=== PATIENT | female | born 1955 | race Caucasian/White ===

== ENCOUNTER 2020-12-22 10:13 | Outpatient (REF) | payer MEDICARE, SELFPAY ==
[2020-12-22 13:43] LABS: MANUAL DIFF FLAG NO
[2020-12-22 13:52] LABS: Glucose Urine UA NEG (NEG); Leukocyte Esterase Urine NEG (NEG); Nitrite Urine NEG (NEG); Urine Blood 2+ (NEG); Urine Ketones NEG (NEG); Urine Protein 2+ MG/DL (NEG-TRACE)
[2020-12-22 13:54] LABS: Appearance Urine HAZY; Color Urine YELLOW
[2020-12-22 13:57] LABS: Basophils Absolute Auto 0.1 X10*3/uL (0.0-0.2); Basophils Percent Auto 0.4 % (0-2); Eosinophils Absolute Auto 0.3 X10*3/uL (0.0-0.4); Eosinophils Percent Auto 2.1 % (0-4); Hematocrit 33.8 % (37-47); Hemoglobin 10.4 g/dl (12.0-16.0); Imm Gran Abs Auto 0.04 X10*3/uL (0.00-0.03); Imm Gran Pct Auto 0.3 % (0.0-0.4); Lymphocytes Absolute Auto 1.3 X10*3/uL (1.2-4.9); Lymphocytes Percent Auto 11.1 % (20-40); Mean Corpuscular HGB Conc 30.8 g/dl (31.0-35.0); Mean Corpuscular Hemoglobin 28.1 pg (27.0-33.0); Mean Corpuscular Volume 91.4 fL (80-98); Mean Platelet Volume 10.7 fL (9.4-12.3); Monocytes Absolute Auto 0.6 X10*3/uL (0.1-1.2); Monocytes Percent Auto 5.2 % (2-11); Neutrophils Absolute Auto 9.7 X10*3/uL (2.0-8.3); Neutrophils Percent Auto 80.9 % (45-73); Platelet Count 363 X10*3/uL (160-400); Red Cell Distribution Width 13.8 % (11.0-16.0); White Blood Count 11.9 X10*3/uL (4.8-10.8)
[2020-12-22 14:10] LABS: Bacteria Urine 4+ /LPF; Squamous Epithelial Cell Urine 4+ /LPF
[2020-12-22 14:11] LABS: Uric Acid Crystals Urine 1+ /LPF
[2020-12-22 14:39] LABS: Alanine Aminotransferase 17 U/L (0-31); Albumin Level 3.9 g/dL (3.5-5.0); Alkaline Phosphatase 121 U/L (39-117); Anion Gap 13 (12-20); Aspartate Amino Transferase 16 U/L (5-31); Bilirubin Direct 0.2 mg/dL (0.0-0.5); Bilirubin Total 0.3 mg/dL (0.0-1.0); Blood Urea Nitrogen 44 mg/dL (9-16); Calcium 9.1 mg/dL (8.4-10.2); Carbon Dioxide 23 mmol/L (22-29); Chloride 112 mmol/L (96-108); Cholesterol 148 mg/dL; Estimated Glomerular Filt Rate 39; Glucose Fasting 42 mg/dL (60-99); HDL Cholesterol 59 mg/dL; LDL Cholesterol Calculated 66 mg/dl; Potassium 5.3 mmol/L (3.3-5.1); Sodium 143 mmol/L (135-145); TSH reflex Free T4 2.41 uIU/mL (0.32-4.0); Total Protein 6.8 g/dL (6.5-8.0); Triglycerides 119 mg/dL
[2020-12-22 14:46] LABS: Creatinine Urine 45.22 mg/dL
[2020-12-22 14:47] LABS: Thyroid Stimulating Hormone 2.26 uIU/mL (0.32-4.0)
== END 2020-12-22 10:14 | disposition home or self-care (01) ==
LOC: HO.WFDLDS 10:13
PROVIDERS: Visit Provider Hospitalist
DX: Z00.00 Encounter for general adult medical examination without abnormal findings (principal)
CPT/HCPCS: 36415; 80048; 80061; 80076; 81001; 82043; 84443; 85025

== ENCOUNTER 2020-12-28 12:17 | Outpatient (REF) | payer MEDICARE, SELFPAY | END 2020-12-28 12:18 | disposition home or self-care (01) | LOC: HO.LAB 12:17 | PROVIDERS: Visit Provider Hospitalist | DX: R82.90 Unspecified abnormal findings in urine (principal) | CPT/HCPCS: 87086 ==

== ENCOUNTER 2021-04-03 07:56 | Outpatient (REF) | payer MEDICARE, SELFPAY ==
[2021-04-03 11:34] LABS: Alanine Aminotransferase 19 U/L (0-31); Albumin Level 3.8 g/dL (3.5-5.0); Alkaline Phosphatase 166 U/L (39-117); Anion Gap 15 (12-20); Aspartate Amino Transferase 15 U/L (5-31); Bilirubin Total 0.5 mg/dL (0.0-1.0); Blood Urea Nitrogen 38 mg/dL (9-16); Calcium 9.1 mg/dL (8.4-10.2); Carbon Dioxide 24 mmol/L (22-29); Chloride 111 mmol/L (96-108); Estimated Glomerular Filt Rate 31; Glucose Random 43 mg/dL (60-115); Potassium 4.8 mmol/L (3.3-5.1); Sodium 145 mmol/L (135-145); Total Protein 6.6 g/dL (6.5-8.0)
== END 2021-04-03 07:57 | disposition home or self-care (01) ==
LOC: HO.WFDLDS 07:56
PROVIDERS: Visit Provider Family Medicine
DX: Z00.00 Encounter for general adult medical examination without abnormal findings (principal); R60.0 Localized edema
CPT/HCPCS: 36415; 80053; 84443

== ENCOUNTER 2021-04-21 11:03 | Outpatient (REF) | payer MEDICARE, SELFPAY ==
[2021-04-21 14:30] LABS: Anion Gap 14 (12-20); Blood Urea Nitrogen 42 mg/dL (9-16); Carbon Dioxide 21 mmol/L (22-29); Chloride 112 mmol/L (96-108); Estimated Glomerular Filt Rate 34; Glucose Random 130 mg/dL (60-115); Potassium 5.2 mmol/L (3.3-5.1); Sodium 142 mmol/L (135-145)
== END 2021-04-21 11:04 | disposition home or self-care (01) ==
LOC: HO.WFDLDS 11:03
PROVIDERS: Visit Provider Family Medicine
DX: Z00.00 Encounter for general adult medical examination without abnormal findings (principal); R60.0 Localized edema
CPT/HCPCS: 36415; 80048

== ENCOUNTER 2021-06-09 12:23 | Inpatient (IN) | payer MEDICARE, OTHER, SELFPAY ==
--- NOTE | ~2021-06-09 | XR_ITS ---
EXAMINATION: XR CHEST CLINICAL INFORMATION: Follow-up infiltrates COMPARISON: Previous chest x-ray most recent from yesterday TECHNIQUE: Frontal view of the chest was obtained. FINDINGS: The cardiac and mediastinal contours are stable. There are bilateral infiltrates, right greater than left. These do not appear appreciably changed from yesterday's exam. There is no pleural effusion or pneumothorax. There are degenerative changes of the spine. XR/XR chest 1V IMPRESSION: Bilateral infiltrates, right greater than left, not appreciably changed from yesterday's exam.
--- NOTE | ~2021-06-09 | XR_ITS ---
EXAMINATION: XR CHEST CLINICAL INFORMATION: Shortness of breath COMPARISON: None TECHNIQUE: Frontal view of the chest was obtained. FINDINGS: Extensive right greater than left multifocal multilobar infiltration. No parapneumonic effusion. No other focal lesion. Heart and mediastinal normal. No CHF. No pleural disease. XR/XR chest 1V IMPRESSION: Baseline examination demonstrates extensive infiltrates consistent with pneumonia or atypical infection.
--- NOTE | ~2021-06-09 | XR_ITS ---
EXAMINATION: XR CHEST CLINICAL INFORMATION: Follow-up SOB COMPARISON: Chest 06/09/2021 TECHNIQUE: Frontal view of the chest was obtained. FINDINGS: The lungs are well-expanded with patchy opacities seen in the right lung and left midlung area suggestive of infiltrates. Heart size is enlarged. The pulmonary vascularity is normal. No gross bony abnormality seen. XR/XR chest 1V IMPRESSION: Mild cardiomegaly. Patchy opacities in the right midlung, right lower lobe and left midlung consistent with infiltrates are stable. Mild cardiomegaly is stable.
--- NOTE | ~2021-06-09 | CT_ITS ---
EXAMINATION: CT CHEST WITHOUT CONTRAST CLINICAL INFORMATION: Hypoxia. Shortness of breath. COMPARISON: CXR from 06/09/2021 and 06/10/2021. TECHNIQUE: Multidetector volumetric CT imaging of the chest was done. Axial MIP volume rendering provided. Sagittal and coronal reformatted images were obtained. This CT examination was performed using dose optimization techniques as appropriate, variously including the following: *Automated exposure control *Adjustment of mA and/or kV according to patient size (this includes techniques or standardized protocols for targeted exams where dose is matched to indication/reason for exam; i.e. extremities or head) *Use of iterative reconstruction technique DLP: 467 mGy-cm FINDINGS: LUNGS AND PLEURA: Trachea and central airways are widely patent and normal in caliber. Lungs have mosaic attenuation. Patchy groundglass opacities are scattered throughout both lungs and there is thickening of septa, most conspicuous in the middle lobe and right lower lobe. Small right pleural effusion and trace left pleural effusion are present. No pneumothorax. CARDIOVASCULAR: Mild cardiomegaly. Small pericardial effusion. There is three-vessel coronary artery calcification. Pulmonary arteries are normal in size. Mild atherosclerotic calcification of the thoracic aorta without aneurysm. MEDIASTINUM AND LOWER NECK: The esophagus and thyroid gland are unremarkable. No mediastinal mass. LYMPHATICS: No axillary or internal mammary lymphadenopathy. No large hilar lymph nodes are seen. Multiple lymph nodes are present in the mediastinum. These lymph nodes measure less than 1 cm, with exception of a subcarinal lymph node of approximately 1 cm short axis dimension. These lymph nodes are likely reactive to the pulmonary disease. UPPER ABDOMEN: Large body habitus. Diffuse hepatic steatosis. Adrenal glands are normal. SKELETAL AND CHEST WALL: Moderate discovertebral degenerative change at C5-C6 and C6-C7. Also, there are mild and moderate degenerative changes in the thoracic spine with multilevel osteophyte or enthesophyte formation of the spine. No suspicious bone lesion. CT/CT chest wo con IMPRESSION: * There are findings of mild cardiomegaly, bilateral groundglass opacities and pleural effusions (small on the right, trace on the left). Constellation of findings suggest presence of edema/CHF, although it would be difficult to exclude any superimposed infectious pneumonitis. * Large body habitus and diffuse hepatic steatosis.
--- NOTE | ~2021-06-09 | XR_ITS ---
EXAMINATION: XR CHEST CLINICAL INFORMATION: Hypoxia follow-up. COMPARISON: Multiple prior studies. Most recent exam Chest x-ray June 10, 2021. CT of chest June 10, 2021 TECHNIQUE: Frontal portable view of the chest was obtained. 9:53 PM FINDINGS: Persistent patchy right lateral multifocal airspace disease. Airspace disease is worse on the right, compared to left lung. There is no significant change of the airspace disease since prior chest x-ray of June 10, 2021. No pleural effusion or pneumothorax. The cardiac and mediastinal contours are unchanged. There is no pulmonary vascular congestion. XR/XR chest 1V IMPRESSION: Persistent patchy multifocal airspace disease, right worse than left.
[2021-06-09 13:40] VITALS: BP 126/48; PULSE 71; RESP 17; TEMP 36.9; O2SAT 84; BMI 46.3
--- NOTE | 2021-06-09 14:13 | ED_ITS ---
HPI - SOB/Dyspnea General Chief Complaint: Upper Respiratory Symptoms Stated Complaint: SOB Time Seen by Provider: 06/09/21 14:12 Source: patient Mode of arrival: ambulatory Limitations: no limitations History of Present Illness HPI Narrative: Patient has history of hypertension diabetes high cholesterol been feeling increased shortness of breath for last 1 month with increased leg swelling seen PCP who gave her Lasix for few days. Shortness of breath has increased since yesterday at home was saturating 86% at room air went to see her PCP and after ambulating from parking lot to the doctor's office her pulse ox dropped to 74% at room air patient does have dry cough specially when she lays down no chest pain no palpitation patient never had a diagnosis of heart failure no fever or chills Related Data Home Medications Medication Instructions Recorded Confirmed cholecalciferol (vitamin D3) 25 25 mcg PO DAILY 08/23/20 06/09/21 mcg (1,000 unit) capsule ibuprofen 800 mg tablet 800 mg PO TID PRN 08/23/20 06/09/21 insulin lispro 100 unit/mL See Protocol SUBCUT QIDACHS 08/23/20 06/09/21 subcutaneous pen ascorbic acid (vitamin C) 500 mg 250 mg PO DAILY 09/22/20 06/09/21 tablet ferrous sulfate 325 mg (65 mg 325 mg PO DAILY 09/22/20 06/09/21 iron) tablet (FeroSul) fexofenadine 180 mg tablet 180 mg PO DAILY 09/22/20 06/09/21 xvftfdvugmsj-Mv-jveq-minerals 1 tab PO DAILY 09/22/20 06/09/21 (Multiple Vitamin, Womens) Previous Rx's Medication Instructions Recorded fluoxetine 20 mg capsule 20 mg PO DAILY 90 Days #90 cap 10/19/20 lisinopril 20 mg tablet 20 mg PO DAILY 30 Days #30 tab 10/19/20 carvedilol 3.125 mg tablet 3.125 mg PO BID #180 tab 02/01/21 amlodipine 10 mg tablet 10 mg PO DAILY #90 tab 05/02/21 atorvastatin 80 mg tablet 80 mg PO DAILY #90 tab 05/30/21 insulin glargine 100 unit/mL (3 70 unit SUBCUT BEDTIME #15 ml 05/30/21 mL) subcutaneous pen (Lantus Solostar U-100 Insulin) pen needle, diabetic 32 gauge x 1 ea TOPICAL BID-TID #300 ea 05/30/21 (BD Ultra-Fine Susana Pen Needle) Allergies Allergy/AdvReac Type Severity Reaction Status Date / Time penicillin V Allergy Severe joint Verified 06/09/21 11:28 swelling and rash Review of Systems Review of Systems: Constitutional : No Weight loss, No Fever, No Chills ENT/Mouth : No sore throat, No Rhinorrhea Eyes: No Eye Pain, No Swelling Cardiovascular : No Chest Pain, no palpitations Respiratory : +Cough, No Sputum, ++ shortness of breath Gastrointestinal : no Nausea, No Vomiting, No Diarrhea, No abdominal Pain, no black stools Genitourinary : No Dysuria, No Urinary Frequency Musculoskeletal : No joint pain, No Myalgias, No Joint Swelling Skin : No Skin Lesions, No rash Neuro : No Weakness, No Numbness, No Dizziness, No Headache Psych : No Anxiety/Panic, No Depression Heme/Lymph: No Bruising, No Lymphadenopathy Endocrine : No Polyuria, No Polydipsia All other systems reviewed and are negative PMFSH Past Medical History Medical History Bilateral lower extremity edema Diabetes type 2, uncontrolled High cholesterol Hypertension, essential Surgical History History of D&C History of surgery Family History Family History Father Stroke Mother Stroke Hypertension Diabetes Maternal Grandmother Diabetes Hypertension Stroke Sister Diabetes Breast cancer Son Bipolar 1 disorder Overweight Social History Social History Alcohol intake: never Smoked in Last 30 Days: No Use of substances other than those prescribed or required for medical reasons: No Advance Directives: Yes Advance Directives Information Provided: Yes Advance Directives on File: No Physical Exam Vital Signs: Vital Signs: Last Vital Signs Temp 98.1 F 06/09/21 14:47 Pulse 73 06/09/21 14:47 Resp 22 H 06/09/21 14:47 BP 130/49 L 06/09/21 14:47 Pulse Ox 98 06/09/21 15:27 Oxygen Flow Rate 5 06/09/21 15:27 Body Mass Index 46.3 Appearance: Alert. Oriented X3. No acute distress. Eyes: PERRLA, No Nystagmus ENT: Pharynx normal. Oral Mucosa moist Neck: Normal inspection. Neck supple. CVS: Normal heart rate and rhythm. Pulses normal. Respiratory: No respiratory distress. Equal air entry bilateral, no whe ezing/rhonchi , bilateral bases fine crackles Abdomen: Soft and nontender. Bowel sounds are present, no mass palpable, no CVA tenderness Skin: Skin warm and dry. Normal skin color. Normal skin turgor. Extremities: 4+ lower extremity edema. No calf tenderness Neuro: Oriented X 3. No motor deficit. No sensory deficit.No cerebellar signs , cranial nerves II-XII intact MDM - SOB/Dyspnea MDM Narrative Medical decision making narrative: Patient with fluid overload with objective shortness of breath and desaturating to 74% on ambulation chest x-ray showed bilateral diffuse infiltrate COVID is negative clinically patient has CHF because of atypical chest x-ray finding will start her on antibiotics Lab Data Attestation: I reviewed the patient's lab results. Result diagrams: 06/09/21 14:15 06/09/21 14:15 Labs: Lab Results 06/09/21 06/09/21 06/09/21 Range/Units 14:04 14:15 14:15 WBC 13.7 H (4.8-10.8) X10*3/uL RBC 3.15 L (4.20-5.50) X10*6/uL Hgb 8.9 L (12.0-16.0) g/dl Hct 28.6 L (37-47) % MCV 90.8 (80-98) fL MCH 28.3 (27.0-33.0) pg MCHC 31.1 (31.0-35.0) g/dl RDW 15.2 (11.0-16.0) % Plt Count 370 (160-400) X10*3/uL MPV 9.8 (9.4-12.3) fL Immature Gran % (Auto) 0.7 H (0.0-0.4) % Neut % (Auto) 86.3 H (45-73) % Lymph % (Auto) 7.2 L (20-40) % [place] % (Auto) 4.3 (2-11) % Eos % (Auto) 1.1 (0-4) % Baso % (Auto) 0.4 (0-2) % Lymph # (Auto) 1.0 L (1.2-4.9) X10*3/uL [place] # (Auto) 0.6 (0.1-1.2) X10*3/uL Eos # (Auto) 0.2 (0.0-0.4) X10*3/uL Baso # (Auto) 0.1 (0.0-0.2) X10*3/uL Abs Immat Gran (auto) 0.09 H (0.00-0.03) X10*3/uL Absolute Neuts (auto) 11.8 H (2.0-8.3) X10*3/uL Absolute Nucleated RBC 0.000 (0.0-0.012) X10*3/uL Nucleated RBC % (auto) 0.0 (0.0-0.2) /100WBC Sodium 141 (135-145) mmol/L Potassium 5.2 H (3.3-5.1) mmol/L Chloride 111 H (96-108) mmol/L Carbon Dioxide 19 L (22-29) mmol/L Anion Gap 16 (12-20) BUN 39 H (9-16) mg/dL Creatinine 1.72 H (0.5-1.4) mg/dL Estim Creat Clear Calc 38.0 Estimated GFR 30 Random Glucose 163 H (60-115) mg/dL Lactic Acid (0.5-2.0) mmol/L Calcium 8.6 (8.4-10.2) mg/dL Total Bilirubin 0.6 (0.0-1.0) mg/dL AST 24 D (5-31) U/L ALT 29 (0-31) U/L Alkaline Phosphatase 132 H D (39-117) U/L Troponin I High Sens (<3.5-17.0) ng/L B-Natriuretic Peptide (<100) pg/mL Total Protein 6.4 L (6.5-8.0) g/dL Albumin 3.6 (3.5-5.0) g/dL Lipase 10 (8-78) U/L Coronavirus (PCR) NEGATIVE (Negative) Influenza Type A (PCR) NEGATIVE (Negative) Influenza Type B (PCR) NEGATIVE (Negative) RSV RNA Qual (PCR) NEGATIVE (Negative) 06/09/21 06/09/21 Range/Units 14:15 14:15 WBC (4.8-10.8) X10*3/uL RBC (4.20-5.50) X10*6/uL Hgb (12.0-16.0) g/dl Hct (37-47) % MCV (80-98) fL MCH (27.0-33.0) pg MCHC (31.0-35.0) g/dl RDW (11.0-16.0) % Plt Count (160-400) X10*3/uL MPV (9.4-12.3) fL Immature Gran % (Auto) (0.0-0.4) % Neut % (Auto) (45-73) % Lymph % (Auto) (20-40) % [place] % (Auto) (2-11) % Eos % (Auto) (0-4) % Baso % (Auto) (0-2) % Lymph # (Auto) (1.2-4.9) X10*3/uL [place] # (Auto) (0.1-1.2) X10*3/uL Eos # (Auto) (0.0-0.4) X10*3/uL Baso # (Auto) (0.0-0.2) X10*3/uL Abs Immat Gran (auto) (0.00-0.03) X10*3/uL Absolute Neuts (auto) (2.0-8.3) X10*3/uL Absolute Nucleated RBC (0.0-0.012) X10*3/uL Nucleated RBC % (auto) (0.0-0.2) /100WBC Sodium (135-145) mmol/L Potassium (3.3-5.1) mmol/L Chloride (96-108) mmol/L Carbon Dioxide (22-29) mmol/L Anion Gap (12-20) BUN (9-16) mg/dL Creatinine (0.5-1.4) mg/dL Estim Creat Clear Calc Estimated GFR Random Glucose (60-115) mg/dL Lactic Acid 0.7 (0.5-2.0) mmol/L Calcium (8.4-10.2) mg/dL Total Bilirubin (0.0-1.0) mg/dL AST (5-31) U/L ALT (0-31) U/L Alkaline Phosphatase (39-117) U/L Troponin I High Sens 7.0 (<3.5-17.0) ng/L B-Natriuretic Peptide 173 H (<100) pg/mL Total Protein (6.5-8.0) g/dL Albumin (3.5-5.0) g/dL Lipase (8-78) U/L Coronavirus (PCR) (Negative) Influenza Type A (PCR) (Negative) Influenza Type B (PCR) (Negative) RSV RNA Qual (PCR) (Negative) ECG Data Attestation: I personally reviewed and interpreted this ECG as follows: Discharge Plan Discharge Clinical Impression: Shortness of breath Congestive heart failure Qualifiers: Heart failure type: unspecified Heart failure chronicity: unspecified Qualified Code(s): I50.9 - Heart failure, unspecified Pneumonia Qualifiers: Pneumonia type: due to unspecified organism Laterality: bilateral Lung location: unspecified part of lung Qualified Code(s): J18.9 - Pneumonia, unspecified organism Patient Disposition: Admitted As Inpatient
[2021-06-09 14:21] LABS: MANUAL DIFF FLAG NO
[2021-06-09 14:26] LABS: Basophils Absolute Auto 0.1 X10*3/uL (0.0-0.2); Basophils Percent Auto 0.4 % (0-2); Eosinophils Absolute Auto 0.2 X10*3/uL (0.0-0.4); Eosinophils Percent Auto 1.1 % (0-4); Hematocrit 28.6 % (37-47); Hemoglobin 8.9 g/dl (12.0-16.0); Imm Gran Abs Auto 0.09 X10*3/uL (0.00-0.03); Imm Gran Pct Auto 0.7 % (0.0-0.4); Lymphocytes Percent Auto 7.2 % (20-40); Mean Corpuscular HGB Conc 31.1 g/dl (31.0-35.0); Mean Corpuscular Hemoglobin 28.3 pg (27.0-33.0); Mean Corpuscular Volume 90.8 fL (80-98); Mean Platelet Volume 9.8 fL (9.4-12.3); Monocytes Absolute Auto 0.6 X10*3/uL (0.1-1.2); Monocytes Percent Auto 4.3 % (2-11); Neutrophils Absolute Auto 11.8 X10*3/uL (2.0-8.3); Neutrophils Percent Auto 86.3 % (45-73); Platelet Count 370 X10*3/uL (160-400); Red Blood Count 3.15 X10*6/uL (4.20-5.50); Red Cell Distribution Width 15.2 % (11.0-16.0); White Blood Count 13.7 X10*3/uL (4.8-10.8)
[2021-06-09 14:45] LABS: Lactic Acid 0.7 mmol/L (0.5-2.0)
[2021-06-09 14:47] VITALS: BP 130/49; PULSE 73; RESP 22; TEMP 36.7; O2SAT 94
[2021-06-09 14:55] LABS: B Type Natriuretic Peptide 173 pg/mL (<100)
[2021-06-09] MEDS: Furosemide 40 MG/4 ML VIAL IVPUSH ×2 (14:55→18:22)
[2021-06-09 15:02] LABS: Alanine Aminotransferase 29 U/L (0-31); Albumin Level 3.6 g/dL (3.5-5.0); Alkaline Phosphatase 132 U/L (39-117); Anion Gap 16 (12-20); Aspartate Amino Transferase 24 U/L (5-31); Bilirubin Total 0.6 mg/dL (0.0-1.0); Blood Urea Nitrogen 39 mg/dL (9-16); Calcium 8.6 mg/dL (8.4-10.2); Carbon Dioxide 19 mmol/L (22-29); Chloride 111 mmol/L (96-108); Estimated Glomerular Filt Rate 30; Glucose Random 163 mg/dL (60-115); Lipase 10 U/L (8-78); Potassium 5.2 mmol/L (3.3-5.1); Sodium 141 mmol/L (135-145); Total Protein 6.4 g/dL (6.5-8.0)
[2021-06-09 15:18] LABS: Influenza A PCR NEGATIVE (Negative); Influenza B PCR NEGATIVE (Negative); Resp Syncy Virus RNA Qual PCR NEGATIVE (Negative); SARS COV2 PCR INHOUSE NEGATIVE (Negative)
[2021-06-09 15:27] VITALS: PULSE 68; O2SAT 98
--- NOTE | 2021-06-09 15:49 | ECG_ITS ---
Test Reason : SOB Blood Pressure : / mmHG Vent. Rate : 072 BPM Atrial Rate : 072 BPM P-R Int : 180 ms QRS Dur : 102 ms QT Int : 414 ms P-R-T Axes : 033 025 029 degrees QTc Int : 453 ms Normal sinus rhythm Normal ECG No previous ECGs available Referred By: Erik Hunt Electronically Signed By:DANIEL URIAS
[2021-06-09] MEDS: Piperacillin Sodium/Tazobactam 3.375 GM in 0.9 % Sodium Chloride 50 ML IV (15:57)
--- NOTE | 2021-06-09 16:13 | HE.PHANOTE ---
Pharmacy Consult ? Medication Reconciliation Pharmacy has completed the medication reconciliation and there were no significant medication issues requiring provider attention.? Silke VelascoD
--- NOTE | 2021-06-09 16:22 | PM.IMHP ---
History of Present Illness Date of Service: 06/09/21 Chief Complaint: sob 66F presented with lower extremity edema and shortness of breath. Patient states that over last 2 months she has been having worsening lower extremity edema, weight gain. This was treated semi successfully with oral Lasix. Over the last few days patient has been worsening shortness of breath. Worse on exertion, denies orthopnea or paroxysmal nocturnal dyspnea. She does no cough worse at night, nonproductive. Denies fever, chills, sick contacts. She went to primary care office was found to be hypoxic and sent to ED. in ED was hypoxic, chest x-ray showed bilateral opacities, was given Lasix and Zosyn. Review of Systems Review of Systems: Constitutional: Denies fever, denies Chills Eyes: denies blurry vision ENT: denies sore throat CVS: denies chest pain Respiratory: dyspnea GI: no abdominal pain : denies dysuria MSK: denies neck pain Skin: denies rash Neuro: denies specific motor weakness Psych: denies suicidal ideation Endocrine: denies heat/cold intolerance Hematologic: denies easy bleeding Allergy: denies hives [facility] Medical History Bilateral lower extremity edema Diabetes type 2, uncontrolled High cholesterol Hypertension, essential Family History Father Stroke Mother Stroke Hypertension Diabetes Maternal Grandmother Diabetes Hypertension Stroke Sister Diabetes Breast cancer Son Bipolar 1 disorder Overweight Family history: reviewed and not pertinent Surgical History History of D&C History of surgery Social History Alcohol intake: never Smoked in Last 30 Days: No Use of substances other than those prescribed or required for medical reasons: No Advance Directives: Yes Advance Directives Information Provided: Yes Advance Directives on File: No Meds Allergies Allergy/AdvReac Type Severity Reaction Status Date / Time penicillin V Allergy Severe joint Verified 06/09/21 11:28 swelling and rash Active Medications: Current Medications Generic Name Dose Route Start Last Admin Trade Name Freq PRN Reason Stop Dose Admin Amlodipine Besylate 10 mg 06/10/21 09:00 Amlodipine Besylate 10 Mg Tablet PO DAILY [facility] Protocol Ascorbic Acid 250 mg 06/10/21 09:00 Ascorbic Acid 250 Mg Tablet PO DAILY [facility] Atorvastatin Calcium 80 mg 06/10/21 09:00 Atorvastatin Calcium 80 Mg Tablet PO DAILY [facility] Carvedilol 3.125 mg 06/09/21 21:00 Carvedilol 3.125 Mg Tablet PO BID [facility] Protocol Dextrose 25 gm 06/09/21 16:17 Dextrose 50 % 25 Gm/50 Ml Vial IVPUSH Q15M PRN per Hypoglycemia Standing Ord. Protocol Fluoxetine HCl 20 mg 06/10/21 09:00 Fluoxetine Hcl 20 Mg Capsule PO DAILY [facility] Furosemide 40 mg 06/09/21 18:00 Furosemide 40 Mg/4 Ml Vial IVPUSH BID@0900,1800 [facility] Protocol Glucose 15 gm 06/09/21 16:17 Glucose Gel 15 Gm Gel..Gram. PO Q15M PRN per Hypoglycemia Standing Ord. Protocol Insulin Glargine 70 unit 06/09/21 21:00 Insulin Glargine,Hum.Rec.Anlog 100 Unit/Ml 10 Ml Vial SUBCUT BEDTIME [facility] Insulin Human Lispro 0 unit 06/09/21 16:30 Insulin Lispro 100 Unit/Ml 3 Ml Vial SUBCUT QIDACHS [facility] Protocol Lisinopril 20 mg 06/10/21 09:00 Lisinopril 20 Mg Tablet PO DAILY [facility] Protocol Non-Formulary Medication 325 mg 06/10/21 09:00 Ferrous Sulfate [Ferosul] PO DAILY [facility] Non-Formulary Medication 180 mg 06/10/21 09:00 Fexofenadine PO DAILY [facility] Non-Formulary Medication 1 tab 06/10/21 09:00 Dzulfkggkbar-Ch-Cjwb-Minerals [Multiple Vitamin, Womens] PO DAILY [facility] Pharmacy Consult 1 each 06/09/21 15:31 Consult Rx Perform Med Rec MISCELLANE ONCE PRN Consult order Vitamin D 25 mcg 06/10/21 09:00 Cholecalciferol (Vitamin D3) 25 Mcg Tablet PO DAILY [facility] Home Medications Medication Instructions Recorded Confirmed Last Taken Type cholecalciferol (vitamin D3) 25 25 mcg PO DAILY 08/23/20 06/09/21 06/09/21 History mcg (1,000 unit) capsule ibuprofen 800 mg tablet 800 mg PO TID PRN 08/23/20 06/09/21 06/09/21 History insulin lispro 100 unit/mL See Protocol SUBCUT QIDACHS 08/23/20 06/09/21 06/09/21 History subcutaneous pen ascorbic acid (vitamin C) 500 mg 250 mg PO DAILY 09/22/20 06/09/21 06/09/21 History tablet ferrous sulfate 325 mg (65 mg 325 mg PO DAILY 09/22/20 06/09/21 06/09/21 History iron) tablet (FeroSul) fexofenadine 180 mg tablet 180 mg PO DAILY 09/22/20 06/09/21 06/09/21 History joisostactsf-Aa-tcoq-minerals 1 tab PO DAILY 09/22/20 06/09/21 06/09/21 History (Multiple Vitamin, Womens) Physical Exam Vital Signs and Narrative: Vital Signs: Last Vital Signs Temp 98.1 F 06/09/21 14:47 Pulse 73 06/09/21 14:47 Resp 22 H 06/09/21 14:47 BP 130/49 L 06/09/21 14:47 Pulse Ox 98 06/09/21 15:27 Oxygen Flow Rate 5 06/09/21 15:27 Body Mass Index 46.3 General: mildly dyspneic HEENT: atraumatic Neck: normal to visual inspection CVS: S1, S2, RRR, systolic murmur Resp: basilar crackles R>L Chest: non tender GI: soft, non tender, non distended : no CVA tenderness Skin: no rashes Extremities: 3+ edema Neuro: Oriented X3, grossly intact Psych: cooperative Results Labs CBC and Chem 7: 06/09/21 14:15 06/09/21 14:15 Labs: Laboratory Results - last 24 hr 06/09/21 06/09/21 06/09/21 14:04 14:15 14:15 MCV 90.8 MCH 28.3 MCHC 31.1 RDW 15.2 Plt Count 370 MPV 9.8 Immature Gran % (Auto) 0.7 H Neut % (Auto) 86.3 H Lymph % (Auto) 7.2 L [place] % (Auto) 4.3 Eos % (Auto) 1.1 Baso % (Auto) 0.4 Lymph # (Auto) 1.0 L [place] # (Auto) 0.6 Eos # (Auto) 0.2 Baso # (Auto) 0.1 Abs Immat Gran (auto) 0.09 H Absolute Neuts (auto) 11.8 H Absolute Nucleated RBC 0.000 Nucleated RBC % (auto) 0.0 Anion Gap 16 Estim Creat Clear Calc 38.0 Estimated GFR 30 Random Glucose 163 H Lactic Acid Calcium 8.6 Total Bilirubin 0.6 AST 24 D ALT 29 Alkaline Phosphatase 132 H D Troponin I High Sens B-Natriuretic Peptide Total Protein 6.4 L Albumin 3.6 Lipase 10 Coronavirus (PCR) NEGATIVE Influenza Type A (PCR) NEGATIVE Influenza Type B (PCR) NEGATIVE RSV RNA Qual (PCR) NEGATIVE 06/09/21 06/09/21 14:15 14:15 MCV MCH MCHC RDW Plt Count MPV Immature Gran % (Auto) Neut % (Auto) Lymph % (Auto) [place] % (Auto) Eos % (Auto) Baso % (Auto) Lymph # (Auto) [place] # (Auto) Eos # (Auto) Baso # (Auto) Abs Immat Gran (auto) Absolute Neuts (auto) Absolute Nucleated RBC Nucleated RBC % (auto) Anion Gap Estim Creat Clear Calc Estimated GFR Random Glucose Lactic Acid 0.7 Calcium Total Bilirubin AST ALT Alkaline Phosphatase Troponin I High Sens 7.0 B-Natriuretic Peptide 173 H Total Protein Albumin Lipase Coronavirus (PCR) Influenza Type A (PCR) Influenza Type B (PCR) RSV RNA Qual (PCR) Imaging Radiologist's Impressions: Impressions Chest X-Ray 06/09/21 14:44 IMPRESSION: Baseline examination demonstrates extensive infiltrates consistent with pneumonia or atypical infection. Assessment and Plan (1) Shortness of breath: Status: Acute 66F presented with sob Acute hypoxic respiratory failure Suspect acute CHF -unspecified IV Lasix, check echo, cardio eval Monitor electrolytes while on diuresis Clinical picture not in favor of pneumonia, will hold off on antibiotics for now Diabetes Basal bolus insulin Hypertension Amlodipine Hyperlipidemia Statin Quality Stroke Does the patient have a stroke diagnosis?: No VTE Prior VTE?: No VTE Risk Level:: Medical - moderate - high VTE Device Contraindication: Treatment Not Indicated VTE Drug Contraindication: N/A - Med Ordered
[2021-06-09 18:26] LABS: Glucose, Whole Blood 146 mg/dL (60-115)
[2021-06-09 21:18] LABS: Glucose, Whole Blood 143 mg/dL (60-115)
[2021-06-09 21:27] VITALS: BP 156/72; PULSE 76
[2021-06-09] MEDS: carvediloL 3.125 MG TABLET PO (21:27)
[2021-06-09] MEDS: Insulin Glargine,Hum.rec.anlog 100 UNIT/ML 10 ML VIAL 70 UNIT SUBCUT (21:28)
[2021-06-09] MEDS: 0.9 % Sodium Chloride Flush 3 ML SYRINGE IVFLUSH (21:28)
[2021-06-09 21:32] VITALS: BP 156/72; PULSE 76; RESP 20; TEMP 37.1; O2SAT 91
[2021-06-09 23:20] VITALS: BP 135/65; PULSE 73; RESP 17; TEMP 37.7; O2SAT 90
[2021-06-10] VITALS (9 sets, daily range): BP systolic 125–149; BP diastolic 58–70; PULSE 71–76; RESP 18–20; TEMP 36.1–37.6; O2SAT 93–97
[2021-06-10 06:54] LABS: Anion Gap 15 (12-20); Blood Urea Nitrogen 40 mg/dL (9-16); Calcium 8.5 mg/dL (8.4-10.2); Carbon Dioxide 23 mmol/L (22-29); Chloride 111 mmol/L (96-108); Creatinine Clr Calc Pharmacy 36.1; Estimated Glomerular Filt Rate 28; Glucose Fasting 82 mg/dL (60-99); Magnesium 2.1 mg/dL (1.6-2.6); Potassium 4.5 mmol/L (3.3-5.1); Sodium 144 mmol/L (135-145)
[2021-06-10 06:59] LABS: Hemoglobin 8.3 g/dl (12.0-16.0); Mean Corpuscular HGB Conc 30.7 g/dl (31.0-35.0); Mean Corpuscular Hemoglobin 27.6 pg (27.0-33.0); Mean Corpuscular Volume 89.7 fL (80-98); Mean Platelet Volume 10.2 fL (9.4-12.3); Platelet Count 395 X10*3/uL (160-400); Red Blood Count 3.01 X10*6/uL (4.20-5.50); Red Cell Distribution Width 14.8 % (11.0-16.0); White Blood Count 13.2 X10*3/uL (4.8-10.8)
[2021-06-10 07:22] LABS: Glucose, Whole Blood 57 mg/dL (60-115)
[2021-06-10 07:39] LABS: Glucose, Whole Blood 67 mg/dL (60-115)
[2021-06-10] MEDS: Loratadine 10 MG TABLET PO (08:00)
[2021-06-10] MEDS: Ferrous Sulfate 324 MG TABLET.DR PO (08:00)
[2021-06-10] MEDS: Cholecalciferol (Vitamin D3) 25 MCG TABLET PO (08:00)
[2021-06-10] MEDS: carvediloL 3.125 MG TABLET PO ×2 (08:00→20:44)
[2021-06-10] MEDS: Rivaroxaban 10 MG TABLET PO (08:00)
[2021-06-10] MEDS: lisinopriL 20 MG TABLET PO (08:01)
[2021-06-10] MEDS: 0.9 % Sodium Chloride Flush 3 ML SYRINGE IVFLUSH ×3 (08:01→21:00)
[2021-06-10] MEDS: Ascorbic Acid 250 MG TABLET PO (08:01)
[2021-06-10] MEDS: amLODIPine Besylate 10 MG TABLET PO (08:01)
[2021-06-10] MEDS: FLUoxetine HCl 20 MG CAPSULE PO (08:01)
[2021-06-10] MEDS: Furosemide 40 MG/4 ML VIAL IVPUSH (08:01)
[2021-06-10] MEDS: Atorvastatin Calcium 80 MG TABLET PO (08:01)
--- NOTE | 2021-06-10 10:20 | HO.PM.IMPN ---
Subjective Subjective Date of Service: 06/10/21 Interval History: somewhat better Cardiovascular Cardiovascular: Reports no additional cardiovascular complaints Gastrointestinal Gastrointestinal: Reports no additional gastrointestinal complaints Physical Exam Vital Signs: Vital Signs: Last Vital Signs Temp 98.1 F 06/10/21 07:31 Pulse 72 06/10/21 08:01 Resp 20 06/10/21 07:31 BP 126/58 L 06/10/21 08:01 Pulse Ox 96 06/10/21 07:31 Oxygen Flow Rate 5 06/09/21 15:27 Body Mass Index 46.3 General: AO X 3, no acute distress Resp: Crackles, R>L CVS: S1,S2,RRR, murmur, 3+ edema GI: soft, non tender, non distended Neuro: motor grossly intact Psych: appropriate affect Objective Data Current Medications Generic Name Dose Route Start Last Admin Trade Name Freq PRN Reason Stop Dose Admin Amlodipine Besylate 10 mg 06/10/21 09:00 06/10/21 08:01 Amlodipine Besylate 10 Mg Tablet PO 10 mg DAILY LORRIE Administration Protocol Ascorbic Acid 250 mg 06/10/21 09:00 06/10/21 08:01 Ascorbic Acid 250 Mg Tablet PO 250 mg DAILY LORRIE Administration Atorvastatin Calcium 80 mg 06/10/21 09:00 06/10/21 08:01 Atorvastatin Calcium 80 Mg Tablet PO 80 mg DAILY LORRIE Administration Carvedilol 3.125 mg 06/09/21 21:00 06/10/21 08:00 Carvedilol 3.125 Mg Tablet PO 3.125 mg BID LORRIE Administration Protocol Dextrose 25 gm 06/09/21 16:17 Dextrose 50 % 25 Gm/50 Ml Vial IVPUSH Q15M PRN per Hypoglycemia Standing Ord. Protocol Ferrous Sulfate 324 mg 06/10/21 09:00 06/10/21 08:00 Ferrous Sulfate 324 Mg Tablet.Dr PO 324 mg DAILY LORRIE Administration Fluoxetine HCl 20 mg 06/10/21 09:00 06/10/21 08:01 Fluoxetine Hcl 20 Mg Capsule PO 20 mg DAILY LORRIE Administration Glucose 15 gm 06/09/21 16:17 Glucose Gel 15 Gm Gel..Gram. PO Q15M PRN per Hypoglycemia Standing Ord. Protocol Ceftriaxone Sodium 1 gm/ 50 mls @ 100 mls/hr 06/10/21 09:30 Sodium Chloride IV Q24H LORRIE Azithromycin 500 mg/ Sodium 250 mls @ 125 mls/hr 06/10/21 10:00 Chloride IV Q24H [facility] Insulin Glargine 50 unit 06/10/21 21:00 Insulin Glargine,Hum.Rec.Anlog 100 Unit/Ml 10 Ml Vial SUBCUT BEDTIME [facility] Insulin Human Lispro 0 unit 06/09/21 16:30 06/10/21 07:38 Insulin Lispro 100 Unit/Ml 3 Ml Vial SUBCUT Not Given QIDACHS [facility] Protocol Lisinopril 20 mg 06/10/21 09:00 06/10/21 08:01 Lisinopril 20 Mg Tablet PO 20 mg DAILY LORRIE Administration Protocol Loratadine 10 mg 06/10/21 09:00 06/10/21 08:00 Loratadine 10 Mg Tablet PO 10 mg DAILY [facility] Administration Multivitamins/Minerals 1 tab 06/10/21 09:00 06/10/21 08:01 Multivitamin With Minerals Tablet PO 1 tab DAILY [facility] Administration Pharmacy Consult 1 each 06/09/21 15:31 Consult Rx Perform Med Rec MISCELLANE ONCE PRN Consult order Rivaroxaban 10 mg 06/10/21 09:00 06/10/21 08:00 Rivaroxaban 10 Mg Tablet PO 10 mg DAILY [facility] Administration Sodium Chloride 3 ml 06/10/21 00:00 06/10/21 08:01 0.9 % Sodium Chloride Flush 3 Ml Syringe IVFLUSH 3 ml QSHIFT [facility] Administration Vitamin D 25 mcg 06/10/21 09:00 06/10/21 08:00 Cholecalciferol (Vitamin D3) 25 Mcg Tablet PO 25 mcg DAILY [facility] Administration Labs CBC & Chem 7: 06/10/21 05:42 06/10/21 05:42 Labs: Laboratory Results - last 24 hr 06/09/21 06/09/21 06/09/21 14:04 14:15 14:15 MCV 90.8 MCH 28.3 MCHC 31.1 RDW 15.2 Plt Count 370 MPV 9.8 Immature Gran % (Auto) 0.7 H Neut % (Auto) 86.3 H Lymph % (Auto) 7.2 L Kings % (Auto) 4.3 Eos % (Auto) 1.1 Baso % (Auto) 0.4 Lymph # (Auto) 1.0 L Kings # (Auto) 0.6 Eos # (Auto) 0.2 Baso # (Auto) 0.1 Abs Immat Gran (auto) 0.09 H Absolute Neuts (auto) 11.8 H Absolute Nucleated RBC 0.000 Nucleated RBC % (auto) 0.0 Anion Gap 16 Estim Creat Clear Calc 38.0 Estimated GFR 30 POC Glucose Random Glucose 163 H Fasting Glucose Lactic Acid Calcium 8.6 Magnesium Total Bilirubin 0.6 AST 24 D ALT 29 Alkaline Phosphatase 132 H D Troponin I High Sens B-Natriuretic Peptide Total Protein 6.4 L Albumin 3.6 Lipase 10 Coronavirus (PCR) NEGATIVE Influenza Type A (PCR) NEGATIVE Influenza Type B (PCR) NEGATIVE RSV RNA Qual (PCR) NEGATIVE 06/09/21 06/09/21 06/09/21 14:15 14:15 18:21 MCV MCH MCHC RDW Plt Count MPV Immature Gran % (Auto) Neut % (Auto) Lymph % (Auto) Kings % (Auto) Eos % (Auto) Baso % (Auto) Lymph # (Auto) Kings # (Auto) Eos # (Auto) Baso # (Auto) Abs Immat Gran (auto) Absolute Neuts (auto) Absolute Nucleated RBC Nucleated RBC % (auto) Anion Gap Estim Creat Clear Calc Estimated GFR POC Glucose 146 H Random Glucose Fasting Glucose Lactic Acid 0.7 Calcium Magnesium Total Bilirubin AST ALT Alkaline Phosphatase Troponin I High Sens 7.0 B-Natriuretic Peptide 173 H Total Protein Albumin Lipase Coronavirus (PCR) Influenza Type A (PCR) Influenza Type B (PCR) RSV RNA Qual (PCR) 06/09/21 06/10/21 06/10/21 21:12 05:42 05:42 MCV 89.7 MCH 27.6 MCHC 30.7 L RDW 14.8 Plt Count 395 MPV 10.2 Immature Gran % (Auto) Neut % (Auto) Lymph % (Auto) Kings % (Auto) Eos % (Auto) Baso % (Auto) Lymph # (Auto) Kings # (Auto) Eos # (Auto) Baso # (Auto) Abs Immat Gran (auto) Absolute Neuts (auto) Absolute Nucleated RBC 0.000 Nucleated RBC % (auto) 0.0 Anion Gap 15 Estim Creat Clear Calc 36.1 Estimated GFR 28 POC Glucose 143 H Random Glucose Fasting Glucose 82 D Lactic Acid Calcium 8.5 Magnesium 2.1 Total Bilirubin AST ALT Alkaline Phosphatase Troponin I High Sens B-Natriuretic Peptide Total Protein Albumin Lipase Coronavirus (PCR) Influenza Type A (PCR) Influenza Type B (PCR) RSV RNA Qual (PCR) 06/10/21 06/10/21 07:11 07:35 MCV MCH MCHC RDW Plt Count MPV Immature Gran % (Auto) Neut % (Auto) Lymph % (Auto) Kings % (Auto) Eos % (Auto) Baso % (Auto) Lymph # (Auto) Kings # (Auto) Eos # (Auto) Baso # (Auto) Abs Immat Gran (auto) Absolute Neuts (auto) Absolute Nucleated RBC Nucleated RBC % (auto) Anion Gap Estim Creat Clear Calc Estimated GFR POC Glucose 57 L* 67 Random Glucose Fasting Glucose Lactic Acid Calcium Magnesium Total Bilirubin AST ALT Alkaline Phosphatase Troponin I High Sens B-Natriuretic Peptide Total Protein Albumin Lipase Coronavirus (PCR) Influenza Type A (PCR) Influenza Type B (PCR) RSV RNA Qual (PCR) Assessment and Plan (1) Congestive heart failure: Status: Acute Assessment and Plan: ?66F presented with sob Acute hypoxic respiratory failure initially Suspected acute CHF -unspecified, however, no improvement in opacities after diuresis, labs not consistent with fluid overload, possibly still had some component of CHF, but appears to be a primary pulmonary issue atypical pnemonia more likely - check RVP, urine legionella, urine strep, ed, esr will dc iv lasix, check echo, cardio eval will start rocephin and azithromycin follow up blood cultures Diabetes Basal bolus insulin Hypertension Amlodipine Hyperlipidemia Statin Quality Stroke Does the patient have a stroke diagnosis?: No VTE Prior VTE?: No VTE Risk Level:: Medical - moderate - high VTE Device Contraindication: Treatment Not Indicated VTE Drug Contraindication: N/A - Med Ordered
[2021-06-10] MEDS: cefTRIAXone sodium 1 GM in 0.9 % Sodium Chloride 50 ML IV (10:35)
[2021-06-10 11:50] LABS: Glucose, Whole Blood 83 mg/dL (60-115)
--- NOTE | 2021-06-10 12:00 | PM.CNCAR ---
History of Present Illness History of Present Illness Date of Service: 06/10/21 Requesting physician: Joseph Morfin Chief complaint: chf Narrative: I was requested to see Amaris in cardiology consultation today for hypoxic respiratory failure. She is a pleasant 66-year-old woman with prior history of hypertension, diabetes for which she was initially not compliant when the last few months has been taking her medications a blood pressures been better controlled. Her diabetes also better control and says hemoglobin A1cs in the mid 6 range. Over the last few months she has been getting progressively increasing shortness of breath and leg edema. For which she has seen her primary care physician had started Lasix as outpatient. However over the last week to 2 weeks she has been getting progressively more short of breath and on when she went to work, her coworkers decided that she should go to the hospital. However she decided rested and the symptoms got better and subsequently she went to see a primary care physician yesterday. There she was noted to be hypoxic and short of breath and was therefore sent to the emergency room for further evaluation and treatment. When she present to the emergency room she was noted to be hypoxic was started on oxygen therapy, initial BNP was mildly elevated and she appeared fluid overloaded and there was a concern for congestive heart failure. She was given Lasix and has had good urine output as per her however they are not well charted. Her creatinine bumped up this morning. She has gone significantly more anemic compared to December blood work. She has no overt bleeding issues. Chest x-ray consistent with infiltrates in her lungs, chest CT done of facial reading pending but there appears to be more right-sided infiltrate and there was question about atypical pneumonia. Patient has no cough no fevers. She has mild leukocytosis. She has no other cardiac symptoms of chest pain no recent exertional chest pain. Denies any palpitation, lightheadedness, syncope. Cardiology consult was sought because of hypoxic respiratory failure and possible CHF. Review of Systems Review of Systems: Constitutional: Denies fever, denies Chills Eyes: denies blurry vision ENT: denies sore throat CVS: denies chest pain Respiratory: dyspnea GI: no abdominal pain : denies dysuria MSK: denies neck pain Skin: denies rash Neuro: denies specific motor weakness Psych: denies suicidal ideation Endocrine: denies heat/cold intolerance Hematologic: denies easy bleeding Allergy: denies hives PMFSH Past Medical History Medical History Bilateral lower extremity edema Diabetes type 2, uncontrolled High cholesterol Hypertension, essential Family History Family History Father Stroke Mother Stroke Hypertension Diabetes Maternal Grandmother Diabetes Hypertension Stroke Sister Diabetes Breast cancer Son Bipolar 1 disorder Overweight Family history: reviewed and not pertinent Surgical History Surgical History History of D&C History of surgery Social History Social History Household Members: Family Housing: House Do you presently have visiting nurse or other home services: No Alcohol intake: never Patient Tobacco Use Status: Never used Tobacco Smoked in Last 30 Days: No e-Cigarette/Vaping Use: Never Used Use of substances other than those prescribed or required for medical reasons: No Currently Displaying Signs/Symptoms of Drug Intoxication Withdrawal: No Have you been hit, kicked, punched, or otherwise hurt by someone within the past year? If so, by whom?: No Do you feel safe in your current relationship?: Yes Is there a partner from a previous relationship who is making you feel unsafe now?: No Are you made to feel afraid or neglected: No Advance Directives: Yes Advance Directives Information Provided: Yes Advance Directives on File: No Advance Directives Date on File: 06/09/21 Do you have thoughts of harming others: None Do you have a plan to hurt others: No Plan Recently lost weight without trying: No Nutrition Risks: No Nutritional Risk Patient : No : No Poor oral hygiene: No Meds Allergies Allergy/AdvReac Type Severity Reaction Status Date / Time penicillin V Allergy Severe joint Verified 06/09/21 11:28 swelling and rash Active Medications: Current Medications Generic Name Dose Route Start Last Admin Trade Name Freq PRN Reason Stop Dose Admin Amlodipine Besylate 10 mg 06/10/21 09:00 06/10/21 08:01 Amlodipine Besylate 10 Mg Tablet PO 10 mg DAILY LORRIE Administration Protocol Ascorbic Acid 250 mg 06/10/21 09:00 06/10/21 08:01 Ascorbic Acid 250 Mg Tablet PO 250 mg DAILY LORRIE Administration Atorvastatin Calcium 80 mg 06/10/21 09:00 06/10/21 08:01 Atorvastatin Calcium 80 Mg Tablet PO 80 mg DAILY LORRIE Administration Carvedilol 3.125 mg 06/09/21 21:00 06/10/21 08:00 Carvedilol 3.125 Mg Tablet PO 3.125 mg BID LORRIE Administration Protocol Dextrose 25 gm 06/09/21 16:17 Dextrose 50 % 25 Gm/50 Ml Vial IVPUSH Q15M PRN per Hypoglycemia Standing Ord. Protocol Ferrous Sulfate 324 mg 06/10/21 09:00 06/10/21 08:00 Ferrous Sulfate 324 Mg Tablet.Dr PO 324 mg DAILY LORRIE Administration Fluoxetine HCl 20 mg 06/10/21 09:00 06/10/21 08:01 Fluoxetine Hcl 20 Mg Capsule PO 20 mg DAILY [facility] Administration Glucose 15 gm 06/09/21 16:17 Glucose Gel 15 Gm Gel..Gram. PO Q15M PRN per Hypoglycemia Standing Ord. Protocol Ceftriaxone Sodium 1 gm/ 50 mls @ 100 mls/hr 06/10/21 09:30 06/10/21 11:23 Sodium Chloride IV Infused Q24H [facility] Infusion Azithromycin 500 mg/ Sodium 250 mls @ 125 mls/hr 06/10/21 12:00 Chloride IV Q24H [facility] Insulin Glargine 50 unit 06/10/21 21:00 Insulin Glargine,Hum.Rec.Anlog 100 Unit/Ml 10 Ml Vial SUBCUT BEDTIME [facility] Insulin Human Lispro 0 unit 06/09/21 16:30 06/10/21 07:38 Insulin Lispro 100 Unit/Ml 3 Ml Vial SUBCUT Not Given QIDACHS [facility] Protocol Lisinopril 20 mg 06/10/21 09:00 06/10/21 08:01 Lisinopril 20 Mg Tablet PO 20 mg DAILY [facility] Administration Protocol Loratadine 10 mg 06/10/21 09:00 06/10/21 08:00 Loratadine 10 Mg Tablet PO 10 mg DAILY [facility] Administration Multivitamins/Minerals 1 tab 06/10/21 09:00 06/10/21 08:01 Multivitamin With Minerals Tablet PO 1 tab DAILY [facility] Administration Pharmacy Consult 1 each 06/09/21 15:31 Consult Rx Perform Med Rec MISCELLANE ONCE PRN Consult order Rivaroxaban 10 mg 06/10/21 09:00 06/10/21 08:00 Rivaroxaban 10 Mg Tablet PO 10 mg DAILY LORRIE Administration Sodium Chloride 3 ml 06/10/21 00:00 06/10/21 08:01 0.9 % Sodium Chloride Flush 3 Ml Syringe IVFLUSH 3 ml QSHIFT [facility] Administration Vitamin D 25 mcg 06/10/21 09:00 06/10/21 08:00 Cholecalciferol (Vitamin D3) 25 Mcg Tablet PO 25 mcg DAILY LORRIE Administration Home Medications Medication Instructions Recorded Confirmed Last Taken Type cholecalciferol (vitamin D3) 25 25 mcg PO DAILY 08/23/20 06/09/21 06/09/21 History mcg (1,000 unit) capsule ibuprofen 800 mg tablet 800 mg PO TID PRN 08/23/20 06/09/21 06/09/21 History insulin lispro 100 unit/mL See Protocol SUBCUT QIDACHS 08/23/20 06/09/21 06/09/21 History subcutaneous pen ascorbic acid (vitamin C) 500 mg 250 mg PO DAILY 09/22/20 06/09/21 06/09/21 History tablet ferrous sulfate 325 mg (65 mg 325 mg PO DAILY 09/22/20 06/09/21 06/09/21 History iron) tablet (FeroSul) fexofenadine 180 mg tablet 180 mg PO DAILY 09/22/20 06/09/21 06/09/21 History vjrooyadddlu-Zn-ajuj-minerals 1 tab PO DAILY 09/22/20 06/09/21 06/09/21 History (Multiple Vitamin, Womens) Physical Exam Vital Signs: Vital Signs: Last Vital Signs Temp 97.6 F 06/10/21 11:28 Pulse 76 06/10/21 11:28 Resp 18 06/10/21 11:28 BP 139/61 06/10/21 11:28 Pulse Ox 94 06/10/21 11:28 Oxygen Flow Rate 5 06/09/21 15:27 Body Mass Index 46.3 Const: General: cooperative, comfortable, no acute distress, alert and awake Nutritional Appearance: obese morbidly obese Orientation/consciousness: patient oriented x3 HENMT: Head: Yes normocephalic and Yes atraumatic Neck: Neck: Yes trachea midline, Yes supple and Yes no JVD (Positive abdominal jugular reflux ) Resp: Effort & Inspection: normal respiratory effort Auscultation: crackles on the right at the base and diminished lung sounds Cardio: Jugular venous distension: no JVD Rate: regular rate Rhythm: regular rhythm Heart sounds: S1 normal heart sound present, S2 normal heart sound present and Murmur heart sound present systolic mid, with radiation other (Base) and at the apex GI: Inspection: Yes Abdominal panniculus present and Yes obesity Auscultation: normal bowel sounds Skin: General skin exam: no rashes or lesions noted Neuro: General: patient oriented x3 and no focal motor deficits Extrem: General: No clubbing, No cyanosis and Yes edema Results Labs and Meds Result diagrams: 06/10/21 05:42 06/10/21 05:42 Lab results: Laboratory Results - last 24 hr 06/09/21 06/09/21 06/09/21 14:04 14:15 14:15 WBC 13.7 H RBC 3.15 L Hgb 8.9 L Hct 28.6 L MCV 90.8 MCH 28.3 MCHC 31.1 RDW 15.2 Plt Count 370 MPV 9.8 Immature Gran % (Auto) 0.7 H Neut % (Auto) 86.3 H Lymph % (Auto) 7.2 L Miller % (Auto) 4.3 Eos % (Auto) 1.1 Baso % (Auto) 0.4 Lymph # (Auto) 1.0 L Miller # (Auto) 0.6 Eos # (Auto) 0.2 Baso # (Auto) 0.1 Abs Immat Gran (auto) 0.09 H Absolute Neuts (auto) 11.8 H Absolute Nucleated RBC 0.000 Nucleated RBC % (auto) 0.0 Sodium 141 Potassium 5.2 H Chloride 111 H Carbon Dioxide 19 L Anion Gap 16 BUN 39 H Creatinine 1.72 H Estim Creat Clear Calc 38.0 Estimated GFR 30 POC Glucose Random Glucose 163 H Fasting Glucose Lactic Acid Calcium 8.6 Magnesium Total Bilirubin 0.6 AST 24 D ALT 29 Alkaline Phosphatase 132 H D Troponin I High Sens B-Natriuretic Peptide Total Protein 6.4 L Albumin 3.6 Lipase 10 Coronavirus (PCR) NEGATIVE Influenza Type A (PCR) NEGATIVE Influenza Type B (PCR) NEGATIVE RSV RNA Qual (PCR) NEGATIVE 06/09/21 06/09/21 06/09/21 14:15 14:15 18:21 WBC RBC Hgb Hct MCV MCH MCHC RDW Plt Count MPV Immature Gran % (Auto) Neut % (Auto) Lymph % (Auto) Miller % (Auto) Eos % (Auto) Baso % (Auto) Lymph # (Auto) Miller # (Auto) Eos # (Auto) Baso # (Auto) Abs Immat Gran (auto) Absolute Neuts (auto) Absolute Nucleated RBC Nucleated RBC % (auto) Sodium Potassium Chloride Carbon Dioxide Anion Gap BUN Creatinine Estim Creat Clear Calc Estimated GFR POC Glucose 146 H Random Glucose Fasting Glucose Lactic Acid 0.7 Calcium Magnesium Total Bilirubin AST ALT Alkaline Phosphatase Troponin I High Sens 7.0 B-Natriuretic Peptide 173 H Total Protein Albumin Lipase Coronavirus (PCR) Influenza Type A (PCR) Influenza Type B (PCR) RSV RNA Qual (PCR) 06/09/21 06/10/21 06/10/21 21:12 05:42 05:42 WBC 13.2 H RBC 3.01 L Hgb 8.3 L Hct 27.0 L MCV 89.7 MCH 27.6 MCHC 30.7 L RDW 14.8 Plt Count 395 MPV 10.2 Immature Gran % (Auto) Neut % (Auto) Lymph % (Auto) Miller % (Auto) Eos % (Auto) Baso % (Auto) Lymph # (Auto) Miller # (Auto) Eos # (Auto) Baso # (Auto) Abs Immat Gran (auto) Absolute Neuts (auto) Absolute Nucleated RBC 0.000 Nucleated RBC % (auto) 0.0 Sodium 144 Potassium 4.5 Chloride 111 H Carbon Dioxide 23 Anion Gap 15 BUN 40 H Creatinine 1.81 H Estim Creat Clear Calc 36.1 Estimated GFR 28 POC Glucose 143 H Random Glucose Fasting Glucose 82 D Lactic Acid Calcium 8.5 Magnesium 2.1 Total Bilirubin AST ALT Alkaline Phosphatase Troponin I High Sens B-Natriuretic Peptide Total Protein Albumin Lipase Coronavirus (PCR) Influenza Type A (PCR) Influenza Type B (PCR) RSV RNA Qual (PCR) 06/10/21 06/10/21 06/10/21 07:11 07:35 11:31 WBC RBC Hgb Hct MCV MCH MCHC RDW Plt Count MPV Immature Gran % (Auto) Neut % (Auto) Lymph % (Auto) Miller % (Auto) Eos % (Auto) Baso % (Auto) Lymph # (Auto) Miller # (Auto) Eos # (Auto) Baso # (Auto) Abs Immat Gran (auto) Absolute Neuts (auto) Absolute Nucleated RBC Nucleated RBC % (auto) Sodium Potassium Chloride Carbon Dioxide Anion Gap BUN Creatinine Estim Creat Clear Calc Estimated GFR POC Glucose 57 L* 67 83 Random Glucose Fasting Glucose Lactic Acid Calcium Magnesium Total Bilirubin AST ALT Alkaline Phosphatase Troponin I High Sens B-Natriuretic Peptide Total Protein Albumin Lipase Coronavirus (PCR) Influenza Type A (PCR) Influenza Type B (PCR) RSV RNA Qual (PCR) EKG shows normal sinus rhythm with normal EKG Imaging Radiologist's impression: Impressions Chest X-Ray 06/09/21 14:44 IMPRESSION: Baseline examination demonstrates extensive infiltrates consistent with pneumonia or atypical infection. Chest X-Ray 06/10/21 07:49 IMPRESSION: Mild cardiomegaly. Patchy opacities in the right midlung, right lower lobe and left midlung consistent with infiltrates are stable. Mild cardiomegaly is stable. Assessment and Plan (1) Acute respiratory failure with hypoxia: Status: Acute Acute hypoxic respiratory failure in elderly woman who has finding suggestive atypical pneumonia or inflammatory process in both lungs, minimally elevated BNP on admission given Lasix, subsequently bump in creatinine. Clinically today does not appear to be markedly fluid overloaded. However this is difficult to assess given her body habitus. She also has definitely systolic murmur suggestive normal valvular abnormality. Echocardiogram to be obtained today. Agree with holding Lasix today given her elevated creatinine. Also workup for anemia needs to be pursued and may consider transfusion. Pulmonary consult should be obtained as well. Continue supportive care with oxygen therapy. Blood pressure is currently well optimized on current regimen. Continue the same. Continue strict intake and output chart, this does not appear to be accurately charted at this point time. Will review the echocardiogram and get back to the primary team about the resolves especially right atrial filling pressures. Eventually require workup for sleep apnea. Will follow with the patient Procedures Date of Service Date of Service: 06/10/21
--- NOTE | 2021-06-10 12:14 | CA_ITS ---
Transthoracic Echocardiogram Patient (Last, First, Middle): Amaris Hook, Gender: Female Date of : 1955 Age: 66 Procedure Date: 06/10/2021 Procedure Type: Transthoracic Echocardiogram [place] [facility] [place] Height: 157.48 cm Weight: 114.76 kg BSA: 2.11 m2 Heart Rate: bpm BP: 139 / 61 mmHg Feed Crusher Operator: PRABHA Grider MD: Joseph Morfin MD Sleep Lab Technologist: Aidan Penn MD Symptoms: chf Study Quality: Fair ECG Rhythm: Sinus Conclusions: - 1. Normal LV systolic function with pseudonormal filling pattern 2. Mild aortic stenosis and mild mitral regurgitation 3. Normal RV systolic pressure 4. No gross pericardial effusion Findings Left Ventricle Normal left ventricular size, thickness, and systolic function. The visually estimated ejection fraction is between 55-60%. Spectral Doppler is indicative of a pseudonormal filling pattern. E/E prime ratio is between 8 and 15 consistent with indeterminate filling pressures. Right Ventricle Mildly increased right ventricular cavity size. There is normal right ventricular systolic function. Atria The left atrium is likely dilated. Interatrial shunt cannot be excluded. The right atrium is normal in size. Aortic Valve The aortic valve was not well visualized. There is mild calcification of the aortic valve. There is mild aortic valve stenosis. The peak aortic gradient is 29 mmHg.The mean gradient is 14 mmHg. The aortic valve area is 1.54 cm2. There is no aortic valve regurgitation. Mitral Valve There is mild anterior and moderate posterior mitral leaflet thickening. There is mild mitral annular calcification. There is mild mitral valve regurgitation. There is no mitral valve stenosis. Pulmonic Valve The pulmonic valve was not well visualized. Tricuspid Valve Likely normal tricuspid valve structure and function. There is mild tricuspid valve regurgitation. The right ventricular systolic pressure is normal. The right ventricular systolic pressure is 20 mmHg. Normal right atrial pressure. There is no evidence of pulmonary hypertension. Great Vessels All visible segments of the aorta are normal in size. The pulmonary artery was not well visualized. Venous The inferior vena cava is normal in size. Pericardium/Pleural There is no evidence of pericardial effusion. Prior Study Comparison No prior study available for comparison. Measurements 2D Linear Measurements IVSd: 1.03 0.6-0.9/0.6-1.0 cm LVIDd: 4.91 3.9-5.3/4.2-5.9 cm LVIDd Index: 2.33 2.4-3.2/2.2-3.1 cm/m2 LVIDs: 3.17 2.0-3.6 cm LVPWd: 1.00 0.7-1.1 cm Ao Root: 3.10 2.1-3.5 cm LA Diam: 3.70 2.7-3.8/3.0-4.0 cm LAIDs Index: 1.75 1.5-2.3 cm/m2 LV Mass: 224.52 67-162/88-224 g LV Mass Index: 106.41 43-95/49-115 g/m2 LVOT Diam: 2.10 3.0+(-)1.3 cm 2D Systolic Function EF 4C: 55.20 >55% EF 2C: 57.50 >55% EF BiP: 56.10 >55% Mitral Valve MV Pk E: 1.31 MV PK A: 1.25 MV Decel Time: 192.00 E/A: 1.00 E'Lateral: 7.51 E'Medial: 7.07 E/E' Med: 18.50 E/E' Lat: 17.40 PHT: 56.00 MVA PHT: 3.93 Decel [place]: 6.80 Aortic Valve AoV Pk Manny: 2.69 AoV Mn Manny: 1.75 AoV VTI: 0.55 AoV Pk Grad: 29.00 Aov Mn Grad: 14.00 MEIR Cont.VTI: 1.54 LVOT LVOT Pk Manny: 1.03 LVOT Mn Manny: 0.79 LVOT VTI: 0.25 LVOT Pk Grad: 4.00 LVOT Mn Grad: 3.00 LVOT Diam: 2.10 LVOT Area: 3.46 Diastolic Function MV Pk E: 1.31 MV Pk A: 1.25 E/A: 1.00 E'Medial: 7.07 E/E' Med: 18.50 E' Laterial: 7.51 E/E' Lat: 17.40 Right Ventricle TAPSE (mm): 2.26 TVS' Manny: 15.10 Tricuspid Valve TR Pk Manny: 2.05 TR Pk Grad: 17.00 RA Press: 3.00 RVSP: 20.00 Great Vessels Aorta Ao Root-2D: 3.10 2.0-3.7 cm Ao Asc: 3.60 2.1-3.4 cm Ao Arch: 3.10 Updated in Other Vendor System with Status of Final Aidan Penn MD electronically signed on 06/10/2021 1:16:35 PM with status of Final
[2021-06-10] MEDS: Azithromycin 500 MG in 0.9 % Sodium Chloride 250 ML 125 MG IV (12:22)
[2021-06-10 15:51] LABS: Adenovirus PCR Not Detected (Not Detect.); Bordetella parapertussis PCR Not Detected (Not Detect.); Bordetella pertussis PCR Not Detected (Not Detect.); Chlamydia pneumoniae PCR Not Detected (Not Detect.); Coronavirus 229E PCR Not Detected (Not Detect.); Coronavirus HKU1 PCR Not Detected (Not Detect.); Coronavirus NL63 PCR Not Detected (Not Detect.); Coronavirus OC43 PCR Not Detected (Not Detect.); Human metapneumovirus PCR Not Detected (Not Detect.); Influenza A PCR Not Detected (Not Detect.); Influenza B PCR Not Detected (Not Detect.); Mycoplasma pneumoniae PCR Not Detected (Not Detect.); Parainfluenza 1 PCR Not Detected (Not Detect.); Parainfluenza 2 PCR Not Detected (Not Detect.); Parainfluenza 3 PCR Not Detected (Not Detect.); Parainfluenza 4 PCR Not Detected (Not Detect.); RSV PCR Not Detected (Not Detect.); Rhino/Enterovirus PCR Not Detected (Not Detect.); SARS-CoV-2 PCR Not Detected (Not Detect.)
[2021-06-10 15:56] LABS: Glucose, Whole Blood 70 mg/dL (60-115)
[2021-06-10 20:30] LABS: Glucose, Whole Blood 104 mg/dL (60-115)
[2021-06-11] VITALS (9 sets, daily range): BP systolic 112–149; BP diastolic 54–70; PULSE 69–81; RESP 17–20; TEMP 35.9–36.9; O2SAT 94–97
[2021-06-11 06:04] LABS: Hematocrit 27.2 % (37-47); Hemoglobin 8.4 g/dl (12.0-16.0); Mean Corpuscular HGB Conc 30.9 g/dl (31.0-35.0); Mean Corpuscular Hemoglobin 27.5 pg (27.0-33.0); Mean Corpuscular Volume 88.9 fL (80-98); Mean Platelet Volume 9.7 fL (9.4-12.3); Platelet Count 373 X10*3/uL (160-400); Red Blood Count 3.06 X10*6/uL (4.20-5.50); White Blood Count 11.3 X10*3/uL (4.8-10.8)
[2021-06-11 06:34] LABS: Anion Gap 15 (12-20); Blood Urea Nitrogen 42 mg/dL (9-16); Calcium 8.3 mg/dL (8.4-10.2); Carbon Dioxide 23 mmol/L (22-29); Chloride 108 mmol/L (96-108); Estimated Glomerular Filt Rate 28; Glucose Fasting 75 mg/dL (60-99); Potassium 4.4 mmol/L (3.3-5.1); Sodium 142 mmol/L (135-145)
[2021-06-11 06:51] LABS: Erythrocyte Sedimentation Rate 98 MM/HR (0-20)
[2021-06-11 08:02] LABS: Glucose, Whole Blood 82 mg/dL (60-115)
--- NOTE | 2021-06-11 08:34 | MHC.CM.PN ---
CM MET WITH PT WHO REPORTS SHE SHARES A HOME WITH HER SON AND [employer]. SHE REPORTS SHE IS INDEPENDENT AT BASELINE BUT FAMILY DOES HELP PRN. PT DENIES HAVING ANY HOME OR COMMUNITY SERVICES AND USES A CANE ON OCCASION. PT REPORTS SHE USUALLY SEES KAM[facility] MIGUEL FOR PRIMARY CARE HOWEVER SHE IS OUT FOR AN EXTENDED AMOUNT OF TIME SO PT HAS BEEN SEEING TREMAINE KOVACS IN HER ABSENCE. PT DID NOT HAVE A HCP BUT COMPLETED ONE TODAY NAMING HER [id number], KIKE ([phone]) AND HER SON, CARMINA ([phone]) HER PRIMARY AND SECONDARY AGENTS RESPECTIVELY. IMM DELIVERED ON 06/10 CURRENT DC PLAN IS HOME WITH NO SERVICES FAMILY TO TRANSPORT
[2021-06-11] MEDS: carvediloL 3.125 MG TABLET PO ×2 (09:45→21:08)
[2021-06-11] MEDS: FLUoxetine HCl 20 MG CAPSULE PO (09:45)
[2021-06-11] MEDS: Ascorbic Acid 250 MG TABLET PO (09:45)
[2021-06-11] MEDS: lisinopriL 20 MG TABLET PO (09:46)
[2021-06-11] MEDS: cefTRIAXone sodium 1 GM in 0.9 % Sodium Chloride 50 ML IV (09:46)
[2021-06-11] MEDS: amLODIPine Besylate 10 MG TABLET PO (09:46)
[2021-06-11] MEDS: Atorvastatin Calcium 80 MG TABLET PO (09:46)
[2021-06-11] MEDS: Cholecalciferol (Vitamin D3) 25 MCG TABLET PO (09:46)
[2021-06-11] MEDS: Rivaroxaban 10 MG TABLET PO (09:46)
[2021-06-11] MEDS: Ferrous Sulfate 324 MG TABLET.DR PO (09:46)
[2021-06-11] MEDS: Loratadine 10 MG TABLET PO (09:46)
[2021-06-11] MEDS: 0.9 % Sodium Chloride Flush 3 ML SYRINGE IVFLUSH ×3 (09:47→21:10)
--- NOTE | 2021-06-11 10:18 | HO.PM.IMPN ---
Subjective Subjective Date of Service: 06/11/21 Interval History: about the same today Cardiovascular Cardiovascular: Reports no additional cardiovascular complaints Respiratory Respiratory: Reports no additional respiratory complaints Physical Exam Vital Signs: Vital Signs: Last Vital Signs Temp 98.5 F 06/11/21 07:36 Pulse 74 06/11/21 09:46 Resp 20 06/11/21 07:36 BP 141/67 H 06/11/21 09:46 Pulse Ox 96 06/11/21 07:36 Oxygen Flow Rate 5 06/09/21 15:27 Body Mass Index 46.3 General: AO X 3, no acute distress Resp:? Crackles, R>L CVS: S1,S2,RRR, murmur, 3+ edema GI: soft, non tender, non distended Neuro:? motor grossly intact Psych: appropriate affect Objective Data Current Medications Generic Name Dose Route Start Last Admin Trade Name Freq PRN Reason Stop Dose Admin Amlodipine Besylate 10 mg 06/10/21 09:00 06/11/21 09:46 Amlodipine Besylate 10 Mg Tablet PO 10 mg DAILY [facility] Administration Protocol Ascorbic Acid 250 mg 06/10/21 09:00 06/11/21 09:45 Ascorbic Acid 250 Mg Tablet PO 250 mg DAILY [facility] Administration Atorvastatin Calcium 80 mg 06/10/21 09:00 06/11/21 09:46 Atorvastatin Calcium 80 Mg Tablet PO 80 mg DAILY [facility] Administration Carvedilol 3.125 mg 06/09/21 21:00 06/11/21 09:45 Carvedilol 3.125 Mg Tablet PO 3.125 mg BID [facility]E Administration Protocol Dextrose 25 gm 06/09/21 16:17 Dextrose 50 % 25 Gm/50 Ml Vial IVPUSH Q15M PRN per Hypoglycemia Standing Ord. Protocol Ferrous Sulfate 324 mg 06/10/21 09:00 06/11/21 09:46 Ferrous Sulfate 324 Mg Tablet.Dr PO 324 mg DAILY [facility] Administration Fluoxetine HCl 20 mg 06/10/21 09:00 06/11/21 09:45 Fluoxetine Hcl 20 Mg Capsule PO 20 mg DAILY [facility] Administration Glucose 15 gm 06/09/21 16:17 Glucose Gel 15 Gm Gel..Gram. PO Q15M PRN per Hypoglycemia Standing Ord. Protocol Ceftriaxone Sodium 1 gm/ 50 mls @ 100 mls/hr 06/10/21 09:30 06/11/21 09:46 Sodium Chloride IV 100 mls/hr Q24H [facility] Administration Azithromycin 500 mg/ Sodium 250 mls @ 125 mls/hr 06/10/21 12:00 06/10/21 14:44 Chloride IV Infused Q24H [facility] Infusion Insulin Glargine 50 unit 06/10/21 21:00 06/10/21 20:58 Insulin Glargine,Hum.Rec.Anlog 100 Unit/Ml 10 Ml Vial SUBCUT Not Given BEDTIME [facility] Insulin Human Lispro 0 unit 06/09/21 16:30 06/11/21 08:48 Insulin Lispro 100 Unit/Ml 3 Ml Vial SUBCUT Not Given QIDACHS [facility] Protocol Lisinopril 20 mg 06/10/21 09:00 06/11/21 09:46 Lisinopril 20 Mg Tablet PO 20 mg DAILY [facility] Administration Protocol Loratadine 10 mg 06/10/21 09:00 06/11/21 09:46 Loratadine 10 Mg Tablet PO 10 mg DAILY [facility] Administration Multivitamins/Minerals 1 tab 06/10/21 09:00 06/11/21 09:45 Multivitamin With Minerals Tablet PO 1 tab DAILY [facility] Administration Pharmacy Consult 1 each 06/09/21 15:31 Consult Rx Perform Med Rec MISCELLANE ONCE PRN Consult order Rivaroxaban 10 mg 06/10/21 09:00 06/11/21 09:46 Rivaroxaban 10 Mg Tablet PO 10 mg DAILY [facility] Administration Sodium Chloride 3 ml 06/10/21 00:00 06/11/21 09:47 0.9 % Sodium Chloride Flush 3 Ml Syringe IVFLUSH 3 ml QSHIFT [facility] Administration Vitamin D 25 mcg 06/10/21 09:00 06/11/21 09:46 Cholecalciferol (Vitamin D3) 25 Mcg Tablet PO 25 mcg DAILY [facility] Administration Labs CBC & Chem 7: 06/11/21 05:44 06/11/21 05:44 Labs: Laboratory Results - last 24 hr 06/10/21 06/10/21 06/10/21 11:31 15:48 20:25 MCV MCH MCHC RDW Plt Count MPV Absolute Nucleated RBC Nucleated RBC % (auto) ESR Anion Gap Estim Creat Clear Calc Estimated GFR POC Glucose 83 70 104 Fasting Glucose Calcium 06/11/21 06/11/21 06/11/21 05:44 05:44 05:44 MCV 88.9 MCH 27.5 MCHC 30.9 L RDW 15.0 Plt Count 373 MPV 9.7 Absolute Nucleated RBC 0.000 Nucleated RBC % (auto) 0.0 ESR 98 H Anion Gap 15 Estim Creat Clear Calc 36.0 Estimated GFR 28 POC Glucose Fasting Glucose 75 Calcium 8.3 L 06/11/21 07:55 MCV MCH MCHC RDW Plt Count MPV Absolute Nucleated RBC Nucleated RBC % (auto) ESR Anion Gap Estim Creat Clear Calc Estimated GFR POC Glucose 82 Fasting Glucose Calcium Microbiology Microbiology Results: Microbiology 06/09/21 14:15 Blood Culture - Final Blood - Venous Coag negative Staphylococcus 06/09/21 14:15 Blood Culture - Preliminary Blood - Venous Prelim: GPC Gram Stain only Assessment and Plan (1) Congestive heart failure: Status: Acute Assessment and Plan: ?66F presented with sob Acute hypoxic respiratory failure multifactorial acute on chronic diastolic chf - holding lasix for now, does not appear significantly overloaded atypical pneumonia - check RVP, urine legionella, urine strep, ed, esr rocephin and azithromycin follow up blood cultures - coag negative staph - contaminant Diabetes Basal bolus insulin Hypertension Amlodipine Hyperlipidemia Statin Quality Stroke Does the patient have a stroke diagnosis?: No VTE Prior VTE?: No VTE Risk Level:: Medical - moderate - high VTE Device Contraindication: Treatment Not Indicated VTE Drug Contraindication: N/A - Med Ordered
[2021-06-11 12:04] LABS: Glucose, Whole Blood 101 mg/dL (60-115)
[2021-06-11] MEDS: Azithromycin 500 MG in 0.9 % Sodium Chloride 250 ML 125 MG IV (12:31)
[2021-06-11 16:10] LABS: Glucose, Whole Blood 155 mg/dL (60-115)
[2021-06-11] MEDS: Insulin Lispro 100 UNIT/ML 3 ML VIAL SUBCUT ×2 (16:26→21:09)
[2021-06-11 20:31] LABS: Glucose, Whole Blood 166 mg/dL (60-115)
[2021-06-12] VITALS (8 sets, daily range): BP systolic 118–152; BP diastolic 55–70; PULSE 67–74; RESP 16–20; TEMP 35.7–36.8; O2SAT 94–97; BMI 50.3
[2021-06-12 04:55] LABS: Hematocrit 23.9 % (37-47); Hemoglobin 7.6 g/dl (12.0-16.0); Mean Corpuscular HGB Conc 31.8 g/dl (31.0-35.0); Mean Corpuscular Hemoglobin 28.6 pg (27.0-33.0); Mean Corpuscular Volume 89.8 fL (80-98); Mean Platelet Volume 9.7 fL (9.4-12.3); Platelet Count 357 X10*3/uL (160-400); Red Blood Count 2.66 X10*6/uL (4.20-5.50); Red Cell Distribution Width 14.9 % (11.0-16.0)
[2021-06-12 05:21] LABS: Anion Gap 13 (12-20); Blood Urea Nitrogen 46 mg/dL (9-16); Calcium 8.1 mg/dL (8.4-10.2); Carbon Dioxide 24 mmol/L (22-29); Chloride 109 mmol/L (96-108); Estimated Glomerular Filt Rate 28; Glucose Fasting 171 mg/dL (60-99); Potassium 5.3 mmol/L (3.3-5.1); Sodium 141 mmol/L (135-145)
[2021-06-12 07:25] LABS: Glucose, Whole Blood 141 mg/dL (60-115)
[2021-06-12] MEDS: Rivaroxaban 10 MG TABLET PO (09:01)
[2021-06-12] MEDS: Atorvastatin Calcium 80 MG TABLET PO (09:01)
[2021-06-12] MEDS: Cholecalciferol (Vitamin D3) 25 MCG TABLET PO (09:01)
[2021-06-12] MEDS: Ferrous Sulfate 324 MG TABLET.DR PO (09:01)
[2021-06-12] MEDS: amLODIPine Besylate 10 MG TABLET PO (09:02)
[2021-06-12] MEDS: Loratadine 10 MG TABLET PO (09:02)
[2021-06-12] MEDS: 0.9 % Sodium Chloride Flush 3 ML SYRINGE IVFLUSH ×3 (09:02→19:57)
[2021-06-12] MEDS: FLUoxetine HCl 20 MG CAPSULE PO (09:02)
[2021-06-12] MEDS: carvediloL 3.125 MG TABLET PO ×2 (09:02→19:56)
[2021-06-12] MEDS: Ascorbic Acid 250 MG TABLET PO (09:02)
[2021-06-12] MEDS: cefTRIAXone sodium 1 GM in 0.9 % Sodium Chloride 50 ML IV (09:02)
--- NOTE | 2021-06-12 10:20 | P.CDIC_ITS ---
CDI Concurrent Query Service Date: 06/12/21 Documentation Clarification: Please clarify if you are treating a proba ble/suspected/likely or confirmed: - Acute renal failure - Acute renal failure with suspected ATN - Acute renal failure with other pathology (medullary, papillary, or cortical necrosis) - Acute renal failure (with type, appropriate) on Chronic Kidney Disease (CKD) - Acute kidney injury (non-traumatic) - CKD, please provide stage - Other (please specify): - Unable to determine Provider Response: CKD Stage 3 PLEASE DO NOT DELETE/MODIFY EXISTING CONTENT Additional information is needed in order to code to the highest accuracy and appropriate Severity of Illness (SOI). Please clarify the information noted below in your progress notes and discharge summary. Risk Factors/Clinical Indicators/Treatments On admit BUN 39/Creatinine 1.72 On 04/21/21: BUN 42/Creatinine 1.64 Received diuretic for suspected Acute CHF, no improvement after diuresis CDS: Mily Pierce RN Contact Number: [phone] Please Review the information above and exercise your independent professional judgment in responding to the query. If you concur, pleas document in the PROGRESS NOTES and DISCHARGE SUMMARY. If you do not agree with the query, please document in the query above. THIS QUERY IS PART OF THE PERMANENT MEDICAL RECORD
[2021-06-12] MEDS: Furosemide 200 MG in 0.9 % Sodium Chloride 80 ML IVCONT (10:25)
--- NOTE | 2021-06-12 10:28 | P.CDIC_ITS ---
CDI Concurrent Query Service Date: 06/12/21 Documentation Clarification: Please clarify if you are treating a proba ble/suspected/likely or confirmed: BMI < 19 BMI >= 40 ? Underweight ? Weight loss ? Cachexia ? Anorexia ? Overweight ? Obesity: o?? Due to excess calories o?? Drug induced o?? Due to other cause ? Severe or Morbid Obesity o?? With alveolar hypoventilation (Obesity hypoventilation syndrome) o?? Without alveolar hypoventilation ? BMI is not significant ? Other ? Unable to determine Provider Response: Morbid Obesity PLEASE DO NOT DELETE/MODIFY EXISTING CONTENT Additional information is needed in order to code to the highest accuracy and appropriate Severity of Illness (SOI). Please clarify the information noted below in your progress notes and discharge summary. Risk Factors/Clinical Indicators/Treatments HT 5'2 WT 125 kg BMI 50.4 CDS: Mily Pierce RN Contact Number: [phone] Please Review the information above and exercise your independent professional judgment in responding to the query. If you concur, pleas document in the PROGRESS NOTES and DISCHARGE SUMMARY. If you do not agree with the query, please document in the query above. THIS QUERY IS PART OF THE PERMANENT MEDICAL RECORD
[2021-06-12 11:31] LABS: Glucose, Whole Blood 179 mg/dL (60-115)
[2021-06-12] MEDS: Insulin Lispro 100 UNIT/ML 3 ML VIAL SUBCUT ×3 (11:53→21:23)
--- NOTE | 2021-06-12 12:10 | HO.PM.IMPN ---
Subjective Subjective Date of Service: 06/12/21 Interval History: mild improvement ENT Ears, Nose, Mouth, and Throat: Reports system reviewed and no additional complaints, except as documented Cardiovascular Cardiovascular: Reports no additional cardiovascular complaints Physical Exam Vital Signs: Vital Signs: Last Vital Signs Temp 96.2 F L 06/12/21 11:34 Pulse 68 06/12/21 11:34 Resp 20 06/12/21 11:34 BP 127/63 06/12/21 11:34 Pulse Ox 95 06/12/21 11:34 Oxygen Flow Rate 5 06/09/21 15:27 Body Mass Index 50.3 General: AO X 3, no acute distress Resp:? Crackles, R>L CVS: S1,S2,RRR, murmur, 3+ edema GI: soft, non tender, non distended Neuro:? motor grossly intact Psych: appropriate affect Objective Data Current Medications Generic Name Dose Route Start Last Admin Trade Name Freq PRN Reason Stop Dose Admin Acetaminophen 650 mg 06/12/21 01:04 Acetaminophen 325 Mg Tablet PO Q6H PRN Pain, Mild (Pain Scale 1-3) Amlodipine Besylate 10 mg 06/10/21 09:00 06/12/21 09:02 Amlodipine Besylate 10 Mg Tablet PO 10 mg DAILY [facility]RIE Administration Protocol Ascorbic Acid 250 mg 06/10/21 09:00 06/12/21 09:02 Ascorbic Acid 250 Mg Tablet PO 250 mg DAILY [facility] Administration Atorvastatin Calcium 80 mg 06/10/21 09:00 06/12/21 09:01 Atorvastatin Calcium 80 Mg Tablet PO 80 mg DAILY [facility] Administration Benzocaine 1 lozenge 06/12/21 01:04 Throat Lozenge, Medicated Lozenge MUCOUS MEM Q2H PRN Sore Throat Carvedilol 3.125 mg 06/09/21 21:00 06/12/21 09:02 Carvedilol 3.125 Mg Tablet PO 3.125 mg BID [facility]OR[facility] Administration Protocol Dextrose 25 gm 06/09/21 16:17 Dextrose 50 % 25 Gm/50 Ml Vial IVPUSH Q15M PRN per Hypoglycemia Standing Ord. Protocol Ferrous Sulfate 324 mg 06/10/21 09:00 06/12/21 09:01 Ferrous Sulfate 324 Mg Tablet.Dr PO 324 mg DAILY [facility] Administration Fluoxetine HCl 20 mg 06/10/21 09:00 06/12/21 09:02 Fluoxetine Hcl 20 Mg Capsule PO 20 mg DAILY [facility] Administration Glucose 15 gm 06/09/21 16:17 Glucose Gel 15 Gm Gel..Gram. PO Q15M PRN per Hypoglycemia Standing Ord. Protocol Ceftriaxone Sodium 1 gm/ 50 mls @ 100 mls/hr 06/10/21 09:30 06/12/21 10:32 Sodium Chloride IV Infused Q24H [facility] Infusion Azithromycin 500 mg/ Sodium 250 mls @ 125 mls/hr 06/10/21 12:00 06/11/21 15:14 Chloride IV Infused Q24H [facility] Infusion Furosemide 200 mg/ Sodium 100 mls @ 2.5 mls/hr 06/12/21 09:15 06/12/21 10:25 Chloride IVCONT 5 mg/hr .Q24H LORRIE 2.5 mls/hr Administration 5 MG/HR Insulin Glargine 50 unit 06/10/21 21:00 06/11/21 21:48 Insulin Glargine,Hum.Rec.Anlog 100 Unit/Ml 10 Ml Vial SUBCUT Not Given BEDTIME [facility] Insulin Human Lispro 0 unit 06/09/21 16:30 06/12/21 11:53 Insulin Lispro 100 Unit/Ml 3 Ml Vial SUBCUT 2 unit QIDACHS [facility] Administration Protocol Loratadine 10 mg 06/10/21 09:00 06/12/21 09:02 Loratadine 10 Mg Tablet PO 10 mg DAILY [facility] Administration Multivitamins/Minerals 1 tab 06/10/21 09:00 06/12/21 09:02 Multivitamin With Minerals Tablet PO 1 tab DAILY [facility] Administration Pharmacy Consult 1 each 06/09/21 15:31 Consult Rx Perform Med Rec MISCELLANE ONCE PRN Consult order Rivaroxaban 10 mg 06/10/21 09:00 06/12/21 09:01 Rivaroxaban 10 Mg Tablet PO 10 mg DAILY [facility] Administration Sodium Chloride 3 ml 06/10/21 00:00 06/12/21 09:02 0.9 % Sodium Chloride Flush 3 Ml Syringe IVFLUSH 3 ml QSHIFT [facility] Administration Vitamin D 25 mcg 06/10/21 09:00 06/12/21 09:01 Cholecalciferol (Vitamin D3) 25 Mcg Tablet PO 25 mcg DAILY [facility] Administration Labs CBC & Chem 7: 06/12/21 04:29 06/12/21 04:29 Labs: Laboratory Results - last 24 hr 06/09/21 06/10/21 06/11/21 14:15 05:42 15:59 Hgb 8.9 L 8.3 L MCV MCH MCHC RDW Plt Count MPV Absolute Nucleated RBC Nucleated RBC % (auto) Anion Gap Estim Creat Clear Calc Estimated GFR POC Glucose 155 H Fasting Glucose Calcium 06/11/21 06/12/21 06/12/21 20:20 04:29 04:29 Hgb MCV 89.8 MCH 28.6 MCHC 31.8 RDW 14.9 Plt Count 357 MPV 9.7 Absolute Nucleated RBC 0.000 Nucleated RBC % (auto) 0.0 Anion Gap 13 Estim Creat Clear Calc 36.0 Estimated GFR 28 POC Glucose 166 H Fasting Glucose 171 H D Calcium 8.1 L 06/12/21 06/12/21 07:19 11:25 Hgb MCV MCH MCHC RDW Plt Count MPV Absolute Nucleated RBC Nucleated RBC % (auto) Anion Gap Estim Creat Clear Calc Estimated GFR POC Glucose 141 H 179 H Fasting Glucose Calcium Microbiology Microbiology Results: Microbiology 06/09/21 14:15 Blood Culture - Preliminary Blood - Venous Prelim: GPC Gram Stain only 06/09/21 14:15 Blood Culture - Final Blood - Venous Coag negative Staphylococcus Assessment and Plan (1) Congestive heart failure: Status: Acute Assessment and Plan: ?66F presented with sob Acute hypoxic respiratory failure multifactorial acute on chronic diastolic chf - will retry diuresis, lasix 5mg/hr, repeat imaging tomorrow, monitor lytes atypical pneumonia - RVP-negative, follow up urine legionella, urine strep, ed rocephin and azithromycin follow up blood cultures - coag negative staph - contaminant CKD III monitor morbid obesity weight loss Diabetes Basal bolus insulin Hypertension Amlodipine Hyperlipidemia Statin Quality Stroke Does the patient have a stroke diagnosis?: No VTE Prior VTE?: No VTE Risk Level:: Medical - moderate - high VTE Device Contraindication: Treatment Not Indicated VTE Drug Contraindication: N/A - Med Ordered
[2021-06-12] MEDS: Azithromycin 500 MG TABLET PO (12:21)
--- NOTE | 2021-06-12 12:56 | MHC.CLN ---
NUTRITION PATIENT RECEIVING IV FUROSEMIDE. ADDED 2 GRAM SODIUM TO DIET ORDER. DIET=DIABETIC 1800 KCAL, 2 GRAM SODIUM.
--- NOTE | 2021-06-12 14:42 | MHC.CM.PN ---
pt on Lasix drip dc expected in 1 to 2 days
--- NOTE | 2021-06-12 14:58 | P.PNCA_ITS ---
Subjective Subjective Date of Service: 06/12/21 Interval history: Saying she is feeling better. Chest x-ray showing worsening right-sided infiltrates. Physical Exam Vital Signs: Last Vital Signs Temp 96.2 F L 06/12/21 11:34 Pulse 68 06/12/21 11:34 Resp 20 06/12/21 11:34 BP 127/63 06/12/21 11:34 Pulse Ox 95 06/12/21 11:34 Oxygen Flow Rate 5 06/09/21 15:27 Body Mass Index 50.3 GENERAL APPEARANCE: in no acute distress, pleasant. NECK: no carotid bruit, + jugular venous distention. SKIN: no suspicious lesions, warm and dry. HEART: no murmurs, regular rate and rhythm. LUNGS: Crackles both lungs. ABDOMEN: soft, nontender. EXTREMITIES: Mild edema. PERIPHERAL PULSES: equal. NEUROLOGIC: No gross deficits, AAO X 3 Results Labs and Meds Result diagrams: 06/12/21 04:29 06/12/21 04:29 Lab results: Laboratory Results - last 24 hr 06/11/21 06/11/21 06/12/21 15:59 20:20 04:29 WBC 11.0 H RBC 2.66 L Hgb 7.6 L Hct 23.9 L MCV 89.8 MCH 28.6 MCHC 31.8 RDW 14.9 Plt Count 357 MPV 9.7 Absolute Nucleated RBC 0.000 Nucleated RBC % (auto) 0.0 Sodium Potassium Chloride Carbon Dioxide Anion Gap BUN Creatinine Estim Creat Clear Calc Estimated GFR POC Glucose 155 H 166 H Fasting Glucose Calcium 06/12/21 06/12/21 06/12/21 04:29 07:19 11:25 WBC RBC Hgb Hct MCV MCH MCHC RDW Plt Count MPV Absolute Nucleated RBC Nucleated RBC % (auto) Sodium 141 Potassium 5.3 H D Chloride 109 H Carbon Dioxide 24 Anion Gap 13 BUN 46 H Creatinine 1.82 H Estim Creat Clear Calc 36.0 Estimated GFR 28 POC Glucose 141 H 179 H Fasting Glucose 171 H D Calcium 8.1 L Progress Note: A&P Assessment and plan (1) Acute respiratory failure with hypoxia: Status: Acute (2) Congestive heart failure: Status: Acute (3) Pneumonia: Status: Acute Assessment and Plan: 66-year-old female who presented for acute hypoxic respiratory failure. She was noticed to have atypical pneumonia on x-ray. Repeat x-ray is showing worsening infiltrates right lung. There was also some concern for congestive heart failure. She was given diuretics but creatinine worsen and diuretics were stopped. By exam she looks mildly overloaded. Chest x-ray is more concerning for pneumonia and may be ARDS. I think we diurese her gently. Interestingly she is feeling better with antibiotics already which is a good sign. Her hemoglobin is dropping and she is anemic. She may need blood transfusion and further workup for this. Blood pressure control is good. Thank you for allowing me to participate in the care of your patient. Please feel free to contact me if you have any questions. Fall Risk Details Current Medications: Current Medications Generic Name Dose Route Start Last Admin Trade Name Freq PRN Reason Stop Dose Admin Acetaminophen 650 mg 06/12/21 01:04 Acetaminophen 325 Mg Tablet PO Q6H PRN Pain, Mild (Pain Scale 1-3) Amlodipine Besylate 10 mg 06/10/21 09:00 06/12/21 09:02 Amlodipine Besylate 10 Mg Tablet PO 10 mg DAILY [facility] Administration Protocol Ascorbic Acid 250 mg 06/10/21 09:00 06/12/21 09:02 Ascorbic Acid 250 Mg Tablet PO 250 mg DAILY [facility] Administration Atorvastatin Calcium 80 mg 06/10/21 09:00 06/12/21 09:01 Atorvastatin Calcium 80 Mg Tablet PO 80 mg DAILY [facility] Administration Azithromycin 500 mg 06/12/21 12:15 06/12/21 12:21 Azithromycin 500 Mg Tablet PO 500 mg Q24H [facility] Administration Benzocaine 1 lozenge 06/12/21 01:04 Throat Lozenge, Medicated Lozenge MUCOUS MEM Q2H PRN Sore Throat Carvedilol 3.125 mg 06/09/21 21:00 06/12/21 09:02 Carvedilol 3.125 Mg Tablet PO 3.125 mg BID [facility] Administration Protocol Dextrose 25 gm 06/09/21 16:17 Dextrose 50 % 25 Gm/50 Ml Vial IVPUSH Q15M PRN per Hypoglycemia Standing Ord. Protocol Ferrous Sulfate 324 mg 06/10/21 09:00 06/12/21 09:01 Ferrous Sulfate 324 Mg Tablet. PO 324 mg DAILY [facility] Administration Fluoxetine HCl 20 mg 06/10/21 09:00 06/12/21 09:02 Fluoxetine Hcl 20 Mg Capsule PO 20 mg DAILY [facility] Administration Furosemide 40 mg 06/12/21 16:00 Furosemide 40 Mg/4 Ml Vial IVPUSH 06/12/21 16:01 ONCE ONE Protocol Glucose 15 gm 06/09/21 16:17 Glucose Gel 15 Gm Gel..Gram. PO Q15M PRN per Hypoglycemia Standing Ord. Protocol Ceftriaxone Sodium 1 gm/ 50 mls @ 100 mls/hr 06/10/21 09:30 06/12/21 10:32 Sodium Chloride IV Infused Q24H [facility] Infusion Insulin Glargine 50 unit 06/10/21 21:00 06/11/21 21:48 Insulin Glargine,Hum.Rec.Anlog 100 Unit/Ml 10 Ml Vial SUBCUT Not Given BEDTIME [facility] Insulin Human Lispro 0 unit 06/09/21 16:30 06/12/21 11:53 Insulin Lispro 100 Unit/Ml 3 Ml Vial SUBCUT 2 unit QIDACHS [facility] Administration Protocol Loratadine 10 mg 06/10/21 09:00 06/12/21 09:02 Loratadine 10 Mg Tablet PO 10 mg DAILY [facility] Administration Multivitamins/Minerals 1 tab 06/10/21 09:00 06/12/21 09:02 Multivitamin With Minerals Tablet PO 1 tab DAILY [facility] Administration Pharmacy Consult 1 each 06/09/21 15:31 Consult Rx Perform Med Rec MISCELLANE ONCE PRN Consult order Rivaroxaban 10 mg 06/10/21 09:00 06/12/21 09:01 Rivaroxaban 10 Mg Tablet PO 10 mg DAILY [facility] Administration Sodium Chloride 3 ml 06/10/21 00:00 06/12/21 09:02 0.9 % Sodium Chloride Flush 3 Ml Syringe IVFLUSH 3 ml QSHIFT [facility] Administration Vitamin D 25 mcg 06/10/21 09:00 06/12/21 09:01 Cholecalciferol (Vitamin D3) 25 Mcg Tablet PO 25 mcg DAILY [facility] Administration Time Spent With Patient Time: Total time spent is greater than 50% in coordination of care (as documented) at patient's floor/unit and/or counseling patient: Time with patient: 25 - 35 minutes Progress Note: Quality Stroke Does the patient have a stroke diagnosis?: No Procedures Date of Service Date of Service: 06/12/21
--- NOTE | 2021-06-12 15:05 | P.CONPL_ITS ---
History of Present Illness History of Present Illness Consult date: 06/12/21 Reason for consult: hypoxemia and abnormal CXR/CT Chief complaint: chf Narrative: 66-year-old lady lifetime nonsmoker, with underlying history of obesity admitted on 06/09/2021 with progressive dyspnea over several months. Patient states that after her sister has diet in December she started to gain more weight. Recently over the last few months she started developing worse lower extremity edema. She has been treated once by her primary care provider with a 5 day course of Lasix for with significant improvement in lower extremity edema and dyspnea. However, her symptoms have recurred after that brief treatment. On initial ER evaluation she was noted to be hypoxemic and requiring supplemental oxygen. She has been started on empiric antibiotics and diuretics and admitted to general medical prater. Patient states that after her water weight started to decrease her dyspnea also has started to improved. She denies productive cough or fevers. Patient states that her lower extremity edema is improving slowly. Review of Systems Constitutional: Constitutional: Denies daytime sleepiness, Denies excessive sweating, Reports fatigue, Denies fever(s), Denies lethargy, Denies malaise, Denies night sweats, Denies snoring and Denies weight loss Eyes: Eyes: Denies blurry vision and Denies itchy eyes ENT: Denies nasal congestion, Denies post nasal drip, Denies sinus pain, Denies sinus pressure and Denies other ( Thrush) Cardiovascular: Cardiovascular: Denies chest pain, Reports pedal edema, Reports dyspnea, Reports orthopnea and Denies paroxysmal nocturnal dyspnea Respiratory: Respiratory: Denies cough, Denies hemoptysis, Denies excessive phlegm production, Reports dyspnea, Denies snoring and Denies wheezing Gastrointestinal: Gastrointestinal: Denies abdominal pain and Denies heartburn Musculoskeletal: Musculoskeletal: Denies myalgias, Denies arthralgias and Denies joint swelling Integumentary/Breasts: Skin/Breast: Denies rash Neurologic: Denies memory loss and Denies seizure-like activity Psychiatric: Psychiatric: Denies abnormal sleep pattern, Denies anxiety and Denies memory loss Endocrine: Endocrine: Denies excessive sweating, Reports fatigue and Denies heat intolerance Hematologic/Lymphatic: Hematologic/Lymphatic: Denies easy bruising Allergic/Immunologic: Allergic/Immunologic: Denies itchy eyes, Denies seasonal rhinorrhea and Denies wheezing PMFSH Past Medical History Medical History Bilateral lower extremity edema Diabetes type 2, uncontrolled High cholesterol Hypertension, essential Family History Family History Father Stroke Mother Stroke Hypertension Diabetes Maternal Grandmother Diabetes Hypertension Stroke Sister Diabetes Breast cancer Son Bipolar 1 disorder Overweight Family history: reviewed and not pertinent Surgical History Surgical History History of D&C History of surgery Social History Social History Household Members: Family Housing: House Do you presently have visiting nurse or other home services: No Alcohol intake: never Patient Tobacco Use Status: Never used Tobacco Smoked in Last 30 Days: No e-Cigarette/Vaping Use: Never Used Use of substances other than those prescribed or required for medical reasons: No Currently Displaying Signs/Symptoms of Drug Intoxication Withdrawal: No Have you been hit, kicked, punched, or otherwise hurt by someone within the past year? If so, by whom?: No Do you feel safe in your current relationship?: Yes Is there a partner from a previous relationship who is making you feel unsafe now?: No Are you made to feel afraid or neglected: No Advance Directives: Yes Advance Directives Information Provided: Yes Advance Directives on File: No Advance Directives Date on File: 06/09/21 Do you have thoughts of harming others: None Do you have a plan to hurt others: No Plan Recently lost weight without trying: No Nutrition Risks: No Nutritional Risk Patient : No : No Poor oral hygiene: No service: No Current occupational status: employed Meds Allergies Allergy/AdvReac Type Severity Reaction Status Date / Time penicillin V Allergy Severe joint Verified 06/09/21 11:28 swelling and rash Active Medications: Current Medications Generic Name Dose Route Start Last Admin Trade Name Freq PRN Reason Stop Dose Admin Acetaminophen 650 mg 06/12/21 01:04 Acetaminophen 325 Mg Tablet PO Q6H PRN Pain, Mild (Pain Scale 1-3) Amlodipine Besylate 10 mg 06/10/21 09:00 06/12/21 09:02 Amlodipine Besylate 10 Mg Tablet PO 10 mg DAILY LORRIE Administration Protocol Ascorbic Acid 250 mg 06/10/21 09:00 06/12/21 09:02 Ascorbic Acid 250 Mg Tablet PO 250 mg DAILY LORRIE Administration Atorvastatin Calcium 80 mg 06/10/21 09:00 06/12/21 09:01 Atorvastatin Calcium 80 Mg Tablet PO 80 mg DAILY LORRIE Administration Azithromycin 500 mg 06/12/21 12:15 06/12/21 12:21 Azithromycin 500 Mg Tablet PO 500 mg Q24H LORRIE Administration Benzocaine 1 lozenge 06/12/21 01:04 Throat Lozenge, Medicated Lozenge MUCOUS MEM Q2H PRN Sore Throat Carvedilol 3.125 mg 06/09/21 21:00 06/12/21 09:02 Carvedilol 3.125 Mg Tablet PO 3.125 mg BID LORRIE Administration Protocol Dextrose 25 gm 06/09/21 16:17 Dextrose 50 % 25 Gm/50 Ml Vial IVPUSH Q15M PRN per Hypoglycemia Standing Ord. Protocol Ferrous Sulfate 324 mg 06/10/21 09:00 06/12/21 09:01 Ferrous Sulfate 324 Mg Tablet. PO 324 mg DAILY LORRIE Administration Fluoxetine HCl 20 mg 06/10/21 09:00 06/12/21 09:02 Fluoxetine Hcl 20 Mg Capsule PO 20 mg DAILY [facility]RIE Administration Furosemide 40 mg 06/12/21 16:00 Furosemide 40 Mg/4 Ml Vial IVPUSH 06/12/21 16:01 ONCE ONE Protocol Glucose 15 gm 06/09/21 16:17 Glucose Gel 15 Gm Gel..Gram. PO Q15M PRN per Hypoglycemia Standing Ord. Protocol Ceftriaxone Sodium 1 gm/ 50 mls @ 100 mls/hr 06/10/21 09:30 06/12/21 10:32 Sodium Chloride IV Infused Q24H COUNT INCLUDES THE [facility] Infusion Insulin Glargine 50 unit 06/10/21 21:00 06/11/21 21:48 Insulin Glargine,Hum.Rec.Anlog 100 Unit/Ml 10 Ml Vial SUBCUT Not Given BEDTIME COUNT INCLUDES THE [facility] Insulin Human Lispro 0 unit 06/09/21 16:30 06/12/21 11:53 Insulin Lispro 100 Unit/Ml 3 Ml Vial SUBCUT 2 unit QIDACHS LORRIE Administration Protocol Loratadine 10 mg 06/10/21 09:00 06/12/21 09:02 Loratadine 10 Mg Tablet PO 10 mg DAILY [facility]RIE Administration Multivitamins/Minerals 1 tab 06/10/21 09:00 06/12/21 09:02 Multivitamin With Minerals Tablet PO 1 tab DAILY COUNT INCLUDES THE [facility] Administration Pharmacy Consult 1 each 06/09/21 15:31 Consult Rx Perform Med Rec MISCELLANE ONCE PRN Consult order Rivaroxaban 10 mg 06/10/21 09:00 06/12/21 09:01 Rivaroxaban 10 Mg Tablet PO 10 mg DAILY LORRIE Administration Sodium Chloride 3 ml 06/10/21 00:00 06/12/21 09:02 0.9 % Sodium Chloride Flush 3 Ml Syringe IVFLUSH 3 ml QSHIFT COUNT INCLUDES THE [facility] Administration Vitamin D 25 mcg 06/10/21 09:00 06/12/21 09:01 Cholecalciferol (Vitamin D3) 25 Mcg Tablet PO 25 mcg DAILY LORRIE Administration Home Medications Medication Instructions Recorded Confirmed Last Taken Type cholecalciferol (vitamin D3) 25 25 mcg PO DAILY 08/23/20 06/09/21 06/09/21 History mcg (1,000 unit) capsule ibuprofen 800 mg tablet 800 mg PO TID PRN 08/23/20 06/09/21 06/09/21 History insulin lispro 100 unit/mL See Protocol SUBCUT QIDACHS 08/23/20 06/09/21 06/09/21 History subcutaneous pen ascorbic acid (vitamin C) 500 mg 250 mg PO DAILY 09/22/20 06/09/21 06/09/21 History tablet ferrous sulfate 325 mg (65 mg 325 mg PO DAILY 09/22/20 06/09/21 06/09/21 History iron) tablet (FeroSul) fexofenadine 180 mg tablet 180 mg PO DAILY 09/22/20 06/09/21 06/09/21 History kcsrifaueeka-Pv-kiqb-minerals 1 tab PO DAILY 09/22/20 06/09/21 06/09/21 History (Multiple Vitamin, Womens) Physical Exam Vital Signs: Vital Signs: Last Vital Signs Temp 96.2 F L 06/12/21 11:34 Pulse 68 06/12/21 11:34 Resp 20 06/12/21 11:34 BP 127/63 06/12/21 11:34 Pulse Ox 95 06/12/21 11:34 Oxygen Flow Rate 5 06/09/21 15:27 Body Mass Index 50.3 Const: General: no acute distress, alert and awake Nutritional Appearance: obese Eyes: Sclerae: sclerae normal EOM: EOMs intact bilaterally Neck: Neck: Yes no lymphadenopathy, Yes trachea midline and Yes supple Resp: Effort & Inspection: normal respiratory effort and no respiratory distress Auscultation: clear to auscultation bilaterally Cardio: Rate: regular rate Rhythm: regular rhythm Heart sounds: no gallops, no murmurs and no rubs GI: Palpation (GI): Soft to palpation and Other GI palpation findings present ( Nontender) Auscultation: normal bowel sounds Extrem: General: No clubbing, No cyanosis and Yes pedal edema (1+ bilateral) Results Laboratory Findings CBC and BMP: 06/12/21 04:29 06/12/21 04:29 Abnormal lab findings: Abnormal Labs 06/09/21 06/09/21 06/09/21 14:15 14:15 14:15 WBC 13.7 H RBC 3.15 L Hgb 8.9 L Hct 28.6 L MCHC Immature Gran % (Auto) 0.7 H Neut % (Auto) 86.3 H Lymph % (Auto) 7.2 L Lymph # (Auto) 1.0 L Abs Immat Gran (auto) 0.09 H Absolute Neuts (auto) 11.8 H ESR Potassium 5.2 H Chloride 111 H Carbon Dioxide 19 L BUN 39 H Creatinine 1.72 H POC Glucose Random Glucose 163 H Fasting Glucose Calcium Alkaline Phosphatase 132 H D B-Natriuretic Peptide 173 H Total Protein 6.4 L 06/09/21 06/09/21 06/10/21 18:21 21:12 05:42 WBC 13.2 H RBC 3.01 L Hgb 8.3 L Hct 27.0 L MCHC 30.7 L Immature Gran % (Auto) Neut % (Auto) Lymph % (Auto) Lymph # (Auto) Abs Immat Gran (auto) Absolute Neuts (auto) ESR Potassium Chloride Carbon Dioxide BUN Creatinine POC Glucose 146 H 143 H Random Glucose Fasting Glucose Calcium Alkaline Phosphatase B-Natriuretic Peptide Total Protein 06/10/21 06/10/21 06/11/21 05:42 07:11 05:44 WBC RBC Hgb Hct MCHC Immature Gran % (Auto) Neut % (Auto) Lymph % (Auto) Lymph # (Auto) Abs Immat Gran (auto) Absolute Neuts (auto) ESR 98 H Potassium Chloride 111 H Carbon Dioxide BUN 40 H Creatinine 1.81 H POC Glucose 57 L* Random Glucose Fasting Glucose Calcium Alkaline Phosphatase B-Natriuretic Peptide Total Protein 06/11/21 06/11/21 06/11/21 05:44 05:44 15:59 WBC 11.3 H RBC 3.06 L Hgb 8.4 L Hct 27.2 L MCHC 30.9 L Immature Gran % (Auto) Neut % (Auto) Lymph % (Auto) Lymph # (Auto) Abs Immat Gran (auto) Absolute Neuts (auto) ESR Potassium Chloride Carbon Dioxide BUN 42 H Creatinine 1.82 H POC Glucose 155 H Random Glucose Fasting Glucose Calcium 8.3 L Alkaline Phosphatase B-Natriuretic Peptide Total Protein 06/11/21 06/12/21 06/12/21 20:20 04:29 04:29 WBC 11.0 H RBC 2.66 L Hgb 7.6 L Hct 23.9 L MCHC Immature Gran % (Auto) Neut % (Auto) Lymph % (Auto) Lymph # (Auto) Abs Immat Gran (auto) Absolute Neuts (auto) ESR Potassium 5.3 H D Chloride 109 H Carbon Dioxide BUN 46 H Creatinine 1.82 H POC Glucose 166 H Random Glucose Fasting Glucose 171 H D Calcium 8.1 L Alkaline Phosphatase B-Natriuretic Peptide Total Protein 06/12/21 06/12/21 07:19 11:25 WBC RBC Hgb Hct MCHC Immature Gran % (Auto) Neut % (Auto) Lymph % (Auto) Lymph # (Auto) Abs Immat Gran (auto) Absolute Neuts (auto) ESR Potassium Chloride Carbon Dioxide BUN Creatinine POC Glucose 141 H 179 H Random Glucose Fasting Glucose Calcium Alkaline Phosphatase B-Natriuretic Peptide Total Protein Microbiology: Microbiology 06/09/21 14:15 Blood - Venous Blood Culture - Preliminary Coag negative Staphylococcus 06/09/21 14:15 Blood - Venous Blood Culture - Preliminary Prelim: GPC Gram Stain only Assessment and Plan (1) Acute respiratory failure with hypoxia: Status: Acute Impression: 66-year-old lady admitted with acute hypoxic respiratory failure symptomatic with progressive dyspnea, orthopnea, and worsening lower extremity edema now requiring supplemental oxygen to maintain normoxemia with likely etiology being acute exacerbation of underlying chronic diastolic congestive heart failure. Patient is improving with diuresis. Her CT chest findings of multifocal patchy ground-glass infiltrates a most likely secondary underlying congestive heart failure, and less likely pneumonia or an inflammat ory process. Recommendation: At this time agree with continuation of diuresis and discontinuation of empiric antibiotics. (2) Congestive heart failure: Qualifiers: Heart failure chronicity: unspecified Heart failure type: unspecified Qualified Code(s): I50.9 - Heart failure, unspecified Status: Acute Procedures Date of Service Date of Service: 06/12/21
[2021-06-12 16:13] LABS: Glucose, Whole Blood 198 mg/dL (60-115)
[2021-06-12] MEDS: Furosemide 40 MG/4 ML VIAL IVPUSH (16:54)
[2021-06-12 19:07] LABS: Anti Nuclear Antibody Pattern Nuclear, Homogeneous; Anti Nuclear Antibody Screen POSITIVE (NEGATIVE); Anti Nuclear Antibody Titer 1:40 titer
[2021-06-12 20:46] LABS: Glucose, Whole Blood 227 mg/dL (60-115)
[2021-06-12] MEDS: Insulin Glargine,Hum.rec.anlog 100 UNIT/ML 10 ML VIAL 50 UNIT SUBCUT (21:22)
[2021-06-13] VITALS (10 sets, daily range): BP systolic 119–152; BP diastolic 55–68; PULSE 71–77; RESP 16–20; TEMP 35.9–37.1; O2SAT 93–98
[2021-06-13 06:45] LABS: Hematocrit 25.6 % (37-47); Hemoglobin 8.1 g/dl (12.0-16.0); Mean Corpuscular HGB Conc 31.6 g/dl (31.0-35.0); Mean Corpuscular Hemoglobin 28.2 pg (27.0-33.0); Mean Corpuscular Volume 89.2 fL (80-98); Mean Platelet Volume 9.9 fL (9.4-12.3); Platelet Count 409 X10*3/uL (160-400); Red Blood Count 2.87 X10*6/uL (4.20-5.50); Red Cell Distribution Width 14.6 % (11.0-16.0); White Blood Count 10.2 X10*3/uL (4.8-10.8)
[2021-06-13 07:05] LABS: Glucose, Whole Blood 150 mg/dL (60-115)
[2021-06-13 07:07] LABS: B Type Natriuretic Peptide 119 pg/mL (<100)
[2021-06-13 07:36] LABS: Alanine Aminotransferase 25 U/L (0-31); Albumin Level 3.2 g/dL (3.5-5.0); Alkaline Phosphatase 119 U/L (39-117); Anion Gap 16 (12-20); Aspartate Amino Transferase 18 U/L (5-31); Bilirubin Direct 0.2 mg/dL (0.0-0.5); Bilirubin Total 0.4 mg/dL (0.0-1.0); Blood Urea Nitrogen 48 mg/dL (9-16); Calcium 8.4 mg/dL (8.4-10.2); Carbon Dioxide 24 mmol/L (22-29); Chloride 107 mmol/L (96-108); Creatinine Clr Calc Pharmacy 38.8; Estimated Glomerular Filt Rate 28; Glucose Fasting 165 mg/dL (60-99); Iron 22 mcg/dL (30-160); Lactate Dehydrogenase 285 U/L (122-220); Magnesium 2.1 mg/dL (1.6-2.6); Potassium 5.5 mmol/L (3.3-5.1); Sodium 141 mmol/L (135-145); Total Protein 5.7 g/dL (6.5-8.0)
[2021-06-13] MEDS: cefTRIAXone sodium 1 GM in 0.9 % Sodium Chloride 50 ML IV (10:12)
[2021-06-13] MEDS: amLODIPine Besylate 10 MG TABLET PO (10:12)
[2021-06-13] MEDS: Cholecalciferol (Vitamin D3) 25 MCG TABLET PO (10:12)
[2021-06-13] MEDS: Loratadine 10 MG TABLET PO (10:13)
[2021-06-13] MEDS: Ascorbic Acid 250 MG TABLET PO (10:13)
[2021-06-13] MEDS: Atorvastatin Calcium 80 MG TABLET PO (10:13)
[2021-06-13] MEDS: Rivaroxaban 10 MG TABLET PO (10:13)
[2021-06-13] MEDS: carvediloL 3.125 MG TABLET PO ×2 (10:13→21:57)
[2021-06-13] MEDS: Ferrous Sulfate 324 MG TABLET.DR PO (10:13)
[2021-06-13] MEDS: FLUoxetine HCl 20 MG CAPSULE PO (10:13)
[2021-06-13] MEDS: 0.9 % Sodium Chloride Flush 3 ML SYRINGE IVFLUSH ×3 (10:20→21:58)
--- NOTE | 2021-06-13 10:35 | P.PNIM_ITS ---
Subjective Subjective Date of Service: 06/13/21 Interval History: feeling better, but still sob on exertion and desatting to 70s Cardiovascular Cardiovascular: Reports no additional cardiovascular complaints Respiratory Respiratory: Reports no additional respiratory complaints Physical Exam Vital Signs: Vital Signs: Last Vital Signs Temp 96.6 F L 06/13/21 07:27 Pulse 74 06/13/21 10:13 Resp 20 06/13/21 07:27 BP 142/68 H 06/13/21 10:13 Pulse Ox 95 06/13/21 07:27 Oxygen Flow Rate 5 06/09/21 15:27 Body Mass Index 50.3 General: AO X 3, no acute distress Resp:? Crackles, R>L CVS: S1,S2,RRR, murmur, 3+ edema GI: soft, non tender, non distended Neuro:? motor grossly intact Psych: appropriate affect Objective Data Current Medications Generic Name Dose Route Start Last Admin Trade Name Freq PRN Reason Stop Dose Admin Acetaminophen 650 mg 06/12/21 01:04 Acetaminophen 325 Mg Tablet PO Q6H PRN Pain, Mild (Pain Scale 1-3) Amlodipine Besylate 10 mg 06/10/21 09:00 06/13/21 10:12 Amlodipine Besylate 10 Mg Tablet PO 10 mg DAILY LORRIE Administration Protocol Ascorbic Acid 250 mg 06/10/21 09:00 06/13/21 10:13 Ascorbic Acid 250 Mg Tablet PO 250 mg DAILY L[facility]RIE Administration Atorvastatin Calcium 80 mg 06/10/21 09:00 06/13/21 10:13 Atorvastatin Calcium 80 Mg Tablet PO 80 mg DAILY LORRIE Administration Azithromycin 500 mg 06/12/21 12:15 06/12/21 12:21 Azithromycin 500 Mg Tablet PO 500 mg Q24H LORRIE Administration Benzocaine 1 lozenge 06/12/21 01:04 Throat Lozenge, Medicated Lozenge MUCOUS MEM Q2H PRN Sore Throat Carvedilol 3.125 mg 06/09/21 21:00 06/13/21 10:13 Carvedilol 3.125 Mg Tablet PO 3.125 mg BID LORRIE Administration Protocol Dextrose 25 gm 06/09/21 16:17 Dextrose 50 % 25 Gm/50 Ml Vial IVPUSH Q15M PRN per Hypoglycemia Standing Ord. Protocol Ferrous Sulfate 324 mg 06/10/21 09:00 06/13/21 10:13 Ferrous Sulfate 324 Mg Tablet. PO 324 mg DAILY LORRIE Administration Fluoxetine HCl 20 mg 06/10/21 09:00 06/13/21 10:13 Fluoxetine Hcl 20 Mg Capsule PO 20 mg DAILY LORRIE Administration Furosemide 40 mg 06/13/21 09:30 Furosemide 40 Mg/4 Ml Vial IVPUSH BID@0900,1800 [facility] Protocol Glucose 15 gm 06/09/21 16:17 Glucose Gel 15 Gm Gel..Gram. PO Q15M PRN per Hypoglycemia Standing Ord. Protocol Ceftriaxone Sodium 1 gm/ 50 mls @ 100 mls/hr 06/10/21 09:30 06/13/21 10:12 Sodium Chloride IV 100 mls/hr Q24H LORRIE Administration Insulin Glargine 50 unit 06/10/21 21:00 06/12/21 21:22 Insulin Glargine,Hum.Rec.Anlog 100 Unit/Ml 10 Ml Vial SUBCUT 50 unit BEDTIME L[facility]RIE Administration Insulin Human Lispro 0 unit 06/09/21 16:30 06/13/21 07:21 Insulin Lispro 100 Unit/Ml 3 Ml Vial SUBCUT Not Given QIDACHS [facility] Protocol Loratadine 10 mg 06/10/21 09:00 06/13/21 10:13 Loratadine 10 Mg Tablet PO 10 mg DAILY [facility] Administration Multivitamins/Minerals 1 tab 06/10/21 09:00 06/13/21 10:13 Multivitamin With Minerals Tablet PO 1 tab DAILY [facility] Administration Pharmacy Consult 1 each 06/09/21 15:31 Consult Rx Perform Med Rec MISCELLANE ONCE PRN Consult order Rivaroxaban 10 mg 06/10/21 09:00 06/13/21 10:13 Rivaroxaban 10 Mg Tablet PO 10 mg DAILY [facility] Administration Sodium Chloride 3 ml 06/10/21 00:00 06/13/21 10:20 0.9 % Sodium Chloride Flush 3 Ml Syringe IVFLUSH 3 ml QSHIFT [facility] Administration Vitamin D 25 mcg 06/10/21 09:00 06/13/21 10:12 Cholecalciferol (Vitamin D3) 25 Mcg Tablet PO 25 mcg DAILY LORRIE Administration Labs CBC & Chem 7: 06/13/21 05:33 06/13/21 05:33 Labs: Laboratory Results - last 24 hr 06/11/21 06/12/21 06/12/21 05:44 11:25 16:06 MCV MCH MCHC RDW Plt Count MPV Absolute Nucleated RBC Nucleated RBC % (auto) Anion Gap Estim Creat Clear Calc Estimated GFR POC Glucose 179 H 198 H Fasting Glucose Calcium Magnesium Iron Total Bilirubin Direct Bilirubin AST ALT Alkaline Phosphatase Lactate Dehydrogenase B-Natriuretic Peptide Total Protein Albumin DIVYA Screen POSITIVE A DIVYA Titer 1:40 H DIVYA Titer 2 TNP DIVYA Titer 3 TNP DIVYA Pattern Nuclear, Homogeneous A DIVYA Pattern 2 TNP DIVYA Pattern 3 TNP 06/12/21 06/13/21 06/13/21 20:40 05:33 05:33 MCV 89.2 MCH 28.2 MCHC 31.6 RDW 14.6 Plt Count 409 H MPV 9.9 Absolute Nucleated RBC 0.000 Nucleated RBC % (auto) 0.0 Anion Gap 16 Estim Creat Clear Calc 38.8 Estimated GFR 28 POC Glucose 227 H Fasting Glucose 165 H Calcium 8.4 Magnesium 2.1 Iron 22 L Total Bilirubin 0.4 Direct Bilirubin 0.2 AST 18 ALT 25 Alkaline Phosphatase 119 H Lactate Dehydrogenase 285 H B-Natriuretic Peptide Total Protein 5.7 L Albumin 3.2 L DIVYA Screen DIVYA Titer DIVYA Titer 2 DIVYA Titer 3 DIVYA Pattern DIVYA Pattern 2 DIVYA Pattern 3 06/13/21 06/13/21 05:33 07:00 MCV MCH MCHC RDW Plt Count MPV Absolute Nucleated RBC Nucleated RBC % (auto) Anion Gap Estim Creat Clear Calc Estimated GFR POC Glucose 150 H Fasting Glucose Calcium Magnesium Iron Total Bilirubin Direct Bilirubin AST ALT Alkaline Phosphatase Lactate Dehydrogenase B-Natriuretic Peptide 119 H Total Protein Albumin DIVYA Screen DIVYA Titer DIVYA Titer 2 DIVYA Titer 3 DIVYA Pattern DIVYA Pattern 2 DIVYA Pattern 3 Microbiology Microbiology Results: Microbiology 06/09/21 14:15 Blood Culture - Preliminary Blood - Venous Coag negative Staphylococcus 06/09/21 14:15 Blood Culture - Preliminary Blood - Venous Prelim: GPC Gram Stain only Assessment and Plan (1) Congestive heart failure: Status: Acute Assessment and Plan: ?66F presented with sob Acute hypoxic respiratory failure multifactorial acute on chronic diastolic chf - continue lasix, monitor lytes atypical pneumonia - RVP-negative, follow up urine legionella, urine strep rocephin and azithromycin follow up blood cultures - coag negative staph - contaminant CKD III monitor morbid obesity weight loss Diabetes Basal bolus insulin Hypertension Amlodipine Hyperlipidemia Statin Quality Stroke Does the patient have a stroke diagnosis?: No VTE Prior VTE?: No VTE Risk Level:: Medical - moderate - high VTE Device Contraindication: Treatment Not Indicated VTE Drug Contraindication: N/A - Med Ordered
[2021-06-13 11:03] LABS: Glucose, Whole Blood 191 mg/dL (60-115)
--- NOTE | 2021-06-13 11:28 | P.PNCA_ITS ---
Subjective Subjective Date of Service: 06/13/21 <YELITZA Nicole - Last Filed: 06/13/21 12:30> 06/13/21 <Robles Mike MD - Last Filed: 06/13/21 15:09> Principal diagnosis: Diastolic CHF, atypical PNA, hypoxemia <YELITZA Nicole - Last Filed: 06/13/21 12:30> Interval history: Cardiology follow up for diastolic CHF. Seen at 1100. Today she reports improvement in her breathing. Slept well last night, with HOB partly elevated, and has less sob with walking to BR this am. Continues to have hypoxia with RA sat into 70s with walking to BR. Currently wearing O2 3 liters. No cough. No chest pains, palpitation, dizziness, presyncope, edema. Prior leg tightness has resolved. <YELITZA Nicole - Last Filed: 06/13/21 12:30> Review of Systems Review of Systems as above <YELITZA Nicole - Last Filed: 06/13/21 12:30> Yes all other systems are reviewed and are negative <YELITZA Nicole - Last Filed: 06/13/21 12:30> Physical Exam Vital Signs: Last Vital Signs Temp 96.6 F L 06/13/21 07:27 Pulse 74 06/13/21 10:13 Resp 20 06/13/21 07:27 BP 142/68 H 06/13/21 10:13 Pulse Ox 95 06/13/21 07:27 Oxygen Flow Rate 5 06/09/21 15:27 Body Mass Index 50.3 <YELITZA Nicole - Last Filed: 06/13/21 12:30> Const General: cooperative, healthy appearing, no acute distress, alert and awake <YELITZA Nicole - Last Filed: 06/13/21 12:30> Orientation/consciousness: patient oriented x3 <YELITZA Nicole - Last Filed: 06/13/21 12:30> Neck Other: minimal JVD <YELITZA Nicole - Last Filed: 06/13/21 12:30> Neck: Yes normal visual inspection <YELITZA Nicole - Last Filed: 06/13/21 12:30> Resp Other: Few scattered coarse sounds in lung [place] - no distinct rales or wheezes <LEO NicoleC - Last Filed: 06/13/21 12:30> Effort & Inspection: normal respiratory effort, able to speak in complete sentences and not labored <LEO NicoleC - Last Filed: 06/13/21 12:30> Auscultation: clear to auscultation bilaterally, no rhonchi and no wheezes <Reena Keller NP-C - Last Filed: 06/13/21 12:30> Cardio Jugular venous distension: JVD present <LEO NicoleC - Last Filed: 06/13/21 12:30> Rate: regular rate <LEO Nicole - Last Filed: 06/13/21 12:30> Rhythm: regular rhythm <LEO Nicole - Last Filed: 06/13/21 12:30> Heart sounds: S1 normal heart sound present and S2 normal heart sound present <Reena Keller NP-C - Last Filed: 06/13/21 12:30> Peripheral pulses: Peripheral pulses 2+ throughout <Reena Keller NP-C - Last Filed: 06/13/21 12:30> GI Inspection: Yes normal to inspection <LEO NicoleC - Last Filed: 06/13/21 12:30> Skin General skin exam: no rashes or lesions noted <LEO NicoleC - Last Filed: 06/13/21 12:30> Neuro General: patient oriented x3 <Reena Keller NP-C - Last Filed: 06/13/21 12:30> Extrem General: Yes normal to inspection and No edema <Reena Keller NP-C - Last Filed: 06/13/21 12:30> Results Labs and Meds Result diagrams: : 06/13/21 05:33 06/13/21 05:33 <Reena Keller COST ACCOUNTING ANALYST-C - Last Filed: 06/13/21 12:30> Lab results: Laboratory Results - last 24 hr 06/11/21 06/12/21 06/12/21 05:44 11:25 16:06 WBC RBC Hgb Hct MCV MCH MCHC RDW Plt Count MPV Absolute Nucleated RBC Nucleated RBC % (auto) Sodium Potassium Chloride Carbon Dioxide Anion Gap BUN Creatinine Estim Creat Clear Calc Estimated GFR POC Glucose 179 H 198 H Fasting Glucose Calcium Magnesium Iron Total Bilirubin Direct Bilirubin AST ALT Alkaline Phosphatase Lactate Dehydrogenase B-Natriuretic Peptide Total Protein Albumin DIVYA Screen POSITIVE A DIVYA Titer 1:40 H DIVYA Titer 2 TNP DIVYA Titer 3 TNP DIVYA Pattern Nuclear, Homogeneous A DIVYA Pattern 2 TNP DIVYA Pattern 3 TNP 06/12/21 06/13/21 06/13/21 20:40 05:33 05:33 WBC 10.2 RBC 2.87 L Hgb 8.1 L Hct 25.6 L MCV 89.2 MCH 28.2 MCHC 31.6 RDW 14.6 Plt Count 409 H MPV 9.9 Absolute Nucleated RBC 0.000 Nucleated RBC % (auto) 0.0 Sodium 141 Potassium 5.5 H Chloride 107 Carbon Dioxide 24 Anion Gap 16 BUN 48 H Creatinine 1.78 H Estim Creat Clear Calc 38.8 Estimated GFR 28 POC Glucose 227 H Fasting Glucose 165 H Calcium 8.4 Magnesium 2.1 Iron 22 L Total Bilirubin 0.4 Direct Bilirubin 0.2 AST 18 ALT 25 Alkaline Phosphatase 119 H Lactate Dehydrogenase 285 H B-Natriuretic Peptide Total Protein 5.7 L Albumin 3.2 L DIVYA Screen DIVYA Titer DIVYA Titer 2 DIVYA Titer 3 DIVYA Pattern DIVYA Pattern 2 DIVYA Pattern 3 06/13/21 06/13/21 06/13/21 05:33 07:00 10:55 WBC RBC Hgb Hct MCV MCH MCHC RDW Plt Count MPV Absolute Nucleated RBC Nucleated RBC % (auto) Sodium Potassium Chloride Carbon Dioxide Anion Gap BUN Creatinine Estim Creat Clear Calc Estimated GFR POC Glucose 150 H 191 H Fasting Glucose Calcium Magnesium Iron Total Bilirubin Direct Bilirubin AST ALT Alkaline Phosphatase Lactate Dehydrogenase B-Natriuretic Peptide 119 H Total Protein Albumin DIVYA Screen DIVYA Titer DIVYA Titer 2 DIVYA Titer 3 DIVYA Pattern DIVYA Pattern 2 DIVYA Pattern 3 <YELITZA Nicole - Last Filed: 06/13/21 12:30> Progress Note: A&P Assessment and plan (1) Congestive heart failure: Status: Acute <YELITZA Nicole - Last Filed: 06/13/21 12:30> Assessment and Plan: Acute diastolic CHF. Echo shows EF 55-60%, mild , mild MR. CT scan 06/10 shows findings of edema/ CHF and infectious process cant be ruled out. Pulmonology consult reviewed and findings felt to be more CHF. Was not on lasix previously at home. Has been getting IV lasix here. Fluid balance Neg 1712cc since admit. Cr 1.82 yesterday and 1.78 today. BNP was 173 on admit and 119 today. Breathing reported as being improved. Does not appear grossly fluid overloaded on exam. Has obesity which makes this clinical assessment more challenging. Still has hypoxia with documented O2 sat into 70s with ambulation to BR on room air. Currently on O2 3 liters with sat 95%. CXR completed today - result is still pending. Continue with IV lasix through today. Plan change to PO lasix tomorrow. Continue with strict I+O monitoring, close monitoring of electrolytes and kidney function with electrolyte replacement as warranted. O2 supplement to keep Sat > 90%. May need eval for home O2. Continue management for possible PNA based on her CT findings of possible infection. Has chronic anemia, pt reports unknown cause, with current Hgb 8.1 which can contribute to her CHF and hypoxia. Consider transfusion and eval of anemia. We will follow. <YELITZA Nicole - Last Filed: 06/13/21 12:30> (2) Acute respiratory failure with hypoxia: Status: Acute <YELITZA Nicole - Last Filed: 06/13/21 12:30> (3) Pneumonia: Status: Acute <YELITZA Nicole - Last Filed: 06/13/21 12:30> (4) Acute on chronic renal failure: Status: Acute <YELITZA Nicole - Last Filed: 06/13/21 12:30> Assessment and Plan: Seems to have underlying chronic kidney ds. Labs from 06/23/20 show Cr 1.43 and GFR 36. This admit, Cr up to 1.82, GFR 28 on 06/11 - Being diuresed, kidney function being followed closely. Today Cr 1.78, GFR 28. <YELITZA Nicole - Last Filed: 06/13/21 12:30> Fall Risk Details Current Medications: Current Medications Generic Name Dose Route Start Last Admin Trade Name Vasquez PRN Reason Stop Dose Admin Acetaminophen 650 mg 06/12/21 01:04 Acetaminophen 325 Mg Tablet PO Q6H PRN Pain, Mild (Pain Scale 1-3) Amlodipine Besylate 10 mg 06/10/21 09:00 06/13/21 10:12 Amlodipine Besylate 10 Mg Tablet PO 10 mg DAILY [facility] Administration Protocol Ascorbic Acid 250 mg 06/10/21 09:00 06/13/21 10:13 Ascorbic Acid 250 Mg Tablet PO 250 mg DAILY [facility] Administration Atorvastatin Calcium 80 mg 06/10/21 09:00 06/13/21 10:13 Atorvastatin Calcium 80 Mg Tablet PO 80 mg DAILY [facility] Administration Azithromycin 500 mg 06/12/21 12:15 06/12/21 12:21 Azithromycin 500 Mg Tablet PO 500 mg Q24H [facility] Administration Benzocaine 1 lozenge 06/12/21 01:04 Throat Lozenge, Medicated Lozenge MUCOUS MEM Q2H PRN Sore Throat Carvedilol 3.125 mg 06/09/21 21:00 06/13/21 10:13 Carvedilol 3.125 Mg Tablet PO 3.125 mg BID [facility] Administration Protocol Dextrose 25 gm 06/09/21 16:17 Dextrose 50 % 25 Gm/50 Ml Vial IVPUSH Q15M PRN per Hypoglycemia Standing Ord. Protocol Ferrous Sulfate 324 mg 06/10/21 09:00 06/13/21 10:13 Ferrous Sulfate 324 Mg Tablet.Dr PO 324 mg DAILY [facility] Administration Fluoxetine HCl 20 mg 06/10/21 09:00 06/13/21 10:13 Fluoxetine Hcl 20 Mg Capsule PO 20 mg DAILY [facility] Administration Furosemide 40 mg 06/13/21 09:30 Furosemide 40 Mg/4 Ml Vial IVPUSH 06/14/21 05:00 BID@0900,1800 COUNTS INCLUDE 234 BEDS AT THE [facility] Protocol Furosemide 40 mg 06/14/21 09:00 Furosemide 40 Mg Tablet PO DAILY COUNTS INCLUDE 234 BEDS AT THE [facility] Protocol Glucose 15 gm 06/09/21 16:17 Glucose Gel 15 Gm Gel..Gram. PO Q15M PRN per Hypoglycemia Standing Ord. Protocol Ceftriaxone Sodium 1 gm/ 50 mls @ 100 mls/hr 06/10/21 09:30 06/13/21 11:18 Sodium Chloride IV Infused Q24H COUNTS INCLUDE 234 BEDS AT THE [facility] Infusion Insulin Glargine 50 unit 06/10/21 21:00 06/12/21 21:22 Insulin Glargine,Hum.Rec.Anlog 100 Unit/Ml 10 Ml Vial SUBCUT 50 unit BEDTIME [facility] Administration Insulin Human Lispro 0 unit 06/09/21 16:30 06/13/21 07:21 Insulin Lispro 100 Unit/Ml 3 Ml Vial SUBCUT Not Given QIDACHS COUNTS INCLUDE 234 BEDS AT THE [facility] Protocol Loratadine 10 mg 06/10/21 09:00 06/13/21 10:13 Loratadine 10 Mg Tablet PO 10 mg DAILY [facility] Administration Multivitamins/Minerals 1 tab 06/10/21 09:00 06/13/21 10:13 Multivitamin With Minerals Tablet PO 1 tab DAILY [facility] Administration Pharmacy Consult 1 each 06/09/21 15:31 Consult Rx Perform Med Rec MISCELLANE ONCE PRN Consult order Rivaroxaban 10 mg 06/10/21 09:00 06/13/21 10:13 Rivaroxaban 10 Mg Tablet PO 10 mg DAILY [facility] Administration Sodium Chloride 3 ml 06/10/21 00:00 06/13/21 10:20 0.9 % Sodium Chloride Flush 3 Ml Syringe IVFLUSH 3 ml QSHIFT [facility] Administration Vitamin D 25 mcg 06/10/21 09:00 06/13/21 10:12 Cholecalciferol (Vitamin D3) 25 Mcg Tablet PO 25 mcg DAILY [facility] Administration <YELITZA Nicole - Last Filed: 06/13/21 12:30> Time Spent With Patient Time: Total time spent is greater than 50% in coordination of care (as documented) at patient's floor/unit and/or counseling patient: 30 <YELITZA Nicole - Last Filed: 06/13/21 12:30> Time with patient: 25 - 35 minutes <YELITZA Nicole - Last Filed: 06/13/21 12:30> Progress Note: Quality Stroke Does the patient have a stroke diagnosis?: No <YELITZA Nicole - Last Filed: 06/13/21 12:30> Procedures Date of Service Date of Service: 06/13/21 <YELITZA Nicole - Last Filed: 06/13/21 12:30>
[2021-06-13] MEDS: Insulin Lispro 100 UNIT/ML 3 ML VIAL SUBCUT ×3 (12:03→21:58)
[2021-06-13] MEDS: Furosemide 40 MG/4 ML VIAL IVPUSH ×2 (12:03→17:18)
[2021-06-13] MEDS: Azithromycin 500 MG TABLET PO (12:03)
[2021-06-13 14:17] LABS: IDNOW Serial# 08D9AD1C
[2021-06-13 14:18] LABS: COVID-19 Test Negative (Negative)
[2021-06-13 16:58] LABS: Glucose, Whole Blood 195 mg/dL (60-115)
[2021-06-13 21:28] LABS: Glucose, Whole Blood 163 mg/dL (60-115)
[2021-06-13] MEDS: Insulin Glargine,Hum.rec.anlog 100 UNIT/ML 10 ML VIAL 50 UNIT SUBCUT (21:57)
[2021-06-14] VITALS (12 sets, daily range): BP systolic 104–160; BP diastolic 54–72; PULSE 69–78; RESP 16–18; TEMP 36.1–36.7; O2SAT 80–98
[2021-06-14 00:47] LABS: Strep Pneumo Ag urine Not Detected (Not Detected)
[2021-06-14 07:01] LABS: Anion Gap 13 (12-20); Blood Urea Nitrogen 51 mg/dL (9-16); Calcium 8.6 mg/dL (8.4-10.2); Carbon Dioxide 28 mmol/L (22-29); Chloride 105 mmol/L (96-108); Creatinine Clr Calc Pharmacy 38.1; Estimated Glomerular Filt Rate 28; Glucose Fasting 115 mg/dL (60-99); Potassium 5.3 mmol/L (3.3-5.1); Sodium 141 mmol/L (135-145)
[2021-06-14 07:33] LABS: Glucose, Whole Blood 109 mg/dL (60-115)
[2021-06-14] MEDS: cefTRIAXone sodium 1 GM in 0.9 % Sodium Chloride 50 ML IV (08:10)
[2021-06-14] MEDS: Ferrous Sulfate 324 MG TABLET.DR PO (08:11)
[2021-06-14] MEDS: Loratadine 10 MG TABLET PO (08:11)
[2021-06-14] MEDS: carvediloL 3.125 MG TABLET PO ×2 (08:11→20:15)
[2021-06-14] MEDS: amLODIPine Besylate 10 MG TABLET PO (08:11)
[2021-06-14] MEDS: Rivaroxaban 10 MG TABLET PO (08:11)
[2021-06-14] MEDS: Furosemide 40 MG TABLET PO ×2 (08:11→16:41)
[2021-06-14] MEDS: Cholecalciferol (Vitamin D3) 25 MCG TABLET PO (08:12)
[2021-06-14] MEDS: Atorvastatin Calcium 80 MG TABLET PO (08:12)
[2021-06-14] MEDS: Ascorbic Acid 250 MG TABLET PO (08:12)
[2021-06-14] MEDS: FLUoxetine HCl 20 MG CAPSULE PO (08:12)
[2021-06-14] MEDS: 0.9 % Sodium Chloride Flush 3 ML SYRINGE IVFLUSH ×3 (08:13→20:15)
--- NOTE | 2021-06-14 09:30 | PM.PNCARD ---
Subjective Subjective Date of Service: 06/14/21 Principal diagnosis: Diastolic CHF, atypical PNA, hypoxemia Interval history: Cardiology follow up for the above. Seen at 0815. Today she reports feeling well and breathing comfortably. Slept well. Denies PND, slept with HOB elevated some. No chest pain, palpitation, dizziness. Off O2 at present, trialling room air. Leg edema resolved. Review of Systems Review of Systems as above Yes all other systems are reviewed and are negative Physical Exam Vital Signs: Last Vital Signs Temp 98.0 F 06/14/21 07:27 Pulse 70 06/14/21 08:11 Resp 18 06/14/21 07:27 BP 125/56 L 06/14/21 08:11 Pulse Ox 96 06/14/21 08:22 Oxygen Flow Rate 5 06/09/21 15:27 Body Mass Index 50.3 Const General: cooperative, no acute distress, alert and awake Orientation/consciousness: patient oriented x3 Neck Neck: Yes normal visual inspection and Yes no JVD Resp Other: Few scattered rales noted in lung [place] posteriorly R> L Effort & Inspection: normal respiratory effort, able to speak in complete sentences and not labored Auscultation: clear to auscultation bilaterally, no rhonchi and no wheezes Cardio Rate: regular rate Rhythm: regular rhythm Heart sounds: S1 normal heart sound present and S2 normal heart sound present Peripheral pulses: Peripheral pulses 2+ throughout GI Inspection: Yes normal to inspection Skin General skin exam: no rashes or lesions noted Neuro General: patient oriented x3 Extrem General: Yes normal to inspection and No edema Results Labs and Meds Result diagrams: 06/13/21 05:33 06/14/21 05:22 Lab results: Laboratory Results - last 24 hr 06/10/21 06/13/21 06/13/21 21:44 10:55 13:44 Sodium Potassium Chloride Carbon Dioxide Anion Gap BUN Creatinine Estim Creat Clear Calc Estimated GFR POC Glucose 191 H Fasting Glucose Calcium COVID-19 ([facility]) Negative COVID-19 Clin Com See Note Ur Strep pneumoniae Ag Not Detected 06/13/21 06/13/21 06/14/21 16:53 21:24 05:22 Sodium 141 Potassium 5.3 H Chloride 105 Carbon Dioxide 28 Anion Gap 13 BUN 51 H Creatinine 1.81 H Estim Creat Clear Calc 38.1 Estimated GFR 28 POC Glucose 195 H 163 H Fasting Glucose 115 H Calcium 8.6 COVID-19 ([facility]) COVID-19 Clin Com Ur Strep pneumoniae Ag 06/14/21 07:29 Sodium Potassium Chloride Carbon Dioxide Anion Gap BUN Creatinine Estim Creat Clear Calc Estimated GFR POC Glucose 109 Fasting Glucose Calcium COVID-19 ([facility]IS) COVID-19 Clin Com Ur Strep pneumoniae Ag Imaging Radiologist's impression: Impressions Chest X-Ray 06/13/21 10:14 IMPRESSION: Persistent patchy multifocal airspace disease, right worse than left. Progress Note: A&P Assessment and plan (1) Congestive heart failure: Status: Acute Assessment and Plan: Acute diastolic CHF along with what seems to be atypical PNA. Echo shows EF 55-60%, mild , mild MR. CT scan 06/10 shows findings of edema/ CHF and infectious process cant be ruled out. Pulmonology consult reviewed and findings felt to be more CHF. Was not on lasix previously at home. Had been getting IV lasix here and changed to PO starting today. Fluid balance Neg 2100cc since admit. Cr 1.78 yesterday and 1.81 today. BNP was 173 on admit and 119 yesterday. CXR yesterday still showing patchy multifocal airspace ds. To us this does not appear to be entirely CHF. Breathing reported as being improved. Does not appear grossly fluid overloaded on exam. Has obesity which makes this clinical assessment more challenging. Had been wearing O2 with cannula and now trialing room air. Spoke with Dr Morfin. Plan for CXR today to reeval lung process. Continue mgt for atypical PNA. O2 supplement as needed to keep Sat > 90%. If still hypoxic, May need eval for home O2. Continue PO Lasix. We will sign off - recall if needed. We will arrange for outpt cardiology follow up. She does have chronic anemia which should be further evaluated. Hgb yesterday 8.1. (2) Pneumonia: Status: Acute (3) Acute respiratory failure with hypoxia: Status: Acute (4) Acute on chronic renal failure: Status: Acute Assessment and Plan: Seems to have underlying chronic kidney ds. Labs from 06/23/20 show Cr 1.43 and GFR 36. This admit, Cr up to 1.82, GFR 28 on 06/11 - Was diuresed, kidney function being followed closely. Today Cr 1.81, GFR 28. (5) Anemia: Status: Acute Fall Risk Details Current Medications: Current Medications Generic Name Dose Route Start Last Admin Trade Name Vasquez PRN Reason Stop Dose Admin Acetaminophen 650 mg 06/12/21 01:04 Acetaminophen 325 Mg Tablet PO Q6H PRN Pain, Mild (Pain Scale 1-3) Amlodipine Besylate 10 mg 06/10/21 09:00 06/14/21 08:11 Amlodipine Besylate 10 Mg Tablet PO 10 mg DAILY [facility] Administration Protocol Ascorbic Acid 250 mg 06/10/21 09:00 06/14/21 08:12 Ascorbic Acid 250 Mg Tablet PO 250 mg DAILY [facility] Administration Atorvastatin Calcium 80 mg 06/10/21 09:00 06/14/21 08:12 Atorvastatin Calcium 80 Mg Tablet PO 80 mg DAILY [facility] Administration Azithromycin 500 mg 06/12/21 12:15 06/13/21 12:03 Azithromycin 500 Mg Tablet PO 500 mg Q24H [facility] Administration Benzocaine 1 lozenge 06/12/21 01:04 Throat Lozenge, Medicated Lozenge MUCOUS MEM Q2H PRN Sore Throat Carvedilol 3.125 mg 06/09/21 21:00 06/14/21 08:11 Carvedilol 3.125 Mg Tablet PO 3.125 mg BID [facility] Administration Protocol Dextrose 25 gm 06/09/21 16:17 Dextrose 50 % 25 Gm/50 Ml Vial IVPUSH Q15M PRN per Hypoglycemia Standing Ord. Protocol Ferrous Sulfate 324 mg 06/10/21 09:00 06/14/21 08:11 Ferrous Sulfate 324 Mg Tablet. PO 324 mg DAILY [facility] Administration Fluoxetine HCl 20 mg 06/10/21 09:00 06/14/21 08:12 Fluoxetine Hcl 20 Mg Capsule PO 20 mg DAILY [facility] Administration Furosemide 40 mg 06/14/21 09:00 06/14/21 08:11 Furosemide 40 Mg Tablet PO 40 mg BID@0900,1800 [facility] Administration Protocol Glucose 15 gm 06/09/21 16:17 Glucose Gel 15 Gm Gel..Gram. PO Q15M PRN per Hypoglycemia Standing Ord. Protocol Ceftriaxone Sodium 1 gm/ 50 mls @ 100 mls/hr 06/10/21 09:30 06/14/21 09:08 Sodium Chloride IV Infused Q24H [facility] Infusion Insulin Glargine 50 unit 06/10/21 21:00 06/13/21 21:57 Insulin Glargine,Hum.Rec.Anlog 100 Unit/Ml 10 Ml Vial SUBCUT 50 unit BEDTIME [facility] Administration Insulin Human Lispro 0 unit 06/09/21 16:30 06/14/21 08:12 Insulin Lispro 100 Unit/Ml 3 Ml Vial SUBCUT Not Given QIDACHS [facility] Protocol Loratadine 10 mg 06/10/21 09:00 06/14/21 08:11 Loratadine 10 Mg Tablet PO 10 mg DAILY [facility] Administration Multivitamins/Minerals 1 tab 06/10/21 09:00 06/14/21 08:12 Multivitamin With Minerals Tablet PO 1 tab DAILY [facility] Administration Pharmacy Consult 1 each 06/09/21 15:31 Consult Rx Perform Med Rec MISCELLANE ONCE PRN Consult order Rivaroxaban 10 mg 06/10/21 09:00 06/14/21 08:11 Rivaroxaban 10 Mg Tablet PO 10 mg DAILY [facility] Administration Sodium Chloride 3 ml 06/10/21 00:00 06/14/21 08:13 0.9 % Sodium Chloride Flush 3 Ml Syringe IVFLUSH 3 ml QSHIFT [facility] Administration Vitamin D 25 mcg 06/10/21 09:00 06/14/21 08:12 Cholecalciferol (Vitamin D3) 25 Mcg Tablet PO 25 mcg DAILY [facility] Administration Time Spent With Patient Time: Total time spent is greater than 50% in coordination of care (as documented) at patient's floor/unit and/or counseling patient: 24 Time with patient: 15 - 24 minutes Progress Note: Quality Stroke Does the patient have a stroke diagnosis?: No Procedures Date of Service Date of Service: 06/14/21
--- NOTE | 2021-06-14 10:32 | PC.NURSE ---
Plan of care goal to titrate patient off 3L oxygen to RA. On 3L patient satting 96%. Titrated oxygen off. On room are O2 sats in the low 90s, heart rate in the 80s. Ambulated patient in cali[place] on room air. Patient ambulated about 200 feet and stating she felt short of breath. O2 sats trending as low as 80%. Assisted patient with sitting down. About 3-5 min O2 sats came back up to 88%. Applied 2L O2 via NC. O2 sats improved to 96%. notified.
[2021-06-14 11:02] LABS: Glucose, Whole Blood 156 mg/dL (60-115)
[2021-06-14] MEDS: Azithromycin 500 MG TABLET PO (11:29)
[2021-06-14] MEDS: Insulin Lispro 100 UNIT/ML 3 ML VIAL SUBCUT ×2 (11:29→20:15)
--- NOTE | 2021-06-14 11:35 | HO.PM.IMPN ---
Subjective Subjective Date of Service: 06/14/21 Interval History: much imporved at rest, but still sob on exertion and desaturating to 80% while walking Cardiovascular Cardiovascular: Reports no additional cardiovascular complaints Gastrointestinal Gastrointestinal: Reports no additional gastrointestinal complaints Physical Exam Vital Signs: Vital Signs: Last Vital Signs Temp 98.0 F 06/14/21 07:27 Pulse 70 06/14/21 08:11 Resp 18 06/14/21 07:27 BP 125/56 L 06/14/21 08:11 Pulse Ox 96 06/14/21 10:25 Oxygen Flow Rate 5 06/09/21 15:27 Body Mass Index 50.3 General: AO X 3, no acute distress Resp:? Crackles, R>L CVS: S1,S2,RRR, murmur, 2+ edema GI: soft, non tender, non distended Neuro:? motor grossly intact Psych: appropriate affect Objective Data Current Medications Generic Name Dose Route Start Last Admin Trade Name Freq PRN Reason Stop Dose Admin Acetaminophen 650 mg 06/12/21 01:04 Acetaminophen 325 Mg Tablet PO Q6H PRN Pain, Mild (Pain Scale 1-3) Amlodipine Besylate 10 mg 06/10/21 09:00 06/14/21 08:11 Amlodipine Besylate 10 Mg Tablet PO 10 mg DAILY [facility]RI[facility] Administration Protocol Ascorbic Acid 250 mg 06/10/21 09:00 06/14/21 08:12 Ascorbic Acid 250 Mg Tablet PO 250 mg DAILY [facility] Administration Atorvastatin Calcium 80 mg 06/10/21 09:00 06/14/21 08:12 Atorvastatin Calcium 80 Mg Tablet PO 80 mg DAILY [facility] Administration Azithromycin 500 mg 06/12/21 12:15 06/14/21 11:29 Azithromycin 500 Mg Tablet PO 500 mg Q24H [facility] Administration Benzocaine 1 lozenge 06/12/21 01:04 Throat Lozenge, Medicated Lozenge MUCOUS MEM Q2H PRN Sore Throat Carvedilol 3.125 mg 06/09/21 21:00 06/14/21 08:11 Carvedilol 3.125 Mg Tablet PO 3.125 mg BID [facility] Administration Protocol Dextrose 25 gm 06/09/21 16:17 Dextrose 50 % 25 Gm/50 Ml Vial IVPUSH Q15M PRN per Hypoglycemia Standing Ord. Protocol Ferrous Sulfate 324 mg 06/10/21 09:00 06/14/21 08:11 Ferrous Sulfate 324 Mg Tablet.Dr PO 324 mg DAILY [facility] Administration Fluoxetine HCl 20 mg 06/10/21 09:00 06/14/21 08:12 Fluoxetine Hcl 20 Mg Capsule PO 20 mg DAILY [facility] Administration Furosemide 40 mg 06/14/21 09:00 06/14/21 08:11 Furosemide 40 Mg Tablet PO 40 mg BID@0900,1800 [facility] Administration Protocol Glucose 15 gm 06/09/21 16:17 Glucose Gel 15 Gm Gel..Gram. PO Q15M PRN per Hypoglycemia Standing Ord. Protocol Ceftriaxone Sodium 1 gm/ 50 mls @ 100 mls/hr 06/10/21 09:30 06/14/21 09:08 Sodium Chloride IV Infused Q24H [facility] Infusion Insulin Glargine 50 unit 06/10/21 21:00 06/13/21 21:57 Insulin Glargine,Hum.Rec.Anlog 100 Unit/Ml 10 Ml Vial SUBCUT 50 unit BEDTIME [facility] Administration Insulin Human Lispro 0 unit 06/09/21 16:30 06/14/21 11:29 Insulin Lispro 100 Unit/Ml 3 Ml Vial SUBCUT 2 unit QIDACHS [facility] Administration Protocol Loratadine 10 mg 06/10/21 09:00 06/14/21 08:11 Loratadine 10 Mg Tablet PO 10 mg DAILY [facility] Administration Methylprednisolone Sodium Succinate 40 mg 06/14/21 11:45 Methylprednisolone Sod Succ 40 Mg/Ml Vial IVPUSH Q12H [facility] Multivitamins/Minerals 1 tab 06/10/21 09:00 06/14/21 08:12 Multivitamin With Minerals Tablet PO 1 tab DAILY [facility] Administration Pharmacy Consult 1 each 06/09/21 15:31 Consult Rx Perform Med Rec MISCELLANE ONCE PRN Consult order Rivaroxaban 10 mg 06/10/21 09:00 06/14/21 08:11 Rivaroxaban 10 Mg Tablet PO 10 mg DAILY [facility] Administration Sodium Chloride 3 ml 06/10/21 00:00 06/14/21 08:13 0.9 % Sodium Chloride Flush 3 Ml Syringe IVFLUSH 3 ml QSHIFT [facility] Administration Vitamin D 25 mcg 06/10/21 09:00 06/14/21 08:12 Cholecalciferol (Vitamin D3) 25 Mcg Tablet PO 25 mcg DAILY [facility] Administration Labs CBC & Chem 7: 06/13/21 05:33 06/14/21 05:22 Labs: Laboratory Results - last 24 hr 06/10/21 06/13/21 06/13/21 21:44 13:44 16:53 Anion Gap Estim Creat Clear Calc Estimated GFR POC Glucose 195 H Fasting Glucose Calcium COVID-19 ([facility]) Negative COVID-19 Clin Com See Note Ur Strep pneumoniae Ag Not Detected 06/13/21 06/14/21 06/14/21 21:24 05:22 07:29 Anion Gap 13 Estim Creat Clear Calc 38.1 Estimated GFR 28 POC Glucose 163 H 109 Fasting Glucose 115 H Calcium 8.6 COVID-19 ([facility]) COVID-19 Clin Com Ur Strep pneumoniae Ag 06/14/21 10:56 Anion Gap Estim Creat Clear Calc Estimated GFR POC Glucose 156 H Fasting Glucose Calcium COVID-19 ([facility]) COVID-19 Clin Com Ur Strep pneumoniae Ag Microbiology Microbiology Results: Microbiology 06/09/21 14:15 Blood Culture - Final Blood - Venous 06/09/21 14:15 Blood Culture - Preliminary Blood - Venous Coag negative Staphylococcus Assessment and Plan (1) Congestive heart failure: Status: Acute Assessment and Plan: ?66F presented with sob Acute hypoxic respiratory failure multifactorial acute on chronic diastolic chf diuresed well, changed to po lasix atypical pneumonia - RVP, urine strep-negative, follow up urine legionella rocephin and azithromycin follow up blood cultures - coag negative staph - contaminant still fairly hypoxic on minimal exertion, will start steroids CKD III monitor morbid obesity weight loss Diabetes Basal bolus insulin Hypertension Amlodipine Hyperlipidemia Statin Quality Stroke Does the patient have a stroke diagnosis?: No VTE Prior VTE?: No VTE Risk Level:: Medical - moderate - high VTE Device Contraindication: Treatment Not Indicated VTE Drug Contraindication: N/A - Med Ordered
[2021-06-14] MEDS: methylPREDNISolone Sod Succ 40 MG/ML VIAL IVPUSH ×2 (13:48→23:47)
[2021-06-14 14:57] LABS: Percent Iron Saturation 12 % (15-50); Total Iron Binding Capacity 181 mcg/dL (228-428); Unsaturated Iron Binding 159 ug/dL
[2021-06-14 16:12] LABS: Glucose, Whole Blood 150 mg/dL (60-115)
[2021-06-14 20:10] LABS: Glucose, Whole Blood 278 mg/dL (60-115)
[2021-06-14] MEDS: Insulin Glargine,Hum.rec.anlog 100 UNIT/ML 10 ML VIAL 50 UNIT SUBCUT (20:14)
[2021-06-15] VITALS (11 sets, daily range): BP systolic 139–163; BP diastolic 64–75; PULSE 77–89; RESP 16–18; TEMP 35.9–37.1; O2SAT 93–99
[2021-06-15 06:21] LABS: Hemoglobin 8.8 g/dl (12.0-16.0); Mean Corpuscular HGB Conc 31.4 g/dl (31.0-35.0); Mean Corpuscular Hemoglobin 27.4 pg (27.0-33.0); Mean Corpuscular Volume 87.2 fL (80-98); Platelet Count 483 X10*3/uL (160-400); Red Blood Count 3.21 X10*6/uL (4.20-5.50); Red Cell Distribution Width 14.1 % (11.0-16.0); White Blood Count 10.8 X10*3/uL (4.8-10.8)
[2021-06-15 06:36] LABS: Legionella Ag Urine Not Detected (Not Detected)
[2021-06-15 06:54] LABS: Anion Gap 17 (12-20); Blood Urea Nitrogen 62 mg/dL (9-16); Calcium 8.9 mg/dL (8.4-10.2); Carbon Dioxide 21 mmol/L (22-29); Chloride 102 mmol/L (96-108); Creatinine Clr Calc Pharmacy 33.7; Estimated Glomerular Filt Rate 24; Glucose Fasting 305 mg/dL (60-99); Potassium 5.2 mmol/L (3.3-5.1); Sodium 135 mmol/L (135-145)
[2021-06-15 07:39] LABS: Glucose, Whole Blood 254 mg/dL (60-115)
[2021-06-15] MEDS: 0.9 % Sodium Chloride Flush 3 ML SYRINGE IVFLUSH ×2 (08:18→16:51)
[2021-06-15] MEDS: FLUoxetine HCl 20 MG CAPSULE PO (08:19)
[2021-06-15] MEDS: Insulin Lispro 100 UNIT/ML 3 ML VIAL SUBCUT ×4 (08:19→20:35)
[2021-06-15] MEDS: Loratadine 10 MG TABLET PO (08:19)
[2021-06-15] MEDS: Cholecalciferol (Vitamin D3) 25 MCG TABLET PO (08:20)
[2021-06-15] MEDS: Furosemide 40 MG TABLET PO (08:20)
[2021-06-15] MEDS: Ferrous Sulfate 324 MG TABLET.DR PO (08:20)
[2021-06-15] MEDS: Atorvastatin Calcium 80 MG TABLET PO (08:20)
[2021-06-15] MEDS: Ascorbic Acid 250 MG TABLET PO (08:20)
[2021-06-15] MEDS: amLODIPine Besylate 10 MG TABLET PO (08:20)
[2021-06-15] MEDS: Rivaroxaban 10 MG TABLET PO (08:20)
[2021-06-15] MEDS: carvediloL 3.125 MG TABLET PO ×2 (08:21→20:34)
[2021-06-15] MEDS: cefTRIAXone sodium 1 GM in 0.9 % Sodium Chloride 50 ML IV (09:38)
[2021-06-15] MEDS: methylPREDNISolone Sod Succ 40 MG/ML VIAL IVPUSH (11:22)
[2021-06-15] MEDS: Azithromycin 500 MG TABLET PO (11:23)
[2021-06-15 11:24] LABS: Glucose, Whole Blood 342 mg/dL (60-115)
--- NOTE | 2021-06-15 11:32 | PM.PNCARD ---
Subjective Subjective Date of Service: 06/15/21 Principal diagnosis: Diastolic CHF, atypical PNA, hypoxemia Interval history: She is saying she is feeling better. She walked yesterday and became hypoxic off oxygen. Creatinine is worse today. Her diuretics were held. Physical Exam Vital Signs: Last Vital Signs Temp 98.7 F 06/15/21 10:57 Pulse 80 06/15/21 11:16 Resp 18 06/15/21 10:57 BP 140/68 H 06/15/21 11:16 Pulse Ox 94 06/15/21 11:16 Oxygen Flow Rate 5 06/09/21 15:27 Body Mass Index 50.3 GENERAL APPEARANCE: in no acute distress, pleasant. NECK: no carotid bruit, mild JVD. SKIN: no suspicious lesions, warm and dry. HEART: no murmurs, regular rate and rhythm. LUNGS:? Crackles left more than right base. ABDOMEN: soft, nontender. EXTREMITIES:? Mild edema. PERIPHERAL PULSES: equal. NEUROLOGIC: No gross deficits, AAO X 3 Results Labs and Meds Result diagrams: 06/15/21 05:27 06/15/21 05:27 Lab results: Laboratory Results - last 24 hr 06/10/21 06/13/21 06/14/21 21:44 05:33 16:09 WBC RBC Hgb Hct MCV MCH MCHC RDW Plt Count MPV Absolute Nucleated RBC Nucleated RBC % (auto) Sodium Potassium Chloride Carbon Dioxide Anion Gap BUN Creatinine Estim Creat Clear Calc Estimated GFR POC Glucose 150 H Fasting Glucose Calcium TIBC 181 L % Saturation 12 L Unsat Iron Binding 159 Ur L.pneumophila Ag Not Detected 06/14/21 06/15/21 06/15/21 20:07 05:27 05:27 WBC 10.8 RBC 3.21 L Hgb 8.8 L Hct 28.0 L MCV 87.2 MCH 27.4 MCHC 31.4 RDW 14.1 Plt Count 483 H MPV 10.0 Absolute Nucleated RBC 0.000 Nucleated RBC % (auto) 0.0 Sodium 135 Potassium 5.2 H Chloride 102 Carbon Dioxide 21 L Anion Gap 17 BUN 62 H Creatinine 2.04 H Estim Creat Clear Calc 33.7 Estimated GFR 24 POC Glucose 278 H Fasting Glucose 305 H D Calcium 8.9 TIBC % Saturation Unsat Iron Binding Ur L.pneumophila Ag 06/15/21 06/15/21 07:31 10:58 WBC RBC Hgb Hct MCV MCH MCHC RDW Plt Count MPV Absolute Nucleated RBC Nucleated RBC % (auto) Sodium Potassium Chloride Carbon Dioxide Anion Gap BUN Creatinine Estim Creat Clear Calc Estimated GFR POC Glucose 254 H 342 H Fasting Glucose Calcium TIBC % Saturation Unsat Iron Binding Ur L.pneumophila Ag Progress Note: A&P Assessment and plan (1) Anemia: Status: Acute (2) Acute on chronic renal failure: Status: Acute (3) Congestive heart failure: Status: Acute (4) Pneumonia: Status: Acute Assessment and Plan: Pleasant 66-year-old female presenting for hypoxic respiratory failure due to atypical pneumonia as well as heart failure. She has been hypoxic. Clinically not in florid heart failure. Also with diuresis her creatinine has worsened. I will hold diuretics today. I think she should be on once a day 40 mg Lasix. I think major reason for hypoxia is her underlying pneumonia. Blood pressure control is reasonable right now. Thank you for allowing me to participate in the care of your patient. Please feel free to contact me if you have any questions. Fall Risk Details Current Medications: Current Medications Generic Name Dose Route Start Last Admin Trade Name Freq PRN Reason Stop Dose Admin Acetaminophen 650 mg 06/12/21 01:04 Acetaminophen 325 Mg Tablet PO Q6H PRN Pain, Mild (Pain Scale 1-3) Amlodipine Besylate 10 mg 06/10/21 09:00 06/15/21 08:20 Amlodipine Besylate 10 Mg Tablet PO 10 mg DAILY LORRIE Administration Protocol Ascorbic Acid 250 mg 06/10/21 09:00 06/15/21 08:20 Ascorbic Acid 250 Mg Tablet PO 250 mg DAILY LORRIE Administration Atorvastatin Calcium 80 mg 06/10/21 09:00 06/15/21 08:20 Atorvastatin Calcium 80 Mg Tablet PO 80 mg DAILY LORRIE Administration Azithromycin 500 mg 06/12/21 12:15 06/15/21 11:23 Azithromycin 500 Mg Tablet PO 500 mg Q24H LORRIE Administration Benzocaine 1 lozenge 06/12/21 01:04 Throat Lozenge, Medicated Lozenge MUCOUS MEM Q2H PRN Sore Throat Carvedilol 3.125 mg 06/09/21 21:00 06/15/21 08:21 Carvedilol 3.125 Mg Tablet PO 3.125 mg BID LORRIE Administration Protocol Dextrose 25 gm 06/09/21 16:17 Dextrose 50 % 25 Gm/50 Ml Vial IVPUSH Q15M PRN per Hypoglycemia Standing Ord. Protocol Ferrous Sulfate 324 mg 06/10/21 09:00 06/15/21 08:20 Ferrous Sulfate 324 Mg Tablet.Dr PO 324 mg DAILY LORRIE Administration Fluoxetine HCl 20 mg 06/10/21 09:00 06/15/21 08:19 Fluoxetine Hcl 20 Mg Capsule PO 20 mg DAILY LORRIE Administration Glucose 15 gm 06/09/21 16:17 Glucose Gel 15 Gm Gel..Gram. PO Q15M PRN per Hypoglycemia Standing Ord. Protocol Ceftriaxone Sodium 1 gm/ 50 mls @ 100 mls/hr 06/10/21 09:30 06/15/21 10:14 Sodium Chloride IV Infused Q24H LORRIE Infusion Insulin Glargine 50 unit 06/10/21 21:00 06/14/21 20:14 Insulin Glargine,Hum.Rec.Anlog 100 Unit/Ml 10 Ml Vial SUBCUT 50 unit BEDTIME LORRIE Administration Insulin Human Lispro 0 unit 06/09/21 16:30 06/15/21 11:22 Insulin Lispro 100 Unit/Ml 3 Ml Vial SUBCUT 8 unit QIDACHS LORRIE Administration Protocol Loratadine 10 mg 06/10/21 09:00 06/15/21 08:19 Loratadine 10 Mg Tablet PO 10 mg DAILY LORRIE Administration Methylprednisolone Sodium Succinate 40 mg 06/14/21 12:00 06/15/21 11:22 Methylprednisolone Sod Succ 40 Mg/Ml Vial IVPUSH 40 mg Q12H LORRIE Administration Multivitamins/Minerals 1 tab 06/10/21 09:00 06/15/21 08:19 Multivitamin With Minerals Tablet PO 1 tab DAILY LORRIE Administration Pharmacy Consult 1 each 06/09/21 15:31 Consult Rx Perform Med Rec MISCELLANE ONCE PRN Consult order Rivaroxaban 10 mg 06/10/21 09:00 06/15/21 08:20 Rivaroxaban 10 Mg Tablet PO 10 mg DAILY LORRIE Administration Sodium Chloride 3 ml 06/10/21 00:00 06/15/21 08:18 0.9 % Sodium Chloride Flush 3 Ml Syringe IVFLUSH 3 ml QSHIFT LORRIE Administration Vitamin D 25 mcg 06/10/21 09:00 06/15/21 08:20 Cholecalciferol (Vitamin D3) 25 Mcg Tablet PO 25 mcg DAILY LORRIE Administration Time Spent With Patient Time: Total time spent is greater than 50% in coordination of care (as documented) at patient's floor/unit and/or counseling patient: Time with patient: 15 - 24 minutes Progress Note: Quality Stroke Does the patient have a stroke diagnosis?: No Procedures Date of Service Date of Service: 06/15/21
--- NOTE | 2021-06-15 12:02 | HO.PM.IMPN ---
Subjective Subjective Date of Service: 07/01/21 Interval History: seen in f/y for hypoxia frm chf, pna and --seem to have improved with steroid Constitutional Gen: no fever Resp: no sob, no cough CV: no chest, no LIM, no leg edema GI: No n/v, no abd pain Neuro: No confusion Physical Exam Vital Signs: Vital Signs: Last Vital Signs Temp 98.7 F 06/15/21 10:57 Pulse 80 06/15/21 11:16 Resp 18 06/15/21 10:57 BP 140/68 H 06/15/21 11:16 Pulse Ox 94 06/15/21 11:16 Oxygen Flow Rate 5 06/09/21 15:27 Body Mass Index 50.3 General: AO X 3, no acute distress Resp: CTA bilateral CVS: S1,S2,RRR GI: +BS, NT, no distention Skin: No rash Neuro: motor grossly intact Psych: appropriate affect Objective Data Current Medications Generic Name Dose Route Start Last Admin Trade Name Freq PRN Reason Stop Dose Admin Acetaminophen 650 mg 06/12/21 01:04 Acetaminophen 325 Mg Tablet PO Q6H PRN Pain, Mild (Pain Scale 1-3) Amlodipine Besylate 10 mg 06/10/21 09:00 06/15/21 08:20 Amlodipine Besylate 10 Mg Tablet PO 10 mg DAILY LORRIE Administration Protocol Ascorbic Acid 250 mg 06/10/21 09:00 06/15/21 08:20 Ascorbic Acid 250 Mg Tablet PO 250 mg DAILY LORRIE Administration Atorvastatin Calcium 80 mg 06/10/21 09:00 06/15/21 08:20 Atorvastatin Calcium 80 Mg Tablet PO 80 mg DAILY LORRIE Administration Azithromycin 500 mg 06/12/21 12:15 06/15/21 11:23 Azithromycin 500 Mg Tablet PO 500 mg Q24H LORRIE Administration Benzocaine 1 lozenge 06/12/21 01:04 Throat Lozenge, Medicated Lozenge MUCOUS MEM Q2H PRN Sore Throat Carvedilol 3.125 mg 06/09/21 21:00 06/15/21 08:21 Carvedilol 3.125 Mg Tablet PO 3.125 mg BID LORRIE Administration Protocol Dextrose 25 gm 06/09/21 16:17 Dextrose 50 % 25 Gm/50 Ml Vial IVPUSH Q15M PRN per Hypoglycemia Standing Ord. Protocol Ferrous Sulfate 324 mg 06/10/21 09:00 06/15/21 08:20 Ferrous Sulfate 324 Mg Tablet. PO 324 mg DAILY LORRIE Administration Fluoxetine HCl 20 mg 06/10/21 09:00 06/15/21 08:19 Fluoxetine Hcl 20 Mg Capsule PO 20 mg DAILY LORRIE Administration Glucose 15 gm 06/09/21 16:17 Glucose Gel 15 Gm Gel..Gram. PO Q15M PRN per Hypoglycemia Standing Ord. Protocol Ceftriaxone Sodium 1 gm/ 50 mls @ 100 mls/hr 06/10/21 09:30 06/15/21 10:14 Sodium Chloride IV Infused Q24H LORRIE Infusion Insulin Glargine 50 unit 06/10/21 21:00 06/14/21 20:14 Insulin Glargine,Hum.Rec.Anlog 100 Unit/Ml 10 Ml Vial SUBCUT 50 unit BEDTIME LORRIE Administration Insulin Human Lispro 0 unit 06/09/21 16:30 06/15/21 11:22 Insulin Lispro 100 Unit/Ml 3 Ml Vial SUBCUT 8 unit QIDACHS LORRIE Administration Protocol Loratadine 10 mg 06/10/21 09:00 06/15/21 08:19 Loratadine 10 Mg Tablet PO 10 mg DAILY LORRIE Administration Methylprednisolone Sodium Succinate 40 mg 06/14/21 12:00 06/15/21 11:22 Methylprednisolone Sod Succ 40 Mg/Ml Vial IVPUSH 40 mg Q12H LORRIE Administration Multivitamins/Minerals 1 tab 06/10/21 09:00 06/15/21 08:19 Multivitamin With Minerals Tablet PO 1 tab DAILY LORRIE Administration Pharmacy Consult 1 each 06/09/21 15:31 Consult Rx Perform Med Rec MISCELLANE ONCE PRN Consult order Rivaroxaban 10 mg 06/10/21 09:00 06/15/21 08:20 Rivaroxaban 10 Mg Tablet PO 10 mg DAILY LORRIE Administration Sodium Chloride 3 ml 06/10/21 00:00 06/15/21 08:18 0.9 % Sodium Chloride Flush 3 Ml Syringe IVFLUSH 3 ml QSHIFT LORRIE Administration Vitamin D 25 mcg 06/10/21 09:00 06/15/21 08:20 Cholecalciferol (Vitamin D3) 25 Mcg Tablet PO 25 mcg DAILY LORRIE Administration Labs CBC & Chem 7: 06/15/21 05:27 06/16/21 05:19 Labs: Laboratory Results - last 24 hr 06/09/21 06/10/2121 14:15 05:42 21:44 MCV MCH MCHC RDW Plt Count MPV Absolute Nucleated RBC Nucleated RBC % (auto) Potassium 5.2 H 4.5 Anion Gap Creatinine 1.72 H 1.81 H Estim Creat Clear Calc Estimated GFR POC Glucose Fasting Glucose Calcium TIBC % Saturation Unsat Iron Binding Ur L.pneumophila Ag Not Detected 06/11/21 06/12/21 06/13/21 05:44 04:29 05:33 MCV MCH MCHC RDW Plt Count MPV Absolute Nucleated RBC Nucleated RBC % (auto) Potassium 4.4 5.3 H D 5.5 H Anion Gap Creatinine 1.82 H 1.82 H 1.78 H Estim Creat Clear Calc Estimated GFR POC Glucose Fasting Glucose Calcium TIBC 181 L % Saturation 12 L Unsat Iron Binding 159 Ur L.pneumophila Ag 06/14/21 06/14/21 06/14/21 05:22 16:09 20:07 MCV MCH MCHC RDW Plt Count MPV Absolute Nucleated RBC Nucleated RBC % (auto) Potassium 5.3 H Anion Gap Creatinine 1.81 H Estim Creat Clear Calc Estimated GFR POC Glucose 150 H 278 H Fasting Glucose Calcium TIBC % Saturation Unsat Iron Binding Ur L.pneumophila Ag 06/15/21 06/15/21 06/15/21 05:27 05:27 07:31 MCV 87.2 MCH 27.4 MCHC 31.4 RDW 14.1 Plt Count 483 H MPV 10.0 Absolute Nucleated RBC 0.000 Nucleated RBC % (auto) 0.0 Potassium 5.2 H Anion Gap 17 Creatinine 2.04 H Estim Creat Clear Calc 33.7 Estimated GFR 24 POC Glucose 254 H Fasting Glucose 305 H D Calcium 8.9 TIBC % Saturation Unsat Iron Binding Ur L.pneumophila Ag 06/15/21 10:58 MCV MCH MCHC RDW Plt Count MPV Absolute Nucleated RBC Nucleated RBC % (auto) Potassium Anion Gap Creatinine Estim Creat Clear Calc Estimated GFR POC Glucose 342 H Fasting Glucose Calcium TIBC % Saturation Unsat Iron Binding Ur L.pneumophila Ag Microbiology Microbiology Results: Microbiology 06/09/21 14:15 Blood Culture - Final Blood - Venous Staphylococcus epidermidis 06/09/21 14:15 Blood Culture - Final Blood - Venous Assessment and Plan (1) Congestive heart failure: Assessment and Plan: ?66F presented with sob Acute hypoxic respiratory failure d/t multifactorial causes: -acute on chronic diastolic chf diuresed well, continue oral lasix -Atypical pneumonia - RVP, urine strep-negative, follow up urine legionella -continue rocephin and azithromycin, change to oral Ceftin at dc follow up blood cultures - coag negative staph - contaminant Hypoxia is better, will nancy need oxyven at home. Get home O2 eval -continue steroid for possibly underlying reactive airway component given much CKD III--fairly stable, but need to aleida p eye on it Hyperkalemia--mild and chronic likely from CKD--monitor morbid obesity weight loss measures discussed Diabetes Basal bolus insulin Hypertension Amlodipine Hyperlipidemia Statin Quality Stroke Does the patient have a stroke diagnosis?: No VTE Prior VTE?: No VTE Risk Level:: Medical - moderate - high VTE Device Contraindication: Treatment Not Indicated VTE Drug Contraindication: N/A - Med Ordered
[2021-06-15] MEDS: Sodium Zirconium Cyclosilicate 10 GM POWD.PACK PO (14:00)
[2021-06-15 16:46] LABS: Glucose, Whole Blood 274 mg/dL (60-115)
--- NOTE | 2021-06-15 16:56 | P.CDIC_ITS ---
CDI Concurrent Query Service Date: 06/15/21 Documentation Clarification: PHYSICIAN'S DOCUMENTATION REQUEST Date of Query: 06/15/21 1703 Patient Name: Amaris Hook Admit Date: 06/09/21 Dear Doctor, A review of the medical record indicates additional documentation may be needed. Please review below and update the documentation accordingly. Clinical Indicators: Documentation states the patient was admitted with abdominal pain. Additional clinical indicators from the record include: Risk Factors/Clinical Indicators/Treatments Once testing is complete, please provide, in your documentation the suspected or likely etiology of the abdominal pain, such as: * Colitis * Infectious - indicate known or suspected organism * Ischemic - indicate if acute, subacute, or chronic * Ulcerative - indicate site and any associated complications (bleeding, due to radiation, etc.) * Non-infectious - indicate type such as toxic, allergic, dietetic, eosinophilic, due to radiation, etc. * Gastroenteritis - specify site (gastritis, duodenitis, etc.), acuity, and type/etiology such as alcoholic, toxic, allergic, due to radiation, etc. * Ulcer - indicate location, such as gastric, duodental, etc. and acuity * Cholecystitis - indicate if acute, chronic, or acute on chronic * Cholelithiasis - indicate if associated with cholecystitis (acute or chronic), or with obstruction * Pancreatitis - indicate if acute or chronic and etiology, such as idiopathic, alcoholic, biliary, drug induced, etc. * Gynecological etiology ? PID or other, please specify * Other etiology ? please specify * Unable to determine Use of terms such as suspected, likely, concern for, or probable (associated with a specific diagnosis that is being evaluated, monitored, or treated as if it exists) are acceptable and can be coded in the inpatient setting, when documented at the time of discharge. Thank you, Mily Pierce Extension: Please use your independent medical judgment in providing your response. THIS QUERY IS PART OF THE PERMANENT MEDICAL RECORD PLEASE DO NOT DELETE/MODIFY EXISTING CONTENT Additional information is needed in order to code to the highest accuracy and appropriate Severity of Illness (SOI). Please clarify the information noted below in your progress notes and discharge summary. Risk Factors/Clinical Indicators/Treatments CDS: Mily Pierce RN Contact Number: Please Review the information above and exercise your independent professional judgment in responding to the query. If you concur, pleas document in the PROGRESS NOTES and DISCHARGE SUMMARY. If you do not agree with the query, please document in the query above. THIS QUERY IS PART OF THE PERMANENT MEDICAL RECORD
[2021-06-15 20:21] LABS: Glucose, Whole Blood 352 mg/dL (60-115)
[2021-06-15] MEDS: Insulin Glargine,Hum.rec.anlog 100 UNIT/ML 10 ML VIAL 50 UNIT SUBCUT (20:35)
[2021-06-16] VITALS (7 sets, daily range): BP systolic 134–157; BP diastolic 64–75; PULSE 74–79; RESP 18; TEMP 36.6–37.1; O2SAT 84–97; BMI 45.2
[2021-06-16] MEDS: methylPREDNISolone Sod Succ 40 MG/ML VIAL IVPUSH ×2 (00:14→11:36)
[2021-06-16] MEDS: 0.9 % Sodium Chloride Flush 3 ML SYRINGE IVFLUSH ×2 (00:14→09:13)
[2021-06-16] MEDS: Acetaminophen 325 MG TABLET 650 MG PO (05:04)
[2021-06-16 07:19] LABS: Anion Gap 16 (12-20); Blood Urea Nitrogen 70 mg/dL (9-16); Calcium 8.4 mg/dL (8.4-10.2); Carbon Dioxide 22 mmol/L (22-29); Chloride 101 mmol/L (96-108); Estimated Glomerular Filt Rate 24; Glucose Random 249 mg/dL (60-115); Potassium 4.8 mmol/L (3.3-5.1); Sodium 134 mmol/L (135-145)
[2021-06-16 07:35] LABS: Glucose, Whole Blood 241 mg/dL (60-115)
[2021-06-16] MEDS: Insulin Lispro 100 UNIT/ML 3 ML VIAL SUBCUT ×2 (09:12→11:35)
[2021-06-16] MEDS: Insulin Glargine,Hum.rec.anlog 100 UNIT/ML 10 ML VIAL 10 UNIT SUBCUT (09:13)
[2021-06-16] MEDS: Ferrous Sulfate 324 MG TABLET.DR PO (09:14)
[2021-06-16] MEDS: Loratadine 10 MG TABLET PO (09:14)
[2021-06-16] MEDS: Rivaroxaban 10 MG TABLET PO (09:14)
[2021-06-16] MEDS: Cholecalciferol (Vitamin D3) 25 MCG TABLET PO (09:14)
[2021-06-16] MEDS: FLUoxetine HCl 20 MG CAPSULE PO (09:14)
[2021-06-16] MEDS: Ascorbic Acid 250 MG TABLET PO (09:14)
[2021-06-16] MEDS: amLODIPine Besylate 10 MG TABLET PO (09:18)
[2021-06-16] MEDS: carvediloL 3.125 MG TABLET PO (09:18)
[2021-06-16] MEDS: Atorvastatin Calcium 80 MG TABLET PO (09:19)
[2021-06-16] MEDS: cefTRIAXone sodium 1 GM in 0.9 % Sodium Chloride 50 ML IV (09:48)
[2021-06-16 11:17] LABS: Glucose, Whole Blood 261 mg/dL (60-115)
[2021-06-16] MEDS: Azithromycin 500 MG TABLET PO (11:36)
--- NOTE | 2021-06-16 11:45 | P.DS_ITS ---
DS: Providers Provider Date of Service: 06/16/21 Date of admission: 06/09/21 16:29 Primary care physician: Kristen Min NP Consults: 06/09/21 16:17 Consult to Cardiology Routine Consulting Provider: Janes Bliss Reason for consultation: chf 06/12/21 08:22 Consult to Pulmonology Routine Consulting Provider: Bryson Webster Reason for consultation: hypoxia, ?chf vs atypical pneumonia DS: Diagnosis Discharge Diagnosis (1) Congestive heart failure: (2) Acute respiratory failure with hypoxia: Status: Acute (3) Pneumonia: Status: Resolved DS: Medications Discharge Medications Home Medications: Home Medications Medication Instructions Recorded Confirmed cholecalciferol (vitamin D3) 25 25 mcg PO DAILY 08/23/20 06/09/21 mcg (1,000 unit) capsule ibuprofen 800 mg tablet 800 mg PO TID PRN 08/23/20 06/09/21 insulin lispro 100 unit/mL See Protocol SUBCUT QIDACHS 08/23/20 06/09/21 subcutaneous pen ascorbic acid (vitamin C) 500 mg 250 mg PO DAILY 09/22/20 06/09/21 tablet ferrous sulfate 325 mg (65 mg 325 mg PO DAILY 09/22/20 06/09/21 iron) tablet (FeroSul) fexofenadine 180 mg tablet 180 mg PO DAILY 09/22/20 06/09/21 zwcncygpxowl-Wz-rmaf-minerals 1 tab PO DAILY 09/22/20 06/09/21 (Multiple Vitamin, Womens) Previous Rx's Medication Instructions Recorded fluoxetine 20 mg capsule 20 mg PO DAILY 90 Days #90 cap 10/19/20 lisinopril 20 mg tablet 20 mg PO DAILY 30 Days #30 tab 10/19/20 carvedilol 3.125 mg tablet 3.125 mg PO BID #180 tab 02/01/21 amlodipine 10 mg tablet 10 mg PO DAILY #90 tab 05/02/21 atorvastatin 80 mg tablet 80 mg PO DAILY #90 tab 05/30/21 insulin glargine 100 unit/mL (3 70 unit SUBCUT BEDTIME #15 ml 05/30/21 mL) subcutaneous pen (Lantus Solostar U-100 Insulin) pen needle, diabetic 32 gauge x 1 ea TOPICAL BID-TID #300 ea 05/30/21 (BD Ultra-Fine Susana Pen Needle) azithromycin 500 mg tablet 500 mg PO Q24H 4 Days #4 tab 06/16/21 cefuroxime axetil 500 mg tablet 500 mg PO BID #8 tab 06/16/21 furosemide 40 mg tablet 40 mg PO QAM #30 tab 06/16/21 prednisone 20 mg tablet 40 mg PO DAILY #6 tab 06/16/21 DS: Summary Hospital Course Hospital Course: Admission note HPI 66F presented with lower extremity edema and shortness of breath.? Patient states that over last 2 months she has been having worsening lower extremity edema, weight gain.? This was treated semi successfully with oral Lasix.? Over the last few days patient has been worsening shortness of breath.? Worse on exertion, denies orthopnea or paroxysmal nocturnal dyspnea.? She does no cough worse at night, nonproductive.? Denies fever, chills, sick contacts.? She went to primary care office was found to be hypoxic and sent to ED.? in ED was hypoxic, chest x-ray showed bilateral opacities, was given Lasix and Zosyn.? Hospital course The patient was admitted for acute hypoxic respiratory failure believed to be a result of CHF exacerbation based on elevated BNP and x-ray treated with IV Lasix and Cardiology evaluation with good response as she low significant amount of water and edema in her lower extremities improved back to baseline. Concern for atypical pneumonia as x-ray showed possible infiltrates treated with IV a ntibiotics of azithromycin and ceftriaxone with negative blood cultures. Patient continue to be hypoxic even though after the treatment and noticed to have wheezes so steroids were started for possible reactive airway disease with good response as lungs cleared out. Evaluated by Physical therapy for home oxygen therapy as she maintain her oxygen level in 90s on room air up on resting but drops to 80s with ambulation. To be discharged home on Lasix 40 mg daily to finish antibiotic treatment with prednisone for the next 3 days to follow-up with PCP and Cardiology as outpatient Time Spent with Patient Time attestation: Total time spent providing and/or coordinating discharge services: Discharge coordination time: Greater than 30 minutes Quality: Stroke Does the patient have a stroke diagnosis?: No Physical Exam Vital Signs: Vital Signs: Last Vital Signs Temp 97.8 F 06/16/21 10:59 Pulse 76 06/16/21 10:59 Resp 18 06/16/21 10:59 BP 137/64 06/16/21 10:59 Pulse Ox 91 L 06/16/21 11:35 Oxygen Flow Rate 5 06/09/21 15:27 Body Mass Index 45.2 Const: Other: Constitutional : Alert, oriented, not in distress Neck : Normal inspection, Supple Cardiovascular : RRR, S1 S2, trace bilateral lower extremity edema Respiratory : Good bilateral air entry, no crackles, wheezes or rhonchi Gastrointestinal: soft, lax, Normal bowel sounds, Non tender Skin : Warm, Dry Neurological : Alert & oriented x3, No focal deficit DS: Data Data Completed and Pending Labs on day of discharge: Laboratory Results - last 24 hr 06/15/21 06/15/21 06/16/21 16:37 20:18 05:19 Sodium 134 L Potassium 4.8 Chloride 101 Carbon Dioxide 22 Anion Gap 16 BUN 70 H Creatinine 2.08 H Estim Creat Clear Calc 31.0 Estimated GFR 24 POC Glucose 274 H 352 H* Random Glucose 249 H D Calcium 8.4 06/16/21 06/16/21 07:11 10:59 Sodium Potassium Chloride Carbon Dioxide Anion Gap BUN Creatinine Estim Creat Clear Calc Estimated GFR POC Glucose 241 H 261 H Random Glucose Calcium Discharge Plan Discharge Patient Disposition: Home, Self-Care Discharge Diagnosis: CHF exacerbation Pneumonia Referrals: Kristen Min NP [Primary Care Provider] - 06/20/21 10:00 am (You have a primary care follow up appointment on June 20 at 10:00 am. Please call your doctor's office if you need to reschedule.) Discharge Medications: New azithromycin 500 mg Tablet 500 mg PO Q24H 4 Days Qty: 4 RF: 0 cefuroxime axetil 500 mg tablet 500 mg PO BID Qty: 8 RF: 0 prednisone 20 mg tablet 40 mg PO DAILY Qty: 6 RF: 0 furosemide 40 mg tablet 40 mg PO QAM Qty: 30 RF: 0 Continued fluoxetine 20 mg capsule 20 mg PO DAILY 90 Days Qty: 90 RF: 11 lisinopril 20 mg tablet 20 mg PO DAILY 30 Days Qty: 30 RF: 11 carvedilol 3.125 mg tablet 3.125 mg PO BID Qty: 180 RF: 1 amlodipine 10 mg tablet 10 mg PO DAILY Qty: 90 RF: 2 Lantus Solostar U-100 Insulin 100 unit/mL (3 mL) insulin pen 70 unit subcut BEDTIME Qty: 15 RF: 12 atorvastatin 80 mg tablet 80 mg PO DAILY Qty: 90 RF: 1 pen needle, diabetic [BD Ultra-Fine Susana Pen Needle] 32 gauge x 5/32 needle 1 ea topical BID-TID Qty: 300 RF: 1 ibuprofen 800 mg tablet 800 mg PO TID PRN (Reason: pain) RF: 0 cholecalciferol (vitamin D3) 25 mcg (1,000 unit) capsule 25 mcg PO DAILY RF: 0 insulin lispro 100 unit/mL insulin pen See Protocol unit subcut QIDACHS RF: 0 fexofenadine 180 mg tablet 180 mg PO DAILY RF: 0 Multiple Vitamin, Womens Tablet 1 tab PO DAILY RF: 0 ferrous sulfate [FeroSul] 325 mg (65 mg iron) tablet 325 mg PO DAILY RF: 0 ascorbic acid (vitamin C) 500 mg tablet 250 mg PO DAILY RF: 0 Discharge Orders: Discharge Order (Routine); Ordered 06/16/21 Ordered By: Fredrick Thompson Diet: advance to usual diet and low salt diet Activity on Discharge: As tolerated Stand Alone Forms: Patient Portal Discharge page Care Plan Goals: Read below Health Concerns: Read below Plan of Treatment: You were admitted to the hospital for evaluation of difficulty breathing. Found to be home in heart failure treated with IV Lasix with good response. X-ray was also concerning for possible pneumonia and reactive airway disease treated with antibiotics and steroids. You were weaned down the oxygen but continue to require oxygen supplement upon ambulation. Evaluated by respiratory therapist for home oxygen. Assessment: Continue antibiotic as prescribed Continue prednisone for the next 3 days To use Lasix daily as prescribed Start low-salt diet, monitor your weight at home and report any increased to your primary for further adjustments of medications Patient Instructions: Cefuroxime (By mouth), Furosemide (By mouth), Prednisone (By mouth), Azithromycin (By mouth) Discharge Date/Time: 06/16/21 15:01
[2021-06-16] MEDS: Furosemide 40 MG TABLET PO (12:04)
--- NOTE | 2021-06-16 12:05 | MHC.CM.PN ---
Patient has been medically cleared for dc to home today, no services. Second IMM addressed today with Patient, providing her with the original and placing a copy on the chart.
== END 2021-06-16 15:01 | disposition home or self-care (01) | DRG 291 ==
LOC: HO.ED 16:34 → HO.EDOVER 17:46 → HO.IMC 19:19
PROVIDERS: Internal Medicine; Admitting Provider Internal Medicine; Emergency Provider Internal Medicine; PCP Hospitalist; Visit Provider Student in an Organized Health Care Education/Training Program
DX: I13.0 Hypertensive heart and chronic kidney disease with heart failure and stage 1 through stage 4 chronic kidney disease, or unspecified chronic kidney disease (principal); J18.9 Pneumonia, unspecified organism; J96.01 Acute respiratory failure with hypoxia; I50.33 Acute on chronic diastolic (congestive) heart failure; Z68.42 Body mass index [BMI] 45.0-49.9, adult; E87.5 Hyperkalemia; E78.5 Hyperlipidemia, unspecified; E11.22 Type 2 diabetes mellitus with diabetic chronic kidney disease; N18.30 Chronic kidney disease, stage 3 unspecified; E66.01 Morbid (severe) obesity due to excess calories; Z20.822 Contact with and (suspected) exposure to COVID-19; Z79.1 Long term (current) use of non-steroidal anti-inflammatories (NSAID); Z79.4 Long term (current) use of insulin; Z79.899 Other long term (current) drug therapy
CPT/HCPCS: 0241U; 11104; 36415; 71045; 71250; 80048; 80053; 80076; 82947; 83540; 83605; 83615; 83690; 83735; 83880; 84484; 85025; 85027; 85652; 86038; 86039; 87040; 87077; 87147; 87186; 87205; 87449; 87633; 87635; 87899; 93005; 93306; 96365; 96375; 97162; 99285; J0456; J0696; J1940; J2543; J2920

== ENCOUNTER 2021-07-03 09:08 | Outpatient (REF) | payer MEDICARE, SELFPAY ==
[2021-07-03 10:47] LABS: Hematocrit 33.7 % (37-47); Hemoglobin 10.4 g/dl (12.0-16.0); Mean Corpuscular HGB Conc 30.9 g/dl (31.0-35.0); Mean Corpuscular Hemoglobin 27.4 pg (27.0-33.0); Mean Corpuscular Volume 88.7 fL (80-98); Mean Platelet Volume 10.4 fL (9.4-12.3); Platelet Count 334 X10*3/uL (160-400); Red Cell Distribution Width 15.3 % (11.0-16.0); White Blood Count 9.9 X10*3/uL (4.8-10.8)
[2021-07-03 11:16] LABS: Estimated Average Glucose 163 mg/dL; Hemoglobin A1c % 7.3 %
[2021-07-03 11:27] LABS: Anion Gap 15 (12-20); Blood Urea Nitrogen 48 mg/dL (9-16); Calcium 9.6 mg/dL (8.4-10.2); Carbon Dioxide 22 mmol/L (22-29); Chloride 109 mmol/L (96-108); Estimated Glomerular Filt Rate 32; Glucose Fasting 79 mg/dL (60-99); Potassium 4.9 mmol/L (3.3-5.1); Sodium 141 mmol/L (135-145)
== END 2021-07-03 09:09 | disposition home or self-care (01) ==
LOC: HO.WFDLDS 09:08
PROVIDERS: Visit Provider Hospitalist
DX: Z00.00 Encounter for general adult medical examination without abnormal findings (principal); E11.649 Type 2 diabetes mellitus with hypoglycemia without coma
CPT/HCPCS: 36415; 80048; 83036; 85027

== ENCOUNTER → 2021-07-04 14:19 | Outpatient (BNVA) | payer MEDICARE, SELFPAY | PROVIDERS: PCP Hospitalist; Visit Provider Nurse Practitioner Family | DX: R06.02 Shortness of breath (principal); J18.9 Pneumonia, unspecified organism; I50.30 Unspecified diastolic (congestive) heart failure; I10 Essential (primary) hypertension; E66.9 Obesity, unspecified; E11.65 Type 2 diabetes mellitus with hyperglycemia; Z68.41 Body mass index [BMI] 40.0-44.9, adult; Z88.0 Allergy status to penicillin; Z79.4 Long term (current) use of insulin; Z79.899 Other long term (current) drug therapy | CPT/HCPCS: 99212 ==

== ENCOUNTER 2021-08-08 11:11 | Outpatient (REF) | payer MEDICARE, SELFPAY ==
[2021-08-08 13:58] LABS: Hematocrit 35.6 % (37-47); Hemoglobin 11.2 g/dl (12.0-16.0); Mean Corpuscular HGB Conc 31.5 g/dl (31.0-35.0); Mean Corpuscular Hemoglobin 27.9 pg (27.0-33.0); Mean Corpuscular Volume 88.8 fL (80-98); Mean Platelet Volume 10.6 fL (9.4-12.3); Platelet Count 394 X10*3/uL (160-400); Red Blood Count 4.01 X10*6/uL (4.20-5.50); Red Cell Distribution Width 14.8 % (11.0-16.0); White Blood Count 11.9 X10*3/uL (4.8-10.8)
[2021-08-08 14:26] LABS: Anion Gap 17 (12-20); Blood Urea Nitrogen 51 mg/dL (9-16); Calcium 9.7 mg/dL (8.4-10.2); Carbon Dioxide 23 mmol/L (22-29); Chloride 110 mmol/L (96-108); Estimated Glomerular Filt Rate 28; Glucose Random 85 mg/dL (60-115); Potassium 5.3 mmol/L (3.3-5.1); Sodium 145 mmol/L (135-145)
== END 2021-08-08 11:12 | disposition home or self-care (01) ==
LOC: HO.WFDLDS 11:11
PROVIDERS: Visit Provider Hospitalist
DX: Z00.00 Encounter for general adult medical examination without abnormal findings (principal); R74.8 Abnormal levels of other serum enzymes
CPT/HCPCS: 36415; 80048; 85027

== ENCOUNTER 2021-08-23 14:36 | Outpatient (REF) | payer MEDICARE, SELFPAY ==
--- NOTE | ~2021-08-23 | XR_ITS ---
EXAMINATION: XR CHEST CLINICAL INFORMATION: Pneumonia COMPARISON: 06/14/2021 TECHNIQUE: 2 views of the chest were obtained. FINDINGS: The lungs are well expanded. There is no focal consolidation, edema, or effusion. Previous patchy opacities of the right lung have resolved. No pneumothorax. The cardiomediastinal silhouette is within normal limits. No acute osseous abnormality. Mild degenerative changes of the spine. XR/XR chest 2V IMPRESSION: Clear lungs.
== END 2021-08-23 14:37 | disposition home or self-care (01) ==
LOC: HO.XRAY 14:36
PROVIDERS: PCP Hospitalist; Visit Provider Internal Medicine
DX: R06.00 Dyspnea, unspecified (principal); I11.0 Hypertensive heart disease with heart failure; I50.9 Heart failure, unspecified; E66.9 Obesity, unspecified; Z68.41 Body mass index [BMI] 40.0-44.9, adult; J18.9 Pneumonia, unspecified organism; G47.33 Obstructive sleep apnea (adult) (pediatric)
CPT/HCPCS: 71046; 99202

== ENCOUNTER → 2021-09-07 13:13 | Outpatient (REF) | payer MEDICARE, SELFPAY | LOC: HO.SL 13:13 | PROVIDERS: PCP Hospitalist; Visit Provider Internal Medicine | DX: G47.33 Obstructive sleep apnea (adult) (pediatric) (principal); I50.9 Heart failure, unspecified; E66.9 Obesity, unspecified | CPT/HCPCS: 95806 ==

== ENCOUNTER 2021-10-02 09:58 | Outpatient (REF) | payer MEDICARE, SELFPAY ==
[2021-10-02 12:36] LABS: Estimated Average Glucose 169 mg/dL; Hemoglobin A1c % 7.5 %
== END 2021-10-02 09:59 | disposition home or self-care (01) ==
LOC: HO.WFDLDS 09:58
PROVIDERS: Visit Provider Hospitalist
DX: E11.9 Type 2 diabetes mellitus without complications (principal)
CPT/HCPCS: 36415; 83036

== ENCOUNTER → 2021-10-03 14:40 | Outpatient (BNVA) | payer MEDICARE, SELFPAY | PROVIDERS: PCP Hospitalist; Visit Provider Internal Medicine | DX: G47.33 Obstructive sleep apnea (adult) (pediatric) (principal); E66.01 Morbid (severe) obesity due to excess calories; I50.9 Heart failure, unspecified; Z99.81 Dependence on supplemental oxygen; Z68.41 Body mass index [BMI] 40.0-44.9, adult | CPT/HCPCS: 99212 ==

== ENCOUNTER → 2021-10-31 14:23 | Outpatient (BNVA) | payer MEDICARE, SELFPAY | PROVIDERS: PCP Hospitalist; Referring Provider Hospitalist; Visit Provider Nurse Practitioner Family | DX: I11.0 Hypertensive heart disease with heart failure (principal); I50.9 Heart failure, unspecified; I35.0 Nonrheumatic aortic (valve) stenosis; G47.33 Obstructive sleep apnea (adult) (pediatric); E66.9 Obesity, unspecified; Z68.41 Body mass index [BMI] 40.0-44.9, adult | CPT/HCPCS: 99212 ==

== ENCOUNTER 2021-11-02 12:40 | Outpatient (REF) | payer MEDICARE, SELFPAY ==
[2021-11-02 14:51] LABS: Anion Gap 13 (12-20); Blood Urea Nitrogen 54 mg/dL (9-16); Calcium 8.8 mg/dL (8.4-10.2); Carbon Dioxide 24 mmol/L (22-29); Chloride 108 mmol/L (96-108); Estimated Glomerular Filt Rate 25; Glucose Random 161 mg/dL (60-115); Potassium 5.4 mmol/L (3.3-5.1); Sodium 140 mmol/L (135-145)
== END 2021-11-02 12:41 | disposition home or self-care (01) ==
LOC: HO.WFDLDS 12:40
PROVIDERS: PCP Hospitalist; Visit Provider Nurse Practitioner Family
DX: I10 Essential (primary) hypertension (principal)
CPT/HCPCS: 36415; 80048

== ENCOUNTER 2021-11-21 11:48 | Outpatient (REF) | payer MEDICARE, SELFPAY ==
[2021-11-21 13:49] LABS: Anion Gap 13 (12-20); Blood Urea Nitrogen 41 mg/dL (9-16); Calcium 9.7 mg/dL (8.4-10.2); Carbon Dioxide 26 mmol/L (22-29); Chloride 108 mmol/L (96-108); Estimated Glomerular Filt Rate 33; Glucose Random 232 mg/dL (60-115); Potassium 4.7 mmol/L (3.3-5.1); Sodium 142 mmol/L (135-145)
== END 2021-11-21 11:49 | disposition home or self-care (01) ==
LOC: HO.WFDLDS 11:48
PROVIDERS: Visit Provider Nurse Practitioner Family
DX: I10 Essential (primary) hypertension (principal)
CPT/HCPCS: 36415; 80048

== ENCOUNTER 2022-01-01 09:07 | Outpatient (REF) | payer MEDICARE, SELFPAY ==
[2022-01-01 13:44] LABS: Estimated Average Glucose 197 mg/dL; Hemoglobin A1c % 8.5 %
== END 2022-01-01 09:08 | disposition home or self-care (01) ==
LOC: HO.WFDLDS 09:07
PROVIDERS: Visit Provider Hospitalist
DX: E11.9 Type 2 diabetes mellitus without complications (principal)
CPT/HCPCS: 36415; 83036

== ENCOUNTER → 2022-02-26 10:52 | Outpatient (BNVA) | payer MEDICARE, SELFPAY | PROVIDERS: PCP Hospitalist; Visit Provider Internal Medicine | DX: G47.33 Obstructive sleep apnea (adult) (pediatric) (principal); G47.34 Idiopathic sleep related nonobstructive alveolar hypoventilation; E66.01 Morbid (severe) obesity due to excess calories; Z68.41 Body mass index [BMI] 40.0-44.9, adult | CPT/HCPCS: 99212 ==

== ENCOUNTER 2022-03-12 11:02 | Outpatient (REF) | payer MEDICARE, SELFPAY ==
[2022-03-12 13:27] LABS: Hematocrit 35.8 % (37.0-47.0); Mean Corpuscular HGB Conc 30.7 g/dl (31.0-35.0); Mean Corpuscular Hemoglobin 28.5 pg (27.0-33.0); Mean Corpuscular Volume 92.7 fL (80.0-98.0); Mean Platelet Volume 11.3 fL (9.4-12.3); Platelet Count 339 X10*3/uL (160-400); Red Blood Count 3.86 X10*6/uL (4.20-5.50); Red Cell Distribution Width 13.2 % (11.0-16.0); White Blood Count 14.6 X10*3/uL (4.8-10.8)
[2022-03-12 13:45] LABS: Alanine Aminotransferase 33 U/L (0-31); Albumin Level 3.1 g/dL (3.5-5.0); Alkaline Phosphatase 148 U/L (39-117); Anion Gap 22 (12-20); Aspartate Amino Transferase 31 U/L (5-31); Bilirubin Total 0.3 mg/dL (0.0-1.0); Blood Urea Nitrogen 61 mg/dL (9-16); Carbon Dioxide 17 mmol/L (22-29); Chloride 101 mmol/L (96-108); Estimated Glomerular Filt Rate 17; Glucose Random 340 mg/dL (60-115); Potassium 4.9 mmol/L (3.3-5.1); Sodium 135 mmol/L (135-145); Total Protein 6.5 g/dL (6.5-8.0)
[2022-03-12 14:38] LABS: Influenza A PCR NEGATIVE (Negative); Influenza B PCR NEGATIVE (Negative); Resp Syncy Virus RNA Qual PCR NEGATIVE (Negative); SARS COV2 PCR INHOUSE NEGATIVE (Negative)
== END 2022-03-12 11:03 | disposition home or self-care (01) ==
LOC: HO.WFDLDS 11:02
PROVIDERS: Visit Provider Hospitalist
DX: Z00.00 Encounter for general adult medical examination without abnormal findings (principal); Z20.822 Contact with and (suspected) exposure to COVID-19; R05.9 Cough, unspecified; R11.2 Nausea with vomiting, unspecified
CPT/HCPCS: 0241U; 80053; 85027

== ENCOUNTER 2022-03-12 16:27 | Inpatient (IN) | payer MEDICARE, SELFPAY ==
--- NOTE | ~2022-03-12 | XR_ITS ---
EXAMINATION: XR CHEST CLINICAL INFORMATION: Shortness of breath COMPARISON: Chest x-ray 08/23/2021 TECHNIQUE: Frontal view of the chest was obtained. 5:07 PM FINDINGS: No significant abnormality is noted involving the heart, lungs, mediastinum, bony thorax or soft tissues. XR/XR chest 1V IMPRESSION: Unremarkable examination.
[2022-03-12 16:44] VITALS: BP 91/43; PULSE 72; RESP 18; TEMP 32; O2SAT 99; BMI 41.1
--- NOTE | 2022-03-12 16:47 | ECG_ITS ---
Test Reason : DYSPNEA Blood Pressure : / mmHG Vent. Rate : 072 BPM Atrial Rate : 072 BPM P-R Int : 178 ms QRS Dur : 098 ms QT Int : 416 ms P-R-T Axes : 008 002 059 degrees QTc Int : 455 ms Normal sinus rhythm Moderate voltage criteria for LVH, may be normal variant ( R in aVL , Reji product ) Abnormal ECG When compared with ECG of 09-JUN-2021 15:58, Nonspecific T wave abnormality no longer evident in Inferior leads Referred By: Generic ED Physician Electronically Signed By:Robles Mike
[2022-03-12 17:09] LABS: MANUAL DIFF FLAG NO
[2022-03-12 17:11] LABS: Basophils Percent Auto 0.2 % (0-2); Eosinophils Absolute Auto 0.1 X10*3/uL (0.0-0.4); Eosinophils Percent Auto 0.4 % (0-4); Hematocrit 32.8 % (37.0-47.0); Hemoglobin 10.4 g/dl (12.0-16.0); Imm Gran Abs Auto 0.12 X10*3/uL (0.00-0.03); Imm Gran Pct Auto 0.9 % (0.0-0.4); Lymphocytes Absolute Auto 1.1 X10*3/uL (1.2-4.9); Mean Corpuscular HGB Conc 31.7 g/dl (31.0-35.0); Mean Corpuscular Hemoglobin 28.6 pg (27.0-33.0); Mean Corpuscular Volume 90.1 fL (80.0-98.0); Mean Platelet Volume 10.4 fL (9.4-12.3); Monocytes Absolute Auto 0.6 X10*3/uL (0.1-1.2); Monocytes Percent Auto 4.2 % (2-11); Neutrophils Absolute Auto 11.4 x10*3/uL (2.0-8.3); Neutrophils Percent Auto 86.3 % (45-73); Platelet Count 399 X10*3/uL (160-400); Red Blood Count 3.64 X10*6/uL (4.20-5.50); Red Cell Distribution Width 13.2 % (11.0-16.0); White Blood Count 13.2 X10*3/uL (4.8-10.8)
[2022-03-12 17:38] LABS: Anion Gap 21 (12-20); Blood Urea Nitrogen 66 mg/dL (9-16); Calcium 8.7 mg/dL (8.4-10.2); Carbon Dioxide 19 mmol/L (22-29); Chloride 98 mmol/L (96-108); Creatinine Clr Calc Pharmacy 19.3; Estimated Glomerular Filt Rate 15; Glucose Random 600 mg/dL (60-115); Potassium 5.6 mmol/L (3.3-5.1); Sodium 132 mmol/L (135-145)
[2022-03-12 22:03] VITALS: BP 166/73; PULSE 65; RESP 16; TEMP 36.7; O2SAT 100
[2022-03-12 22:30] LABS: Glucose, Whole Blood 446 mg/dL (60-115)
--- NOTE | 2022-03-12 22:33 | ED.SOB ---
HPI - SOB/Dyspnea General Chief Complaint: Recheck/Abnormal Lab/Rx Stated Complaint: High White Blood Count Per PCP Time Seen by Provider: 03/12/22 21:02 Source: patient Mode of arrival: ambulatory Limitations: no limitations History of Present Illness HPI Narrative: Patient with history of diastolic CHF, obstructive sleep apnea on CPAP, obesity, hypertension, diabetes comes here for 3- 4 weeks of cough mostly dry with increased shortness of breath patient has a nighttime on on exertion using oxygen as needed seen her PCP today with the labs showed slightly elevated WBC count to 14.6 patient denies any chest pain patient missed her insulin today on arrival blood sugar was 600 Related Data Home Medications Medication Instructions Recorded Confirmed cholecalciferol (vitamin D3) 25 25 mcg PO DAILY 08/23/20 01/01/22 mcg (1,000 unit) capsule ibuprofen 800 mg tablet 800 mg PO TID PRN 08/23/20 01/01/22 insulin lispro 100 unit/mL See Protocol SUBCUT QIDACHS 08/23/20 01/01/22 subcutaneous pen ascorbic acid (vitamin C) 500 mg 250 mg PO DAILY 09/22/20 01/01/22 tablet ferrous sulfate 325 mg (65 mg 325 mg PO DAILY 09/22/20 01/01/22 iron) tablet (FeroSul) fexofenadine 180 mg tablet 180 mg PO DAILY 09/22/20 01/01/22 Previous Rx's Medication Instructions Recorded insulin glargine 100 unit/mL (3 70 unit (0.7 mL) SUBCUT BEDTIME 05/30/21 mL) subcutaneous pen (Lantus #15 ml Solostar U-100 Insulin) lisinopril 5 mg tablet 5 mg PO DAILY #30 tab 11/03/21 atorvastatin 80 mg tablet 80 mg PO DAILY #90 tab 11/22/21 fluoxetine 20 mg capsule 20 mg PO DAILY 90 Days #90 cap 11/22/21 pen needle, diabetic 32 gauge x 1 ea MISCELLANEOUS BID-TID #400 ea 11/22/21 (BD Ultra-Fine Susana Pen Needle) furosemide 40 mg tablet 40 mg PO QAM 90 Days #90 tab 01/03/22 carvedilol 6.25 mg tablet 9.375 mg PO BID #180 tab 01/22/22 ondansetron HCl 4 mg tablet 4 mg PO Q8H PRN #12 tab 03/12/22 Allergies Allergy/AdvReac Type Severity Reaction Status Date / Time penicillin V Allergy Severe joint Verified 03/12/22 10:45 swelling and rash Review of Systems Review of Systems: Yes all other systems are reviewed and are negative [facility] Past Medical History Medical History Anemia Bilateral lower extremity edema Congestive heart failure Diabetes type 2, uncontrolled High cholesterol Hypertension, essential Morbid obesity Nocturnal hypoxemia Obesity AMY (obstructive sleep apnea) Pneumonia Surgical History History of D&C History of surgery Family History Family History Father Stroke Mother Stroke Hypertension Diabetes Maternal Grandmother Diabetes Hypertension Stroke Sister Diabetes Breast cancer Son Bipolar 1 disorder Overweight Other Mental health problem Substance abuse Social History Social History Household Members: Family Housing: House Do you presently have visiting nurse or other home services: No Alcohol intake: current Alcohol intake frequency: holidays/special occasions only Patient Tobacco Use Status: Never used Tobacco e-Cigarette/Vaping Use: Never Used Advance Directives: Yes Advance Directives on File: Yes Advance Directives Date on File: 06/09/21 service: No Current occupational status: employed Physical Exam Vital Signs: Vital Signs: Last Vital Signs Temp 98.2 F 03/13/22 00:00 Pulse 67 03/13/22 00:00 Resp 16 03/13/22 00:00 BP 149/62 H 03/13/22 00:00 Pulse Ox 100 03/13/22 00:00 BMI result Body Mass Index 41.1 Appearance: Alert. Oriented X3. No acute distress. Obese Eyes: no pallor ENT: Pharynx normal. Oral Mucosa moist Neck: Normal inspection. Neck supple. CVS: Normal heart rate and rhythm. Pulses normal. Respiratory: No respiratory distress. Equal air entry bilateral, bilateral basal crackles Abdomen: Soft and nontender. Bowel sounds are present, no mass palpable, no CVA tenderness Skin: Skin warm and dry. Normal skin color. Normal skin turgor. Extremities: No lower extremity edema. No calf tenderness Neuro: Oriented X 3. No motor deficit. MDM - SOB/Dyspnea MDM Narrative Medical decision making narrative: Patient with chronic cough normal BNP chest x-ray negative white count slightly elevated has strong odor in the urine will get blood culture lactic acid IV Rocephin ring for urine results. Patient cough is dry likely side effect of lisinopril MARGAUX-inhibitor Differential Diagnosis Differential diagnosis: Likely congestive heart failure Medical Records Attestation: I reviewed the patient's medical records. Lab Data Attestation: I reviewed the patient's lab results. Result diagrams: 03/12/22 16:55 03/12/22 16:55 Labs: Lab Results 03/12/22 03/12/22 03/12/22 Range/Units 16:55 16:55 22:25 WBC 13.2 H (4.8-10.8) X10*3/uL RBC 3.64 L (4.20-5.50) X10*6/uL Hgb 10.4 L (12.0-16.0) g/dl Hct 32.8 L (37.0-47.0) % MCV 90.1 (80.0-98.0) fL MCH 28.6 (27.0-33.0) pg MCHC 31.7 (31.0-35.0) g/dl RDW 13.2 (11.0-16.0) % Plt Count 399 (160-400) X10*3/uL MPV 10.4 (9.4-12.3) fL Immature Gran % (Auto) 0.9 H (0.0-0.4) % Neut % (Auto) 86.3 H (45-73) % Lymph % (Auto) 8.0 L (20-40) % [place] % (Auto) 4.2 (2-11) % Eos % (Auto) 0.4 (0-4) % Baso % (Auto) 0.2 (0-2) % Lymph # (Auto) 1.1 L (1.2-4.9) X10*3/uL [place] # (Auto) 0.6 (0.1-1.2) X10*3/uL Eos # (Auto) 0.1 (0.0-0.4) X10*3/uL Baso # (Auto) 0.0 (0.0-0.2) X10*3/uL Abs Immat Gran (auto) 0.12 H (0.00-0.03) X10*3/uL Absolute Neuts (auto) 11.4 H (2.0-8.3) x10*3/uL Absolute Nucleated RBC 0.000 (0.0-0.012) X10*3/uL Nucleated RBC % (auto) 0.0 (0.0-0.2) /100WBC VBG pH (7.32-7.43) VBG pCO2 mmHg VBG pO2 mmHg VBG HCO3 (22-26) mmol/L VBG O2 Saturation % VBG Base Excess mmol/L Sodium 132 L (135-145) mmol/L Potassium 5.6 H (3.3-5.1) mmol/L Chloride 98 (96-108) mmol/L Carbon Dioxide 19 L (22-29) mmol/L Anion Gap 21 H (12-20) BUN 66 H (9-16) mg/dL Creatinine 3.11 H (0.5-1.4) mg/dL Estim Creat Clear Calc 19.3 Estimated GFR 15 POC Glucose 446 H* (60-115) mg/dL Random Glucose 600 H* (60-115) mg/dL Calcium 8.7 (8.4-10.2) mg/dL Total Bilirubin (0.0-1.0) mg/dL Direct Bilirubin (0.0-0.5) mg/dL AST (5-31) U/L ALT (0-31) U/L Alkaline Phosphatase (39-117) U/L Troponin I High Sens (<3.5-17.0) ng/L B-Natriuretic Peptide (<100) pg/mL Total Protein (6.5-8.0) g/dL Albumin (3.5-5.0) g/dL Urine Color Urine Appearance Urine pH (5.0-8.0) Ur Specific [place] (1.005-1.025) Urine Protein (NEG-TRACE) MG/DL Urine Glucose (UA) (NEG) MG/DL Urine Ketones (NEG) MG/DL Urine Blood (NEG) Urine Nitrite (NEG) Ur Leukocyte Esterase (NEG) Urine RBC (0) /HPF Urine WBC (0-4) /HPF Ur Squamous Epith Cells /LPF Urine Bacteria /LPF Granular Casts /LPF Urine Mucus /LPF Acetone, Qual (Negative) COVID-19 (LUIS) (Negative) COVID-19 Clin Com Influenza Type A (MAYUR) (Negative) Influenza Type B (MAYUR) (Negative) Influenza A & B Note 03/12/22 03/12/22 03/12/22 Range/Units 22:34 23:01 23:01 WBC (4.8-10.8) X10*3/uL RBC (4.20-5.50) X10*6/uL Hgb (12.0-16.0) g/dl Hct (37.0-47.0) % MCV (80.0-98.0) fL MCH (27.0-33.0) pg MCHC (31.0-35.0) g/dl RDW (11.0-16.0) % Plt Count (160-400) X10*3/uL MPV (9.4-12.3) fL Immature Gran % (Auto) (0.0-0.4) % Neut % (Auto) (45-73) % Lymph % (Auto) (20-40) % [place] % (Auto) (2-11) % Eos % (Auto) (0-4) % Baso % (Auto) (0-2) % Lymph # (Auto) (1.2-4.9) X10*3/uL [place] # (Auto) (0.1-1.2) X10*3/uL Eos # (Auto) (0.0-0.4) X10*3/uL Baso # (Auto) (0.0-0.2) X10*3/uL Abs Immat Gran (auto) (0.00-0.03) X10*3/uL Absolute Neuts (auto) (2.0-8.3) x10*3/uL Absolute Nucleated RBC (0.0-0.012) X10*3/uL Nucleated RBC % (auto) (0.0-0.2) /100WBC VBG pH (7.32-7.43) VBG pCO2 mmHg VBG pO2 mmHg VBG HCO3 (22-26) mmol/L VBG O2 Saturation % VBG Base Excess mmol/L Sodium (135-145) mmol/L Potassium (3.3-5.1) mmol/L Chloride (96-108) mmol/L Carbon Dioxide (22-29) mmol/L Anion Gap (12-20) BUN (9-16) mg/dL Creatinine (0.5-1.4) mg/dL Estim Creat Clear Calc Estimated GFR POC Glucose (60-115) mg/dL Random Glucose (60-115) mg/dL Calcium (8.4-10.2) mg/dL Total Bilirubin 0.2 (0.0-1.0) mg/dL Direct Bilirubin < 0.2 (0.0-0.5) mg/dL AST 36 H (5-31) U/L ALT 46 H (0-31) U/L Alkaline Phosphatase 157 H (39-117) U/L Troponin I High Sens 8.7 (<3.5-17.0) ng/L B-Natriuretic Peptide 14 (<100) pg/mL Total Protein 6.4 L (6.5-8.0) g/dL Albumin 3.3 L (3.5-5.0) g/dL Urine Color Urine Appearance Urine pH (5.0-8.0) Ur Specific [place] (1.005-1.025) Urine Protein (NEG-TRACE) MG/DL Urine Glucose (UA) (NEG) MG/DL Urine Ketones (NEG) MG/DL Urine Blood (NEG) Urine Nitrite (NEG) Ur Leukocyte Esterase (NEG) Urine RBC (0) /HPF Urine WBC (0-4) /HPF Ur Squamous Epith Cells /LPF Urine Bacteria /LPF Granular Casts /LPF Urine Mucus /LPF Acetone, Qual Negative (Negative) COVID-19 (LUIS) Negative (Negative) COVID-19 Clin Com See Note Influenza Type A (MAYUR) (Negative) Influenza Type B (MAYUR) (Negative) Influenza A & B Note 03/12/22 03/12/22 03/13/22 Range/Units 23:05 23:16 01:10 WBC (4.8-10.8) X10*3/uL RBC (4.20-5.50) X10*6/uL Hgb (12.0-16.0) g/dl Hct (37.0-47.0) % MCV (80.0-98.0) fL MCH (27.0-33.0) pg MCHC (31.0-35.0) g/dl RDW (11.0-16.0) % Plt Count (160-400) X10*3/uL MPV (9.4-12.3) fL Immature Gran % (Auto) (0.0-0.4) % Neut % (Auto) (45-73) % Lymph % (Auto) (20-40) % [place] % (Auto) (2-11) % Eos % (Auto) (0-4) % Baso % (Auto) (0-2) % Lymph # (Auto) (1.2-4.9) X10*3/uL [place] # (Auto) (0.1-1.2) X10*3/uL Eos # (Auto) (0.0-0.4) X10*3/uL Baso # (Auto) (0.0-0.2) X10*3/uL Abs Immat Gran (auto) (0.00-0.03) X10*3/uL Absolute Neuts (auto) (2.0-8.3) x10*3/uL Absolute Nucleated RBC (0.0-0.012) X10*3/uL Nucleated RBC % (auto) (0.0-0.2) /100WBC VBG pH 7.27 L (7.32-7.43) VBG pCO2 46 mmHg VBG pO2 43 mmHg VBG HCO3 22 (22-26) mmol/L VBG O2 Saturation 63.0 % VBG Base Excess -4.8 mmol/L Sodium (135-145) mmol/L Potassium (3.3-5.1) mmol/L Chloride (96-108) mmol/L Carbon Dioxide (22-29) mmol/L Anion Gap (12-20) BUN (9-16) mg/dL Creatinine (0.5-1.4) mg/dL Estim Creat Clear Calc Estimated GFR POC Glucose (60-115) mg/dL Random Glucose (60-115) mg/dL Calcium (8.4-10.2) mg/dL Total Bilirubin (0.0-1.0) mg/dL Direct Bilirubin (0.0-0.5) mg/dL AST (5-31) U/L ALT (0-31) U/L Alkaline Phosphatase (39-117) U/L Troponin I High Sens (<3.5-17.0) ng/L B-Natriuretic Peptide (<100) pg/mL Total Protein (6.5-8.0) g/dL Albumin (3.5-5.0) g/dL Urine Color YELLOW Urine Appearance HAZY Urine pH 6.0 (5.0-8.0) Ur Specific [place] >= 1.030 H (1.005-1.025) Urine Protein 2+ H (NEG-TRACE) MG/DL Urine Glucose (UA) 500 H (NEG) MG/DL Urine Ketones NEG (NEG) MG/DL Urine Blood TRACE (NEG) Urine Nitrite NEG (NEG) Ur Leukocyte Esterase 1+ H (NEG) Urine RBC 1-4 (0) /HPF Urine WBC 30-49 H (0-4) /HPF Ur Squamous Epith Cells 1+ /LPF Urine Bacteria 4+ /LPF Granular Casts 0-2 /LPF Urine Mucus 1+ /LPF Acetone, Qual (Negative) COVID-19 (LUIS) (Negative) COVID-19 Clin Com Influenza Type A (MAYUR) Negative (Negative) Influenza Type B (MAYUR) Negative (Negative) Influenza A & B Note See Note ECG Data Attestation: I personally reviewed and interpreted this ECG as follows: Interpretation: Normal sinus rhythm heart rate 72 beats per minute LVH poor progression of R-wave no acute ST T wave changes no acute ischemia Discharge Plan Discharge Clinical Impression: Acute renal failure, UTI (urinary tract infection), Cough due to MARGAUX inhibitor, Hyperglycemia due to diabetes mellitus Patient Disposition: Admitted As Inpatient
[2022-03-12 22:59] LABS: COVID-19 Test Negative (Negative)
[2022-03-12 23:11] LABS: Venous Blood Gas Refer to POC result
[2022-03-12] MEDS: Insulin Lispro 100 UNIT/ML 3 ML VIAL 10 UNIT SUBCUT (23:11)
[2022-03-12 23:12] LABS: VBG Base Excess -4.8 mmol/L; VBG HCO3 22 mmol/L (22-26); VBG pCO2 46 mmHg; VBG pH 7.27 (7.32-7.43); VBG pO2 43 mmHg
[2022-03-12] MEDS: Furosemide 40 MG/4 ML VIAL IVPUSH (23:12)
[2022-03-12 23:25] LABS: Alanine Aminotransferase 46 U/L (0-31); Albumin Level 3.3 g/dL (3.5-5.0); Alkaline Phosphatase 157 U/L (39-117); Aspartate Amino Transferase 36 U/L (5-31); Bilirubin Direct < 0.2 mg/dL (0.0-0.5); Bilirubin Total 0.2 mg/dL (0.0-1.0); Total Protein 6.4 g/dL (6.5-8.0)
[2022-03-12 23:28] LABS: B Type Natriuretic Peptide 14 pg/mL (<100); Troponin-I High Sensitivity 8.7 ng/L (<3.5-17.0)
[2022-03-13] VITALS: BP 149/62; PULSE 67; RESP 16; TEMP 36.8; O2SAT 100
[2022-03-13 00:20] LABS: IDNOW Serial# 16C4AD1C; Influenza A Negative (Negative); Influenza B2 Negative (Negative)
[2022-03-13 01:18] LABS: Acetone, serum QL Negative (Negative)
[2022-03-13 01:19] LABS: Appearance Urine HAZY; Color Urine YELLOW; Glucose Urine UA 500 MG/DL (NEG); Leukocyte Esterase Urine 1+ (NEG); Nitrite Urine NEG (NEG); Specific Gravity - Urine >= 1.030 (1.005-1.025); UACC Culture Trigger YES; Urine Blood TRACE (NEG); Urine Ketones NEG (NEG); Urine Protein 2+ MG/DL (NEG-TRACE)
[2022-03-13 01:28] LABS: Bacteria Urine 4+ /LPF; Granular Casts Urine 0-2 /LPF; Mucus Urine 1+ /LPF; Squamous Epithelial Cell Urine 1+ /LPF; WBC Urine 30-49 /HPF (0-4)
--- NOTE | 2022-03-13 01:46 | PM.IMHP ---
History of Present Illness Date of Service: 03/13/22 Chief Complaint: cough 67-year-old female with a past medical history of hypertension, hyperlipidemia, diabetes, diastolic CHF, obesity, AMY on CPAP, nocturnal hypoxemia, on home oxygen; presented to the hospital today with a chief complaint of cough. Patient reports that over the past 2-3 weeks he has been having cough-dry; denies any fevers. Denies any recent travel or sick contacts. Also mentioned that she has not been eating and drinking enough; Today she went to her PCPs office and had routine blood work done and noted to have elevated white count and subsequently asked to go to the ER for further evaluation. Patient denies any chest pain or palpitations. Denies any GI symptoms. Review of all other systems is negative except mentioned above ER course: Per ER team patient noted a mild leukocytosis; on labs noted to elevated creatinine; also had fingerstick glucose in 600s; not in DKA; given IV fluids and insulin; admitted to the hospital for further management. [facility] Medical History Anemia Bilateral lower extremity edema Congestive heart failure Diabetes type 2, uncontrolled High cholesterol Hypertension, essential Morbid obesity Nocturnal hypoxemia Obesity AMY (obstructive sleep apnea) Pneumonia Family History Father Stroke Mother Stroke Hypertension Diabetes Maternal Grandmother Diabetes Hypertension Stroke Sister Diabetes Breast cancer Son Bipolar 1 disorder Overweight Other Mental health problem Substance abuse Surgical History History of D&C History of surgery Social History Household Members: Family Housing: House Do you presently have visiting nurse or other home services: No Alcohol intake: current Alcohol intake frequency: holidays/special occasions only Patient Tobacco Use Status: Never used Tobacco e-Cigarette/Vaping Use: Never Used Advance Directives: Yes Advance Directives on File: Yes Advance Directives Date on File: 06/09/21 service: No Current occupational status: employed Meds Allergies Allergy/AdvReac Type Severity Reaction Status Date / Time penicillin V Allergy Severe joint Verified 03/12/22 10:45 swelling and rash Active Medications: Current Medications Sodium Chloride (Ns) 1,000 mls @ 999 mls/hr IV .[id number] ONE Stop: 03/13/22 02:07 Home Medications Medication Instructions Recorded Confirmed Last Taken Type cholecalciferol (vitamin D3) 25 25 mcg PO DAILY 08/23/20 01/01/22 06/09/21 History mcg (1,000 unit) capsule ibuprofen 800 mg tablet 800 mg PO TID PRN 08/23/20 01/01/22 06/09/21 History insulin lispro 100 unit/mL See Protocol SUBCUT QIDACHS 08/23/20 01/01/22 06/09/21 History subcutaneous pen ascorbic acid (vitamin C) 500 mg 250 mg PO DAILY 09/22/20 01/01/22 06/09/21 History tablet ferrous sulfate 325 mg (65 mg 325 mg PO DAILY 09/22/20 01/01/22 06/09/21 History iron) tablet (FeroSul) fexofenadine 180 mg tablet 180 mg PO DAILY 09/22/20 01/01/22 06/09/21 History Physical Exam Vital Signs and Narrative: Vital Signs: Last Vital Signs Temp 98.2 F 03/13/22 00:00 Pulse 67 03/13/22 00:00 Resp 16 03/13/22 00:00 BP 149/62 H 03/13/22 00:00 Pulse Ox 100 03/13/22 00:00 BMI result Body Mass Index 41.1 Gen: Appears be in no acute distress HEENT: NCAT, Moist mucosa. Pulmonary: Vesicular breath sounds, fair air entry CVS: Normal S1-S2 Abdomen: BS+, Soft, Nontender Extremities: Warm well perfused Neuro: Alert and awake. Results Labs CBC and Chem 7: 03/12/22 16:55 03/12/22 16:55 Labs: Laboratory Results - last 24 hr 03/12/22 03/12/22 03/12/22 16:55 16:55 22:25 MCV 90.1 MCH 28.6 MCHC 31.7 RDW 13.2 Plt Count 399 MPV 10.4 Immature Gran % (Auto) 0.9 H Neut % (Auto) 86.3 H Lymph % (Auto) 8.0 L [place] % (Auto) 4.2 Eos % (Auto) 0.4 Baso % (Auto) 0.2 Lymph # (Auto) 1.1 L [place] # (Auto) 0.6 Eos # (Auto) 0.1 Baso # (Auto) 0.0 Abs Immat Gran (auto) 0.12 H Absolute Neuts (auto) 11.4 H Absolute Nucleated RBC 0.000 Nucleated RBC % (auto) 0.0 VBG pH VBG pCO2 VBG pO2 VBG HCO3 VBG O2 Saturation VBG Base Excess Anion Gap 21 H Estim Creat Clear Calc 19.3 Estimated GFR 15 POC Glucose 446 H* Random Glucose 600 H* Calcium 8.7 Total Bilirubin Direct Bilirubin AST ALT Alkaline Phosphatase Troponin I High Sens B-Natriuretic Peptide Total Protein Albumin Urine Color Urine Appearance Urine pH Ur Specific [place] Urine Protein Urine Glucose (UA) Urine Ketones Urine Blood Urine Nitrite Ur Leukocyte Esterase Urine RBC Urine WBC Ur Squamous Epith Cells Urine Bacteria Granular Casts Urine Mucus Acetone, Qual COVID-19 (LUIS) COVID-19 Clin Com Influenza Type A (MAYUR) Influenza Type B (MAYUR) Influenza A & B Note 03/12/22 03/12/22 03/12/22 22:34 23:01 23:01 MCV MCH MCHC RDW Plt Count MPV Immature Gran % (Auto) Neut % (Auto) Lymph % (Auto) [place] % (Auto) Eos % (Auto) Baso % (Auto) Lymph # (Auto) [place] # (Auto) Eos # (Auto) Baso # (Auto) Abs Immat Gran (auto) Absolute Neuts (auto) Absolute Nucleated RBC Nucleated RBC % (auto) VBG pH VBG pCO2 VBG pO2 VBG HCO3 VBG O2 Saturation VBG Base Excess Anion Gap Estim Creat Clear Calc Estimated GFR POC Glucose Random Glucose Calcium Total Bilirubin 0.2 Direct Bilirubin < 0.2 AST 36 H ALT 46 H Alkaline Phosphatase 157 H Troponin I High Sens 8.7 B-Natriuretic Peptide 14 Total Protein 6.4 L Albumin 3.3 L Urine Color Urine Appearance Urine pH Ur Specific [place] Urine Protein Urine Glucose (UA) Urine Ketones Urine Blood Urine Nitrite Ur Leukocyte Esterase Urine RBC Urine WBC Ur Squamous Epith Cells Urine Bacteria Granular Casts Urine Mucus Acetone, Qual Negative COVID-19 (LUIS) Negative COVID-19 Clin Com See Note Influenza Type A (MAYUR) Influenza Type B (MAYUR) Influenza A & B Note 03/12/22 03/12/22 03/13/22 23:05 23:16 01:10 MCV MCH MCHC RDW Plt Count MPV Immature Gran % (Auto) Neut % (Auto) Lymph % (Auto) [place] % (Auto) Eos % (Auto) Baso % (Auto) Lymph # (Auto) [place] # (Auto) Eos # (Auto) Baso # (Auto) Abs Immat Gran (auto) Absolute Neuts (auto) Absolute Nucleated RBC Nucleated RBC % (auto) VBG pH 7.27 L VBG pCO2 46 VBG pO2 43 VBG HCO3 22 VBG O2 Saturation 63.0 VBG Base Excess -4.8 Anion Gap Estim Creat Clear Calc Estimated GFR POC Glucose Random Glucose Calcium Total Bilirubin Direct Bilirubin AST ALT Alkaline Phosphatase Troponin I High Sens B-Natriuretic Peptide Total Protein Albumin Urine Color YELLOW Urine Appearance HAZY Urine pH 6.0 Ur Specific [place] >= 1.030 H Urine Protein 2+ H Urine Glucose (UA) 500 H Urine Ketones NEG Urine Blood TRACE Urine Nitrite NEG Ur Leukocyte Esterase 1+ H Urine RBC 1-4 Urine WBC 30-49 H Ur Squamous Epith Cells 1+ Urine Bacteria 4+ Granular Casts 0-2 Urine Mucus 1+ Acetone, Qual COVID-19 (LUIS) COVID-19 Clin Com Influenza Type A (MAYUR) Negative Influenza Type B (MAYUR) Negative Influenza A & B Note See Note Imaging Radiologist's Impressions: Impressions Chest X-Ray 03/12/22 17:04 IMPRESSION: Unremarkable examination. Assessment and Plan (1) Acute renal failure: Status: Acute (2) UTI (urinary tract infection): Status: Acute (3) Cough due to MARGAUX inhibitor: Status: Acute (4) Hyperglycemia due to diabetes mellitus: Status: Acute Plan 67-year-old female with a past medical history of hypertension, hyperlipidemia, diabetes, diastolic CHF, obesity, AMY on CPAP, nocturnal hypoxemia, on home oxygen; presented to the hospital today with a chief complaint of cough. Admitted for following Cough: Chest x-ray showed no evidence of pneumonia. Question related to lisinopril. Cough suppressants. PACHECO on CKD: Patient baseline creatinine around 1.8. Creatinine on presentation was 3.2. Avoid nephrotoxins. Will hold home lisinopril, furosemide for now. Nephrology consult. Gentle IV fluids. Likely prerenal in the setting of poor oral intake as well as patient continued to take her Lasix and lisinopril. Diabetes/ hyperglycemia: Patient fingerstick glucose was in 600 on presentation. Not in DKA. Will keep the patient on Lantus 50 units( patient was on 70 units at home) plus insulin sliding scale. Monitor fingerstick glucose and adjust as needed. UTI: Continue ceftriaxone. Follow up cultures. History of diastolic CHF: Patient currently not in fluid overload. Patient Lasix on hold given PACHECO. Monitor for signs of fluid overload. History of AMY /nocturnal hypoxemia: Continue home oxygen. Home CPAP. DVT prophylaxis: subcu heparin Code status: Full code Quality Stroke Does the patient have a stroke diagnosis?: No VTE Prior VTE?: No VTE Risk Level:: Medical - moderate - high VTE Device Contraindication: Treatment Not Indicated VTE Drug Contraindication: N/A - Med Ordered
[2022-03-13 01:54] VITALS: BP 134/62; PULSE 67; RESP 18; TEMP 36.7; O2SAT 99
[2022-03-13 02:00] VITALS: BP 163/71; PULSE 67; RESP 14; TEMP 36.9; O2SAT 100
[2022-03-13] MEDS: cefTRIAXone sodium 1 GM in 0.9 % Sodium Chloride 50 ML IV (02:02)
[2022-03-13 02:17] LABS: Lactic Acid 1.4 mmol/L (0.5-2.0)
[2022-03-13] MEDS: 0.9 % Sodium Chloride 1,000 ML 999 ML IV (02:18)
[2022-03-13] MEDS: Heparin Sodium,Porcine 5,000 UNIT/ML VIAL 5000 UNIT SUBCUT ×3 (02:18→19:47)
[2022-03-13] MEDS: Insulin Lispro 100 UNIT/ML 3 ML VIAL 8 UNIT SUBCUT (02:18)
[2022-03-13] MEDS: 0.9 % Sodium Chloride 1,000 ML 50 ML IVCONT ×2 (03:10→23:49)
[2022-03-13 05:06] LABS: Basophils Percent Auto 0.4 % (0-2); Eosinophils Absolute Auto 0.2 X10*3/uL (0.0-0.4); Eosinophils Percent Auto 2.2 % (0-4); Hematocrit 33.2 % (37.0-47.0); Hemoglobin 10.6 g/dl (12.0-16.0); Imm Gran Pct Auto 0.9 % (0.0-0.4); Lymphocytes Absolute Auto 1.8 X10*3/uL (1.2-4.9); Lymphocytes Percent Auto 16.3 % (20-40); MANUAL DIFF FLAG NO; Mean Corpuscular HGB Conc 31.9 g/dl (31.0-35.0); Mean Platelet Volume 10.2 fL (9.4-12.3); Monocytes Percent Auto 9.3 % (2-11); Neutrophils Absolute Auto 7.7 x10*3/uL (2.0-8.3); Neutrophils Percent Auto 70.9 % (45-73); Platelet Count 363 X10*3/uL (160-400); Red Blood Count 3.65 X10*6/uL (4.20-5.50); Red Cell Distribution Width 13.2 % (11.0-16.0); White Blood Count 10.8 X10*3/uL (4.8-10.8)
[2022-03-13 05:21] LABS: Glucose, Whole Blood 336 mg/dL (60-115)
[2022-03-13 05:39] LABS: Anion Gap 15 (12-20); Blood Urea Nitrogen 67 mg/dL (9-16); Calcium 8.7 mg/dL (8.4-10.2); Carbon Dioxide 23 mmol/L (22-29); Chloride 105 mmol/L (96-108); Creatinine Clr Calc Pharmacy 21.8; Estimated Glomerular Filt Rate 17; Glucose Random 188 mg/dL (60-115); Potassium 4.7 mmol/L (3.3-5.1); Sodium 138 mmol/L (135-145)
[2022-03-13 06:00] VITALS: BP 153/73; PULSE 69; RESP 15; TEMP 36.5; O2SAT 100
[2022-03-13 07:37] LABS: Glucose, Whole Blood 167 mg/dL (60-115)
[2022-03-13] MEDS: Insulin Lispro 100 UNIT/ML 3 ML VIAL SUBCUT ×3 (07:39→19:46)
--- NOTE | 2022-03-13 08:31 | PHA.MEDREC ---
Pharmacy Consult ? Medication Reconciliation Pharmacy has completed the medication reconciliation. Pt admittedly does not take medications consistently or at the same time each day. Stated she takes her atorvastatin sometimes at night, sometimes in the morning. Was unsure about her sliding scale dose of short acting insulin, says she doesn't think about it because it's taped to her monitor.
[2022-03-13] MEDS: 0.9 % Sodium Chloride Flush 3 ML SYRINGE IVFLUSH ×2 (09:50→23:48)
--- NOTE | 2022-03-13 10:03 | MHC.CM.PN ---
Met with patient in regards to discharge planning. Patient lives with her son and daughter in law, ambulates independently and is active with [facility] [place] for oxygen. No additional services anticipated to be needed at d/c. PCP verified. Copy of HCP verified to be on file. Patient received 3 Moderna vaccines. IMM explained and signed. Patient's family will transport her home when medically stable. Continue to monitor for d/c needs.
--- NOTE | 2022-03-13 10:50 | PM.EVENT ---
Event Note Date of Service: 03/13/22 Event Note: Patient seen and examined, she was admitted this morning with cough with concern for possible MARGAUX-inhibitor related cough she also has acute renal insufficiency. Continue managment as outline in H and P of this morning.
[2022-03-13 13:58] LABS: Glucose, Whole Blood 273 mg/dL (60-115)
[2022-03-13 14:51] VITALS: BP 167/66; PULSE 74; RESP 13; TEMP 36.8; O2SAT 99
--- NOTE | 2022-03-13 19:22 | PM.CNNEP ---
History of Present Illness Reason for Consult Consult date: 03/13/22 Reason for consult: PACHECO Chief Complaint Chief complaint: PACHECO on CKD History of Present Illness Narrative: 67-year-old female with a past medical history of hypertension, hyperlipidemia, diabetes, diastolic CHF, obesity, AMY on CPAP, nocturnal hypoxemia, on home oxygen; presented to the hospital today with a chief complaint of cough. Patient admits she is not eating or drinking much leading up to hospital presentation. In Ed noted to have fingerstick glucose in 600s; not in DKA; given IV fluids and insulin; admitted to the hospital for further management. BUN/Cr = 61/2.73. Patient denies urinary retention. ROS otherwise negative. Review of Systems Review of Systems Yes all other systems are reviewed and are negative Constitutional: Reports as per [facility] Past Medical History Medical History Anemia Bilateral lower extremity edema Congestive heart failure Diabetes type 2, uncontrolled High cholesterol Hypertension, essential Morbid obesity Nocturnal hypoxemia Obesity AMY (obstructive sleep apnea) Pneumonia Family History Family History Father Stroke Mother Stroke Hypertension Diabetes Maternal Grandmother Diabetes Hypertension Stroke Sister Diabetes Breast cancer Son Bipolar 1 disorder Overweight Other Mental health problem Substance abuse Surgical History Surgical History History of D&C History of surgery Social History Social History Household Members: Family Housing: House Do you presently have visiting nurse or other home services: No Alcohol intake: current Alcohol intake frequency: holidays/special occasions only Patient Tobacco Use Status: Never used Tobacco e-Cigarette/Vaping Use: Never Used Advance Directives: Yes Advance Directives on File: Yes Advance Directives Date on File: 06/09/21 service: No Current occupational status: employed Meds Allergies Allergy/AdvReac Type Severity Reaction Status Date / Time penicillin V Allergy Severe joint Verified 03/12/22 10:45 swelling and rash Active Medications: Current Medications Acetaminophen (Acetaminophen 325 Mg Tablet) 650 mg PO Q6H PRN PRN Reason: Pain, Mild (Pain Scale 1-3) Benzonatate (Benzonatate 100 Mg Capsule) 100 mg PO TID PRN PRN Reason: Cough Dextrose (Dextrose 50 % 25 Gm/50 Ml Syringe) 25 gm IVPUSH Q15M PRN; Protocol PRN Reason: per Hypoglycemia Standing Ord. Glucose (Glucose Gel 15 Gm Gel..Gram.) 15 gm PO Q15M PRN; Protocol PRN Reason: per Hypoglycemia Standing Ord. Heparin Sodium (Porcine) (Heparin Sodium,Porcine 5,000 Unit/Ml Vial) 5,000 unit SUBCUT Q8H [facility] Last Admin: 03/13/22 10:02 Dose: 5,000 unit Documented by: Sodium Chloride (Ns) 1,000 mls @ 50 mls/hr IVCONT .Q20H [facility] Last Admin: 03/13/22 03:10 Dose: 50 mls/hr Documented by: Ceftriaxone Sodium 1 gm/ (Sodium Chloride) 50 mls @ 100 mls/hr IV Q24H [facility] Insulin Glargine (Insulin Glargine,Hum.Rec.Anlog 100 Unit/Ml 10 Ml Vial) 50 unit SUBCUT BEDTIME [facility] Insulin Human Lispro (Insulin Lispro 100 Unit/Ml 3 Ml Vial) 0 unit SUBCUT QIDACHS [facility]; Protocol Last Admin: 03/13/22 14:49 Dose: 6 unit Documented by: Melatonin (Melatonin 3 Mg Tablet) 6 mg PO BEDTIME PRN PRN Reason: Insomnia Senna (Sennosides 8.6 Mg Tablet) 17.2 mg PO BEDTIME PRN PRN Reason: Constipation Sodium Chloride (0.9 % Sodium Chloride Flush 3 Ml Syringe) 3 ml IVFLUSH QSHIFT [facility] Last Admin: 03/13/22 14:49 Dose: Not Given Documented by: Home Medications Medication Instructions Recorded Confirmed Last Taken Type cholecalciferol (vitamin D3) 25 25 mcg PO DAILY 08/23/20 03/13/22 03/12/22 History mcg (1,000 unit) capsule ibuprofen 800 mg tablet 800 mg PO TID PRN 08/23/20 03/13/22 06/09/21 History insulin lispro 100 unit/mL See Protocol SUBCUT QIDACHS 08/23/20 03/13/22 06/09/21 History subcutaneous pen ascorbic acid (vitamin C) 500 mg 500 mg PO DAILY 09/22/20 03/13/22 03/12/22 History tablet ferrous sulfate 325 mg (65 mg 325 mg PO DAILY 09/22/20 03/13/22 03/12/22 History iron) tablet (FeroSul) fexofenadine 180 mg tablet 180 mg PO DAILY 09/22/20 03/13/22 03/12/22 History furosemide 40 mg tablet 40 mg PO DAILY 03/13/22 03/13/22 03/12/22 History Physical Exam Vital Signs: Last Vital Signs Temp 98.2 F 03/13/22 14:51 Pulse 74 03/13/22 14:51 Resp 13 03/13/22 14:51 BP 167/66 H 03/13/22 14:51 Pulse Ox 99 03/13/22 14:51 BMI result Body Mass Index 41.1 Const General: comfortable and no acute distress HEENT Head: Yes normocephalic Neck Neck: Yes no JVD Resp Auscultation: clear to auscultation bilaterally Cardio Jugular venous distension: no JVD Rate: regular rate Rhythm: regular rhythm Heart sounds: S1 normal heart sound present and S2 normal heart sound present GI Auscultation: normal bowel sounds Neuro General: no focal motor deficits Extrem General: Yes no clubbing, cyanosis or edema Results Lab Results Result Diagrams: 03/13/22 04:59 03/13/22 04:59 Lab results: Chemistry 03/12/22 03/13/22 16:55 04:59 Sodium 132 L 138 Potassium 5.6 H 4.7 Carbon Dioxide 19 L 23 BUN 66 H 67 H Creatinine 3.11 H 2.76 H Calcium 8.7 8.7 Hematology 03/12/22 03/13/22 16:55 04:59 WBC 13.2 H 10.8 Hgb 10.4 L 10.6 L Plt Count 399 363 Urinalysis 03/13/22 01:10 Urine Color YELLOW Urine Appearance HAZY Urine pH 6.0 Ur Specific [place] >= 1.030 H Urine Protein 2+ H Urine Glucose (UA) 500 H Urine Ketones NEG Urine Blood TRACE Urine Nitrite NEG Ur Leukocyte Esterase 1+ H Urine RBC 1-4 Urine WBC 30-49 H Ur Squamous Epith Cells 1+ Assessment and Plan (1) Acute renal failure: Status: Acute 67-year-old female with a past medical history of hypertension, hyperlipidemia, diabetes, diastolic CHF, obesity, AMY on CPAP, nocturnal hypoxemia, on home oxygen; presented to the hospital today with a chief complaint of cough. Patient admits she is not eating or drinking much leading up to hospital presentation. In Ed noted to have fingerstick glucose in 600s; not in DKA; given IV fluids and insulin; admitted to the hospital for further management. BUN/Cr = 61/2.73. Patient denies urinary retention. Problem List: PACHECO CKD BL 1.6-1.8mg/dL Hyponatremia hyperglycemia #) PACHECO, non-oliguric: Glucose control. UA with noted glucosuria which may have further worsened her PACHECO with osmotic diuresis. UA with wbc?s. sterile pyuria. With few rbcs. Will add c3/c4, urine eosinophils to assess for ain however I have less suspicion of GN at this time. Noted cough on acei. acei use further interfered with renal autoregulation in state of osmotic diuresis and likely exacerbated her pacheco. Renal panel daily Lokelma 10 G prn K> 5.0 I/O?s Avoidance of nsaids, acei/arb, IV contrast, renal dosing abx. Urine studies added. (2) Cough due to MARGAUX inhibitor: Status: Acute Procedures Date of Service Date of Service: 03/13/22
[2022-03-13 20:43] LABS: Glucose, Whole Blood 380 mg/dL (60-115)
[2022-03-13 20:45] VITALS: BP 152/59; PULSE 76; RESP 20; TEMP 36.6; O2SAT 100
[2022-03-13] MEDS: Insulin Glargine,Hum.rec.anlog 100 UNIT/ML 10 ML VIAL 50 UNIT SUBCUT (21:37)
[2022-03-14] VITALS: BP 188/84; PULSE 66; RESP 16; O2SAT 100
[2022-03-14 01:36] LABS: Glucose, Whole Blood 293 mg/dL (60-115)
[2022-03-14 01:36] LABS: Glucose, Whole Blood 316 mg/dL (60-115)
[2022-03-14] MEDS: cefTRIAXone sodium 1 GM in 0.9 % Sodium Chloride 50 ML IV (02:47)
[2022-03-14 04:00] VITALS: BP 173/78; PULSE 73; RESP 20; TEMP 36.6; O2SAT 100
[2022-03-14 07:23] LABS: Glucose, Whole Blood 230 mg/dL (60-115)
[2022-03-14 07:45] VITALS: BP 149/76; PULSE 66; RESP 19; TEMP 36.8; O2SAT 99
[2022-03-14] MEDS: Insulin Lispro 100 UNIT/ML 3 ML VIAL SUBCUT ×2 (08:43→12:41)
[2022-03-14] MEDS: Loratadine 10 MG TABLET PO (08:44)
[2022-03-14] MEDS: Atorvastatin Calcium 80 MG TABLET PO (08:44)
[2022-03-14] MEDS: 0.9 % Sodium Chloride Flush 3 ML SYRINGE IVFLUSH (08:44)
--- NOTE | 2022-03-14 09:55 | MHC.CM.PN ---
Female 67 DX PACHECO/CKD Lives with family. Home O2 is provided by [facility]. DP home no services family will transport. Patient preferrence is [facility] if services are required.
[2022-03-14] MEDS: Heparin Sodium,Porcine 5,000 UNIT/ML VIAL 5000 UNIT SUBCUT (10:16)
[2022-03-14] MEDS: carvediloL 3.125 MG TABLET 9.375 MG PO (10:18)
[2022-03-14] MEDS: FLUoxetine HCl 20 MG CAPSULE PO (10:18)
[2022-03-14] MEDS: Ferrous Sulfate 324 MG TABLET.DR PO (10:18)
[2022-03-14 10:35] LABS: Anion Gap 14 (12-20); Blood Urea Nitrogen 52 mg/dL (9-16); Calcium 8.4 mg/dL (8.4-10.2); Carbon Dioxide 23 mmol/L (22-29); Chloride 107 mmol/L (96-108); Creatinine Clr Calc Pharmacy 30.3; Estimated Glomerular Filt Rate 25; Glucose Random 292 mg/dL (60-115); Potassium 5.2 mmol/L (3.3-5.1); Sodium 139 mmol/L (135-145)
--- NOTE | 2022-03-14 11:43 | PM.DS ---
DS: Providers Provider Date of Service: 03/14/22 Date of admission: 03/13/22 01:43 Primary care physician: Kristen Min NP Consults: 03/13/22 01:43 Consult to Nephrology Routine Consulting Provider: Maxime Dumont Reason for consultation: acute on chronic kidney injury DS: Diagnosis Discharge Diagnosis (1) Acute renal failure: Status: Acute (2) Cough due to MARGAUX inhibitor: Status: Acute DS: Summary Hospital Course Hospital Course: from initial hpi: Chief Complaint:? cough ?67-year-old female with a past medical history of hypertension, hyperlipidemia, diabetes, diastolic CHF, obesity, AMY on CPAP, nocturnal hypoxemia, on home oxygen; presented to the hospital today with a chief complaint of cough.? Patient reports that over the past 2-3 weeks he has been having cough-dry; denies any fevers.? Denies any recent travel or sick contacts.? Also mentioned that she has not been eating and drinking enough; Today she went to her PCPs office and had routine blood work done and noted to have elevated white count and subsequently asked to go to the ER for further evaluation.? Patient denies any chest pain or palpitations.? Denies any GI symptoms.? Review of all other systems is negative except mentioned above ER course: Per ER team patient noted a mild leukocytosis; on labs noted to elevated creatinine; also had fingerstick glucose in 600s; not in DKA; given IV fluids and insulin; admitted to the hospital for further management. hospital course: Patient was admitted for acute kidney injury in the setting of CKD 3. Her lisinopril and Lasix were held, she was given IV fluids. Her creatinine improved close to baseline of 2. Lisinopril will continue to be held, she should avoid NSAIDs as much as possible. Course was complicated by diabetes with hyperglycemia, she was given basal bolus insulin and sugars are much better controlled. Patient did have a positive urinalysis, however urine cultures were negative and denies dysuria, she did receive 3 doses of ceftriaxone, will not treat further. For chronic diastolic CHF she will restart maintenance Lasix on discharge. For AMY/nocturnal hypoxemia she will continue home oxygen and CPAP. For her cough this is felt likely to be due to MARGAUX-inhibitor, it did improve on stopping and she will discontinue lisinopril. Time Spent with Patient Time attestation: Total time spent providing and/or coordinating discharge services: Discharge coordination time: Greater than 30 minutes Quality: Safe Use of Opioids Does Pt have an Active Cancer Diagnosis on the Problem List?: No Quality: Stroke Does the patient have a stroke diagnosis?: No Physical Exam Vital Signs: Vital Signs: Last Vital Signs Temp 98.2 F 03/14/22 07:45 Pulse 66 03/14/22 07:45 Resp 19 03/14/22 07:45 BP 149/76 H 03/14/22 07:45 Pulse Ox 99 03/14/22 07:45 BMI result Body Mass Index 41.1 General: AO X 3, no acute distress Resp: CTA bilateral, no accessory muscles used CVS: S1,S2,RRR GI: soft, non tender, non distended Neuro: motor grossly intact, alert Psych: appropriate affect, appropriate insight DS: Data Data Completed and Pending Labs on day of discharge: Laboratory Results - last 24 hr 03/13/22 03/13/22 03/13/22 13:54 18:29 19:32 Sodium Potassium Chloride Carbon Dioxide Anion Gap BUN Creatinine Estim Creat Clear Calc Estimated GFR POC Glucose 273 H 316 H 293 H Random Glucose Calcium 03/13/22 03/14/22 03/14/22 20:40 07:07 09:38 Sodium 139 Potassium 5.2 H Chloride 107 Carbon Dioxide 23 Anion Gap 14 BUN 52 H Creatinine 1.99 H Estim Creat Clear Calc 30.3 Estimated GFR 25 POC Glucose 380 H* 230 H Random Glucose 292 H Calcium 8.4 Preliminary micro results at discharge 03/13/22 02:01 Blood Culture - Preliminary Blood - Venous No growth after 24 hours. 03/13/22 02:01 Blood Culture - Preliminary Blood - Venous No growth after 24 hours. Discharge Plan Discharge Patient Disposition: Home, Self-Care Discharge Diagnosis: mica Referrals: Kristen Min NP [Primary Care Provider] - 1 Week Discharge Medications: Continued Lantus Solostar U-100 Insulin 100 unit/mL (3 mL) insulin pen 70 unit subcut BEDTIME Qty: 15 12RF fluoxetine 20 mg capsule 20 mg PO DAILY 90 Days Qty: 90 3RF atorvastatin 80 mg tablet 80 mg PO DAILY Qty: 90 3RF carvedilol 6.25 mg tablet 9.375 mg PO BID Qty: 180 3RF furosemide 40 mg tablet 40 mg PO DAILY 0RF cholecalciferol (vitamin D3) 25 mcg (1,000 unit) capsule 25 mcg PO DAILY 0RF insulin lispro 100 unit/mL insulin pen See Protocol unit subcut S[place] 0RF Protocol: Insulin Correction Scale Less than or equal to 110 ---- Give (units): 0 111 to 150 Give (units): 0 151 to 200 Give (units): 2 201 to 250 Give (units): 4 251 to 300 Give (units): 6 301 to 350 Give (units): 8 Greater than 350 Give (units): 10 Call MD if Blood Glucose > : 350 Rx Instructions: 160-179 2 units, 180-200 4 units, 201-220 6 units, 221-250 8 units 251 and over is 10 units fexofenadine 180 mg tablet 180 mg PO DAILY 0RF ferrous sulfate [FeroSul] 325 mg (65 mg iron) tablet 325 mg PO DAILY 0RF ascorbic acid (vitamin C) 500 mg tablet 500 mg PO DAILY 0RF Discontinued lisinopril 5 mg tablet 5 mg PO DAILY Qty: 30 5RF ibuprofen 800 mg tablet 800 mg PO TID PRN (Reason: pain) 0RF Discharge Orders: Discharge Order (Routine); Ordered 03/14/22 Ordered By: Joseph Morfin Diet: advance to usual diet Activity on Discharge: As tolerated Stand Alone Forms: Patient Portal Discharge page Care Plan Goals: recovery Health Concerns: mica, cough Plan of Treatment: dc lisinopril, avoid nsaids Assessment: see above
[2022-03-14 11:46] LABS: Glucose, Whole Blood 226 mg/dL (60-115)
[2022-03-14 12:00] VITALS: BP 141/64; PULSE 64; RESP 20; TEMP 37.1; O2SAT 99
--- NOTE | 2022-03-14 13:51 | MHC.CM.PN ---
03/13/22 Female 67 IMM DX PACHECO/CKD Patient is discharged to home, no services. Patient has arranged for transportation.
== END 2022-03-14 15:26 | disposition home or self-care (01) | DRG 683 ==
LOC: HO.ED 03-13 01:12 → HO.EDOVER 03-13 01:58 → HO.IMC 03-13 19:39
PROVIDERS: Internal Medicine; Admitting Provider Hospitalist; Emergency Provider Internal Medicine; PCP Hospitalist; Visit Provider Internal Medicine
DX: N17.9 Acute kidney failure, unspecified (principal); Z68.41 Body mass index [BMI] 40.0-44.9, adult; I50.32 Chronic diastolic (congestive) heart failure; N39.0 Urinary tract infection, site not specified; I13.0 Hypertensive heart and chronic kidney disease with heart failure and stage 1 through stage 4 chronic kidney disease, or unspecified chronic kidney disease; E66.01 Morbid (severe) obesity due to excess calories; G47.33 Obstructive sleep apnea (adult) (pediatric); E11.22 Type 2 diabetes mellitus with diabetic chronic kidney disease; E11.65 Type 2 diabetes mellitus with hyperglycemia; N18.30 Chronic kidney disease, stage 3 unspecified; E78.5 Hyperlipidemia, unspecified; Z20.822 Contact with and (suspected) exposure to COVID-19; Z99.81 Dependence on supplemental oxygen; Z88.0 Allergy status to penicillin; Z79.4 Long term (current) use of insulin; Z79.899 Other long term (current) drug therapy
CPT/HCPCS: 36415; 71045; 80048; 80076; 81001; 82009; 82803; 82947; 83605; 83880; 84484; 85025; 87040; 87086; 87502; 87635; 93005; 96361; 96374; 96375; 99285; J0696; J1940

== ENCOUNTER 2022-03-21 12:15 | Outpatient (REF) | payer MEDICARE, SELFPAY ==
[2022-03-21 14:23] LABS: Anion Gap 14 (12-20); Blood Urea Nitrogen 46 mg/dL (9-16); Calcium 8.8 mg/dL (8.4-10.2); Carbon Dioxide 23 mmol/L (22-29); Chloride 111 mmol/L (96-108); Estimated Glomerular Filt Rate 28; Glucose Random 73 mg/dL (60-115); Potassium 4.9 mmol/L (3.3-5.1); Sodium 143 mmol/L (135-145)
== END 2022-03-21 12:16 | disposition home or self-care (01) ==
LOC: HO.WFDLDS 12:15
PROVIDERS: Visit Provider Hospitalist
DX: N17.9 Acute kidney failure, unspecified (principal)
CPT/HCPCS: 36415; 80048

== ENCOUNTER → 2022-04-03 13:01 | Outpatient (BNVA) | payer MEDICARE, SELFPAY | PROVIDERS: PCP Hospitalist; Visit Provider Internal Medicine | DX: G47.33 Obstructive sleep apnea (adult) (pediatric) (principal); G47.34 Idiopathic sleep related nonobstructive alveolar hypoventilation; E66.01 Morbid (severe) obesity due to excess calories; Z68.41 Body mass index [BMI] 40.0-44.9, adult; Z99.89 Dependence on other enabling machines and devices | CPT/HCPCS: 99212 ==

== ENCOUNTER 2022-04-16 10:34 | Outpatient (REF) | payer MEDICARE, SELFPAY ==
[2022-04-16 14:41] LABS: Anion Gap 17 (12-20); Blood Urea Nitrogen 42 mg/dL (9-16); Calcium 8.9 mg/dL (8.4-10.2); Carbon Dioxide 25 mmol/L (22-29); Chloride 105 mmol/L (96-108); Estimated Glomerular Filt Rate 27; Glucose Random 108 mg/dL (60-115); Potassium 4.6 mmol/L (3.3-5.1); Sodium 142 mmol/L (135-145)
== END 2022-04-16 10:35 | disposition home or self-care (01) ==
LOC: HO.WFDLDS 10:34
PROVIDERS: Visit Provider Hospitalist
DX: N17.9 Acute kidney failure, unspecified (principal)
CPT/HCPCS: 36415; 80048

== ENCOUNTER 2022-05-17 14:56 | Outpatient (REF) | payer MEDICARE, SELFPAY ==
[2022-05-17 16:35] LABS: Anion Gap 15 (12-20); Blood Urea Nitrogen 58 mg/dL (9-16); Calcium 8.4 mg/dL (8.4-10.2); Carbon Dioxide 20 mmol/L (22-29); Chloride 107 mmol/L (96-108); Estimated Glomerular Filt Rate 20; Glucose Random 251 mg/dL (60-115); Potassium 4.7 mmol/L (3.3-5.1); Sodium 137 mmol/L (135-145)
[2022-05-17 16:47] LABS: B Type Natriuretic Peptide 36 pg/mL (<100)
== END 2022-05-17 14:57 | disposition home or self-care (01) ==
LOC: HO.LAB 14:56
PROVIDERS: PCP Hospitalist; Visit Provider Internal Medicine Cardiovascular Disease
DX: I50.9 Heart failure, unspecified (principal); I35.0 Nonrheumatic aortic (valve) stenosis
CPT/HCPCS: 36415; 80048; 83880; 99212

== ENCOUNTER → 2022-06-11 08:33 | Outpatient (REF) | payer MEDICARE, SELFPAY ==
--- NOTE | ~2022-06-11 | NM_ITS ---
Lexiscan Myocardial perfusion study Indication: Congestive heart failure, assess for coronary disease and ischemia Technique: The patient was brought in for a Lexiscan perfusion study on 06/11/2022 and was injected 0.4 mg of Lexiscan intravenously. Within a minute of this injection 40 mCi of sestamibi was given intravenously. Images were obtained using the SPECT gamma camera interlaced with the gating device. Images were obtained in supine position. Resting perfusion study was performed on 06/12/2022. Patient was administered 40 mCi of sestamibi intravenously at rest. Images were then obtained in supine position. Total DLP 158mGy-cm. Images were processed with the software and compared side to side in short axis, horizontal long axis and vertical long axis views. Findings: Raw acquisition reviewed The stress perfusion study showed diminished tracer uptake in the basal part of inferior wall. There is improvement with CT attenuation correction, suggestive of diaphragmatic attenuation artifact. The gated study shows low normal LV systolic function with calculated LVEF of 53%. LV cavity is normal in size. The gated study shows normal wall thickening and contraction of segments. Resting study shows no significant perfusion abnormality. Gating at rest reveals normal wall motion with ejection fraction at 58%. The findings are consistent with mild reversible basal inferior defect, suspected to be from diaphragmatic attenuation artifact. NM/NM lara perf SPECT rest & str Impression: 1. Myocardial perfusion imaging study shows no clear evidence of ischemia or infarction. Likely normal perfusion. 2. Gated LVEF is 53% during stress and 58% during rest. 3. Transient ischemic dilatation not present. EKG component of the test reported separately.
--- NOTE | 2022-06-11 08:35 | CA_ITS ---
Acquisition Time: 2022-06-11 08:46:25 Total Exercise Time: 00:02:00 Test Indications: I50.9 HEART FAILURE Medications: SEE H Protocol: LEXISCAN Max HR: 083 BPM 54% of Pred: 152 BPM Max BP: 134/072 mmHG Max Work Load: 1.0 METS Pharmacological stress test with Lexiscan injection, while sitting and kicking her legs, without anginal symptoms, without arrythmia, with normotensive response to injection, with nondiagnostic EKG for ischemia. In recovery she had nausea and dry heaves which were treated with Aminophylline 75mg IVP to reverse lexiscan with resolution of symptom. Nuclear images pending. Test reviewed with Dr Bliss. Referred By: Aidan Penn Overread By: MARLON ESCALANTE
== END ==
LOC: HO.CARD 08:33
PROVIDERS: Visit Provider Internal Medicine Cardiovascular Disease
DX: I50.9 Heart failure, unspecified (principal)
CPT/HCPCS: 78452; 93017; A9500; J0280; J2785

== ENCOUNTER → 2022-06-20 09:15 | Outpatient (REF) | payer MEDICARE, SELFPAY ==
--- NOTE | 2022-06-20 09:19 | CA_ITS ---
Transthoracic Echocardiogram Amended Patient (Last, First, Middle): Amaris Hook E Gender: Female Date of : 1955 Age: 67 Procedure Date: 06/20/2022 Procedure Type: Transthoracic Echocardiogram Location: OP Height: 157.48 cm Weight: 112.95 kg BSA: 2.10 m2 Heart Rate: 72 bpm BP: 165 / 90 mmHg Rn Embedded: PETR Referring MD: Aidan Penn MD Senior Applications Engineer: Aidan Penn MD Symptoms: I35.0 - Nonrheumatic aortic (valve) stenosis Study Quality: Fair ECG Rhythm: Sinus Conclusions: - 1. Normal LV systolic function with mild LVH with impaired relaxation filling pattern 2. Mild aortic stenosis and mitral regurgitation 3. Normal RV systolic pressure 4. Mildly dilated ascending aorta at 3.8 cm 5. No pericardial effusion Findings Left Ventricle Normal left ventricular size and systolic function. There is mildly increased left ventricular wall thickness. The visually estimated ejection fraction is between 55-60%. Spectral Doppler is indicative of an impaired relaxation filling pattern. E/E prime ratio is between 8 and 15 consistent with indeterminate filling pressures. Right Ventricle Normal right ventricular cavity size and systolic function. Atria The left atrium is mildly dilated. There is no evidence of interatrial shunt. The right atrium is normal in size. Aortic Valve There is mild calcification of the aortic valve. There is mild aortic valve stenosis. The peak aortic gradient is 17 mmHg.The mean gradient is 10 mmHg. The aortic valve area is 1.89 cm2. There is no aortic valve regurgitation. Mitral Valve There is mild anterior and posterior mitral leaflet thickening. There is mild mitral annular calcification. There is mild mitral valve regurgitation. There is no mitral valve stenosis. Pulmonic Valve The pulmonic valve was not well visualized. Tricuspid Valve Likely normal tricuspid valve structure and function. Tricuspid regurgitation envelope is inadequate for calculation of right ventricular systolic pressure. Normal right atrial pressure. Great Vessels The pulmonary artery was not well visualized. There is mild dilatation of the ascending aorta measuring 3.80 cm. Venous The inferior vena cava is normal in size and collapses greater than 50% with inspiration. Pericardium/Pleural There is no evidence of pericardial effusion. Prior Study Comparison Changes noted compared to prior study dated: 06/10/2021. ascending aorta is mildly dilated Measurements 2D Linear Measurements IVSd: 1.31 0.6-0.9/0.6-1.0 cm LVIDd: 5.06 3.9-5.3/4.2-5.9 cm LVIDd Index: 2.41 2.4-3.2/2.2-3.1 cm/m2 LVIDs: 3.23 2.0-3.6 cm LVPWd: 1.20 0.7-1.1 cm LA Diam: 3.80 2.7-3.8/3.0-4.0 cm LAIDs Index: 1.81 1.5-2.3 cm/m2 LV Mass: 316.41 67-162/88-224 g LV Mass Index: 150.67 43-95/49-115 g/m2 LVOT Diam: 2.20 3.0+(-)1.3 cm 2D Volumes LA Vol: 33.60 2D Systolic Function EF 4C: 54.80 >55% EF 2C: 58.00 >55% EF BiP: 58.30 >55% Mitral Valve MV Pk E: 1.10 MV PK A: 1.23 MV Decel Time: 177.00 E/A: 0.90 E'Lateral: 4.57 E'Medial: 4.57 E/E' Med: 24.10 E/E' Lat: 24.10 PHT: 52.00 MVA PHT: 4.23 Decel Sutter: 6.24 Aortic Valve AoV Pk Manny: 2.04 AoV Mn Manny: 1.45 AoV VTI: 0.53 AoV Pk Grad: 17.00 Aov Mn Grad: 10.00 MEIR Cont.VTI: 1.89 LVOT LVOT Pk Manny: 0.99 LVOT Mn Manny: 0.73 LVOT VTI: 0.26 LVOT Pk Grad: 4.00 LVOT Mn Grad: 2.00 LVOT Diam: 2.20 LVOT Area: 3.80 Diastolic Function MV Pk E: 1.10 MV Pk A: 1.23 E/A: 0.90 E'Medial: 4.57 E/E' Med: 24.10 E' Laterial: 4.57 E/E' Lat: 24.10 Right Ventricle TAPSE (mm): 30.60 TVS' Manny: 11.90 Tricuspid Valve RA Press: 3.00 Great Vessels Aorta Sinus of Valsalva: 3.30 2.0-3.5 cm Ao Asc: 3.80 2.1-3.4 cm Pulmonary Valve PV Pk Manny: 0.94 Peak PV Grad: 4.00 Updated in Other Vendor System with Status of Final Aidan Penn MD electronically signed on 06/22/2022 9:28:03 AM with status of Final
== END ==
LOC: HO.CARD 09:15
PROVIDERS: PCP Hospitalist; Visit Provider Internal Medicine Cardiovascular Disease
DX: I35.0 Nonrheumatic aortic (valve) stenosis (principal)
CPT/HCPCS: 93306

== ENCOUNTER → 2022-08-02 14:17 | Outpatient (BNVA) | payer MEDICARE, SELFPAY | PROVIDERS: PCP Hospitalist; Visit Provider Internal Medicine | DX: G47.33 Obstructive sleep apnea (adult) (pediatric) (principal); E66.01 Morbid (severe) obesity due to excess calories; G47.34 Idiopathic sleep related nonobstructive alveolar hypoventilation; Z99.81 Dependence on supplemental oxygen; Z68.41 Body mass index [BMI] 40.0-44.9, adult | CPT/HCPCS: 99212 ==

== ENCOUNTER → 2022-08-24 13:03 | Outpatient (BNVA) | payer MEDICARE, SELFPAY | PROVIDERS: PCP Hospitalist; Referring Provider Hospitalist; Visit Provider Internal Medicine Cardiovascular Disease | DX: I50.9 Heart failure, unspecified (principal); I35.0 Nonrheumatic aortic (valve) stenosis | CPT/HCPCS: 99212 ==

== ENCOUNTER 2022-08-30 07:43 | Outpatient (REF) | payer MEDICARE, SELFPAY ==
[2022-08-30 08:43] LABS: Alanine Aminotransferase 27 U/L (0-31); Albumin Level 3.5 g/dL (3.5-5.0); Alkaline Phosphatase 176 U/L (39-117); Anion Gap 17 (12-20); Aspartate Amino Transferase 20 U/L (5-31); Bilirubin Total 0.4 mg/dL (0.0-1.0); Blood Urea Nitrogen 47 mg/dL (9-16); Blood Urea Nitrogen 48 mg/dL (9-16); Calcium 8.9 mg/dL (8.4-10.2); Carbon Dioxide 23 mmol/L (22-29); Chloride 108 mmol/L (96-108); Cholesterol 155 mg/dL; Estimated Glomerular Filt Rate 24; Glucose Fasting 76 mg/dL (60-99); HDL Cholesterol 52 mg/dL; LDL Cholesterol Calculated 79 mg/dl; Potassium 4.7 mmol/L (3.3-5.1); Potassium 4.9 mmol/L (3.3-5.1); Sodium 143 mmol/L (135-145); Total Protein 6.4 g/dL (6.5-8.0); Triglycerides 120 mg/dL
[2022-08-30 09:04] LABS: TSH reflex Free T4 4.72 uIU/mL (0.32-4.0)
[2022-08-30 09:47] LABS: Free T4 (Free Thyroxine) 0.88 ng/dL (0.71-1.85)
[2022-09-05 11:47] LABS: Vitamin D 25-OH, D2 <4 ng/mL; Vitamin D 25-OH, D3 25 ng/mL; Vitamin D 25-OH, Total 25 ng/mL (30-100)
== END 2022-08-30 07:44 | disposition home or self-care (01) ==
LOC: HO.LAB 07:43
PROVIDERS: Internal Medicine Cardiovascular Disease; PCP Hospitalist; Visit Provider Hospitalist
DX: Z00.00 Encounter for general adult medical examination without abnormal findings (principal); I50.9 Heart failure, unspecified; R60.0 Localized edema; R53.83 Other fatigue
CPT/HCPCS: 36415; 80048; 80053; 80061; 82306; 84439; 84443

== ENCOUNTER 2022-09-12 11:11 | Inpatient (IN) | payer MEDICARE, SELFPAY ==
[2022-09-12] VITALS (21 sets, daily range): BP systolic 150–251; BP diastolic 61–159; PULSE 69–79; RESP 14–22; TEMP 36.6–37.3; O2SAT 89–99; BMI 43.0
--- NOTE | ~2022-09-12 | CT_ITS ---
CT ANGIOGRAM NECK WITH CONTRAST CT ANGIOGRAM BRAIN WITH CONTRAST CLINICAL INFORMATION: Aphasia. Neurologic deficit. COMPARISON: Head CT performed earlier the same day. TECHNIQUE: Test bolus sequences followed by intravenous administration 70 mL of Omnipaque 350. Helical imaging was performed in the axial plane from the thoracic inlet to the skull vertex. Delayed postcontrast imaging of the head was also performed. The data was processed at the nuclear medicine technologist workstation for generation of MIP sequences. Angled MIPs and volume rendered reformatted images were also generated at an offline 3D workstation under concurrent supervision. Stenoses are assessed in accordance with NASCET criteria unless otherwise indicated. This CT examination was performed using dose optimization techniques as appropriate, variously including the following: *Automated exposure control *Adjustment of mA and/or kV according to patient size (this includes techniques or standardized protocols for targeted exams where dose is matched to indication/reason for exam; i.e. extremities or head) *Use of iterative reconstruction technique FINDINGS: BRAIN: [Mild chronic microangiopathy. There is no intracranial hemorrhage, hydrocephalus, extra-axial surface collection, midline shift, or other herniation pattern. [place] to white matter differentiation is diffusely maintained without evidence of an evolved acute territorial infarct. The basilar cisterns are preserved. No significant soft tissue abnormality. No acute osseous abnormality. Pansinus disease with fluid levels that can be correlated for clinical signs of acute sinusitis. CERVICAL SOFT TISSUES AND LUNG APICES: Multilevel cervical spondylosis that is advanced at C5-C6 and C6-C7. NECK CTA: [There is a classic 3 vessel configuration of the aortic arch. Proximal arch vessels are non-stenotic. The vertebral arteries are codominant. No significant ostial stenosis is visualized on either side. Both vertebral arteries are widely patent throughout their extracranial cervical course. Both common carotid arteries are normal in course and caliber.] There is atherosclerotic calcification involving the carotid bifurcations bilaterally resulting in less than 50% stenoses of the proximal internal carotid arteries on both sides. Retropharyngeal course of the common carotid arteries bilaterally. BRAIN CTA: Atherosclerotic calcification throughout the carotid siphons bilaterally without significant stenosis. No focal flow-limiting stenosis nor discrete proximal large artery occlusion. No aneurysm. Timing of the contrast bolus allows assessment of the major dural venous sinuses, which all opacify normally] CT/CT angio head neck stroke IMPRESSION: - No acute intracranial findings. Mild chronic microangiopathy. - No acute arterial occlusions and no significant arterial stenoses within the head or neck. There is atherosclerotic calcification involving the carotid bifurcations bilaterally resulting in less than 50% stenoses of the proximal internal carotid arteries on both sides. Retropharyngeal course of the common carotid arteries bilaterally. - Multilevel cervical spondylosis that is advanced at C5-C6 and C6-C7. - Pansinus disease with fluid levels that can be correlated for clinical signs of acute sinusitis. Findings discussed with Dr. Lorena Casas at 12:12 PM on 09/12/2022.
--- NOTE | ~2022-09-12 | MR_ITS ---
MRI OF THE BRAIN WITHOUT IV CONTRAST INDICATION: Neurologic symptoms. COMPARISON: CT head and CTA head and neck 09/12/2022. TECHNIQUE: Multiplanar multisequence MR imaging of the brain was obtained without IV contrast. FINDINGS: Motion degraded MRI of the brain. There is no hydrocephalus, extra-axial surface collection, or herniation. There is mild chronic microangiopathy. The major flow voids at the skull base are preserved. There is no acute infarct on diffusion-weighted imaging. There is no intracranial hemorrhage on the gradient recalled echo acquisition. The midline structures are normal. The cerebellar tonsils are normally positioned. There are a few small chronic lacunar infarcts within the cerebellar hemispheres. The craniocervical junction is normal. Osseous marrow signal intensity is homogenous. The visualized soft tissues are unremarkable. Pansinus disease with fluid levels that can be correlated for clinical signs of acute sinusitis. MR/MR head/brain wo con IMPRESSION: - No acute intracranial findings. No acute infarcts. - There is mild chronic microangiopathy. There are a few small chronic lacunar infarcts within the cerebellar hemispheres. - Pansinus disease with fluid levels that can be correlated for clinical signs of acute sinusitis.
--- NOTE | ~2022-09-12 | CT_ITS ---
EXAMINATION: CT HEAD WITHOUT CONTRAST (STROKE PROTOCOL) CLINICAL INFORMATION: Stroke protocol. Aphasia. Visual disturbance. COMPARISON: None TECHNIQUE: Contiguous axial imaging was performed from the skull base to vertex without intravenous administration of contrast. This CT examination was performed using dose optimization techniques as appropriate, variously including the following: *Automated exposure control *Adjustment of mA and/or kV according to patient size (this includes techniques or standardized protocols for targeted exams where dose is matched to indication/reason for exam; i.e. extremities or head) *Use of iterative reconstruction technique DLP: 654 mGy-cm FINDINGS: There is no intracranial hemorrhage, hematoma, or extra-axial fluid collection. The ventricles are normal in size. There is no hydrocephalus, edema, or mass effect. The sosa-white matter differentiation appears well preserved . There is no visible acute territorial infarct or mass lesion. No appreciable dense vessel sign. Orbits unremarkable. Suprasellar cistern unremarkable. The calvarium appears intact. There is no pneumocephalus or orbital emphysema. There is mucosal thickening involving the ethmoid air cells, sphenoid, and maxillary sinuses. The middle ears and mastoid air cells appear clear. Results called to Dr. Casas in the emergency department at 12:[address]/CT head for stroke IMPRESSION: -No acute intracranial abnormality. -Mucosal thickening ethmoid, sphenoid, maxillary sinuses.
--- NOTE | ~2022-09-12 | XR_ITS ---
EXAMINATION: XR CHEST CLINICAL INFORMATION: Post right IJ line COMPARISON: 03/12/2022 TECHNIQUE: Frontal view of the chest was obtained. FINDINGS: Again seen is mild cardiomegaly. A right-sided IJ line is present with its tip in the mid SVC. No pneumothorax. No infiltrates, effusions or CHF. XR/XR chest 1V IMPRESSION: Right IJ line with tip in mid SVC. No acute intrathoracic disease.
--- NOTE | ~2022-09-12 | MR_ITS ---
EXAMINATION: MRV HEAD WITHOUT AND WITH CONTRAST CLINICAL INFORMATION: Acute right hemianopsia/right upper extremity weakness and dysphasia. COMPARISON: Brain MRI and head CTA 09/12/2022. TECHNIQUE: MRV of the head was performed without and with contrast. Maximum intensity projections were rendered and reviewed. A total of 10 mL Gadavist was intravenously administered. FINDINGS: The superior sagittal sinus is patent. The paired right transverse and sigmoid sinuses are patent with the left side being hypoplastic/nondominant. The straight sinus, vein of [place], and internal cerebral veins are patent. There is no mass effect or midline shift. Chronic lacunar infarcts are seen in the bilateral cerebellar hemispheres. No enhancing lesion. MR/MR venography head wo/w con IMPRESSION: No evidence of dural venous sinus thrombosis.
--- NOTE | 2022-09-12 11:19 | ECG_ITS ---
Test Reason : STROKE Blood Pressure : / mmHG Vent. Rate : 076 BPM Atrial Rate : 076 BPM P-R Int : 168 ms QRS Dur : 098 ms QT Int : 408 ms P-R-T Axes : 030 012 084 degrees QTc Int : 459 ms Normal sinus rhythm Possible Left atrial enlargement Left ventricular hypertrophy ( R in aVL , [place] product ) Nonspecific ST and T wave abnormality Intra-ventricular conduction delay Abnormal ECG When compared with ECG of 12-MAR-2022 16:46, No significant change was found Referred By: Lorena Casas Electronically Signed By:AMBER BUSH MD
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
[2022-09-12 11:28] LABS: Glucose, Whole Blood 512 mg/dL (60-115)
[2022-09-12 11:30] LABS: MANUAL DIFF FLAG NO
[2022-09-12 11:33] LABS: ~PT, ~INR - Anti Coag Clinic 0.9 (0.9-1.1)
[2022-09-12 11:37] LABS: Basophils Absolute Auto 0.1 X10*3/uL (0.0-0.2); Basophils Percent Auto 0.6 % (0-2); Eosinophils Absolute Auto 0.1 X10*3/uL (0.0-0.4); Eosinophils Percent Auto 0.8 % (0-4); Hematocrit 35.9 % (37.0-47.0); Hemoglobin 11.8 g/dl (12.0-16.0); Imm Gran Abs Auto 0.07 X10*3/uL (0.00-0.03); Imm Gran Pct Auto 0.5 % (0.0-0.4); Lymphocytes Absolute Auto 1.2 X10*3/uL (1.2-4.9); Lymphocytes Percent Auto 9.4 % (20-40); Mean Corpuscular HGB Conc 32.9 g/dl (31.0-35.0); Mean Corpuscular Hemoglobin 28.9 pg (27.0-33.0); Mean Corpuscular Volume 87.8 fL (80.0-98.0); Mean Platelet Volume 10.4 fL (9.4-12.3); Monocytes Absolute Auto 0.5 X10*3/uL (0.1-1.2); Monocytes Percent Auto 3.6 % (2-11); Neutrophils Absolute Auto 11.1 x10*3/uL (2.0-8.3); Neutrophils Percent Auto 85.1 % (45-73); Platelet Count 399 X10*3/uL (160-400); Red Blood Count 4.09 X10*6/uL (4.20-5.50); White Blood Count 13.1 X10*3/uL (4.8-10.8)
[2022-09-12 11:38] LABS: INTERNATIONAL NORM RATIO 0.9 (0.9-1.1); Prothrombin Time 10.8 SEC (10.0-13.1)
[2022-09-12 11:41] LABS: Partial Thromboplastin Time 30.2 SEC (26.0-36.4); Stroke Lab Use COMPLETE
[2022-09-12 11:48] LABS: Acetone, serum QL Negative (Negative)
[2022-09-12] MEDS: iohexoL 350 MG/ML 100 ML INFUS..BTL IV (11:48)
[2022-09-12] MEDS: Insulin Lispro 100 UNIT/ML 3 ML VIAL 10 UNIT SUBCUT (11:49)
[2022-09-12 11:53] LABS: Troponin-I High Sensitivity 10.9 ng/L (<3.5-17.0)
[2022-09-12 11:54] LABS: Anion Gap 19 (12-20); Blood Urea Nitrogen 51 mg/dL (9-16); Calcium 8.7 mg/dL (8.4-10.2); Carbon Dioxide 19 mmol/L (22-29); Chloride 97 mmol/L (96-108); Creatinine Clr Calc Pharmacy 24.7; Estimated Glomerular Filt Rate 19; Glucose Random 631 mg/dL (60-115); Potassium 4.8 mmol/L (3.3-5.1); Sodium 130 mmol/L (135-145)
[2022-09-12 12:39] LABS: Alanine Aminotransferase 34 U/L (0-31); Albumin Level 3.5 g/dL (3.5-5.0); Alkaline Phosphatase 235 U/L (39-117); Aspartate Amino Transferase 18 U/L (5-31); Bilirubin Direct 0.2 mg/dL (0.0-0.5); Bilirubin Total 0.4 mg/dL (0.0-1.0); Total Protein 6.6 g/dL (6.5-8.0)
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
[2022-09-12 12:59] LABS: Glucose, Whole Blood 494 mg/dL (60-115)
[2022-09-12 12:59] LABS: Glucose, Whole Blood 512 mg/dL (60-115)
[2022-09-12] MEDS: 0.9 % Sodium Chloride 1,000 ML 999 ML IV (13:04)
[2022-09-12] MEDS: Labetalol HCL 100 MG/20 ML VIAL IVPUSH ×4 (13:04→15:46)
[2022-09-12] MEDS: ondansetron HCL 4 MG/2 ML VIAL IVPUSH (13:05)
[2022-09-12 13:13] LABS: Lactic Acid 1.8 mmol/L (0.5-2.0)
[2022-09-12 13:14] LABS: COVID-19 Test Negative (Negative); IDNOW Serial# 16C4AD1C
[2022-09-12] MEDS: carvediloL 6.25 MG TABLET PO (13:53)
[2022-09-12] MEDS: Furosemide 40 MG TABLET PO (13:53)
[2022-09-12] MEDS: carvediloL 3.125 MG TABLET PO (13:54)
[2022-09-12] MEDS: hydrALAZINE HCl 20 MG/ML VIAL 2.5 MG IVPUSH (13:54)
[2022-09-12 13:57] LABS: Appearance Urine Clear; Color Urine Yellow; Glucose Urine UA >=1000 mg/dL (Negative); Leukocyte Esterase Urine Negative (Negative); Nitrite Urine Negative (Negative); Specific Gravity - Urine 1.025 (1.005-1.025); UMIC TRIGGER UACC YES; Urine Blood Trace (Negative); Urine Ketones Negative (Negative); Urine Protein 300 (3+) mg/dL (Neg-Trace)
[2022-09-12 14:02] LABS: Bacteria Urine None Seen (None Seen); Hyaline Casts Urine 0-2 /LPF (0-2); RBC Urine 0-2 /HPF (0-2); Squamous Epithelial Cell Urine 0-2 /HPF (0-2); WBC Urine 0-5 /HPF (0-5)
--- NOTE | 2022-09-12 14:09 | PHA.MEDREC ---
Pharmacy Consult ? Medication Reconciliation Pharmacy has completed the medication reconciliation. Daughter had list of medications that match claim history. Patient believe she is taking carvedilol 6.25 mg 1.5 tablets but unsure due to AMS. Deandra Avalos, RodD
[2022-09-12 14:44] LABS: Glucose, Whole Blood 378 mg/dL (60-115)
--- NOTE | 2022-09-12 16:24 | PM.CCHP ---
History of Present Illness Date of Service: 09/12/22 Attending physician on admission: Nelida Ford Chief Complaint: Altered mental status 67-year-old morbidly obese type 2 diabetic and hypertensive and hyperlipidemic but no vascular history presents with acute hypertension and what was thought to be altered mental status but on my conversation with her and it seems that she is dysphasic and has lack of spontaneous movement of the right upper extremity and on confrontation has no response to anything approaching the right side implying a right-sided hemianopsia She is awake and seems to understand with blood pressures certainly in excess of 210 systolic but with precipitous drops to homeopathic doses of IV labetalol and because of the focal nature of these neurological issues I fear at least a threatened ischemia even though the MRI shows no evidence of infarct nor does the CTA of the intracranial and extracranial vessels Bedside echo shows normal LV and RV size and function all 4 chambers normal no primary valve or pericardial disease Good bilateral carotid upstrokes with no bruits no neck vein distension no thyromegaly no adenopathy and pulses are symmetric Review of Systems Review of Systems: Yes all other systems are reviewed and are negative [facility] Past Medical History Medical History (Updated 09/12/22 @ 16:31 by Nelida Ford MD) Anemia Bilateral lower extremity edema Chronic renal failure Congestive heart failure Diabetes type 2, uncontrolled High cholesterol Hypertension, essential Morbid obesity Nocturnal hypoxemia Obesity AMY (obstructive sleep apnea) Pneumonia Family History Family History Father Stroke Mother Stroke Hypertension Diabetes Maternal Grandmother Diabetes Hypertension Stroke Sister Diabetes Breast cancer Son Bipolar 1 disorder Overweight Other Mental health problem Substance abuse Surgical History Surgical History History of D&C History of surgery Social History Social History Household Members: Family Housing: House Do you presently have visiting nurse or other home services: No Alcohol intake: current Alcohol intake frequency: holidays/special occasions only Patient Tobacco Use Status: Never used Tobacco Smoked in Last 30 Days: No e-Cigarette/Vaping Use: Never Used Use of substances other than those prescribed or required for medical reasons: No Advance Directives: Yes Advance Directives on File: Yes Advance Directives Date on File: 06/09/21 service: No Current occupational status: employed Cognitive needs: No Hearing needs: No Vision needs: Yes Meds Allergies Allergy/AdvReac Type Severity Reaction Status Date / Time penicillin V Allergy Severe joint Verified 09/12/22 09:32 swelling and rash Active Medications: Current Medications Aspirin (Aspirin 81 Mg Tab.Chew) 81 mg PO DAILY [facility] Atorvastatin Calcium (Atorvastatin Calcium 80 Mg Tablet) 80 mg PO DAILY [facility] Dextrose (Dextrose 50 % 25 Gm/50 Ml Syringe) 25 gm IVPUSH Q15M PRN; Protocol PRN Reason: per Hypoglycemia Standing Ord. Glucose (Glucose Gel 15 Gm Gel..Gram.) 15 gm PO Q15M PRN; Protocol PRN Reason: per Hypoglycemia Standing Ord. Heparin Sodium (Porcine) (Heparin Sodium,Porcine 5,000 Unit/Ml Vial) 5,000 unit SUBCUT Q8H [facility] Nicardipine HCl 25 mg/ Sodium (Chloride) 260 mls @ 0 mls/hr IVCONT .Q0M LORRIE; Protocol Pantoprazole Sodium 40 mg/ (Sodium Chloride) 110 mls @ 400 mls/hr IV DAILY@0630 [facility] Insulin Human Lispro (Insulin Lispro 100 Unit/Ml 3 Ml Vial) 0 unit SUBCUT Q6H [facility]; Protocol Stop: 09/13/22 16:20 Pharmacy Consult (Consult Rx Perform Med Rec) 1 each MISCELLANE ONCE PRN PRN Reason: Consult order Home Medications Medication Instructions Recorded Confirmed Last Taken Type ascorbic acid (vitamin C) 500 mg 500 mg PO DAILY 09/22/20 09/12/22 09/11/22 History tablet fexofenadine 180 mg tablet 180 mg PO DAILY 09/22/20 09/12/22 09/11/22 History furosemide 40 mg tablet 40 mg PO DAILY 08/02/22 09/12/22 09/11/22 History carvedilol 6.25 mg tablet 1.5 tab PO BID 09/12/22 09/12/22 09/11/22 History insulin lispro 100 unit/mL 0 sliding scale dose subcut QIDACHS 09/12/22 09/12/22 09/11/22 History subcutaneous pen multivitamin 1 tab PO DAILY 09/12/22 09/12/22 09/11/22 History Physical Exam Vital Signs: Vital Signs: Last Vital Signs Temp 97.9 F 09/12/22 12:42 Pulse 69 09/12/22 15:47 Resp 14 09/12/22 15:47 BP 228/104 H 09/12/22 15:47 Pulse Ox 97 09/12/22 13:52 O2 Del Method 09/12/22 13:52 BMI result Body Mass Index 43.0 As above she is awake but has expressive dysphagia it she does make an attempt at responding to a command or to a question but has decreased spontaneity of movement of the right upper extremity probable right hemianopsia because she lacks response to confrontation on the right and is clearly dysphasic Bedside echo with normal LV and RV function Chest is clear without adventitious sounds Abdomen benign positive bowel sounds no organomegaly No edema and skin otherwise intact Results Labs CBC and Chem 7: 09/12/22 11:20 09/12/22 11:20 Labs: Laboratory Results - last 24 hr 09/12/22 09/12/22 09/12/22 11:20 11:20 11:20 MCV 87.8 MCH 28.9 MCHC 32.9 RDW 13.0 Plt Count 399 MPV 10.4 Immature Gran % (Auto) 0.5 H Neut % (Auto) 85.1 H Lymph % (Auto) 9.4 L [place] % (Auto) 3.6 Eos % (Auto) 0.8 Baso % (Auto) 0.6 Lymph # (Auto) 1.2 [place] # (Auto) 0.5 Eos # (Auto) 0.1 Baso # (Auto) 0.1 Abs Immat Gran (auto) 0.07 H Absolute Neuts (auto) 11.1 H Absolute Nucleated RBC 0.000 Nucleated RBC % (auto) 0.0 PT 10.8 Whole Blood PT INR 0.9 Whole Blood INR APTT 30.2 Anion Gap 19 Estim Creat Clear Calc 24.7 Estimated GFR 19 POC Glucose Random Glucose 631 H* D Lactic Acid Calcium 8.7 Total Bilirubin 0.4 Direct Bilirubin 0.2 AST 18 ALT 34 H Alkaline Phosphatase 235 H D Total Creatine Kinase 105 Troponin I High Sens Total Protein 6.6 Albumin 3.5 Urine Color Urine Appearance Urine pH Ur Specific Melvin Urine Protein Urine Glucose (UA) Urine Ketones Urine Blood Urine Nitrite Ur Leukocyte Esterase Urine RBC Urine WBC Ur Squamous Epith Cells Urine Bacteria Hyaline Casts Acetone, Qual COVID-19 (LUIS) COVID-19 Clin Com 09/12/22 09/12/22 09/12/22 11:20 11:20 11:25 MCV MCH MCHC RDW Plt Count MPV Immature Gran % (Auto) Neut % (Auto) Lymph % (Auto) [place] % (Auto) Eos % (Auto) Baso % (Auto) Lymph # (Auto) [place] # (Auto) Eos # (Auto) Baso # (Auto) Abs Immat Gran (auto) Absolute Neuts (auto) Absolute Nucleated RBC Nucleated RBC % (auto) PT Whole Blood PT INR Whole Blood INR APTT Anion Gap Estim Creat Clear Calc Estimated GFR POC Glucose 512 H* Random Glucose Lactic Acid Calcium Total Bilirubin Direct Bilirubin AST ALT Alkaline Phosphatase Total Creatine Kinase Troponin I High Sens 10.9 Total Protein Albumin Urine Color Urine Appearance Urine pH Ur Specific Melvin Urine Protein Urine Glucose (UA) Urine Ketones Urine Blood Urine Nitrite Ur Leukocyte Esterase Urine RBC Urine WBC Ur Squamous Epith Cells Urine Bacteria Hyaline Casts Acetone, Qual Negative COVID-19 (LUIS) COVID-[employer] 09/12/22 09/12/22 09/12/22 11:25 12:34 12:38 MCV MCH MCHC RDW Plt Count MPV Immature Gran % (Auto) Neut % (Auto) Lymph % (Auto) [place] % (Auto) Eos % (Auto) Baso % (Auto) Lymph # (Auto) [place] # (Auto) Eos # (Auto) Baso # (Auto) Abs Immat Gran (auto) Absolute Neuts (auto) Absolute Nucleated RBC Nucleated RBC % (auto) PT Whole Blood PT 11.0 L INR Whole Blood INR 0.9 APTT Anion Gap Estim Creat Clear Calc Estimated GFR POC Glucose 512 H* 494 H* Random Glucose Lactic Acid Calcium Total Bilirubin Direct Bilirubin AST ALT Alkaline Phosphatase Total Creatine Kinase Troponin I High Sens Total Protein Albumin Urine Color Urine Appearance Urine pH Ur Specific Melvin Urine Protein Urine Glucose (UA) Urine Ketones Urine Blood Urine Nitrite Ur Leukocyte Esterase Urine RBC Urine WBC Ur Squamous Epith Cells Urine Bacteria Hyaline Casts Acetone, Qual COVID-19 (LUIS) COVID-[employer] Com 09/12/22 09/12/22 09/12/22 12:42 12:54 13:32 MCV MCH MCHC RDW Plt Count MPV Immature Gran % (Auto) Neut % (Auto) Lymph % (Auto) [place] % (Auto) Eos % (Auto) Baso % (Auto) Lymph # (Auto) [place] # (Auto) Eos # (Auto) Baso # (Auto) Abs Immat Gran (auto) Absolute Neuts (auto) Absolute Nucleated RBC Nucleated RBC % (auto) PT Whole Blood PT INR Whole Blood INR APTT Anion Gap Estim Creat Clear Calc Estimated GFR POC Glucose Random Glucose Lactic Acid 1.8 Calcium Total Bilirubin Direct Bilirubin AST ALT Alkaline Phosphatase Total Creatine Kinase Troponin I High Sens Total Protein Albumin Urine Color Yellow Urine Appearance Clear Urine pH 7.0 Ur Specific Melvin 1.025 Urine Protein 300 (3+) H Urine Glucose (UA) >=1000 H Urine Ketones Negative Urine Blood Trace H Urine Nitrite Negative Ur Leukocyte Esterase Negative Urine RBC 0-2 Urine WBC 0-5 Ur Squamous Epith Cells 0-2 Urine Bacteria None Seen Hyaline Casts 0-2 Acetone, Qual COVID-19 (LUIS) Negative COVID-19 Clin Com See Note 09/12/22 14:39 MCV MCH MCHC RDW Plt Count MPV Immature Gran % (Auto) Neut % (Auto) Lymph % (Auto) [place] % (Auto) Eos % (Auto) Baso % (Auto) Lymph # (Auto) [place] # (Auto) Eos # (Auto) Baso # (Auto) Abs Immat Gran (auto) Absolute Neuts (auto) Absolute Nucleated RBC Nucleated RBC % (auto) PT Whole Blood PT INR Whole Blood INR APTT Anion Gap Estim Creat Clear Calc Estimated GFR POC Glucose 378 H* Random Glucose Lactic Acid Calcium Total Bilirubin Direct Bilirubin AST ALT Alkaline Phosphatase Total Creatine Kinase Troponin I High Sens Total Protein Albumin Urine Color Urine Appearance Urine pH Ur Specific Melvin Urine Protein Urine Glucose (UA) Urine Ketones Urine Blood Urine Nitrite Ur Leukocyte Esterase Urine RBC Urine WBC Ur Squamous Epith Cells Urine Bacteria Hyaline Casts Acetone, Qual COVID-19 (LUIS) COVID-19 Clin Com Imaging Radiologist's Impressions: Impressions Head CT 09/12/22 11:31 IMPRESSION: -No acute intracranial abnormality. -Mucosal thickening ethmoid, sphenoid, maxillary sinuses. Head/Neck CTA 09/12/22 11:47 IMPRESSION: - No acute intracranial findings. Mild chronic microangiopathy. - No acute arterial occlusions and no significant arterial stenoses within the head or neck. There is atherosclerotic calcification involving the carotid bifurcations bilaterally resulting in less than 50% stenoses of the proximal internal carotid arteries on both sides. Retropharyngeal course of the common carotid arteries bilaterally. - Multilevel cervical spondylosis that is advanced at C5-C6 and C6-C7. - Pansinus disease with fluid levels that can be correlated for clinical signs of acute sinusitis. Findings discussed with Dr. Lorena Casas at 12:12 PM on 09/12/2022. Brain MRI 09/12/22 12:20 IMPRESSION: - No acute intracranial findings. No acute infarcts. - There is mild chronic microangiopathy. There are a few small chronic lacunar infarcts within the cerebellar hemispheres. - Pansinus disease with fluid levels that can be correlated for clinical signs of acute sinusitis. Assessment and Plan (1) Hypertensive crisis: Status: Acute (2) Hyperglycemia: Status: Acute (3) Altered mental status: Status: Acute (4) Vision changes: Status: Acute (5) Hypertensive encephalopathy: Status: Acute (6) Elevated liver enzymes: Status: Acute (7) Vitamin D deficiency: Status: Acute (8) Fatigue: Status: Acute (9) Secondary aldosteronism: Status: Acute (10) Acute renal failure: Status: Acute (11) Diabetes type 2, controlled: Status: Acute (12) Morbid obesity due to excess calories: Status: Acute (13) AMY (obstructive sleep apnea): Status: Acute (14) Chronic renal failure: Status: Acute (15) Cerebral ischemia: Status: Acute Plan At this point there is no apparent metabolic issue contributing to this even though we do not see evidence of an ischemic infarct so it brings up a possibilities such as cerebral venous thrombosis as a possibility or some other under on for seen metabolic issue possibly hypercapnia which will look for but she has less encephalopathic and more focal implying in a left cortical dysfunction so on going to start her on aspirin and just subcutaneous heparin and just gently control her pressure keeping it 160-180 at this point possibly some repeat imaging in the morning and observe for paroxysmal atrial fibrillation but under send off a medical hypercoagulable workup and I do not want to give her more contrast to look for a venous phase problem today with given the chronic stage III level of renal failure that she has so we might have to re-evaluate that in the morning but in the interim I am considering Mosher anticoagulation
[2022-09-12] MEDS: niCARdipine HCL 25 MG in 0.9 % Sodium Chloride 250 ML 52 MG IVCONT (17:33)
[2022-09-12 17:43] LABS: Glucose, Whole Blood 368 mg/dL (60-115)
[2022-09-12] MEDS: Atorvastatin Calcium 80 MG TABLET PO (18:05)
[2022-09-12] MEDS: Aspirin 81 MG TAB.CHEW PO (18:05)
[2022-09-12] MEDS: Heparin Sodium,Porcine 5,000 UNIT/ML VIAL 5000 UNIT SUBCUT (18:05)
[2022-09-12 19:32] LABS: Glucose, Whole Blood 392 mg/dL (60-115)
[2022-09-12] MEDS: Insulin Lispro 100 UNIT/ML 3 ML VIAL SUBCUT ×2 (19:54→23:47)
[2022-09-12 20:59] LABS: Glucose, Whole Blood 352 mg/dL (60-115)
[2022-09-12 23:50] LABS: Glucose, Whole Blood 253 mg/dL (60-115)
[2022-09-13] VITALS (18 sets, daily range): BP systolic 132–158; BP diastolic 56–81; PULSE 58–75; RESP 12–21; TEMP 36.5–37.1; O2SAT 90–99; BMI 40.9
[2022-09-13] MEDS: Heparin Sodium,Porcine 5,000 UNIT/ML VIAL 5000 UNIT SUBCUT ×3 (02:16→17:59)
--- NOTE | 2022-09-13 02:31 | PC.NURSE ---
CARE ASSUMED 23:15...CARDENE DRIP RESUMED AT 2 MG/HR FOR SBP 180'S...SBP 130'S-150'S POST-RESUMPTION..NAPPING..EASILY AROUSED..ALERT..CONVERSES..OCASSIONALLY HUNTS FOR WORDS..REPOSITIONS SELF IN BED..REMAINS WITH RIGHT ARM WEAKER THAN LEFT...RIGHT PERIPHERAL VISION DEFICIT..DENIES PAIN OR HEADACHE..BROWN YELLOW URINE..PER SHIFT REPORT BROWN PLACED FOR URINARY RETENTION..RESTFUL...SLEEP APNEA RESPIRATORY PATTERN WHEN ASLEEP...SAO2 92-94% ON ROOM AIR AND TRANSIENT DROPS TO 85-86%..ASYMPTOMATIC WHEN AWAKENED..DR BERNSTEIN PRESENT AND UPDATED...FOR 4AM VBG AND COAGULATION PANEL PER MD...NSR NO ECTOPY
[2022-09-13] MEDS: Insulin Lispro 100 UNIT/ML 3 ML VIAL SUBCUT ×4 (04:03→20:33)
[2022-09-13] MEDS: niCARdipine HCL 25 MG in 0.9 % Sodium Chloride 250 ML 20.8 MG IVCONT (04:07)
[2022-09-13 04:08] LABS: Glucose, Whole Blood 242 mg/dL (60-115)
[2022-09-13 04:29] LABS: VBG Base Excess -1.9 mmol/L; VBG HCO3 22 mmol/L (22-26); VBG pCO2 37 mmHg; VBG pH 7.38 (7.32-7.43); VBG pO2 40 mmHg
[2022-09-13 04:35] LABS: Venous Blood Gas Refer to POC result
[2022-09-13 04:36] LABS: MANUAL DIFF FLAG NO
[2022-09-13 04:40] LABS: Basophils Absolute Auto 0.1 X10*3/uL (0.0-0.2); Basophils Percent Auto 0.5 % (0-2); Eosinophils Absolute Auto 0.1 X10*3/uL (0.0-0.4); Eosinophils Percent Auto 0.7 % (0-4); Hematocrit 33.5 % (37.0-47.0); Hemoglobin 10.9 g/dl (12.0-16.0); Imm Gran Abs Auto 0.06 X10*3/uL (0.00-0.03); Imm Gran Pct Auto 0.4 % (0.0-0.4); Lymphocytes Absolute Auto 1.7 X10*3/uL (1.2-4.9); Lymphocytes Percent Auto 11.2 % (20-40); Mean Corpuscular HGB Conc 32.5 g/dl (31.0-35.0); Mean Corpuscular Hemoglobin 28.3 pg (27.0-33.0); Monocytes Absolute Auto 0.8 X10*3/uL (0.1-1.2); Monocytes Percent Auto 5.7 % (2-11); Neutrophils Percent Auto 81.5 % (45-73); Platelet Count 384 X10*3/uL (160-400); Red Blood Count 3.85 X10*6/uL (4.20-5.50); Red Cell Distribution Width 13.2 % (11.0-16.0); White Blood Count 14.7 X10*3/uL (4.8-10.8)
[2022-09-13 04:46] LABS: Prothrombin Time 11.5 SEC (10.0-13.1)
[2022-09-13 04:48] LABS: Partial Thromboplastin Time 28.2 SEC (26.0-36.4)
[2022-09-13 05:05] LABS: Alanine Aminotransferase 24 U/L (0-31); Alkaline Phosphatase 160 U/L (39-117); Anion Gap 16 (12-20); Aspartate Amino Transferase 14 U/L (5-31); Bilirubin Total 0.3 mg/dL (0.0-1.0); Blood Urea Nitrogen 44 mg/dL (9-16); Calcium 8.4 mg/dL (8.4-10.2); Carbon Dioxide 21 mmol/L (22-29); Chloride 103 mmol/L (96-108); Creatinine Clr Calc Pharmacy 28.2; Estimated Glomerular Filt Rate 22; Glucose Random 261 mg/dL (60-115); Potassium 4.1 mmol/L (3.3-5.1); Sodium 136 mmol/L (135-145); Total Protein 5.7 g/dL (6.5-8.0)
[2022-09-13] MEDS: Pantoprazole Sodium 40 MG in 0.9 % Sodium Chloride 100 ML 400 MG IV (05:52)
[2022-09-13 07:25] LABS: Glucose, Whole Blood 203 mg/dL (60-115)
[2022-09-13] MEDS: Aspirin 81 MG TAB.CHEW PO (08:03)
[2022-09-13] MEDS: Atorvastatin Calcium 80 MG TABLET PO (08:04)
--- NOTE | 2022-09-13 09:04 | PM.CCPN ---
Subjective Subjective Date of Service: 09/13/22 Interval History: 67-year-old hypertensive hyperlipidemic and type 2 diabetic obese female with BMI of 41 no prior history of any clotting events presented with what I felt were focal neurologic findings of right-sided hemianopsia possibly even some denial of the right side but right upper extremity lack of spontaneous movement and dysphagia which and a lot of this seems to have improved except for degree of the hemianopsia today but her language is markedly improved much more awake and alert and sinus rhythm with pressures running anywhere between 140 and 155 systolic and this was on the Cardene drip and we have now exchanged that off and replacing it with oral Coreg which she was taking at home and will build on that slowly because my concerns really without the blood pressure was secondary but there was a separate primary phenomenon which gave her focal neurologic findings and I have concerns for Yo cerebral venous thrombosis and I am considering sending her for an MR V today Renal function numbers are somewhat improved compared to yesterday bedside echo showing normal LV function and she unequivocally does not have significant aortic stenosis Critical Care Time (minutes): 45 Physical Exam Vital Signs: Vital Signs: Last Vital Signs Temp 98.7 F 09/13/22 08:00 Pulse 72 09/13/22 09:00 Resp 19 09/13/22 09:00 BP 145/66 H 09/13/22 09:00 Pulse Ox 95 09/13/22 09:00 O2 Del Method 09/13/22 09:00 O2 Flow Rate 2 09/13/22 09:00 BMI result Body Mass Index 40.9 Much better right upper extremity strength and coordination cognitively more alert oriented x2 last night it was just x1 and definitely improvement in language but the right hemifield problem still I believe exists Bedside echo showing normal LV function Abdomen soft with no organomegaly Lungs clear bilaterally with no adventitious sounds Objective Data Labs 09/13/22 04:11 09/13/22 04:11 Labs: Laboratory Results - last 24 hr 09/12/22 09/12/22 09/12/22 11:20 11:20 11:20 WBC 13.1 H RBC 4.09 L Hgb 11.8 L Hct 35.9 L MCV 87.8 MCH 28.9 MCHC 32.9 RDW 13.0 Plt Count 399 MPV 10.4 Immature Gran % (Auto) 0.5 H Neut % (Auto) 85.1 H Lymph % (Auto) 9.4 L Frio % (Auto) 3.6 Eos % (Auto) 0.8 Baso % (Auto) 0.6 Lymph # (Auto) 1.2 Frio # (Auto) 0.5 Eos # (Auto) 0.1 Baso # (Auto) 0.1 Abs Immat Gran (auto) 0.07 H Absolute Neuts (auto) 11.1 H Absolute Nucleated RBC 0.000 Nucleated RBC % (auto) 0.0 PT 10.8 Whole Blood PT INR 0.9 Whole Blood INR APTT 30.2 VBG pH VBG pCO2 VBG pO2 VBG HCO3 VBG O2 Saturation VBG Base Excess Sodium 130 L Potassium 4.8 Chloride 97 Carbon Dioxide 19 L Anion Gap 19 BUN 51 H Creatinine 2.50 H Estim Creat Clear Calc 24.7 Estimated GFR 19 POC Glucose Random Glucose 631 H* D Lactic Acid Calcium 8.7 Total Bilirubin 0.4 Direct Bilirubin 0.2 AST 18 ALT 34 H Alkaline Phosphatase 235 H D Total Creatine Kinase 105 Troponin I High Sens Total Protein 6.6 Albumin 3.5 Urine Color Urine Appearance Urine pH Ur Specific [place] Urine Protein Urine Glucose (UA) Urine Ketones Urine Blood Urine Nitrite Ur Leukocyte Esterase Urine RBC Urine WBC Ur Squamous Epith Cells Urine Bacteria Hyaline Casts Acetone, Qual COVID-19 ([facility]) COVID-19 Clin Com 09/12/22 09/12/22 09/12/22 11:20 11:20 11:25 WBC RBC Hgb Hct MCV MCH MCHC RDW Plt Count MPV Immature Gran % (Auto) Neut % (Auto) Lymph % (Auto) Frio % (Auto) Eos % (Auto) Baso % (Auto) Lymph # (Auto) Frio # (Auto) Eos # (Auto) Baso # (Auto) Abs Immat Gran (auto) Absolute Neuts (auto) Absolute Nucleated RBC Nucleated RBC % (auto) PT Whole Blood PT INR Whole Blood INR APTT VBG pH VBG pCO2 VBG pO2 VBG HCO3 VBG O2 Saturation VBG Base Excess Sodium Potassium Chloride Carbon Dioxide Anion Gap BUN Creatinine Estim Creat Clear Calc Estimated GFR POC Glucose 512 H* Random Glucose Lactic Acid Calcium Total Bilirubin Direct Bilirubin AST ALT Alkaline Phosphatase Total Creatine Kinase Troponin I High Sens 10.9 Total Protein Albumin Urine Color Urine Appearance Urine pH Ur Specific [place] Urine Protein Urine Glucose (UA) Urine Ketones Urine Blood Urine Nitrite Ur Leukocyte Esterase Urine RBC Urine WBC Ur Squamous Epith Cells Urine Bacteria Hyaline Casts Acetone, Qual Negative COVID-19 ([facility]) COVID-19 Clin Com 09/12/22 09/12/22 09/12/22 11:25 12:34 12:38 WBC RBC Hgb Hct MCV MCH MCHC RDW Plt Count MPV Immature Gran % (Auto) Neut % (Auto) Lymph % (Auto) Frio % (Auto) Eos % (Auto) Baso % (Auto) Lymph # (Auto) Frio # (Auto) Eos # (Auto) Baso # (Auto) Abs Immat Gran (auto) Absolute Neuts (auto) Absolute Nucleated RBC Nucleated RBC % (auto) PT Whole Blood PT 11.0 L INR Whole Blood INR 0.9 APTT VBG pH VBG pCO2 VBG pO2 VBG HCO3 VBG O2 Saturation VBG Base Excess Sodium Potassium Chloride Carbon Dioxide Anion Gap BUN Creatinine Estim Creat Clear Calc Estimated GFR POC Glucose 512 H* 494 H* Random Glucose Lactic Acid Calcium Total Bilirubin Direct Bilirubin AST ALT Alkaline Phosphatase Total Creatine Kinase Troponin I High Sens Total Protein Albumin Urine Color Urine Appearance Urine pH Ur Specific [place] Urine Protein Urine Glucose (UA) Urine Ketones Urine Blood Urine Nitrite Ur Leukocyte Esterase Urine RBC Urine WBC Ur Squamous Epith Cells Urine Bacteria Hyaline Casts Acetone, Qual COVID-19 ([facility]) COVID-19 Clin Com 09/12/22 09/12/22 09/12/22 12:42 12:54 13:32 WBC RBC Hgb Hct MCV MCH MCHC RDW Plt Count MPV Immature Gran % (Auto) Neut % (Auto) Lymph % (Auto) Frio % (Auto) Eos % (Auto) Baso % (Auto) Lymph # (Auto) Frio # (Auto) Eos # (Auto) Baso # (Auto) Abs Immat Gran (auto) Absolute Neuts (auto) Absolute Nucleated RBC Nucleated RBC % (auto) PT Whole Blood PT INR Whole Blood INR APTT VBG pH VBG pCO2 VBG pO2 VBG HCO3 VBG O2 Saturation VBG Base Excess Sodium Potassium Chloride Carbon Dioxide Anion Gap BUN Creatinine Estim Creat Clear Calc Estimated GFR POC Glucose Random Glucose Lactic Acid 1.8 Calcium Total Bilirubin Direct Bilirubin AST ALT Alkaline Phosphatase Total Creatine Kinase Troponin I High Sens Total Protein Albumin Urine Color Yellow Urine Appearance Clear Urine pH 7.0 Ur Specific [place] 1.025 Urine Protein 300 (3+) H Urine Glucose (UA) >=1000 H Urine Ketones Negative Urine Blood Trace H Urine Nitrite Negative Ur Leukocyte Esterase Negative Urine RBC 0-2 Urine WBC 0-5 Ur Squamous Epith Cells 0-2 Urine Bacteria None Seen Hyaline Casts 0-2 Acetone, Qual COVID-19 ([facility]) Negative COVID-19 Clin Com See Note 09/12/22 09/12/22 09/12/22 14:39 17:40 19:28 WBC RBC Hgb Hct MCV MCH MCHC RDW Plt Count MPV Immature Gran % (Auto) Neut % (Auto) Lymph % (Auto) Frio % (Auto) Eos % (Auto) Baso % (Auto) Lymph # (Auto) Frio # (Auto) Eos # (Auto) Baso # (Auto) Abs Immat Gran (auto) Absolute Neuts (auto) Absolute Nucleated RBC Nucleated RBC % (auto) PT Whole Blood PT INR Whole Blood INR APTT VBG pH VBG pCO2 VBG pO2 VBG HCO3 VBG O2 Saturation VBG Base Excess Sodium Potassium Chloride Carbon Dioxide Anion Gap BUN Creatinine Estim Creat Clear Calc Estimated GFR POC Glucose 378 H* 368 H* 392 H* Random Glucose Lactic Acid Calcium Total Bilirubin Direct Bilirubin AST ALT Alkaline Phosphatase Total Creatine Kinase Troponin I High Sens Total Protein Albumin Urine Color Urine Appearance Urine pH Ur Specific [place] Urine Protein Urine Glucose (UA) Urine Ketones Urine Blood Urine Nitrite Ur Leukocyte Esterase Urine RBC Urine WBC Ur Squamous Epith Cells Urine Bacteria Hyaline Casts Acetone, Qual COVID-19 ([facility]) COVID-19 Clin Com 09/12/22 09/12/22 09/13/22 20:55 23:43 03:59 WBC RBC Hgb Hct MCV MCH MCHC RDW Plt Count MPV Immature Gran % (Auto) Neut % (Auto) Lymph % (Auto) Frio % (Auto) Eos % (Auto) Baso % (Auto) Lymph # (Auto) Frio # (Auto) Eos # (Auto) Baso # (Auto) Abs Immat Gran (auto) Absolute Neuts (auto) Absolute Nucleated RBC Nucleated RBC % (auto) PT Whole Blood PT INR Whole Blood INR APTT VBG pH VBG pCO2 VBG pO2 VBG HCO3 VBG O2 Saturation VBG Base Excess Sodium Potassium Chloride Carbon Dioxide Anion Gap BUN Creatinine Estim Creat Clear Calc Estimated GFR POC Glucose 352 H* 253 H 242 H Random Glucose Lactic Acid Calcium Total Bilirubin Direct Bilirubin AST ALT Alkaline Phosphatase Total Creatine Kinase Troponin I High Sens Total Protein Albumin Urine Color Urine Appearance Urine pH Ur Specific [place] Urine Protein Urine Glucose (UA) Urine Ketones Urine Blood Urine Nitrite Ur Leukocyte Esterase Urine RBC Urine WBC Ur Squamous Epith Cells Urine Bacteria Hyaline Casts Acetone, Qual COVID-19 ([facility]) COVID-19 Clin Com 09/13/22 09/13/22 09/13/22 04:11 04:11 04:11 WBC 14.7 H RBC 3.85 L Hgb 10.9 L Hct 33.5 L MCV 87.0 MCH 28.3 MCHC 32.5 RDW 13.2 Plt Count 384 MPV 10.0 Immature Gran % (Auto) 0.4 Neut % (Auto) 81.5 H Lymph % (Auto) 11.2 L Frio % (Auto) 5.7 Eos % (Auto) 0.7 Baso % (Auto) 0.5 Lymph # (Auto) 1.7 Frio # (Auto) 0.8 Eos # (Auto) 0.1 Baso # (Auto) 0.1 Abs Immat Gran (auto) 0.06 H Absolute Neuts (auto) 12.0 H Absolute Nucleated RBC 0.000 Nucleated RBC % (auto) 0.0 PT 11.5 Whole Blood PT INR 1.0 Whole Blood INR APTT 28.2 VBG pH VBG pCO2 VBG pO2 VBG HCO3 VBG O2 Saturation VBG Base Excess Sodium 136 Potassium 4.1 Chloride 103 Carbon Dioxide 21 L Anion Gap 16 BUN 44 H Creatinine 2.19 H Estim Creat Clear Calc 28.2 Estimated GFR 22 POC Glucose Random Glucose 261 H Lactic Acid Calcium 8.4 Total Bilirubin 0.3 Direct Bilirubin AST 14 ALT 24 Alkaline Phosphatase 160 H Total Creatine Kinase Troponin I High Sens Total Protein 5.7 L Albumin 3.0 L Urine Color Urine Appearance Urine pH Ur Specific [place] Urine Protein Urine Glucose (UA) Urine Ketones Urine Blood Urine Nitrite Ur Leukocyte Esterase Urine RBC Urine WBC Ur Squamous Epith Cells Urine Bacteria Hyaline Casts Acetone, Qual COVID-19 ([facility]) COVID-19 Clin Com 09/13/22 09/13/22 04:23 07:21 WBC RBC Hgb Hct MCV MCH MCHC RDW Plt Count MPV Immature Gran % (Auto) Neut % (Auto) Lymph % (Auto) Frio % (Auto) Eos % (Auto) Baso % (Auto) Lymph # (Auto) Frio # (Auto) Eos # (Auto) Baso # (Auto) Abs Immat Gran (auto) Absolute Neuts (auto) Absolute Nucleated RBC Nucleated RBC % (auto) PT Whole Blood PT INR Whole Blood INR APTT VBG pH 7.38 VBG pCO2 37 VBG pO2 40 VBG HCO3 22 VBG O2 Saturation 67.0 VBG Base Excess -1.9 Sodium Potassium Chloride Carbon Dioxide Anion Gap BUN Creatinine Estim Creat Clear Calc Estimated GFR POC Glucose 203 H Random Glucose Lactic Acid Calcium Total Bilirubin Direct Bilirubin AST ALT Alkaline Phosphatase Total Creatine Kinase Troponin I High Sens Total Protein Albumin Urine Color Urine Appearance Urine pH Ur Specific [place] Urine Protein Urine Glucose (UA) Urine Ketones Urine Blood Urine Nitrite Ur Leukocyte Esterase Urine RBC Urine WBC Ur Squamous Epith Cells Urine Bacteria Hyaline Casts Acetone, Qual COVID-19 ([facility]) COVID-19 Clin Com Progress Note: A&P Assessment and plan (1) Cerebral ischemia: Status: Resolved (2) Chronic renal failure: Status: Inactive (3) Hypertensive crisis: Status: Resolved (4) Hyperglycemia: Status: Resolved (5) Altered mental status: Status: Resolved (6) Vision changes: Status: Resolved (7) Hypertensive encephalopathy: Status: Resolved (8) Elevated liver enzymes: Status: Resolved (9) Vitamin D deficiency: Status: Resolved (10) Acute renal failure: Status: Inactive (11) Hyperglycemia due to diabetes mellitus: Status: Acute (12) Morbid obesity: Status: Inactive (13) Diabetes type 2, controlled: Status: Inactive (14) HTN (hypertension): Status: Acute (15) AMY (obstructive sleep apnea): Status: Inactive (16) Diabetes type 2, uncontrolled: Status: Acute Plan So she has got waxing and waning focal neurologic findings implying left cortical dysfunction and I still have concerns that this is not PRES especially given this focality and I know that there is no arterial occlusion on the CTA of the brain I have concerns however for possible cerebral venous thrombosis and I would least I feel we need to rule this out Given the small dose of IV nicardipine am going to stop it and switch her to oral Coreg which I will titrate gently keep her on aspirin and for now DVT prophylaxis only levels of heparin pending results of the [facility] Quality Stroke Does the patient have a stroke diagnosis?: No VTE Prior VTE?: No VTE Risk Level:: Medical - moderate - high VTE Device Contraindication: N/A - Device Ordered VTE Drug Contraindication: N/A - Med Ordered
[2022-09-13] MEDS: carvediloL 3.125 MG TABLET PO ×2 (09:38→20:33)
[2022-09-13 11:26] LABS: Glucose, Whole Blood 314 mg/dL (60-115)
--- NOTE | 2022-09-13 13:19 | PC.NURSE ---
BEDSIDE RN SWALLOW EVALUATION PREFORMED, PATIENT PASSED. ABLE TO TOLERATE WATER AND SWALLOWING PILLS. MD CONSULTED AND DIABETIC DIET ORDERED PER MD. PATIENT BROUGHT DOWN FOR HEAD MRI WITH CONTRAST BY RN. PATIENT TOLERATED WELL. PENDING RESULTS.
[2022-09-13 16:21] LABS: Glucose, Whole Blood 286 mg/dL (60-115)
[2022-09-13 20:25] LABS: Glucose, Whole Blood 307 mg/dL (60-115)
[2022-09-13] MEDS: Famotidine 20 MG TABLET PO (20:33)
[2022-09-14] VITALS: BP 155/70; PULSE 64; RESP 16; TEMP 36.2; O2SAT 98
[2022-09-14] MEDS: Heparin Sodium,Porcine 5,000 UNIT/ML VIAL 5000 UNIT SUBCUT ×3 (01:08→16:46)
[2022-09-14 03:55] VITALS: BP 150/74; PULSE 65; RESP 17; TEMP 36.4; O2SAT 100
[2022-09-14 07:19] VITALS: BP 176/74; PULSE 63; RESP 20; TEMP 36.6; O2SAT 100
[2022-09-14 07:37] LABS: Glucose, Whole Blood 226 mg/dL (60-115)
[2022-09-14] MEDS: Aspirin 81 MG TAB.CHEW PO (07:49)
[2022-09-14] MEDS: Insulin Lispro 100 UNIT/ML 3 ML VIAL SUBCUT ×4 (07:49→21:26)
[2022-09-14] MEDS: carvediloL 3.125 MG TABLET PO (07:49)
[2022-09-14] MEDS: Atorvastatin Calcium 80 MG TABLET PO (07:49)
--- NOTE | 2022-09-14 08:01 | PC.NURSE ---
Srivastava removed at 0800. Patient due to void at 1600.
[2022-09-14 11:16] VITALS: BP 117/64; PULSE 67; RESP 18; TEMP 36.1; O2SAT 99
[2022-09-14 11:26] LABS: Glucose, Whole Blood 374 mg/dL (60-115)
[2022-09-14] MEDS: amLODIPine Besylate 10 MG TABLET PO (11:40)
[2022-09-14] MEDS: carvediloL 6.25 MG TABLET PO (12:02)
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
--- NOTE | 2022-09-14 13:33 | PC.NURSE ---
per Dr. bolton pt triple lumen can be removed. Patient has a working 18G IV in the right AC. Ana SERRATO from the ICU removed patients triple lumen at 1200. DSG to right neck intact.
[2022-09-14 15:44] LABS: Glucose, Whole Blood 292 mg/dL (60-115)
[2022-09-14 15:45] VITALS: BP 180/76; PULSE 69; RESP 18; TEMP 36.4; O2SAT 98
[2022-09-14] MEDS: lisinopriL 5 MG TABLET PO (16:47)
[2022-09-14 20:00] VITALS: BP 150/82; PULSE 75; RESP 18; TEMP 36.9; O2SAT 96
[2022-09-14 20:05] LABS: Glucose, Whole Blood 240 mg/dL (60-115)
[2022-09-14] MEDS: Famotidine 20 MG TABLET PO (21:25)
[2022-09-14] MEDS: carvediloL 3.125 MG TABLET 9.375 MG PO (21:25)
[2022-09-14] MEDS: Acetaminophen 325 MG TABLET 650 MG PO (21:58)
[2022-09-15] VITALS: BP 150/68; PULSE 63; RESP 17; TEMP 36.1; O2SAT 97
[2022-09-15] MEDS: Heparin Sodium,Porcine 5,000 UNIT/ML VIAL 5000 UNIT SUBCUT ×3 (01:34→18:25)
[2022-09-15 04:00] VITALS: BP 132/64; PULSE 63; RESP 16; TEMP 36.1; O2SAT 97
[2022-09-15 08:00] VITALS: BP 140/68; PULSE 62; RESP 18; TEMP 36.7; O2SAT 98
[2022-09-15] MEDS: lisinopriL 5 MG TABLET PO (08:17)
[2022-09-15] MEDS: amLODIPine Besylate 10 MG TABLET PO (08:17)
[2022-09-15] MEDS: Insulin Lispro 100 UNIT/ML 3 ML VIAL SUBCUT ×4 (08:17→20:08)
[2022-09-15] MEDS: Furosemide 40 MG TABLET PO (08:18)
[2022-09-15] MEDS: Aspirin 81 MG TAB.CHEW PO (08:18)
[2022-09-15] MEDS: Atorvastatin Calcium 80 MG TABLET PO (08:18)
[2022-09-15] MEDS: FLUoxetine HCl 20 MG CAPSULE PO (08:18)
[2022-09-15] MEDS: Loratadine 10 MG TABLET PO (08:18)
[2022-09-15 08:28] LABS: Glucose, Whole Blood 271 mg/dL (60-115)
[2022-09-15] MEDS: carvediloL 3.125 MG TABLET 9.375 MG PO ×2 (11:23→20:08)
[2022-09-15 11:34] LABS: Glucose, Whole Blood 339 mg/dL (60-115)
[2022-09-15 12:00] VITALS: BP 139/63; PULSE 65; RESP 18; TEMP 36.4; O2SAT 96
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
--- NOTE | 2022-09-15 14:58 | MHC.CM.PN ---
PT REPORTS SHE LIVES WITH HER SON AND DAUGHTER IN LAW SHE REPORTS SHE IS INDEPENDENT WITH CARE SHE HAS A CANE BUT USES IT ONLY PRN SHE DENIES USING HOME SERVICES HCP ON FILE PCP: KAMLESH FERRERA [facility] X 3 W/[facility]T IMM DELIVERED CURRENT DC PLAN IS HOME WITH NO SERVICES FAMILY TO TRANSPORT
[2022-09-15 15:47] VITALS: BP 119/60; PULSE 55; RESP 17; TEMP 36.6; O2SAT 98
[2022-09-15 16:01] LABS: Glucose, Whole Blood 270 mg/dL (60-115)
[2022-09-15 19:49] VITALS: BP 132/69; PULSE 63; RESP 17; TEMP 36.6; O2SAT 96
[2022-09-15 19:59] LABS: Glucose, Whole Blood 291 mg/dL (60-115)
[2022-09-15] MEDS: Famotidine 20 MG TABLET PO (20:08)
[2022-09-16] VITALS: BP 125/61; PULSE 60; RESP 18; TEMP 36.6; O2SAT 96
[2022-09-16] MEDS: Heparin Sodium,Porcine 5,000 UNIT/ML VIAL 5000 UNIT SUBCUT ×2 (02:41→10:32)
[2022-09-16 03:46] VITALS: BP 144/67; PULSE 63; RESP 18; TEMP 36.6; O2SAT 98
[2022-09-16 07:55] VITALS: BP 174/80; PULSE 64; RESP 18; TEMP 36.5; O2SAT 99
[2022-09-16 08:06] LABS: Glucose, Whole Blood 296 mg/dL (60-115)
[2022-09-16] MEDS: Insulin Lispro 100 UNIT/ML 3 ML VIAL SUBCUT ×2 (08:10→12:02)
[2022-09-16] MEDS: Furosemide 40 MG TABLET PO (08:11)
[2022-09-16] MEDS: amLODIPine Besylate 10 MG TABLET PO (08:11)
[2022-09-16] MEDS: Atorvastatin Calcium 80 MG TABLET PO (08:11)
[2022-09-16] MEDS: FLUoxetine HCl 20 MG CAPSULE PO (08:11)
[2022-09-16] MEDS: Aspirin 81 MG TAB.CHEW PO (08:11)
[2022-09-16] MEDS: Loratadine 10 MG TABLET PO (08:11)
[2022-09-16] MEDS: lisinopriL 5 MG TABLET PO (08:11)
[2022-09-16] MEDS: carvediloL 3.125 MG TABLET 9.375 MG PO (08:12)
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
[2022-09-16 11:49] LABS: Glucose, Whole Blood 356 mg/dL (60-115)
[2022-09-16 12:00] VITALS: BP 113/56; PULSE 61; RESP 18; TEMP 36.1; O2SAT 97
--- NOTE | 2022-09-16 15:01 | W.MHC.F2F ---
Service Date Service Date: 09/16/22 Encounter Date of encounter: 09/16/22 Encounter: Acute hospitalization Reasons for Services Signs and symptoms assessed: Hypertensive encephalopathy with intermittent right-sided weakness Reason for retirement: neurological assessment, medication management and medication treatment Homebound: Leaving the home is medically contraindicated at this time without the asist of a device and/or another person due th the listed conditions above and below. Reason homebound: unsteady gait / fall risk, leg weakness and poor balance / fall risk Certification: Based on the above findings, I certify that this patient is confined to the home and needs intermittent retirement care, physical therapy and/or speech therapy, or continues to need occupational therapy. The patient is under my care, and I have initiated the establishment of the plan of care. The patient will be followed by a physician who will periodically review the plan of care.
--- NOTE | 2022-09-16 15:03 | MHC.CM.PN ---
PT WILL DC HOME TODAY WITH A REFERRAL TO [facility] TO [facility]SP[facility]
[2022-09-17 11:57] LABS: Cardiolipin IgG Ab <2.0 GPL-U/mL; Cardiolipin IgM Ab <2.0 MPL-U/mL
[2022-09-17 20:51] LABS: Anti-Thrombin III Antigen 90 % normal (80-120)
[2022-09-17 22:56] LABS: Protein C Activity >200 % normal (70-180); Protein S Activity rflx Tot&Fr 97 % normal (60-140)
[2022-09-20 06:48] LABS: PTT (LAC) Screen 32 sec (<=40)
[2022-09-20 13:12] LABS: Prothrombin 20210A NEGATIVE
[2022-09-20 19:29] LABS: Factor V Leiden NEGATIVE
== END 2022-09-16 15:37 | disposition home health service (06) | DRG 78 ==
LOC: HO.ED 12:54 → HO.EDOVER 16:21 → HO.ICU 16:29 → HO.S3 09-13 11:59
PROVIDERS: Admitting Provider Internal Medicine Cardiovascular Disease; Emergency Provider Student in an Organized Health Care Education/Training Program; PCP Hospitalist; Visit Provider Hospitalist
DX: I67.4 Hypertensive encephalopathy (principal); I16.9 Hypertensive crisis, unspecified; E11.9 Type 2 diabetes mellitus without complications; E78.5 Hyperlipidemia, unspecified; I10 Essential (primary) hypertension; G47.33 Obstructive sleep apnea (adult) (pediatric); Z20.822 Contact with and (suspected) exposure to COVID-19; Z88.0 Allergy status to penicillin; Z79.4 Long term (current) use of insulin; Z79.899 Other long term (current) drug therapy
CPT/HCPCS: 36415; 70450; 70496; 70498; 70546; 70551; 71045; 80048; 80053; 80076; 81001; 81240; 81241; 82009; 82550; 82803; 82947; 83605; 84484; 85025; 85301; 85302; 85303; 85305; 85306; 85597; 85610; 85613; 85730; 86147; 87040; 87635; 93005; 99285; A9585; C1758; J2405; Q9967

== ENCOUNTER 2022-11-27 16:51 | Observation (INO) | payer MEDICARE, SELFPAY ==
--- NOTE | ~2022-11-27 | CT_ITS ---
EXAMINATION: CT ABDOMEN AND PELVIS WITHOUT CONTRAST CLINICAL INFORMATION: Renal failure with question of obstruction COMPARISON: None TECHNIQUE: Multidetector volumetric imaging was performed from the superior aspect of the liver through the pubic symphysis. Sagittal and coronal reformatted images were obtained on the technologist's workstation. This CT examination was performed using dose optimization techniques as appropriate, variously including the following: *Automated exposure control *Adjustment of mA and/or kV according to patient size (this includes techniques or standardized protocols for targeted exams where dose is matched to indication/reason for exam; i.e. extremities or head) *Use of iterative reconstruction technique DLP: 935 mGy-cm FINDINGS: LUNG BASES: Minimal basilar atelectasis is present. LIVER, GALLBLADDER, AND BILIARY TREE: The liver is normal in size, shape, and attenuation. No focal hepatic lesion or biliary ductal dilatation is present. The gallbladder is unremarkable with no evidence of radiopaque gallstones, gallbladder wall thickening, or obvious pericholecystic inflammatory changes. PANCREAS: Unremarkable. SPLEEN: Unremarkable. ADRENAL GLANDS: Unremarkable. KIDNEYS AND URETERS: The kidneys are normal in size, shape, and attenuation. Is a tiny punctate nonobstructing calcification is seen at the upper pole the left kidney (6:74) No hydronephrosis or hydroureter. No right-sided or ureteral calculi seen. Bilateral minimal nonspecific perinephric stranding. BLADDER: Unremarkable. GASTROINTESTINAL TRACT: The small and large bowel are unremarkable. The appendix is unremarkable. ABDOMINAL WALL: No significant hernia is appreciated. Tiny periumbilical hernia seen containing only fat. LYMPH NODES: No retroperitoneal lymphadenopathy. VASCULAR: Calcified plaque present in the aorta and iliofemoral vessels without aneurysm. PELVIC VISCERA: The uterus and adnexa are unremarkable aside from the presence of a small calcified uterine fibroid.. OSSEOUS STRUCTURES: Degenerative changes are present throughout the spine most marked at L4-L5 where there is grade [address]/CT abdomen pelvis wo IV con IMPRESSION: 1. No evidence of obstruction. A cause for the patient's acute renal failure has not been found. 2. Tiny punctate nonobstructing left renal calculus. 3. Other incidental findings as described above. Fleischner guidelines were followed.
--- NOTE | ~2022-11-27 | XR_ITS ---
EXAMINATION: XR LUMBOSACRAL SPINE CLINICAL INFORMATION: Pain. COMPARISON: None TECHNIQUE: Three views of the lumbosacral spine. FINDINGS: Grade 1 anterolisthesis of L4 on L5. Mild leftward curvature of the lumbar spine on the frontal view. Severe L4-5 disc degeneration, with marked disc height loss, endplate osteophytes. Multilevel spondylosis in the visualized spine otherwise to lesser degree. Multilevel facet degeneration. Vertebral body heights are maintained. No acute fractures seen. No abnormal soft tissue calcification. Mild bilateral SI joint arthritis. XR/XR lumbar spine 2-3V IMPRESSION: *No evidence of acute vertebral compression fracture. *Grade 1 anterolisthesis of L4. *Lumbar spondylosis, more prominent severe L5-S1 disc degeneration.
[2022-11-27 17:26] VITALS: BP 135/78; PULSE 68; RESP 20; TEMP 36.2; O2SAT 97; BMI 45.1
[2022-11-27 18:19] LABS: MANUAL DIFF FLAG NO
[2022-11-27 18:35] LABS: Anion Gap 19 (12-20); Blood Urea Nitrogen 51 mg/dL (9-16); Calcium 9.3 mg/dL (8.4-10.2); Carbon Dioxide 23 mmol/L (22-29); Chloride 107 mmol/L (96-108); Creatinine Clr Calc Pharmacy 23.1; Estimated Glomerular Filt Rate 18; Glucose Random 103 mg/dL (60-115); Potassium 5.5 mmol/L (3.3-5.1); Sodium 143 mmol/L (135-145)
[2022-11-27 18:48] LABS: Basophils Absolute Auto 0.1 X10*3/uL (0.0-0.2); Basophils Percent Auto 0.5 % (0-2); Eosinophils Absolute Auto 0.4 X10*3/uL (0.0-0.4); Eosinophils Percent Auto 3.3 % (0-4); Hematocrit 35.1 % (37.0-47.0); Hemoglobin 11.1 g/dl (12.0-16.0); Imm Gran Abs Auto 0.11 X10*3/uL (0.00-0.03); Lymphocytes Absolute Auto 1.7 X10*3/uL (1.2-4.9); Lymphocytes Percent Auto 15.2 % (20-40); Mean Corpuscular HGB Conc 31.6 g/dl (31.0-35.0); Mean Corpuscular Hemoglobin 29.1 pg (27.0-33.0); Mean Corpuscular Volume 91.9 fL (80.0-98.0); Mean Platelet Volume 9.6 fL (9.4-12.3); Monocytes Absolute Auto 0.8 X10*3/uL (0.1-1.2); Neutrophils Absolute Auto 8.3 x10*3/uL (2.0-8.3); Platelet Count 379 X10*3/uL (160-400); Red Blood Count 3.82 X10*6/uL (4.20-5.50); Red Cell Distribution Width 14.2 % (11.0-16.0); White Blood Count 11.3 X10*3/uL (4.8-10.8)
--- NOTE | 2022-11-27 20:01 | ECG_ITS ---
Test Reason : Elevated Pot Blood Pressure : / mmHG Vent. Rate : 064 BPM Atrial Rate : 064 BPM P-R Int : 176 ms QRS Dur : 102 ms QT Int : 436 ms P-R-T Axes : 026 006 066 degrees QTc Int : 449 ms Normal sinus rhythm Possible Left atrial enlargement Minimal voltage criteria for LVH, may be normal variant ( Reji product ) Borderline ECG When compared with ECG of 12-SEP-2022 12:36, No significant change was found Referred By: Frank Elise Electronically Signed By:NICHOLE GARVIN MD
--- NOTE | 2022-11-27 20:03 | ED_ITS ---
HPI - Back Pain/Injury General Chief Complaint: Back Pain/Injury Stated Complaint: ?Kidney failure/Sent from Urgent care Time Seen by Provider: 11/27/22 20:00 Source: patient Mode of arrival: ambulatory Limitations: no limitations History of Present Illness HPI Narrative: 67-year-old female presents emergency room complaining of 1 week of back pain she actually went to a walk-in and was sent here when they were concerned about her kidney function patient does have baseline renal insufficiency but is much worse today labs do show an elevated potassium as well she states she has been eating and drinking normally she is diabetic she denies any fevers chills cough denies any back surgeries she has no back pain red flags she has had no recent falls she has no weakness she has no loss of bladder or bowel function she has no history of recent back surgeries denies any IV drug use MD elicited complaint: back pain Related Data Home Medications Medication Instructions Recorded Confirmed ascorbic acid (vitamin C) 500 mg 500 mg PO DAILY 09/22/20 11/27/22 tablet fexofenadine 180 mg tablet 180 mg PO DAILY 09/22/20 11/27/22 insulin lispro 100 unit/mL 0 sliding scale dose subcut QIDACHS 09/12/22 11/27/22 subcutaneous pen multivitamin 1 tab PO DAILY 09/12/22 11/27/22 atorvastatin 80 mg tablet 80 mg PO BEDTIME 11/27/22 11/27/22 carvedilol 12.5 mg tablet 1 tab PO BID 11/27/22 11/27/22 cholecalciferol (vitamin D3) 1,250 1,250 mcg PO PISANO@0900 11/27/22 11/27/22 mcg (50,000 unit) capsule ferrous sulfate 325 mg (65 mg 325 mg PO DAILY 11/27/22 11/27/22 iron) tablet Previous Rx's Medication Instructions Recorded insulin glargine 100 unit/mL (3 70 unit (0.7 mL) subcut BEDTIME 03/21/22 mL) subcutaneous pen (Lantus #15 mL Solostar U-100 Insulin) aspirin 81 mg chewable tablet 81 mg PO DAILY #30 tabs 09/16/22 furosemide 40 mg tablet 40 mg PO DAILY 30 days #30 tabs 10/30/22 fluoxetine 20 mg capsule 20 mg PO DAILY 3 months #90 caps 11/18/22 lisinopril 5 mg tablet 5 mg PO DAILY #30 tabs 11/21/22 Allergies Allergy/AdvReac Type Severity Reaction Status Date / Time penicillin V Allergy Severe joint Verified 11/27/22 15:57 swelling and rash Review of Systems Review of Systems: Review of systems: General: Patient denies any fever chills recent illness or falls Musculoskeletal: Back pain denies any or body aches or other injuries HEENT: denies headache, runny nose, ear pain Respiratory: denies shortness of breath, cough Cardiovascular: no chest pain or palpitations : denies dysuria, frequency Abdomen: no nausea vomiting denies abdominal pain Extremities: no swelling, no pain Skin: no diaphoresis Yes all other systems are reviewed and are negative [facility] Past Medical History Medical History (Updated 11/27/22 @ 22:27 by Frank Elise DO) Acute renal failure Anemia Bilateral lower extremity edema Chronic renal failure Congestive heart failure Diabetes type 2, controlled Diabetes type 2, uncontrolled High cholesterol HTN (hypertension) Hypertension, essential Morbid obesity Morbid obesity due to excess calories Nocturnal hypoxemia Obesity AMY (obstructive sleep apnea) Pneumonia Secondary aldosteronism Surgical History History of D&C History of surgery Family History Family History Father Stroke Mother Stroke Hypertension Diabetes Maternal Grandmother Diabetes Hypertension Stroke Sister Diabetes Breast cancer Son Bipolar 1 disorder Overweight Other Mental health problem Substance abuse Social History Social History Household Members: Family Housing: House Do you presently have visiting nurse or other home services: No Unable to assess alcohol history related to: Unable to respond Alcohol intake: never Patient Tobacco Use Status: Never used Tobacco Smoked in Last 30 Days: No e-Cigarette/Vaping Use: Never Used Use of substances other than those prescribed or required for medical reasons: No Advance Directives: Yes Advance Directives on File: Yes Advance Directives Date on File: 06/09/21 service: No Current occupational status: employed Cognitive needs: No Hearing needs: No Vision needs: Yes Physical Exam Vital Signs: Vital Signs: Last Vital Signs Temp 98.0 F 11/27/22 21:41 Pulse 68 11/27/22 21:41 Resp 13 11/27/22 21:41 BP 222/87 H 11/27/22 21:41 Pulse Ox 97 11/27/22 21:41 O2 Del Method 11/27/22 21:41 BMI result Body Mass Index 45.1 General: Well-appearing well-nourished in no signs of distress HEENT: Normocephalic atraumatic Neck: No signs of JVD, no masses no tenderness or lymphadenopathy Cardiovascular: Regular rate and rhythm Respiratory: Clear to auscultation bilaterally Abdomen: Soft nontender no masses able to squeeze but she. Extremities: Normal pedal pulses no signs of edema Skin: Dry warm no rashes Back: No tenderness full ROM negative straight leg test normal reflexes to bilateral lower extremities Medications Administered Generic Name Dose Route Start Last Admin Trade Name Freq PRN Reason Stop Dose Admin Dextrose 1,000 mls @ 500 mls/hr 11/27/22 20:15 11/27/22 20:59 D10 IVCONT 500 mls/hr .Q2H LORRIE Administration Discontinued Medications Generic Name Dose Route Start Last Admin Trade Name Freq PRN Reason Stop Dose Admin Acetaminophen 650 mg 11/27/22 20:19 11/27/22 20:44 Acetaminophen 325 Mg Tablet PO 11/27/22 20:20 650 mg ONCE ONE Administration Cyclobenzaprine HCl 5 mg 11/27/22 20:19 11/27/22 20:43 Cyclobenzaprine Hcl 5 Mg Tablet PO 11/27/22 20:20 5 mg ONCE ONE Administration Sodium Chloride 1,000 mls @ 999 mls/hr 11/27/22 20:15 11/27/22 21:36 Ns IV 11/27/22 21:15 Infused .Q1H1M LORRIE Infusion Calcium Gluconate 1 gm in 50 mls @ 50 mls/hr 11/27/22 20:01 11/27/22 21:00 Calcium Gluconate IV 11/27/22 21:00 50 mls/hr ONCE ONE Administration Sodium Chloride 1,000 mls @ 999 mls/hr 11/27/22 20:30 11/27/22 21:28 Ns IV 11/27/22 21:30 999 mls/hr .Q1H1M LORRIE Administration Insulin Human Regular 5 unit 11/27/22 20:01 11/27/22 21:00 Insulin Regular, Human 100 Unit/Ml 3 Ml Vial IVPUSH 11/27/22 20:02 5 unit ONCE ONE Administration Labetalol HCl 20 mg 11/27/22 21:50 11/27/22 22:00 Labetalol Hcl 100 Mg/20 Ml Vial IVPUSH 11/27/22 21:51 20 mg ONCE ONE Administration Labetalol HCl 200 mg 11/27/22 21:50 11/27/22 22:00 Labetalol Hcl 200 Mg Tablet PO 11/27/22 21:51 200 mg ONCE ONE Administration Protocol Morphine Sulfate 4 mg 11/27/22 20:19 11/27/22 20:43 Morphine Sulfate 4 Mg/Ml Cartridge IVPUSH 11/27/22 20:20 4 mg ONCE ONE Administration Protocol Prednisone 60 mg 11/27/22 20:19 11/27/22 20:43 Prednisone 20 Mg Tablet PO 11/27/22 20:20 60 mg ONCE ONE Administration Sodium Bicarbonate 50 meq 11/27/22 20:01 11/27/22 21:00 Sodium Bicarbonate 8.4% 50 Meq/50 Ml Syringe IVPUSH 11/27/22 20:02 50 meq ONCE ONE Administration Medical Decision Making Medical Decision Making [facility] Narrative: Patient treated aggressively with bicarb fluids calcium insulin and glucose for her hyperkalemia EKG was ordered as well. I also treated her pain with morphine cyclobenzaprine and prednisone. 2144 pain is well controlled but now her blood pressure has gone up to 210 systolic with patient IV and oral labetalol CT is unremarkable. 2225 Patient is accepted to medicine pending lowered BP. Still have not recieved the IV or oral dose. I did discuss the case with Dr. Ibrahim. Differential Diagnosis Differential Diagnoses: The differential diagnosis associated with the presen tation includes Back pain acute renal failure patient has baseline renal insufficiency is diabetic likely causing this worsening renal function I will repeat the urinalysis check labs give patient fluids so quickly lower the potassium which is elevated. Very unlikely to have CT equinus a recurrent or surgical issues she has got normal strength this isolated lower back pain. Admission/Observation Consideration of admission/observation: Escalation of care including admission/observation considered Lab Data [facility] Lab Attestation statement: I reviewed the patient's lab results. 11/27/22 18:12 11/27/22 18:12 Labs: Lab Results 11/27/22 11/27/22 11/27/22 Range/Units 18:12 18:12 20:52 WBC 11.3 H (4.8-10.8) X10*3/uL RBC 3.82 L (4.20-5.50) X10*6/uL Hgb 11.1 L (12.0-16.0) g/dl Hct 35.1 L (37.0-47.0) % MCV 91.9 (80.0-98.0) fL MCH 29.1 (27.0-33.0) pg MCHC 31.6 (31.0-35.0) g/dl RDW 14.2 (11.0-16.0) % Plt Count 379 (160-400) X10*3/uL MPV 9.6 (9.4-12.3) fL Immature Gran % (Auto) 1.0 H (0.0-0.4) % Neut % (Auto) 73.0 (45-73) % Lymph % (Auto) 15.2 L (20-40) % Garrett % (Auto) 7.0 (2-11) % Eos % (Auto) 3.3 (0-4) % Baso % (Auto) 0.5 (0-2) % Lymph # (Auto) 1.7 (1.2-4.9) X10*3/uL Garrett # (Auto) 0.8 (0.1-1.2) X10*3/uL Eos # (Auto) 0.4 (0.0-0.4) X10*3/uL Baso # (Auto) 0.1 (0.0-0.2) X10*3/uL Abs Immat Gran (auto) 0.11 H (0.00-0.03) X10*3/uL Absolute Neuts (auto) 8.3 (2.0-8.3) x10*3/uL Absolute Nucleated RBC 0.000 (0.0-0.012) X10*3/uL Nucleated RBC % (auto) 0.0 (0.0-0.2) /100WBC Sodium 143 (135-145) mmol/L Potassium 5.5 H D (3.3-5.1) mmol/L Chloride 107 (96-108) mmol/L Carbon Dioxide 23 (22-29) mmol/L Anion Gap 19 (12-20) BUN 51 H (9-16) mg/dL Creatinine 2.64 H (0.5-1.4) mg/dL Estim Creat Clear Calc 23.1 Estimated GFR 18 Random Glucose 103 (60-115) mg/dL Calcium 9.3 D (8.4-10.2) mg/dL COVID-19 (LUIS) Negative (Negative) COVID-19 Clin Com See Note Independent Interpretation I performed an independent interpretation of an: EKG Interpretation: RAte 64 nsr normal intervals no hyperacute T waves Radiology Impression Discussion of test interpretation with radiology: I have reviewed the radiologist's reading. Independent Historian Clinical information obtained from an independent historian. History obtained fr om or confirmed by: Friend Chronic Conditions Patient?s care impacted by: Diabetes and Hypertension Critical Care Time Critical Care Time Critical Care Time: Yes Total Critical Care Time: 45 Attestation: Patient found to acute failure with hyperkalemia was treated aggressively with calcium glucose bicarb patient given morphine for back pain. Discharge Plan Discharge Clinical Impression: Hypertension, essential, Elevated creatine kinase, Morbid obesity, Back pain, Acute hyperkalemia, Acute on chronic kidney failure, Hypertensive urgency Patient Disposition: Admitted As Inpatient Prescriptions: No Action furosemide 40 mg tablet 40 mg PO DAILY 30 Days Qty: 30 1RF fluoxetine 20 mg capsule 20 mg PO DAILY 90 Days Qty: 90 3RF lisinopril 5 mg tablet 5 mg PO DAILY Qty: 30 0RF Protocol: Hold for SBP< HOLD for SBP < : 90 insulin lispro 100 unit/mL insulin pen 0 sliding scale dose subcut QIDACHS Protocol: Insulin Correction Scale Less than or equal to 110 ---- Give (units): 0 111 to 150 Give (units): 0 151 to 200 Give (units): 2 201 to 250 Give (units): 4 251 to 300 Give (units): 6 301 to 350 Give (units): 8 Greater than 350 Give (units): 10 Call MD if Blood Glucose > : 350 multivitamin Tablet 1 tab PO DAILY aspirin 81 mg Tablet,Chewable 81 mg PO DAILY Qty: 30 0RF atorvastatin 80 mg tablet 80 mg PO BEDTIME ferrous sulfate 325 mg (65 mg iron) Tablet 325 mg PO DAILY cholecalciferol (vitamin D3) 1,250 mcg (50,000 unit) capsule 1,250 mcg PO PISANO@0900 carvedilol 12.5 mg tablet 1 tab PO BID fexofenadine 180 mg tablet 180 mg PO DAILY ascorbic acid (vitamin C) 500 mg tablet 500 mg PO DAILY Lantus Solostar U-100 Insulin 100 unit/mL (3 mL) insulin pen 70 unit subcut BEDTIME Qty: 15 12RF
[2022-11-27 20:11] VITALS: BP 182/87; PULSE 67; RESP 18; TEMP 36.6; O2SAT 99
[2022-11-27] MEDS: 0.9 % Sodium Chloride 1,000 ML 999 ML IV ×2 (20:27→21:28)
[2022-11-27] MEDS: Cyclobenzaprine HCl 5 MG TABLET PO (20:43)
[2022-11-27] MEDS: Morphine Sulfate 4 MG/ML CARTRIDGE IVPUSH (20:43)
[2022-11-27] MEDS: predniSONE 20 MG TABLET 60 MG PO (20:43)
[2022-11-27] MEDS: Acetaminophen 325 MG TABLET 650 MG PO (20:44)
[2022-11-27] MEDS: Dextrose 10 % 1,000 ML 500 ML IVCONT ×2 (20:59→23:39)
[2022-11-27] MEDS: Sodium Bicarbonate 8.4% 50 MEQ/50 ML SYRINGE IVPUSH (21:00)
[2022-11-27] MEDS: Calcium Gluconate/NaCl,Iso-Osm 1 GM/50 ML PLAST..BAG IV (21:00)
[2022-11-27] MEDS: Insulin Regular, Human 100 UNIT/ML 3 ML VIAL IVPUSH (21:00)
--- NOTE | 2022-11-27 21:23 | PC.NURSE ---
patient a&ox3, front desk monitor intact, sinus radha at 65, pt medicated per order, provider at bedside, call perez within reach, will continue to monitor
[2022-11-27 21:28] LABS: COVID-19 Test Negative (Negative); IDNOW Serial# BCCEAD1C
--- NOTE | 2022-11-27 21:37 | PC.NURSE ---
assumed care of pt no apparent distress daughter at bedside
--- NOTE | 2022-11-27 21:38 | PHA.MEDREC ---
med rec completed. spoke with patient. Pharmacy Consult ? Medication Reconciliation Pharmacy has completed the medication reconciliation.
[2022-11-27 21:41] VITALS: BP 222/87; PULSE 68; RESP 13; TEMP 36.7; O2SAT 97
--- NOTE | 2022-11-27 21:45 | PC.NURSE ---
Informed Dr Elise of BP 222/87 and prior to my assuming care of this pt BP of 182/87 at 2009. HTN meds to follow per Dr Elise.
[2022-11-27] MEDS: Labetalol HCL 200 MG TABLET PO (22:00)
[2022-11-27] MEDS: Labetalol HCL 100 MG/20 ML VIAL 20 MG IVPUSH (22:00)
[2022-11-27 22:32] LABS: Anion Gap 18 (12-20); Blood Urea Nitrogen 48 mg/dL (9-16); Calcium 8.7 mg/dL (8.4-10.2); Carbon Dioxide 21 mmol/L (22-29); Chloride 107 mmol/L (96-108); Creatinine Clr Calc Pharmacy 25.2; Estimated Glomerular Filt Rate 20; Glucose Random 204 mg/dL (60-115); Potassium 4.8 mmol/L (3.3-5.1); Sodium 141 mmol/L (135-145)
[2022-11-27 22:44] VITALS: BP 225/90; PULSE 71; RESP 18
[2022-11-27 23:25] LABS: Appearance Urine Clear; Color Urine Yellow; Glucose Urine UA Negative (Negative); Leukocyte Esterase Urine Trace (Negative); Nitrite Urine Negative (Negative); UMIC TRIGGER UACC YES; Urine Blood Negative (Negative); Urine Ketones Negative (Negative); Urine Protein 300 (3+) mg/dL (Neg-Trace)
[2022-11-27 23:36] LABS: Bacteria Urine 4+ (None Seen); Hyaline Casts Urine 0-2 /LPF (0-2); RBC Urine 0-2 /HPF (0-2); UACC Culture Trigger YES
[2022-11-27 23:45] VITALS: RESP 12
[2022-11-27] MEDS: HYDROmorphone HCl 1 MG/ML SYRINGE IVPUSH (23:45)
[2022-11-27] MEDS: ondansetron HCL 4 MG/2 ML VIAL IVPUSH (23:45)
[2022-11-28] VITALS (7 sets, daily range): BP systolic 137–185; BP diastolic 63–81; PULSE 68–78; RESP 16–19; TEMP 36.7–37.1; O2SAT 92–97
[2022-11-28] MEDS: Dextrose 10 % 1,000 ML 500 ML IVCONT ×2 (01:32→03:34)
[2022-11-28 05:10] LABS: Glucose, Whole Blood 435 mg/dL (60-115)
[2022-11-28] MEDS: hydrALAZINE HCl 20 MG/ML VIAL 10 MG IVPUSH (05:14)
[2022-11-28] MEDS: cefTRIAXone sodium 1 GM in 0.9 % Sodium Chloride 50 ML IV (05:18)
[2022-11-28] MEDS: Insulin Lispro 100 UNIT/ML 3 ML VIAL 10 UNIT SUBCUT (05:24)
[2022-11-28] MEDS: carvediloL 12.5 MG TABLET PO ×2 (05:26→07:18)
--- NOTE | 2022-11-28 05:37 | PC.NURSE ---
Discussed order with charge nurse over concerns with fluid overload and hyperglycemia. Charge nurse consulted hospitalist. Order for D10 in error. Only 2L infused despite Mar showing 4L infused. This RN contacted pharmacy in regards to editing the documentation showing that patient received 2L instead of 4L of D10. Pharmacy unable to edit MAR due to the order being discontinued by hospitalist. Total infusion for D10= 2000 mL Hospitalist at bedside to reevealuate patient. POC 435 and hospitalist discontinued fluids. Order for lispro entered by hospitalist and administered by this nurse according to sliding scale protocol. Administered 10u of Lispro.
--- NOTE | 2022-11-28 06:20 | P.HPHOSP_ITS ---
History of Present Illness Date of Service: 11/28/22 Chief Complaint: back pain this is a 59-year-old female with an extensive past medical history that includes CKD, type 2 diabetes insulin dependent, hypertension, obesity, AMY, with CPAP at bedtime, and 2 L of oxygen at baseline hyperlipidemia, CHF on Lasix,, presents to the hospital with complaints of back pain. Patient reports that the back pain been going on for the past 1 week. The pain is constant, in the lower mid back, nonradiating, 8/10, associated with any numbness or tingling in her legs. Patient reports that she has been taking Tylenol which has helped reduce her pain. She otherwise denies any headache, no change in vision, no chest pain, no abdominal pain, no nausea or vomiting, no diarrhea constipation, no urinary symptoms and no lower extremity edema. On arrival to the ED patient initially had a documented blood pressure of 130/76 but all of a sudden increase to 222/87. Patient reports that she has history of hypertension but takes lisinopril and carvedilol and is well controlled at home. Patient received IV dose labetalol, 200 mg p.o. labetalol, Dilaudid for pain was slightly improved blood pressure Her labs are significant for WBC count of 11.3, hemoglobin of 11.1, creatinine of 2.64 which is slightly higher than her baseline, UA positive for leukocyte Estrace and WBC, Abdomen pelvic CT shows no evidence of obstruction, no cause for the patient's acute renal failure, osseous structures show L4-L5 grade 1 anterolisthesis Review of Systems Review of Systems: Yes all other systems are reviewed and are negative [facility] Medical History Acute renal failure Anemia Bilateral lower extremity edema Chronic renal failure Congestive heart failure Diabetes type 2, controlled Diabetes type 2, uncontrolled High cholesterol HTN (hypertension) Hypertension, essential Morbid obesity Morbid obesity due to excess calories Nocturnal hypoxemia Obesity AMY (obstructive sleep apnea) Pneumonia Secondary aldosteronism Family History Father Stroke Mother Stroke Hypertension Diabetes Maternal Grandmother Diabetes Hypertension Stroke Sister Diabetes Breast cancer Son Bipolar 1 disorder Overweight Other Mental health problem Substance abuse Surgical History History of D&C History of surgery Social History Household Members: Family Housing: House Do you presently have visiting nurse or other home services: No Unable to assess alcohol history related to: Unable to respond Alcohol intake: never Patient Tobacco Use Status: Never used Tobacco Smoked in Last 30 Days: No e-Cigarette/Vaping Use: Never Used Use of substances other than those prescribed or required for medical reasons: No Advance Directives: Yes Advance Directives on File: Yes Advance Directives Date on File: 06/09/21 Nutrition Risks: No Nutritional Risk service: No Current occupational status: employed Cognitive needs: No Hearing needs: No Vision needs: Yes Meds Allergies Allergy/AdvReac Type Severity Reaction Status Date / Time penicillin V Allergy Severe joint Verified 11/27/22 15:57 swelling and rash Active Medications: Current Medications Acetaminophen (Acetaminophen 325 Mg Tablet) 650 mg PO Q6H PRN PRN Reason: Pain, Mild (Pain Scale 1-3) Ascorbic Acid (Ascorbic Acid 500 Mg Tablet) 500 mg PO DAILY [facility] Aspirin (Aspirin 81 Mg Tab.Chew) 81 mg PO DAILY [facility] Atorvastatin Calcium (Atorvastatin Calcium 80 Mg Tablet) 80 mg PO BEDTIME [facility] Carvedilol (Carvedilol 12.5 Mg Tablet) 12.5 mg PO BID [facility]; Protocol Last Admin: 11/28/22 05:26 Dose: 12.5 mg Dextrose (Dextrose 50 % 25 Gm/50 Ml Syringe) 25 gm IVPUSH Q15M PRN; Protocol PRN Reason: per Hypoglycemia Standing Ord. Enoxaparin Sodium (Enoxaparin Sodium 30 Mg/0.3 Ml Syringe) 30 mg SUBCUT Q24H [facility] Fluoxetine HCl (Fluoxetine Hcl 20 Mg Capsule) 20 mg PO DAILY [facility] Furosemide (Furosemide 40 Mg Tablet) 40 mg PO DAILY [facility]; Protocol Glucose (Glucose Gel 15 Gm Gel..Gram.) 15 gm PO Q15M PRN; Protocol PRN Reason: per Hypoglycemia Standing Ord. Ceftriaxone Sodium 1 gm/ (Sodium Chloride) 50 mls @ 100 mls/hr IV Q24H [facility] Last Admin: 11/28/22 05:18 Dose: 100 mls/hr Insulin Glargine (Insulin Glargine,Hum.Rec.Anlog 100 Unit/Ml 10 Ml Vial) 70 unit SUBCUT BEDTIME [facility] Insulin Human Lispro (Insulin Lispro 100 Unit/Ml 3 Ml Vial) 0 unit SUBCUT QIDACHS [facility]; Protocol Lisinopril (Lisinopril 5 Mg Tablet) 5 mg PO DAILY [facility]; Protocol Loratadine (Loratadine 10 Mg Tablet) 10 mg PO DAILY [facility] Multivitamins/Vitamin C (Multivitamin Tablet) 1 tab PO DAILY [facility] Ondansetron HCl (Ondansetron Hcl 4 Mg/2 Ml Vial) 4 mg IVPUSH Q8H PRN PRN Reason: Nausea and Vomiting Oxycodone HCl (Oxycodone Hcl Immed Release 5 Mg Tablet) 5 mg PO Q6H PRN PRN Reason: Pain, Severe (Pain Scale 7-10) Pharmacy Consult (Consult Rx Perform Med Rec) 1 each MISCELLANE ONCE PRN PRN Reason: Consult order Sodium Chloride (0.9 % Sodium Chloride Flush 3 Ml Syringe) 3 ml IVFLUSH QSHIFT [facility] Home Medications Medication Instructions Recorded Confirmed Last Taken Type ascorbic acid (vitamin C) 500 mg 500 mg PO DAILY 09/22/20 11/27/22 11/27/22 History tablet fexofenadine 180 mg tablet 180 mg PO DAILY 09/22/20 11/27/22 11/27/22 History insulin lispro 100 unit/mL 0 sliding scale dose subcut QIDACHS 09/12/22 11/27/22 09/11/22 History subcutaneous pen multivitamin 1 tab PO DAILY 09/12/22 11/27/22 11/27/22 History atorvastatin 80 mg tablet 80 mg PO BEDTIME 11/27/22 11/27/22 11/26/22 History carvedilol 12.5 mg tablet 1 tab PO BID 11/27/22 11/27/22 11/27/22 09:00 History cholecalciferol (vitamin D3) 1,250 1,250 mcg PO PISANO@0900 11/27/22 11/27/22 11/27/22 History mcg (50,000 unit) capsule ferrous sulfate 325 mg (65 mg 325 mg PO DAILY 11/27/22 11/27/22 11/27/22 History iron) tablet Physical Exam Vital Signs and Narrative: Vital Signs: Last Vital Signs Temp 98.3 F 11/28/22 06:09 Pulse 72 11/28/22 06:09 Resp 16 11/28/22 06:09 BP 153/64 H 02/08/23 06:09 Pulse Ox 96 11/28/22 06:09 O2 Del Method 11/28/22 06:09 O2 Flow Rate 2 11/28/22 01:58 BMI result Body Mass Index 45.1 Const: General: cooperative and no acute distress Orientation/consciousness: patient oriented x3 Eyes: General: appearance normal, both eyes and all related structures Resp: Effort & Inspection: normal respiratory effort Auscultation: clear to auscultation bilaterally Cardio: Rate: regular rate Rhythm: regular rhythm GI: Palpation (GI): Soft to palpation Auscultation: normal bowel sounds Skin: General skin exam: no rashes or lesions noted Neuro: General: patient oriented x3 Cognition (Neuro): normal cognition Extrem: Other: tender lower back on palpation limitation to range of motion of lower extremity General: Yes normal to inspection and Yes no pedal edema Results Labs 11/27/22 18:12 11/27/22 22:06 Labs: Laboratory Results - last 24 hr 11/27/22 11/27/22 11/27/22 18:12 18:12 20:52 MCV 91.9 MCH 29.1 MCHC 31.6 RDW 14.2 Plt Count 379 MPV 9.6 Immature Gran % (Auto) 1.0 H Neut % (Auto) 73.0 Lymph % (Auto) 15.2 L Jackson % (Auto) 7.0 Eos % (Auto) 3.3 Baso % (Auto) 0.5 Lymph # (Auto) 1.7 Jackson # (Auto) 0.8 Eos # (Auto) 0.4 Baso # (Auto) 0.1 Abs Immat Gran (auto) 0.11 H Absolute Neuts (auto) 8.3 Absolute Nucleated RBC 0.000 Nucleated RBC % (auto) 0.0 Anion Gap 19 Estim Creat Clear Calc 23.1 Estimated GFR 18 POC Glucose Random Glucose 103 Calcium 9.3 D Urine Color Urine Appearance Urine pH Ur Specific Morrison Urine Protein Urine Glucose (UA) Urine Ketones Urine Blood Urine Nitrite Ur Leukocyte Esterase Urine RBC Urine WBC Ur Squamous Epith Cells Urine Bacteria Hyaline Casts COVID-19 (LUIS) Negative COVID-19 Clin Com See Note 11/27/22 11/27/22 11/28/22 22:06 22:40 05:06 MCV MCH MCHC RDW Plt Count MPV Immature Gran % (Auto) Neut % (Auto) Lymph % (Auto) Jackson % (Auto) Eos % (Auto) Baso % (Auto) Lymph # (Auto) Jackson # (Auto) Eos # (Auto) Baso # (Auto) Abs Immat Gran (auto) Absolute Neuts (auto) Absolute Nucleated RBC Nucleated RBC % (auto) Anion Gap 18 Estim Creat Clear Calc 25.2 Estimated GFR 20 POC Glucose 435 H* Random Glucose 204 H Calcium 8.7 D Urine Color Yellow Urine Appearance Clear Urine pH 7.0 Ur Specific Morrison 1.010 Urine Protein 300 (3+) H Urine Glucose (UA) Negative Urine Ketones Negative Urine Blood Negative Urine Nitrite Negative Ur Leukocyte Esterase Trace H Urine RBC 0-2 Urine WBC 11-20 H Ur Squamous Epith Cells 6-10 Urine Bacteria 4+ Hyaline Casts 0-2 COVID-19 (LUIS) COVID-19 Clin Com Imaging Radiologist's Impressions: Impressions Lumbar Spine X-Ray 11/27/22 17:55 IMPRESSION: *No evidence of acute vertebral compression fracture. *Grade 1 anterolisthesis of L4. *Lumbar spondylosis, more prominent severe L5-S1 disc degeneration. Abdomen/Pelvis CT 11/27/22 20:43 IMPRESSION: 1. No evidence of obstruction. A cause for the patient's acute renal failure has not been found. 2. Tiny punctate nonobstructing left renal calculus. 3. Other incidental findings as described above. Fleischner guidelines were followed. Assessment and Plan (1) Hypertensive urgency: Status: Acute (2) Acute on chronic kidney failure: Status: Acute (3) Back pain: Status: Acute Plan this is a 59-year-old female past medical history of hypertension, diabetes presents the hospital with complaints of back pain found to have a hypertensive urgency # hypertensive urgency - possibly associated with back pain, as well as acute setting in the hospital, patient reports that most times her blood pressure is well controlled at home - no headache, no change in vision, no chest pain - at this time will resume her home medications - pain control - monitor BP # acute on chronic kidney failure - possibly secondary to hypertension, versus dehydration - will treat with IV fluids - follow BMP # back pain - likely secondary to anterolisthesis grade 1 is seen on the [address] - recommended she follow with Orthopedic on discharge # UTI - asymptomatic - but given PACHECO will treat with IV antibiotics - triston see if cultures negative # CHF - at this time patient is not in exacerbation - continue home furosemide # chronic hypoxic respiratory failure - patient on baseline 2 L of oxygen - denies any history of COPD - has not required any more oxygen than her baseline # diabetes - low-dose sliding scale insulin - diabetic diet - continue home insulin DVT prophylaxis: Lovenox given patient's hypertension, PACHECO, patient requires minimum 2 nights in-patient stay for further management and monitoring Time Spent With Patient Time: Total time managing care of this patient today ____ minutes. Quality Stroke Does the patient have a stroke diagnosis?: No VTE Prior VTE?: No VTE Risk Level:: Medical - moderate - high VTE Device Contraindication: Treatment Not Indicated VTE Drug Contraindication: N/A - Med Ordered
[2022-11-28 06:48] LABS: Basophils Percent Auto 0.4 % (0-2); Hematocrit 33.9 % (37.0-47.0); Imm Gran Abs Auto 0.08 X10*3/uL (0.00-0.03); Imm Gran Pct Auto 0.8 % (0.0-0.4); Lymphocytes Absolute Auto 0.5 X10*3/uL (1.2-4.9); MANUAL DIFF FLAG SCAN; Mean Corpuscular HGB Conc 31.6 g/dl (31.0-35.0); Mean Corpuscular Hemoglobin 29.2 pg (27.0-33.0); Mean Corpuscular Volume 92.6 fL (80.0-98.0); Monocytes Percent Auto 0.4 % (2-11); Neutrophils Absolute Auto 9.6 x10*3/uL (2.0-8.3); Neutrophils Percent Auto 93.4 % (45-73); Platelet Count 341 X10*3/uL (160-400); Red Blood Count 3.66 X10*6/uL (4.20-5.50); Red Cell Distribution Width 13.9 % (11.0-16.0); SCAN SMEAR FLAG 1; White Blood Count 10.3 X10*3/uL (4.8-10.8)
[2022-11-28 07:00] LABS: Hemoglobin 10.7 g/dl (12.0-16.0)
[2022-11-28 07:07] LABS: Glucose, Whole Blood 399 mg/dL (60-115)
[2022-11-28] MEDS: 0.9 % Sodium Chloride Flush 3 ML SYRINGE IVFLUSH ×3 (07:17→21:51)
[2022-11-28] MEDS: FLUoxetine HCl 20 MG CAPSULE PO (07:17)
[2022-11-28] MEDS: Aspirin 81 MG TAB.CHEW PO (07:17)
[2022-11-28] MEDS: Enoxaparin Sodium 30 MG/0.3 ML SYRINGE SUBCUT (07:17)
[2022-11-28] MEDS: Ascorbic Acid 500 MG TABLET PO (07:17)
[2022-11-28] MEDS: Furosemide 40 MG TABLET PO (07:18)
[2022-11-28] MEDS: lisinopriL 5 MG TABLET PO (07:18)
[2022-11-28] MEDS: Multivitamin TABLET 1 TAB PO (07:18)
[2022-11-28] MEDS: Loratadine 10 MG TABLET PO (07:18)
[2022-11-28 07:32] LABS: Anion Gap 21 (12-20); Blood Urea Nitrogen 42 mg/dL (9-16); Calcium 8.4 mg/dL (8.4-10.2); Carbon Dioxide 19 mmol/L (22-29); Chloride 101 mmol/L (96-108); Creatinine Clr Calc Pharmacy 26.1; Estimated Glomerular Filt Rate 21; Glucose Random 504 mg/dL (60-115); Potassium 5.1 mmol/L (3.3-5.1); Sodium 136 mmol/L (135-145)
[2022-11-28 07:46] LABS: SLIDE REVIEW VERIFIED
[2022-11-28] MEDS: Insulin Lispro 100 UNIT/ML 3 ML VIAL SUBCUT ×4 (08:10→21:24)
[2022-11-28 10:56] LABS: Glucose, Whole Blood 334 mg/dL (60-115)
[2022-11-28] MEDS: Insulin Glargine,Hum.rec.anlog 100 UNIT/ML 10 ML VIAL 30 UNIT SUBCUT (11:35)
--- NOTE | 2022-11-28 13:34 | PM.EVENT ---
Event Note Date of Service: 11/28/22 Event Note: Seen and evaluated this morning Feels better overall Blood pressure better controlled but still elevated Pending urine culture Glucose elevated for not taking Lantus last night Continue to monitor Time Spent With Patient Time: Total time managing care of this patient today ____ minutes.
[2022-11-28] MEDS: amLODIPine Besylate 5 MG TABLET PO (14:00)
[2022-11-28 16:01] LABS: Glucose, Whole Blood 293 mg/dL (60-115)
[2022-11-28 19:46] LABS: Glucose, Whole Blood 267 mg/dL (60-115)
[2022-11-28] MEDS: Atorvastatin Calcium 80 MG TABLET PO (21:24)
[2022-11-28] MEDS: carvediloL 12.5 MG TABLET 25 MG PO (21:24)
[2022-11-28] MEDS: Insulin Glargine,Hum.rec.anlog 100 UNIT/ML 10 ML VIAL 70 UNIT SUBCUT (21:24)
[2022-11-28] MEDS: Acetaminophen 325 MG TABLET 650 MG PO (21:53)
[2022-11-29] VITALS: BP 139/63; PULSE 70; RESP 18; TEMP 37; O2SAT 94
[2022-11-29 03:09] VITALS: BP 148/70; PULSE 68; RESP 18; TEMP 36.9; O2SAT 98
[2022-11-29] MEDS: 0.9 % Sodium Chloride Flush 3 ML SYRINGE IVFLUSH (05:11)
[2022-11-29] MEDS: cefTRIAXone sodium 1 GM in 0.9 % Sodium Chloride 50 ML IV (05:11)
[2022-11-29 07:02] LABS: Hematocrit 31.2 % (37.0-47.0); Hemoglobin 9.8 g/dl (12.0-16.0); Mean Corpuscular HGB Conc 31.4 g/dl (31.0-35.0); Mean Corpuscular Volume 92.3 fL (80.0-98.0); Mean Platelet Volume 10.1 fL (9.4-12.3); Platelet Count 355 X10*3/uL (160-400); Red Blood Count 3.38 X10*6/uL (4.20-5.50); Red Cell Distribution Width 14.1 % (11.0-16.0); White Blood Count 13.6 X10*3/uL (4.8-10.8)
[2022-11-29 07:31] LABS: Glucose, Whole Blood 84 mg/dL (60-115)
[2022-11-29 07:33] VITALS: BP 111/58; PULSE 64; RESP 17; TEMP 36.2; O2SAT 92
[2022-11-29 07:35] LABS: Anion Gap 18 (12-20); Blood Urea Nitrogen 54 mg/dL (9-16); Calcium 8.5 mg/dL (8.4-10.2); Carbon Dioxide 21 mmol/L (22-29); Chloride 105 mmol/L (96-108); Creatinine Clr Calc Pharmacy 26.1; Estimated Glomerular Filt Rate 21; Glucose Random 90 mg/dL (60-115); Potassium 4.6 mmol/L (3.3-5.1); Sodium 139 mmol/L (135-145)
[2022-11-29] MEDS: FLUoxetine HCl 20 MG CAPSULE PO (07:55)
[2022-11-29] MEDS: Aspirin 81 MG TAB.CHEW PO (07:55)
[2022-11-29] MEDS: Ascorbic Acid 500 MG TABLET PO (07:56)
[2022-11-29] MEDS: amLODIPine Besylate 5 MG TABLET PO (07:56)
[2022-11-29] MEDS: lisinopriL 20 MG TABLET PO (07:56)
[2022-11-29] MEDS: Furosemide 40 MG TABLET PO (07:56)
[2022-11-29] MEDS: Multivitamin TABLET 1 TAB PO (07:56)
[2022-11-29] MEDS: Loratadine 10 MG TABLET PO (07:57)
[2022-11-29] MEDS: Enoxaparin Sodium 30 MG/0.3 ML SYRINGE SUBCUT (07:57)
[2022-11-29] MEDS: carvediloL 12.5 MG TABLET 25 MG PO (07:58)
[2022-11-29 11:20] LABS: Glucose, Whole Blood 97 mg/dL (60-115)
[2022-11-29 12:00] VITALS: BP 115/67; PULSE 65; RESP 17; TEMP 36.2; O2SAT 94
--- NOTE | 2022-11-29 12:22 | P.DS_ITS ---
DS: Providers Provider Date of Service: 11/29/22 Date of admission: 11/28/22 04:46 Primary care physician: Kristen Min NP DS: Diagnosis Discharge Diagnosis (1) Hypertensive urgency: Status: Acute (2) Acute on chronic kidney failure: Status: Acute (3) Back pain: Status: Acute (4) Acute hyperkalemia: Status: Acute DS: Summary Hospital Course Hospital Course: Admission note HPI ?this is a 59-year-old female with an extensive past medical history that includes CKD, type 2 diabetes insulin dependent, hypertension, obesity, AMY, with CPAP at bedtime,? and 2 L of oxygen at baseline hyperlipidemia, CHF on Lasix,, presents to the hospital with complaints of back pain.? Patient reports that the back pain been going on for the past? 1 week.? The pain is constant, in the lower? mid back, nonradiating, 8/10, associated with any numbness or tingling in her legs.? Patient reports that she has been taking Tylenol which has helped reduce her pain.? She otherwise denies any headache, no change in vision, no chest pain, no abdominal pain, no nausea or vomiting, no diarrhea constipation, no urinary symptoms and no lower extremity edema. On arrival to the ED patient initially had a documented blood pressure of 130/76 but all of a sudden increase to 222/87.? Patient reports that she has history of hypertension but takes lisinopril and carvedilol and is well controlled at home.? Patient received IV dose labetalol, 200 mg p.o. labetalol, Dilaudid for pain was slightly improved blood pressure. Her labs are significant for WBC count of 11.3, hemoglobin of 11.1, creatinine of? 2.64 which is slightly higher than her baseline,? UA positive for leukocyte Estrace and WBC, Abdomen pelvic CT shows no evidence of obstruction, no cause for the patient's acute renal failure, osseous structures show L4-L5 grade 1 anterolisthesis Hospital course The patient was admitted to the hospital for treatment of hypertensive urgency with elevated blood pressure readings requiring IV labetalol and oral antihypertensive medications with fair response as blood pressure start to go down with increasing dosage of carvedilol and lisinopril. The patient reported edema with amlodipine usage before so it was discontinued. She was noted to have urine infection. Treated with IV antibiotic of ceftriaxone. Urine culture still pending upon discharge but growing Gram- negative rods. Increase carvedilol to 25 mg twice daily Increase lisinopril to 10 mg daily Finish 4 more days of Ceftin Monitor your blood pressure at home and reported 1 week readings to your PCP for further adjustments of medications Time Spent with Patient Time attestation: Total time managing care of this patient today ____ minutes. Discharge coordination time: Less than 30 minutes Quality: Safe Use of Opioids Does Pt have an Active Cancer Diagnosis on the Problem List?: No Quality: Stroke Does the patient have a stroke diagnosis?: No Physical Exam Vital Signs: Vital Signs: Last Vital Signs Temp 97.2 F 11/29/22 07:33 Pulse 64 11/29/22 07:33 Resp 17 11/29/22 07:33 BP 111/58 L 11/29/22 07:33 Pulse Ox 92 11/29/22 07:33 O2 Del Method 11/29/22 07:33 O2 Flow Rate 2 11/29/22 03:09 BMI result Body Mass Index 45.1 Const: Other: Constitutional : Awake, interactive, morbidly obese, not in distress Neck : Normal inspection, Supple Cardiovascular : RRR, no JVP, no lower extremity edema Respiratory : good bilateral air entry, no crackles, wheezes or rhonchi Gastrointestinal: soft, lax, Normal bowel sounds, Non tender Skin : Warm, Dry Neurological : Alert & oriented x3, No focal deficit DS: Data Data Completed and Pending Completed studies during hospitalization [Text1]: Procedures Insertion of Infusion Device into Superior Vena Cava, Percutaneous Approach (09/12/22) Ultrasonography of Superior Vena Cava, Guidance (09/12/22) Labs on day of discharge: Laboratory Results - last 24 hr 11/28/22 11/28/22 11/29/22 15:45 19:41 05:42 WBC 13.6 H RBC 3.38 L Hgb 9.8 L Hct 31.2 L MCV 92.3 MCH 29.0 MCHC 31.4 RDW 14.1 Plt Count 355 MPV 10.1 Absolute Nucleated RBC 0.000 Nucleated RBC % (auto) 0.0 Sodium Potassium Chloride Carbon Dioxide Anion Gap BUN Creatinine Estim Creat Clear Calc Estimated GFR POC Glucose 293 H 267 H Random Glucose Calcium 11/29/22 11/29/22 11/29/22 05:42 07:19 11:11 WBC RBC Hgb Hct MCV MCH MCHC RDW Plt Count MPV Absolute Nucleated RBC Nucleated RBC % (auto) Sodium 139 Potassium 4.6 Chloride 105 Carbon Dioxide 21 L Anion Gap 18 BUN 54 H Creatinine 2.34 H Estim Creat Clear Calc 26.1 Estimated GFR 21 POC Glucose 84 97 Random Glucose 90 Calcium 8.5 Preliminary micro results at discharge 11/27/22 00:00 Urine Culture - Preliminary Urine clean catch - Urine sosa top Gram negative reba Imaging CT scan - abdomen: Radiologist's impression: ITS Impressions Lumbar Spine X-Ray 11/27/22 17:55 IMPRESSION: *No evidence of acute vertebral compression fracture. *Grade 1 anterolisthesis of L4. *Lumbar spondylosis, more prominent severe L5-S1 disc degeneration. Abdomen/Pelvis CT 11/27/22 20:43 IMPRESSION: 1. No evidence of obstruction. A cause for the patient's acute renal failure has not been found. 2. Tiny punctate nonobstructing left renal calculus. 3. Other incidental findings as described above. Fleischner guidelines were followed. Discharge Plan Discharge Anticipated Discharge Date/Time: 11/29/22 12:10 Patient Disposition: Home, Self-Care Discharge Diagnosis: Hypertensive urgency Urine infection Referrals: Kristen Min NP [Primary Care Provider] - 1 Week Discharge Medications: New carvedilol 12.5 mg Tablet 25 mg PO BID Qty: 60 0RF Protocol: Hold for SBP/HR < HOLD for SBP < : 90 HOLD for HR < : 60 lisinopril 10 mg Tablet 10 mg PO DAILY Qty: 30 0RF Protocol: Hold for SBP< HOLD for SBP < : 90 cefuroxime axetil 500 mg tablet 500 mg PO BID Qty: 8 0RF Continued fluoxetine 20 mg capsule 20 mg PO DAILY 90 Days Qty: 90 3RF furosemide 40 mg tablet 40 mg PO DAILY 30 Days Qty: 30 1RF insulin lispro 100 unit/mL insulin pen 0 sliding scale dose subcut QIDACHS Protocol: Insulin Correction Scale Less than or equal to 110 ---- Give (units): 0 111 to 150 Give (units): 0 151 to 200 Give (units): 2 201 to 250 Give (units): 4 251 to 300 Give (units): 6 301 to 350 Give (units): 8 Greater than 350 Give (units): 10 Call MD if Blood Glucose > : 350 multivitamin Tablet 1 tab PO DAILY aspirin 81 mg Tablet,Chewable 81 mg PO DAILY Qty: 30 0RF atorvastatin 80 mg tablet 80 mg PO BEDTIME ferrous sulfate 325 mg (65 mg iron) Tablet 325 mg PO DAILY cholecalciferol (vitamin D3) 1,250 mcg (50,000 unit) capsule 1,250 mcg PO PISANO@0900 fexofenadine 180 mg tablet 180 mg PO DAILY ascorbic acid (vitamin C) 500 mg tablet 500 mg PO DAILY Lantus Solostar U-100 Insulin 100 unit/mL (3 mL) insulin pen 70 unit subcut BEDTIME Qty: 15 12RF Discontinued lisinopril 5 mg tablet 5 mg PO DAILY Qty: 30 0RF Protocol: Hold for SBP< HOLD for SBP < : 90 carvedilol 12.5 mg tablet 1 tab PO BID Discharge Orders: Discharge Order (Routine); Ordered 11/29/22 Ordered By: Fredrick Thompson Diet: Advance to usual diet Activity on Discharge: As tolerated Stand Alone Forms: Patient Portal Discharge page Care Plan Goals: Read below Health Concerns: Read below Plan of Treatment: Read below Assessment: You were admitted to the hospital for evaluation of back pain. Found to have an evidence of urine infection treated with IV antibiotics with good response. Your blood pressure was noted to be significantly elevated requiring IV and p.o. medications to get it under control. Will increase your home doses of carvedilol and lisinopril. Increase carvedilol to 25 mg twice daily Increase lisinopril to 10 mg daily Finish 4 more days of Ceftin Monitor your blood pressure at home and reported 1 week readings to your PCP for further adjustments of medications
== END 2022-11-29 13:53 | disposition home or self-care (01) ==
LOC: HO.ED 22:27 → HO.EDOVER 11-28 04:53 → HO.S3 11-28 09:18
PROVIDERS: Admitting Provider Internal Medicine; Emergency Provider Student in an Organized Health Care Education/Training Program; PCP Hospitalist; Visit Provider Student in an Organized Health Care Education/Training Program
DX: I16.0 Hypertensive urgency (principal); N39.0 Urinary tract infection, site not specified; M54.9 Dorsalgia, unspecified; I13.0 Hypertensive heart and chronic kidney disease with heart failure and stage 1 through stage 4 chronic kidney disease, or unspecified chronic kidney disease; I50.9 Heart failure, unspecified; N18.9 Chronic kidney disease, unspecified; N17.9 Acute kidney failure, unspecified; E11.22 Type 2 diabetes mellitus with diabetic chronic kidney disease; E87.5 Hyperkalemia; J96.91 Respiratory failure, unspecified with hypoxia; Z79.4 Long term (current) use of insulin
CPT/HCPCS: 36415; 72100; 74176; 80048; 81001; 82947; 85025; 85027; 87086; 87088; 87186; 87635; 93005; 99221; 99285; J0611; J0696; J1170; J1650; J2270; J2405

== ENCOUNTER 2022-12-06 10:17 | Outpatient (REF) | payer MEDICARE, SELFPAY ==
[2022-12-06 13:43] LABS: Hematocrit 35.1 % (37.0-47.0); Hemoglobin 10.9 g/dl (12.0-16.0); Mean Corpuscular HGB Conc 31.1 g/dl (31.0-35.0); Mean Corpuscular Hemoglobin 29.6 pg (27.0-33.0); Mean Corpuscular Volume 95.4 fL (80.0-98.0); Mean Platelet Volume 10.6 fL (9.4-12.3); Platelet Count 402 X10*3/uL (160-400); Red Blood Count 3.68 X10*6/uL (4.20-5.50); Red Cell Distribution Width 14.4 % (11.0-16.0); White Blood Count 11.5 X10*3/uL (4.8-10.8)
[2022-12-06 14:01] LABS: Appearance Urine Clear; Color Urine Yellow; Glucose Urine UA Negative (Negative); Leukocyte Esterase Urine Negative (Negative); Nitrite Urine Negative (Negative); Specific Gravity - Urine 1.015 (1.005-1.025); UMIC TRIGGER UA YES; Urine Blood Negative (Negative); Urine Ketones Negative (Negative); Urine Protein 300 (3+) mg/dL (Neg-Trace)
[2022-12-06 14:04] LABS: Bacteria Urine None Seen (None Seen); RBC Urine 0-2 /HPF (0-2); Squamous Epithelial Cell Urine 0-2 /HPF (0-2); WBC Urine 0-5 /HPF (0-5)
[2022-12-06 14:12] LABS: Alanine Aminotransferase 21 U/L (0-31); Albumin Level 3.7 g/dL (3.5-5.0); Alkaline Phosphatase 127 U/L (39-117); Anion Gap 16 (12-20); Aspartate Amino Transferase 20 U/L (5-31); Bilirubin Direct < 0.2 mg/dL (0.0-0.5); Bilirubin Total 0.3 mg/dL (0.0-1.0); Blood Urea Nitrogen 54 mg/dL (9-16); Calcium 8.9 mg/dL (8.4-10.2); Carbon Dioxide 20 mmol/L (22-29); Chloride 112 mmol/L (96-108); Estimated Glomerular Filt Rate 21; Glucose Random 93 mg/dL (60-115); Potassium 5.1 mmol/L (3.3-5.1); Sodium 143 mmol/L (135-145); Total Protein 6.4 g/dL (6.5-8.0)
== END 2022-12-06 10:18 | disposition home or self-care (01) ==
LOC: HO.WFDLDS 10:17
PROVIDERS: Internal Medicine Cardiovascular Disease; Visit Provider Hospitalist
DX: D72.829 Elevated white blood cell count, unspecified (principal); E87.8 Other disorders of electrolyte and fluid balance, not elsewhere classified; R74.8 Abnormal levels of other serum enzymes
CPT/HCPCS: 36415; 80048; 80076; 81001; 81003; 85027

== ENCOUNTER 2023-01-08 12:47 | Outpatient (REF) | payer MEDICARE, SELFPAY ==
--- NOTE | ~2023-01-08 | MM_ITS ---
EXAMINATION: MM SCREENING DIGITAL BREAST TOMOSYNTHESIS, BILATERAL CLINICAL INFORMATION: Screening. Asymptomatic. Family history breast cancer, sister. The lifetime risk of breast cancer based on the Tyrer-Cuzick Model is 9%. COMPARISON: Mammography: 07/19/2020, outside exam 10/02/2017 ([facility]). TECHNIQUE: Digital breast tomosynthesis is performed in both the craniocaudal and mediolateral oblique views along with computer-aided detection (CAD). Synthesized 2D images are generated from the tomosynthesis. Additional bilateral exaggerated CC and bilateral MLO views are provided. FINDINGS: There are scattered areas of fibroglandular density (ACR BI-RADS breast composition Category b). There are no significant masses, abnormal calcifications, or other abnormalities. Breast tissue composition borders on predominantly fatty. There is a dermal lesion overlying the mid medial left breast. No developing density or interval architectural abnormality. The axilla are unremarkable. No significant changes. MM/MM tomosynthesis screening BI IMPRESSION: No mammographic evidence of malignancy. ASSESSMENT: BI-RADS 2: Benign RECOMMENDATION: Routine annual mammography screening. This patient's information was entered into a reminder system with a target due date for their next mammogram.
== END 2023-01-08 12:48 | disposition home or self-care (01) ==
LOC: HO.MAMMO 12:47
PROVIDERS: PCP Hospitalist; Visit Provider Hospitalist
DX: Z12.31 Encounter for screening mammogram for malignant neoplasm of breast (principal)
CPT/HCPCS: 77063; 77067

== ENCOUNTER → 2023-02-11 09:13 | Outpatient (BNVA) | payer MEDICARE, SELFPAY | PROVIDERS: PCP Hospitalist; Visit Provider Internal Medicine | DX: G47.33 Obstructive sleep apnea (adult) (pediatric) (principal); G47.34 Idiopathic sleep related nonobstructive alveolar hypoventilation; Z99.89 Dependence on other enabling machines and devices | CPT/HCPCS: 99212 ==

== ENCOUNTER → 2023-02-19 11:59 | Outpatient (BNVA) | payer MEDICARE, SELFPAY | PROVIDERS: PCP Hospitalist; Visit Provider Physician Assistant | DX: Z12.11 Encounter for screening for malignant neoplasm of colon (principal); D64.9 Anemia, unspecified; R09.02 Hypoxemia; Z99.81 Dependence on supplemental oxygen | CPT/HCPCS: 99202 ==

== ENCOUNTER → 2023-03-27 10:29 | Outpatient (BNVA) | payer MEDICARE, SELFPAY | PROVIDERS: PCP Hospitalist; Referring Provider Hospitalist; Visit Provider Internal Medicine Cardiovascular Disease | DX: I50.9 Heart failure, unspecified (principal); I35.0 Nonrheumatic aortic (valve) stenosis | CPT/HCPCS: 99212 ==

== ENCOUNTER 2023-06-20 15:19 | Outpatient (REF) | payer MEDICARE, SELFPAY ==
[2023-06-20 16:58] LABS: Anion Gap 20 (12-20); Blood Urea Nitrogen 50 mg/dL (9-16); Calcium 9.3 mg/dL (8.4-10.2); Carbon Dioxide 19 mmol/L (22-29); Chloride 107 mmol/L (96-108); Estimated Glomerular Filt Rate 20; Glucose Random 158 mg/dL (60-115); Potassium 3.5 mmol/L (3.3-5.1); Sodium 142 mmol/L (135-145)
[2023-06-20 17:02] LABS: B Type Natriuretic Peptide 105 pg/mL (<100)
== END 2023-06-20 15:20 | disposition home or self-care (01) ==
LOC: HO.HMGCLDS 15:19
PROVIDERS: PCP Hospitalist; Visit Provider Internal Medicine Cardiovascular Disease
DX: I11.0 Hypertensive heart disease with heart failure (principal); I50.9 Heart failure, unspecified
CPT/HCPCS: 36415; 80048; 83880

== ENCOUNTER 2023-06-25 15:19 | Outpatient (REF) | payer MEDICARE, SELFPAY ==
[2023-06-25 17:04] LABS: B Type Natriuretic Peptide 495 pg/mL (<100)
[2023-06-25 17:21] LABS: Anion Gap 16 (12-20); Blood Urea Nitrogen 53 mg/dL (9-16); Calcium 7.9 mg/dL (8.4-10.2); Carbon Dioxide 20 mmol/L (22-29); Chloride 107 mmol/L (96-108); Estimated Glomerular Filt Rate 13; Potassium 3.8 mmol/L (3.3-5.1); Sodium 139 mmol/L (135-145)
[2023-06-25 18:52] LABS: Glucose Random 381 mg/dL (60-115)
== END 2023-06-25 15:20 | disposition home or self-care (01) ==
LOC: HO.HMGCLDS 15:19
PROVIDERS: PCP Hospitalist; Visit Provider Internal Medicine Cardiovascular Disease
DX: I50.9 Heart failure, unspecified (principal)
CPT/HCPCS: 36415; 80048; 83880

== ENCOUNTER 2023-07-01 15:09 | Outpatient (REF) | payer MEDICARE, SELFPAY ==
[2023-07-01 16:20] LABS: B Type Natriuretic Peptide 148 pg/mL (<100)
[2023-07-01 16:56] LABS: Anion Gap 15 (12-20); Blood Urea Nitrogen 40 mg/dL (9-16); Calcium 9.3 mg/dL (8.4-10.2); Carbon Dioxide 23 mmol/L (22-29); Chloride 109 mmol/L (96-108); Estimated Glomerular Filt Rate 18; Glucose Random 209 mg/dL (60-115); Potassium 4.4 mmol/L (3.3-5.1); Sodium 143 mmol/L (135-145)
== END 2023-07-01 15:10 | disposition home or self-care (01) ==
LOC: HO.HMGCLDS 15:09
PROVIDERS: PCP Hospitalist; Visit Provider Internal Medicine Cardiovascular Disease
DX: I50.9 Heart failure, unspecified (principal); N18.9 Chronic kidney disease, unspecified
CPT/HCPCS: 36415; 80048; 83880

== ENCOUNTER → 2023-07-15 12:54 | Outpatient (REF) | payer MEDICARE, OTHER, SELFPAY ==
--- NOTE | 2023-07-15 12:57 | CA_ITS ---
Transthoracic Echocardiogram Patient (Last, First, Middle): Amaris Hook E Gender: Female Date of : 1955 Age: 68 Procedure Date: 07/15/2023 Procedure Type: Transthoracic Echocardiogram Location: OP Height: 157.48 cm Weight: 113.4 kg BSA: 2.10 m2 Heart Rate: 67 bpm BP: 120 / 74 mmHg Sld Inclusion Teacher: JESSICA Referring MD: Aidan Penn MD Feather Boner: Aidan Penn MD Symptoms: I10 - Essential (primary) hypertension Study Quality: Technically Difficult ECG Rhythm: Sinus Conclusions: - 1. Normal LV ejection fraction 60 65% with elevated filling pressures 2. Mildly dilated left atrium 3. [id number]-[id number] aortic stenosis 4. Mildly dilated ascending aorta at 3.7 cm 5. No gross pericardial effusion Findings Procedure Information Contrast agent, definity, is being given per protocol without apparent complications. Left Ventricle Normal left ventricular size and systolic function. The visually estimated ejection fraction is between 60-65%. Spectral Doppler is indicative of an impaired relaxation filling pattern. E/E prime ratio is >15, consistent with elevated filling pressures. Right Ventricle Normal right ventricular cavity size. There is normal right ventricular systolic function. Atria The left atrium is mildly dilated. There is no evidence of interatrial shunt. The right atrium is normal in size. Aortic Valve The aortic valve was not well visualized. There is mild calcification of the aortic valve. There is mild to moderate aortic valve stenosis. The peak aortic gradient is 27 mmHg.The mean gradient is 14 mmHg. The aortic valve area is 1.43 cm2. There is no aortic valve regurgitation. Mitral Valve There is mild anterior mitral leaflet thickening. There is mild mitral annular calcification. There is trace mitral valve regurgitation. There is no mitral valve stenosis. Pulmonic Valve The pulmonic valve was not well visualized. Tricuspid Valve Likely normal tricuspid valve structure and function. Normal right atrial pressure. Great Vessels The pulmonary artery was not well visualized. There is mild dilatation of the ascending aorta measuring 3.70 cm. Venous The inferior vena cava is normal in size and collapses greater than 50% with inspiration. Pericardium/Pleural There is no evidence of pericardial effusion. Prior Study Comparison No significant change compared to prior study dated: 06/20/2022. Measurements 2D Linear Measurements IVSd: 1.34 0.6-0.9/0.6-1.0 cm LVIDd: 4.96 3.9-5.3/4.2-5.9 cm LVIDd Index: 2.36 2.4-3.2/2.2-3.1 cm/m2 LVIDs: 3.14 2.0-3.6 cm LVPWd: 0.88 0.7-1.1 cm LA Diam: 4.50 2.7-3.8/3.0-4.0 cm LAIDs Index: 2.14 1.5-2.3 cm/m2 LV Mass: 257.73 67-162/88-224 g LV Mass Index: 122.73 43-95/49-115 g/m2 LVOT Diam: 2.10 3.0+(-)1.3 cm 2D Systolic Function EF Teich: 66.00 >55% EF 4C: 63.90 >55% Mitral Valve MV Pk E: 1.14 MV PK A: 1.16 MV Decel Time: 192.00 E/A: 1.00 E'Lateral: 6.20 E'Medial: 5.77 E/E' Med: 19.80 E/E' Lat: 18.40 PHT: 56.00 MVA PHT: 3.93 Decel [place]: 5.93 Aortic Valve AoV Pk Manny: 2.61 AoV Mn Manny: 1.77 AoV VTI: 0.60 AoV Pk Grad: 27.00 Aov Mn Grad: 14.00 MEIR Cont.VTI: 1.43 LVOT LVOT Pk Manny: 1.01 LVOT Mn Manny: 0.76 LVOT VTI: 0.25 LVOT Pk Grad: 4.00 LVOT Mn Grad: 3.00 LVOT Diam: 2.10 LVOT Area: 3.46 Diastolic Function MV Pk E: 1.14 MV Pk A: 1.16 E/A: 1.00 E'Medial: 5.77 E/E' Med: 19.80 E' Laterial: 6.20 E/E' Lat: 18.40 Right Ventricle TAPSE (mm): 27.00 TVS' Manny: 16.50 Tricuspid Valve RA Press: 3.00 Great Vessels Aorta Sinus of Valsalva: 2.90 2.0-3.5 cm Ao Asc: 3.70 2.1-3.4 cm Pulmonary Veins Pulm Vein S/D 1.10 Pulmonary Valve PV Pk Manny: 0.92 Peak PV Grad: 3.00 Updated in Other Vendor System with Status of Final Aidan Penn MD electronically signed on 07/16/2023 11:11:20 AM with status of Final
== END ==
LOC: HO.CARD 12:54
PROVIDERS: PCP Hospitalist; Visit Provider Internal Medicine Cardiovascular Disease
DX: I11.0 Hypertensive heart disease with heart failure (principal); I50.9 Heart failure, unspecified
CPT/HCPCS: 93306; Q9957

== ENCOUNTER → 2023-07-15 12:57 | Outpatient (BNV) | payer MEDICARE, SELFPAY | PROVIDERS: PCP Hospitalist; Visit Provider Internal Medicine Cardiovascular Disease | DX: I35.0 Nonrheumatic aortic (valve) stenosis (principal) | CPT/HCPCS: 93306 ==

== ENCOUNTER 2023-08-01 13:04 | Inpatient (IN) | payer MEDICARE, SELFPAY ==
--- NOTE | ~2023-08-01 | XR_ITS ---
EXAMINATION: XR CHEST CLINICAL INFORMATION: Follow-up pneumonia. COMPARISON: Chest radiograph dated 08/01/2023. TECHNIQUE: Frontal and lateral views of the chest were obtained. FINDINGS: There is stable cardiomegaly. There are patchy infiltrates within the right upper and lower lung [place]. This is most pronounced within the upper lobe. There is mild elevation of the right hemidiaphragm. The left lung is relatively clear. No pleural effusion or pneumothorax seen. There is no acute osseous abnormality. XR/XR chest 2V IMPRESSION: There are patchy right lung infiltrates, relatively stable from 08/01/2023. Lung volumes are now somewhat diminished.
--- NOTE | ~2023-08-01 | XR_ITS ---
EXAMINATION: XR CHEST CLINICAL INFORMATION: Shortness of breath. COMPARISON: Chest radiograph 09/12/2022. TECHNIQUE: PA view of the chest was obtained. FINDINGS: Stable prominence of the cardiomediastinal silhouette. New multifocal airspace opacities, largest projecting over the right mid to upper lung. Suspect trace amount of right-sided pleural fluid versus pleural thickening. No pneumothorax. No acute osseous findings. The visualized upper abdomen is within normal limits. XR/XR chest 1V IMPRESSION: New multifocal airspace opacities concerning for an atypical pneumonia. Recommend a follow-up examination after treatment to ensure adequate resolution.
--- NOTE | 2023-08-01 13:19 | ECG_ITS ---
Test Reason : PAIN Blood Pressure : / mmHG Vent. Rate : 125 BPM Atrial Rate : 265 BPM P-R Int : 000 ms QRS Dur : 102 ms QT Int : 362 ms P-R-T Axes : 000 025 -64 degrees QTc Int : 522 ms Atrial flutter with variable A-V block Nonspecific ST and T wave abnormality Abnormal ECG When compared with ECG of 27-NOV-2022 20:15, Atrial flutter has replaced Sinus rhythm Vent. rate has increased BY [address] now depressed in Inferior leads Lateral leads Referred By: Tim Chapman Electronically Signed By:AMBER BUSH MD
--- NOTE | 2023-08-01 13:20 | ED_ITS ---
HPI - General Adult General Chief complaint: Dyspnea Stated complaint: sob, Time Seen by Provider: 08/01/23 15:47 Source: patient Mode of arrival: ambulatory Limitations: no limitations History of Present Illness HPI narrative: 68-year-old female presents emergency department with worsening shortness of breath past few days. Patient is on Lasix at baseline history of CHF history of pneumonia she is on 2 L at baseline has been requiring 4 L to me not to be hypoxic she presents to the emergency from his x-ray and lab swabs done she is no COVID or RSV or influenza. She does have signs of CHF and elevated BNP and signs of atypical pneumonia. Do think this likely CHF exacerbation although pneumonia considered beyond the differential Onset (ago): day(s) Related Data Home Medications Medication Instructions Recorded Confirmed ascorbic acid (vitamin C) 500 mg 500 mg PO DAILY 09/22/20 08/01/23 tablet fexofenadine 180 mg tablet 180 mg PO DAILY 09/22/20 08/01/23 multivitamin 1 tab PO DAILY 09/12/22 08/01/23 cholecalciferol (vitamin D3) 1,250 1,250 mcg PO PISANO@0900 11/27/22 08/01/23 mcg (50,000 unit) capsule ferrous sulfate 325 mg (65 mg 325 mg PO DAILY 11/27/22 08/01/23 iron) tablet atorvastatin 80 mg tablet 80 mg PO BEDTIME 08/01/23 08/01/23 carvedilol 25 mg tablet 25 mg PO BID@0900,1500 08/01/23 08/01/23 fluoxetine 20 mg capsule 40 mg PO DAILY 08/01/23 08/01/23 hydralazine 25 mg tablet 25 mg PO BID@0900,1500 08/01/23 08/01/23 insulin lispro 100 unit/mL See Rx Instructions subcut QID 08/01/23 08/01/23 subcutaneous pen sodium polystyrene sulfonate 15 g PO 3XW 08/01/23 08/01/23 Previous Rx's Medication Instructions Recorded aspirin 81 mg chewable tablet 81 mg PO DAILY #30 tabs 09/16/22 FreeStyle Robert 2 Sensor (flash #2 ea 12/19/22 glucose sensor) insulin glargine 100 unit/mL (3 70 unit (0.7 mL) subcut BEDTIME 12/21/22 mL) subcutaneous pen (Lantus #15 mL Solostar U-100 Insulin) FreeStyle Robert 2 [place] (flash #1 ea 12/24/22 glucose scanning reader) lisinopril 10 mg tablet 10 mg PO DAILY #90 tabs 01/21/23 furosemide 40 mg tablet 40 mg PO DAILY #30 tabs 01/28/23 Allergies Allergy/AdvReac Type Severity Reaction Status Date / Time penicillin V Allergy Severe joint Verified 08/01/23 13:25 swelling and rash amlodipine [From [facility]] AdvReac Intermediate edema Verified 08/01/23 13:25 Review of Systems 2 Review of Systems: Review of systems: General: Patient denies any fever chills recent illness or falls Musculoskeletal: Denies back pain or body aches or other injuries HEENT: denies headache, runny nose, ear pain Respiratory: shortness of breath, cough Cardiovascular: no chest pain or palpitations : denies dysuria, frequency Abdomen: no nausea vomiting denies abdominal pain Extremities: no swelling, no pain Skin: no diaphoresis Yes all other systems are reviewed and are negative [facility] Past Medical History Medical History Acute renal failure Anemia Bilateral lower extremity edema Chronic renal failure Congestive heart failure Diabetes type 2, controlled Diabetes type 2, uncontrolled Elevated creatine kinase High cholesterol HTN (hypertension) Hypertension, essential Morbid obesity Morbid obesity due to excess calories Nocturnal hypoxemia Obesity AMY (obstructive sleep apnea) AMY on CPAP Pneumonia Secondary aldosteronism Surgical History History of D&C History of surgery Family History Family History Father Stroke Mother Stroke Hypertension Diabetes Maternal Grandmother Diabetes Hypertension Stroke Sister Diabetes Breast cancer Son Bipolar 1 disorder Overweight Other Mental health problem Substance abuse Social History Social History Household Members: Family Housing: House Do you presently have visiting nurse or other home services: No Unable to assess alcohol history related to: Unable to respond Alcohol intake: never Patient Tobacco Use Status: Never used Tobacco Smoked in Last 30 Days: No e-Cigarette/Vaping Use: Never Used Advance Directives: Yes Advance Directives on File: Yes Advance Directives Date on File: 06/09/21 service: No Current occupational status: employed Cognitive needs: No Hearing needs: No Vision needs: Yes Physical Exam ED Vital Signs: Vital Signs - 24 hr 08/01/23 13:21 Temperature 99.7 F Pulse Rate 133 H Respiratory Rate 20 Blood Pressure 121/77 Pulse Oximetry 98 Oxygen Delivery Method Nasal Cannula BMI result Body Mass Index 43.9 General: Well-appearing well-nourished in no signs of distress HEENT: Normocephalic atraumatic Neck: No signs of JVD, no masses no tenderness or lymphadenopathy Cardiovascular: Regular rate and rhythm Respiratory: Rales to bilaterally lower lung [place] Abdomen: Soft nontender no masses Extremities: Normal pedal pulses 1 to 2+ signs of edema Skin: Dry warm no rashes Back: No tenderness full ROM Course Course Course Narrative: RME- 68-year-old female presents for evaluation of shortness of breath. She is oxygen dependent at 2 L at baseline. She is on 4 L currently. Reported worsening cough over the last week. Positive sick contacts. Denies any fevers, chills. Plan for labs, chest x-ray, viral swab Medical Decision Making Medical Decision Making [facility] Narrative: I feel this is most likely CHF exacerbation and the patient Lasix and also 50 cc of fluid per hours she really has no elevated creatinine at baseline the patient benefit from admission also give some antibiotics as there is no lactic done on the patient arrived here I did add that on to the testing I will admit the patient here for CHF exacerbation Differential Diagnosis Differential Diagnoses: The differential diagnosis associated with the presentation includes CHF exacerbation pneumonia COPD exacerbation shortness of breath hypoxia sepsis Admission/Observation Consideration of admission/observation: Escalation of care including admission/observation considered Element for CHF exacerbation with possibly superimposed pneumonia Consult Healthcare Provider Management of the patient was discussed with: Hospitalist Lab Data [facility] Lab Attestation statement: I reviewed the patient's lab results. Creatinine appears to be baseline white blood cell count be due to pneumonia or steroid use 08/01/23 14:15 08/01/23 14:15 Labs: Lab Results 08/01/23 08/01/23 Range/Units 14:15 16:31 WBC 22.0 H (4.8-10.8) X10*3/uL RBC 2.75 L D (4.20-5.50) X10*6/uL Hgb 7.9 L D (12.0-16.0) g/dl Hct 25.1 L D (37.0-47.0) % MCV 91.3 (80.0-98.0) fL MCH 28.7 (27.0-33.0) pg MCHC 31.5 (31.0-35.0) g/dl RDW 15.3 (11.0-16.0) % Plt Count 460 H (160-400) X10*3/uL MPV 9.9 (9.4-12.3) fL Immature Gran % (Auto) Cancelled Neut % (Auto) Cancelled Lymph % (Auto) Cancelled [place] % (Auto) Cancelled Eos % (Auto) Cancelled Baso % (Auto) Cancelled Lymph # (Auto) Cancelled [place] # (Auto) Cancelled Eos # (Auto) Cancelled Baso # (Auto) Cancelled Abs Immat Gran (auto) Cancelled Absolute Neuts (auto) Cancelled Absolute Nucleated RBC 0.020 H (0.0-0.012) X10*3/uL Nucleated RBC % (auto) 0.1 (0.0-0.2) /100WBC Neutrophils % (Manual) 92 H (45-73) % Band Neutrophils % 2 L (3-5) % Lymphocytes % (Manual) 4 L (20-40) % Monocytes % (Manual) 2 (2-11) % Abs Neuts (Manual) 20.7 H (2.0-8.3) X10*3/uL Lymphocytes # (Manual) 0.9 L (1.2-4.9) X10*3/uL Monocytes # (Manual) 0.4 (0.1-1.2) X10*3/uL Nucleated RBCs 1 H (0-0) /100WBC Platelet Estimate INCREASED (NORMAL) Plt Morphology Comment NORMAL RBC Morphology NOTED Polychromasia 1+ (0-2) /OIF Ovalocytes 1+ (5-14) /OIF [place] Cells 1+ (0-2) /OIF Sodium 142 (135-145) mmol/L Potassium 3.7 (3.3-5.1) mmol/L Chloride 110 H (96-108) mmol/L Carbon Dioxide 19 L (22-29) mmol/L Anion Gap 17 (12-20) BUN 54 H (9-16) mg/dL Creatinine 3.09 H (0.5-1.4) mg/dL Estim Creat Clear Calc 19.9 Estimated GFR 15 Random Glucose 68 (60-115) mg/dL Lactic Acid 0.7 (0.5-2.0) mmol/L Calcium 9.2 (8.4-10.2) mg/dL Total Bilirubin 0.4 (0.0-1.0) mg/dL AST 56 H (5-31) U/L ALT 65 H (0-31) U/L Alkaline Phosphatase 169 H (39-117) U/L Troponin I High Sens 26.5 H (<3.5-17.0) ng/L B-Natriuretic Peptide 1409 H (<100) pg/mL Total Protein 6.7 (6.5-8.0) g/dL Albumin 2.8 L (3.5-5.0) g/dL Lipase 14 (8-78) U/L Influenza Type A (PCR) NEGATIVE (Negative) Influenza Type B (PCR) NEGATIVE (Negative) RSV RNA Qual (PCR) NEGATIVE (Negative) SARS-CoV-2 RNA (RT-PCR) NEGATIVE (Negative) Independent Interpretation I performed an independent interpretation of an: EKG and Plain X-Ray Interpretation: Rate 133 concerning for Atrial flutter. I will repeat I will start on xarelto. Radiology Impression Discussion of test interpretation with radiology: I have reviewed the radiologist's reading. External Record Review External record reviewed: Inpatient record Chronic Conditions Patient?s care impacted by: Diabetes and Hypertension CHF, elevated creatinine, CRF Discharge Plan Discharge Clinical Impression: Congestive heart failure, Supplemental oxygen dependent, Community acquired pneumonia, Elevated serum creatinine, Bilateral lower extremity edema, Atrial flutter Patient Disposition: Admitted As Inpatient
[2023-08-01 13:21] VITALS: BP 121/77; PULSE 133; RESP 20; TEMP 37.6; O2SAT 98; BMI 43.9
[2023-08-01 14:33] LABS: Hematocrit 25.1 % (37.0-47.0); Hemoglobin 7.9 g/dl (12.0-16.0); Mean Corpuscular HGB Conc 31.5 g/dl (31.0-35.0); Mean Corpuscular Hemoglobin 28.7 pg (27.0-33.0); Mean Corpuscular Volume 91.3 fL (80.0-98.0); Mean Platelet Volume 9.9 fL (9.4-12.3); NRBC Pct Auto 0.1 /100WBC (0.0-0.2); Platelet Count 460 X10*3/uL (160-400); Red Blood Count 2.75 X10*6/uL (4.20-5.50); Red Cell Distribution Width 15.3 % (11.0-16.0)
[2023-08-01 14:41] LABS: Alanine Aminotransferase 65 U/L (0-31); Albumin Level 2.8 g/dL (3.5-5.0); Alkaline Phosphatase 169 U/L (39-117); Anion Gap 17 (12-20); Aspartate Amino Transferase 56 U/L (5-31); Bilirubin Total 0.4 mg/dL (0.0-1.0); Blood Urea Nitrogen 54 mg/dL (9-16); Calcium 9.2 mg/dL (8.4-10.2); Carbon Dioxide 19 mmol/L (22-29); Chloride 110 mmol/L (96-108); Creatinine Clr Calc Pharmacy 19.9; Estimated Glomerular Filt Rate 15; Glucose Random 68 mg/dL (60-115); Lipase 14 U/L (8-78); Potassium 3.7 mmol/L (3.3-5.1); Sodium 142 mmol/L (135-145); Total Protein 6.7 g/dL (6.5-8.0)
[2023-08-01 14:47] LABS: B Type Natriuretic Peptide 1409 pg/mL (<100)
[2023-08-01 14:48] LABS: Troponin-I High Sensitivity 26.5 ng/L (<3.5-17.0)
[2023-08-01 14:55] LABS: Band Neutrophils Percent 2 % (3-5); Lymphocytes Absolute Manual 0.9 X10*3/uL (1.2-4.9); Lymphocytes Percent Manual 4 % (20-40); Monocytes Absolute Manual 0.4 X10*3/uL (0.1-1.2); Monocytes Percent Manual 2 % (2-11); Neutrophils Absolute Manual 20.7 X10*3/uL (2.0-8.3); Neutrophils Percent Manual 92 % (45-73); Nucleated Red Blood Cells 1 /100WBC (0-0)
[2023-08-01 14:56] LABS: RBC Morphology NOTED
[2023-08-01 14:57] LABS: Burr Cells 1+ (0-2) /OIF; Ovalocytes 1+ (5-14) /OIF; Platelet Estimate INCREASED (NORMAL); Platelet Morphology Comment NORMAL; Polychromasia 1+ (0-2) /OIF
[2023-08-01 14:58] LABS: Influenza A PCR NEGATIVE (Negative); Influenza B PCR NEGATIVE (Negative); Resp Syncy Virus RNA Qual PCR NEGATIVE (Negative); SARS COV2 PCR INHOUSE NEGATIVE (Negative)
--- NOTE | 2023-08-01 16:15 | PHA.MEDREC ---
Pharmacy Consult ? Medication Reconciliation Pharmacy has completed the medication reconciliation. Patient had list of medicaitons on her phone. Reports taking carvedilol and hydralazine in the morning and afternoon. Deandra Avalos, RodD
--- NOTE | 2023-08-01 16:33 | PM.IMHP ---
History of Present Illness Date of Service: 08/01/23 <RADHA Walker - Last Filed: 08/01/23 18:58> Attending physician on admission: Ervin Pryor <RADHA Walker - Last Filed: 08/01/23 18:58> Chief Complaint: SOB <RADHA Walker - Last Filed: 08/01/23 18:58> Pt is a 68-year-old female with a PMH significant for?HFpEF, CKD 3, insulin-dependent diabetes type 2, HLD, HTN, AMY on CPAP at bedtime, and chronically on 2L O2 at home who presents to the ED with?with increased SOB and decreased O2 saturation for the past few days. Patient states symptoms began approximately 1 week ago with URI like symptoms: Patient with nasal congestion, sore throat, rhinorrhea, and earache. Symptoms resolved but then patient began developing increased shortness of breath, pulmonary congestion, and cough occasionally productive of yellowish sputum. Patient denies palpitations but daughter noted patient's pulse has been in the 100s-130s the past 2-3 days, while her O2 sat has been as low as 83% on her normal 2L O2, which pt then increased to 4L. She denies a hx of Afib. Denies any chest pain/pressure. No nausea, vomiting, abdominal pain. Pt denies any increase in lower leg edema. In the ED patient with temperature of 99.7 degrees, tachycardia up to 133, and satting at 98% O2 on 4 L. Labs were significant for leukocytosis of 22.0, H&H of 7.9/25.1, BUN 54, creatinine 3.09, AST 56, ALT 65, alk-phos 169, initial troponin 26.5, BNP 1409, Patient tested negative for influenza type a and B, our SV, and COVID. CXR showed new multifocal airspace opacities concerning for atypical pneumonia. Echocardiogram on 07/15/2023 showed normal LVEF of 60-65% with mildly dilated left atrium, [id number] aortic stenosis, and mildly dilated ascending aorta of 3.7 cm. EKG demonstrated atrial flutter with nonspecific ST and T-wave abnormalities. Pt was treated with Lasix 40 mg IV, cefepime, vancomycin, and half liter of IVF. Pt will be admitted to the hospital on telemetry for treatment further evaluation of acute hypoxic respiratory failure in the setting of new onset a flutter with RVR, HFpEF exacerbation, and multifocal pneumonia. <RADHA Walker - Last Filed: 08/01/23 18:58> Review of Systems Review of Systems: URI symptoms (sore throat, rhinorrhea, earache) one week ago, now resolved Increasing shortness of breath Cough occasionally productive of yellowish sputum Increasing supplemental oxygen demand Tachycardia Denies chest pain/pressure, palpitations No nausea, vomiting, abdominal pain <RADHA Walker - Last Filed: 08/01/23 18:58> [facility] Medical History: Medical History AMY on CPAP Chronic renal failure Secondary aldosteronism Acute renal failure Nocturnal hypoxemia Morbid obesity Diabetes type 2, controlled HTN (hypertension) Morbid obesity due to excess calories AMY (obstructive sleep apnea) Pneumonia Obesity Elevated creatine kinase Anemia Congestive heart failure Bilateral lower extremity edema High cholesterol Diabetes type 2, uncontrolled Hypertension, essential <RADHA Walker - Last Filed: 08/01/23 18:58> Family History: Family History Father Stroke Mother Stroke Hypertension Diabetes Maternal Grandmother Diabetes Hypertension Stroke Sister Diabetes Breast cancer Son Bipolar 1 disorder Overweight Other Mental health problem Substance abuse <RADHA Walker - Last Filed: 08/01/23 18:58> Surgical History: Surgical History History of surgery History of D&C <RADHA Walker - Last Filed: 08/01/23 18:58> Social History: Social History Household Members: Family Housing: House Do you presently have visiting nurse or other home services: No Unable to assess alcohol history related to: Unable to respond Alcohol intake: never Patient Tobacco Use Status: Never used Tobacco Smoked in Last 30 Days: No e-Cigarette/Vaping Use: Never Used Advance Directives: Yes Advance Directives on File: Yes Advance Directives Date on File: 06/09/21 Nutrition Risks: No Nutritional Risk service: No Current occupational status: employed Cognitive needs: No Hearing needs: No Vision needs: Yes <RADHA Walker - Last Filed: 08/01/23 18:58> Meds Allergies/Adverse reactions: Allergies Allergy/AdvReac Type Severity Reaction Status Date / Time penicillin V Allergy Severe joint Verified 08/01/23 13:25 swelling and rash amlodipine [From [facility]] AdvReac Intermediate edema Verified 08/01/23 13:25 <RADHA Walker - Last Filed: 08/01/23 18:58> Active Medications: Current Medications Sodium Chloride (Ns) 500 mls @ 50 mls/hr IV .Q10H LORRIE Stop: 08/02/23 01:59 Vancomycin HCl 1,000 mg/Vancomycin HCl 750 mg/ Sodium Chloride 535 mls @ 267.5 mls/hr IV ONCE ONE Stop: 08/01/23 17:58 <RADHA Walker - Last Filed: 08/01/23 18:58> Home medications: Home Medications Medication Instructions Recorded Confirmed Last Taken Type ascorbic acid (vitamin C) 500 mg 500 mg PO DAILY 09/22/20 08/01/23 08/01/23 History tablet fexofenadine 180 mg tablet 180 mg PO DAILY 09/22/20 08/01/23 08/01/23 History multivitamin 1 tab PO DAILY 09/12/22 08/01/23 08/01/23 History cholecalciferol (vitamin D3) 1,250 1,250 mcg PO PISANO@0900 11/27/22 08/01/23 07/28/23 History mcg (50,000 unit) capsule ferrous sulfate 325 mg (65 mg 325 mg PO DAILY 11/27/22 08/01/23 08/01/23 History iron) tablet atorvastatin 80 mg tablet 80 mg PO BEDTIME 08/01/23 08/01/23 07/31/23 History carvedilol 25 mg tablet 25 mg PO BID@0900,1500 08/01/23 08/01/23 08/01/23 History fluoxetine 20 mg capsule 40 mg PO DAILY 08/01/23 08/01/23 08/01/23 History hydralazine 25 mg tablet 25 mg PO BID@0900,1500 08/01/23 08/01/23 08/01/23 History insulin lispro 100 unit/mL See Rx Instructions subcut QID 08/01/23 08/01/23 08/01/23 History subcutaneous pen sodium polystyrene sulfonate 15 g PO 3XW 08/01/23 08/01/23 07/31/23 History <RADHA Walker - Last Filed: 08/01/23 18:58> Physical Exam Vital Signs and Narrative: Vital Signs: Last Vital Signs Temp 99.7 F 08/01/23 13:21 Pulse 133 H 08/01/23 13:21 Resp 20 08/01/23 13:21 BP 121/77 08/01/23 13:21 Pulse Ox 98 08/01/23 13:21 O2 Del Method Nasal Cannula 08/01/23 13:21 Oxygen Flow Rate 4 08/01/23 13:21 BMI result Body Mass Index 43.9 <RADHA Walker - Last Filed: 08/01/23 18:58> Constitutional: Alert, in no acute distress. Mental Status: Oriented to person, place and time. Eyes: Pupils are equal, round, and reactive to light. Ear, Nose, and Throat: Oropharynx clear, mucous membranes moist. Ears and nose without deformities. Trachea midline. Respiratory: Clear to auscultation bilaterally, though diminished breath sounds. No wheezing, rales, or rhonchi. Cardiovascular: Irregularly irregular rythm. 2/6 systolic murmur. Gastrointestinal: Abdomen soft, non-tender, non-distended, obese. Normal bowel sounds. Neurologic: Cranial nerves II-XII are grossly intact bilaterally. No focal neurological deficits. Moves all extremities spontaneously. Skin: No rashes or lesions noted. Musculoskeletal: No cyanosis or clubbing. Extremities: Non-pitting lower leg edema. Psychiatric: Normal mood and affect. <RADHA Walker - Last Filed: 08/01/23 18:58> Results Labs CBC and Chem 7: 08/02/23 05:39 08/02/23 05:39 <RADHA Walker - Last Filed: 08/01/23 18:58> Labs: Laboratory Results - last 24 hr 08/01/23 14:15 MCV 91.3 MCH 28.7 MCHC 31.5 RDW 15.3 Plt Count 460 H MPV 9.9 Immature Gran % (Auto) Cancelled Neut % (Auto) Cancelled Lymph % (Auto) Cancelled [place] % (Auto) Cancelled Eos % (Auto) Cancelled Baso % (Auto) Cancelled Lymph # (Auto) Cancelled [place] # (Auto) Cancelled Eos # (Auto) Cancelled Baso # (Auto) Cancelled Abs Immat Gran (auto) Cancelled Absolute Neuts (auto) Cancelled Absolute Nucleated RBC 0.020 H Nucleated RBC % (auto) 0.1 Neutrophils % (Manual) 92 H Band Neutrophils % 2 L Lymphocytes % (Manual) 4 L Monocytes % (Manual) 2 Abs Neuts (Manual) 20.7 H Lymphocytes # (Manual) 0.9 L Monocytes # (Manual) 0.4 Nucleated RBCs 1 H Platelet Estimate INCREASED Plt Morphology Comment NORMAL RBC Morphology NOTED Polychromasia 1+ (0-2) Ovalocytes 1+ (5-14) [place] Cells 1+ (0-2) Anion Gap 17 Estim Creat Clear Calc 19.9 Estimated GFR 15 Random Glucose 68 Calcium 9.2 Total Bilirubin 0.4 AST 56 H ALT 65 H Alkaline Phosphatase 169 H B-Natriuretic Peptide 1409 H Total Protein 6.7 Albumin 2.8 L Lipase 14 Influenza Type A (PCR) NEGATIVE Influenza Type B (PCR) NEGATIVE RSV RNA Qual (PCR) NEGATIVE SARS-CoV-2 RNA (RT-PCR) NEGATIVE <RADHA Walker - Last Filed: 08/01/23 18:58> Imaging Radiologist's Impressions: Impressions Chest X-Ray 08/01/23 13:35 IMPRESSION: New multifocal airspace opacities concerning for an atypical pneumonia. Recommend a follow-up examination after treatment to ensure adequate resolution. <RADHA Walker - Last Filed: 08/01/23 18:58> Assessment and Plan (1) Atrial flutter: Status: Acute <RADHA Walker - Last Filed: 08/01/23 18:58> (2) Community acquired pneumonia: Status: Acute <RADHA Walker - Last Filed: 08/01/23 18:58> Pt is a 68-year-old female with a PMH significant for?HFpEF, CKD 3, insulin-dependent diabetes type 2, HLD, HTN, AMY on CPAP at bedtime, and chronically on 2L O2 at home who presents to the ED with?with increased SOB and decreased O2 saturation for the past few days. Pt will be admitted to the hospital on telemetry for treatment further evaluation of acute hypoxic respiratory failure in the setting of new onset a flutter with RVR, HFpEF exacerbation, and multifocal pneumonia. New onset AFlutter with RVR EKG showing a flutter with RVR of 125 Heart rate at home noted to be as high as 130s during the past 2-3 days, denies hx of arrhythmias Pt given home dose of carvedilol, BP now in the 60s Started on Xarelto Last echo 2 1/2 weeks prior Cardiology consult Monitor on telemetry Acute hypoxic respiratory failure in setting of multifocal pneumonia CXR with new multifocal airspace opacities concerning for atypical pneumonia Patient with increased SOB, productive cough x3-4 days, O2 sat is low as 83% on chronic 2L home O2 Pt meets sepsis criteria: Pneumonia, WBC, tachypnea; tachycardia d/t aflutter with RVR, lactic acid WNL at 0.7 Patient given cefepime and vanco in the ED, IVF Will continue IV ABX: Ceftriaxone, azithromycin, started 08/02/2023 Will check procalcitonin, MRSA swab, Legionella and strep pneumoniae urine Titrate supplemental O2 >92%, wean as tolerated Acute HFpEF exacerbation Likely multifactorial: pneumonia, Aflutter with RVR Furosemide 40 mg IV b.i.d. Follow lytes, MG, I/O Daily weights, low-salt diet Cardiology consult Admit to telemetry Anemia of chronic disease Likely secondary to CKD 3 H&H 7.9/25.1, down from 10.9/35.1 on 12/06/2022 Pt denies active bleeding, no hematochezia, hematemesis, melena Will get type and screen, occult blood Pt started on Xarelto in ED, will hold on additional dose pending test for occult blood Follow CBC Insulin-dependent diabetes type 2 Hold home meds SSI, Lantus Diabetic diet AMY CPAP at night Full Code Attending:?Dr. Pryor DVT Prophylaxis: Started on Xarelto Pt will require a hospitalization of at least two nights for treatment of?acute hypoxic respiratory failure in the setting of new onset Aflutter with RVR, multifocal pneumonia, and CHF exacerbation. Patient be treated with IV antibiotics, IV diuretics, close monitoring, and specialist consultation. <RADHA Walker - Last Filed: 08/01/23 18:58> Pt is a 68-year-old female with a PMH significant for?HFpEF, CKD 3, insulin-dependent diabetes type 2, HLD, HTN, AMY on CPAP at bedtime, and chronically on 2L O2 at home who presents to the ED with?with increased SOB and decreased O2 saturation for the past few days. Pt will be admitted to the hospital on telemetry for treatment further evaluation of acute hypoxic respiratory failure in the setting of new onset a flutter with RVR, HFpEF exacerbation, and multifocal pneumonia. New onset AFlutter with RVR EKG showing a flutter with RVR of 125 Heart rate at home noted to be as high as 130s during the past 2-3 days, denies hx of arrhythmias Pt given home dose of carvedilol, BP now in the 60s Started on Xarelto Last echo 2 1/2 weeks prior Cardiology consult Monitor on telemetry Acute hypoxic respiratory failure in setting of multifocal pneumonia CXR with new multifocal airspace opacities concerning for atypical pneumonia Patient with increased SOB, productive cough x3-4 days, O2 sat is low as 83% on chronic 2L home O2 Pt meets sepsis criteria: Pneumonia, WBC, tachypnea; tachycardia d/t aflutter with RVR, lactic acid WNL at 0.7 Patient given cefepime and vanco in the ED, IVF Will continue IV ABX: Ceftriaxone, azithromycin, started 08/02/2023 Will check procalcitonin, MRSA swab, Legionella and strep pneumoniae urine Titrate supplemental O2 >92%, wean as tolerated Acute HFpEF exacerbation Likely multifactorial: pneumonia, Aflutter with RVR Furosemide 40 mg IV b.i.d. Follow lytes, MG, I/O Daily weights, low-salt diet Cardiology consult Admit to telemetry Anemia of chronic disease Likely secondary to CKD 3 H&H 7.9/25.1, down from 10.9/35.1 on 12/06/2022 Pt denies active bleeding, no hematochezia, hematemesis, melena Will get type and screen, occult blood Pt started on Xarelto in ED, will hold on additional dose pending test for occult blood Follow CBC Insulin-dependent diabetes type 2 Hold home meds SSI, Lantus Diabetic diet AMY CPAP at night Full Code Attending:?Dr. Pryor DVT Prophylaxis: Started on Xarelto Pt will require a hospitalization of at least two nights for treatment of?acute hypoxic respiratory failure in the setting of new onset Aflutter with RVR, multifocal pneumonia, and CHF exacerbation. Patient be treated with IV antibiotics, IV diuretics, close monitoring, and specialist consultation. Addendum to history and physical by the advanced practice provider, RADHA Presley I interviewed and examined the patient. I discussed their presentation and management with the MATTY. I reviewed the history and physical and agree with the documentation, with the following additions and corrections: 68yo F with HFpEF, CKD3, DM2, HTN, AMY on CPAP + 2L O2 chronically presenting with worsening dyspnea after developing a URI 1 wk ago now with productive cough found to be hypoxic and in rapid atrial flutter, rate of 133, septic with tachypnea and leukocytosis CXR with multifocal pneumonia ventricular rate now in 80s-90s plan admit to telemetry, give ceftriaxone + azithromycin for pneumonia, check BCx/PCT/UAgs. diurese with furosemide. carvedilol for rate control, start rivaroxaban for AC with caution given anemia- check FOBT and trend H+H <Ervin Pryor MD - Last Filed: 08/02/23 13:32> Time Spent With Patient Time: Total time managing care of this patient today ____ minutes. <RADHA Walker - Last Filed: 08/01/23 18:58> Quality Stroke Does the patient have a stroke diagnosis?: No <RADHA Walker - Last Filed: 08/01/23 18:58> VTE Prior VTE?: No <RADHA Walker - Last Filed: 08/01/23 18:58> VTE Risk Level:: Medical - moderate - high <RADHA Walker Last Filed: 08/01/23 18:58> VTE Device Contraindication: Treatment Not Indicated <RADHA Walker - Last Filed: 08/01/23 18:58> VTE Drug Contraindication: N/A - Med Ordered <RADHA Walker - Last Filed: 08/01/23 18:58>
--- NOTE | 2023-08-01 16:49 | ECG_ITS ---
Test Reason : TACHY Blood Pressure : / mmHG Vent. Rate : 094 BPM Atrial Rate : 271 BPM P-R Int : 000 ms QRS Dur : 114 ms QT Int : 382 ms P-R-T Axes : 050 019 095 degrees QTc Int : 477 ms Atrial flutter with variable A-V block Nonspecific ST and T wave abnormality Prolonged QT Abnormal ECG When compared with ECG of 01-AUG-2023 14:02, Heart rate has decreased Referred By: Frank Elise Electronically Signed By:AMBER BUSH MD
[2023-08-01 16:51] LABS: Lactic Acid 0.7 mmol/L (0.5-2.0)
[2023-08-01 16:58] VITALS: BP 152/77; PULSE 83; RESP 18; O2SAT 95
[2023-08-01] MEDS: Furosemide 40 MG/4 ML VIAL IVPUSH (17:18)
[2023-08-01] MEDS: cefEPime HCl 2 GM in 0.9 % Sodium Chloride 50 ML IV (17:18)
[2023-08-01] MEDS: vancomycin HCL 1,000 MG, vancomycin HCL 750 MG in 0.9 % Sodium Chloride 500 ML 267.5 MG IV (17:43)
[2023-08-01] MEDS: 0.9 % Sodium Chloride 500 ML 50 ML IV (17:46)
[2023-08-01] MEDS: Rivaroxaban 20 MG TABLET PO (18:07)
[2023-08-01] MEDS: hydrALAZINE HCl 25 MG TABLET PO (18:07)
[2023-08-01] MEDS: carvediloL 25 MG TABLET PO (18:10)
[2023-08-01 18:18] VITALS: BP 146/62; PULSE 59; RESP 16; TEMP 36.8; O2SAT 100
--- NOTE | 2023-08-01 18:32 | MHC.EDTECH ---
patient vitals taken ,type and screen drawn and mrsa swab collected and sent to lab .
[2023-08-01 18:37] LABS: Magnesium 2.2 mg/dL (1.6-2.6)
[2023-08-01 19:24] LABS: Procalcitonin 0.41 ng/mL
--- NOTE | 2023-08-01 19:25 | PC.NURSE ---
this rn assumed care. pt a&ox3. respirations even and unlabored. pt has auditory bilateral expiratory wheezing noted. pt on 3L nasal cannula sating between 98-99%. pt abdomen soft non tender to touch. pt denies pain, SOB, nausea and vomiting at this time. pt normal sinus on tele 60-62. pt requesting food, sandwich given at this time.
[2023-08-01 21:45] VITALS: BP 132/51; PULSE 61; RESP 12; TEMP 37; O2SAT 97
[2023-08-01 21:58] LABS: Glucose, Whole Blood 101 mg/dL (60-115)
[2023-08-01] MEDS: Atorvastatin Calcium 80 MG TABLET PO (22:00)
[2023-08-01] MEDS: Insulin Glargine,Hum.rec.anlog 100 UNIT/ML 10 ML VIAL 49 UNIT SUBCUT (22:00)
--- NOTE | 2023-08-01 22:04 | PC.NURSE ---
pt medicated epr dec. pt states she is feeling better, denies pain at this time. pt resting quietly, lights dimmed.
[2023-08-02] VITALS (8 sets, daily range): BP systolic 127–187; BP diastolic 54–68; PULSE 58–65; RESP 13–24; TEMP 36.3–36.8; O2SAT 95–100
--- NOTE | 2023-08-02 05:21 | PC.NURSE ---
pt resting quietly at this time. respirations even and unlabored. normal sinus on tele 50-54.
[2023-08-02 05:47] LABS: Hemoglobin 7.5 g/dl (12.0-16.0); Mean Corpuscular HGB Conc 31.3 g/dl (31.0-35.0); Mean Corpuscular Hemoglobin 29.1 pg (27.0-33.0); Mean Platelet Volume 9.6 fL (9.4-12.3); NRBC Pct Auto 0.1 /100WBC (0.0-0.2); Platelet Count 413 X10*3/uL (160-400); Red Blood Count 2.58 X10*6/uL (4.20-5.50); Red Cell Distribution Width 15.2 % (11.0-16.0); White Blood Count 26.8 X10*3/uL (4.8-10.8)
[2023-08-02 06:09] LABS: Sodium 143 mmol/L (135-145)
[2023-08-02 06:10] LABS: Anion Gap 17 (12-20); Blood Urea Nitrogen 55 mg/dL (9-16); Calcium 8.5 mg/dL (8.4-10.2); Carbon Dioxide 18 mmol/L (22-29); Chloride 112 mmol/L (96-108); Creatinine Clr Calc Pharmacy 19.8; Estimated Glomerular Filt Rate 15; Magnesium 2.3 mg/dL (1.6-2.6)
[2023-08-02 06:11] LABS: Glucose Random 52 mg/dL (60-115)
[2023-08-02] MEDS: Dextrose 50 % 25 GM/50 ML SYRINGE IVPUSH (06:24)
--- NOTE | 2023-08-02 06:27 | PC.NURSE ---
critical lab received, blood glucose of 52. notified to hospitalist, order to give IV dextrose PRN at this time. pt denies nausea, dizziness and shaking.
--- NOTE | 2023-08-02 06:29 | PC.NURSE ---
titrated pt down to 2L nasal cannula, pt sating at 98%. reports no shortness of breath at this time.
--- NOTE | 2023-08-02 06:36 | PC.NURSE ---
pt repositioned in bed, IV wrapped up with gauze for pt comfort.
[2023-08-02 06:48] LABS: Glucose, Whole Blood 139 mg/dL (60-115)
[2023-08-02 07:18] LABS: Glucose, Whole Blood 121 mg/dL (60-115)
[2023-08-02 07:18] LABS: Glucose, Whole Blood 121 mg/dL (60-115)
[2023-08-02] MEDS: Aspirin 81 MG TAB.CHEW PO (07:58)
[2023-08-02] MEDS: Ascorbic Acid 500 MG TABLET PO (07:58)
[2023-08-02] MEDS: hydrALAZINE HCl 25 MG TABLET PO ×2 (07:58→15:34)
[2023-08-02] MEDS: Furosemide 40 MG TABLET PO (07:58)
[2023-08-02] MEDS: Multivitamin TABLET 1 TAB PO (07:59)
[2023-08-02] MEDS: lisinopriL 10 MG TABLET PO (07:59)
[2023-08-02] MEDS: Ferrous Sulfate 324 MG TABLET.DR PO (07:59)
[2023-08-02] MEDS: Loratadine 10 MG TABLET PO (07:59)
[2023-08-02] MEDS: cefTRIAXone sodium 1 GM in 0.9 % Sodium Chloride 50 ML IV (08:00)
[2023-08-02] MEDS: FLUoxetine HCl 20 MG CAPSULE 40 MG PO (08:00)
[2023-08-02] MEDS: 0.9 % Sodium Chloride Flush 3 ML SYRINGE IVFLUSH ×2 (08:01→22:36)
--- NOTE | 2023-08-02 08:15 | PC.NURSE ---
patient resting in bed, ate partial breakfast. respirations equal and unlabored. patient denies pain or nausea. pt medicated per dec, held carvedilol due to heart rate 55 bpm.
[2023-08-02] MEDS: Furosemide 40 MG/4 ML VIAL IVPUSH ×2 (08:34→18:43)
[2023-08-02] MEDS: Azithromycin 500 MG in 0.9 % Sodium Chloride 250 ML 125 MG IV (08:34)
--- NOTE | 2023-08-02 09:37 | PC.NURSE ---
patient got up to commode with ease, patient voided.
[2023-08-02 10:54] LABS: MRSA Nasal PCR NEGATIVE (Negative); SA Nasal PCR POSITIVE (Negative)
[2023-08-02 11:42] LABS: Glucose, Whole Blood 127 mg/dL (60-115)
--- NOTE | 2023-08-02 11:51 | P.CONCA_ITS ---
History of Present Illness History of Present Illness Date of Service: 08/02/23 Requesting physician: Ervin Pryor Chief complaint: HFpED exacerbation, new onset AFlutter w/ rvr Narrative: [age] year female with history of mild aortic valve stenosis, morbid obesity, diastolic heart failure and hypertension who is presenting with pneumonia. She has right lung pneumonia currently and was short of breath and coughing. Breathing worsened today. Denying any chest discomfort. Also developed atrial flutter in the ER and is back in sinus rhythm. Noticed to be anemic. Denying any active bleeding recently. Mild edema reported by her. [facility] Past Medical History Medical History AMY on CPAP Chronic renal failure Secondary aldosteronism Acute renal failure Nocturnal hypoxemia Morbid obesity Diabetes type 2, controlled HTN (hypertension) Morbid obesity due to excess calories AMY (obstructive sleep apnea) Pneumonia Obesity Elevated creatine kinase Anemia Congestive heart failure Bilateral lower extremity edema High cholesterol Diabetes type 2, uncontrolled Hypertension, essential Family History Family History Father Stroke Mother Stroke Hypertension Diabetes Maternal Grandmother Diabetes Hypertension Stroke Sister Diabetes Breast cancer Son Bipolar 1 disorder Overweight Other Mental health problem Substance abuse Surgical History Surgical History History of surgery History of D&C Social History Social History Household Members: Family Housing: House Do you presently have visiting nurse or other home services: No Unable to assess alcohol history related to: Unable to respond Alcohol intake: never Patient Tobacco Use Status: Never used Tobacco Smoked in Last 30 Days: No e-Cigarette/Vaping Use: Never Used Advance Directives: Yes Advance Directives on File: Yes Advance Directives Date on File: 06/09/21 Nutrition Risks: No Nutritional Risk service: No Current occupational status: employed Cognitive needs: No Hearing needs: No Vision needs: Yes Meds Allergies Allergy/AdvReac Type Severity Reaction Status Date / Time penicillin V Allergy Severe joint Verified 08/01/23 13:25 swelling and rash amlodipine [From Norvasc] AdvReac Intermediate edema Verified 08/01/23 13:25 Active Medications: Current Medications Acetaminophen (Acetaminophen 325 Mg Tablet) 650 mg PO Q6H PRN PRN Reason: Pain, Mild (Pain Scale 1-3) Ascorbic Acid (Ascorbic Acid 500 Mg Tablet) 500 mg PO DAILY [facility] Last Admin: 08/02/23 07:58 Dose: 500 mg Aspirin (Aspirin 81 Mg Tab.Chew) 81 mg PO DAILY [facility] Last Admin: 08/02/23 07:58 Dose: 81 mg Atorvastatin Calcium (Atorvastatin Calcium 80 Mg Tablet) 80 mg PO BEDTIME [facility] Last Admin: 08/01/23 22:00 Dose: 80 mg Carvedilol (Carvedilol 25 Mg Tablet) 25 mg PO BID@0900,1500 [facility]; Protocol Last Admin: 08/02/23 08:01 Dose: Not Given Dextrose (Dextrose 50 % 25 Gm/50 Ml Syringe) 25 gm IVPUSH Q15M PRN; Protocol PRN Reason: per Hypoglycemia Standing Ord. Last Admin: 08/02/23 06:24 Dose: 25 gm Docusate Sodium (Docusate Sodium 100 Mg Capsule) 100 mg PO DAILY PRN PRN Reason: Constipation Ferrous Sulfate (Ferrous Sulfate 324 Mg Tablet.Dr) 324 mg PO DAILY [facility] Last Admin: 08/02/23 07:59 Dose: 324 mg Fluoxetine HCl (Fluoxetine Hcl 20 Mg Capsule) 40 mg PO DAILY [facility] Last Admin: 08/02/23 08:00 Dose: 40 mg Furosemide (Furosemide 40 Mg Tablet) 40 mg PO BID@0900,1800 [facility]; Protocol Last Admin: 08/02/23 07:58 Dose: 40 mg Furosemide (Furosemide 40 Mg/4 Ml Vial) 40 mg IVPUSH BID@0900,1800 [facility]; Protocol Last Admin: 08/02/23 08:34 Dose: 40 mg Glucose (Glucose Gel 15 Gm Gel..Gram.) 15 gm PO Q15M PRN; Protocol PRN Reason: per Hypoglycemia Standing Ord. Hydralazine HCl (Hydralazine Hcl 25 Mg Tablet) 25 mg PO BID@0900,1500 [facility]; Protocol Last Admin: 08/02/23 07:58 Dose: 25 mg Ceftriaxone Sodium 1 gm/ (Sodium Chloride) 50 mls @ 100 mls/hr IV Q24H [facility] Last Infusion: 08/02/23 08:30 Dose: Infused Azithromycin 500 mg/ Sodium (Chloride) 250 mls @ 125 mls/hr IV Q24H [facility] Last Admin: 08/02/23 08:34 Dose: 125 mls/hr Insulin Glargine (Insulin Glargine,Hum.Rec.Anlog 100 Unit/Ml 10 Ml Vial) 25 unit SUBCUT BEDTIME [facility] Insulin Human Lispro (Insulin Lispro 100 Unit/Ml 3 Ml Vial) 0 unit SUBCUT QIDACHS [facility]; Protocol Last Admin: 08/02/23 11:42 Dose: Not Given Lisinopril (Lisinopril 10 Mg Tablet) 10 mg PO DAILY [facility]; Protocol Last Admin: 08/02/23 07:59 Dose: 10 mg Loratadine (Loratadine 10 Mg Tablet) 10 mg PO DAILY [facility] Last Admin: 08/02/23 07:59 Dose: 10 mg Multivitamins/Vitamin C (Multivitamin Tablet) 1 tab PO DAILY [facility] Last Admin: 08/02/23 07:59 Dose: 1 tab Ondansetron HCl (Ondansetron Hcl 4 Mg/2 Ml Vial) 4 mg IVPUSH Q8H PRN PRN Reason: Nausea and Vomiting Rivaroxaban (Rivaroxaban 20 Mg Tablet) 20 mg PO DAILY@1700 [facility] Sodium Chloride (0.9 % Sodium Chloride Flush 3 Ml Syringe) [facility] Last Admin: 08/02/23 08:01 Dose: 3 ml Home Medications Medication Instructions Recorded Confirmed Last Taken Type ascorbic acid (vitamin C) 500 mg 500 mg PO DAILY 09/22/20 08/01/23 08/01/23 History tablet fexofenadine 180 mg tablet 180 mg PO DAILY 09/22/20 08/01/23 08/01/23 History multivitamin 1 tab PO DAILY 09/12/22 08/01/23 08/01/23 History cholecalciferol (vitamin D3) 1,250 1,250 mcg PO PISANO@0900 11/27/22 08/01/23 07/28/23 History mcg (50,000 unit) capsule ferrous sulfate 325 mg (65 mg 325 mg PO DAILY 11/27/22 08/01/23 08/01/23 History iron) tablet atorvastatin 80 mg tablet 80 mg PO BEDTIME 08/01/23 08/01/23 07/31/23 History carvedilol 25 mg tablet 25 mg PO BID@0900,1500 08/01/23 08/01/23 08/01/23 History fluoxetine 20 mg capsule 40 mg PO DAILY 1008/01/23 08/01/23 History hydralazine 25 mg tablet 25 mg PO BID@0900,1500 08/01/23 08/01/23 08/01/23 History insulin lispro 100 unit/mL See Rx Instructions subcut QID 08/01/23 08/01/23 08/01/23 History subcutaneous pen sodium polystyrene sulfonate 15 g PO 3XW 08/01/23 08/01/23 07/31/23 History Physical Exam 2 Vital Signs: Vital Signs: Last Vital Signs Temp 97.9 F 08/02/23 06:22 Pulse 59 08/02/23 10:57 Resp 13 08/02/23 10:57 BP 142/54 H 08/02/23 10:57 Pulse Ox 97 08/02/23 10:57 O2 Del Method Nasal Cannula 08/02/23 10:57 O2 Flow Rate 2 08/02/23 10:57 Oxygen Flow Rate 4 08/01/23 13:21 BMI result Body Mass Index 43.9 GENERAL APPEARANCE: in no acute distress, morbid obesity. On supplemental oxygen. NECK: no carotid bruit, + jugular venous distention. SKIN: no suspicious lesions, warm and dry. HEART: no murmurs, regular rate and rhythm. LUNGS: clear to auscultation bilaterally. ABDOMEN: soft, nontender. EXTREMITIES: + edema. PERIPHERAL PULSES: equal. NEUROLOGIC: No gross deficits, AAO X 3 Objective Labs and Meds 08/02/23 05:39 08/02/23 05:39 Lab results: Laboratory Results - last 24 hr 08/01/23 08/01/23 08/01/23 14:15 16:31 18:29 WBC 22.0 H RBC 2.75 L D Hgb 7.9 L D Hct 25.1 L D MCV 91.3 MCH 28.7 MCHC 31.5 RDW 15.3 Plt Count 460 H MPV 9.9 Immature Gran % (Auto) Cancelled Neut % (Auto) Cancelled Lymph % (Auto) Cancelled [place] % (Auto) Cancelled Eos % (Auto) Cancelled Baso % (Auto) Cancelled Lymph # (Auto) Cancelled [place] # (Auto) Cancelled Eos # (Auto) Cancelled Baso # (Auto) Cancelled Abs Immat Gran (auto) Cancelled Absolute Neuts (auto) Cancelled Absolute Nucleated RBC 0.020 H Nucleated RBC % (auto) 0.1 Neutrophils % (Manual) 92 H Band Neutrophils % 2 L Lymphocytes % (Manual) 4 L Monocytes % (Manual) 2 Abs Neuts (Manual) 20.7 H Lymphocytes # (Manual) 0.9 L Monocytes # (Manual) 0.4 Nucleated RBCs 1 H Platelet Estimate INCREASED Plt Morphology Comment NORMAL RBC Morphology NOTED Polychromasia 1+ (0-2) Ovalocytes 1+ (5-14) [place] Cells 1+ (0-2) Smear Path Review SEE NOTE Sodium 142 Potassium 3.7 Chloride 110 H Carbon Dioxide 19 L Anion Gap 17 BUN 54 H Creatinine 3.09 H Estim Creat Clear Calc 19.9 Estimated GFR 15 POC Glucose Random Glucose 68 Lactic Acid 0.7 Calcium 9.2 Magnesium 2.2 Total Bilirubin 0.4 AST 56 H ALT 65 H Alkaline Phosphatase 169 H Troponin I High Sens 26.5 H B-Natriuretic Peptide 1409 H Total Protein 6.7 Albumin 2.8 L Lipase 14 Procalcitonin 0.41 Nasal Screen MRSA (PCR) Nasal S. aureus Screen Nasal MRSA/S.aureus Interp Influenza Type A (PCR) NEGATIVE Influenza Type B (PCR) NEGATIVE RSV RNA Qual (PCR) NEGATIVE SARS-CoV-2 RNA (RT-PCR) NEGATIVE Blood Type O Positive Antibody Screen NEGATIVE 08/01/23 08/01/23 08/02/23 18:31 21:36 05:39 WBC 26.8 H RBC 2.58 L Hgb 7.5 L Hct 24.0 L MCV 93.0 MCH 29.1 MCHC 31.3 RDW 15.2 Plt Count 413 H MPV 9.6 Immature Gran % (Auto) Neut % (Auto) Lymph % (Auto) [place] % (Auto) Eos % (Auto) Baso % (Auto) Lymph # (Auto) [place] # (Auto) Eos # (Auto) Baso # (Auto) Abs Immat Gran (auto) Absolute Neuts (auto) Absolute Nucleated RBC 0.020 H Nucleated RBC % (auto) 0.1 Neutrophils % (Manual) Band Neutrophils % Lymphocytes % (Manual) Monocytes % (Manual) Abs Neuts (Manual) Lymphocytes # (Manual) Monocytes # (Manual) Nucleated RBCs Platelet Estimate Plt Morphology Comment RBC Morphology Polychromasia Ovalocytes Remington Cells Smear Path Review Sodium 143 Potassium 4.0 Chloride 112 H Carbon Dioxide 18 L Anion Gap 17 BUN 55 H Creatinine 3.11 H Estim Creat Clear Calc 19.8 Estimated GFR 15 POC Glucose 101 Random Glucose 52 L* Lactic Acid Calcium 8.5 D Magnesium 2.3 Total Bilirubin AST ALT Alkaline Phosphatase Troponin I High Sens B-Natriuretic Peptide Total Protein Albumin Lipase Procalcitonin Nasal Screen MRSA (PCR) NEGATIVE Nasal S. aureus Screen POSITIVE A Nasal MRSA/S.aureus Interp SEE NOTE Influenza Type A (PCR) Influenza Type B (PCR) RSV RNA Qual (PCR) SARS-CoV-2 RNA (RT-PCR) Blood Type Antibody Screen 08/02/23 08/02/23 08/02/23 06:44 07:01 07:15 WBC RBC Hgb Hct MCV MCH MCHC RDW Plt Count MPV Immature Gran % (Auto) Neut % (Auto) Lymph % (Auto) [place] % (Auto) Eos % (Auto) Baso % (Auto) Lymph # (Auto) [place] # (Auto) Eos # (Auto) Baso # (Auto) Abs Immat Gran (auto) Absolute Neuts (auto) Absolute Nucleated RBC Nucleated RBC % (auto) Neutrophils % (Manual) Band Neutrophils % Lymphocytes % (Manual) Monocytes % (Manual) Abs Neuts (Manual) Lymphocytes # (Manual) Monocytes # (Manual) Nucleated RBCs Platelet Estimate Plt Morphology Comment RBC Morphology Polychromasia Ovalocytes Remington Cells Smear Path Review Sodium Potassium Chloride Carbon Dioxide Anion Gap BUN Creatinine Estim Creat Clear Calc Estimated GFR POC Glucose 139 H 121 H 121 H Random Glucose Lactic Acid Calcium Magnesium Total Bilirubin AST ALT Alkaline Phosphatase Troponin I High Sens B-Natriuretic Peptide Total Protein Albumin Lipase Procalcitonin Nasal Screen MRSA (PCR) Nasal S. aureus Screen Nasal MRSA/S.aureus Interp Influenza Type A (PCR) Influenza Type B (PCR) RSV RNA Qual (PCR) SARS-CoV-2 RNA (RT-PCR) Blood Type Antibody Screen 08/02/23 11:39 WBC RBC Hgb Hct MCV MCH MCHC RDW Plt Count MPV Immature Gran % (Auto) Neut % (Auto) Lymph % (Auto) [place] % (Auto) Eos % (Auto) Baso % (Auto) Lymph # (Auto) [place] # (Auto) Eos # (Auto) Baso # (Auto) Abs Immat Gran (auto) Absolute Neuts (auto) Absolute Nucleated RBC Nucleated RBC % (auto) Neutrophils % (Manual) Band Neutrophils % Lymphocytes % (Manual) Monocytes % (Manual) Abs Neuts (Manual) Lymphocytes # (Manual) Monocytes # (Manual) Nucleated RBCs Platelet Estimate Plt Morphology Comment RBC Morphology Polychromasia Ovalocytes [place] Cells Smear Path Review Sodium Potassium Chloride Carbon Dioxide Anion Gap BUN Creatinine Estim Creat Clear Calc Estimated GFR POC Glucose 127 H Random Glucose Lactic Acid Calcium Magnesium Total Bilirubin AST ALT Alkaline Phosphatase Troponin I High Sens B-Natriuretic Peptide Total Protein Albumin Lipase Procalcitonin Nasal Screen MRSA (PCR) Nasal S. aureus Screen Nasal MRSA/S.aureus Interp Influenza Type A (PCR) Influenza Type B (PCR) RSV RNA Qual (PCR) SARS-CoV-2 RNA (RT-PCR) Blood Type Antibody Screen Imaging Radiologist's impression: Impressions Chest X-Ray 08/01/23 13:35 IMPRESSION: New multifocal airspace opacities concerning for an atypical pneumonia. Recommend a follow-up examination after treatment to ensure adequate resolution. Assessment and Plan (1) Atrial flutter: Status: Acute (2) Community acquired pneumonia: Status: Acute (3) Anemia: Status: Acute Plan Pleasant 68 year female with background history of morbid obesity, hypertension and diastolic heart failure. She is presenting with pneumonia is on antibiotics. Noticed to be more short of breath today. Clinically appears to be volume overloaded. She also had episode of atrial flutter but is back in sinus rhythm. She is anemic. Recommend 40 mg IV Lasix. Once diuresing well give 1 unit of blood. If she has recurrent episodes of atrial flutter then we may have to discuss anticoagulation. Otherwise will arrange a cardiac event monitor for her as she leaves the hospital. Unsure about the etiology of anemia. Thank you for allowing me to participate in the care of your patient. Please feel free to contact me if you have any questions. Time Spent With Patient Time: Total time managing care of this patient today ____ minutes. Procedures Date of Service Date of Service: 08/02/23
--- NOTE | 2023-08-02 12:53 | PHA.PROG ---
Admission Date/Time: August 01, 2023 17:23 Indication:respiratory infection Weight in k.862 kg Adjusted body weight in K.605 [place] body weight in K.1 Obesity Dosing Indication % IBW: OBESE Serum Creatinine - Last 168 Hours 08/01/23 08/02/23 14:15 05:39 Creatinine 3.09 H 3.11 H Estimated CrCl and GFR - Last 168 Hours 08/01/23 08/02/23 14:15 05:39 Estim Creat Clear Calc 19.9 19.8 Estimated GFR 15 15 Vancomycin Loading Dose: 1750 Current Vancomycin Dosing Regimen: 500 Q24H Vancomycin Monitoring using AUC goal of 400 - 600 range with trough as surrogate marker: 563 Date and Time for next Vancomycin Level to be drawn: 08/04 @1600 Pharmacist Comments on Vancomycin Plan: obese model used, patient has CKD, load should have been higher Vancomycin dosing will take advantage of [employer] as a clinical decision support tool that uses Bayesian modeling to calculate individual patient's pharmacokinetic parameters and forecast the patient's drug concentration time course with the target goal AUC 24 range of 400 - 600 mg/L/hr.
[2023-08-02] MEDS: cefEPime HCl 0.5 GM in 0.9 % Sodium Chloride 50 ML IV (13:14)
--- NOTE | 2023-08-02 13:32 | HO.PM.IMPN ---
Subjective Subjective Date of Service: 08/02/23 Interval History: converted to NSR around 18:15 yesterday still c/o cough, sputum + dyspnea no fever Review of Systems Review of Systems: Yes all other systems are reviewed and are negative Physical Exam Vital Signs: Vital Signs: Last Vital Signs Temp 97.9 F 08/02/23 06:22 Pulse 59 08/02/23 10:57 Resp 13 08/02/23 10:57 BP 142/54 H 08/02/23 10:57 Pulse Ox 97 08/02/23 10:57 O2 Del Method Nasal Cannula 08/02/23 10:57 O2 Flow Rate 2 08/02/23 10:57 Oxygen Flow Rate 4 08/01/23 13:21 BMI result Body Mass Index 43.9 Gen: in no acute distress HEENT: sclera anicteric, moist mucus membranes Neck: supple Lungs: bilateral inspiratory wet crackles Heart regular rate and rhythm, 2/6 systolic murmur at base Abd: soft, non-tender, non-distended Ext: 1+ bilateral leg edema Skin: warm/well-perfused Neuro: alert and oriented x3, no focal findings Psych: appropriate affect Objective Data Active Medications Acetaminophen (Acetaminophen 325 Mg Tablet) 650 mg PO Q6H PRN PRN Reason: Pain, Mild (Pain Scale 1-3) Ascorbic Acid (Ascorbic Acid 500 Mg Tablet) 500 mg PO DAILY [facility] Last Admin: 08/02/23 07:58 Dose: 500 mg Documented By: ROXANE Aspirin (Aspirin 81 Mg Tab.Chew) 81 mg PO DAILY [facility] Last Admin: 08/02/23 07:58 Dose: 81 mg Documented By: ROXANE Atorvastatin Calcium (Atorvastatin Calcium 80 Mg Tablet) 80 mg PO BEDTIME [facility] Last Admin: 08/01/23 22:00 Dose: 80 mg Documented By: MARIBELL Carvedilol (Carvedilol 25 Mg Tablet) 25 mg PO BID@0900,1500 [facility]; Protocol Last Admin: 08/02/23 08:01 Dose: Not Given Documented By: ROXANE Non-Admin Reason: Decreased Heart Rate Dextrose (Dextrose 50 % 25 Gm/50 Ml Syringe) 25 gm IVPUSH Q15M PRN; Protocol PRN Reason: per Hypoglycemia Standing Ord. Last Admin: 08/02/23 06:24 Dose: 25 gm Documented By: MARIBELL Docusate Sodium (Docusate Sodium 100 Mg Capsule) 100 mg PO DAILY PRN PRN Reason: Constipation Ferrous Sulfate (Ferrous Sulfate 324 Mg Tablet.Dr) 324 mg PO DAILY [facility] Last Admin: 08/02/23 07:59 Dose: 324 mg Documented By: ROXANE Fluoxetine HCl (Fluoxetine Hcl 20 Mg Capsule) 40 mg PO DAILY [facility] Last Admin: 08/02/23 08:00 Dose: 40 mg Documented By: ROXANE Furosemide (Furosemide 40 Mg Tablet) 40 mg PO BID@0900,1800 [facility]; Protocol Last Admin: 08/02/23 07:58 Dose: 40 mg Documented By: ROXANE Furosemide (Furosemide 40 Mg/4 Ml Vial) 40 mg IVPUSH BID@0900,1800 [facility]; Protocol Last Admin: 08/02/23 08:34 Dose: 40 mg Documented By: ROXANE Glucose (Glucose Gel 15 Gm Gel..Gram.) 15 gm PO Q15M PRN; Protocol PRN Reason: per Hypoglycemia Standing Ord. Hydralazine HCl (Hydralazine Hcl 25 Mg Tablet) 25 mg PO BID@0900,1500 [facility]; Protocol Last Admin: 08/02/23 07:58 Dose: 25 mg Documented By: ROXANE Cefepime HCl 0.5 gm/ Sodium (Chloride) 50 mls @ 100 mls/hr IV Q24H [facility] Last Admin: 08/02/23 13:14 Dose: 100 mls/hr Documented By: ROXANE Vancomycin HCl 500 mg/ Sodium (Chloride) 110 mls @ 110 mls/hr IV Q24H [facility] Insulin Glargine (Insulin Glargine,Hum.Rec.Anlog 100 Unit/Ml 10 Ml Vial) 25 unit SUBCUT BEDTIME [facility] Insulin Human Lispro (Insulin Lispro 100 Unit/Ml 3 Ml Vial) 0 unit SUBCUT QIDACHS [facility]; Protocol Last Admin: 08/02/23 11:42 Dose: Not Given Documented By: ROXANE Non-Admin Reason: No Insulin Coverage Lisinopril (Lisinopril 10 Mg Tablet) 10 mg PO DAILY [facility]; Protocol Last Admin: 08/02/23 07:59 Dose: 10 mg Documented By: ROXANE Loratadine (Loratadine 10 Mg Tablet) 10 mg PO DAILY [facility] Last Admin: 08/02/23 07:59 Dose: 10 mg Documented By: ROXANE Multivitamins/Vitamin C (Multivitamin Tablet) 1 tab PO DAILY [facility] Last Admin: 08/02/23 07:59 Dose: 1 tab Documented By: ROXANE Ondansetron HCl (Ondansetron Hcl 4 Mg/2 Ml Vial) 4 mg IVPUSH Q8H PRN PRN Reason: Nausea and Vomiting Pharmacy Consult (Consult Rx Vancomycin Dosing) 1 each MISCELLANE DAILY [facility] Sodium Chloride (0.9 % Sodium Chloride Flush 3 Ml Syringe) 3 ml IVFLUSH QSHIFT [facility] Last Admin: 08/02/23 08:01 Dose: 3 ml Documented By: ROXANE Labs 08/02/23 05:39 08/02/23 05:39 Labs: Laboratory Results - last 24 hr 08/01/23 08/01/23 08/01/23 14:15 16:31 18:29 MCV 91.3 MCH 28.7 MCHC 31.5 RDW 15.3 Plt Count 460 H MPV 9.9 Immature Gran % (Auto) Cancelled Neut % (Auto) Cancelled Lymph % (Auto) Cancelled [place] % (Auto) Cancelled Eos % (Auto) Cancelled Baso % (Auto) Cancelled Lymph # (Auto) Cancelled [place] # (Auto) Cancelled Eos # (Auto) Cancelled Baso # (Auto) Cancelled Abs Immat Gran (auto) Cancelled Absolute Neuts (auto) Cancelled Absolute Nucleated RBC 0.020 H Nucleated RBC % (auto) 0.1 Neutrophils % (Manual) 92 H Band Neutrophils % 2 L Lymphocytes % (Manual) 4 L Monocytes % (Manual) 2 Abs Neuts (Manual) 20.7 H Lymphocytes # (Manual) 0.9 L Monocytes # (Manual) 0.4 Nucleated RBCs 1 H Platelet Estimate INCREASED Plt Morphology Comment NORMAL RBC Morphology NOTED Polychromasia 1+ (0-2) Ovalocytes 1+ (5-14) [place] Cells 1+ (0-2) Smear Path Review SEE NOTE Anion Gap 17 Estim Creat Clear Calc 19.9 Estimated GFR 15 POC Glucose Random Glucose 68 Lactic Acid 0.7 Calcium 9.2 Magnesium 2.2 Total Bilirubin 0.4 AST 56 H ALT 65 H Alkaline Phosphatase 169 H B-Natriuretic Peptide 1409 H Total Protein 6.7 Albumin 2.8 L Lipase 14 Procalcitonin 0.41 Nasal Screen MRSA (PCR) Nasal S. aureus Screen Nasal MRSA/S.aureus Interp Influenza Type A (PCR) NEGATIVE Influenza Type B (PCR) NEGATIVE RSV RNA Qual (PCR) NEGATIVE SARS-CoV-2 RNA (RT-PCR) NEGATIVE Blood Type O Positive Antibody Screen NEGATIVE 08/01/23 08/01/23 08/02/23 18:31 21:36 05:39 MCV 93.0 MCH 29.1 MCHC 31.3 RDW 15.2 Plt Count 413 H MPV 9.6 Immature Gran % (Auto) Neut % (Auto) Lymph % (Auto) [place] % (Auto) Eos % (Auto) Baso % (Auto) Lymph # (Auto) [place] # (Auto) Eos # (Auto) Baso # (Auto) Abs Immat Gran (auto) Absolute Neuts (auto) Absolute Nucleated RBC 0.020 H Nucleated RBC % (auto) 0.1 Neutrophils % (Manual) Band Neutrophils % Lymphocytes % (Manual) Monocytes % (Manual) Abs Neuts (Manual) Lymphocytes # (Manual) Monocytes # (Manual) Nucleated RBCs Platelet Estimate Plt Morphology Comment RBC Morphology Polychromasia Ovalocytes [place] Cells Smear Path Review Anion Gap 17 Estim Creat Clear Calc 19.8 Estimated GFR 15 POC Glucose 101 Random Glucose 52 L* Lactic Acid Calcium 8.5 D Magnesium 2.3 Total Bilirubin AST ALT Alkaline Phosphatase B-Natriuretic Peptide Total Protein Albumin Lipase Procalcitonin Nasal Screen MRSA (PCR) NEGATIVE Nasal S. aureus Screen POSITIVE A Nasal MRSA/S.aureus Interp SEE NOTE Influenza Type A (PCR) Influenza Type B (PCR) RSV RNA Qual (PCR) SARS-CoV-2 RNA (RT-PCR) Blood Type Antibody Screen 08/02/23 08/02/23 08/02/23 06:44 07:01 07:15 MCV MCH MCHC RDW Plt Count MPV Immature Gran % (Auto) Neut % (Auto) Lymph % (Auto) [place] % (Auto) Eos % (Auto) Baso % (Auto) Lymph # (Auto) [place] # (Auto) Eos # (Auto) Baso # (Auto) Abs Immat Gran (auto) Absolute Neuts (auto) Absolute Nucleated RBC Nucleated RBC % (auto) Neutrophils % (Manual) Band Neutrophils % Lymphocytes % (Manual) Monocytes % (Manual) Abs Neuts (Manual) Lymphocytes # (Manual) Monocytes # (Manual) Nucleated RBCs Platelet Estimate Plt Morphology Comment RBC Morphology Polychromasia Ovalocytes Remington Cells Smear Path Review Anion Gap Estim Creat Clear Calc Estimated GFR POC Glucose 139 H 121 H 121 H Random Glucose Lactic Acid Calcium Magnesium Total Bilirubin AST ALT Alkaline Phosphatase B-Natriuretic Peptide Total Protein Albumin Lipase Procalcitonin Nasal Screen MRSA (PCR) Nasal S. aureus Screen Nasal MRSA/S.aureus Interp Influenza Type A (PCR) Influenza Type B (PCR) RSV RNA Qual (PCR) SARS-CoV-2 RNA (RT-PCR) Blood Type Antibody Screen 08/02/23 11:39 MCV MCH MCHC RDW Plt Count MPV Immature Gran % (Auto) Neut % (Auto) Lymph % (Auto) [place] % (Auto) Eos % (Auto) Baso % (Auto) Lymph # (Auto) [place] # (Auto) Eos # (Auto) Baso # (Auto) Abs Immat Gran (auto) Absolute Neuts (auto) Absolute Nucleated RBC Nucleated RBC % (auto) Neutrophils % (Manual) Band Neutrophils % Lymphocytes % (Manual) Monocytes % (Manual) Abs Neuts (Manual) Lymphocytes # (Manual) Monocytes # (Manual) Nucleated RBCs Platelet Estimate Plt Morphology Comment RBC Morphology Polychromasia Ovalocytes [place] Cells Smear Path Review Anion Gap Estim Creat Clear Calc Estimated GFR POC Glucose 127 H Random Glucose Lactic Acid Calcium Magnesium Total Bilirubin AST ALT Alkaline Phosphatase B-Natriuretic Peptide Total Protein Albumin Lipase Procalcitonin Nasal Screen MRSA (PCR) Nasal S. aureus Screen Nasal MRSA/S.aureus Interp Influenza Type A (PCR) Influenza Type B (PCR) RSV RNA Qual (PCR) SARS-CoV-2 RNA (RT-PCR) Blood Type Antibody Screen Assessment and Plan (1) Atrial flutter: Status: Acute (2) Community acquired pneumonia: Status: Acute Plan d2 68yo F with HFpEF, CKD3, DM2, HTN, AMY on CPAP, chronic hypoxic resp failure on 2L home O2 presenting with 1wk of worsening dyspnea after URI symptoms found to be septic from multifocal pneumonia, also with CHF exacerbation + new-onset atrial flutter/RVR sepsis with acute/chronic hypoxic respiratory failure due to CAP - MRSA swab positive, change ABX to vancomycin + cefepime, follow BCx + Legionella/pneumococcal UAGs, trend PCT - wean O2 as tolerated to home dose of 2L new-onset atrial flutter/RVR - converted to NSR in ED, continue carvedilol - hold off on further anticoagulation while anemia is addressed, continue cardiac monitoring - Cardiology consulted - treated CAP as above acute/chronic HFpEF - IV furosemide, monitor electrolytes/I+O/BNP PACHECO/CKD3 - monitor Cr with diuresis, suspect some degree of cardiorenal syndrome anemia of chronic disease - monitor H+H, check FOBT - T+S, consider transfusion after further diuresis DM2 - basal-bolus insulin [reduce Lantus dose due to hypoglycemia] HTN - hydralazine, carvedilol, lisinopril HLD - atorvastatin AMY - CPAP at night mood disorder - fluoxetine VTE ppx - SCDs dispo - TBD In my clinical judgment, the patient requires continued inpatient hospitalization for the following reasons: IV ABX, IV diuresis, possible transfusion Time Spent With Patient Time: Total time managing care of this patient today ___45_ minutes. Quality Stroke Does the patient have a stroke diagnosis?: No VTE Prior VTE?: No VTE Risk Level:: Medical - moderate - high VTE Device Contraindication: Treatment Not Indicated VTE Drug Contraindication: N/A - Med Ordered
[2023-08-02] MEDS: carvediloL 25 MG TABLET PO (15:34)
[2023-08-02 17:04] LABS: Glucose, Whole Blood 154 mg/dL (60-115)
[2023-08-02] MEDS: vancomycin HCL 500 MG in 0.9 % Sodium Chloride 100 ML 110 MG IV (18:44)
[2023-08-02] MEDS: Insulin Lispro 100 UNIT/ML 3 ML VIAL SUBCUT (18:51)
[2023-08-02 21:25] LABS: Glucose, Whole Blood 129 mg/dL (60-115)
--- NOTE | 2023-08-02 21:27 | PC.NURSE ---
pt denies cp/sob/n/v at this time. pt ate 100% dinner. nsr on monitor. 97% on 2L nc which is baseline for pt. poc 129; held insulin lispro. vss. call perez within reach.
[2023-08-02] MEDS: Atorvastatin Calcium 80 MG TABLET PO (21:33)
[2023-08-02] MEDS: Insulin Glargine,Hum.rec.anlog 100 UNIT/ML 10 ML VIAL 25 UNIT SUBCUT (21:33)
[2023-08-03] VITALS (10 sets, daily range): BP systolic 131–166; BP diastolic 58–98; PULSE 62–105; RESP 16–20; TEMP 35.9–37.2; O2SAT 96–97
[2023-08-03 07:30] LABS: Hematocrit 25.2 % (37.0-47.0); Hemoglobin 7.7 g/dl (12.0-16.0); Mean Corpuscular HGB Conc 30.6 g/dl (31.0-35.0); Mean Corpuscular Hemoglobin 28.5 pg (27.0-33.0); Mean Corpuscular Volume 93.3 fL (80.0-98.0); Mean Platelet Volume 9.9 fL (9.4-12.3); NRBC Pct Auto 0.1 /100WBC (0.0-0.2); Platelet Count 447 X10*3/uL (160-400); Red Cell Distribution Width 15.4 % (11.0-16.0); White Blood Count 20.6 X10*3/uL (4.8-10.8)
[2023-08-03 07:32] LABS: Retic HGB Equivalent 24.4 pg (30.0-35.0); Reticulocyte Percent 2.3 % (0.5-1.8); Reticulocytes Absolute 0.062 X10*6/uL (0.026-0.095)
[2023-08-03 07:39] LABS: Glucose, Whole Blood 108 mg/dL (60-115)
[2023-08-03 07:57] LABS: Anion Gap 19 (12-20); Blood Urea Nitrogen 60 mg/dL (9-16); Calcium 8.9 mg/dL (8.4-10.2); Carbon Dioxide 18 mmol/L (22-29); Chloride 112 mmol/L (96-108); Creatinine Clr Calc Pharmacy 19.5; Estimated Glomerular Filt Rate 15; Glucose Random 117 mg/dL (60-115); Iron 17 mcg/dL (30-160); Lactate Dehydrogenase 324 U/L (122-220); Magnesium 2.2 mg/dL (1.6-2.6); Percent Iron Saturation 19 % (15-50); Potassium 3.7 mmol/L (3.3-5.1); Sodium 145 mmol/L (135-145); Total Iron Binding Capacity 90 mcg/dL (228-428); Unsaturated Iron Binding 73 ug/dL
[2023-08-03] MEDS: lisinopriL 10 MG TABLET PO (08:11)
[2023-08-03] MEDS: Loratadine 10 MG TABLET PO (08:11)
[2023-08-03] MEDS: FLUoxetine HCl 20 MG CAPSULE 40 MG PO (08:11)
[2023-08-03] MEDS: Ferrous Sulfate 324 MG TABLET.DR PO (08:11)
[2023-08-03] MEDS: carvediloL 25 MG TABLET PO ×2 (08:12→15:27)
[2023-08-03] MEDS: 0.9 % Sodium Chloride Flush 3 ML SYRINGE IVFLUSH ×2 (08:12→20:37)
[2023-08-03] MEDS: Aspirin 81 MG TAB.CHEW PO (08:12)
[2023-08-03] MEDS: Multivitamin TABLET 1 TAB PO (08:12)
[2023-08-03] MEDS: Ascorbic Acid 500 MG TABLET PO (08:12)
[2023-08-03] MEDS: hydrALAZINE HCl 25 MG TABLET PO ×2 (08:12→15:27)
[2023-08-03] MEDS: Furosemide 40 MG/4 ML VIAL IVPUSH ×2 (08:19→18:24)
[2023-08-03 08:23] LABS: Folate 13.5 ng/mL (> or = 4.0); Procalcitonin 0.37 ng/mL; Vitamin B12 811 pg/mL (200-900)
[2023-08-03 08:44] LABS: Ferritin 4244 ng/mL (10-250)
[2023-08-03 11:08] LABS: B Type Natriuretic Peptide 655 pg/mL (<100)
[2023-08-03 11:34] LABS: Glucose, Whole Blood 144 mg/dL (60-115)
--- NOTE | 2023-08-03 12:13 | PM.PNCARD ---
Subjective Subjective Date of Service: 08/03/23 Interval history: Seen examined at bedside. She is saying her breathing a little better than yesterday. Still short of breath. Clinically volume overloaded. Anemic and will be requiring some blood transfusion eventually. Physical Exam Vital Signs: Last Vital Signs Temp 97.7 F 08/03/23 11:31 Pulse 82 08/03/23 11:31 Resp 20 08/03/23 11:31 BP 132/72 08/03/23 11:31 Pulse Ox 97 08/03/23 11:31 O2 Del Method Nasal Cannula 08/03/23 11:31 O2 Flow Rate 2 08/03/23 11:31 Oxygen Flow Rate 4 08/01/23 13:21 BMI result Body Mass Index 43.9 GENERAL APPEARANCE: in no acute distress, morbid obesity. On supplemental oxygen. NECK: no carotid bruit, + jugular venous distention. SKIN: no suspicious lesions, warm and dry. HEART: no murmurs, regular rate and rhythm. LUNGS: clear to auscultation bilaterally. ABDOMEN: soft, nontender. EXTREMITIES: + edema. PERIPHERAL PULSES: equal. NEUROLOGIC: No gross deficits, AAO X 3 Objective Labs and Meds 08/03/23 06:31 08/03/23 06:31 Lab results: Laboratory Results - last 24 hr 08/02/23 08/02/23 08/03/23 16:58 21:22 06:31 WBC 20.6 H RBC 2.70 L Hgb 7.7 L Hct 25.2 L MCV 93.3 MCH 28.5 MCHC 30.6 L RDW 15.4 Plt Count 447 H MPV 9.9 Absolute Nucleated RBC 0.020 H Nucleated RBC % (auto) 0.1 Absolute Retic 0.062 Percent Retic 2.3 H Immature Retic Fraction 31.0 H Retic Hgb Equivalent 24.4 L Sodium 145 Potassium 3.7 Chloride 112 H Carbon Dioxide 18 L Anion Gap 19 BUN 60 H Creatinine 3.16 H Estim Creat Clear Calc 19.5 Estimated GFR 15 POC Glucose 154 H 129 H Random Glucose 117 H Calcium 8.9 Magnesium 2.2 Iron 17 L TIBC 90 L % Saturation 19 Unsat Iron Binding 73 Ferritin 4244 H Lactate Dehydrogenase 324 H B-Natriuretic Peptide 655 H Vitamin B12 811 Folate 13.5 Procalcitonin 0.37 08/03/23 08/03/23 07:33 11:28 WBC RBC Hgb Hct MCV MCH MCHC RDW Plt Count MPV Absolute Nucleated RBC Nucleated RBC % (auto) Absolute Retic Percent Retic Immature Retic Fraction Retic Hgb Equivalent Sodium Potassium Chloride Carbon Dioxide Anion Gap BUN Creatinine Estim Creat Clear Calc Estimated GFR POC Glucose 108 144 H Random Glucose Calcium Magnesium Iron TIBC % Saturation Unsat Iron Binding Ferritin Lactate Dehydrogenase B-Natriuretic Peptide Vitamin B12 Folate Procalcitonin Progress Note: A&P Assessment and plan (1) Atrial flutter: Status: Acute (2) Community acquired pneumonia: Status: Acute (3) Congestive heart failure: Status: Acute Plan [age] year female with acute on chronic congestive heart failure, paroxysmal atrial flutter and pneumonia. She is back in sinus rhythm. She is anemic and has not been started on anticoagulation currently. I think if she does not have prolonged episodes of atrial flutter then we can hold anticoagulation for now. Continue IV diuretics. Potentially can be transfused a unit of blood by tomorrow. Continue antibiotics as before. Thank you for allowing me to participate in the care of your patient. Please feel free to contact me if you have any questions. Time Spent With Patient Time: Total time managing care of this patient today ____ minutes. Progress Note: Quality Stroke Does the patient have a stroke diagnosis?: No Procedures Date of Service Date of Service: 08/03/23
--- NOTE | 2023-08-03 12:36 | P.PNIM_ITS ---
Subjective Subjective Date of Service: 08/03/23 Interval History: back in AF this AM around 5:15 coughing, no sputum on 2L O2 Review of Systems Review of Systems: Yes all other systems are reviewed and are negative Physical Exam 2 Vital Signs: Vital Signs: Last Vital Signs Temp 97.7 F 08/03/23 11:31 Pulse 82 08/03/23 11:31 Resp 20 08/03/23 11:31 BP 132/72 08/03/23 11:31 Pulse Ox 97 08/03/23 11:31 O2 Del Method Nasal Cannula 08/03/23 11:31 O2 Flow Rate 2 08/03/23 11:31 Oxygen Flow Rate 4 08/01/23 13:21 BMI result Body Mass Index 43.9 Gen: in no acute distress HEENT: sclera anicteric, moist mucus membranes Neck: supple Lungs: bilateral inspiratory wet crackles Heart: irregularly irregular, 2/6 systolic murmur at base Abd: soft, non-tender, non-distended Ext: 1+ bilateral leg edema Skin: warm/well-perfused Neuro: alert and oriented x3, no focal findings Psych: appropriate affect Objective Data Active Medications Acetaminophen (Acetaminophen 325 Mg Tablet) 650 mg PO Q6H PRN PRN Reason: Pain, Mild (Pain Scale 1-3) Ascorbic Acid (Ascorbic Acid 500 Mg Tablet) 500 mg PO DAILY [facility] Last Admin: 08/03/23 08:12 Dose: 500 mg Documented By: ESMER Aspirin (Aspirin 81 Mg Tab.Chew) 81 mg PO DAILY [facility] Last Admin: 08/03/23 08:12 Dose: 81 mg Documented By: ESMER Atorvastatin Calcium (Atorvastatin Calcium 80 Mg Tablet) 80 mg PO BEDTIME [facility] Last Admin: 08/02/23 21:33 Dose: 80 mg Documented By: KASH Carvedilol (Carvedilol 25 Mg Tablet) 25 mg PO BID@0900,1500 [facility]; Protocol Last Admin: 08/03/23 08:12 Dose: 25 mg Documented By: ESMER Dextrose (Dextrose 50 % 25 Gm/50 Ml Syringe) 25 gm IVPUSH Q15M PRN; Protocol PRN Reason: per Hypoglycemia Standing Ord. Last Admin: 08/02/23 06:24 Dose: 25 gm Documented By: MARIBELL Docusate Sodium (Docusate Sodium 100 Mg Capsule) 100 mg PO DAILY PRN PRN Reason: Constipation Ferrous Sulfate (Ferrous Sulfate 324 Mg Tablet.Dr) 324 mg PO DAILY [facility] Last Admin: 08/03/23 08:11 Dose: 324 mg Documented By: ESMER Fluoxetine HCl (Fluoxetine Hcl 20 Mg Capsule) 40 mg PO DAILY [facility] Last Admin: 08/03/23 08:11 Dose: 40 mg Documented By: ESMER Furosemide (Furosemide 40 Mg/4 Ml Vial) 40 mg IVPUSH BID@0900,1800 [facility]; Protocol Last Admin: 08/03/23 08:19 Dose: 40 mg Documented By: ESMER Glucose (Glucose Gel 15 Gm Gel..Gram.) 15 gm PO Q15M PRN; Protocol PRN Reason: per Hypoglycemia Standing Ord. Hydralazine HCl (Hydralazine Hcl 25 Mg Tablet) 25 mg PO BID@0900,1500 [facility]; Protocol Last Admin: 08/03/23 08:12 Dose: 25 mg Documented By: ESMER Vancomycin HCl 500 mg/ Sodium (Chloride) 110 mls @ 110 mls/hr IV Q24H [facility] Last Infusion: 08/02/23 20:05 Dose: Infused Documented By: KASH Cefepime HCl 0.5 gm/ Sodium (Chloride) 50 mls @ 100 mls/hr IV Q24H [facility] Sodium Chloride (Ns) 100 mls @ 100 mls/hr IV ONCE ONE Stop: 08/03/23 13:33 Insulin Glargine (Insulin Glargine,Hum.Rec.Anlog 100 Unit/Ml 10 Ml Vial) 25 unit SUBCUT BEDTIME [facility] Last Admin: 08/02/23 21:33 Dose: 25 unit Documented By: KASH Insulin Human Lispro (Insulin Lispro 100 Unit/Ml 3 Ml Vial) 0 unit SUBCUT QIDACHS [facility]; Protocol Last Admin: 08/03/23 11:38 Dose: Not Given Documented By: ESMER Non-Admin Reason: No Insulin Coverage Lisinopril (Lisinopril 10 Mg Tablet) 10 mg PO DAILY [facility]; Protocol Last Admin: 08/03/23 08:11 Dose: 10 mg Documented By: ESMER Loratadine (Loratadine 10 Mg Tablet) 10 mg PO DAILY [facility] Last Admin: 08/03/23 08:11 Dose: 10 mg Documented By: ESMER Multivitamins/Vitamin C (Multivitamin Tablet) 1 tab PO DAILY [facility] Last Admin: 08/03/23 08:12 Dose: 1 tab Documented By: ESMER Ondansetron HCl (Ondansetron Hcl 4 Mg/2 Ml Vial) 4 mg IVPUSH Q8H PRN PRN Reason: Nausea and Vomiting Pharmacy Consult (Consult Rx Vancomycin Dosing) 1 each MISCELLANE DAILY [facility] Sodium Chloride (0.9 % Sodium Chloride Flush 3 Ml Syringe) 3 ml IVFLUSH QSHIFT [facility] Last Admin: 08/03/23 08:12 Dose: 3 ml Documented By: ESMER Labs 08/03/23 06:31 08/03/23 06:31 Labs: Laboratory Results - last 24 hr 08/02/23 08/02/23 08/03/23 16:58 21:22 06:31 MCV 93.3 MCH 28.5 MCHC 30.6 L RDW 15.4 Plt Count 447 H MPV 9.9 Absolute Nucleated RBC 0.020 H Nucleated RBC % (auto) 0.1 Absolute Retic 0.062 Percent Retic 2.3 H Immature Retic Fraction 31.0 H Retic Hgb Equivalent 24.4 L Anion Gap 19 Estim Creat Clear Calc 19.5 Estimated GFR 15 POC Glucose 154 H 129 H Random Glucose 117 H Calcium 8.9 Magnesium 2.2 Iron 17 L TIBC 90 L % Saturation 19 Unsat Iron Binding 73 Ferritin 4244 H Lactate Dehydrogenase 324 H B-Natriuretic Peptide 655 H Vitamin B12 811 Folate 13.5 Procalcitonin 0.37 08/03/23 08/03/23 07:33 11:28 MCV MCH MCHC RDW Plt Count MPV Absolute Nucleated RBC Nucleated RBC % (auto) Absolute Retic Percent Retic Immature Retic Fraction Retic Hgb Equivalent Anion Gap Estim Creat Clear Calc Estimated GFR POC Glucose 108 144 H Random Glucose Calcium Magnesium Iron TIBC % Saturation Unsat Iron Binding Ferritin Lactate Dehydrogenase B-Natriuretic Peptide Vitamin B12 Folate Procalcitonin Microbiology Microbiology Results: Microbiology 08/01/23 16:31 Blood Culture - Preliminary Blood - Venous No growth after 24 hours. 08/01/23 14:15 Blood Culture - Preliminary Blood - Venous No growth after 24 hours. Assessment and Plan (1) Atrial flutter: Status: Acute (2) Community acquired pneumonia: Status: Acute Plan d3 68yo F with HFpEF, CKD3, DM2, HTN, AMY on CPAP, chronic hypoxic resp failure on 2L home O2 presenting with 1wk of worsening dyspnea after URI symptoms found to be septic from multifocal pneumonia, also with CHF exacerbation + new- onset atrial flutter/RVR sepsis with acute/chronic hypoxic respiratory failure due to CAP - MRSA swab positive, on d2 vancomycin + cefepime, follow BCx + Legionella/pneumococcal UAGs, trend PCT - weaned O2 to home dose of 2L new-onset atrial flutter/RVR - continue carvedilol for rate control - hold off on further anticoagulation while anemia is addressed - continue cardiac monitoring - Cardiology consulted - treat CAP as above acute/chronic HFpEF - continue IV furosemide, monitor electrolytes/I+O/BNP PACHECO/CKD3 - monitor Cr with diuresis, suspect some degree of cardiorenal syndrome anemia of chronic disease - will give 1u pRBCs today - monitor H+H, check FOBT DM2 - basal-bolus insulin [reducedLantus dose due to hypoglycemia] HTN - hydralazine, carvedilol, lisinopril HLD - atorvastatin AMY - CPAP at night mood disorder - fluoxetine VTE ppx - SCDs dispo - TBD In my clinical judgment, the patient requires continued inpatient hospitalization for the following reasons: IV ABX, IV diuresis, transfusion Time Spent With Patient Time: Total time managing care of this patient today __45__ minutes. Quality Stroke Does the patient have a stroke diagnosis?: No VTE Prior VTE?: No VTE Risk Level:: Medical - moderate - high VTE Device Contraindication: Treatment Not Indicated VTE Drug Contraindication: N/A - Med Ordered
--- NOTE | 2023-08-03 12:47 | MHC.CM.PN ---
IMM 08/03. Pt lives at home with her son and [id number], uses a cane and home O2 (2L at baseline) through [facility], [place]. Pt desires to discharge back home with family support and does not wish to have any services. Pts son to transport her home. Pts [id number] Laura is HCP. PCP: Dr. Sadi Harden
[2023-08-03] MEDS: cefEPime HCl 0.5 GM in 0.9 % Sodium Chloride 50 ML IV (13:09)
[2023-08-03 16:18] LABS: Glucose, Whole Blood 180 mg/dL (60-115)
[2023-08-03] MEDS: Insulin Lispro 100 UNIT/ML 3 ML VIAL SUBCUT ×2 (16:50→20:37)
[2023-08-03] MEDS: vancomycin HCL 500 MG in 0.9 % Sodium Chloride 100 ML 110 MG IV (18:23)
[2023-08-03 20:26] LABS: Glucose, Whole Blood 189 mg/dL (60-115)
[2023-08-03] MEDS: Atorvastatin Calcium 80 MG TABLET PO (20:37)
[2023-08-03] MEDS: Insulin Glargine,Hum.rec.anlog 100 UNIT/ML 10 ML VIAL 25 UNIT SUBCUT (20:38)
[2023-08-03 21:58] LABS: OBS Int Ctl Valid YES; OBS1 POSITIVE (NEGATIVE)
[2023-08-04] VITALS (10 sets, daily range): BP systolic 122–174; BP diastolic 57–78; PULSE 58–78; RESP 15–20; TEMP 36.1–37; O2SAT 84–98
[2023-08-04 06:39] LABS: B Type Natriuretic Peptide 669 pg/mL (<100)
[2023-08-04 06:49] LABS: Hematocrit 27.2 % (37.0-47.0); Hemoglobin 8.3 g/dl (12.0-16.0); Mean Corpuscular HGB Conc 30.5 g/dl (31.0-35.0); Mean Corpuscular Volume 95.1 fL (80.0-98.0); NRBC Pct Auto 0.2 /100WBC (0.0-0.2); Platelet Count 463 X10*3/uL (160-400); Red Blood Count 2.86 X10*6/uL (4.20-5.50); Red Cell Distribution Width 15.3 % (11.0-16.0); White Blood Count 16.6 X10*3/uL (4.8-10.8)
[2023-08-04 07:01] LABS: Anion Gap 19 (12-20); Blood Urea Nitrogen 63 mg/dL (9-16); Calcium 8.4 mg/dL (8.4-10.2); Carbon Dioxide 18 mmol/L (22-29); Chloride 110 mmol/L (96-108); Creatinine Clr Calc Pharmacy 21.4; Estimated Glomerular Filt Rate 16; Glucose Random 125 mg/dL (60-115); Magnesium 2.2 mg/dL (1.6-2.6); Sodium 143 mmol/L (135-145)
[2023-08-04 07:30] LABS: Glucose, Whole Blood 117 mg/dL (60-115)
[2023-08-04] MEDS: Ascorbic Acid 500 MG TABLET PO (09:21)
[2023-08-04] MEDS: FLUoxetine HCl 20 MG CAPSULE 40 MG PO (09:21)
[2023-08-04] MEDS: 0.9 % Sodium Chloride Flush 3 ML SYRINGE IVFLUSH ×3 (09:21→20:49)
[2023-08-04] MEDS: Acetaminophen 325 MG TABLET 650 MG PO (09:21)
[2023-08-04] MEDS: hydrALAZINE HCl 25 MG TABLET PO ×2 (09:21→14:30)
[2023-08-04] MEDS: Loratadine 10 MG TABLET PO (09:21)
[2023-08-04] MEDS: Aspirin 81 MG TAB.CHEW PO (09:21)
[2023-08-04] MEDS: carvediloL 25 MG TABLET PO ×2 (09:21→14:30)
[2023-08-04] MEDS: Furosemide 40 MG/4 ML VIAL IVPUSH ×2 (09:21→17:06)
[2023-08-04] MEDS: lisinopriL 10 MG TABLET PO ×2 (09:21→11:29)
[2023-08-04] MEDS: Ferrous Sulfate 324 MG TABLET.DR PO (09:21)
[2023-08-04] MEDS: Multivitamin TABLET 1 TAB PO (09:21)
--- NOTE | 2023-08-04 10:29 | HO.PM.IMPN ---
Subjective Subjective Date of Service: 08/04/23 Interval History: feels better after blood transfusion- less dyspneic no fever converted back to NSR at 18:15 last night FOBT+ Review of Systems Review of Systems: Yes all other systems are reviewed and are negative Physical Exam Vital Signs: Vital Signs: Last Vital Signs Temp 97.7 F 08/04/23 07:19 Pulse 60 08/04/23 07:19 Resp 20 08/04/23 07:19 BP 174/72 H 08/04/23 07:19 Pulse Ox 95 08/04/23 07:19 O2 Del Method Nasal Cannula 08/04/23 07:19 O2 Flow Rate 2 08/04/23 07:19 Oxygen Flow Rate 4 08/01/23 13:21 BMI result Body Mass Index 43.9 Gen: in no acute distress HEENT: sclera anicteric, moist mucus membranes Neck: supple Lungs: a few inspiratory crackles Heart: regular,2/6 systolic murmur at base Abd: soft, non-tender, non-distended Ext: trace bilateral leg edema Skin: warm/well-perfused Neuro: alert and oriented x3, no focal findings Psych: appropriate affect Objective Data Active Medications Acetaminophen (Acetaminophen 325 Mg Tablet) 650 mg PO Q6H PRN PRN Reason: Pain, Mild (Pain Scale 1-3) Last Admin: 08/04/23 09:21 Dose: 650 mg Documented By: JOEY Ascorbic Acid (Ascorbic Acid 500 Mg Tablet) 500 mg PO DAILY [facility] Last Admin: 08/04/23 09:21 Dose: 500 mg Documented By: JOEY Aspirin (Aspirin 81 Mg Tab.Chew) 81 mg PO DAILY [facility] Last Admin: 08/04/23 09:21 Dose: 81 mg Documented By: JOEY Atorvastatin Calcium (Atorvastatin Calcium 80 Mg Tablet) 80 mg PO BEDTIME [facility] Last Admin: 08/03/23 20:37 Dose: 80 mg Documented By: FRANCHESCA Carvedilol (Carvedilol 25 Mg Tablet) 25 mg PO BID@0900,1500 [facility]; Protocol Last Admin: 08/04/23 09:21 Dose: 25 mg Documented By: JOEY Dextrose (Dextrose 50 % 25 Gm/50 Ml Syringe) 25 gm IVPUSH Q15M PRN; Protocol PRN Reason: per Hypoglycemia Standing Ord. Last Admin: 08/02/23 06:24 Dose: 25 gm Documented By: MARIBELL Docusate Sodium (Docusate Sodium 100 Mg Capsule) 100 mg PO DAILY PRN PRN Reason: Constipation Ferrous Sulfate (Ferrous Sulfate 324 Mg Tablet.Dr) 324 mg PO DAILY [facility] Last Admin: 08/04/23 09:21 Dose: 324 mg Documented By: JOEY Fluoxetine HCl (Fluoxetine Hcl 20 Mg Capsule) 40 mg PO DAILY [facility] Last Admin: 08/04/23 09:21 Dose: 40 mg Documented By: JOEY Furosemide (Furosemide 40 Mg/4 Ml Vial) 40 mg IVPUSH BID@0900,1800 [facility]; Protocol Last Admin: 08/04/23 09:21 Dose: 40 mg Documented By: JOEY Glucose (Glucose Gel 15 Gm Gel..Gram.) 15 gm PO Q15M PRN; Protocol PRN Reason: per Hypoglycemia Standing Ord. Hydralazine HCl (Hydralazine Hcl 25 Mg Tablet) 25 mg PO BID@0900,1500 [facility]; Protocol Last Admin: 08/04/23 09:21 Dose: 25 mg Documented By: JOEY Vancomycin HCl 500 mg/ Sodium (Chloride) 110 mls @ 110 mls/hr IV Q24H [facility] Last Infusion: 08/03/23 20:38 Dose: Infused Documented By: FRANCHESCA Cefepime HCl 0.5 gm/ Sodium (Chloride) 50 mls @ 100 mls/hr IV Q24H [facility] Last Infusion: 08/03/23 13:39 Dose: Infused Documented By: ESMER Insulin Glargine (Insulin Glargine,Hum.Rec.Anlog 100 Unit/Ml 10 Ml Vial) 25 unit SUBCUT BEDTIME [facility] Last Admin: 08/03/23 20:38 Dose: 25 unit Documented By: FRANCHESCA Insulin Human Lispro (Insulin Lispro 100 Unit/Ml 3 Ml Vial) 0 unit SUBCUT QIDACHS [facility]; Protocol Last Admin: 08/04/23 09:15 Dose: Not Given Documented By: JOEY Non-Admin Reason: No Insulin Coverage Lisinopril (Lisinopril 20 Mg Tablet) 20 mg PO DAILY [facility]; Protocol Loratadine (Loratadine 10 Mg Tablet) 10 mg PO DAILY [facility] Last Admin: 08/04/23 09:21 Dose: 10 mg Documented By: JOEY Multivitamins/Vitamin C (Multivitamin Tablet) 1 tab PO DAILY [facility] Last Admin: 08/04/23 09:21 Dose: 1 tab Documented By: JOEY Ondansetron HCl (Ondansetron Hcl 4 Mg/2 Ml Vial) 4 mg IVPUSH Q8H PRN PRN Reason: Nausea and Vomiting Pharmacy Consult (Consult Rx Vancomycin Dosing) 1 each MISCELLANE DAILY [facility] Sodium Chloride (0.9 % Sodium Chloride Flush 3 Ml Syringe) 3 ml IVFLUSH QSHIFT [facility] Last Admin: 08/04/23 09:21 Dose: 3 ml Documented By: JOEY Labs 08/04/23 05:58 08/04/23 05:58 Labs: Laboratory Results - last 24 hr 08/01/23 08/03/23 08/03/23 18:29 06:31 11:28 MCV MCH MCHC RDW Plt Count MPV Absolute Nucleated RBC Nucleated RBC % (auto) Anion Gap Estim Creat Clear Calc Estimated GFR POC Glucose 144 H Random Glucose Calcium Magnesium B-Natriuretic Peptide 655 H Stool Occult Blood Blood Type O Positive Antibody Screen NEGATIVE Crossmatch See Detail 08/03/23 08/03/23 08/03/23 16:12 20:20 21:15 MCV MCH MCHC RDW Plt Count MPV Absolute Nucleated RBC Nucleated RBC % (auto) Anion Gap Estim Creat Clear Calc Estimated GFR POC Glucose 180 H 189 H Random Glucose Calcium Magnesium B-Natriuretic Peptide Stool Occult Blood POSITIVE Blood Type Antibody Screen Crossmatch 08/04/23 08/04/23 05:58 07:21 MCV 95.1 MCH 29.0 MCHC 30.5 L RDW 15.3 Plt Count 463 H MPV 10.0 Absolute Nucleated RBC 0.030 H Nucleated RBC % (auto) 0.2 Anion Gap 19 Estim Creat Clear Calc 21.4 Estimated GFR 16 POC Glucose 117 H Random Glucose 125 H Calcium 8.4 Magnesium 2.2 B-Natriuretic Peptide 669 H Stool Occult Blood Blood Type Antibody Screen Crossmatch Microbiology Microbiology Results: Microbiology 08/01/23 16:31 Blood Culture - Preliminary Blood - Venous No growth after 48 hours. 08/01/23 14:15 Blood Culture - Preliminary Blood - Venous No growth after 48 hours. Assessment and Plan (1) Atrial flutter: Status: Acute (2) Community acquired pneumonia: Status: Acute Plan d4 68yo F with HFpEF, CKD3, DM2, HTN, AMY on CPAP, chronic hypoxic resp failure on 2L home O2 presenting with 1wk of worsening dyspnea after URI symptoms found to be septic from multifocal pneumonia, also with CHF exacerbation + new-onset atrial flutter/RVR sepsis with acute/chronic hypoxic respiratory failure due to CAP - MRSA swab positive, on d3 vancomycin + cefepime, follow BCx + Legionella/pneumococcal UAGs, trend PCT - weaned O2 to home dose of 2L new-onset atrial flutter/RVR - continue carvedilol for rate control - hold off on further anticoagulation until GI bleeding is addressed - continue cardiac monitoring - Cardiology consulted - treat CAP as above anemia of CKD3 with occult blood positive stool - transfused 1u PRBCs 08/03/23; will consult GI and give PPI acute/chronic HFpEF - continue IV furosemide, monitor electrolytes/I+O/BNP PACHECO/CKD3 - Cr improved to baseline DM2 - basal-bolus insulin [reduced Lantus dose due to hypoglycemia] HTN - hydralazine, carvedilol, lisinopril HLD - atorvastatin AMY - CPAP at night mood disorder - fluoxetine VTE ppx - SCDs dispo - TBD; PT eval In my clinical judgment, the patient requires continued inpatient hospitalization for the following reasons: IV ABX, IV diuresis, transfusion Time Spent With Patient Time: Total time managing care of this patient today _45___ minutes. Quality Stroke Does the patient have a stroke diagnosis?: No VTE Prior VTE?: No VTE Risk Level:: Medical - moderate - high VTE Device Contraindication: Treatment Not Indicated VTE Drug Contraindication: N/A - Med Ordered
[2023-08-04] MEDS: cefEPime HCl 0.5 GM in 0.9 % Sodium Chloride 50 ML IV (11:29)
[2023-08-04] MEDS: Pantoprazole Sodium 40 MG/10 ML VIAL IVPUSH ×2 (11:30→17:06)
[2023-08-04] MEDS: Insulin Lispro 100 UNIT/ML 3 ML VIAL SUBCUT ×3 (11:39→21:20)
[2023-08-04 11:44] LABS: Glucose, Whole Blood 153 mg/dL (60-115)
--- NOTE | 2023-08-04 11:49 | P.CNGI_ITS ---
History of Present Illness Data of Consult Service Date: 08/04/23 Requesting physician: Ervin Pryor Primary Care Provider: Sadi Harden MD HPI Reason for consult: Anemia, heme-positive stools 68 YF with HFpEF, CKD 3, insulin-dependent diabetes type 2, HLD, HTN, AMY on CPAP at bedtime, and chronically on 2L O2 at home admitted to [facility] on 08/01/23 with septis from multifocal pneumonia, CHF exacerbation + new-onset atrial flutter/RVR. Patient reports URI like symptoms a week ago followed by increased shortness of breath, pulmonary congestion, and cough occasionally productive of yellowish sputum. GI consulted for evaluation of acute on chronic anemia with heme-positive stools. Pt reports she has chronic anemia for the past several years and has been taking oral iron supplements for greater than 5 yrs She denies any abdominal pain, dysphagia, nausea, vomiting, or recent change in bowel habits. She reports intermittent heartburn and black stools due to oral iron and denies rectal bleeding. Pt admits to grazing during the day resulting in weight gain. She reports decreased p.o. intake since she has not been feeling well. Pt recalls she had a colonoscopy ? at age 53 (at [facility] or [facility]) which was negative. She is unsure if she had an EGD in the past. Pt smoked in the remote past and takes ETOH occasionally She has been on Home 02 since May, 2021. Patient has severe sleep apnea and uses a CPAP machine at home. She takes a baby aspirin daily. 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 Patient lives with her son and [id number]. In the ED labs were significant for leukocytosis of 22.0, H&H of 7.9/25.1, BUN 54, creatinine 3.09, AST 56, ALT 65, alk-phos 169, initial troponin 26.5, BNP 1409, Patient tested negative for influenza type a and B, our SV, and COVID. Echocardiogram on 07/15/2023 showed normal LVEF of 60-65% with mildly dilated left atrium, [id number] aortic stenosis, and mildly dilated ascending aorta of 3.7 cm. EKG demonstrated atrial flutter with nonspecific ST and T-wave abnormalities. Pt was treated with Lasix 40 mg IV, cefepime, vancomycin, and half liter of IVF and admitted for treatment of acute hypoxic respiratory failure in the setting of new onset a flutter with RVR, HFpEF exacerbation, and multifocal pneumonia. Pt reports she is feeling bettter. 08/03/23 H & H was 7.7 & 25.2 and improved to 8.3 & 27.2 today after she was transfused 1 U PRBC. 08/01/23 CHEST XRAY SHOWED: New multifocal airspace opacities concerning for an atypical pneumonia. Recommend a follow-up examination after treatment to ensure adequate resolution. 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 CAP (community acquired pneumonia) Morbid (severe) obesity due to excess calories Chronic renal failure Secondary aldosteronism Acute renal failure Nocturnal hypoxemia Diabetes type 2, controlled HTN (hypertension) Morbid obesity due to excess calories AMY (obstructive sleep apnea) Pneumonia Obesity Elevated creatine kinase Congestive heart failure High cholesterol Diabetes type 2, uncontrolled Family History Family History Father Stroke Mother Stroke Hypertension Diabetes Maternal Grandmother Diabetes Hypertension Stroke Sister Diabetes Breast cancer Son Bipolar 1 disorder Overweight Other Mental health problem Substance abuse Surgical History Surgical History History of surgery History of D&C Social History Social History Household Members: Children Housing: House Do you presently have visiting nurse or other home services: No Unable to assess alcohol history related to: Unable to respond Alcohol intake: current Alcohol intake frequency: holidays/special occasions only Patient Tobacco Use Status: Former Tobacco user e-Cigarette/Vaping Use: Never Used Second Hand Smoke Exposure: No Advance Directives: Yes Advance Directives on File: Yes Advance Directives Date on File: 06/09/21 Do you have a plan to hurt others: No Plan service: No Current occupational status: retired Cognitive needs: No Hearing needs: No Vision needs: Yes Meds Allergies Allergy/AdvReac Type Severity Reaction Status Date / Time penicillin V Allergy Severe joint Verified 04/17/24 14:32 swelling and rash amlodipine [From [facility]] AdvReac Intermediate edema Verified 04/17/24 14:32 Active Medications: Current Medications Acetaminophen (Acetaminophen 325 Mg Tablet) 650 mg PO Q6H PRN PRN Reason: Pain, Mild (Pain Scale 1-3) Last Admin: 08/04/23 09:21 Dose: 650 mg Ascorbic Acid (Ascorbic Acid 500 Mg Tablet) 500 mg PO DAILY [facility] Last Admin: 08/04/23 09:21 Dose: 500 mg Aspirin (Aspirin 81 Mg Tab.Chew) 81 mg PO DAILY [facility] Last Admin: 08/04/23 09:21 Dose: 81 mg Atorvastatin Calcium (Atorvastatin Calcium 80 Mg Tablet) 80 mg PO BEDTIME [facility] Last Admin: 08/03/23 20:37 Dose: 80 mg Carvedilol (Carvedilol 25 Mg Tablet) 25 mg PO BID@0900,1500 [facility]; Protocol Last Admin: 08/04/23 09:21 Dose: 25 mg Dextrose (Dextrose 50 % 25 Gm/50 Ml Syringe) 25 gm IVPUSH Q15M PRN; Protocol PRN Reason: per Hypoglycemia Standing Ord. Last Admin: 08/02/23 06:24 Dose: 25 gm Docusate Sodium (Docusate Sodium 100 Mg Capsule) 100 mg PO DAILY PRN PRN Reason: Constipation Ferrous Sulfate (Ferrous Sulfate 324 Mg Tablet.Dr) 324 mg PO DAILY [facility] Last Admin: 08/04/23 09:21 Dose: 324 mg Fluoxetine HCl (Fluoxetine Hcl 20 Mg Capsule) 40 mg PO DAILY [facility] Last Admin: 08/04/23 09:21 Dose: 40 mg Furosemide (Furosemide 40 Mg/4 Ml Vial) 40 mg IVPUSH BID@0900,1800 [facility]; Protocol Last Admin: 08/04/23 09:21 Dose: 40 mg Glucose (Glucose Gel 15 Gm Gel..Gram.) 15 gm PO Q15M PRN; Protocol PRN Reason: per Hypoglycemia Standing Ord. Hydralazine HCl (Hydralazine Hcl 25 Mg Tablet) 25 mg PO BID@0900,1500 [facility]; Protocol Last Admin: 08/04/23 09:21 Dose: 25 mg Vancomycin HCl 500 mg/ Sodium (Chloride) 110 mls @ 110 mls/hr IV Q24H [facility] Last Infusion: 08/03/23 20:38 Dose: Infused Cefepime HCl 0.5 gm/ Sodium (Chloride) 50 mls @ 100 mls/hr IV Q24H [facility] Last Admin: 08/04/23 11:29 Dose: 100 mls/hr Insulin Glargine (Insulin Glargine,Hum.Rec.Anlog 100 Unit/Ml 10 Ml Vial) 25 unit SUBCUT BEDTIME [facility] Last Admin: 08/03/23 20:38 Dose: 25 unit Insulin Human Lispro (Insulin Lispro 100 Unit/Ml 3 Ml Vial) 0 unit SUBCUT QIDACHS [facility]; Protocol Last Admin: 08/04/23 11:39 Dose: 2 unit Lisinopril (Lisinopril 20 Mg Tablet) 20 mg PO DAILY [facility]; Protocol Loratadine (Loratadine 10 Mg Tablet) 10 mg PO DAILY [facility] Last Admin: 08/04/23 09:21 Dose: 10 mg Multivitamins/Vitamin C (Multivitamin Tablet) 1 tab PO DAILY [facility] Last Admin: 08/04/23 09:21 Dose: 1 tab Ondansetron HCl (Ondansetron Hcl 4 Mg/2 Ml Vial) 4 mg IVPUSH Q8H PRN PRN Reason: Nausea and Vomiting Pantoprazole Sodium (Pantoprazole Sodium 40 Mg/10 Ml Vial) 40 mg IVPUSH BID@0630,1630 [facility] Last Admin: 08/04/23 11:30 Dose: 40 mg Pharmacy Consult (Consult Rx Vancomycin Dosing) 1 each MISCELLANE DAILY [facility] Sodium Chloride (0.9 % Sodium Chloride Flush 3 Ml Syringe) 3 ml IVFLUSH QSHIFT [facility] Last Admin: 08/04/23 09:21 Dose: 3 ml Home Medications ?Medication ?Instructions ?Recorded ?Confirmed ?Last Taken ?Type ascorbic acid (vitamin C) 500 mg 500 mg PO DAILY 09/22/20 03/17/24 08/01/23 History tablet fexofenadine 180 mg tablet 180 mg PO DAILY 09/22/20 03/17/24 08/01/23 History multivitamin 1 tab PO DAILY 09/12/22 03/17/24 08/01/23 History ferrous sulfate 325 mg (65 mg 325 mg PO DAILY 11/27/22 03/17/24 08/01/23 History iron) tablet insulin lispro 100 unit/mL See Rx Instructions subcut QID 08/01/23 03/17/24 08/01/23 History subcutaneous pen sodium polystyrene sulfonate 15 g PO 3XW 08/01/23 03/17/24 07/31/23 History venlafaxine 37.5 mg 37.5 mg PO BID 11/14/23 03/17/24 Unknown History capsule,extended release 24 hr (Effexor XR) venlafaxine 75 mg capsule,extended 75 mg PO DAILY 02/03/24 03/17/24 Unknown History release 24 hr Physical Exam 2 Vital Signs: Vital Signs: Last Vital Signs Temp 97.1 F 08/04/23 11:28 Pulse 60 08/04/23 11:28 Resp 18 08/04/23 11:28 BP 169/74 H 08/04/23 11:28 Pulse Ox 96 08/04/23 11:28 O2 Del Method Nasal Cannula 08/04/23 11:28 O2 Flow Rate 2 08/04/23 11:28 Oxygen Flow Rate 4 08/01/23 13:21 BMI result Body Mass Index 43.9 Const: General: ill appearing chronically Nutritional Appearance: obese Limitations: physical limitations and other limitations (On supplemental oxygen) Cardio: Heart sounds: Murmur heart sound present (2/6/systolic murmur at LSC) GI: Inspection: Yes obesity Palpation (GI): Soft to palpation and nontender Auscultation: normal bowel sounds Extrem: General: Yes pedal edema Results Labs 08/07/23 05:56 08/07/23 05:56 Labs: Short CBC 08/04/23 Range/Units 05:58 WBC 16.6 H (4.8-10.8) X10*3/uL Hgb 8.3 L (12.0-16.0) g/dl Hct 27.2 L (37.0-47.0) % Plt Count 463 H (160-400) X10*3/uL BMP 08/04/23 05:58 Sodium 143 Potassium 4.0 Chloride 110 H Carbon Dioxide 18 L BUN 63 H Creatinine 2.88 H Calcium 8.4 Microbiology Microbiology Results: Microbiology 08/01/23 16:31 Blood - Venous Blood Culture - Preliminary No growth after 48 hours. 08/01/23 14:15 Blood - Venous Blood Culture - Preliminary No growth after 48 hours. Assessment and Plan (1) Anemia: Status: Acute (2) Heme positive stool: Status: Inactive Plan 68 YF with HFpEF, CKD 3, insulin-dependent diabetes type 2, HLD, HTN, AMY on CPAP at bedtime, and chronically on 2L O2 at home admitted to [facility] on 08/01/23 with septis from multifocal pneumonia, CHF exacerbation + new-onset atrial flutter/RVR. GI consulted for evaluation of acute on chronic anemia with heme- positive stools. Pt reports she has chronic anemia for the past several years and has been taking oral iron supplements for greater than 5 yrs Pt recalls she had a colonoscopy ? at age 53 (at [facility] or [facility]) which was negative. She is unsure if she had an EGD in the past. Pt was seen in the GI clinic in 02/2023 and advised a Cologuard test which she has not done yet In the ED labs were significant for H&H of 7.9/25.1, 08/03/23 H & H was 7.7 & 25.2 and improved to 8.3 & 27.2 today after she was transfused 1 U PRBC. Iron studies are suggestive of anemia of chronic disease with ferritin of 4, 244 Normal Vitamin B12 and folate Anemia is likely multifactorial - a combination of anemia of chronic disease with superimposed ANDRY due to Upper or lower GI source Plan is to start anticoagulation after endoscopic workup is completed Elevated LFTs likely due to [place] RECOMMENDATIONS 1. Agree with Iv antiemetics and PPI 2. Pt needs further evaluation with EGD and colonoscopy once her cardiac and pulmonary status is optimized. She will need cardiac and pulmonary clearance for anesthesia. 3. Hepatitis serologies, celiac serologies, AMA added to am labs Time Spent With Patient Time: Total time managing care of this patient today ____ minutes. Procedures Date of Service Date of Service: 04/25/24
--- NOTE | 2023-08-04 12:37 | PM.PNCARD ---
Subjective Subjective Date of Service: 08/04/23 Interval history: Seen examined at bedside. Feeling better since blood transfusion and on diuretics. She had episode of atrial fibrillation yesterday. Physical Exam Vital Signs: Last Vital Signs Temp 97.1 F 08/04/23 11:28 Pulse 60 08/04/23 11:28 Resp 18 08/04/23 11:28 BP 169/74 H 08/04/23 11:28 Pulse Ox 96 08/04/23 11:28 O2 Del Method Nasal Cannula 08/04/23 11:28 O2 Flow Rate 2 08/04/23 11:28 Oxygen Flow Rate 4 08/01/23 13:21 BMI result Body Mass Index 43.9 GENERAL APPEARANCE: in no acute distress, morbid obesity. On supplemental oxygen. NECK: no carotid bruit, no significant jugular venous distention. SKIN: no suspicious lesions, warm and dry. HEART: no murmurs, regular rate and rhythm. LUNGS: clear to auscultation bilaterally. ABDOMEN: soft, nontender. EXTREMITIES: + edema. PERIPHERAL PULSES: equal. NEUROLOGIC: No gross deficits, AAO X 3 Objective Labs and Meds 08/04/23 05:58 08/04/23 05:58 Lab results: Laboratory Results - last 24 hr 08/01/23 08/03/23 08/03/23 18:29 16:12 20:20 WBC RBC Hgb Hct MCV MCH MCHC RDW Plt Count MPV Absolute Nucleated RBC Nucleated RBC % (auto) Sodium Potassium Chloride Carbon Dioxide Anion Gap BUN Creatinine Estim Creat Clear Calc Estimated GFR POC Glucose 180 H 189 H Random Glucose Calcium Magnesium B-Natriuretic Peptide Stool Occult Blood Blood Type O Positive Antibody Screen NEGATIVE Crossmatch See Detail 08/03/23 08/04/23 08/04/23 21:15 05:58 07:21 WBC 16.6 H RBC 2.86 L Hgb 8.3 L Hct 27.2 L MCV 95.1 MCH 29.0 MCHC 30.5 L RDW 15.3 Plt Count 463 H MPV 10.0 Absolute Nucleated RBC 0.030 H Nucleated RBC % (auto) 0.2 Sodium 143 Potassium 4.0 Chloride 110 H Carbon Dioxide 18 L Anion Gap 19 BUN 63 H Creatinine 2.88 H Estim Creat Clear Calc 21.4 Estimated GFR 16 POC Glucose 117 H Random Glucose 125 H Calcium 8.4 Magnesium 2.2 B-Natriuretic Peptide 669 H Stool Occult Blood POSITIVE Blood Type Antibody Screen Crossmatch 08/04/23 11:30 WBC RBC Hgb Hct MCV MCH MCHC RDW Plt Count MPV Absolute Nucleated RBC Nucleated RBC % (auto) Sodium Potassium Chloride Carbon Dioxide Anion Gap BUN Creatinine Estim Creat Clear Calc Estimated GFR POC Glucose 153 H Random Glucose Calcium Magnesium B-Natriuretic Peptide Stool Occult Blood Blood Type Antibody Screen Crossmatch Progress Note: A&P Assessment and plan (1) Atrial flutter: Status: Acute (2) Community acquired pneumonia: Status: Acute (3) Congestive heart failure: Status: Acute Plan Pleasant 68 female with pneumonia, atrial flutter and congestive heart failure. Currently in sinus rhythm but had episode of atrial fibrillation yesterday. She is Hemoccult positive and was anemic and was given blood. Blood pressure is elevated. Increasing lisinopril to 20 mg once a day. Can be transitioned to oral diuretics at this point and can be on 40 mg p.o. b.i.d. going forward. Intermediate risk if she needs any endoscopy. Depending on endoscopy result she can start anticoagulation. Currently not on anticoagulation due to anemia. Thank you for allowing me to participate in the care of your patient. Please feel free to contact me if you have any questions. Time Spent With Patient Time: Total time managing care of this patient today ____ minutes. Progress Note: Quality Stroke Does the patient have a stroke diagnosis?: No Procedures Date of Service Date of Service: 08/04/23
[2023-08-04 16:34] LABS: Vancomycin Random 18.1 mcg/mL (15-20)
--- NOTE | 2023-08-04 16:42 | HE.PHANOTE ---
RE VANCO DOSING RENAL FUNCTION POOR BUT SLOWLY IMPROVING. SCR TODAY 2.88. TROUGH CAME BACK AT 18.1. INSIGHT BELIEVES SHE IS ALMOST AT STEADY STATE WITH ONLY SLIGHT INCREASE (TO ABOUT 18.5) IN LEVEL EXPECTED OVER NEXT 48 HOURS. WILL CONTINUE TO MONITOR DAILY RENAL FUNCTION AND RECHECK LEVEL ON 08/06 @1600.
[2023-08-04 16:53] LABS: Glucose, Whole Blood 229 mg/dL (60-115)
[2023-08-04] MEDS: vancomycin HCL 500 MG in 0.9 % Sodium Chloride 100 ML 110 MG IV (17:06)
[2023-08-04 20:21] LABS: Glucose, Whole Blood 195 mg/dL (60-115)
[2023-08-04] MEDS: Atorvastatin Calcium 80 MG TABLET PO (20:47)
[2023-08-04] MEDS: Insulin Glargine,Hum.rec.anlog 100 UNIT/ML 10 ML VIAL 25 UNIT SUBCUT (20:47)
[2023-08-04] MEDS: Benzonatate 100 MG CAPSULE 200 MG PO (20:51)
[2023-08-05] MEDS: Acetaminophen 325 MG TABLET 650 MG PO ×2 (01:46→13:23)
[2023-08-05 03:35] VITALS: BP 145/89; PULSE 89; RESP 18; TEMP 37; O2SAT 98
[2023-08-05] MEDS: Pantoprazole Sodium 40 MG/10 ML VIAL IVPUSH ×2 (05:17→16:50)
[2023-08-05 07:32] VITALS: BP 157/62; PULSE 60; RESP 18; TEMP 36.5; O2SAT 96
[2023-08-05 07:49] LABS: Glucose, Whole Blood 139 mg/dL (60-115)
[2023-08-05 08:07] LABS: Hematocrit 28.2 % (37.0-47.0); Hemoglobin 8.6 g/dl (12.0-16.0); Mean Corpuscular HGB Conc 30.5 g/dl (31.0-35.0); Mean Corpuscular Hemoglobin 28.4 pg (27.0-33.0); Mean Corpuscular Volume 93.1 fL (80.0-98.0); Mean Platelet Volume 9.8 fL (9.4-12.3); Platelet Count 482 X10*3/uL (160-400); Red Blood Count 3.03 X10*6/uL (4.20-5.50); Red Cell Distribution Width 15.3 % (11.0-16.0); White Blood Count 15.5 X10*3/uL (4.8-10.8)
[2023-08-05 08:26] LABS: B Type Natriuretic Peptide 387 pg/mL (<100)
[2023-08-05 08:55] LABS: HBS Num1 0.29 mIU/mL (0-7.99); HBc Num1 0.19 S/CO (0.00-0.79); HBsAGNum1 0.27 S/CO (0.00-0.99); Hepatitis B Core Antibody Nonreactive (Nonreactive); Hepatitis B Surface Antigen Negative (Negative); ~HepC Num1 0.06 S/CO (0.00-0.79); ~Hepatitis B Surface Antibody NONREACTIVE (Nonreactive); ~Hepatitis C Antibody Nonreactive (Nonreactive)
[2023-08-05 09:00] LABS: Anion Gap 17 (12-20); Blood Urea Nitrogen 64 mg/dL (9-16); Calcium 8.4 mg/dL (8.4-10.2); Carbon Dioxide 20 mmol/L (22-29); Chloride 108 mmol/L (96-108); Creatinine Clr Calc Pharmacy 20.9; Estimated Glomerular Filt Rate 16; Glucose Random 148 mg/dL (60-115); Magnesium 2.1 mg/dL (1.6-2.6); Potassium 3.7 mmol/L (3.3-5.1); Sodium 141 mmol/L (135-145)
[2023-08-05 09:15] LABS: Procalcitonin 0.22 ng/mL
[2023-08-05] MEDS: Multivitamin TABLET 1 TAB PO (09:42)
[2023-08-05] MEDS: FLUoxetine HCl 20 MG CAPSULE 40 MG PO (09:42)
[2023-08-05] MEDS: carvediloL 25 MG TABLET PO ×2 (09:42→15:33)
[2023-08-05] MEDS: Furosemide 40 MG TABLET PO ×2 (09:42→16:50)
[2023-08-05] MEDS: Ferrous Sulfate 324 MG TABLET.DR PO (09:42)
[2023-08-05] MEDS: hydrALAZINE HCl 25 MG TABLET PO ×2 (09:43→15:33)
[2023-08-05] MEDS: Ascorbic Acid 500 MG TABLET PO (09:43)
[2023-08-05] MEDS: 0.9 % Sodium Chloride Flush 3 ML SYRINGE IVFLUSH ×3 (09:43→21:38)
[2023-08-05] MEDS: Loratadine 10 MG TABLET PO (09:43)
[2023-08-05] MEDS: lisinopriL 20 MG TABLET PO (10:57)
[2023-08-05 11:22] VITALS: BP 157/62; PULSE 60; O2SAT 96
[2023-08-05 11:29] VITALS: BP 121/59; PULSE 65; RESP 20; TEMP 36.2; O2SAT 96
[2023-08-05 11:35] LABS: Glucose, Whole Blood 234 mg/dL (60-115)
[2023-08-05] MEDS: Insulin Lispro 100 UNIT/ML 3 ML VIAL SUBCUT ×2 (12:19→16:50)
[2023-08-05] MEDS: cefEPime HCl 0.5 GM in 0.9 % Sodium Chloride 50 ML IV (13:03)
--- NOTE | 2023-08-05 13:13 | PM.CNPUL ---
History of Present Illness History of Present Illness Consult date: 08/05/23 Requesting physician: Ervin Pryor Reason for consult: pneumonia and obstructive sleep apnea Chief complaint: HFpED exacerbation, new onset AFlutter w/ rvr Narrative: PULMONARY CONSULTATION : I HAVE SEEN THIS 68 YEARS OLD PLEASANT FEMALE THIS MORNING. History is reviewed, patient examined, imaging and lab results are also reviewed. Pt is a 68-year-old female with a PMH significant for?HFpEF, CKD 3, insulin-dependent diabetes type 2, HLD, HTN, . She has been grossly obese and has obstructive sleep apnea, which is being treated with use of CPAP. She has been a very regular user of CPAP every night.. This patient has restrictive pulmonary disorder due to her gross obesity, also has borderline hypoxemia, and in addition to CPAP at night she uses O2 2 L/minute during the daytime as needed. The patient has been admitted to the hospital with increased shortness of breath, low-grade fever, nasal congestion and some cough. Along with that her O2 sats were decreasing and she had to checkup the oxygen to 4 L/minute. In the ED patient with temperature of 99.7 degrees, tachycardia up to 133, and satting at 98% O2 on 4 L. Labs were significant for leukocytosis of 22.0, H&H of 7.9/25.1, BUN 54, creatinine 3.09, AST 56, ALT 65, alk-phos 169, initial troponin 26.5, BNP 1409, Patient tested negative for influenza type a and B, RSV and COVID. CXR showed new multifocal airspace opacities ,suggesting atypical pneumonia. Echocardiogram on 07/15/2023 showed normal LVEF of 60-65% with mildly dilated left atrium, [id number] aortic stenosis, and mildly dilated ascending aorta of 3.7 cm. EKG demonstrated atrial flutter with nonspecific ST and T-wave abnormalities. Pt has been treated with Lasix 40 mg IV, initially and broad-spectrum antibiotic coverage with cefepime, vancomycin, The patient claims that she is feeling better, but still has mild to moderate residual cough, and still feels weak. She has not ambulated much . O2 has been downgraded to 2 L/minute Since the onset of her upper respiratory symptoms she has not been able to use CPAP at night., and instead started using O2 2 L/minute. Review of Systems Review of Systems: Yes all other systems are reviewed and are negative [facility] Past Medical History Medical History (Updated 08/05/23 @ 17:11 by Олег Morillo MD) MRSA carrier CAP (community acquired pneumonia) Morbid (severe) obesity due to excess calories AMY on CPAP Chronic renal failure Secondary aldosteronism Acute renal failure Nocturnal hypoxemia Morbid obesity Diabetes type 2, controlled HTN (hypertension) Morbid obesity due to excess calories AMY (obstructive sleep apnea) Pneumonia Obesity Elevated creatine kinase Anemia Congestive heart failure Bilateral lower extremity edema High cholesterol Diabetes type 2, uncontrolled Hypertension, essential Family History Family History Father Stroke Mother Stroke Hypertension Diabetes Maternal Grandmother Diabetes Hypertension Stroke Sister Diabetes Breast cancer Son Bipolar 1 disorder Overweight Other Mental health problem Substance abuse Surgical History Surgical History History of surgery History of D&C Social History Social History Household Members: Children Housing: House Do you presently have visiting nurse or other home services: No Unable to assess alcohol history related to: Unable to respond Alcohol intake: never Patient Tobacco Use Status: Never used Tobacco e-Cigarette/Vaping Use: Never Used Second Hand Smoke Exposure: No Advance Directives Date on File: 06/09/21 service: No Current occupational status: employed Cognitive needs: No Hearing needs: No Vision needs: Yes Meds Allergies Allergy/AdvReac Type Severity Reaction Status Date / Time penicillin V Allergy Severe joint Verified 08/01/23 13:25 swelling and rash amlodipine [From [facility]] AdvReac Intermediate edema Verified 08/01/23 13:25 Active Medications: Current Medications Acetaminophen (Acetaminophen 325 Mg Tablet) 650 mg PO Q6H PRN PRN Reason: Pain, Mild (Pain Scale 1-3) Last Admin: 08/05/23 01:46 Dose: 650 mg Ascorbic Acid (Ascorbic Acid 500 Mg Tablet) 500 mg PO DAILY [facility] Last Admin: 08/05/23 09:43 Dose: 500 mg Atorvastatin Calcium (Atorvastatin Calcium 80 Mg Tablet) 80 mg PO BEDTIME [facility] Last Admin: 08/04/23 20:47 Dose: 80 mg Benzonatate (Benzonatate 100 Mg Capsule) 200 mg PO TID PRN PRN Reason: Cough Last Admin: 08/04/23 20:51 Dose: 200 mg Bisacodyl (Bisacodyl 5 Mg Tablet.) 10 mg PO ONCE ONE Stop: 08/06/23 13:01 Carvedilol (Carvedilol 25 Mg Tablet) 25 mg PO BID@0900,1500 [facility]; Protocol Last Admin: 08/05/23 09:42 Dose: 25 mg Dextrose (Dextrose 50 % 25 Gm/50 Ml Syringe) 25 gm IVPUSH Q15M PRN; Protocol PRN Reason: per Hypoglycemia Standing Ord. Last Admin: 08/02/23 06:24 Dose: 25 gm Docusate Sodium (Docusate Sodium 100 Mg Capsule) 100 mg PO DAILY PRN PRN Reason: Constipation Ferrous Sulfate (Ferrous Sulfate 324 Mg Tablet.) 324 mg PO DAILY [facility] Last Admin: 08/05/23 09:42 Dose: 324 mg Fluoxetine HCl (Fluoxetine Hcl 20 Mg Capsule) 40 mg PO DAILY [facility] Last Admin: 08/05/23 09:42 Dose: 40 mg Furosemide (Furosemide 40 Mg Tablet) 40 mg PO BID@0900,1800 [facility]; Protocol Last Admin: 08/05/23 09:42 Dose: 40 mg Glucose (Glucose Gel 15 Gm Gel..Gram.) 15 gm PO Q15M PRN; Protocol PRN Reason: per Hypoglycemia Standing Ord. Hydralazine HCl (Hydralazine Hcl 25 Mg Tablet) 25 mg PO BID@0900,1500 [facility]; Protocol Last Admin: 08/05/23 09:43 Dose: 25 mg Vancomycin HCl 500 mg/ Sodium (Chloride) 110 mls @ 110 mls/hr IV Q24H [facility] Last Infusion: 08/04/23 18:47 Dose: Infused Cefepime HCl 0.5 gm/ Sodium (Chloride) 50 mls @ 100 mls/hr IV Q24H [facility] Last Admin: 08/05/23 13:03 Dose: 100 mls/hr Insulin Glargine (Insulin Glargine,Hum.Rec.Anlog 100 Unit/Ml 10 Ml Vial) 25 unit SUBCUT BEDTIME [facility] Last Admin: 08/04/23 20:47 Dose: 25 unit Insulin Human Lispro (Insulin Lispro 100 Unit/Ml 3 Ml Vial) 0 unit SUBCUT QIDACHS [facility]; Protocol Last Admin: 08/05/23 12:19 Dose: 4 unit Lisinopril (Lisinopril 20 Mg Tablet) 20 mg PO DAILY [facility]; Protocol Last Admin: 08/05/23 10:57 Dose: 20 mg Loratadine (Loratadine 10 Mg Tablet) 10 mg PO DAILY [facility] Last Admin: 08/05/23 09:43 Dose: 10 mg Multivitamins/Vitamin C (Multivitamin Tablet) 1 tab PO DAILY [facility] Last Admin: 08/05/23 09:42 Dose: 1 tab Ondansetron HCl (Ondansetron Hcl 4 Mg/2 Ml Vial) 4 mg IVPUSH Q8H PRN PRN Reason: Nausea and Vomiting Pantoprazole Sodium (Pantoprazole Sodium 40 Mg/10 Ml Vial) 40 mg IVPUSH BID@0630,1630 [facility] Last Admin: 08/05/23 05:17 Dose: 40 mg Pharmacy Consult (Consult Rx Vancomycin Dosing) 1 each MISCELLANE DAILY [facility] Polyethylene Glycol/Electrolytes (Peg 3350/Na Sulf,Bicarb,Cl/Kcl 4,000 Ml Soln.Recon) 4,000 ml PO ONCE@1400 [facility] Sodium Chloride (0.9 % Sodium Chloride Flush 3 Ml Syringe) 3 ml IVFLUSH QSHIFT [facility] Last Admin: 08/05/23 09:43 Dose: 3 ml Home Medications Medication Instructions Recorded Confirmed Last Taken Type ascorbic acid (vitamin C) 500 mg 500 mg PO DAILY 09/22/20 08/01/23 08/01/23 History tablet fexofenadine 180 mg tablet 180 mg PO DAILY 09/22/20 08/01/23 08/01/23 History multivitamin 1 tab PO DAILY 09/12/22 08/01/23 08/01/23 History cholecalciferol (vitamin D3) 1,250 1,250 mcg PO PISANO@0900 11/27/22 08/01/23 07/28/23 History mcg (50,000 unit) capsule ferrous sulfate 325 mg (65 mg 325 mg PO DAILY 11/27/22 08/01/23 08/01/23 History iron) tablet atorvastatin 80 mg tablet 80 mg PO BEDTIME 08/01/23 08/01/23 07/31/23 History carvedilol 25 mg tablet 25 mg PO BID@0900,1500 08/01/23 08/01/23 08/01/23 History fluoxetine 20 mg capsule 40 mg PO DAILY 08/01/23 08/01/23 08/01/23 History hydralazine 25 mg tablet 25 mg PO BID@0900,1500 08/01/23 08/01/23 08/01/23 History insulin lispro 100 unit/mL See Rx Instructions subcut QID 08/01/23 08/01/23 08/01/23 History subcutaneous pen sodium polystyrene sulfonate 15 g PO 3XW 08/01/23 08/01/23 07/31/23 History Physical Exam Vital Signs: Vital Signs: Last Vital Signs Temp 97.2 F 08/05/23 11:29 Pulse 65 08/05/23 11:29 Resp 20 08/05/23 11:29 BP 121/59 L 08/05/23 11:29 Pulse Ox 96 08/05/23 11:29 O2 Del Method Nasal Cannula 08/05/23 11:29 O2 Flow Rate 2 08/05/23 11:29 Oxygen Flow Rate 4 08/01/23 13:21 BMI result Body Mass Index 43.9 Const: Other: Patient is a morbidly obese with a round face, short and obese neck. .Physical features typical for obstructive sleep apnea General: comfortable, no acute distress, alert and awake Orientation/consciousness: patient oriented x3 HEENT: Head: Yes normal to inspection General nose exam: No nasal polyps present and No nasal discharge present Face and sinus: Yes sinuses nontender Mouth: oropharynx abnormals (Very narrow and crowded oropharynx) Throat: Yes posterior oropharynx normal Eyes: General: appearance normal, both eyes and all related structures Neck: Neck: Yes normal visual inspection, Yes no lymphadenopathy, Yes trachea midline and Yes no JVD Thyroid: Thyroid normal Chest: Chest palpation & inspection: normal inspection of the chest, normal palpation of entire chest wall and no tenderness Resp: Other: Percussion note is not perceptible because of thick chest wall. Breath sounds are generally diminished especially over the basilar areas. There are fine inspiratory creps over the right and left mid chest. Cardio: Palpation: PMI not normal (Not palpable) Rate: regular rate Rhythm: regular rhythm Heart sounds: no gallops and no murmurs GI: Palpation (GI): Soft to palpation, nontender, No hepatosplenomegaly present and no masses Auscultation: normal bowel sounds Back/Spine/Pelvis: Other: Not examine Thoracic/Lumbar Spine: thoracic and lumbar spine normal to inspection Skin: General skin exam: no rashes or lesions noted Neuro: General: patient oriented x3 and no focal motor deficits Cranial nerves: Yes CN's II-XII intact bilaterally Extrem: General: Yes normal to inspection, Yes no clubbing, cyanosis or edema and Yes no calf tenderness Psych: Speech and movement: Normal speech and movement present Results Laboratory Findings 08/05/23 07:12 08/05/23 07:13 Abnormal lab findings: Abnormal Labs 08/01/23 08/01/23 08/01/23 14:15 18:29 18:31 WBC 22.0 H RBC 2.75 L D Hgb 7.9 L D Hct 25.1 L D MCHC Plt Count 460 H Absolute Nucleated RBC 0.020 H Neutrophils % (Manual) 92 H Band Neutrophils % 2 L Lymphocytes % (Manual) 4 L Abs Neuts (Manual) 20.7 H Lymphocytes # (Manual) 0.9 L Nucleated RBCs 1 H Percent Retic Immature Retic Fraction Retic Hgb Equivalent Chloride 110 H Carbon Dioxide 19 L BUN 54 H Creatinine 3.09 H POC Glucose Random Glucose Iron TIBC Ferritin AST 56 H ALT 65 H Alkaline Phosphatase 169 H Lactate Dehydrogenase Troponin I High Sens 26.5 H B-Natriuretic Peptide 1409 H Albumin 2.8 L Nasal S. aureus Screen POSITIVE A Crossmatch See Detail 08/02/23 08/02/23 08/02/23 05:39 06:44 07:01 WBC 26.8 H RBC 2.58 L Hgb 7.5 L Hct 24.0 L MCHC Plt Count 413 H Absolute Nucleated RBC 0.020 H Neutrophils % (Manual) Band Neutrophils % Lymphocytes % (Manual) Abs Neuts (Manual) Lymphocytes # (Manual) Nucleated RBCs Percent Retic Immature Retic Fraction Retic Hgb Equivalent Chloride 112 H Carbon Dioxide 18 L BUN 55 H Creatinine 3.11 H POC Glucose 139 H 121 H Random Glucose 52 L* Iron TIBC Ferritin AST ALT Alkaline Phosphatase Lactate Dehydrogenase Troponin I High Sens B-Natriuretic Peptide Albumin Nasal S. aureus Screen Crossmatch 08/02/23 08/02/23 08/02/23 07:15 11:39 16:58 WBC RBC Hgb Hct MCHC Plt Count Absolute Nucleated RBC Neutrophils % (Manual) Band Neutrophils % Lymphocytes % (Manual) Abs Neuts (Manual) Lymphocytes # (Manual) Nucleated RBCs Percent Retic Immature Retic Fraction Retic Hgb Equivalent Chloride Carbon Dioxide BUN Creatinine POC Glucose 121 H 127 H 154 H Random Glucose Iron TIBC Ferritin AST ALT Alkaline Phosphatase Lactate Dehydrogenase Troponin I High Sens B-Natriuretic Peptide Albumin Nasal S. aureus Screen Crossmatch 08/02/23 08/03/23 08/03/23 21:22 06:31 11:28 WBC 20.6 H RBC 2.70 L Hgb 7.7 L Hct 25.2 L MCHC 30.6 L Plt Count 447 H Absolute Nucleated RBC 0.020 H Neutrophils % (Manual) Band Neutrophils % Lymphocytes % (Manual) Abs Neuts (Manual) Lymphocytes # (Manual) Nucleated RBCs Percent Retic 2.3 H Immature Retic Fraction 31.0 H Retic Hgb Equivalent 24.4 L Chloride 112 H Carbon Dioxide 18 L BUN 60 H Creatinine 3.16 H POC Glucose 129 H 144 H Random Glucose 117 H Iron 17 L TIBC 90 L Ferritin 4244 H AST ALT Alkaline Phosphatase Lactate Dehydrogenase 324 H Troponin I High Sens B-Natriuretic Peptide 655 H Albumin Nasal S. aureus Screen Crossmatch 08/03/23 08/03/23 08/04/23 16:12 20:20 05:58 WBC 16.6 H RBC 2.86 L Hgb 8.3 L Hct 27.2 L MCHC 30.5 L Plt Count 463 H Absolute Nucleated RBC 0.030 H Neutrophils % (Manual) Band Neutrophils % Lymphocytes % (Manual) Abs Neuts (Manual) Lymphocytes # (Manual) Nucleated RBCs Percent Retic Immature Retic Fraction Retic Hgb Equivalent Chloride 110 H Carbon Dioxide 18 L BUN 63 H Creatinine 2.88 H POC Glucose 180 H 189 H Random Glucose 125 H Iron TIBC Ferritin AST ALT Alkaline Phosphatase Lactate Dehydrogenase Troponin I High Sens B-Natriuretic Peptide 669 H Albumin Nasal S. aureus Screen Crossmatch 08/04/23 08/04/23 08/04/23 07:21 11:30 16:26 WBC RBC Hgb Hct MCHC Plt Count Absolute Nucleated RBC Neutrophils % (Manual) Band Neutrophils % Lymphocytes % (Manual) Abs Neuts (Manual) Lymphocytes # (Manual) Nucleated RBCs Percent Retic Immature Retic Fraction Retic Hgb Equivalent Chloride Carbon Dioxide BUN Creatinine POC Glucose 117 H 153 H 229 H Random Glucose Iron TIBC Ferritin AST ALT Alkaline Phosphatase Lactate Dehydrogenase Troponin I High Sens B-Natriuretic Peptide Albumin Nasal S. aureus Screen Crossmatch 08/04/23 08/05/23 08/05/23 20:15 07:12 07:13 WBC 15.5 H RBC 3.03 L Hgb 8.6 L Hct 28.2 L MCHC 30.5 L Plt Count 482 H Absolute Nucleated RBC Neutrophils % (Manual) Band Neutrophils % Lymphocytes % (Manual) Abs Neuts (Manual) Lymphocytes # (Manual) Nucleated RBCs Percent Retic Immature Retic Fraction Retic Hgb Equivalent Chloride Carbon Dioxide 20 L BUN 64 H Creatinine 2.95 H POC Glucose 195 H Random Glucose 148 H Iron TIBC Ferritin AST ALT Alkaline Phosphatase Lactate Dehydrogenase Troponin I High Sens B-Natriuretic Peptide 387 H Albumin Nasal S. aureus Screen Crossmatch 08/05/23 08/05/23 07:35 11:28 WBC RBC Hgb Hct MCHC Plt Count Absolute Nucleated RBC Neutrophils % (Manual) Band Neutrophils % Lymphocytes % (Manual) Abs Neuts (Manual) Lymphocytes # (Manual) Nucleated RBCs Percent Retic Immature Retic Fraction Retic Hgb Equivalent Chloride Carbon Dioxide BUN Creatinine POC Glucose 139 H 234 H Random Glucose Iron TIBC Ferritin AST ALT Alkaline Phosphatase Lactate Dehydrogenase Troponin I High Sens B-Natriuretic Peptide Albumin Nasal S. aureus Screen Crossmatch Microbiology: Microbiology 08/01/23 16:31 Blood - Venous Blood Culture - Preliminary No growth after 48 hours. 08/01/23 14:15 Blood - Venous Blood Culture - Preliminary No growth after 48 hours. Diagnostic Findings Chest x-ray: report reviewed and image reviewed Assessment and Plan (1) AMY on CPAP: Status: Acute (2) Obesity: Status: Acute (3) CAP (community acquired pneumonia): Status: Acute (4) MRSA carrier: Status: Acute Plan This patient community-acquired pneumonia, mainly in the right upper and mid lobe , left-sided relatively clear I think she is being treated adequately with antibiotics. Nasal swab Positive for MRSA most likely colonization. The treatment for hisCAP is more than adequate. Should consider stopping vancomycin, and add doxycycline 100 b.i.d. p.o.. Oxygen supplementation as needed. Repeat chest x-ray for follow-up of pneumonia she should she goes home. Will need to be followed closely as outpatient Time Spent With Patient Time: Total time managing care of this patient today ____ minutes. Procedures Date of Service Date of Service: 08/05/23
--- NOTE | 2023-08-05 13:17 | P.PNIM_ITS ---
Subjective Subjective Date of Service: 08/05/23 Interval History: remains in NSR dyspnea improved coughing Review of Systems Review of Systems: Yes all other systems are reviewed and are negative Physical Exam 2 Vital Signs: Vital Signs: Last Vital Signs Temp 97.2 F 08/05/23 11:29 Pulse 65 08/05/23 11:29 Resp 20 08/05/23 11:29 BP 121/59 L 08/05/23 11:29 Pulse Ox 96 08/05/23 11:29 O2 Del Method Nasal Cannula 08/05/23 11:29 O2 Flow Rate 2 08/05/23 11:29 Oxygen Flow Rate 4 08/01/23 13:21 BMI result Body Mass Index 43.9 Gen: in no acute distress HEENT: sclera anicteric, moist mucus membranes Neck: supple Lungs: a few inspiratory crackles Heart: regular, 2/6 systolic murmur at base Abd: soft, non-tender, non-distended Ext: trace bilateral leg edema Skin: warm/well-perfused Neuro: alert and oriented x3, no focal findings Psych: appropriate affect Objective Data Active Medications Acetaminophen (Acetaminophen 325 Mg Tablet) 650 mg PO Q6H PRN PRN Reason: Pain, Mild (Pain Scale 1-3) Last Admin: 08/05/23 01:46 Dose: 650 mg Documented By: VARGAS Ascorbic Acid (Ascorbic Acid 500 Mg Tablet) 500 mg PO DAILY [facility] Last Admin: 08/05/23 09:43 Dose: 500 mg Documented By: ANNCY Atorvastatin Calcium (Atorvastatin Calcium 80 Mg Tablet) 80 mg PO BEDTIME [facility] Last Admin: 08/04/23 20:47 Dose: 80 mg Documented By: VARGAS Benzonatate (Benzonatate 100 Mg Capsule) 200 mg PO TID PRN PRN Reason: Cough Last Admin: 08/04/23 20:51 Dose: 200 mg Documented By: VARGAS Bisacodyl (Bisacodyl 5 Mg Tablet.) 10 mg PO ONCE ONE Stop: 08/06/23 13:01 Carvedilol (Carvedilol 25 Mg Tablet) 25 mg PO BID@0900,1500 [facility]; Protocol Last Admin: 08/05/23 09:42 Dose: 25 mg Documented By: NANCY Dextrose (Dextrose 50 % 25 Gm/50 Ml Syringe) 25 gm IVPUSH Q15M PRN; Protocol PRN Reason: per Hypoglycemia Standing Ord. Last Admin: 08/02/23 06:24 Dose: 25 gm Documented By: MARIBELL Docusate Sodium (Docusate Sodium 100 Mg Capsule) 100 mg PO DAILY PRN PRN Reason: Constipation Ferrous Sulfate (Ferrous Sulfate 324 Mg Tablet.Dr) 324 mg PO DAILY [facility] Last Admin: 08/05/23 09:42 Dose: 324 mg Documented By: NANCY Fluoxetine HCl (Fluoxetine Hcl 20 Mg Capsule) 40 mg PO DAILY [facility] Last Admin: 08/05/23 09:42 Dose: 40 mg Documented By: NANCY Furosemide (Furosemide 40 Mg Tablet) 40 mg PO BID@0900,1800 [facility]; Protocol Last Admin: 08/05/23 09:42 Dose: 40 mg Documented By: NANCY Glucose (Glucose Gel 15 Gm Gel..Gram.) 15 gm PO Q15M PRN; Protocol PRN Reason: per Hypoglycemia Standing Ord. Guaifenesin/Dextromethorphan (Guaifenesin Dm 100/10/5 Ml 5 Ml Syrup) 5 ml PO Q4H PRN PRN Reason: coufgh Hydralazine HCl (Hydralazine Hcl 25 Mg Tablet) 25 mg PO BID@0900,1500 [facility]; Protocol Last Admin: 08/05/23 09:43 Dose: 25 mg Documented By: NANCY Vancomycin HCl 500 mg/ Sodium (Chloride) 110 mls @ 110 mls/hr IV Q24H [facility] Last Infusion: 08/04/23 18:47 Dose: Infused Documented By: JOEY Cefepime HCl 0.5 gm/ Sodium (Chloride) 50 mls @ 100 mls/hr IV Q24H [facility] Last Admin: 08/05/23 13:03 Dose: 100 mls/hr Documented By: JS Insulin Glargine (Insulin Glargine,Hum.Rec.Anlog 100 Unit/Ml 10 Ml Vial) 25 unit SUBCUT BEDTIME [facility] Last Admin: 08/04/23 20:47 Dose: 25 unit Documented By: VARGAS Insulin Human Lispro (Insulin Lispro 100 Unit/Ml 3 Ml Vial) 0 unit SUBCUT QIDACHS [facility]; Protocol Last Admin: 08/05/23 12:19 Dose: 4 unit Documented By: JS Lisinopril (Lisinopril 20 Mg Tablet) 20 mg PO DAILY [facility]; Protocol Last Admin: 08/05/23 10:57 Dose: 20 mg Documented By: JS Loratadine (Loratadine 10 Mg Tablet) 10 mg PO DAILY [facility] Last Admin: 08/05/23 09:43 Dose: 10 mg Documented By: NANCY Multivitamins/Vitamin C (Multivitamin Tablet) 1 tab PO DAILY [facility] Last Admin: 08/05/23 09:42 Dose: 1 tab Documented By: NANCY Ondansetron HCl (Ondansetron Hcl 4 Mg/2 Ml Vial) 4 mg IVPUSH Q8H PRN PRN Reason: Nausea and Vomiting Pantoprazole Sodium (Pantoprazole Sodium 40 Mg/10 Ml Vial) 40 mg IVPUSH BID@0630,1630 [facility] Last Admin: 08/05/23 05:17 Dose: 40 mg Documented By: VARGAS Pharmacy Consult (Consult Rx Vancomycin Dosing) 1 each MISCELLANE DAILY [facility] Polyethylene Glycol/Electrolytes (Peg 3350/Na Sulf,Bicarb,Cl/Kcl 4,000 Ml Soln.Recon) 4,000 ml PO ONCE@1400 [facility] Sodium Chloride (0.9 % Sodium Chloride Flush 3 Ml Syringe) 3 ml IVFLUSH QSHIFT [facility] Last Admin: 08/05/23 09:43 Dose: 3 ml Documented By: NANCY Labs 08/05/23 07:12 08/05/23 07:13 Labs: Laboratory Results - last 24 hr 08/04/23 08/04/23 08/04/23 16:08 16:26 20:15 MCV MCH MCHC RDW Plt Count MPV Absolute Nucleated RBC Nucleated RBC % (auto) Anion Gap Estim Creat Clear Calc Estimated GFR POC Glucose 229 H 195 H Random Glucose Calcium Magnesium B-Natriuretic Peptide Procalcitonin Random Vancomycin 18.1 Hep Bs Antigen Hep Bs Antibody Hep B Core Total Ab Hepatitis C Ab (EIA) 08/05/23 08/05/23 08/05/23 07:12 07:13 07:35 MCV 93.1 MCH 28.4 MCHC 30.5 L RDW 15.3 Plt Count 482 H MPV 9.8 Absolute Nucleated RBC 0.000 Nucleated RBC % (auto) 0.0 Anion Gap 17 Estim Creat Clear Calc 20.9 Estimated GFR 16 POC Glucose 139 H Random Glucose 148 H Calcium 8.4 Magnesium 2.1 B-Natriuretic Peptide 387 H Procalcitonin 0.22 Random Vancomycin Hep Bs Antigen Negative Hep Bs Antibody NONREACTIVE Hep B Core Total Ab Nonreactive Hepatitis C Ab (EIA) Nonreactive 08/05/23 11:28 MCV MCH MCHC RDW Plt Count MPV Absolute Nucleated RBC Nucleated RBC % (auto) Anion Gap Estim Creat Clear Calc Estimated GFR POC Glucose 234 H Random Glucose Calcium Magnesium B-Natriuretic Peptide Procalcitonin Random Vancomycin Hep Bs Antigen Hep Bs Antibody Hep B Core Total Ab Hepatitis C Ab (EIA) Assessment and Plan (1) Atrial flutter: Status: Acute (2) Community acquired pneumonia: Status: Acute Plan d5 68yo F with HFpEF, CKD3, DM2, HTN, AMY on CPAP, chronic hypoxic resp failure on 2L home O2 presenting with 1wk of worsening dyspnea after URI symptoms found to be septic from multifocal pneumonia complicated by CHF exacerbation + new-onset atrial flutter/RVR sepsis with acute/chronic hypoxic respiratory failure due to CAP - MRSA swab positive, vancomycin + cefepime 08/02-, BCx negative, Legionella/pneumococcal UAgs pending - weaned O2 to home dose of 2L new-onset atrial flutter/RVR - continue carvedilol for rate control - hold off on further anticoagulation until GI bleeding is addressed as below - continue cardiac monitoring - Cardiology consulted; TTE as below anemia of CKD3 with occult blood positive stool - transfused 1u PRBCs 08/03/23 - GI consulted, plan EGD + C-scope 08/06/23 acute/chronic HFpEF - switch from IV to PO furosemide - TTE 07/15/23: 1. Normal LV ejection fraction 60 65% with elevated filling pressures 2. Mildly dilated left atrium 3. Gmyz-pu-xgfetrin aortic stenosis 4. Mildly dilated ascending aorta at 3.7 cm 5. No gross pericardial effusion PACHECO/CKD3 - Cr improved DM2 - basal-bolus insulin [reduced Lantus dose due to hypoglycemia] HTN - hydralazine, carvedilol, lisinopril [increased dose from 10 to 20 mg/d] HLD - atorvastatin AMY - CPAP at night mood disorder - fluoxetine VTE ppx - SCDs dispo - plan home with VNA eventually In my clinical judgment, the patient requires continued inpatient hospitalization for the following reasons: IV ABX, IV diuresis, transfusion Time Spent With Patient Time: Total time managing care of this patient today __40__ minutes. Quality Stroke Does the patient have a stroke diagnosis?: No VTE Prior VTE?: No VTE Risk Level:: Medical - moderate - high VTE Device Contraindication: Treatment Not Indicated VTE Drug Contraindication: N/A - Med Ordered
[2023-08-05] MEDS: Benzonatate 100 MG CAPSULE 200 MG PO (13:23)
[2023-08-05] MEDS: guaiFENesin DM 100/10/5 ML 5 ML SYRUP PO (13:23)
--- NOTE | 2023-08-05 15:14 | MHC.CM.PN ---
EMR reviewed. Per MD rounds pt is not medically cleared for DC at this time - ? endoscopy tomorrow. PT recommending home with services. However, patient is declining any home services at this time, has strong family support from son and daughter in law. Patient states she may consider requesting an outpt PT referral from PCP after discharge and is able to drive herself or have her son transport to appts. CM will continue to follow.
[2023-08-05 15:32] VITALS: BP 137/58; PULSE 64; RESP 18; TEMP 36.6; O2SAT 98
[2023-08-05] MEDS: Docusate Sodium 100 MG CAPSULE PO (15:33)
[2023-08-05] MEDS: PEG 3350/Na Sulf,Bicarb,Cl/KCL 4,000 ML SOLN.RECON 4000 ML PO (15:34)
[2023-08-05 16:38] LABS: Strep Pneumo Ag urine Not Detected (Not Detected)
[2023-08-05 16:51] LABS: Glucose, Whole Blood 205 mg/dL (60-115)
[2023-08-05] MEDS: vancomycin HCL 500 MG in 0.9 % Sodium Chloride 100 ML 110 MG IV (18:10)
[2023-08-05 19:31] VITALS: BP 106/45; PULSE 66; RESP 20; TEMP 36.5; O2SAT 93
[2023-08-05 20:37] LABS: Glucose, Whole Blood 171 mg/dL (60-115)
[2023-08-05] MEDS: Atorvastatin Calcium 80 MG TABLET PO (21:38)
[2023-08-05] MEDS: Insulin Glargine,Hum.rec.anlog 100 UNIT/ML 10 ML VIAL 25 UNIT SUBCUT (21:38)
[2023-08-05] MEDS: ondansetron HCL 4 MG/2 ML VIAL IVPUSH (21:38)
--- NOTE | 2023-08-05 22:12 | PC.RT ---
Pt refusing CPAP at this time
[2023-08-06] VITALS (11 sets, daily range): BP systolic 101–185; BP diastolic 44–77; PULSE 55–78; RESP 16–22; TEMP 36.2–37.2; O2SAT 90–98
[2023-08-06 04:34] LABS: Legionella Ag Urine Not Detected (Not Detected)
[2023-08-06] MEDS: Pantoprazole Sodium 40 MG/10 ML VIAL IVPUSH ×2 (06:39→15:48)
[2023-08-06 07:41] LABS: Glucose, Whole Blood 89 mg/dL (60-115)
[2023-08-06] MEDS: Furosemide 40 MG TABLET PO ×2 (07:44→17:19)
[2023-08-06] MEDS: lisinopriL 20 MG TABLET PO (07:44)
[2023-08-06] MEDS: Ascorbic Acid 500 MG TABLET PO (07:45)
[2023-08-06] MEDS: Ferrous Sulfate 324 MG TABLET.DR PO (07:45)
[2023-08-06] MEDS: FLUoxetine HCl 20 MG CAPSULE 40 MG PO (07:45)
[2023-08-06] MEDS: carvediloL 25 MG TABLET PO ×2 (07:45→15:47)
[2023-08-06] MEDS: hydrALAZINE HCl 25 MG TABLET PO ×2 (07:45→15:47)
[2023-08-06] MEDS: Loratadine 10 MG TABLET PO (07:45)
[2023-08-06] MEDS: Multivitamin TABLET 1 TAB PO (07:45)
[2023-08-06] MEDS: Dextrose 50 % 25 GM/50 ML SYRINGE IVPUSH (07:46)
[2023-08-06] MEDS: 0.9 % Sodium Chloride Flush 3 ML SYRINGE IVFLUSH ×3 (07:46→20:51)
[2023-08-06 09:09] LABS: Creatinine Clr Calc Pharmacy 22.4; Estimated Glomerular Filt Rate 17
[2023-08-06 09:19] LABS: Hematocrit 27.1 % (37.0-47.0); Hemoglobin 8.4 g/dl (12.0-16.0)
[2023-08-06 10:25] LABS: Glucose, Whole Blood 105 mg/dL (60-115)
[2023-08-06] MEDS: cefEPime HCl 0.5 GM in 0.9 % Sodium Chloride 50 ML IV (10:33)
--- NOTE | 2023-08-06 11:31 | P.CDIM_ITS ---
PROVIDER RESPONSE TEXT: To clarify, the appropriate diagnosis supported by the clinical indicators: Obesity Due to other cause: Morbid obesity due to metabolic dysfunction QUERY TEXT: PHYSICIAN'S DOCUMENTATION REQUEST Date of Query: 08/05/2023 08:46 AM EDT Patient Name: Amaris Hook Admit Date: 08/01/2023 Dear Ervin Pryor, A review of the medical record indicates additional documentation may be needed. Please review below and update the documentation accordingly. Clinical Indicators: BMI: 43.9 5FT 2IN 108.862KG If possible, please provide an associated diagnosis related to the abnormal BMI, such as: Overweight Obesity Due to excess calories Obesity Due to other cause Specify the other cause Severe or Morbid Obesity With alveolar hypoventilation Severe or Morbid Obesity Without alveolar hypoventilation Other (explain)Clinically unable to determine (explain)Thank you, Saadia Escamilla, CCS, CDIS Use of terms such as suspected, likely, concern for, or probable (associated with a specific diagnosi s that is being evaluated, monitored, or treated as if it exists) are acceptable and can be coded in the inpatient se tting, when documented at the time of discharge. Please use your independent medical judgment in providing your response. THIS QUERY IS PART OF THE PERMANENT MEDICAL RECORD
--- NOTE | 2023-08-06 11:31 | P.CDIM_ITS ---
PROVIDER RESPONSE TEXT: To clarify, the appropriate diagnosis supported by the clinical indicators: Acute on chronic Iron deficiency anemia 2nd to blood loss QUERY TEXT: PHYSICIAN'S DOCUMENTATION REQUEST Date of Query: 08/05/2023 09:00 AM EDT Patient Name: Amaris Hook Admit Date: 08/01/2023 Dear Ervin Pryor, A review of the medical record indicates additional documentation may be needed. Please review below and update the documentation accordingly. Clinical Indicators: GI 08/04 - Anemia likely multifactorial combination of anemia of chronic disease superimposed on ANDRY due to upper and lower GI source. HCT 7.5 HCT 24.0 BP 137/57 L Transfused 1 unit PRBC/occult blood in stool Hold off on further anticoagulation until GI bleeding is addressed. Based on the above, could you clarify which of the following is the most likely type of anemia you ar e evaluating, treating, and/or monitoring? Chronic Iron deficiency anemia 2nd to chronic blood loss Acute on chronic Iron deficiency anemia 2nd to blood loss Other Other (explain)Clinically unable to determine (explain)Thank you, Saadia Escamilla, CCS, CDIS Use of terms such as suspected, likely, concern for, or probable (associated with a specific diagnosi s that is being evaluated, monitored, or treated as if it exists) are acceptable and can be coded in the inpatient se tting, when documented at the time of discharge. Please use your independent medical judgment in providing your response. THIS QUERY IS PART OF THE PERMANENT MEDICAL RECORD
[2023-08-06 11:39] LABS: Glucose, Whole Blood 98 mg/dL (60-115)
--- NOTE | 2023-08-06 11:54 | P.F2F_ITS ---
Service Date Service Date: 08/06/23 Encounter Date of encounter: 08/06/23 Reasons for Services Signs and symptoms assessed: Gross Deconditioning, Impaired Bed Mobility, Impaired Gait Pattern, Impaired Safety ,Impaired Standing Balance, Impaired Transfer Ability,Muscle Weakness Reason for senior living: medication management, medication treatment and teach disease management Reason for physical therapy: home safety and mobility, therapeutic exercises, gait/transfer training, assess need for DME, ADL training and energy conservation MD Overseeing Care: Sadi Harden Homebound: Leaving the home is medically contraindicated at this time without the asist of a device and/or another person due th the listed conditions above and below. Reason homebound: unsteady gait / fall risk and weakness related to hospital stay Homebound supporting statement: Bed Mobility, Transfer Training,Gait Training,Stair Training, Therapeutic Activities, Therapeutic Exercise,Neuro Re-education, Patient Education, Safety,Balance Certification: Based on the above findings, I certify that this patient is confined to the home and needs intermittent senior living care, physical therapy and/or speech therapy, or continues to need occupational therapy. The patient is under my care, and I have initiated the establishment of the plan of care. The patient will be followed by a physician who will periodically review the plan of care. Time Spent With Patient Time: Total time managing care of this patient today ____ minutes.
--- NOTE | 2023-08-06 12:17 | P.DS_ITS ---
DS: Providers Provider Date of Service: 08/06/23 Date of admission: 08/01/23 17:23 Date of discharge: 08/06/23 Primary care physician: Sadi Harden MD Consults: 08/01/23 17:28 Consult to Cardiology Routine Consulting Provider: [facility] [place] [facility] Reason for consultation: New onset Aflutter with RVR, HFpEF exacerbation 08/04/23 07:42 Consult to Gastroenterology Routine Consulting Provider: [facility] [place] G[facility]ology [facility] Reason for consultation: Anemia, FOBT+ 08/05/23 07:48 Consult to Pulmonology Routine Consulting Provider: [facility] [place] Pul[facility] Reason for consultation: Pulm eval req by anesthesia pre-EGD DS: Diagnosis Discharge Diagnosis (1) Obesity: Status: Acute (2) CAP (community acquired pneumonia): Status: Acute (3) Heme positive stool: Status: Acute (4) Iron 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 (chronic): Status: Acute (5) Acute worsening of stage 3 chronic kidney disease: Status: Acute (6) Acute on chronic kidney failure: Status: Resolved (7) Acute on chronic hypoxic respiratory failure: Status: Acute (8) Sepsis: Status: Acute (9) New onset atrial flutter: Status: Acute DS: Summary Hospital Course Hospital Course: from admission H+P by hospitalist RADHA Walker, 08/01/23: Pt is a 68-year-old female with a PMH significant for?HFpEF, CKD 3, insulin- dependent diabetes type 2, HLD, HTN, AMY on CPAP at bedtime, and chronically on 2L O2 at home who presents to the ED with?with increased SOB and decreased O2 saturation for the past few days. Patient states symptoms began approximately 1 week ago with URI like symptoms: Patient with nasal congestion, sore throat, rhinorrhea, and earache. Symptoms resolved but then patient began developing increased shortness of breath, pulmonary congestion, and cough occasionally productive of yellowish sputum. Patient denies palpitations but daughter noted patient's pulse has been in the 100s-130s the past 2-3 days, while her O2 sat has been as low as 83% on her normal 2L O2, which pt then increased to 4L. She denies a hx of Afib. Denies any chest pain/pressure. No nausea, vomiting, abdominal pain. Pt denies any increase in lower leg edema. In the ED patient with temperature of 99.7 degrees, tachycardia up to 133, and satting at 98% O2 on 4 L. Labs were significant for leukocytosis of 22.0, H&H of 7.9/25.1, BUN 54, creatinine 3.09, AST 56, ALT 65, alk-phos 169, initial troponin 26.5, BNP 1409, Patient tested negative for influenza type a and B, our SV, and COVID. CXR showed new multifocal airspace opacities concerning for atypical pneumonia. Echocardiogram on 07/15/2023 showed normal LVEF of 60-65% with mildly dilated left atrium, [id number] aortic stenosis, and mildly dilated ascending aorta of 3.7 cm. EKG demonstrated atrial flutter with nonspecific ST and T-wave abnormalities. Pt was treated with Lasix 40 mg IV, cefepime, vancomycin, and half liter of IVF. Pt will be admitted to the hospital on telemetry for treatment further evaluation of acute hypoxic respiratory failure in the setting of new onset a flutter with RVR, HFpEF exacerbation, and multifocal pneumonia. 68yo F with HFpEF, CKD3, DM2, HTN, AMY on CPAP, and chronic hypoxic resp failure on 2L home O2. She presented with 1wk of worsening dyspnea after URI symptoms and was found to be septic from multifocal pneumonia. Hospitalization was complicated by CHF exacerbation + new-onset atrial flutter/RVR and worsening anemia with FOBT+ stool. Hospital course by problem: sepsis with acute/chronic hypoxic respiratory failure due to CAP - MRSA swab positive, vancomycin + cefepime 08/02-08/06. Blood cultures negative; discharged on doxycycline plus cefuroxime for 4 days. Weaned O2 to home dose of 2L. new-onset atrial flutter/RVR - Two episodes, the second lasting 12 hours. Converted to NSR. Continue carvedilol for rate control. After EGD/colonoscopy as below, start anticoagulation with apixaban 5 mg bid for stroke prevention on 08/11 per gastroenterology. Should follow up with her jig maker Dr Penn in 2 weeks. anemia of CKD3 with occult blood positive stool - Transfused 1u PRBCs 08/03/23 with improvement in H+H. GI consulted and EGD + C-scope done 08/06/23 showing: Endoscopy findings: Esophagus: Small hiatal hernia Stomach: Prominent and nodular appearing gastric folds-biopsied. Mild gastric antral erythema. Biopsies were obtained to check for H pylori. Duodenum: Normal-biopsied to check for celiac sprue Colonoscopy findings: Three medium to large size and 2 small polyps removed A moderate diverticulosis seen in the left colon Prep was good to fair despite copious irrigation. There was a digestive vegetable matter in the cecum, proximal AA C, hepatic and splenic flexures which could not be suctioned -Pathology reports pending for biopsies. -Inidite on 08/11 -Repeat colonoscopy in 6-12 months pending path reports -Follow up with gastroenterology acute/chronic HFpEF - Diuresed with IV furosemide then switched to her usual oral furosemide. Recent TTE 07/15/23: 1. Normal LV ejection fraction 60 65% with elevated filling pressures 2. Mildly dilated left atrium 3. Lxxe-sa-mejenbzn aortic stenosis 4. Mildly dilated ascending aorta at 3.7 cm 5. No gross pericardial effusion PACHECO/CKD3 - Cr improved with the above measures. She was discharged home with VNA services recommended but refused and will need Cardiology, Nephrology, Gastroenterology, and Primary Care follow-up. Time Spent with Patient Time attestation: Total time managing care of this patient today ___40_ minutes. Discharge coordination time: Greater than 30 minutes Quality: Safe Use of Opioids Does Pt have an Active Cancer Diagnosis on the Problem List?: No Quality: Stroke Does the patient have a stroke diagnosis?: No Physical Exam Vital Signs: Vital Signs: Last Vital Signs Temp 97.2 F 08/06/23 11:31 Pulse 63 08/06/23 11:31 Resp 18 08/06/23 11:31 BP 142/69 H 08/06/23 11:31 Pulse Ox 97 08/06/23 11:31 O2 Del Method Nasal Cannula 08/06/23 11:31 O2 Flow Rate 2 08/06/23 11:31 Oxygen Flow Rate 4 08/01/23 13:21 BMI result Body Mass Index 43.9 Gen: in no acute distress HEENT: sclera anicteric, moist mucus membranes Neck: supple Lungs: clear bileterally Heart: regular, 2/6 systolic murmur at base Abd: soft, non-tender, non-distended, obese Ext: trace bilateral leg edema Skin: warm/well-perfused Neuro: alert and oriented x3, no focal findings Psych: appropriate affect DS: Data Data Completed and Pending Completed studies during hospitalization [Text1]: Laboratory Results WBC 15.5 X10*3/uL (4.8-10.8) H 08/05/23 07:12 RBC 3.03 X10*6/uL (4.20-5.50) L 08/05/23 07:12 Hgb 8.4 g/dl (12.0-16.0) L 08/06/23 08:19 Hct 27.1 % (37.0-47.0) L 08/06/23 08:19 MCV 93.1 fL (80.0-98.0) 08/05/23 07:12 MCH 28.4 pg (27.0-33.0) 08/05/23 07:12 MCHC 30.5 g/dl (31.0-35.0) L 08/05/23 07:12 RDW 15.3 % (11.0-16.0) 08/05/23 07:12 Plt Count 482 X10*3/uL (160-400) H 08/05/23 07:12 MPV 9.8 fL (9.4-12.3) 08/05/23 07:12 Immature Gran % (Auto) Cancelled 08/01/23 14:15 Neut % (Auto) Cancelled 08/01/23 14:15 Lymph % (Auto) Cancelled 08/01/23 14:15 [place] % (Auto) Cancelled 08/01/23 14:15 Eos % (Auto) Cancelled 08/01/23 14:15 Baso % (Auto) Cancelled 08/01/23 14:15 Lymph # (Auto) Cancelled 08/01/23 14:15 [place] # (Auto) Cancelled 08/01/23 14:15 Eos # (Auto) Cancelled 08/01/23 14:15 Baso # (Auto) Cancelled 08/01/23 14:15 Abs Immat Gran (auto) Cancelled 08/01/23 14:15 Absolute Neuts (auto) Cancelled 08/01/23 14:15 Absolute Nucleated RBC 0.000 X10*3/uL (0.0-0.012) 08/05/23 07:12 Nucleated RBC % (auto) 0.0 /100WBC (0.0-0.2) 08/05/23 07:12 Neutrophils % (Manual) 92 % (45-73) H 08/01/23 14:15 Band Neutrophils % 2 % (3-5) L 08/01/23 14:15 Lymphocytes % (Manual) 4 % (20-40) L 08/01/23 14:15 Monocytes % (Manual) 2 % (2-11) 08/01/23 14:15 Abs Neuts (Manual) 20.7 X10*3/uL (2.0-8.3) H 08/01/23 14:15 Lymphocytes # (Manual) 0.9 X10*3/uL (1.2-4.9) L 08/01/23 14:15 Monocytes # (Manual) 0.4 X10*3/uL (0.1-1.2) 08/01/23 14:15 Nucleated RBCs 1 /100WBC (0-0) H 08/01/23 14:15 Platelet Estimate INCREASED (NORMAL) 08/01/23 14:15 Plt Morphology Comment NORMAL 08/01/23 14:15 RBC Morphology NOTED 08/01/23 14:15 Polychromasia 1+ (0-2) /OIF 08/01/23 14:15 Ovalocytes 1+ (5-14) /OIF 08/01/23 14:15 [place] Cells 1+ (0-2) /OIF 08/01/23 14:15 Smear Path Review SEE NOTE 08/01/23 14:15 Absolute Retic 0.062 X10*6/uL (0.026-0.095) 08/03/23 06:31 Percent Retic 2.3 % (0.5-1.8) H 08/03/23 06:31 Immature Retic Fraction 31.0 % (3.0-15.9) H 08/03/23 06:31 Retic Hgb Equivalent 24.4 pg (30.0-35.0) L 08/03/23 06:31 Hold Purple Top SEE NOTE 08/06/23 08:19 Sodium 141 mmol/L (135-145) 08/05/23 07:13 Potassium 3.7 mmol/L (3.3-5.1) 08/05/23 07:13 Chloride 108 mmol/L (96-108) 08/05/23 07:13 Carbon Dioxide 20 mmol/L (22-29) L 08/05/23 07:13 Anion Gap 17 (12-20) 08/05/23 07:13 BUN 64 mg/dL (9-16) H 08/05/23 07:13 Creatinine 2.74 mg/dL (0.5-1.4) H 08/06/23 08:19 Estim Creat Clear Calc 22.4 08/06/23 08:19 Estimated GFR 17 08/06/23 08:19 POC Glucose 98 mg/dL (60-115) 08/06/23 11:35 Random Glucose 148 mg/dL (60-115) H 08/05/23 07:13 Lactic Acid 0.7 mmol/L (0.5-2.0) 08/01/23 16:31 Calcium 8.4 mg/dL (8.4-10.2) 08/05/23 07:13 Magnesium 2.1 mg/dL (1.6-2.6) 08/05/23 07:13 Iron 17 mcg/dL (30-160) L 08/03/23 06:31 TIBC 90 mcg/dL (228-428) L 08/03/23 06:31 % Saturation 19 % (15-50) 08/03/23 06:31 Unsat Iron Binding 73 ug/dL 08/03/23 06:31 Ferritin 4244 ng/mL (10-250) H 08/03/23 06:31 Total Bilirubin 0.4 mg/dL (0.0-1.0) 08/01/23 14:15 AST 56 U/L (5-31) H 08/01/23 14:15 ALT 65 U/L (0-31) H 08/01/23 14:15 Alkaline Phosphatase 169 U/L (39-117) H 08/01/23 14:15 Lactate Dehydrogenase 324 U/L (122-220) H 08/03/23 06:31 Troponin I High Sens 26.5 ng/L (<3.5-17.0) H 08/01/23 14:15 B-Natriuretic Peptide 387 pg/mL (<100) H 08/05/23 07:12 Total Protein 6.7 g/dL (6.5-8.0) 08/01/23 14:15 Albumin 2.8 g/dL (3.5-5.0) L 08/01/23 14:15 Lipase 14 U/L (8-78) 08/01/23 14:15 Vitamin B12 811 pg/mL (200-900) 08/03/23 06:31 Folate 13.5 ng/mL (> or = 4.0) 08/03/23 06:31 Procalcitonin 0.22 ng/mL 08/05/23 07:13 Nasal Screen MRSA (PCR) NEGATIVE (Negative) 08/01/23 18:31 Nasal S. aureus Screen POSITIVE (Negative) A 08/01/23 18:31 Nasal MRSA/S.aureus Interp SEE NOTE 08/01/23 18:31 Stool Occult Blood POSITIVE (NEGATIVE) 08/03/23 21:15 Random Vancomycin 18.1 mcg/mL (15-20) 08/04/23 16:08 Hep Bs Antigen Negative (Negative) 08/05/23 07:12 Hep Bs Antibody NONREACTIVE (Nonreactive) 08/05/23 07:12 Hep B Core Total Ab Nonreactive (Nonreactive) 08/05/23 07:12 Hepatitis C Ab (EIA) Nonreactive (Nonreactive) 08/05/23 07:12 Influenza Type A (PCR) NEGATIVE (Negative) 08/01/23 14:15 Influenza Type B (PCR) NEGATIVE (Negative) 08/01/23 14:15 Ur L.pneumophila Ag Not Detected (Not Detected) 08/01/23 21:51 RSV RNA Qual (PCR) NEGATIVE (Negative) 08/01/23 14:15 SARS-CoV-2 RNA (RT-PCR) NEGATIVE (Negative) 08/01/23 14:15 Ur Strep pneumoniae Ag Not Detected (Not Detected) 08/01/23 21:51 Blood Type O Positive 08/06/23 08:19 Antibody Screen NEGATIVE 08/06/23 08:19 Crossmatch See Detail 08/01/23 18:29 Impressions Chest X-Ray 08/05/23 19:58 IMPRESSION: There are patchy right lung infiltrates, relatively stable from 08/01/2023. Lung volumes are now somewhat diminished. Discharge Plan Discharge Anticipated Discharge Date/Time: 08/06/23 18:55 Patient Disposition: Home Health Service Discharge Diagnosis: sepsis with acute/chronic hypoxic respiratory failure due to CAP new-onset atrial flutter/RVR anemia of CKD3 with occult blood positive stool acute/chronic HFpEF PACHECO/CKD3 Referrals: Sadi Harden MD [Primary Care Provider] - 1 Week José Miguel Vale MD [Physician] - 1 Week Robles Mike MD [Physician] - 1 Week Discharge Medications: New Eliquis 5 mg tablet 5 mg PO BID Qty: 60 1RF Rx Instructions: INITIATE ON 08/11 cefuroxime axetil 500 mg tablet 500 mg PO BID Qty: 10 0RF doxycycline hyclate 100 mg capsule 100 mg PO BID Qty: 10 0RF Continued (DME) FreeStyle Robert 2 Sensor Kit See Rx Instructions .Route Qty: 2 5RF Rx Instructions: As directed Lantus Solostar U-100 Insulin 100 unit/mL (3 mL) insulin pen 70 unit subcut BEDTIME Qty: 15 12RF (DME) FreeStyle Robert 2 Grover Misc See Rx Instructions .Route Qty: 1 0RF Rx Instructions: As directed lisinopril 10 mg tablet 10 mg PO DAILY Qty: 90 3RF Protocol: Hold for SBP< HOLD for SBP < : 90 multivitamin Tablet 1 tab PO DAILY aspirin 81 mg Tablet,Chewable 81 mg PO DAILY Qty: 30 0RF ferrous sulfate 325 mg (65 mg iron) Tablet 325 mg PO DAILY cholecalciferol (vitamin D3) 1,250 mcg (50,000 unit) capsule 1,250 mcg PO PISANO@0900 fluoxetine 20 mg capsule 40 mg PO DAILY sodium polystyrene sulfonate Powder 15 g PO 3XW atorvastatin 80 mg tablet 80 mg PO BEDTIME carvedilol 25 mg tablet 25 mg PO BID@0900,1500 Rx Instructions: must administer with a meal/food hydralazine 25 mg tablet 25 mg PO BID@0900,1500 insulin lispro 100 unit/mL insulin pen See Rx Instructions subcut QID Protocol: Insulin Correction Scale Less than or equal to 110 ---- Give (units): 0 111 to 150 Give (units): 0 151 to 200 Give (units): 2 201 to 250 Give (units): 4 251 to 300 Give (units): 6 301 to 350 Give (units): 8 Greater than 350 Give (units): 10 Call MD if Blood Glucose > : 350 Rx Instructions: Sliding Scale: 150-200 Give 2 units 201-250 Give 4 units 251-300 Give 6 units 301-350 Give 8 units 351-400 Give 10 units 401-450 Give 12 units > 450 Give 12 units & call MD subcutaneously 4 times a day; fexofenadine 180 mg tablet 180 mg PO DAILY ascorbic acid (vitamin C) 500 mg tablet 500 mg PO DAILY Changed furosemide 40 mg tablet 40 mg PO BID Qty: 60 2RF Discharge Orders: Discharge Order (Routine); Ordered 08/07/23 Ordered By: Joana Bales Diet: Advance to usual diet Activity on Discharge: As tolerated Stand Alone Forms: Patient Portal Discharge page Other Ambulatory Orders: Basic Metabolic Panel Fasting (Routine) Timeframe: 1 Week Facility: [facility] - Location: Laboratory Ordered By: Joana Bales Complete Blood Count Auto Diff (Routine) Timeframe: 1 Week Facility: [facility] - Location: Laboratory Ordered By: Joana Bales Care Plan Goals: respiratory health cardiac health renal health stroke prevention Health Concerns: sepsis with acute/chronic hypoxic respiratory failure due to CAP - doxycycline monohydrate 100 mg twice daily PLUS cefuroxime 500 mg twice daily for 5 days - weaned O2 to home dose of 2L new-onset atrial flutter/RVR - continue carvedilol for rate control - apixaban 5 mg twice daily for stroke prevention- START ON 08/11 - follow up with Dr Penn in 2 weeks - check CBC in 1 week anemia of CKD3 with occult blood positive stool - continue ferrous sulfate - follow up with Dr Vale in 2 weeks acute/chronic HFpEF - continue furosemide- INCREASE TO 40MG TWICE DAILY - Low-sodium diet: less than 2000 mg of sodium daily. Weigh yourself daily and call your doctor if your weight goes up by more than 3 lb/day or 5 lb/week. - follow up with Dr Penn as above - check kidney function electrolytes in 1 week PACHECO/CKD3 - renal function at baseline - follow up with your video production intern as per usual schedule Please follow up with your primary care doctor within 1 week. Return to the hospital if you experience recurrent or worsening symptoms. Plan of Treatment: as above Assessment: See Discharge Summary. Discharge Date/Time: 08/07/23 15:20
--- NOTE | 2023-08-06 12:59 | P.CONAN_ITS ---
HPI - Anesthesia Eval Consult details Narrative: 68 yo F admitted for new onset atrial flutter and multifocal pneumonia. Hx of HFpEF, mild-moderate , O2 dependent at home 2LNC. 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) CAP (community acquired pneumonia) (Acute) Elevated LFTs (Acute) Heme positive stool (Acute) Atrial flutter (Acute) Community acquired pneumonia (Acute) Elevated serum creatinine (Acute) Advance directive discussed with patient (Acute) AMY on CPAP (Acute) Hyperkalemia (Acute) Chronic renal failure (Acute) Diabetes type 2, uncontrolled (Acute) Colon cancer screening (Acute) Screening mammogram for breast cancer (Acute) Electrolyte abnormality (Acute) HTN (hypertension) (Acute) E-coli UTI (Acute) Leukocytosis (Acute) Left flank pain (Acute) Hypertensive encephalopathy (Acute) Normal physical exam (Acute) UTI (urinary tract infection) (Acute) Cough due to MARGAUX inhibitor (Acute) Hyperglycemia due to diabetes mellitus (Acute) Nausea and vomiting (Acute) Cough (Acute) Nocturnal hypoxemia (Acute) Preoperative clearance (Acute) Aortic stenosis (Acute) Oxygen dependent (Acute) Pneumonia (Acute) Obesity (Acute) Supplemental oxygen dependent (Acute) Anemia (Acute) Congestive heart failure (Acute) Contusion of left hip (Acute) Bilateral lower extremity edema (Acute) Urine findings abnormal (Acute) Depression (Acute) Past Medical History Medical History MRSA carrier CAP (community acquired pneumonia) Morbid (severe) obesity due to excess calories AMY on CPAP Chronic renal failure Secondary aldosteronism Acute renal failure Nocturnal hypoxemia Morbid obesity Diabetes type 2, controlled HTN (hypertension) Morbid obesity due to excess calories AMY (obstructive sleep apnea) Pneumonia Obesity Elevated creatine kinase Anemia Congestive heart failure Bilateral lower extremity edema High cholesterol Diabetes type 2, uncontrolled Hypertension, essential Family History Family History Father Stroke Mother Stroke Hypertension Diabetes Maternal Grandmother Diabetes Hypertension Stroke Sister Diabetes Breast cancer Son Bipolar 1 disorder Overweight Other Mental health problem Substance abuse Family history of problems with anesthesia: No Surgical History Surgical History History of surgery History of D&C History of Problems with Anesthesia: No Social History Social History Household Members: Children Housing: House Do you presently have visiting nurse or other home services: No Unable to assess alcohol history related to: Unable to respond Alcohol intake: never Patient Tobacco Use Status: Never used Tobacco e-Cigarette/Vaping Use: Never Used Second Hand Smoke Exposure: No Advance Directives Date on File: 06/09/21 service: No Current occupational status: employed Cognitive needs: No Hearing needs: No Vision needs: Yes Meds Allergies Allergy/AdvReac Type Severity Reaction Status Date / Time penicillin V Allergy Severe joint Verified 08/01/23 13:25 swelling and rash amlodipine [From [facility]] AdvReac Intermediate edema Verified 08/01/23 13:25 Active Medications: Current Medications Acetaminophen (Acetaminophen 325 Mg Tablet) 650 mg PO Q6H PRN PRN Reason: Pain, Mild (Pain Scale 1-3) Last Admin: 08/05/23 13:23 Dose: 650 mg Ascorbic Acid (Ascorbic Acid 500 Mg Tablet) 500 mg PO DAILY LORRIE Last Admin: 08/06/23 07:45 Dose: 500 mg Atorvastatin Calcium (Atorvastatin Calcium 80 Mg Tablet) 80 mg PO BEDTIME LORRIE Last Admin: 08/05/23 21:38 Dose: 80 mg Benzonatate (Benzonatate 100 Mg Capsule) 200 mg PO TID PRN PRN Reason: Cough Last Admin: 08/05/23 13:23 Dose: 200 mg Bisacodyl (Bisacodyl 5 Mg Tablet.Dr) 10 mg PO ONCE ONE Stop: 08/06/23 13:01 Carvedilol (Carvedilol 25 Mg Tablet) 25 mg PO BID@0900,1500 LORRIE; Protocol Last Admin: 08/06/23 07:45 Dose: 25 mg Dextrose (Dextrose 50 % 25 Gm/50 Ml Syringe) 25 gm IVPUSH Q15M PRN; Protocol PRN Reason: per Hypoglycemia Standing Ord. Last Admin: 08/06/23 07:46 Dose: 12.5 gm Docusate Sodium (Docusate Sodium 100 Mg Capsule) 100 mg PO DAILY PRN PRN Reason: Constipation Last Admin: 08/05/23 15:33 Dose: 100 mg Ferrous Sulfate (Ferrous Sulfate 324 Mg Tablet.Dr) 324 mg PO DAILY [facility] Last Admin: 08/06/23 07:45 Dose: 324 mg Fluoxetine HCl (Fluoxetine Hcl 20 Mg Capsule) 40 mg PO DAILY [facility] Last Admin: 08/06/23 07:45 Dose: 40 mg Furosemide (Furosemide 40 Mg Tablet) 40 mg PO BID@0900,1800 [facility]; Protocol Last Admin: 08/06/23 07:44 Dose: 40 mg Glucose (Glucose Gel 15 Gm Gel..Gram.) 15 gm PO Q15M PRN; Protocol PRN Reason: per Hypoglycemia Standing Ord. Guaifenesin/Dextromethorphan (Guaifenesin Dm 100/10/5 Ml 5 Ml Syrup) 5 ml PO Q4H PRN PRN Reason: coufgh Last Admin: 08/05/23 13:23 Dose: 5 ml Hydralazine HCl (Hydralazine Hcl 25 Mg Tablet) 25 mg PO BID@0900,1500 [facility]; Protocol Last Admin: 08/06/23 07:45 Dose: 25 mg Vancomycin HCl 500 mg/ Sodium (Chloride) 110 mls @ 110 mls/hr IV Q24H [facility] Last Infusion: 08/05/23 20:00 Dose: Infused Cefepime HCl 0.5 gm/ Sodium (Chloride) 50 mls @ 100 mls/hr IV Q24H [facility] Last Infusion: 08/06/23 11:09 Dose: Infused Insulin Glargine (Insulin Glargine,Hum.Rec.Anlog 100 Unit/Ml 10 Ml Vial) 25 unit SUBCUT BEDTIME [facility] Last Admin: 08/05/23 21:38 Dose: 25 unit Insulin Human Lispro (Insulin Lispro 100 Unit/Ml 3 Ml Vial) 0 unit SUBCUT QIDACHS [facility]; Protocol Last Admin: 08/06/23 11:09 Dose: Not Given Lisinopril (Lisinopril 20 Mg Tablet) 20 mg PO DAILY [facility]; Protocol Last Admin: 08/06/23 07:44 Dose: 20 mg Loratadine (Loratadine 10 Mg Tablet) 10 mg PO DAILY [facility] Last Admin: 08/06/23 07:45 Dose: 10 mg Multivitamins/Vitamin C (Multivitamin Tablet) 1 tab PO DAILY [facility] Last Admin: 08/06/23 07:45 Dose: 1 tab Ondansetron HCl (Ondansetron Hcl 4 Mg/2 Ml Vial) 4 mg IVPUSH Q8H PRN PRN Reason: Nausea and Vomiting Last Admin: 08/05/23 21:38 Dose: 4 mg Pantoprazole Sodium (Pantoprazole Sodium 40 Mg/10 Ml Vial) 40 mg IVPUSH BID@0630,1630 [facility] Last Admin: 08/06/23 06:39 Dose: 40 mg Pharmacy Consult (Consult Rx Vancomycin Dosing) 1 each MISCELLANE DAILY [facility] Polyethylene Glycol/Electrolytes (Peg 3350/Na Sulf,Bicarb,Cl/Kcl 4,000 Ml Soln.Recon) 4,000 ml PO ONCE@1400 [facility] Last Admin: 08/05/23 15:34 Dose: 4,000 ml Sodium Chloride (0.9 % Sodium Chloride Flush 3 Ml Syringe) 3 ml IVFLUSH QSHIFT [facility] Last Admin: 08/06/23 07:46 Dose: 3 ml Home Medications Medication Instructions Recorded Confirmed Last Taken Type ascorbic acid (vitamin C) 500 mg 500 mg PO DAILY 09/22/20 08/01/23 08/01/23 History tablet fexofenadine 180 mg tablet 180 mg PO DAILY 09/22/20 08/01/23 08/01/23 History multivitamin 1 tab PO DAILY 09/12/22 08/01/23 08/01/23 History cholecalciferol (vitamin D3) 1,250 1,250 mcg PO PISANO@0900 11/27/22 08/01/23 07/28/23 History mcg (50,000 unit) capsule ferrous sulfate 325 mg (65 mg 325 mg PO DAILY 11/27/22 08/01/23 08/01/23 History iron) tablet atorvastatin 80 mg tablet 80 mg PO BEDTIME 08/01/23 08/01/23 07/31/23 History carvedilol 25 mg tablet 25 mg PO BID@0900,1500 08/01/23 08/01/23 08/01/23 History fluoxetine 20 mg capsule 40 mg PO DAILY 08/01/23 08/01/23 08/01/23 History hydralazine 25 mg tablet 25 mg PO BID@0900,1500 08/01/23 08/01/23 08/01/23 History insulin lispro 100 unit/mL See Rx Instructions subcut QID 08/01/23 08/01/23 08/01/23 History subcutaneous pen sodium polystyrene sulfonate 15 g PO 3XW 08/01/23 08/01/23 07/31/23 History Exam Exam Date and Time: August 06, 2023 1300 Height,Weight and Vital Signs: Height 5 ft 2 in Weight 108.862 kg Last Vital Signs Temp 97.2 F 08/06/23 11:31 Pulse 63 08/06/23 11:31 Resp 18 08/06/23 11:31 BP 142/69 H 08/06/23 11:31 Pulse Ox 97 08/06/23 11:31 O2 Del Method Nasal Cannula 08/06/23 11:31 O2 Flow Rate 2 08/06/23 11:31 Oxygen Flow Rate 4 08/01/23 13:21 Pertinent Lab Results Pertinent Lab Results: Laboratory Tests 08/01/23 08/01/23 08/01/23 14:15 16:31 18:29 WBC 22.0 H RBC 2.75 L D Hgb 7.9 L D Hct 25.1 L D MCV 91.3 MCH 28.7 MCHC 31.5 RDW 15.3 Plt Count 460 H MPV 9.9 Immature Gran % (Auto) Cancelled Neut % (Auto) Cancelled Lymph % (Auto) Cancelled [place] % (Auto) Cancelled Eos % (Auto) Cancelled Baso % (Auto) Cancelled Lymph # (Auto) Cancelled [place] # (Auto) Cancelled Eos # (Auto) Cancelled Baso # (Auto) Cancelled Abs Immat Gran (auto) Cancelled Absolute Neuts (auto) Cancelled Absolute Nucleated RBC 0.020 H Nucleated RBC % (auto) 0.1 Neutrophils % (Manual) 92 H Band Neutrophils % 2 L Lymphocytes % (Manual) 4 L Monocytes % (Manual) 2 Abs Neuts (Manual) 20.7 H Lymphocytes # (Manual) 0.9 L Monocytes # (Manual) 0.4 Nucleated RBCs 1 H Platelet Estimate INCREASED Plt Morphology Comment NORMAL RBC Morphology NOTED Polychromasia 1+ (0-2) Ovalocytes 1+ (5-14) [place] Cells 1+ (0-2) Smear Path Review SEE NOTE Absolute Retic Percent Retic Immature Retic Fraction Retic Hgb Equivalent Hold Purple Top Sodium 142 Potassium 3.7 Chloride 110 H Carbon Dioxide 19 L Anion Gap 17 BUN 54 H Creatinine 3.09 H Estim Creat Clear Calc 19.9 Estimated GFR 15 POC Glucose Random Glucose 68 Lactic Acid 0.7 Calcium 9.2 Magnesium 2.2 Iron TIBC % Saturation Unsat Iron Binding Ferritin Total Bilirubin 0.4 AST 56 H ALT 65 H Alkaline Phosphatase 169 H Lactate Dehydrogenase Troponin I High Sens 26.5 H B-Natriuretic Peptide 1409 H Total Protein 6.7 Albumin 2.8 L Lipase 14 Vitamin B12 Folate Procalcitonin 0.41 Nasal Screen MRSA (PCR) Nasal S. aureus Screen Nasal MRSA/S.aureus Interp Stool Occult Blood Random Vancomycin Hep Bs Antigen Hep Bs Antibody Hep B Core Total Ab Hepatitis C Ab (EIA) Influenza Type A (PCR) NEGATIVE Influenza Type B (PCR) NEGATIVE Ur L.pneumophila Ag RSV RNA Qual (PCR) NEGATIVE SARS-CoV-2 RNA (RT-PCR) NEGATIVE Ur Strep pneumoniae Ag Blood Type O Positive Antibody Screen NEGATIVE Crossmatch See Detail 08/01/23 08/01/23 08/01/23 18:31 21:36 21:51 WBC RBC Hgb Hct MCV MCH MCHC RDW Plt Count MPV Immature Gran % (Auto) Neut % (Auto) Lymph % (Auto) [place] % (Auto) Eos % (Auto) Baso % (Auto) Lymph # (Auto) [place] # (Auto) Eos # (Auto) Baso # (Auto) Abs Immat Gran (auto) Absolute Neuts (auto) Absolute Nucleated RBC Nucleated RBC % (auto) Neutrophils % (Manual) Band Neutrophils % Lymphocytes % (Manual) Monocytes % (Manual) Abs Neuts (Manual) Lymphocytes # (Manual) Monocytes # (Manual) Nucleated RBCs Platelet Estimate Plt Morphology Comment RBC Morphology Polychromasia Ovalocytes [place] Cells Smear Path Review Absolute Retic Percent Retic Immature Retic Fraction Retic Hgb Equivalent Hold Purple Top Sodium Potassium Chloride Carbon Dioxide Anion Gap BUN Creatinine Estim Creat Clear Calc Estimated GFR POC Glucose 101 Random Glucose Lactic Acid Calcium Magnesium Iron TIBC % Saturation Unsat Iron Binding Ferritin Total Bilirubin AST ALT Alkaline Phosphatase Lactate Dehydrogenase Troponin I High Sens B-Natriuretic Peptide Total Protein Albumin Lipase Vitamin B12 Folate Procalcitonin Nasal Screen MRSA (PCR) NEGATIVE Nasal S. aureus Screen POSITIVE A Nasal MRSA/S.aureus Interp SEE NOTE Stool Occult Blood Random Vancomycin Hep Bs Antigen Hep Bs Antibody Hep B Core Total Ab Hepatitis C Ab (EIA) Influenza Type A (PCR) Influenza Type B (PCR) Ur L.pneumophila Ag Not Detected RSV RNA Qual (PCR) SARS-CoV-2 RNA (RT-PCR) Ur Strep pneumoniae Ag Not Detected Blood Type Antibody Screen Crossmatch 08/02/23 08/02/23 08/02/23 05:39 06:44 07:01 WBC 26.8 H RBC 2.58 L Hgb 7.5 L Hct 24.0 L MCV 93.0 MCH 29.1 MCHC 31.3 RDW 15.2 Plt Count 413 H MPV 9.6 Immature Gran % (Auto) Neut % (Auto) Lymph % (Auto) [place] % (Auto) Eos % (Auto) Baso % (Auto) Lymph # (Auto) [place] # (Auto) Eos # (Auto) Baso # (Auto) Abs Immat Gran (auto) Absolute Neuts (auto) Absolute Nucleated RBC 0.020 H Nucleated RBC % (auto) 0.1 Neutrophils % (Manual) Band Neutrophils % Lymphocytes % (Manual) Monocytes % (Manual) Abs Neuts (Manual) Lymphocytes # (Manual) Monocytes # (Manual) Nucleated RBCs Platelet Estimate Plt Morphology Comment RBC Morphology Polychromasia Ovalocytes [place] Cells Smear Path Review Absolute Retic Percent Retic Immature Retic Fraction Retic Hgb Equivalent Hold Purple Top Sodium 143 Potassium 4.0 Chloride 112 H Carbon Dioxide 18 L Anion Gap 17 BUN 55 H Creatinine 3.11 H Estim Creat Clear Calc 19.8 Estimated GFR 15 POC Glucose 139 H 121 H Random Glucose 52 L* Lactic Acid Calcium 8.5 D Magnesium 2.3 Iron TIBC % Saturation Unsat Iron Binding Ferritin Total Bilirubin AST ALT Alkaline Phosphatase Lactate Dehydrogenase Troponin I High Sens B-Natriuretic Peptide Total Protein Albumin Lipase Vitamin B12 Folate Procalcitonin Nasal Screen MRSA (PCR) Nasal S. aureus Screen Nasal MRSA/S.aureus Interp Stool Occult Blood Random Vancomycin Hep Bs Antigen Hep Bs Antibody Hep B Core Total Ab Hepatitis C Ab (EIA) Influenza Type A (PCR) Influenza Type B (PCR) Ur L.pneumophila Ag RSV RNA Qual (PCR) SARS-CoV-2 RNA (RT-PCR) Ur Strep pneumoniae Ag Blood Type Antibody Screen Crossmatch 08/02/23 08/02/23 08/02/23 07:15 11:39 16:58 WBC RBC Hgb Hct MCV MCH MCHC RDW Plt Count MPV Immature Gran % (Auto) Neut % (Auto) Lymph % (Auto) [place] % (Auto) Eos % (Auto) Baso % (Auto) Lymph # (Auto) [place] # (Auto) Eos # (Auto) Baso # (Auto) Abs Immat Gran (auto) Absolute Neuts (auto) Absolute Nucleated RBC Nucleated RBC % (auto) Neutrophils % (Manual) Band Neutrophils % Lymphocytes % (Manual) Monocytes % (Manual) Abs Neuts (Manual) Lymphocytes # (Manual) Monocytes # (Manual) Nucleated RBCs Platelet Estimate Plt Morphology Comment RBC Morphology Polychromasia Ovalocytes [place] Cells Smear Path Review Absolute Retic Percent Retic Immature Retic Fraction Retic Hgb Equivalent Hold Purple Top Sodium Potassium Chloride Carbon Dioxide Anion Gap BUN Creatinine Estim Creat Clear Calc Estimated GFR POC Glucose 121 H 127 H 154 H Random Glucose Lactic Acid Calcium Magnesium Iron TIBC % Saturation Unsat Iron Binding Ferritin Total Bilirubin AST ALT Alkaline Phosphatase Lactate Dehydrogenase Troponin I High Sens B-Natriuretic Peptide Total Protein Albumin Lipase Vitamin B12 Folate Procalcitonin Nasal Screen MRSA (PCR) Nasal S. aureus Screen Nasal MRSA/S.aureus Interp Stool Occult Blood Random Vancomycin Hep Bs Antigen Hep Bs Antibody Hep B Core Total Ab Hepatitis C Ab (EIA) Influenza Type A (PCR) Influenza Type B (PCR) Ur L.pneumophila Ag RSV RNA Qual (PCR) SARS-CoV-2 RNA (RT-PCR) Ur Strep pneumoniae Ag Blood Type Antibody Screen Crossmatch 08/02/23 08/03/23 08/03/23 21:22 06:31 07:33 WBC 20.6 H RBC 2.70 L Hgb 7.7 L Hct 25.2 L MCV 93.3 MCH 28.5 MCHC 30.6 L RDW 15.4 Plt Count 447 H MPV 9.9 Immature Gran % (Auto) Neut % (Auto) Lymph % (Auto) [place] % (Auto) Eos % (Auto) Baso % (Auto) Lymph # (Auto) [place] # (Auto) Eos # (Auto) Baso # (Auto) Abs Immat Gran (auto) Absolute Neuts (auto) Absolute Nucleated RBC 0.020 H Nucleated RBC % (auto) 0.1 Neutrophils % (Manual) Band Neutrophils % Lymphocytes % (Manual) Monocytes % (Manual) Abs Neuts (Manual) Lymphocytes # (Manual) Monocytes # (Manual) Nucleated RBCs Platelet Estimate Plt Morphology Comment RBC Morphology Polychromasia Ovalocytes [place] Cells Smear Path Review Absolute Retic 0.062 Percent Retic 2.3 H Immature Retic Fraction 31.0 H Retic Hgb Equivalent 24.4 L Hold Purple Top Sodium 145 Potassium 3.7 Chloride 112 H Carbon Dioxide 18 L Anion Gap 19 BUN 60 H Creatinine 3.16 H Estim Creat Clear Calc 19.5 Estimated GFR 15 POC Glucose 129 H 108 Random Glucose 117 H Lactic Acid Calcium 8.9 Magnesium 2.2 Iron 17 L TIBC 90 L % Saturation 19 Unsat Iron Binding 73 Ferritin 4244 H Total Bilirubin AST ALT Alkaline Phosphatase Lactate Dehydrogenase 324 H Troponin I High Sens B-Natriuretic Peptide 655 H Total Protein Albumin Lipase Vitamin B12 811 Folate 13.5 Procalcitonin 0.37 Nasal Screen MRSA (PCR) Nasal S. aureus Screen Nasal MRSA/S.aureus Interp Stool Occult Blood Random Vancomycin Hep Bs Antigen Hep Bs Antibody Hep B Core Total Ab Hepatitis C Ab (EIA) Influenza Type A (PCR) Influenza Type B (PCR) Ur L.pneumophila Ag RSV RNA Qual (PCR) SARS-CoV-2 RNA (RT-PCR) Ur Strep pneumoniae Ag Blood Type Antibody Screen Crossmatch 08/03/23 08/03/23 08/03/23 11:28 16:12 20:20 WBC RBC Hgb Hct MCV MCH MCHC RDW Plt Count MPV Immature Gran % (Auto) Neut % (Auto) Lymph % (Auto) [place] % (Auto) Eos % (Auto) Baso % (Auto) Lymph # (Auto) [place] # (Auto) Eos # (Auto) Baso # (Auto) Abs Immat Gran (auto) Absolute Neuts (auto) Absolute Nucleated RBC Nucleated RBC % (auto) Neutrophils % (Manual) Band Neutrophils % Lymphocytes % (Manual) Monocytes % (Manual) Abs Neuts (Manual) Lymphocytes # (Manual) Monocytes # (Manual) Nucleated RBCs Platelet Estimate Plt Morphology Comment RBC Morphology Polychromasia Ovalocytes [place] Cells Smear Path Review Absolute Retic Percent Retic Immature Retic Fraction Retic Hgb Equivalent Hold Purple Top Sodium Potassium Chloride Carbon Dioxide Anion Gap BUN Creatinine Estim Creat Clear Calc Estimated GFR POC Glucose 144 H 180 H 189 H Random Glucose Lactic Acid Calcium Magnesium Iron TIBC % Saturation Unsat Iron Binding Ferritin Total Bilirubin AST ALT Alkaline Phosphatase Lactate Dehydrogenase Troponin I High Sens B-Natriuretic Peptide Total Protein Albumin Lipase Vitamin B12 Folate Procalcitonin Nasal Screen MRSA (PCR) Nasal S. aureus Screen Nasal MRSA/S.aureus Interp Stool Occult Blood Random Vancomycin Hep Bs Antigen Hep Bs Antibody Hep B Core Total Ab Hepatitis C Ab (EIA) Influenza Type A (PCR) Influenza Type B (PCR) Ur L.pneumophila Ag RSV RNA Qual (PCR) SARS-CoV-2 RNA (RT-PCR) Ur Strep pneumoniae Ag Blood Type Antibody Screen Crossmatch 08/03/23 08/04/23 08/04/23 21:15 05:58 07:21 WBC 16.6 H RBC 2.86 L Hgb 8.3 L Hct 27.2 L MCV 95.1 MCH 29.0 MCHC 30.5 L RDW 15.3 Plt Count 463 H MPV 10.0 Immature Gran % (Auto) Neut % (Auto) Lymph % (Auto) [place] % (Auto) Eos % (Auto) Baso % (Auto) Lymph # (Auto) [place] # (Auto) Eos # (Auto) Baso # (Auto) Abs Immat Gran (auto) Absolute Neuts (auto) Absolute Nucleated RBC 0.030 H Nucleated RBC % (auto) 0.2 Neutrophils % (Manual) Band Neutrophils % Lymphocytes % (Manual) Monocytes % (Manual) Abs Neuts (Manual) Lymphocytes # (Manual) Monocytes # (Manual) Nucleated RBCs Platelet Estimate Plt Morphology Comment RBC Morphology Polychromasia Ovalocytes [place] Cells Smear Path Review Absolute Retic Percent Retic Immature Retic Fraction Retic Hgb Equivalent Hold Purple Top Sodium 143 Potassium 4.0 Chloride 110 H Carbon Dioxide 18 L Anion Gap 19 BUN 63 H Creatinine 2.88 H Estim Creat Clear Calc 21.4 Estimated GFR 16 POC Glucose 117 H Random Glucose 125 H Lactic Acid Calcium 8.4 Magnesium 2.2 Iron TIBC % Saturation Unsat Iron Binding Ferritin Total Bilirubin AST ALT Alkaline Phosphatase Lactate Dehydrogenase Troponin I High Sens B-Natriuretic Peptide 669 H Total Protein Albumin Lipase Vitamin B12 Folate Procalcitonin Nasal Screen MRSA (PCR) Nasal S. aureus Screen Nasal MRSA/S.aureus Interp Stool Occult Blood POSITIVE Random Vancomycin Hep Bs Antigen Hep Bs Antibody Hep B Core Total Ab Hepatitis C Ab (EIA) Influenza Type A (PCR) Influenza Type B (PCR) Ur L.pneumophila Ag RSV RNA Qual (PCR) SARS-CoV-2 RNA (RT-PCR) Ur Strep pneumoniae Ag Blood Type Antibody Screen Crossmatch 08/04/23 08/04/23 08/04/23 11:30 16:08 16:26 WBC RBC Hgb Hct MCV MCH MCHC RDW Plt Count MPV Immature Gran % (Auto) Neut % (Auto) Lymph % (Auto) [place] % (Auto) Eos % (Auto) Baso % (Auto) Lymph # (Auto) [place] # (Auto) Eos # (Auto) Baso # (Auto) Abs Immat Gran (auto) Absolute Neuts (auto) Absolute Nucleated RBC Nucleated RBC % (auto) Neutrophils % (Manual) Band Neutrophils % Lymphocytes % (Manual) Monocytes % (Manual) Abs Neuts (Manual) Lymphocytes # (Manual) Monocytes # (Manual) Nucleated RBCs Platelet Estimate Plt Morphology Comment RBC Morphology Polychromasia Ovalocytes [place] Cells Smear Path Review Absolute Retic Percent Retic Immature Retic Fraction Retic Hgb Equivalent Hold Purple Top Sodium Potassium Chloride Carbon Dioxide Anion Gap BUN Creatinine Estim Creat Clear Calc Estimated GFR POC Glucose 153 H 229 H Random Glucose Lactic Acid Calcium Magnesium Iron TIBC % Saturation Unsat Iron Binding Ferritin Total Bilirubin AST ALT Alkaline Phosphatase Lactate Dehydrogenase Troponin I High Sens B-Natriuretic Peptide Total Protein Albumin Lipase Vitamin B12 Folate Procalcitonin Nasal Screen MRSA (PCR) Nasal S. aureus Screen Nasal MRSA/S.aureus Interp Stool Occult Blood Random Vancomycin 18.1 Hep Bs Antigen Hep Bs Antibody Hep B Core Total Ab Hepatitis C Ab (EIA) Influenza Type A (PCR) Influenza Type B (PCR) Ur L.pneumophila Ag RSV RNA Qual (PCR) SARS-CoV-2 RNA (RT-PCR) Ur Strep pneumoniae Ag Blood Type Antibody Screen Crossmatch 08/04/23 08/05/23 08/05/23 20:15 07:12 07:13 WBC 15.5 H RBC 3.03 L Hgb 8.6 L Hct 28.2 L MCV 93.1 MCH 28.4 MCHC 30.5 L RDW 15.3 Plt Count 482 H MPV 9.8 Immature Gran % (Auto) Neut % (Auto) Lymph % (Auto) [place] % (Auto) Eos % (Auto) Baso % (Auto) Lymph # (Auto) [place] # (Auto) Eos # (Auto) Baso # (Auto) Abs Immat Gran (auto) Absolute Neuts (auto) Absolute Nucleated RBC 0.000 Nucleated RBC % (auto) 0.0 Neutrophils % (Manual) Band Neutrophils % Lymphocytes % (Manual) Monocytes % (Manual) Abs Neuts (Manual) Lymphocytes # (Manual) Monocytes # (Manual) Nucleated RBCs Platelet Estimate Plt Morphology Comment RBC Morphology Polychromasia Ovalocytes [place] Cells Smear Path Review Absolute Retic Percent Retic Immature Retic Fraction Retic Hgb Equivalent Hold Purple Top Sodium 141 Potassium 3.7 Chloride 108 Carbon Dioxide 20 L Anion Gap 17 BUN 64 H Creatinine 2.95 H Estim Creat Clear Calc 20.9 Estimated GFR 16 POC Glucose 195 H Random Glucose 148 H Lactic Acid Calcium 8.4 Magnesium 2.1 Iron TIBC % Saturation Unsat Iron Binding Ferritin Total Bilirubin AST ALT Alkaline Phosphatase Lactate Dehydrogenase Troponin I High Sens B-Natriuretic Peptide 387 H Total Protein Albumin Lipase Vitamin B12 Folate Procalcitonin 0.22 Nasal Screen MRSA (PCR) Nasal S. aureus Screen Nasal MRSA/S.aureus Interp Stool Occult Blood Random Vancomycin Hep Bs Antigen Negative Hep Bs Antibody NONREACTIVE Hep B Core Total Ab Nonreactive Hepatitis C Ab (EIA) Nonreactive Influenza Type A (PCR) Influenza Type B (PCR) Ur L.pneumophila Ag RSV RNA Qual (PCR) SARS-CoV-2 RNA (RT-PCR) Ur Strep pneumoniae Ag Blood Type Antibody Screen Crossmatch 08/05/23 08/05/23 08/05/23 07:35 11:28 16:47 WBC RBC Hgb Hct MCV MCH MCHC RDW Plt Count MPV Immature Gran % (Auto) Neut % (Auto) Lymph % (Auto) [place] % (Auto) Eos % (Auto) Baso % (Auto) Lymph # (Auto) [place] # (Auto) Eos # (Auto) Baso # (Auto) Abs Immat Gran (auto) Absolute Neuts (auto) Absolute Nucleated RBC Nucleated RBC % (auto) Neutrophils % (Manual) Band Neutrophils % Lymphocytes % (Manual) Monocytes % (Manual) Abs Neuts (Manual) Lymphocytes # (Manual) Monocytes # (Manual) Nucleated RBCs Platelet Estimate Plt Morphology Comment RBC Morphology Polychromasia Ovalocytes [place] Cells Smear Path Review Absolute Retic Percent Retic Immature Retic Fraction Retic Hgb Equivalent Hold Purple Top Sodium Potassium Chloride Carbon Dioxide Anion Gap BUN Creatinine Estim Creat Clear Calc Estimated GFR POC Glucose 139 H 234 H 205 H Random Glucose Lactic Acid Calcium Magnesium Iron TIBC % Saturation Unsat Iron Binding Ferritin Total Bilirubin AST ALT Alkaline Phosphatase Lactate Dehydrogenase Troponin I High Sens B-Natriuretic Peptide Total Protein Albumin Lipase Vitamin B12 Folate Procalcitonin Nasal Screen MRSA (PCR) Nasal S. aureus Screen Nasal MRSA/S.aureus Interp Stool Occult Blood Random Vancomycin Hep Bs Antigen Hep Bs Antibody Hep B Core Total Ab Hepatitis C Ab (EIA) Influenza Type A (PCR) Influenza Type B (PCR) Ur L.pneumophila Ag RSV RNA Qual (PCR) SARS-CoV-2 RNA (RT-PCR) Ur Strep pneumoniae Ag Blood Type Antibody Screen Crossmatch 08/05/23 08/06/23 08/06/23 20:16 07:11 08:19 WBC RBC Hgb 8.4 L Hct 27.1 L MCV MCH MCHC RDW Plt Count MPV Immature Gran % (Auto) Neut % (Auto) Lymph % (Auto) [place] % (Auto) Eos % (Auto) Baso % (Auto) Lymph # (Auto) [place] # (Auto) Eos # (Auto) Baso # (Auto) Abs Immat Gran (auto) Absolute Neuts (auto) Absolute Nucleated RBC Nucleated RBC % (auto) Neutrophils % (Manual) Band Neutrophils % Lymphocytes % (Manual) Monocytes % (Manual) Abs Neuts (Manual) Lymphocytes # (Manual) Monocytes # (Manual) Nucleated RBCs Platelet Estimate Plt Morphology Comment RBC Morphology Polychromasia Ovalocytes Remington Cells Smear Path Review Absolute Retic Percent Retic Immature Retic Fraction Retic Hgb Equivalent Hold Purple Top SEE NOTE Sodium Potassium Chloride Carbon Dioxide Anion Gap BUN Creatinine 2.74 H Estim Creat Clear Calc 22.4 Estimated GFR 17 POC Glucose 171 H 89 Random Glucose Lactic Acid Calcium Magnesium Iron TIBC % Saturation Unsat Iron Binding Ferritin Total Bilirubin AST ALT Alkaline Phosphatase Lactate Dehydrogenase Troponin I High Sens B-Natriuretic Peptide Total Protein Albumin Lipase Vitamin B12 Folate Procalcitonin Nasal Screen MRSA (PCR) Nasal S. aureus Screen Nasal MRSA/S.aureus Interp Stool Occult Blood Random Vancomycin Hep Bs Antigen Hep Bs Antibody Hep B Core Total Ab Hepatitis C Ab (EIA) Influenza Type A (PCR) Influenza Type B (PCR) Ur L.pneumophila Ag RSV RNA Qual (PCR) SARS-CoV-2 RNA (RT-PCR) Ur Strep pneumoniae Ag Blood Type O Positive Antibody Screen NEGATIVE Crossmatch 08/06/23 08/06/23 10:22 11:35 WBC RBC Hgb Hct MCV MCH MCHC RDW Plt Count MPV Immature Gran % (Auto) Neut % (Auto) Lymph % (Auto) [place] % (Auto) Eos % (Auto) Baso % (Auto) Lymph # (Auto) [place] # (Auto) Eos # (Auto) Baso # (Auto) Abs Immat Gran (auto) Absolute Neuts (auto) Absolute Nucleated RBC Nucleated RBC % (auto) Neutrophils % (Manual) Band Neutrophils % Lymphocytes % (Manual) Monocytes % (Manual) Abs Neuts (Manual) Lymphocytes # (Manual) Monocytes # (Manual) Nucleated RBCs Platelet Estimate Plt Morphology Comment RBC Morphology Polychromasia Ovalocytes Remington Cells Smear Path Review Absolute Retic Percent Retic Immature Retic Fraction Retic Hgb Equivalent Hold Purple Top Sodium Potassium Chloride Carbon Dioxide Anion Gap BUN Creatinine Estim Creat Clear Calc Estimated GFR POC Glucose 105 98 Random Glucose Lactic Acid Calcium Magnesium Iron TIBC % Saturation Unsat Iron Binding Ferritin Total Bilirubin AST ALT Alkaline Phosphatase Lactate Dehydrogenase Troponin I High Sens B-Natriuretic Peptide Total Protein Albumin Lipase Vitamin B12 Folate Procalcitonin Nasal Screen MRSA (PCR) Nasal S. aureus Screen Nasal MRSA/S.aureus Interp Stool Occult Blood Random Vancomycin Hep Bs Antigen Hep Bs Antibody Hep B Core Total Ab Hepatitis C Ab (EIA) Influenza Type A (PCR) Influenza Type B (PCR) Ur L.pneumophila Ag RSV RNA Qual (PCR) SARS-CoV-2 RNA (RT-PCR) Ur Strep pneumoniae Ag Blood Type Antibody Screen Crossmatch Airway Mallampati Class: III TM Dist: <=3cm Neck ROM: Full Loose/Missing/Broken Teeth: Yes (dentures removed, patient denies loose or broken teeth) Heart: S1S2 Lungs: Diminished breath sounds bilaterally Assessment and Plan Assessment Anesthesia Assessment: Anesthesia Plan Discussed and Chart Reviewed Final Anesthetic Review Family History of Problems with Anesthesia: No History of Problems with Anesthesia: No NPO: Yes ASA Class: IV Final Preanesthetic Review: No Changes in Pt Med Stat, Meds/Allgs Chart Reviewed, Consent Obtained/Reviewed and Anes Risks/Benef Reviewed Patient Risk: Intermediate Procedure Risk: Low Anesthetic Plan Anesthetic Plan: MAC: and Agree w/ Assess. and Plan Disposition: Standard PACU
[2023-08-06 13:01] LABS: Glucose, Whole Blood 90 mg/dL (60-115)
--- NOTE | 2023-08-06 13:19 | MHC.SHP ---
Pre-Procedural Eval Section A Date of Service: 08/06/23 The patient is an INPATIENT: Yes Changes since office visit: Yes New Medical Problems, Yes Changes in Medication and Yes Patient answered all questions; No Cold of Flu in the past 2 weeks The History & Physical has been completed within 30 days and I have reviewed it.: Yes Section B Chief Complaint: HFpED exacerbation, new onset AFlutter w/ rvr Allergies: Allergies Allergy/AdvReac Type Severity Reaction Status Date / Time penicillin V Allergy Severe joint Verified 08/01/23 13:25 swelling and rash [facility] AdvReac Intermediate edema Verified 08/01/23 13:25 Plan I have reviewed the history and physical and performed a pertinent physical examination on my patient. No changes have occurred unless specified. Time Spent With Patient Time: Total time managing care of this patient today ____ minutes.
[2023-08-06 13:28] LABS: Transglutaminase Ab IgG <1.0 U/mL; Transglutaminase IgA <1.0 U/mL
--- NOTE | 2023-08-06 13:35 | PC.RT ---
pt refusing cpap for several days. Cpap will be pulled from patients room.
--- NOTE | 2023-08-06 14:51 | P.OP_ITS ---
Operative Note Operative Note Date of Service: 08/06/23 Narrative: FLEXIBLE TRANSORAL UPPER GASTROINTESTINAL ENDOSCOPY WITH BIOPSIES AND COLONOSCOPY TILL CECUM WITH SNARE POLYPECTOMY, SUBMUCOSAL INJECTION AND HEMOCLIP PLACEMENT Pre-op diagnosis: Chronic acute on chronic anemia, heme-positive stools Post-op diagnosis: Hiatal hernia, gastritis, colon polyps, diverticulosis? Endoscopist:? José Miguel Vale MD Anesthesia:?MAC UPPER ENDOSCOPY Consent: Indications for the procedure and potential complications of bleeding, perforation, reaction to medications and missed diagnosis were discussed with the patient and informed consent was obtained. Instrument: Olympus GIF H 190 mid size upper endoscope Monitoring: Vital signs and clinical assessment, continuous EKG monitoring, Pulse oximetry, Carbon Dioxide monitoring and blood pressure monitoring were done throughout the procedure. Procedure: The patient was placed in the left lateral decubitis position and pre-procedure medications were administered and a bite block was placed. The endoscope was inserted into the mouth and advanced under direct vision to the third part of duodenum. A careful inspection was made as the upper endoscope was withdrawn including a retroflexed examination of the proximal stomach; Findings and interventions are described below. Findings: Larynx: Normal Esophagus: GE junction at 40 cms, small hiatal hernia 38 to 40 cms. No esophagitis or Monte's. Stomach: Prominent and nodular appearing gastric folds - biopsied. Mild gastric antral erythema. Biopsies were obtained to check for H pylori. Grade 3 flap valve on retroflexed examination of the cardia. Duodenum: Normal bulb and descending duodenum. Biopsies were obtained from 3rd part of the duodenum to check for celiac sprue. Intervention: Biopsies as noted above COLONOSCOPY PROCEDURE NOTE Consent: Indications for the procedure and potential complications of bleeding, perforation, reaction to medications and missed diagnosis were discussed with the patient and informed consent was obtained. Instrument: Olympus PCF H 190 L variable stiffness pediatric colonoscope Monitoring: Vital signs and clinical assessment, intermittent blood pressure monitoring, continuous EKG monitoring, Pulse oximetry and Carbon Dioxide monitoring were done throughout the procedure. Colon withdrawl time was 31 minutes. Procedure: The patient was placed in the left lateral decubitis position and pre-procedure medications were administered. After a digital rectal examination of the ano-rectum, the video colonoscope was inserted into the rectum and advanced through the colon to the cecum. The colonoscope was slowly withdrawn in a retrograde panoramic fashion and the colon mucosa was carefully examined including a retroflexed view of the rectum. Findings and interventions are described below. Procedure Difficulty: Colon was long and there was some loop formation Findings: Terminal Ileum: Not evaluated Cecum: Partially evaluated due to fair prep with undigested vegetable matter which could not be suctioned Ascending Colon: A 1.8 to 2 cms sessile polyp in the distal ascending colon - removed with a hot snare. Transverse Colon: Two 5 to 8 mm sessile polyps - removed with a hot and a cold snare Descending Colon: Moderate diverticulosis Sigmoid Colon: Moderate diverticulosis Rectum: A 2.5 to 3 cms sessile polyp on a short pedicle in the distal rectum (just inside the anal verge) at 4-5 cms. There was a hemorrhagic area over part of the surface indicating recent bleeding. Polyp was removed with a hot snare. Polypectomy site was closed with 2 hemoclips and marked by Marlena ink. A 2nd 2 cm sessile polyp with a short pedicle adjacent to the 1st polyp - polyp was removed with a hot snare. Polypectomy site was closed with 1 hemoclip and marked by Marlena ink.. Ano-rectum: Normal Colon preparation: Good to fair after copious irrigation. There was undigested vegetable matter in the cecum, proximal AC, hepatic and splenic flexures which could not be suctioned Impression and Post Procedure Diagnosis: Endoscopy Findings: ESOPHAGUS: Small hiatal hernia STOMACH: Prominent and nodular appearing gastric folds - biopsied. Mild gastric antral erythema. Biopsies were obtained to check for H pylori. DUODENUM: Normal - biopsied to check for celiac sprue Colonoscopy Findings: Three medium to large sized and two small polyps removed Moderate diverticulosis seen in the left colon Prep was good to fair despite copious irrigation. There was undigested vegetable matter in the cecum, proximal AC, hepatic and splenic flexures which could not be suctioned Plan: I will contact the patient with pathology results Ok to initiate anticoagulation on 08/11/23 (pt can be started on enoxaparin in the am if she needs to be started on anticoagulation prior to 08/11/23) Repeat Colonoscopy interval based on path results - in 6-12 months if polyps are adenomatous (to check polypectomy sites in the rectum) and due to fair prep. Above findings were reviewed with the patient and colon polyps and diverticulosis handouts were given in the discharge area BIOPSIES SHOWED: A. Small bowel, biopsy: -Small-bowel/duodenal mucosa with preserved villi and no specific change; no evidence of celiac disease. B. Gastric antrum, biopsy: -Gastric antral mucosa with reactive/regenerative changes, dilated lamina propria capillaries, and minimal chronic inactive gastritis; negative for intestinal metaplasia and dysplasia (see comment). C. Gastric fold, biopsy: -Gastric body mucosa with reactive changes and minimal chronic inactive gastritis; negative for intestinal metaplasia and dysplasia (see comment). D. Colon, ascending, polyp: -Tubular adenoma; negative for high-grade dysplasia and carcinoma. E. Colon, transverse, polyp: -Tubular adenoma; negative for high-grade dysplasia and carcinoma. F. Colon, rectal polyps: -Tubulovillous adenoma with foci suspicious for high- grade dysplasia, appears completely excised; negative for carcinoma (see comment). -Tubulovillous adenoma (cannot evaluate margin); negative for high-grade dysplasia and carcinoma. Comment: (F): There is no submucosal invasion and this lesion lacks metastatic potential. Although the adenoma appears excised endoscopic follow-up is warranted to ensure there is no residual lesion
[2023-08-06 15:41] LABS: Glucose, Whole Blood 99 mg/dL (60-115)
--- NOTE | 2023-08-06 15:47 | HO.PM.IMPN ---
Subjective Subjective Date of Service: 08/06/23 Interval History: some cough NPO for scope Review of Systems Review of Systems: Yes all other systems are reviewed and are negative Physical Exam Vital Signs: Vital Signs: Last Vital Signs Temp 97.6 F 08/06/23 15:39 Pulse 57 08/06/23 15:39 Resp 19 08/06/23 15:39 BP 154/68 H 08/06/23 15:39 Pulse Ox 90 L 08/06/23 15:39 O2 Del Method Nasal Cannula 08/06/23 15:39 O2 Flow Rate 3 08/06/23 15:15 Oxygen Flow Rate 4 08/01/23 13:21 BMI result Body Mass Index 43.9 Gen: in no acute distress HEENT: sclera anicteric, moist mucus membranes Neck: supple Lungs: diminished Heart: regular, 2/6 systolic murmur at base Abd: soft, non-tender, non-distended, obese Ext: trace bilateral leg edema Skin: warm/well-perfused Neuro: alert and oriented x3, no focal findings Psych: appropriate affect Objective Data Active Medications Acetaminophen (Acetaminophen 325 Mg Tablet) 650 mg PO Q6H PRN PRN Reason: Pain, Mild (Pain Scale 1-3) Last Admin: 08/05/23 13:23 Dose: 650 mg Documented By: JS Ascorbic Acid (Ascorbic Acid 500 Mg Tablet) 500 mg PO DAILY [facility] Last Admin: 08/06/23 07:45 Dose: 500 mg Documented By: NANCY Atorvastatin Calcium (Atorvastatin Calcium 80 Mg Tablet) 80 mg PO BEDTIME [facility] Last Admin: 08/05/23 21:38 Dose: 80 mg Documented By: VARGAS Benzonatate (Benzonatate 100 Mg Capsule) 200 mg PO TID PRN PRN Reason: Cough Last Admin: 08/05/23 13:23 Dose: 200 mg Documented By: JS Carvedilol (Carvedilol 25 Mg Tablet) 25 mg PO BID@0900,1500 [facility]; Protocol Last Admin: 08/06/23 07:45 Dose: 25 mg Documented By: NANCY Dextrose (Dextrose 50 % 25 Gm/50 Ml Syringe) 25 gm IVPUSH Q15M PRN; Protocol PRN Reason: per Hypoglycemia Standing Ord. Last Admin: 08/06/23 07:46 Dose: 12.5 gm Documented By: NANCY Comments: Pt. NPO, POC 89 Docusate Sodium (Docusate Sodium 100 Mg Capsule) 100 mg PO DAILY PRN PRN Reason: Constipation Last Admin: 08/05/23 15:33 Dose: 100 mg Documented By: JS Ferrous Sulfate (Ferrous Sulfate 324 Mg Tablet.Dr) 324 mg PO DAILY [facility] Last Admin: 08/06/23 07:45 Dose: 324 mg Documented By: NANCY Fluoxetine HCl (Fluoxetine Hcl 20 Mg Capsule) 40 mg PO DAILY [facility] Last Admin: 08/06/23 07:45 Dose: 40 mg Documented By: NANCY Furosemide (Furosemide 40 Mg Tablet) 40 mg PO BID@0900,1800 [facility]; Protocol Last Admin: 08/06/23 07:44 Dose: 40 mg Documented By: NANCY Glucose (Glucose Gel 15 Gm Gel..Gram.) 15 gm PO Q15M PRN; Protocol PRN Reason: per Hypoglycemia Standing Ord. Guaifenesin/Dextromethorphan (Guaifenesin Dm 100/10/5 Ml 5 Ml Syrup) 5 ml PO Q4H PRN PRN Reason: coufgh Last Admin: 08/05/23 13:23 Dose: 5 ml Documented By: JS Hydralazine HCl (Hydralazine Hcl 25 Mg Tablet) 25 mg PO BID@0900,1500 [facility]; Protocol Last Admin: 08/06/23 07:45 Dose: 25 mg Documented By: NANCY Vancomycin HCl 500 mg/ Sodium (Chloride) 110 mls @ 110 mls/hr IV Q24H [facility] Last Infusion: 08/05/23 20:00 Dose: Infused Documented By: VARGAS Cefepime HCl 0.5 gm/ Sodium (Chloride) 50 mls @ 100 mls/hr IV Q24H [facility] Last Infusion: 08/06/23 11:09 Dose: Infused Documented By: JS Insulin Glargine (Insulin Glargine,Hum.Rec.Anlog 100 Unit/Ml 10 Ml Vial) 25 unit SUBCUT BEDTIME [facility] Last Admin: 08/05/23 21:38 Dose: 25 unit Documented By: VARGAS Insulin Human Lispro (Insulin Lispro 100 Unit/Ml 3 Ml Vial) 0 unit SUBCUT QIDACHS [facility]; Protocol Last Admin: 08/06/23 11:09 Dose: Not Given Documented By: JS Non-Admin Reason: NPO Lisinopril (Lisinopril 20 Mg Tablet) 20 mg PO DAILY [facility]; Protocol Last Admin: 08/06/23 07:44 Dose: 20 mg Documented By: NANCY Loratadine (Loratadine 10 Mg Tablet) 10 mg PO DAILY [facility] Last Admin: 08/06/23 07:45 Dose: 10 mg Documented By: NANCY Multivitamins/Vitamin C (Multivitamin Tablet) 1 tab PO DAILY [facility] Last Admin: 08/06/23 07:45 Dose: 1 tab Documented By: NANCY Ondansetron HCl (Ondansetron Hcl 4 Mg/2 Ml Vial) 4 mg IVPUSH Q8H PRN PRN Reason: Nausea and Vomiting Last Admin: 08/05/23 21:38 Dose: 4 mg Documented By: VARGAS Pantoprazole Sodium (Pantoprazole Sodium 40 Mg/10 Ml Vial) 40 mg IVPUSH BID@0630,1630 [facility] Last Admin: 08/06/23 06:39 Dose: 40 mg Documented By: VARGAS Pharmacy Consult (Consult Rx Vancomycin Dosing) 1 each MISCELLANE DAILY [facility] Polyethylene Glycol/Electrolytes (Peg 3350/Na Sulf,Bicarb,Cl/Kcl 4,000 Ml Soln.Recon) 4,000 ml PO ONCE@1400 [facility] Last Admin: 08/06/23 13:25 Dose: Not Given Documented By: JS Non-Admin Reason: Already recieved Sodium Chloride (0.9 % Sodium Chloride Flush 3 Ml Syringe) 3 ml IVFLUSH QSHIFT [facility] Last Admin: 08/06/23 07:46 Dose: 3 ml Documented By: NANCY Labs 08/06/23 08:19 08/06/23 08:19 Labs: Laboratory Results - last 24 hr 08/01/23 08/05/23 08/05/23 21:51 07:12 16:47 Hold Purple Top Estim Creat Clear Calc Estimated GFR POC Glucose 205 H Tiss Transglutamin IgG <1.0 Tiss Transglutamin IgA <1.0 Ur L.pneumophila Ag Not Detected Ur Strep pneumoniae Ag Not Detected Blood Type Antibody Screen 08/05/23 08/06/23 08/06/23 20:16 07:11 08:19 Hold Purple Top SEE NOTE Estim Creat Clear Calc 22.4 Estimated GFR 17 POC Glucose 171 H 89 Tiss Transglutamin IgG Tiss Transglutamin IgA Ur L.pneumophila Ag Ur Strep pneumoniae Ag Blood Type O Positive Antibody Screen NEGATIVE 08/06/23 08/06/23 08/06/23 10:22 11:35 12:57 Hold Purple Top Estim Creat Clear Calc Estimated GFR POC Glucose 105 98 90 Tiss Transglutamin IgG Tiss Transglutamin IgA Ur L.pneumophila Ag Ur Strep pneumoniae Ag Blood Type Antibody Screen 08/06/23 15:37 Hold Purple Top Estim Creat Clear Calc Estimated GFR POC Glucose 99 Tiss Transglutamin IgG Tiss Transglutamin IgA Ur L.pneumophila Ag Ur Strep pneumoniae Ag Blood Type Antibody Screen Assessment and Plan (1) Atrial flutter: Status: Acute (2) Community acquired pneumonia: Status: Acute Plan d6 68yo F with HFpEF, CKD3, DM2, HTN, AMY on CPAP, chronic hypoxic resp failure on 2L home O2 presenting with 1wk of worsening dyspnea after URI symptoms found to be septic from multifocal pneumonia complicated by CHF exacerbation + new-onset atrial flutter/RVR sepsis with acute/chronic hypoxic respiratory failure due to CAP - MRSA swab positive, vancomycin + cefepime 08/02-, BCx negative, Legionella/pneumococcal UAgs negative, change to doxy + amox-clav upon discharge, end date 08/09 - weaned O2 to home dose of 2L new-onset atrial flutter/RVR - continue carvedilol for rate control - hold off on further anticoagulation until GI bleeding is addressed as below - continue cardiac monitoring - Cardiology consulted; TTE as below anemia of CKD3 with occult blood positive stool - transfused 1u PRBCs 08/03/23 - GI consulted, plan EGD + C-scope 08/06/23 acute/chronic HFpEF - switch from IV to PO furosemide - TTE 07/15/23: 1. Normal LV ejection fraction 60 65% with elevated filling pressures 2. Mildly dilated left atrium 3. [id number] aortic stenosis 4. Mildly dilated ascending aorta at 3.7 cm 5. No gross pericardial effusion PACHECO/CKD3 - Cr improved DM2 - basal-bolus insulin [reduced Lantus dose due to hypoglycemia] HTN - hydralazine, carvedilol, lisinopril [increased dose from 10 to 20 mg/d] HLD - atorvastatin AMY - CPAP at night mood disorder - fluoxetine VTE ppx - SCDs dispo - plan home with VNA after GI evaluation In my clinical judgment, the patient requires continued inpatient hospitalization for the following reasons: IV ABX, endoscopy Time Spent With Patient Time: Total time managing care of this patient today __40__ minutes. Quality Stroke Does the patient have a stroke diagnosis?: No VTE Prior VTE?: No VTE Risk Level:: Medical - moderate - high VTE Device Contraindication: Treatment Not Indicated VTE Drug Contraindication: N/A - Med Ordered
[2023-08-06 16:53] LABS: Vancomycin Random 17.4 mcg/mL (15-20)
[2023-08-06 16:59] LABS: Immunoglobulin A 337 mg/dL (70-320)
[2023-08-06] MEDS: vancomycin HCL 500 MG in 0.9 % Sodium Chloride 100 ML 110 MG IV (17:19)
[2023-08-06 19:35] LABS: Glucose, Whole Blood 128 mg/dL (60-115)
[2023-08-06] MEDS: Insulin Glargine,Hum.rec.anlog 100 UNIT/ML 10 ML VIAL 25 UNIT SUBCUT (20:49)
[2023-08-06] MEDS: Atorvastatin Calcium 80 MG TABLET PO (20:49)
[2023-08-07] MEDS: guaiFENesin DM 100/10/5 ML 5 ML SYRUP PO (01:35)
[2023-08-07 03:27] VITALS: BP 172/68; PULSE 69; RESP 20; TEMP 36.7; O2SAT 93
[2023-08-07] MEDS: Pantoprazole Sodium 40 MG/10 ML VIAL IVPUSH (05:46)
[2023-08-07 06:36] LABS: Hematocrit 26.9 % (37.0-47.0); Hemoglobin 8.3 g/dl (12.0-16.0)
[2023-08-07 07:45] LABS: Creatinine Clr Calc Pharmacy 22.7; Estimated Glomerular Filt Rate 17
[2023-08-07 07:50] VITALS: BP 144/76; PULSE 67; RESP 20; TEMP 36.5; O2SAT 96
[2023-08-07 08:04] LABS: Glucose, Whole Blood 262 mg/dL (60-115)
[2023-08-07] MEDS: Insulin Lispro 100 UNIT/ML 3 ML VIAL SUBCUT ×2 (08:27→11:58)
[2023-08-07] MEDS: Ascorbic Acid 500 MG TABLET PO (08:30)
[2023-08-07] MEDS: hydrALAZINE HCl 25 MG TABLET PO ×2 (08:30→14:50)
[2023-08-07] MEDS: Multivitamin TABLET 1 TAB PO (08:30)
[2023-08-07] MEDS: Loratadine 10 MG TABLET PO (08:30)
[2023-08-07] MEDS: FLUoxetine HCl 20 MG CAPSULE 40 MG PO (08:31)
[2023-08-07] MEDS: Furosemide 40 MG TABLET PO (08:31)
[2023-08-07] MEDS: carvediloL 25 MG TABLET PO ×2 (08:32→14:50)
[2023-08-07] MEDS: lisinopriL 20 MG TABLET PO (08:32)
[2023-08-07] MEDS: 0.9 % Sodium Chloride Flush 3 ML SYRINGE IVFLUSH (08:33)
--- NOTE | 2023-08-07 09:15 | HO.POSTANES ---
Post Anesthesia Evaluation Post Anesthesia Evaluation Date of Service: 08/07/23 Vital Signs: Vital Signs Temp Pulse Resp BP Pulse Ox O2 Del Method O2 Flow Rate 08/07/23 07:50 97.7 F 67 20 144/76 H 96 Nasal Cannula 2 08/07/23 03:27 98.1 F 69 20 172/68 H 93 Nasal Cannula 2 08/06/23 23:19 98.5 F 68 20 144/66 H 93 Nasal Cannula 2 08/06/23 21:49 148/77 H Anesthesia: Monitored Mental Status: Awake Pain Control: Satisfactory Nausea/Vomiting: None Hydration: Adequate Anesthesia-Related Issues: No Anes. Related Issues
--- NOTE | 2023-08-07 09:50 | P.DS_ITS ---
DS: Providers Provider Date of Service: 08/07/23 Date of admission: 08/01/23 17:23 Date of discharge: 08/07/23 Primary care physician: Sadi Harden MD Admitting clinician: Lars Presley Attending physician on admission: Ervin Pryor Consults: 08/01/23 17:28 Consult to Cardiology Routine Consulting [place] [facility] Reason for consultation: New onset Aflutter with RVR, HFpEF exacerbation 08/04/23 07:42 Consult to Gastroenterology Routine Consulting Provider[place] [facility] Reason for consultation: Anemia, FOBT+ 08/05/23 07:48 Consult to Pulmonology Routine Consulting Provider[place] [facility] Reason for consultation: Pulm eval req by anesthesia pre-EGD Attending physician on discharge: Real Morris Discharging clinician: Joana Bales DS: Diagnosis Discharge Diagnosis (1) Atrial flutter: Status: Acute (2) Community acquired pneumonia: Status: Deleted DS: Summary Hospital Course Hospital Course: from admission H+P by hospitalist RADHA Walker, 08/01/23: Pt is a 68-year-old female with a PMH significant for?HFpEF, CKD 3, insulin- dependent diabetes type 2, HLD, HTN, AMY on CPAP at bedtime, and chronically on 2L O2 at home who presents to the ED with?with increased SOB and decreased O2 saturation for the past few days. Patient states symptoms began approximately 1 week ago with URI like symptoms: Patient with nasal congestion, sore throat, rhinorrhea, and earache. Symptoms resolved but then patient began developing increased shortness of breath, pulmonary congestion, and cough occasionally productive of yellowish sputum. Patient denies palpitations but daughter noted patient's pulse has been in the 100s-130s the past 2-3 days, while her O2 sat has been as low as 83% on her normal 2L O2, which pt then increased to 4L. She denies a hx of Afib. Denies any chest pain/pressure. No nausea, vomiting, abdominal pain. Pt denies any increase in lower leg edema. In the ED patient with temperature of 99.7 degrees, tachycardia up to 133, and satting at 98% O2 on 4 L. Labs were significant for leukocytosis of 22.0, H&H of 7.9/25.1, BUN 54, creatinine 3.09, AST 56, ALT 65, alk-phos 169, initial troponin 26.5, BNP 1409, Patient tested negative for influenza type a and B, our SV, and COVID. CXR showed new multifocal airspace opacities concerning for atypical pneumonia. Echocardiogram on 07/15/2023 showed normal LVEF of 60-65% with mildly dilated left atrium, ceau-xr-umoeofrf aortic stenosis, and mildly dilated ascending aorta of 3.7 cm. EKG demonstrated atrial flutter with nonspecific ST and T-wave abnormalities. Pt was treated with Lasix 40 mg IV, cefepime, vancomycin, and half liter of IVF. Pt will be admitted to the hospital on telemetry for treatment further evaluation of acute hypoxic respiratory failure in the setting of new onset a flutter with RVR, HFpEF exacerbation, and multifocal pneumonia. 68yo F with HFpEF, CKD3, DM2, HTN, AMY on CPAP, and chronic hypoxic resp failure on 2L home O2. She presented with 1wk of worsening dyspnea after URI symptoms and was found to be septic from multifocal pneumonia. Hospitalization was complicated by CHF exacerbation + new-onset atrial flutter/RVR and worsening anemia with FOBT+ stool. Hospital course by problem: sepsis with acute/chronic hypoxic respiratory failure due to CAP - MRSA swab positive, vancomycin + cefepime 08/02-08/06. Blood cultures negative; discharged on doxycycline plus cefuroxime for 4 days. Weaned O2 to home dose of 2L. new-onset atrial flutter/RVR - Two episodes, the second lasting 12 hours. Converted to NSR. Continue carvedilol for rate control. After EGD/colonoscopy as below, start anticoagulation with apixaban 5 mg bid for stroke prevention on 08/11 per gastroenterology. 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 anemia of CKD3 with occult blood positive stool - Transfused 1u PRBCs 08/03/23 with improvement in H+H. GI consulted and EGD + C-scope done 08/06/23 showing: Endoscopy findings: Esophagus: Small hiatal hernia Stomach: Prominent and nodular appearing gastric folds-biopsied. Mild gastric antral erythema. Biopsies were obtained to check for H pylori. Duodenum: Normal-biopsied to check for celiac sprue Colonoscopy findings: Three medium to large size and 2 small polyps removed A moderate diverticulosis seen in the left colon Prep was good to fair despite copious irrigation. There was a digestive vegetable matter in the cecum, proximal AA C, hepatic and splenic flexures which could not be suctioned -Pathology reports pending for biopsies. -Inpia AC on 08/11 -Repeat colonoscopy in 6-12 months pending path reports -Follow up with gastroenterology acute/chronic HFpEF - Diuresed with IV furosemide then switched to her usual oral furosemide. Recent TTE 07/15/23: 1. Normal LV ejection fraction 60 65% with elevated filling pressures 2. Mildly dilated left atrium 3. Xybb-tp-[id number] aortic stenosis 4. Mildly dilated ascending aorta at 3.7 cm 5. No gross pericardial effusion PACHECO/CKD3 - Cr improved with the above measures. She was discharged home with VNA services recommended but refused and will need Cardiology, Nephrology, Gastroenterology, and Primary Care follow-up. Status at Discharge Functional status at discharge: uses cane/walker Time Spent with Patient Time attestation: Total time managing care of this patient today ____ minutes. Discharge coordination time: Greater than 30 minutes Quality: Safe Use of Opioids Does Pt have an Active Cancer Diagnosis on the Problem List?: No Quality: Stroke Does the patient have a stroke diagnosis?: No Physical Exam Vital Signs: Vital Signs: Last Vital Signs Temp 97.7 F 08/07/23 07:50 Pulse 67 08/07/23 07:50 Resp 20 08/07/23 07:50 BP 144/76 H 08/07/23 07:50 Pulse Ox 96 08/07/23 07:50 O2 Del Method Nasal Cannula 08/07/23 07:50 O2 Flow Rate 2 08/07/23 07:50 Oxygen Flow Rate 4 08/01/23 13:21 BMI result Body Mass Index 43.9 DS: Data Data Completed and Pending Completed studies during hospitalization [Text1]: Procedures Insertion of Infusion Device into Superior Vena Cava, Percutaneous Approach (09/12/22) Ultrasonography of Superior Vena Cava, Guidance (09/12/22) Pending studies at discharge: Pending at discharge 08/06/23 14:19 Surgical [PTH] Routine Labs on day of discharge: Laboratory Results - last 24 hr 08/05/23 08/06/23 08/06/23 07:12 10: 11:35 Hgb Hct Creatinine Estim Creat Clear Calc Estimated GFR POC Glucose 105 98 Random Vancomycin IgA 337 H Tiss Transglutamin IgG <1.0 Tiss Transglutamin IgA <1.0 08/06/23 08/06/23 08/06/23 12:57 15:37 16:33 Hgb Hct Creatinine Estim Creat Clear Calc Estimated GFR POC Glucose 90 99 Random Vancomycin 17.4 IgA Tiss Transglutamin IgG Tiss Transglutamin IgA 08/06/23 08/07/23 08/07/23 19:28 05:56 07:53 Hgb 8.3 L Hct 26.9 L Creatinine 2.71 H Estim Creat Clear Calc 22.7 Estimated GFR 17 POC Glucose 128 H 262 H Random Vancomycin IgA Tiss Transglutamin IgG Tiss Transglutamin IgA Discharge Plan Discharge Anticipated Discharge Date/Time: 08/06/23 18:55 Patient Disposition: Home Health Service Discharge Diagnosis: sepsis with acute/chronic hypoxic respiratory failure due to CAP new-onset atrial flutter/RVR anemia of CKD3 with occult blood positive stool acute/chronic HFpEF PACHECO/CKD3 Referrals: Sadi Harden MD [Primary Care Provider] - 1 Week José Miguel Vale MD [Physician] - 1 Week Robles Mike MD [Physician] - 1 Week Discharge Medications: New Eliquis 5 mg tablet 5 mg PO BID Qty: 60 1RF Rx Instructions: INITIATE ON 08/11 Continued (DME) FreeStyle Robert 2 Sensor Kit See Rx Instructions .Route Qty: 2 5RF Rx Instructions: As directed Lantus Solostar U-100 Insulin 100 unit/mL (3 mL) insulin pen 70 unit subcut BEDTIME Qty: 15 12RF (DME) FreeStyle Robert 2 [place] Misc See Rx Instructions .Route Qty: 1 0RF Rx Instructions: As directed lisinopril 10 mg tablet 10 mg PO DAILY Qty: 90 3RF Protocol: Hold for SBP< HOLD for SBP < : 90 multivitamin Tablet 1 tab PO DAILY aspirin 81 mg Tablet,Chewable 81 mg PO DAILY Qty: 30 0RF ferrous sulfate 325 mg (65 mg iron) Tablet 325 mg PO DAILY cholecalciferol (vitamin D3) 1,250 mcg (50,000 unit) capsule 1,250 mcg PO PISANO@0900 fluoxetine 20 mg capsule 40 mg PO DAILY sodium polystyrene sulfonate Powder 15 g PO 3XW atorvastatin 80 mg tablet 80 mg PO BEDTIME carvedilol 25 mg tablet 25 mg PO BID@0900,1500 Rx Instructions: must administer with a meal/food hydralazine 25 mg tablet 25 mg PO BID@0900,1500 insulin lispro 100 unit/mL insulin pen See Rx Instructions subcut QID Protocol: Insulin Correction Scale Less than or equal to 110 ---- Give (units): 0 111 to 150 Give (units): 0 151 to 200 Give (units): 2 201 to 250 Give (units): 4 251 to 300 Give (units): 6 301 to 350 Give (units): 8 Greater than 350 Give (units): 10 Call MD if Blood Glucose > : 350 Rx Instructions: Sliding Scale: 150-200 Give 2 units 201-250 Give 4 units 251-300 Give 6 units 301-350 Give 8 units 351-400 Give 10 units 401-450 Give 12 units > 450 Give 12 units & call MD subcutaneously 4 times a day; fexofenadine 180 mg tablet 180 mg PO DAILY ascorbic acid (vitamin C) 500 mg tablet 500 mg PO DAILY Changed furosemide 40 mg tablet 40 mg PO BID Qty: 60 2RF Discharge Orders: Discharge Order (Routine); Ordered 08/07/23 Ordered By: Joana Bales Diet: Advance to usual diet Activity on Discharge: As tolerated Stand Alone Forms: Patient Portal Discharge page Other Ambulatory Orders: Basic Metabolic Panel Fasting (Routine) Timeframe: 1 Week Facility: [facility] - Location: Laboratory Ordered By: Joana Bales Complete Blood Count Auto Diff (Routine) Timeframe: 1 Week Facility: [facility] - Location: Laboratory Ordered By: Joana Bales Care Plan Goals: respiratory health cardiac health renal health stroke prevention Health Concerns: sepsis with acute/chronic hypoxic respiratory failure due to CAP - doxycycline monohydrate 100 mg twice daily PLUS cefuroxime 500 mg twice daily for 5 days - weaned O2 to home dose of 2L new-onset atrial flutter/RVR - continue carvedilol for rate control - apixaban 5 mg twice daily for stroke prevention- START ON 08/11 - follow up with Dr Penn in 2 weeks - check CBC in 1 week anemia of CKD3 with occult blood positive stool - continue ferrous sulfate - follow up with Dr Vale in 2 weeks acute/chronic HFpEF - continue furosemide- INCREASE TO 40MG TWICE DAILY - Low-sodium diet: less than 2000 mg of sodium daily. Weigh yourself daily and call your doctor if your weight goes up by more than 3 lb/day or 5 lb/week. - follow up with Dr Penn as above - check kidney function electrolytes in 1 week PACHECO/CKD3 - renal function at baseline - follow up with your copy chaser as per usual schedule Please follow up with your primary care doctor within 1 week. Return to the hospital if you experience recurrent or worsening symptoms. Plan of Treatment: as above Assessment: See Discharge Summary. Discharge Date/Time: 08/07/23 15:20
[2023-08-07 10:55] VITALS: BP 158/62; PULSE 67; RESP 20; TEMP 36.9; O2SAT 96
[2023-08-07 11:04] LABS: Glucose, Whole Blood 271 mg/dL (60-115)
--- NOTE | 2023-08-07 11:37 | MHC.CM.PN ---
EMR reviewed and per MD rounds pt is medically cleared for DC today - home with family support. PT recommended home with services, patient continues to decline any in home services, but is considering requesting a referral for outpt PT from her PCP. Son will transport, pick out hand at 3pm. RN aware. IMM delivered.
[2023-08-07] MEDS: cefEPime HCl 0.5 GM in 0.9 % Sodium Chloride 50 ML IV (12:01)
[2023-08-08 16:13] LABS: Mitochondrial Antibodies NEGATIVE (NEGATIVE)
[2023-08-09 13:43] LABS: Smooth Muscle Antibody <20 U (<20)
== END 2023-08-07 15:20 | disposition home health service (06) | DRG 193 ==
LOC: HO.ED 16:05 → HO.EDOVER 17:31 → HO.IMC 08-02 21:14
PROVIDERS: Family Medicine; Internal Medicine Gastroenterology; Physician Assistant; Admitting Provider Student in an Organized Health Care Education/Training Program; Emergency Provider Student in an Organized Health Care Education/Training Program; PCP Family Medicine; Visit Provider Physician Assistant
PROC: 0DB98ZX Excision of Duodenum, Via Natural or Artificial Opening Endoscopic, Diagnostic (ICD-10-PCS; principal; 2023-08-06 13:30)
DX: J18.9 Pneumonia, unspecified organism (principal); I50.33 Acute on chronic diastolic (congestive) heart failure; J96.21 Acute and chronic respiratory failure with hypoxia; K57.31 Diverticulosis of large intestine without perforation or abscess with bleeding; K29.71 Gastritis, unspecified, with bleeding; I48.92 Unspecified atrial flutter; D62 Acute posthemorrhagic anemia; I13.0 Hypertensive heart and chronic kidney disease with heart failure and stage 1 through stage 4 chronic kidney disease, or unspecified chronic kidney disease; Z68.41 Body mass index [BMI] 40.0-44.9, adult; N17.9 Acute kidney failure, unspecified; D63.1 Anemia in chronic kidney disease; N18.30 Chronic kidney disease, stage 3 unspecified; E11.22 Type 2 diabetes mellitus with diabetic chronic kidney disease; E66.01 Morbid (severe) obesity due to excess calories; G47.33 Obstructive sleep apnea (adult) (pediatric); K63.5 Polyp of colon; K62.1 Rectal polyp; K44.9 Diaphragmatic hernia without obstruction or gangrene; E11.649 Type 2 diabetes mellitus with hypoglycemia without coma; K75.81 Nonalcoholic steatohepatitis (NASH); F39 Unspecified mood [affective] disorder; I35.0 Nonrheumatic aortic (valve) stenosis; E78.00 Pure hypercholesterolemia, unspecified; Z20.822 Contact with and (suspected) exposure to COVID-19; Z22.322 Carrier or suspected carrier of Methicillin resistant Staphylococcus aureus; Z99.81 Dependence on supplemental oxygen; Z87.891 Personal history of nicotine dependence; Z79.4 Long term (current) use of insulin; Z79.82 Long term (current) use of aspirin; Z79.899 Other long term (current) drug therapy
CPT/HCPCS: 0241U; 36415; 71045; 71046; 80048; 80053; 80202; 82272; 82565; 82607; 82728; 82746; 82784; 82947; 83540; 83605; 83615; 83690; 83735; 83880; 84145; 84484; 85007; 85014; 85018; 85027; 85045; 86015; 86364; 86381; 86704; 86706; 86803; 86850; 86900; 86901; 86923; 87040; 87340; 87449; 87640; 87641; 87899; 88305; 88342; 93005; 97162; 99285; J0456; J0692; J0696; J1100; J1940; J2405; J3370; P9016

== ENCOUNTER → 2023-08-01 17:23 | Outpatient (BNV) | payer MEDICARE, SELFPAY | PROVIDERS: Admitting Provider Student in an Organized Health Care Education/Training Program; Emergency Provider Student in an Organized Health Care Education/Training Program; PCP Family Medicine; Visit Provider Internal Medicine Cardiovascular Disease | DX: I48.92 Unspecified atrial flutter (principal); J18.9 Pneumonia, unspecified organism; D64.9 Anemia, unspecified | CPT/HCPCS: 99222; 99232 ==

== ENCOUNTER → 2023-08-01 17:23 | Outpatient (BNV) | payer MEDICARE, SELFPAY | PROVIDERS: Admitting Provider Student in an Organized Health Care Education/Training Program; Emergency Provider Student in an Organized Health Care Education/Training Program; PCP Family Medicine; Visit Provider Internal Medicine | DX: G47.33 Obstructive sleep apnea (adult) (pediatric) (principal); Z99.89 Dependence on other enabling machines and devices; E66.9 Obesity, unspecified; J18.9 Pneumonia, unspecified organism; Z22.322 Carrier or suspected carrier of Methicillin resistant Staphylococcus aureus | CPT/HCPCS: 99222 ==

== ENCOUNTER → 2023-08-01 17:23 | Outpatient (BNV) | payer MEDICARE, SELFPAY | PROVIDERS: Admitting Provider Student in an Organized Health Care Education/Training Program; Emergency Provider Student in an Organized Health Care Education/Training Program; PCP Family Medicine; Visit Provider Internal Medicine Gastroenterology | DX: D64.9 Anemia, unspecified (principal); R19.5 Other fecal abnormalities; K29.70 Gastritis, unspecified, without bleeding; D12.3 Benign neoplasm of transverse colon; D12.2 Benign neoplasm of ascending colon; D12.8 Benign neoplasm of rectum; K57.90 Diverticulosis of intestine, part unspecified, without perforation or abscess without bleeding | CPT/HCPCS: 43239; 45381; 45385; 99223 ==

== ENCOUNTER → 2023-08-01 17:23 | Outpatient (BNV) | payer MEDICARE, SELFPAY | PROVIDERS: Admitting Provider Student in an Organized Health Care Education/Training Program; Emergency Provider Student in an Organized Health Care Education/Training Program; PCP Family Medicine; Visit Provider Student in an Organized Health Care Education/Training Program | DX: I48.92 Unspecified atrial flutter (principal); J18.9 Pneumonia, unspecified organism | CPT/HCPCS: 99223; 99232; 99239; G0180 ==

== ENCOUNTER 2023-08-27 10:42 | Outpatient (AMB) | payer MEDICARE, SELFPAY ==
--- NOTE | 2023-08-27 10:58 | MHC.OFFVIS ---
Intake Vital Signs 08/27/23 10:59 Height 5 ft 2 in Weight 235 lb BMI 43.0 BP 134/72 Blood Pressure Location Lt brachial Position Sitting Pulse 66 Pulse Source Pulse Oximeter Pulse Oximetry (%) 99 Oxygen Delivery Method Nasal Cannula Oxygen Flow Rate 3 Intake Visit Reasons: hypertension Intake Note: pt is here for follow up and states she is still recovering from pneumonia, she has to stay on oxygen when moving around the home also, prior to this hospital stay she was prn oxygen. There is some dizziness, not using c-pap since the hospital, pt has questions. 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: No Allergies penicillin V Allergy (Severe, Verified 08/27/23 13:19) joint swelling and rash amlodipine [From [facility]] Adverse Reaction (Intermediate, Verified 08/27/23 13:19) edema Medication List - Last Reconciled 08/27/23 by Олег Morillo MD apixaban (Eliquis) 5 mg PO BID ascorbic acid (vitamin C) 500 mg PO DAILY aspirin 81 mg PO DAILY atorvastatin 80 mg PO BEDTIME carvedilol 25 mg PO BID@0900,1500 cholecalciferol (vitamin D3) 1,250 mcg PO PISANO@0900 ferrous sulfate 325 mg PO DAILY fexofenadine 180 mg PO DAILY fluoxetine 40 mg PO DAILY FreeStyle Robert 2 [place] (flash glucose scanning reader) As directed NS FreeStyle Robert 2 Sensor (flash glucose sensor) As directed NS furosemide 40 mg PO BID hydralazine 25 mg PO BID@0900,1500 insulin glargine (Lantus Solostar U-100 Insulin) 70 units (0.7 mL) subcut BEDTIME insulin lispro See Protocol Sliding Scale: 150-200 Give 2 units 201-250 Give 4 units 251-300 Give 6 units 301-350 Give 8 units 351-400 Give 10 units 401-450 Give 12 units > 450 Give 12 units & call MD subcutaneously 4 times a day; lisinopril 10 mg See Protocol PO DAILY multivitamin 1 tab PO DAILY sodium polystyrene sulfonate 15 grams PO 3XW Do you need a note to return to daycare/school/sports/work: No HPI hypertension HPI Details 68 YEARS OLD FEMALE WITH MORBID OBESITY AND DIAGNOSIS OF OBSTRUCTIVE SLEEP APNEA, COMES FOR FOLLOW-UP AFTER RECENT HOSPITALIZATION. SHE WAS IN [facility] FROM --08/07 , FOR TREATMENT OF ATRIAL FLUTTER WITH RAPID RATE AND COMMUNITY-ACQUIRED PNEUMONIA. BECAUSE OF THE THIS SICKNESS SHE HAS NOT USE THE CPAP SINCE THE MID JULY. SHE WAS AFRAID THAT THE DUE TO USE OF CPAP SHE WOULD HAVE INCREASED COUGH AND CHEST CONGESTION. [facility] Medical History MRSA carrier CAP (community acquired pneumonia) Morbid (severe) obesity due to excess calories AMY on CPAP Chronic renal failure Secondary aldosteronism Acute renal failure Nocturnal hypoxemia Morbid obesity Diabetes type 2, controlled HTN (hypertension) Morbid obesity due to excess calories AMY (obstructive sleep apnea) Pneumonia Obesity Elevated creatine kinase Anemia Congestive heart failure Bilateral lower extremity edema High cholesterol Diabetes type 2, uncontrolled Hypertension, essential Surgical History History of surgery History of D&C Family History Father Stroke Mother Stroke Hypertension Diabetes Maternal Grandmother Diabetes Hypertension Stroke Sister Diabetes Breast cancer Son Bipolar 1 disorder Overweight Other Mental health problem Substance abuse Social History (Reviewed 08/27/23 @ 11:09 by Shannan Barney [facility]) Household Members: Children Housing: House Do you presently have visiting nurse or other home services: No Unable to assess alcohol history related to: Unable to respond Alcohol intake: never Patient Tobacco Use Status: Former Tobacco user e-Cigarette/Vaping Use: Never Used Second Hand Smoke Exposure: No Advance Directives Date on File: 06/09/21 service: No Current occupational status: employed Cognitive needs: No Hearing needs: No Vision needs: Yes Review of Systems Const All systems reviewed & are unremarkable except as noted in HPI and below Eyes Reports no additional complaints ENT Reports no additional complaints and Reports nasal congestion (Mild intermittent) Card Denies chest pain, Denies irregular heart rhythm, Reports leg edema (Only minimal at this time) and Reports dyspnea on exertion (Mild) Resp Reports cough (Mild intermittent), Reports dyspnea on exertion (Mild) and Denies wheezing GI Reports no additional complaints Reports no additional complaints Musc Reports no additional complaints Skin/Breast Reports system reviewed and no additional complaints, except as documented Neuro Reports no additional complaints Psych Reports no additional complaints Aller/Immun Denies wheezing Physical Exam Vital Signs: Last Vital Signs Pulse 66 08/27/23 10:59 BP 134/72 08/27/23 10:59 Pulse Ox 99 11/07/23 10:59 Oxygen Delivery Method Nasal Cannula 08/27/23 10:59 Oxygen Flow Rate 3 08/27/23 10:59 BMI result Body Mass Index 43.0 Last Vital Signs Temp 97.2 F 08/05/23 11:29 Pulse 65 08/05/23 11:29 Resp 20 08/05/23 11:29 BP 121/59 L 08/05/23 11:29 Pulse Ox 96 08/05/23 11:29 O2 Del Method Nasal Cannula 08/05/23 11:29 O2 Flow Rate 2 08/05/23 11:29 Oxygen Flow Rate 4 08/01/23 13:21 BMI result Body Mass Index 43.9 Const Other: Patient is a morbidly obese with a round face, short and obese neck. .Physical features typical for obstructive sleep apnea General: comfortable, no acute distress, alert and awake Orientation/consciousness: patient oriented x3 HEENT Head: Yes normal to inspection General nose exam: No nasal polyps present and No nasal discharge present Face and sinus: Yes sinuses nontender Mouth: oropharynx abnormals (Very narrow and crowded oropharynx) Throat: Yes posterior oropharynx normal Eyes General: appearance normal, both eyes and all related structures Neck Neck: Yes normal visual inspection, Yes no lymphadenopathy, Yes trachea midline and Yes no JVD Thyroid: Thyroid normal Chest Chest palpation & inspection: normal inspection of the chest, normal palpation of entire chest wall and no tenderness Resp Other: Percussion note is not perceptible because of thick chest wall. Breath sounds are generally diminished especially over the basilar areas. There are no wheezes or crepitations heard today. Cardio Palpation: PMI not normal (Not palpable) Rate: regular rate Rhythm: regular rhythm Heart sounds: no gallops and no murmurs GI Palpation (GI): Soft to palpation, nontender, No hepatosplenomegaly present and no masses Auscultation: normal bowel sounds Back/Spine/Pelvis Other: Not examine Thoracic/Lumbar Spine: thoracic and lumbar spine normal to inspection Skin General skin exam: no rashes or lesions noted Neuro General: patient oriented x3 and no focal motor deficits Cranial nerves: Yes CN's II-XII intact bilaterally Extrem General: Yes normal to inspection, Yes no clubbing, cyanosis or edema and Yes no calf tenderness Psych Appearance: grossly normal Speech and movement: Normal speech and movement present Assessment & Plan Assessment & Plan (1) CAP (community acquired pneumonia): Comment: Treated recently for pneumonia, community-acquired. Clinically resolved. Lungs are clear today. Code(s): J18.9 - Pneumonia, unspecified organism (2) AMY on CPAP: Comment: This patient is a very regular user of CPAP. Compliance has been good. Has not use the CPAP since her hospitalization, I have advised her to start using the CPAP regularly Code(s): G47.33 - Obstructive sleep apnea (adult) (pediatric); Z99.89 - Dependence on other enabling machines and devices (3) Nocturnal hypoxemia: Comment: ALONG WITH SEVERE OBSTRUCTIVE SLEEP APNEA SHE ALSO HAS SIGNIFICANT NOCTURNAL HYPOXEMIA. WITH THE USE OF CPAP HER NOCTURNAL HYPOXEMIA HAS BEEN CORRECTED. DOES NOT NEED TO USE OXYGEN AT NIGHT. Code(s): G47.34 - Idiopathic sleep related nonobstructive alveolar hypoventilation (4) Oxygen dependent: Comment: PATIENT IS KNOWN TO HAVE EXERCISE INDUCED HYPOXEMIA, SHE DOES HAVE STATIONARY CONCENTRATOR AT HOME WELL PORTABLE UNIT. ADVISED TO USE O2 2 L/MINUTE AT HOME AND WELL WHEN SHE GOES OUTDOORS. Code(s): Z99.81 - Dependence on supplemental oxygen Coding Level of Care Code Est Pt Level 4 (26870) Diagnoses CAP (community acquired pneumonia) J18.9 AMY on CPAP G47.33; Z99.89 Nocturnal hypoxemia G47.34 Oxygen dependent Z99.81
[2023-08-27 10:59] VITALS: BP 134/72; PULSE 66; O2SAT 99; BMI 43.0
== END 2023-08-27 11:26 | disposition home or self-care (01) ==
PROVIDERS: PCP Family Medicine; Visit Provider Internal Medicine
DX: J18.9 Pneumonia, unspecified organism (principal); G47.33 Obstructive sleep apnea (adult) (pediatric); Z99.89 Dependence on other enabling machines and devices; G47.34 Idiopathic sleep related nonobstructive alveolar hypoventilation; Z99.81 Dependence on supplemental oxygen
CPT/HCPCS: 99214

== ENCOUNTER → 2023-08-27 10:42 | Outpatient (BNVA) | payer MEDICARE, SELFPAY | PROVIDERS: PCP Family Medicine; Visit Provider Internal Medicine | DX: G47.33 Obstructive sleep apnea (adult) (pediatric) (principal); G47.34 Idiopathic sleep related nonobstructive alveolar hypoventilation; J18.9 Pneumonia, unspecified organism; Z99.89 Dependence on other enabling machines and devices; Z99.81 Dependence on supplemental oxygen | CPT/HCPCS: 99212 ==

== ENCOUNTER 2023-08-28 14:42 | Outpatient (AMB) | payer MEDICARE, SELFPAY ==
[2023-08-28 14:58] VITALS: BP 126/66; PULSE 67; RESP 14; TEMP 36.5; O2SAT 97; BMI 43.0
--- NOTE | 2023-08-28 14:58 | MHC.PC.OV ---
Vital Signs 08/28/23 14:58 Height 5 ft 2 in Weight 235 lb BMI 43.0 BP 126/66 Blood Pressure Location Lt brachial Position Sitting Respiration 14 Pulse 67 Pulse Source Pulse Oximeter Temp 97.7 F Temp Source Temporal Artery Scan Pulse Oximetry (%) 97 Oxygen Delivery Method Room Air Intake Visit Reasons: [facility] [place] , 08[place]08[place]23, Pneumonia Intake Note: Patient is here to follow up regarding the ER visit at [facility] [place] on 08/08/23. Patient was seen by pulmonology yesterday and was informed she would need to use her oxygen at all times moving forward. 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 Accompanied by: Son Allergies penicillin V Allergy (Severe, Verified 08/28/23 15:44) joint swelling and rash amlodipine [From [facility]] Adverse Reaction (Intermediate, Verified 08/28/23 15:44) edema Medication List - Last Reconciled 08/28/23 by Pilar Galeano, SHANAE apixaban (Eliquis) 5 mg PO BID ascorbic acid (vitamin C) 500 mg PO DAILY aspirin 81 mg PO DAILY atorvastatin 80 mg PO BEDTIME carvedilol 25 mg PO BID@0900,1500 cholecalciferol (vitamin D3) 1,250 mcg PO PISANO@0900 ferrous sulfate 325 mg PO DAILY fexofenadine 180 mg PO DAILY fluoxetine 40 mg PO DAILY FreeStyle Robert 2 [place] (flash glucose scanning reader) As directed NS FreeStyle Robert 2 Sensor (flash glucose sensor) As directed NS furosemide 40 mg PO BID hydralazine 25 mg PO BID@0900,1500 insulin glargine (Lantus Solostar U-100 Insulin) 70 units (0.7 mL) subcut BEDTIME insulin lispro See Protocol Sliding Scale: 150-200 Give 2 units 201-250 Give 4 units 251-300 Give 6 units 301-350 Give 8 units 351-400 Give 10 units 401-450 Give 12 units > 450 Give 12 units & call MD subcutaneously 4 times a day; lisinopril 10 mg See Protocol PO DAILY multivitamin 1 tab PO DAILY sodium polystyrene sulfonate 15 grams PO 3XW Tobacco use date assessed: 08/28/23 Fall risk assessment: No Falls in past year Last assessed Fall Risk: 08/28/23 Dental Screening Dental Screen Date: 08/28/23 Did you have a dental visit in the last 12 months?: Yes Did you have a dental problem in the last 6 months where you did not have access to dental care?: No Was dental information given to patient?: Patient has dentist HPI HPI Comments History of Present Illness Details 68-year-old female, accompanied by her son, presents for follow-up visit. She was admitted at [facility] between 08/01/2023 and 08/07/2023. She was treated for the following diagnosis: sepsis with acute/chronic hypoxic respiratory failure due to CAP new-onset atrial flutter/RVR anemia of CKD3 with occult blood positive stool acute/chronic HFpEF PACHECO/CKD3 She was advised to follow-up with cardiology and Nephrology within 2 weeks after being discharged. She was evaluated by [facility] pulmonology yesterday. It was noted that her CAP is clinically resolved. She was advised to continue to use 2 L of oxygen via nasal cannula. She has a follow up appointment in October,. She reports significant improvement since she was discharged from the hospital. She notes that she is breathing well and not coughing. She is able to talk more and not interrupted by coughing. She reports occasional dizziness especially which changing position quickly. She notes that she has an appointment with cardiology tomorrow. [facility] Medical History (Updated 08/28/23 @ 15:58 by Pilar Galeano CNP) MRSA carrier CAP (community acquired pneumonia) Morbid (severe) obesity due to excess calories AMY on CPAP Chronic renal failure Secondary aldosteronism Acute renal failure Nocturnal hypoxemia Morbid obesity Diabetes type 2, controlled HTN (hypertension) Morbid obesity due to excess calories AMY (obstructive sleep apnea) Pneumonia Obesity Elevated creatine kinase Anemia Congestive heart failure High cholesterol Diabetes type 2, uncontrolled Hypertension, essential Surgical History History of surgery History of D&C Family History Father Stroke Mother Stroke Hypertension Diabetes Maternal Grandmother Diabetes Hypertension Stroke Sister Diabetes Breast cancer Son Bipolar 1 disorder Overweight Other Mental health problem Substance abuse Social History Household Members: Children Housing: House Do you presently have visiting nurse or other home services: No Unable to assess alcohol history related to: Unable to respond Alcohol intake: never Patient Tobacco Use Status: Former Tobacco user e-Cigarette/Vaping Use: Never Used Second Hand Smoke Exposure: No Advance Directives Date on File: 06/09/21 service: No Current occupational status: employed Cognitive needs: No Hearing needs: No Vision needs: Yes Questionnaire Thrive Questionnaire Date Thrive assessed: 08/03/23 MARE-7 AMB Questionnaire MARE-7 Date MARE - 7 assessed: 04/16/22 Source: Developed by Drs. Ministerio Chirinos, Clementina Mike, Tru Calderon and colleagues, with an educational bryce from [employer]. Review of Systems Const Details: Const Denies chills, Denies fatigue, Denies fever(s), Denies headache(s) and Denies weakness ENT Denies dizziness and Denies headache(s) Card Denies chest pain, Denies lightheadedness, Denies dyspnea and Denies other (Palpitations) Resp Denies cough, Denies dyspnea, Denies wheezing and Denies other ( shortness of breath) GI Denies abdominal pain, Denies melena, Denies hematochezia, Denies change in bowel habits, Denies dyspepsia and Denies nausea Denies hematuria and Denies dysuria Musc Denies abnormal gait, Denies myalgias, Denies arthralgias, Denies numbness and Denies tingling Skin/Breast Denies rash, Denies unusual bruising and Denies wounds Neuro Denies abnormal gait, Denies dizziness, Denies headache(s), Denies memory loss, Denies numbness, Denies Sensory deficit (Neuro), Denies tingling and Denies weakness Psych Denies anxiety, Denies depression, Denies memory loss Endo Denies cold intolerance, Denies fatigue, Denies heat intolerance, Denies polydipsia and Denies polyuria Aller/Immun Denies wheezing Physical exam (Primary Care) Vital Signs: Last Vital Signs Temp 97.7 F 08/28/23 14:58 Pulse 67 08/28/23 14:58 Resp 14 08/28/23 14:58 BP 126/66 08/28/23 14:58 Pulse Ox 97 08/28/23 14:58 Oxygen Delivery Method Room Air 08/28/23 14:58 BMI result Body Mass Index 43.0 Tobacco/Smoking Status: Tobacco use Status Tobacco use date assessed 08/28/23 08/28/23 15:05 Patient Tobacco Use Status Former Tobacco user 08/28/23 15:05 e-Cigarette/Vaping Use Never Used 08/28/23 15:05 Thrive Assessment: Date of Thrive Assessment Date Thrive assessed 08/03/23 08/28/23 15:05 Const Other: General: no acute distress and well developed Nutritional Appearance: well nourished Orientation/consciousness: patient oriented x3 HENMT Head: Yes normocephalic and Yes atraumatic Eyes General: appearance normal, both eyes and all related structures Pupils: Equal, round and reactive pupils present EOM: EOMs intact bilaterally Resp Effort & Inspection: normal respiratory effort Auscultation: clear to auscultation bilaterally Cardio Rate: regular rate Rhythm: regular rhythm Heart sounds: S1 normal heart sound present, S2 normal heart sound present, no gallops, no murmurs and no rubs GI Palpation (GI): No Abdominal aortic bruit present, Soft to palpation, nontender, No hepatosplenomegaly present and No Rebound tenderness present Auscultation: normal bowel sounds General: Yes no CVA tenderness Back/Spine/Pelvis Back: no CVA tenderness Cervical Spine: cervical ROM normal and No Cervical spine tenderness Thoracic/Lumbar Spine: thoraco-lumbar ROM normal, No pain with thoraco-lumbar ROM, No thoracic spinal tenderness and No lumbar spinal tenderness Extrem General: Yes normal to inspection, No edema and No calf tenderness Skin General: warm and dry. Normal skin color. Normal skin turgor Neuro General: patient oriented x3, gait normal and no focal neuro deficit Cranial nerves: Yes Equal, round and reactive pupils present Cognition (Neuro): normal cognition Gait exam (Neuro): Normal gait present Sensory Exam: No Sensory deficit (Neuro) Psych Appearance: grossly normal Affect: normal affect Attitude: cooperative Thought process: Normal thought process present Assessment and Plan Assessment & Plan (1) New onset atrial flutter: Code(s): I48.92 - Unspecified atrial flutter Plan: No acute symptoms at this time Currently on Eliquis. Continue to take as prescribed Follow-up with cardiology as planned Follow-up with PCP in 1 month or return sooner with symptoms or concerns Verbalized understanding and agreed with treatment plan. (2) Acute worsening of stage 3 chronic kidney disease: Code(s): N18.30 - Chronic kidney disease, stage 3 unspecified Plan: Recent creatinine and BUN elevated, 2.71 and 64 respectively. She has an existing order to repeat CBC and CMP. Advised to get blood work done as soon as possible. Will review results and make changes to her care plan if warranted She has not been seen by Nephrology since her recent hospital discharge. Advised to call and schedule a follow-up appointment with Nephrology Follow-up with PCP in 1 month Return sooner with symptoms or concerns Verbalized understanding and agreed with treatment plan. (3) CAP (community acquired pneumonia): Comment: Treated recently for pneumonia, community-acquired. Clinically resolved. Lungs are clear today. Code(s): J18.9 - Pneumonia, unspecified organism Plan: Her recent CBC was elevated, 15.5 She was evaluated by pulmonology yesterday who noted that she was clinically resolved and to continue to use 2 L of oxygen daily. She was also encouraged to resume using her CPAP machine Continue with current treatment regimen Follow-up with pulmonology as planned Follow-up with PCP in 1 month or return sooner with symptoms or concerns Verbalized understanding and agreed with treatment plan. (4) Dizziness: Code(s): R42 - Dizziness and giddiness Plan: She reports occasional dizziness especially which changing position quickly. Orthostatic hypotension is likely Encouraged to change positions slowly and to discuss symptoms with cardiology for for evaluation Return with worsening or new symptoms Verbalized understanding and agreed with treatment plan. Coding Level of Care Code Est Pt Level 4 (12962) Diagnoses New onset atrial flutter I48.92 Acute worsening of stage 3 chronic kidney disease N18.30 CAP (community acquired pneumonia) J18.9 Dizziness R42
== END 2023-08-28 15:41 | disposition home or self-care (01) ==
PROVIDERS: PCP Family Medicine; Visit Provider Nurse Practitioner Family
DX: I48.92 Unspecified atrial flutter (principal); N18.30 Chronic kidney disease, stage 3 unspecified; J18.9 Pneumonia, unspecified organism; R42 Dizziness and giddiness
CPT/HCPCS: 99214

== ENCOUNTER 2023-08-29 15:18 | Outpatient (AMB) | payer MEDICARE, SELFPAY ==
[2023-08-29 15:20] VITALS: BP 120/72; PULSE 65; BMI 42.7
--- NOTE | 2023-08-29 15:20 | MHC.OFFVIS ---
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: No Allergies penicillin V Allergy (Severe, Verified 08/29/23 15:23) joint swelling and rash amlodipine [From [facility]] Adverse Reaction (Intermediate, Verified 08/29/23 15:23) edema Medication List - Last Reconciled 08/29/23 by YELITZA Nicole apixaban (Eliquis) 5 mg PO BID ascorbic acid (vitamin C) 500 mg PO DAILY aspirin 81 mg PO DAILY atorvastatin 80 mg PO BEDTIME carvedilol 25 mg PO BID@0900,1500 cholecalciferol (vitamin D3) 1,250 mcg PO PISANO@0900 ferrous sulfate 325 mg PO DAILY fexofenadine 180 mg PO DAILY fluoxetine 40 mg PO DAILY FreeStyle Robert 2 [place] (flash glucose scanning reader) As directed NS FreeStyle Robert 2 Sensor (flash glucose sensor) As directed NS furosemide 40 mg PO BID hydralazine 25 mg PO BID@0900,1500 insulin glargine (Lantus Solostar U-100 Insulin) 70 units (0.7 mL) subcut BEDTIME insulin lispro See Protocol Sliding Scale: 150-200 Give 2 units 201-250 Give 4 units 251-300 Give 6 units 301-350 Give 8 units 351-400 Give 10 units 401-450 Give 12 units > 450 Give 12 units & call MD subcutaneously 4 times a day; lisinopril 10 mg See Protocol PO DAILY multivitamin 1 tab PO DAILY sodium polystyrene sulfonate 15 grams PO 3XW HPI [facility] dc fu/ HPI Details Amaris is a 68-year-old female with past medical history morbid obesity, hypertension, hyperlipidemia, diabetes, obstructive sleep apnea with CPAP use, CKD, Congestive heart failure, aortic stenosis who was recently admitted to [facility] for increased shortness of breath and found to have mild Congestive heart failure and new finding of atrial flutter. She was treated with IV Lasix with improvement in breathing. She was treated with heart rate control and converted back to sinus rhythm. She did have anemia and was given a unit of blood. She was seen by GI in consultation. She was started on Eliquis 5 mg b.i.d. Today she reports that she has been doing well since her hospital discharge. She has not had any known irregular or rapid heartbeats. She checks her oxygen saturations a few times daily and this sat monitor has not shown erratic or elevated rates. She denies any chest discomfort at rest or with activity. She does have shortness of breath with activity and wears O2 continually. She wear CPAP during the night. No new PND, orthopnea or edema. No lightheadedness, presyncope, syncope, falls. She is currently in a wheelchair. Taking all meds as directed. No bleeding issues reported. Has not obtain blood work since her hospital discharge. Has not had a follow-up with GI. Son is present. [facility] Medical History MRSA carrier CAP (community acquired pneumonia) Morbid (severe) obesity due to excess calories AMY on CPAP Chronic renal failure Secondary aldosteronism Acute renal failure Nocturnal hypoxemia Morbid obesity Diabetes type 2, controlled HTN (hypertension) Morbid obesity due to excess calories AMY (obstructive sleep apnea) Pneumonia Obesity Elevated creatine kinase Anemia Congestive heart failure High cholesterol Diabetes type 2, uncontrolled Hypertension, essential Surgical History History of surgery History of D&C Family History Father Stroke Mother Stroke Hypertension Diabetes Maternal Grandmother Diabetes Hypertension Stroke Sister Diabetes Breast cancer Son Bipolar 1 disorder Overweight Other Mental health problem Substance abuse Social History Household Members: Children Housing: House Do you presently have visiting nurse or other home services: No Unable to assess alcohol history related to: Unable to respond Alcohol intake: never Patient Tobacco Use Status: Former Tobacco user e-Cigarette/Vaping Use: Never Used Second Hand Smoke Exposure: No Advance Directives Date on File: 06/09/21 service: No Current occupational status: employed Cognitive needs: No Hearing needs: No Vision needs: Yes Review of Systems Const Details: ambulates only short distances. Uses wheelchair today. All systems reviewed & are unremarkable except as noted in HPI and below ENT Denies dizziness Card Denies chest pain, Denies chest pain at rest, Denies chest pain with activity, Denies rapid heart rate, Denies pedal edema, Denies edema, Denies leg edema, Denies lightheadedness, Denies palpitations, Reports dyspnea, Reports dyspnea on exertion and Denies orthopnea Resp Details: Wearing O2 continually Denies cough, Reports dyspnea and Reports dyspnea on exertion GI Denies hematochezia and Denies change in stool character Musc Denies limited range of motion, Denies muscle cramps, Reports muscle weakness, Denies numbness, Denies radiating pain into limb, Denies stiffness and Denies tingling Neuro Denies dizziness, Denies numbness and Denies tingling Endo Denies palpitations Physical Exam Vital Signs: Last Vital Signs Pulse 65 08/29/23 15:20 BP 120/72 08/29/23 15:20 BMI result Body Mass Index 42.7 Const General: cooperative, healthy appearing, comfortable and no acute distress Orientation/consciousness: patient oriented x3 Neck Neck: Yes normal visual inspection Resp Other: Lungs diminished Effort & Inspection: normal respiratory effort Auscultation: clear to auscultation bilaterally, no rhonchi and no wheezes Cardio Jugular venous distension: no JVD Rate: regular rate Rhythm: regular rhythm Heart sounds: S1 normal heart sound present, S2 normal heart sound present, Murmur heart sound present (2/6 systolic, left sternal border) and no rubs Neuro General: patient oriented x3 Extrem General: Yes normal to inspection, No no pedal edema and No calf tenderness Psych Appearance: grossly normal Mental Status: mental status grossly normal Speech and movement: Normal speech and movement present Assessment & Plan Assessment & Plan (1) New onset atrial flutter: Code(s): I48.92 - Unspecified atrial flutter Plan: Presented to [facility] on 08/01/2023 with increased shortness of breath. Found to have mild Congestive heart failure and atrial flutter. She was treated with heart rate control and did convert back to normal sinus rhythm. Echocardiogram done 07/15/2023 showed EF 60-65%, [id number] aortic stenosis, mild dilation of the left atrium. She was sent home with carvedilol 25 mg b.i.d.. She was started on Eliquis 5 mg b.i.d.. She would was known to have anemia from unclear cause. GI did see her in consultation. Workup has not been completed as of yet. Patient tells me she has not had a GI appointment. Has not obtain blood work since her hospital discharge. No bleeding issues reported. On examination she does not appear fluid overloaded, pulse is regular, no concern for AFib/flutter at this time. Will check labs today including CMP, CBC. Will check Holter monitor to assess for paroxysmal atrial flutter and average heart rates. Plan to call her with results. Cardiology follow-up in office 3 months, sooner if needed (2) Acute on chronic hypoxic respiratory failure: Code(s): J96.21 - Acute and chronic respiratory failure with hypoxia Plan: Follows with Dr. Morillo for pulmonology. She tells me she had pneumonia recently and that has left her with increased shortness of breath and need for supplemental O2 use. Lungs clear on examination today. She has some chronic shortness of breath with activity. Will check BNP with today's labs (3) AMY on CPAP: Comment: This patient is a very regular user of CPAP. Compliance has been good. Has not use the CPAP since her hospitalization, I have advised her to start using the CPAP regularly Code(s): G47.33 - Obstructive sleep apnea (adult) (pediatric); Z99.89 - Dependence on other enabling machines and devices (4) Aortic stenosis: Code(s): I35.0 - Nonrheumatic aortic (valve) stenosis Qualifiers: Cardiac valve disease etiology: nonrheumatic Qualified Code(s): I35.0 - Nonrheumatic aortic (valve) stenosis Plan: [id number] aortic stenosis on last echocardiogram. Heart murmur noted on exam. Diagnosis of aortic stenosis reviewed with her and she states understanding. Plan for next echocardiogram 06/2024 (5) Oxygen dependent: Comment: PATIENT IS KNOWN TO HAVE EXERCISE INDUCED HYPOXEMIA, SHE DOES HAVE STATIONARY CONCENTRATOR AT HOME WELL PORTABLE UNIT. ADVISED TO USE O2 2 L/MINUTE AT HOME AND WELL WHEN SHE GOES OUTDOORS. Code(s): Z99.81 - Dependence on supplemental oxygen (6) Congestive heart failure: Comment: Patient being followed by Cardiology and congestive heart failure is under control at this time. Code(s): I50.9 - Heart failure, unspecified Plan: Episode of decompensated heart failure last admission. She did have new finding of atrial flutter at that time. She has obesity however does not appear grossly fluid overloaded at present. Her lungs are clear on exam and no edema noted. Continue with Lasix 40 mg b.i.d.. Labs being checked as above (7) Hospital discharge follow-up: Code(s): Z09 - Encounter for follow-up examination after completed treatment for conditions other than malignant neoplasm Plan: Time spent on chart review, documentation, interview, assess Orders: Orders B Type Natriuretic Peptide Today I48.92 - Unspecified atrial flutter Comprehensive Met. Panel Today I48.92 - Unspecified atrial flutter, Z51.81 - Encounter for therapeutic drug level monitoring, Z79.01 - shelter (current) use of anticoagulants ECG 3 day holter monitor Today I48.92 - Unspecified atrial flutter Complete Blood Count Auto Diff Today I48.92 - Unspecified atrial flutter, Z51.81 - Encounter for therapeutic drug level monitoring, Z79.01 - shelter (current) use of anticoagulants CA echo transthoracic complete 10 Months I35.0 - Nonrheumatic aortic (valve) stenosis Coding Level of Care Code Est Pt Level 4 (49106) Diagnoses New onset atrial flutter I48.92 Acute on chronic hypoxic respiratory failure J96.21 AMY on CPAP G47.33; Z99.89 Nonrheumatic aortic valve stenosis I35.0 Cardiac valve disease etiology: nonrheumatic Oxygen dependent Z99.81 Congestive heart failure I50.9 Hospital discharge follow-up Z09 Time Spent (min) 28
== END 2023-08-29 16:22 | disposition home or self-care (01) ==
PROVIDERS: PCP Family Medicine; Visit Provider Nurse Practitioner Family
DX: I48.92 Unspecified atrial flutter (principal); J96.21 Acute and chronic respiratory failure with hypoxia; G47.33 Obstructive sleep apnea (adult) (pediatric); Z99.89 Dependence on other enabling machines and devices; I35.0 Nonrheumatic aortic (valve) stenosis; Z99.81 Dependence on supplemental oxygen; I50.9 Heart failure, unspecified; Z09 Encounter for follow-up examination after completed treatment for conditions other than malignant neoplasm
CPT/HCPCS: 99214

== ENCOUNTER 2023-08-29 15:18 | Outpatient (REF) | payer MEDICARE, SELFPAY ==
[2023-08-29 16:40] LABS: MANUAL DIFF FLAG NO
[2023-08-29 18:37] LABS: Basophils Absolute Auto 0.1 X10*3/uL (0.0-0.2); Basophils Percent Auto 1.1 % (0-2); Eosinophils Absolute Auto 0.3 X10*3/uL (0.0-0.4); Eosinophils Percent Auto 2.8 % (0-4); Hematocrit 30.4 % (37.0-47.0); Hemoglobin 9.6 g/dl (12.0-16.0); Imm Gran Abs Auto 0.04 X10*3/uL (0.00-0.03); Imm Gran Pct Auto 0.4 % (0.0-0.4); Lymphocytes Absolute Auto 1.3 X10*3/uL (1.2-4.9); Mean Corpuscular HGB Conc 31.6 g/dl (31.0-35.0); Mean Corpuscular Volume 91.8 fL (80.0-98.0); Mean Platelet Volume 11.9 fL (9.4-12.3); Monocytes Absolute Auto 0.6 X10*3/uL (0.1-1.2); Monocytes Percent Auto 6.1 % (2-11); Neutrophils Absolute Auto 7.2 x10*3/uL (2.0-8.3); Neutrophils Percent Auto 75.6 % (45-73); Platelet Count 358 X10*3/uL (160-400); Red Blood Count 3.31 X10*6/uL (4.20-5.50); White Blood Count 9.5 X10*3/uL (4.8-10.8)
[2023-08-29 19:03] LABS: Alanine Aminotransferase 23 U/L (0-31); Albumin Level 2.9 g/dL (3.5-5.0); Alkaline Phosphatase 171 U/L (39-117); Anion Gap 16 (12-20); Aspartate Amino Transferase 25 U/L (5-31); B Type Natriuretic Peptide 173 pg/mL (<100); Bilirubin Total 0.4 mg/dL (0.0-1.0); Blood Urea Nitrogen 47 mg/dL (9-16); Calcium 8.6 mg/dL (8.4-10.2); Carbon Dioxide 23 mmol/L (22-29); Chloride 103 mmol/L (96-108); Estimated Glomerular Filt Rate 19; Glucose Fasting 250 mg/dL (60-99); Glucose Random 248 mg/dL (60-115); Potassium 4.8 mmol/L (3.3-5.1); Sodium 137 mmol/L (135-145); Total Protein 6.7 g/dL (6.5-8.0)
== END 2023-08-29 15:19 | disposition home or self-care (01) ==
LOC: HO.LAB 15:18
PROVIDERS: PCP Family Medicine; Visit Provider Nurse Practitioner Family
DX: I48.92 Unspecified atrial flutter (principal); I50.9 Heart failure, unspecified; N18.30 Chronic kidney disease, stage 3 unspecified; Z79.01 Long term (current) use of anticoagulants
CPT/HCPCS: 36415; 80048; 80053; 83880; 85025; 99212

== ENCOUNTER → 2023-09-05 15:07 | Outpatient (REF) | payer MEDICARE, SELFPAY ==
--- NOTE | 2023-09-05 15:11 | HM_ITS ---
* Total monitoring time 2 days and 18 hours. * Underlying rhythm is sinus. Average ventricular rate 71/Min. Range 61 to 81/min. * Atrial fibrillation noted with a burden of 11%. Longest episode 5 hours 50 minutes. Fastest 117/Min. * No significant pauses or heart blocks. * No patient markers or events in diary. A MTDD
== END ==
LOC: HO.CARD 15:07
PROVIDERS: PCP Family Medicine; Visit Provider Nurse Practitioner Family
DX: I48.92 Unspecified atrial flutter (principal)
CPT/HCPCS: 93242

== ENCOUNTER → 2023-09-05 15:11 | Outpatient (BNV) | payer MEDICARE, SELFPAY | PROVIDERS: PCP Family Medicine; Visit Provider Internal Medicine | DX: I48.91 Unspecified atrial fibrillation (principal) | CPT/HCPCS: 93244 ==

== ENCOUNTER 2023-10-10 10:54 | Outpatient (AMB) | payer MEDICARE, SELFPAY ==
[2023-10-10 11:05] VITALS: BP 132/68; PULSE 68; RESP 13; TEMP 36.3; O2SAT 98; BMI 43.0
--- NOTE | 2023-10-10 11:05 | A.OFFPC_ITS ---
Vital Signs 10/10/23 11:05 Height 5 ft 2 in Weight 235 lb 4 oz BMI 43.0 BP 132/68 Blood Pressure Location Rt brachial Position Sitting Respiration 13 Pulse 68 Pulse Source Pulse Oximeter Temp 97.3 F Temp Source Temporal Artery Scan Pulse Oximetry (%) 98 Oxygen Delivery Method Nasal Cannula Intake Visit Reasons: follow up chronic conditions,dm Intake Note: Patient states that ever since she got out the hospital it seems like its taking longer to bounce back. Patient states that she still loses her breath even with the oxygen. She has high and low days and her low days are very low meaning she wont get out of bed or move around like she should. Mat Linker Required: No Accompanied by: Daughter Allergies penicillin V Allergy (Severe, Verified 10/10/23 11:12) joint swelling and rash amlodipine [From [facility]] Adverse Reaction (Intermediate, Verified 10/10/23 11:12) edema Tobacco use date assessed: 08/28/23 Fall risk assessment: No Falls in past year Last assessed Fall Risk: 10/10/23 Dental Screening Dental Screen Date: 10/10/23 Did you have a dental visit in the last 12 months?: No Did you have a dental problem in the last 6 months where you did not have access to dental care?: No Was dental information given to patient?: Yes HPI follow up chronic conditions,dm HPI Details 68 y/o female presents to f/u chronic co nditions and diabetes. Last A1c 02/07/23 9.3%. A1c today 10/10/23 is 8.8%. She is on Lantus 70 units and insulin lispro. She takes her medications at night. She reports she tries to watch her diet. 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 Patient states that ever since she got out the hospital it seems like its taking longer to bounce back. Patient states that she still loses her breath even with the oxygen. She says she will see her pulmunologist in October. 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 CAP (community acquired pneumonia) Morbid (severe) obesity due to excess calories AMY on CPAP Chronic renal failure Secondary aldosteronism Acute renal failure Nocturnal hypoxemia Morbid obesity Diabetes type 2, controlled HTN (hypertension) Morbid obesity due to excess calories AMY (obstructive sleep apnea) Pneumonia Obesity Elevated creatine kinase Anemia Congestive heart failure High cholesterol Diabetes type 2, uncontrolled Hypertension, essential Surgical History History of surgery History of D&C Family History Father Stroke Mother Stroke Hypertension Diabetes Maternal Grandmother Diabetes Hypertension Stroke Sister Diabetes Breast cancer Son Bipolar 1 disorder Overweight Other Mental health problem Substance abuse Social History Household Members: Children Housing: House Do you presently have visiting nurse or other home services: No Unable to assess alcohol history related to: Unable to respond Alcohol intake: never Patient Tobacco Use Status: Former Tobacco user e-Cigarette/Vaping Use: Never Used Second Hand Smoke Exposure: No Advance Directives Date on File: 06/09/21 service: No Current occupational status: retired Cognitive needs: No Hearing needs: No Vision needs: Yes Questionnaire Thrive Questionnaire Date Thrive assessed: 08/03/23 MARE-7 AMB Questionnaire MARE-7 Date MARE - 7 assessed: 04/16/22 Source: Developed by Drs. Ministerio Chirinos, Clementina Mike, Tru Calderon and colleagues, with an educational bryce from [employer]. Review of Systems Const Denies chills, Denies fatigue, Denies fever(s), Denies headache(s) and Denies weakness ENT Denies dizziness and Denies headache(s) Card Denies dyspnea Resp Denies cough, Denies dyspnea, Denies wheezing and Denies other (shortness of breath) Musc Denies numbness and Denies tingling Neuro Denies dizziness, Denies headache(s), Denies numbness, Denies tingling and Denies weakness Psych Denies anxiety and Denies depression Endo Denies fatigue Aller/Immun Denies wheezing Physical exam (Primary Care) Vital Signs: Last Vital Signs Temp 97.3 F 10/10/23 11:05 Pulse 68 10/10/23 11:05 Resp 13 10/10/23 11:05 BP 132/68 10/10/23 11:05 Pulse Ox 98 10/10/23 11:05 Oxygen Delivery Method Nasal Cannula 10/10/23 11:05 BMI result Body Mass Index 43.0 Tobacco/Smoking Status: Tobacco use Status Tobacco use date assessed 08/28/23 10/10/23 11:16 Patient Tobacco Use Status Former Tobacco user 10/10/23 11:16 e-Cigarette/Vaping Use Never Used 10/10/23 11:16 Thrive Assessment: Date of Thrive Assessment Date Thrive assessed 08/03/23 10/10/23 11:16 Const General: well developed; No acute distress Nutritional Appearance: well nourished Orientation/consciousness: patient oriented x3 HENMT Head: Yes normocephalic and Yes atraumatic Eyes General: appearance normal, both eyes and all related structures Pupils: Equal, round and reactive pupils present EOM: EOMs intact bilaterally Resp Effort & Inspection: normal respiratory effort Neuro General: patient oriented x3 and gait normal Cranial nerves: Yes Equal, round and reactive pupils present Psych Affect: normal affect Results AMB Hemoglobin A1c AMB Hemoglobin A1c 8.8 % Last Edit by Peggy Warner CMA on 10/10/23 12:24 Assessment and Plan Assessment & Plan (1) Diabetes type 2, uncontrolled: Code(s): E11.65 - Type 2 diabetes mellitus with hyperglycemia Qualifiers: Coma presence: without coma Glycemic state: with hypoglycemia Qualified Code(s): E11.649 - Type 2 diabetes mellitus with hypoglycemia without coma Plan: A1c?8.8%. Still?poor?control.??Goal?is?7.0% She?has?had?a?few?low?blood?sugars?but?also?does?not?always?eat?consistent?meals Will?have?her?change?Lantus?dosing?to?b.i.d.?dosing. Change?from?70?units?q.p.m.?to?38?units?a.m.?and 36?units?p.m. Continue?mealtime?insulin?as?prescribed Will?follow-up?in?3?months (2) Chronic renal failure: Code(s): N18.9 - Chronic kidney disease, unspecified Plan: Chronic?and?fairly?stable.??Improved?from?prior?checks No?changes?to?her?medications?list?regarding?this (3) Supplemental oxygen dependent: Code(s): Z99.81 - Dependence on supplemental oxygen Plan: Oxygen?saturation?98% Recent?pneumonia Lungs?are?clear Continue?oxygen?and?follow-up?with?pulmonology (4) Pneumonia: Code(s): J18.9 - Pneumonia, unspecified organism Plan: As?above,?lungs?are?clear?and?oxygen?saturation?98% Should?continue?to?improve?to?baseline Follow-up?with?pulmonology (5) Depression: Code(s): F32.9 - Major depressive disorder, single episode, unspecified Plan: Has?a?therapist?and?a?psych?med?provider Has?good?family?support She?will? discuss?adding?bupropion?as?an?adjunct?medication?with?her?fluoxetine,?with?her? provider Orders: Orders AMB Hemoglobin A1c Today Z13.9 - Encounter for screening, unspecified Medications: Changed From hydralazine 25 mg PO BID@0900,1500 To hydralazine 25 mg PO BID@0900,1500 90 days 90 tabs 4RF From insulin glargine (Lantus Solostar U-100 Insulin) 70 units (0.7 mL) subcut BEDTIME 15 mL 12RF To insulin glargine (Lantus Solostar U-100 Insulin) 38 Units AM and 36 Units PM subcutaneously 2 times a day; 90 days 18 mL 12RF Refilled apixaban (Eliquis) INITIATE ON 08/11 5 mg PO BID 60 tabs 1RF Coding Level of Care Code Est Pt Level 4 (04353) Diagnoses Uncontrolled type 2 diabetes mellitus with hypoglycemia without coma E11.649 Coma presence: without coma Glycemic state: with hypoglycemia Chronic renal failure N18.9 Supplemental oxygen dependent Z99.81 Pneumonia J18.9 Depression F32.9
== END 2023-10-10 12:44 | disposition home or self-care (01) ==
PROVIDERS: PCP Family Medicine; Visit Provider Family Medicine
DX: E11.649 Type 2 diabetes mellitus with hypoglycemia without coma (principal); N18.9 Chronic kidney disease, unspecified; Z99.81 Dependence on supplemental oxygen; J18.9 Pneumonia, unspecified organism; F32.9 Major depressive disorder, single episode, unspecified
CPT/HCPCS: 83036; 99214

== ENCOUNTER 2023-11-14 15:27 | Outpatient (AMB) | payer MEDICARE, SELFPAY ==
[2023-11-14 15:33] VITALS: BP 104/58; PULSE 75; O2SAT 99; BMI 43.5
--- NOTE | 2023-11-14 15:33 | A.OFFVIS_ITS ---
Intake Vital Signs 11/14/23 15:33 Height 5 ft 2 in Weight 238 lb 1.588 oz BMI 43.5 BP 104/58 L Blood Pressure Location Lt brachial Position Sitting Pulse 75 Pulse Source Pulse Oximeter Pulse Oximetry (%) 99 Oxygen Delivery Method Nasal Cannula Oxygen Flow Rate 2 Intake Visit Reasons: Obstructive sleep apnea Intake Note: pt is here for follow up and states she is having dizziness today, and using cpap and it has been fine, and oxygen during the day. Person Investigator Required: No Allergies penicillin V Allergy (Severe, Verified 11/14/23 15:50) joint swelling and rash amlodipine [From [facility]] Adverse Reaction (Intermediate, Verified 11/14/23 15:50) edema Medication List - Last Reconciled 11/14/23 by Олег Morillo MD apixaban (Eliquis) 5 mg PO BID ascorbic acid (vitamin C) 500 mg PO DAILY aspirin 81 mg PO DAILY atorvastatin 80 mg PO BEDTIME carvedilol 25 mg PO BID@0900,1500 90 days cholecalciferol (vitamin D3) 1,250 mcg PO PISANO@0900 28 days ferrous sulfate 325 mg PO DAILY fexofenadine 180 mg PO DAILY fluoxetine 40 mg PO DAILY FreeStyle Robert 2 [place] (flash glucose scanning reader) As directed NS FreeStyle Robert 2 Sensor (flash glucose sensor) As directed NS furosemide 40 mg PO BID hydralazine 25 mg PO BID@0900,1500 90 days insulin glargine (Lantus Solostar U-100 Insulin) 38 Units AM and 36 Units PM subcutaneously 2 times a day; 90 days insulin lispro See Protocol Sliding Scale: 150-200 Give 2 units 201-250 Give 4 units 251-300 Give 6 units 301-350 Give 8 units 351-400 Give 10 units 401-450 Give 12 units > 450 Give 12 units & call MD subcutaneously 4 times a day; lisinopril 10 mg See Protocol PO DAILY multivitamin 1 tab PO DAILY sodium polystyrene sulfonate 15 grams PO 3XW venlafaxine ER (Effexor XR) 37.5 mg PO BID Do you need a note to return to daycare/school/sports/work: No HPI Obstructive sleep apnea HPI Details 68 YEARS OLD VERY PLEASANT FEMALE WHO IS MORBIDLY OBESE, AND HAS DIAGNOSIS OF OBSTRUCTIVE SLEEP APNEA. COMES FOR FOLLOW-UP AFTER A FEW MONTHS. SHE USES CPAP REGULARLY EVERY NIGHT AND SLEEPS WELL. MOST OF THE TIMES SHE IS SLEEPING MORE THAN 6 HOURS PER NIGHT. SHE HAS NO PROBLEM WITH THE CPAP MACHINE OR MASK. SHE DOES NOT NEED OXYGEN ALONG WITH THE CPAP AT NIGHT. DURING THE DAYTIME SHE USES O2 2 L/MINUTE P.R.N., AT REST. BUT SHE DOES NEED PORTABLE OXYGEN WHEN SHE GOES OUTDOORS, FOR DOCUMENTED EXERTIONAL HYPOXEMIA. WEIGHT HAS REMAINED UNCHANGED. SHE HAS REMAINED FREE OF ANY RESPIRATORY INFECTION IN THE LAST FEW MONTHS. 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 CAP (community acquired pneumonia) Morbid (severe) obesity due to excess calories Chronic renal failure Secondary aldosteronism Acute renal failure Nocturnal hypoxemia Diabetes type 2, controlled HTN (hypertension) Morbid obesity due to excess calories AMY (obstructive sleep apnea) Pneumonia Obesity Elevated creatine kinase Anemia Congestive heart failure High cholesterol Diabetes type 2, uncontrolled Hypertension, essential Surgical History History of surgery History of D&C Family History Father Stroke Mother Stroke Hypertension Diabetes Maternal Grandmother Diabetes Hypertension Stroke Sister Diabetes Breast cancer Son Bipolar 1 disorder Overweight Other Mental health problem Substance abuse Social History Household Members: Children Housing: House Do you presently have visiting nurse or other home services: No Unable to assess alcohol history related to: Unable to respond Alcohol intake: never Patient Tobacco Use Status: Former Tobacco user e-Cigarette/Vaping Use: Never Used Second Hand Smoke Exposure: No Advance Directives Date on File: 06/09/21 service: No Current occupational status: retired Cognitive needs: No Hearing needs: No Vision needs: Yes Review of Systems Const All systems reviewed & are unremarkable except as noted in HPI and below Eyes Reports no additional complaints ENT Reports no additional complaints and Reports nasal congestion (Mild intermittent) Card Denies chest pain, Denies irregular heart rhythm, Reports leg edema (Only minimal at this time) and Reports dyspnea on exertion (Mild) Resp Reports cough (Mild intermittent), Reports dyspnea on exertion (Mild) and Denies wheezing GI Reports no additional complaints Reports no additional complaints Musc Reports no additional complaints Skin/Breast Reports system reviewed and no additional complaints, except as documented Neuro Reports no additional complaints Psych Reports no additional complaints Aller/Immun Denies wheezing Physical Exam Vital Signs: Last Vital Signs Pulse 75 11/14/23 15:33 BP 104/58 L 11/14/23 15:33 Pulse Ox 99 11/14/23 15:33 Oxygen Delivery Method Nasal Cannula 11/14/23 15:33 Oxygen Flow Rate 2 11/14/23 15:33 BMI result Body Mass Index 43.5 Last Vital Signs Temp 97.2 F 08/05/23 11:29 Pulse 65 08/05/23 11:29 Resp 20 08/05/23 11:29 BP 121/59 L 08/05/23 11:29 Pulse Ox 96 08/05/23 11:29 O2 Del Method Nasal Cannula 08/05/23 11:29 O2 Flow Rate 2 08/05/23 11:29 Oxygen Flow Rate 4 08/01/23 13:21 BMI result Body Mass Index 43.9 Const Other: Patient is a morbidly obese with a round face, short and obese neck. .Physical features typical for obstructive sleep apnea General: comfortable, no acute distress, alert and awake Orientation/consciousness: patient oriented x3 HEENT Head: Yes normal to inspection General nose exam: No nasal polyps present and No nasal discharge present Face and sinus: Yes sinuses nontender Mouth: oropharynx abnormals (Very narrow and crowded oropharynx) Throat: Yes posterior oropharynx normal Eyes General: appearance normal, both eyes and all related structures Neck Neck: Yes normal visual inspection, Yes no lymphadenopathy, Yes trachea midline and Yes no JVD Thyroid: Thyroid normal Chest Chest palpation & inspection: normal inspection of the chest, normal palpation of entire chest wall and no tenderness Resp Other: Percussion note is not perceptible because of thick chest wall. Breath sounds are generally diminished especially over the basilar areas. There are no wheezes or crepitations heard today. Cardio Palpation: PMI not normal (Not palpable) Rate: regular rate Rhythm: regular rhythm Heart sounds: no gallops and no murmurs GI Palpation (GI): Soft to palpation, nontender, No hepatosplenomegaly present and no masses Auscultation: normal bowel sounds Back/Spine/Pelvis Other: Not examine Thoracic/Lumbar Spine: thoracic and lumbar spine normal to inspection Skin General skin exam: no rashes or lesions noted Neuro General: patient oriented x3 and no focal motor deficits Cranial nerves: Yes CN's II-XII intact bilaterally Extrem General: Yes normal to inspection, Yes no calf tenderness and Yes edema (TRACE OF EDEMA OF THE LEGS) Psych Appearance: grossly normal Speech and movement: Normal speech and movement present Results Reviewed Results Reviewed: COMPLIANCE REPORT FOR THE LAST 30 NIGHTS IS REVIEWED. SHE HAS USED 29/30 NIGHTS, 97%. AVERAGE USE PER NIGHT 5 HOURS 50 MINUTES. PRESSURE USED MOSTLY 12-13 CM. THERE IS MILD TO MODERATE AIR LEAK MAXIMUM 82 L/MINUTE. RESIDUAL AHI 1.1 Assessment & Plan Assessment & Plan (1) AMY on CPAP: Comment: This patient is a very regular user of CPAP. Compliance has been good. Code(s): G47.33 - Obstructive sleep apnea (adult) (pediatric); Z99.89 - Dependence on other enabling machines and devices Plan: COMMENDED FOR GOOD COMPLIANCE. ADVISED TO KEEP ON USING CPAP REGULARLY AT LEAST FOR 6 HOURS PER NIGHT. IF SHE FEELS SLEEPY DURING THE DAYTIME SHE CAN USE CPAP FOR 1 OR 2 HOURS DURING THE DAY WELL. (2) Morbid obesity: Comment: PATIENT CONTINUES TO BE MORBIDLY OBESE. IS DIFFICULT FOR HER TO LOSE WEIGHT. Code(s): E66.01 - Morbid (severe) obesity due to excess calories Plan: ADVISED TO DO EXERCISES EVEN WHEN SHE IS IN THE WHEELCHAIR. (3) Exercise hypoxemia: Comment: HER NOCTURNAL HYPOXEMIA WAS CORRECTED BY THE USE OF CPAP. SHE CONTINUES TO HAVE EXERCISE INDUCED HYPOXEMIA. SHE NEEDS O2 2 L/MINUTE WHENEVER SHE HAS TO DO SOME WORK OR GO OUTDOORS. Code(s): R09.02 - Hypoxemia Plan: CONTINUE TO USE OXYGEN FOR ANY PHYSICAL WORK AT 2 L/MINUTE. Coding Level of Care Code Est Pt Level 3 (36227) Diagnoses AMY on CPAP G47.33; Z99.89 Morbid obesity E66.01 Exercise hypoxemia R09.02
== END 2023-11-14 16:04 | disposition home or self-care (01) ==
PROVIDERS: PCP Family Medicine; Visit Provider Internal Medicine
DX: G47.33 Obstructive sleep apnea (adult) (pediatric) (principal); Z99.89 Dependence on other enabling machines and devices; E66.01 Morbid (severe) obesity due to excess calories; R09.02 Hypoxemia
CPT/HCPCS: 99213

== ENCOUNTER → 2023-11-14 15:27 | Outpatient (BNVA) | payer MEDICARE, SELFPAY | PROVIDERS: PCP Family Medicine; Visit Provider Internal Medicine | DX: G47.33 Obstructive sleep apnea (adult) (pediatric) (principal); E66.01 Morbid (severe) obesity due to excess calories; R09.02 Hypoxemia; Z99.89 Dependence on other enabling machines and devices; Z68.41 Body mass index [BMI] 40.0-44.9, adult | CPT/HCPCS: 99212 ==

== ENCOUNTER 2023-12-17 14:50 | Outpatient (AMB) | payer MEDICARE, SELFPAY ==
[2023-12-17 14:53] VITALS: BP 122/70; PULSE 70
--- NOTE | 2023-12-17 14:53 | MHC.OFFVIS ---
Intake Vital Signs 12/17/23 14:53 Height 5 ft 2 in BP 122/70 Blood Pressure Location Lt brachial Position Sitting Pulse 70 Pulse Source Pulse Oximeter Intake Visit Reasons: r/s 3 mos followup Allergies penicillin V Allergy (Severe, Verified 12/17/23 14:55) joint swelling and rash amlodipine [From [facility]] Adverse Reaction (Intermediate, Verified 12/17/23 14:55) edema Medication List - Last Reconciled 12/17/23 by YELITZA Nicole apixaban (Eliquis) 5 mg PO BID ascorbic acid (vitamin C) 500 mg PO DAILY aspirin 81 mg PO DAILY atorvastatin 80 mg PO BEDTIME carvedilol 25 mg PO BID@0900,1500 90 days cholecalciferol (vitamin D3) 1,250 mcg PO PISANO@0900 90 days ferrous sulfate 325 mg PO DAILY fexofenadine 180 mg PO DAILY FreeStyle Robert 2 [place] (flash glucose scanning reader) As directed NS FreeStyle Robert 2 Sensor (flash glucose sensor) As directed NS furosemide 40 mg PO BID hydralazine 25 mg PO BID@0900,1500 90 days insulin glargine (Lantus Solostar U-100 Insulin) 38 Units AM and 36 Units PM subcutaneously 2 times a day; 90 days insulin lispro See Protocol Sliding Scale: 150-200 Give 2 units 201-250 Give 4 units 251-300 Give 6 units 301-350 Give 8 units 351-400 Give 10 units 401-450 Give 12 units > 450 Give 12 units & call MD subcutaneously 4 times a day; lisinopril 10 mg See Protocol PO DAILY multivitamin 1 tab PO DAILY sodium polystyrene sulfonate 15 grams PO 3XW venlafaxine ER (Effexor XR) 37.5 mg PO BID HPI r/s 3 mos followup HPI Details Amaris is a 68-year-old female with past medical history morbid obesity, hypertension, hyperlipidemia, diabetes, obstructive sleep apnea with CPAP use, CKD, Congestive heart failure, aortic stenosis, newer atrial flutter, anemia requiring blood transfusion and now back on Eliquis who presents for follow-up. Today she reports she has been doing very well since her visit in August. She has not had any signs of bleeding. She continues on Eliquis without interruption. She does have shortness of breath with activity and wears her oxygen continually. She is requesting a handicap placard and was instructed to discuss with her PCP. She denies chest discomfort at rest or with activity. She does not notice heart palpitations, presyncope, syncope, falls. She has had some lightheadedness which she attributes to low blood pressure readings. No PND, orthopnea or edema. Taking meds as directed. [id number] present. 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 CAP (community acquired pneumonia) Morbid (severe) obesity due to excess calories Chronic renal failure Secondary aldosteronism Acute renal failure Nocturnal hypoxemia Diabetes type 2, controlled HTN (hypertension) Morbid obesity due to excess calories AMY (obstructive sleep apnea) Pneumonia Obesity Elevated creatine kinase Anemia Congestive heart failure High cholesterol Diabetes type 2, uncontrolled Surgical History History of surgery History of D&C Family History Father Stroke Mother Stroke Hypertension Diabetes Maternal Grandmother Diabetes Hypertension Stroke Sister Diabetes Breast cancer Son Bipolar 1 disorder Overweight Other Mental health problem Substance abuse Social History Household Members: Children Housing: House Do you presently have visiting nurse or other home services: No Unable to assess alcohol history related to: Unable to respond Alcohol intake: never Patient Tobacco Use Status: Former Tobacco user e-Cigarette/Vaping Use: Never Used Second Hand Smoke Exposure: No Advance Directives Date on File: 06/09/21 service: No Current occupational status: retired Cognitive needs: No Hearing needs: No Vision needs: Yes Review of Systems Const All systems reviewed & are unremarkable except as noted in HPI and below ENT Denies dizziness Card Denies chest pain, Denies chest pain at rest, Denies chest pain with activity, Denies rapid heart rate, Denies pedal edema, Denies edema, Denies leg edema, Denies lightheadedness, Denies palpitations, Denies dyspnea, Reports dyspnea on exertion and Denies orthopnea Resp Details: wearing O2 with nasal cannula Denies cough, Denies dyspnea and Reports dyspnea on exertion GI Denies hematochezia and Denies change in stool character Musc Reports abnormal gait, Reports limited range of motion, Denies muscle cramps, Denies muscle weakness, Denies numbness, Denies radiating pain into limb, Denies stiffness and Denies tingling Neuro Reports abnormal gait, Denies dizziness, Denies numbness and Denies tingling Endo Denies palpitations Physical Exam Vital Signs: Last Vital Signs Pulse 70 12/17/23 14:53 BP 122/70 12/17/23 14:53 Const Other: Morbidly obese General: cooperative, healthy appearing, comfortable and no acute distress Orientation/consciousness: patient oriented x3 Neck Neck: Yes normal visual inspection and Yes no JVD Resp Effort & Inspection: normal respiratory effort Auscultation: clear to auscultation bilaterally, no crackles, no rales, no rhonchi and no wheezes Cardio Jugular venous distension: no JVD Rate: regular rate Rhythm: regular rhythm Heart sounds: S1 normal heart sound present, S2 normal heart sound present, no murmurs and no rubs Neuro General: patient oriented x3 Extrem General: Yes normal to inspection, No no pedal edema and No calf tenderness Psych Appearance: grossly normal Mental Status: mental status grossly normal Speech and movement: Normal speech and movement present Assessment & Plan Assessment & Plan (1) New onset atrial flutter: Code(s): I48.92 - Unspecified atrial flutter Plan: Presented to [facility] [place] on 08/01/2023 with increased shortness of breath. Found to have mild Congestive heart failure and atrial flutter. She was treated with heart rate control and did convert back to normal sinus rhythm. Echocardiogram done 07/15/2023 showed EF 60-65%, [id number]-[id number] aortic stenosis, mild dilation of the left atrium. She had anemia and GI evaluation with endoscopy showed hiatal hernia, gastritis, colon polyps and diverticulosis. On discharge she was sent home with carvedilol 25 mg b.i.d. and Eliquis 5 mg b.i.d.. She has not reported any bleeding issues since that time. Labs done 08/29/2023 showed stable hematocrit at 30.4. Holter monitor done on 09/05/2023 for 2 days and 18 hours showed sinus rhythm with average heart rate 71, heart rate range 61 to 81, AFib 11% of the time, longest episodes 5 hours and 50 minutes. Today she reports that she has been feeling well since her last visit here in August. She has not had any heart palpitations. She reports her breathing as stable. On examination she does not appear fluid overloaded. Heart tones are regular, no concern for AFib/flutter at this time. Signs and symptoms of heart failure, PAF reviewed with her. Cardiology follow-up in office 6-7 months, sooner if needed (2) Aortic stenosis: Code(s): I35.0 - Nonrheumatic aortic (valve) stenosis Qualifiers: Cardiac valve disease etiology: nonrheumatic Qualified Code(s): I35.0 - Nonrheumatic aortic (valve) stenosis Plan: [id number]-ro-[id number] aortic stenosis on last echocardiogram. Heart murmur noted on exam. Diagnosis of aortic stenosis reviewed with her and she states understanding. Plan for next echocardiogram 06/2024 (3) Congestive heart failure: Comment: Patient being followed by Cardiology and congestive heart failure is under control at this time. Code(s): I50.9 - Heart failure, unspecified Plan: Episode of decompensated heart failure last admission. She did have new finding of atrial flutter at that time. She has obesity however does not appear grossly fluid overloaded at present. Her lungs are clear on exam and no edema noted. Continue with Lasix 40 mg b.i.d.. Labs 08/29/2023 shows potassium 4.8, creatinine 2.49 which is similar to prior values (4) Hypertension, essential: Code(s): I10 - Essential (primary) hypertension Plan: Patient has history of hypertension. She monitors her blood pressure at home closely. She states that she has had some lower readings recently with systolic running in the low 100s. She notices that she is having some mild lightheadedness. Blood pressure is normal range today. Discussed med management with her. We agreed on reducing hydralazine down to 10 mg b.i.d.. Instructed to return to the 25 mg b.i.d. tablets if her systolic blood pressure is running greater than 130. (5) Acute on chronic hypoxic respiratory failure: Code(s): J96.21 - Acute and chronic respiratory failure with hypoxia Plan: Follows with Dr. Morillo for pulmonology. She tells that since having pneumonia few months ago it left her with increased shortness of breath and need for supplemental O2 use. Lungs clear on examination today. She has some chronic shortness of breath with activity. (6) AMY on CPAP: Comment: This patient is a very regular user of CPAP. Compliance has been good. Code(s): G47.33 - Obstructive sleep apnea (adult) (pediatric); Z99.89 - Dependence on other enabling machines and devices Plan: Compliant with CPAP (7) Oxygen dependent: Comment: PATIENT IS KNOWN TO HAVE EXERCISE INDUCED HYPOXEMIA, SHE DOES HAVE STATIONARY CONCENTRATOR AT HOME WELL PORTABLE UNIT. ADVISED TO USE O2 2 L/MINUTE AT HOME AND WELL WHEN SHE GOES OUTDOORS. Code(s): Z99.81 - Dependence on supplemental oxygen Plan: As above Plan Time spent on chart review, documentation, interview and assessment Medications: New hydralazine 10 mg PO BID 60 tabs 6RF Discontinued hydralazine Discontinued Reason: Doctor's Order 25 mg PO BID@0900,1500 90 days 90 tabs 4RF Coding Level of Care Code Est Pt Level 4 (37804) Diagnoses New onset atrial flutter I48.92 Nonrheumatic aortic valve stenosis I35.0 Cardiac valve disease etiology: nonrheumatic Congestive heart failure I50.9 Hypertension, essential I10 Acute on chronic hypoxic respiratory failure J96.21 AMY on CPAP G47.33; Z99.89 Oxygen dependent Z99.81 Time Spent (min) 28
== END 2023-12-17 15:27 | disposition home or self-care (01) ==
PROVIDERS: PCP Family Medicine; Visit Provider Nurse Practitioner Family
DX: I48.92 Unspecified atrial flutter (principal); I35.0 Nonrheumatic aortic (valve) stenosis; I50.9 Heart failure, unspecified; I10 Essential (primary) hypertension; J96.21 Acute and chronic respiratory failure with hypoxia; G47.33 Obstructive sleep apnea (adult) (pediatric); Z99.89 Dependence on other enabling machines and devices; Z99.81 Dependence on supplemental oxygen
CPT/HCPCS: 99214

== ENCOUNTER → 2023-12-17 14:50 | Outpatient (BNVA) | payer MEDICARE, SELFPAY | PROVIDERS: PCP Family Medicine; Visit Provider Nurse Practitioner Family | DX: I48.92 Unspecified atrial flutter (principal); I35.0 Nonrheumatic aortic (valve) stenosis; I11.0 Hypertensive heart disease with heart failure; I50.9 Heart failure, unspecified; J96.21 Acute and chronic respiratory failure with hypoxia; G47.33 Obstructive sleep apnea (adult) (pediatric); Z99.89 Dependence on other enabling machines and devices; Z99.81 Dependence on supplemental oxygen | CPT/HCPCS: 99212 ==

== ENCOUNTER 2024-01-23 07:23 | Outpatient (REF) | payer MEDICARE, SELFPAY ==
--- NOTE | ~2024-01-23 | MM_ITS ---
EXAMINATION: MM SCREENING DIGITAL BREAST TOMOSYNTHESIS, BILATERAL CLINICAL INFORMATION: Screening. Asymptomatic. COMPARISON: Mammography: This study is compared with prior exams dating back to 2017. TECHNIQUE: Digital breast tomosynthesis is performed in both the craniocaudal and mediolateral oblique views along with computer-aided detection (CAD). Synthesized 2D images are generated from the tomosynthesis. FINDINGS: The breasts are almost entirely fatty (ACR BI-RADS breast composition Category a). There are no significant masses, abnormal calcifications, or other abnormalities. MM/MM tomosynthesis screening BI IMPRESSION: No mammographic evidence of malignancy. ASSESSMENT: BI-RADS BI-RADS 1 - Negative RECOMMENDATION: Routine annual mammography screening. 1 year F/U This examination should not preclude the clinical evaluation of a suspicious palpable abnormality. This patient's information was entered into a reminder system with a target due date for their next mammogram.
== END 2024-01-23 07:24 | disposition home or self-care (01) ==
LOC: HO.MAMMO 07:23
PROVIDERS: PCP Family Medicine; Visit Provider Family Medicine
DX: Z12.31 Encounter for screening mammogram for malignant neoplasm of breast (principal)
CPT/HCPCS: 77063; 77067

== ENCOUNTER → 2024-01-23 07:45 | Outpatient (BNV) | payer MEDICARE, SELFPAY | PROVIDERS: PCP Family Medicine; Visit Provider Radiology Diagnostic Radiology | DX: Z12.31 Encounter for screening mammogram for malignant neoplasm of breast (principal) | CPT/HCPCS: 77063; 77067 ==

== ENCOUNTER 2024-02-03 09:26 | Outpatient (AMB) | payer MEDICARE, SELFPAY ==
[2024-02-03 09:31] VITALS: BP 120/70; PULSE 80; O2SAT 99; BMI 45.0
--- NOTE | 2024-02-03 09:31 | A.OFFPC_ITS ---
Vital Signs 02/03/24 09:31 Height 5 ft 2 in Weight 246 lb 4 oz BMI 45.0 BP 120/70 Blood Pressure Location Lt brachial Position Sitting Pulse 80 Pulse Source Pulse Oximeter Pulse Oximetry (%) 99 Oxygen Delivery Method Room Air Intake Visit Reasons: f/u diabetes - see comments Intake Note: Patient is here to follow up on her diabetes today. Allergies penicillin V Allergy (Severe, Verified 02/03/24 09:35) joint swelling and rash amlodipine [From [facility]] Adverse Reaction (Intermediate, Verified 02/03/24 09:35) edema Medication List - Last Reconciled 02/03/24 by Sadi Harden MD apixaban (Eliquis) 5 mg PO BID ascorbic acid (vitamin C) 500 mg PO DAILY aspirin 81 mg PO DAILY atorvastatin 80 mg PO BEDTIME 90 days carvedilol 25 mg PO BID@0900,1500 90 days cholecalciferol (vitamin D3) 1,250 mcg PO PISANO@0900 90 days ferrous sulfate 325 mg PO DAILY fexofenadine 180 mg PO DAILY FreeStyle Robert 2 [place] (flash glucose scanning reader) As directed NS FreeStyle Robert 2 Sensor (flash glucose sensor) As directed NS furosemide 40 mg PO BID hydralazine 10 mg PO BID insulin glargine (Lantus Solostar U-100 Insulin) 38 Units AM and 36 Units PM subcutaneously 2 times a day; 90 days insulin lispro See Protocol Sliding Scale: 150-200 Give 2 units 201-250 Give 4 units 251-300 Give 6 units 301-350 Give 8 units 351-400 Give 10 units 401-450 Give 12 units > 450 Give 12 units & call MD subcutaneously 4 times a day; lisinopril 10 mg See Protocol PO DAILY multivitamin 1 tab PO DAILY sodium polystyrene sulfonate 15 grams PO 3XW venlafaxine ER 75 mg PO DAILY venlafaxine ER (Effexor XR) 37.5 mg PO BID Tobacco use date assessed: 02/03/24 Fall risk assessment: No Falls in past year Last assessed Fall Risk: 02/03/24 Dental Screening Dental Screen Date: 02/03/24 Did you have a dental visit in the last 12 months?: No Did you have a dental problem in the last 6 months where you did not have access to dental care?: No Was dental information given to patient?: Yes HPI f/u diabetes - see comments HPI Details 68 y/o female presents to f/u diabetes a s well as anxiety/depression. Had changed Lantus dosing to b.i.d. dosing - changed from 70 units q.p.m to 38 units a.m and 36 units p.m. Had continued her mealtime insulin as prescribed. Last A1c 10/10/23 8.8%. A1c today 02/03/24 is 8.1%. She notes she gets low blood sugars in the morning, 60s and 40s sometimes, 100- 110s. PHQ-9 11, MARE-7 0 today. She reports difficulties in seeing a mental health provider. Saw cardiology and has an echo scheduled June. 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 CAP (community acquired pneumonia) Morbid (severe) obesity due to excess calories Chronic renal failure Secondary aldosteronism Acute renal failure Nocturnal hypoxemia Diabetes type 2, controlled HTN (hypertension) Morbid obesity due to excess calories AMY (obstructive sleep apnea) Pneumonia Obesity Elevated creatine kinase Anemia Congestive heart failure High cholesterol Diabetes type 2, uncontrolled Surgical History History of surgery History of D&C Family History Father Stroke Mother Stroke Hypertension Diabetes Maternal Grandmother Diabetes Hypertension Stroke Sister Diabetes Breast cancer Son Bipolar 1 disorder Overweight Other Mental health problem Substance abuse Social History Household Members: Children Housing: House Do you presently have visiting nurse or other home services: No Unable to assess alcohol history related to: Unable to respond Alcohol intake: never Patient Tobacco Use Status: Former Tobacco user e-Cigarette/Vaping Use: Never Used Second Hand Smoke Exposure: No Advance Directives Date on File: 06/09/21 service: No Current occupational status: retired Cognitive needs: No Hearing needs: No Vision needs: Yes Questionnaire PHQ-9 Over the last 2 weeks, how often have you been bothered by any of the following problems? 1. Little interest or pleasure in doing things: nearly every day 2. Feeling down, depressed, or hopeless: not at all 3. Trouble falling or staying asleep, or sleeping too much: several days 4. Feeling tired or having little energy: nearly every day 5. Poor appetite or overeating: several days 6. Feeling bad about yourself - or that you are a failure or have let yourself or your family down: nearly every day 7. Trouble concentrating on things, such as reading the newspaper or watching television: not at all 8. Moving or speaking so slowly that other people could have noticed. Or the opposite - being so fidgety or restless that you have been moving around a lot more than usual: not at all 9. Thoughts that you would be better off or of hurting yourself in some way: not at all Total score: 11 Depression Screening Interpretation: Positive Depression Screening Done: Yes 33897 - PHQ-9 Billing: Yes Source: Developed by Drs. Ministerio Chirinos, Clementina Mike, Tru Calderon and colleagues, with an educational bryce from [employer]. Thrive Questionnaire Date Thrive assessed: 08/03/23 AUDIT C Alcohol Use Questionnaire (AUDIT-C) 1. How often do you have a drink containing alcohol?: Monthly or less 2. How many drinks containing alcohol do you have on a typical day when you are drinking?: 1 or 2 3. How often do you have six or more drinks on one occasion?: Never Total Score: 1 MARE-7 AMB Questionnaire MARE-7 Date MARE - 7 assessed: 02/03/24 Feeling nervous, anxious, or on edge: 0 = Not at all Not being able to stop or control worryin = Not at all Worrying too much about different things: 0 = Not at all Trouble relaxin = Not at all Being so restless that it is hard to sit still: 0 = Not at all Becoming easily annoyed or irritable: 0 = Not at all Feeling afraid as if something awful might happen: 0 = Not at all Total MARE-7 score (0-4 normal; 5-9 mild; 10-14 moderate; 15-21 severe): 0 Source: Developed by Drs. Ministerio Chirinos, Clementina Mike, Tru Calderon and colleagues, with an educational bryce from [employer]. MARE-7 Assessment Billing MARE-7 Assessment Tool: MARE-7 Assessment 88408 Review of Systems Const Denies chills, Denies fatigue, Denies fever(s), Denies headache(s) and Denies weakness ENT Denies dizziness and Denies headache(s) Card Denies dyspnea Resp Denies cough, Denies dyspnea, Denies wheezing and Denies other (shortness of breath) Musc Denies numbness and Denies tingling Neuro Denies dizziness, Denies headache(s), Denies numbness, Denies tingling and Denies weakness Psych Denies anxiety and Reports depression Endo Denies fatigue Aller/Immun Denies wheezing Physical exam (Primary Care) Vital Signs: Last Vital Signs Pulse 80 02/03/24 09:31 BP 120/70 02/03/24 09:31 Pulse Ox 99 02/03/24 09:31 Oxygen Delivery Method Room Air 02/03/24 09:31 BMI result Body Mass Index 45.0 Tobacco/Smoking Status: Tobacco use Status Tobacco use date assessed 02/03/24 02/03/24 09:40 Patient Tobacco Use Status Former Tobacco user 02/03/24 09:40 e-Cigarette/Vaping Use Never Used 02/03/24 09:40 PHQ-9: PHQ-9 Score PHQ-9: Total score 11 02/03/24 09:53 Depression Screening Interpretation: Positive Thrive Assessment: Date of Thrive Assessment Date Thrive assessed 08/03/23 02/03/24 09:40 Const General: well developed; No acute distress Nutritional Appearance: well nourished Orientation/consciousness: patient oriented x3 HENMT Head: Yes normocephalic and Yes atraumatic Eyes General: appearance normal, both eyes and all related structures Pupils: Equal, round and reactive pupils present EOM: EOMs intact bilaterally Resp Effort & Inspection: normal respiratory effort Auscultation: clear to auscultation bilaterally Cardio Rate: regular rate Rhythm: regular rhythm Heart sounds: S1 normal heart sound present, S2 normal heart sound present, no gallops, no murmurs and no rubs Neuro General: patient oriented x3 and gait normal Cranial nerves: Yes Equal, round and reactive pupils present Psych Affect: normal affect Results AMB Hemoglobin A1c AMB Hemoglobin A1c 8.1 % Last Edit by Silke Espinoza CMA on 02/03/24 09:56 Assessment and Plan Assessment & Plan (1) Diabetes type 2, uncontrolled: Code(s): E11.65 - Type 2 diabetes mellitus with hyperglycemia Qualifiers: Coma presence: without coma Glycemic state: with hypoglycemia Qualified Code(s): E11.649 - Type 2 diabetes mellitus with hypoglycemia without coma Plan: Poorly?controlled?diabetes?with?A1c?8.1%. Slightly?improved?from?prior?8.8%. A?few?low?blood?sugars?which?seem?most?likely?due?to?decreased?food?intake?those ?evenings. Try?to?get?regular?food?intake/meals. Increase?sliding?scale?at?mealtimes?by?1?unit Continue?Lantus?38?units?b.i.d. Referred?to?endocrinology I?do?not?have?most?recent?diabetic?eye?exam-asked?patient?to?forward?note (2) Depression: Code(s): F32.9 - Major depressive disorder, single episode, unspecified Plan: Patient?is?having?difficulty?with?seeing?a?provider?for?depression?and?anxiety. Will?ask?nurse?navigator?to?help?connect?her?with?a?provider-psychiatrist (3) Hypertension, essential: Code(s): I10 - Essential (primary) hypertension Plan: Hydralazine?was?decreased?from?25mg?b.i.d.?to?10?mg?b.i.d.?due?to?dizziness. Goal?is?less?than?130/80 Blood?pressure?appears?well?controlled Continue?current?medication?regimen (4) Aortic stenosis: Code(s): I35.0 - Nonrheumatic aortic (valve) stenosis Qualifiers: Cardiac valve disease etiology: nonrheumatic Qualified Code(s): I35.0 - Nonrheumatic aortic (valve) stenosis Plan: Stable Has?next?echocardiogram?in?June Follow-up?with?Cardiology?as?recommended (5) Anemia: Code(s): D64.9 - Anemia, unspecified Plan: Check?H&H?prior?to?next?visit?in?a?month (6) Unsteady gait: Code(s): R26.81 - Unsteadiness on feet Plan: Unsteady?gait?and?low?back?pain Using?cane?and?I?encouraged?this Will?fill?out?handicap?jackeline (7) Chronic renal failure: Code(s): N18.9 - Chronic kidney disease, unspecified Plan: Chronic?renal?failure?and?is?followed?by?Nephrology. Nephrology?discussed?increasing?lisinopril. Significantly?elevated?creatinine?level - okay?with?Nephrology?making?changes?to?lisinopril but will?follow. Orders: Orders Complete Blood Count Auto Diff Today D64.9 - Anemia, unspecified, Z00.00 - Encounter for general adult medical examination without abnormal findings AMB Hemoglobin A1c Today Z13.9 - Encounter for screening, unspecified Basic Metabolic Panel Today D64.9 - Anemia, unspecified, Z00.00 - Encounter for general adult medical examination without abnormal findings Referrals Nurse Navigator Referral F32.9 - Major depressive disorder, single episode, unspecified Endocrinology Referral E11.649 - Type 2 diabetes mellitus with hypoglycemia without coma Medications: New miscellaneous medical supply Oxygen?concentrator. ?Daily?As directed. 999 days 1 ea 0RF J96.21 - Acute and chronic respiratory failure with hypoxia Coding Level of Care Code Est Pt Level 3 (01083) Diagnoses Uncontrolled type 2 diabetes mellitus with hypoglycemia without coma E11.649 Coma presence: without coma Glycemic state: with hypoglycemia Depression F32.9 Hypertension, essential I10 Nonrheumatic aortic valve stenosis I35.0 Cardiac valve disease etiology: nonrheumatic Anemia D64.9 Unsteady gait R26.81 Chronic renal failure N18.9 Additional Codes MARE-7 Assessment Billing - MARE-7 Assessment Tool: MARE-7 Assessment [id number] ([id number])
== END 2024-02-03 10:19 | disposition home or self-care (01) ==
PROVIDERS: PCP Family Medicine; Visit Provider Family Medicine
DX: I12.9 Hypertensive chronic kidney disease with stage 1 through stage 4 chronic kidney disease, or unspecified chronic kidney disease (principal); E11.649 Type 2 diabetes mellitus with hypoglycemia without coma; F32.9 Major depressive disorder, single episode, unspecified; N18.9 Chronic kidney disease, unspecified; I35.0 Nonrheumatic aortic (valve) stenosis; D64.9 Anemia, unspecified; R26.81 Unsteadiness on feet
CPT/HCPCS: 83036; 99213

== ENCOUNTER 2024-02-15 09:21 | Emergency (ER) | payer MEDICARE, SELFPAY ==
--- NOTE | ~2024-02-15 | CT_ITS ---
EXAMINATION: CT HEAD WITHOUT CONTRAST CLINICAL INFORMATION: Vision changes left COMPARISON: MRI head from 11/12/2021, CT head from 09/12/2022 TECHNIQUE: Contiguous axial imaging was performed from the skull base to vertex without intravenous administration of contrast. This CT examination was performed using dose optimization techniques as appropriate, variously including the following: *Automated exposure control *Adjustment of mA and/or kV according to patient size (this includes techniques or standardized protocols for targeted exams where dose is matched to indication/reason for exam; i.e. extremities or head) *Use of iterative reconstruction technique DLP: 672 mGy-cm FINDINGS: There is no evidence of acute intracranial hemorrhage or territorial infarction. Chronic white matter small vessel ischemic changes. No abnormal mass effect or midline shift is seen. [place] to white matter differentiation is well preserved. No extra-axial fluid collections are identified. The ventricles are normal in size. There is no abnormal attenuation within the brain parenchyma. Hyperostosis frontalis interna. The osseous structures and soft tissues are normal. Mucoperiosteal thickening of the left maxillary sinus and opacification of the right sphenoid sinus. Trace amount of fluid noted in the bilateral mastoid air cells. The visualized portions of the remaining paranasal sinuses are well aerated. CT/CT head/brain wo IV con IMPRESSION: 1. No acute intracranial pathology. 2. Chronic white matter small vessel ischemic changes. 3. Mucoperiosteal thickening of the left maxillary sinus and opacification of the right sphenoid sinus. 4. Trace amount of fluid noted in the bilateral mastoid air cells.
[2024-02-15 09:25] VITALS: BP 135/55; PULSE 72; RESP 16; TEMP 36.6; O2SAT 99; BMI 45.7
[2024-02-15 09:39] VITALS: BP 152/63; PULSE 72; RESP 16; TEMP 36.7; O2SAT 97
--- NOTE | 2024-02-15 09:51 | ED_ITS ---
HPI - Eye Problem General Chief complaint: Eye Problems Stated complaint: loss of sight l eye Time Seen by Provider: 02/15/24 09:35 Source: patient Mode of arrival: ambulatory History of Present Illness HPI Narrative: This is a 68-year-old female with history of COPD and on home oxygen of 2 L, also has atrial fibrillation and is on Xarelto, she has had bilateral cataract surgery and states that last night she noticed the vision had changed with multiple dark floaters in her left eye after cough and become less clear and then this morning states that it looks blurry, denies any double vision or complete loss of vision. She denies any speech deficits/headaches or dizziness and denies any recent falls. Related Data Home Medications ?Medication ?Instructions ?Recorded ?Confirmed ascorbic acid (vitamin C) 500 mg 500 mg PO DAILY 09/22/20 02/03/24 tablet fexofenadine 180 mg tablet 180 mg PO DAILY 09/22/20 02/03/24 multivitamin 1 tab PO DAILY 09/12/22 02/03/24 ferrous sulfate 325 mg (65 mg 325 mg PO DAILY 11/27/22 02/03/24 iron) tablet insulin lispro 100 unit/mL See Rx Instructions subcut QID 08/01/23 02/03/24 subcutaneous pen sodium polystyrene sulfonate 15 g PO 3XW 08/01/23 02/03/24 venlafaxine 37.5 mg 37.5 mg PO BID 11/14/23 02/03/24 capsule,extended release 24 hr (Effexor XR) venlafaxine 75 mg capsule,extended 75 mg PO DAILY 02/03/24 02/03/24 release 24 hr Previous Rx's ?Medication ?Instructions ?Recorded aspirin 81 mg chewable tablet 81 mg PO DAILY #30 tabs 09/16/22 FreeStyle Robert 2 [place] (flash #1 ea 12/24/22 glucose scanning reader) furosemide 40 mg tablet 40 mg PO BID #60 tabs 09/03/23 insulin glargine 100 unit/mL (3 See Rx Instructions subcut BID 90 10/15/23 mL) subcutaneous pen (Lantus days #18 mL Solostar U-100 Insulin) FreeStyle Robert 2 Sensor (flash #2 ea 10/31/23 glucose sensor) hydralazine 10 mg tablet 10 mg PO BID #60 tabs 12/17/23 apixaban 5 mg tablet (Eliquis) 5 mg PO BID #60 tabs 01/01/24 lisinopril 10 mg tablet 10 mg PO DAILY #90 tabs 01/01/24 carvedilol 25 mg tablet 25 mg PO BID@0900,1500 90 days #90 01/07/24 tabs cholecalciferol (vitamin D3) 1,250 1,250 mcg PO PISANO@0900 90 days #13 01/17/24 mcg (50,000 unit) capsule caps atorvastatin 80 mg tablet 80 mg PO BEDTIME 90 days #90 tabs 01/20/24 miscellaneous medical supply #1 ea 02/03/24 Allergies Allergy/AdvReac Type Severity Reaction Status Date / Time penicillin V Allergy Severe joint Verified 02/15/24 09:27 swelling and rash amlodipine [From [facility]] AdvReac Intermediate edema Verified 02/15/24 09:27 Review of Systems 2 Review of Systems: Pertinent positives and negatives as stated in HPI [facility] Past Medical History Source: nursing notes reviewed Medical History Anemia Hypertension, essential Exercise hypoxemia AMY on CPAP Morbid obesity Heme positive stool Atrial flutter Elevated serum creatinine 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 CAP (community acquired pneumonia) Morbid (severe) obesity due to excess calories Chronic renal failure Secondary aldosteronism Acute renal failure Nocturnal hypoxemia Diabetes type 2, controlled HTN (hypertension) Morbid obesity due to excess calories AYM (obstructive sleep apnea) Pneumonia Obesity Elevated creatine kinase Congestive heart failure High cholesterol Diabetes type 2, uncontrolled Surgical History History of surgery History of D&C Family History Family History Father Stroke Mother Stroke Hypertension Diabetes Maternal Grandmother Diabetes Hypertension Stroke Sister Diabetes Breast cancer Son Bipolar 1 disorder Overweight Other Mental health problem Substance abuse Social History Social History Household Members: Children Housing: House Do you presently have visiting nurse or other home services: No Unable to assess alcohol history related to: Unable to respond Alcohol intake: current Alcohol intake frequency: holidays/special occasions only Patient Tobacco Use Status: Former Tobacco user Smoked in Last 30 Days: No e-Cigarette/Vaping Use: Never Used Second Hand Smoke Exposure: No Use of substances other than those prescribed or required for medical reasons: No Advance Directives: Yes Advance Directives on File: Yes Advance Directives Date on File: 06/09/21 Do you have a plan to hurt others: No Plan service: No Current occupational status: retired Cognitive needs: No Hearing needs: No Vision needs: Yes Physical Exam 2 Vital Signs: Vital Signs: Last Vital Signs Temp 98.0 F 02/15/24 09:39 Pulse 67 02/15/24 12:12 Resp 18 02/15/24 12:12 BP 169/65 H 02/15/24 12:12 Pulse Ox 99 02/15/24 12:12 O2 Del Method Nasal Cannula 02/15/24 12:12 O2 Flow Rate 2 02/15/24 12:12 BMI result Body Mass Index 45.7 VITAL SIGNS: Reviewed. GENERAL: Well developed, well nourished, in no acute distress. HEAD: Normocephalic/atraumatic, EYES: PERRLA, EOMI intact without pain, no nystagmus/pallor/icterus noted OCULAR ULTRASOUND: no findings to suggest retinal detachment, ?vitreal detachment EARS: Ext canals without abnormality NOSE: Nares patent bilateral OROPHARYNX: no oral lesions noted, posterior pharynx clear NECK: Supple, no adenopathy LUNGS: Normal breath sounds. No adventitious sounds or accessory muscle use. SpO2<97> 2 L oxygen at baseline CARDIOVASCULAR: Regular rate and rhythm without noted murmurs ABDOMEN: Soft, non-tender, non-distended with bowel sounds. MUSCULOSKELETAL: No tenderness, deformities, or effusions noted on gross inspection. EXTREMITIES: No cyanosis, clubbing or edema. SKIN: Inspection of the skin reveals no rashes NEUROLOGIC: Alert and oriented x 4. Strength and sensation to light touch were grossly intact x 4, no facial asymmetry, no pronator drift, cranial nerves 2-12 are grossly intact. Medications Administered Discontinued Medications Generic Name Dose Route Start Last Admin Trade Name Freq PRN Reason Stop Dose Admin Sodium Zirconium Cyclosilicate 10 gm 02/15/24 10:26 02/15/24 10:45 Sodium Zirconium Cyclosilicate 10 Gm Powd.Pack PO 02/15/24 10:27 10 gm ONCE ONE Administration Medical Decision Making Medical Decision Making MDM Narrative: 68-year-old female with history and clinical presentation, DDX: Low clinical suspicion for central etiology for visual changes, suspect possible vitreal and less likely retinal detachment as patient has no pain in the eye currently. I reviewed all investigations and hematologic indices demonstrate a noninfectious leukocytosis and chronically stable normocytic anemia of chronic disease and no thrombocytopenia. Coagulation studies are elevated consistent with chronic use of anticoagulation. Serial chemistries demonstrate asymptomatic elevation of potassium levels that patient reports she is had consistent issues with and will begin taking her medication that she has at home, she received 10 mg of Lokelma here in the emergency room and has a stable CKD, otherwise no liver enzyme derangements other than chronically elevated alkaline phosphatase. CT of the head is negative for intracranial hemorrhage or mass effect there is noted some mucoperiosteal thickening of the left maxillary sinus and opacification of the right sphenoid sinus. My interpretation is that patient is experiencing a vitreus etiology for the floaters and blurry vision with the possibility cataract recurrence but this is felt to be less likely. Patient also has noted stable CKD with elevated potassium levels that she is otherwise asymptomatic for and no significant EKG changes noted. Patient received treatment here in the emergency room and will continue treatment with home medication for the elevated potassium and follow-up with her meter setter on 02/23. She was recommended to get repeat chemistries on Saturday. Differential Diagnosis Differential Diagnoses: The differential diagnosis associated with the presentation includes Please see the discussion above Admission/Observation Consideration of admission/observation: Escalation of care including admission/observation considered Please see the discussion above Lab Data MDM Lab Attestation statement: I reviewed the patient's lab results. Please see the discussion above 02/15/24 10:12 02/15/24 11:43 Labs: Lab Results 02/15/24 02/15/24 02/15/24 Range/Units 09:59 10:12 11:43 WBC 12.6 H (4.8-10.8) X10*3/uL RBC 2.79 L (4.20-5.50) X10*6/uL Hgb 8.4 L (12.0-16.0) g/dl Hct 26.8 L (37.0-47.0) % MCV 96.1 (80.0-98.0) fL MCH 30.1 (27.0-33.0) pg MCHC 31.3 (31.0-35.0) g/dl RDW 14.2 (11.0-16.0) % Plt Count 342 (160-400) X10*3/uL MPV 9.6 (9.4-12.3) fL Immature Gran % (Auto) 0.5 H (0.0-0.4) % Neut % (Auto) 80.3 H (45-73) % Lymph % (Auto) 8.5 L (20-40) % [place] % (Auto) 7.1 (2-11) % Eos % (Auto) 3.2 (0-4) % Baso % (Auto) 0.4 (0-2) % Lymph # (Auto) 1.1 L (1.2-4.9) X10*3/uL [place] # (Auto) 0.9 (0.1-1.2) X10*3/uL Eos # (Auto) 0.4 (0.0-0.4) X10*3/uL Baso # (Auto) 0.1 (0.0-0.2) X10*3/uL Abs Immat Gran (auto) 0.06 H (0.00-0.03) X10*3/uL Absolute Neuts (auto) 10.1 H (2.0-8.3) x10*3/uL Absolute Nucleated RBC 0.000 (0.0-0.012) X10*3/uL Nucleated RBC % (auto) 0.0 (0.0-0.2) /100WBC PT 14.2 H (11.1-13.3) SEC INR 1.2 H (0.9-1.1) Sodium 142 142 (135-145) mmol/L Potassium 5.5 H 5.6 H (3.3-5.1) mmol/L Chloride 118 H 118 H (96-108) mmol/L Carbon Dioxide 16 L 14 L (22-29) mmol/L Anion Gap 14 16 (12-20) BUN 59 H 58 H (9-16) mg/dL Creatinine 2.89 H 2.84 H (0.5-1.4) mg/dL Estim Creat Clear Calc 21.8 22.2 Estimated GFR 16 16 Random Glucose 158 H 139 H (60-115) mg/dL Calcium 8.4 8.4 (8.4-10.2) mg/dL Total Bilirubin 0.2 (0.0-1.0) mg/dL AST 14 (5-31) U/L ALT 15 (0-31) U/L Alkaline Phosphatase 156 H (39-117) U/L Total Protein 6.4 L (6.5-8.0) g/dL Albumin 3.0 L (3.5-5.0) g/dL Independent Interpretation I performed an independent interpretation of an: EKG Interpretation: Normal sinus rhythm, HR-67, STEMI, [place]/QRS/QTC is within normal limits. Radiology Impression Discussion of test interpretation with radiology: I have reviewed the radiologist's reading. Radiologist Impression: Please see the discussion above External Record Review External record reviewed: Outpatient record, Prior outpatient labs and Prior outpatient radiology Chronic Conditions Patient?s care impacted by: Diabetes and Hypertension CKD, chronic anticoagulation Critical Care Time Critical Care Time Critical Care Time: Yes Total Critical Care Time: 45 Attestation: I personally attest to this time spent taking care of the patient. Discharge Plan Discharge Clinical Impression: Vitreous degeneration and detachment of left eye, Hyperkalemia Patient Disposition: Home, Self-Care Instructions: Potassium Content of Foods List (ED), Hyperkalemia (ED), Visual Floaters (ED) Additional Instructions: 1. Please follow-up with your eye doctor by calling the office on Saturday to discuss your symptoms and evaluation here in the emergency room. 2. Please follow-up with your primary care doctor and discuss the need to get repeat chemistries to evaluate your potassium level. 3. Please keep your scheduled appointment with your kidney doctor on 02/23. Return to the ER should you experience any worsening or new symptoms. Prescriptions: No Action (DME) FreeStyle Robert 2 [place] Misc See Rx Instructions .Route Qty: 1 0RF Rx Instructions: As directed furosemide 40 mg tablet 40 mg PO BID Qty: 60 2RF Lantus Solostar U-100 Insulin 100 unit/mL (3 mL) insulin pen See Rx Instructions subcut BID 90 Days Qty: 18 12RF Rx Instructions: 38 Units AM and 36 Units PM subcutaneously 2 times a day; (DME) FreeStyle Robert 2 Sensor Kit See Rx Instructions .Route Qty: 2 5RF Rx Instructions: As directed lisinopril 10 mg tablet 10 mg PO DAILY Qty: 90 3RF Protocol: Hold for SBP< HOLD for SBP < : 90 Eliquis 5 mg tablet 5 mg PO BID Qty: 60 1RF Rx Instructions: INITIATE ON 08/11 carvedilol 25 mg tablet 25 mg PO BID@0900,1500 90 Days Qty: 90 2RF Rx Instructions: must administer with a meal/food cholecalciferol (vitamin D3) 1,250 mcg (50,000 unit) capsule 1,250 mcg PO PISANO@0900 90 Days Qty: 13 0RF atorvastatin 80 mg tablet 80 mg PO BEDTIME 90 Days Qty: 90 3RF multivitamin Tablet 1 tab PO DAILY aspirin 81 mg Tablet,Chewable 81 mg PO DAILY Qty: 30 0RF ferrous sulfate 325 mg (65 mg iron) Tablet 325 mg PO DAILY sodium polystyrene sulfonate Powder 15 g PO 3XW insulin lispro 100 unit/mL insulin pen See Rx Instructions subcut QID Protocol: Insulin Correction Scale Less than or equal to 110 ---- Give (units): 0 111 to 150 Give (units): 0 151 to 200 Give (units): 2 201 to 250 Give (units): 4 251 to 300 Give (units): 6 301 to 350 Give (units): 8 Greater than 350 Give (units): 10 Call MD if Blood Glucose > : 350 Rx Instructions: Sliding Scale: 150-200 Give 2 units 201-250 Give 4 units 251-300 Give 6 units 301-350 Give 8 units 351-400 Give 10 units 401-450 Give 12 units > 450 Give 12 units & call MD subcutaneously 4 times a day; fexofenadine 180 mg tablet 180 mg PO DAILY ascorbic acid (vitamin C) 500 mg tablet 500 mg PO DAILY venlafaxine 75 mg capsule,extended release 24hr 75 mg PO DAILY (DME) miscellaneous medical supply Misc See Rx Instructions .ROUTE .MEDSUPPLY Qty: 1 0RF Rx Instructions: Oxygen?concentrator. ?Daily?As directed. 999 days venlafaxine [Effexor XR] 37.5 mg capsule,extended release 24hr 37.5 mg PO BID hydralazine 10 mg tablet 10 mg PO BID Qty: 60 6RF Referrals: Sadi Bond MD [Primary Care Provider] - Print Language: Macedonian
--- NOTE | 2024-02-15 09:51 | ECG_ITS ---
Test Reason : ATRIAL FIBR Blood Pressure : / mmHG Vent. Rate : 067 BPM Atrial Rate : 067 BPM P-R Int : 172 ms QRS Dur : 102 ms QT Int : 416 ms P-R-T Axes : -04 007 068 degrees QTc Int : 439 ms Normal sinus rhythm Cannot rule out Anterior infarct , age undetermined Abnormal ECG When compared with ECG of 01-AUG-2023 17:17, Sinus rhythm has replaced Atrial flutter Non-specific change in ST segment in Inferior leads Non-specific change in ST segment in Lateral leads Nonspecific T wave abnormality, improved in Lateral leads Referred By: Lorena Casas Electronically Signed By:NICHOLE GARVIN MD
[2024-02-15 10:16] LABS: MANUAL DIFF FLAG NO
[2024-02-15 10:17] LABS: Basophils Absolute Auto 0.1 X10*3/uL (0.0-0.2); Basophils Percent Auto 0.4 % (0-2); Eosinophils Absolute Auto 0.4 X10*3/uL (0.0-0.4); Eosinophils Percent Auto 3.2 % (0-4); Hematocrit 26.8 % (37.0-47.0); Hemoglobin 8.4 g/dl (12.0-16.0); Imm Gran Abs Auto 0.06 X10*3/uL (0.00-0.03); Imm Gran Pct Auto 0.5 % (0.0-0.4); Lymphocytes Absolute Auto 1.1 X10*3/uL (1.2-4.9); Lymphocytes Percent Auto 8.5 % (20-40); Mean Corpuscular HGB Conc 31.3 g/dl (31.0-35.0); Mean Corpuscular Hemoglobin 30.1 pg (27.0-33.0); Mean Corpuscular Volume 96.1 fL (80.0-98.0); Mean Platelet Volume 9.6 fL (9.4-12.3); Monocytes Absolute Auto 0.9 X10*3/uL (0.1-1.2); Monocytes Percent Auto 7.1 % (2-11); Neutrophils Absolute Auto 10.1 x10*3/uL (2.0-8.3); Neutrophils Percent Auto 80.3 % (45-73); Platelet Count 342 X10*3/uL (160-400); Red Blood Count 2.79 X10*6/uL (4.20-5.50); Red Cell Distribution Width 14.2 % (11.0-16.0); White Blood Count 12.6 X10*3/uL (4.8-10.8)
[2024-02-15 10:21] LABS: Alanine Aminotransferase 15 U/L (0-31); Alkaline Phosphatase 156 U/L (39-117); Anion Gap 14 (12-20); Aspartate Amino Transferase 14 U/L (5-31); Bilirubin Total 0.2 mg/dL (0.0-1.0); Blood Urea Nitrogen 59 mg/dL (9-16); Calcium 8.4 mg/dL (8.4-10.2); Carbon Dioxide 16 mmol/L (22-29); Chloride 118 mmol/L (96-108); Creatinine Clr Calc Pharmacy 21.8; Estimated Glomerular Filt Rate 16; Glucose Random 158 mg/dL (60-115); Potassium 5.5 mmol/L (3.3-5.1); Sodium 142 mmol/L (135-145); Total Protein 6.4 g/dL (6.5-8.0)
--- NOTE | 2024-02-15 10:26 | PC.NURSE ---
a&ox4. vss and up to date. pt presents to ED w/ left sided blurry vision that started around 0800 this morning. pt states she originally noted white floaters in eye. denies trauma/dizziness/lightheadedness/headache. denies sx in right eye. pt states sx are constant. pt is on 2L via NC baseline d/t hx of heart failure. ekg/labs obtained by tech. no sob/wob noted. pt positioned upright. respirations even and unlabored. pt waiting to go to CT. family bedside. call perez placed within reach.
[2024-02-15 10:44] LABS: INTERNATIONAL NORM RATIO 1.2 (0.9-1.1); Prothrombin Time 14.2 SEC (11.1-13.3)
[2024-02-15] MEDS: Sodium Zirconium Cyclosilicate 10 GM POWD.PACK PO (10:45)
--- NOTE | 2024-02-15 10:49 | PC.NURSE ---
medication administered per provider order. pt placed on cardiac exercise specialist - displaying nsr. pt CT results pending at this time. pt/family aware of plan of care at this time. respirations remain even and unlabored. call perez placed within reach.
[2024-02-15 12:03] LABS: Anion Gap 16 (12-20); Blood Urea Nitrogen 58 mg/dL (9-16); Calcium 8.4 mg/dL (8.4-10.2); Carbon Dioxide 14 mmol/L (22-29); Chloride 118 mmol/L (96-108); Creatinine Clr Calc Pharmacy 22.2; Estimated Glomerular Filt Rate 16; Glucose Random 139 mg/dL (60-115); Potassium 5.6 mmol/L (3.3-5.1); Sodium 142 mmol/L (135-145)
[2024-02-15 12:12] VITALS: BP 169/65; PULSE 67; RESP 18; O2SAT 99
[2024-02-15 13:33] VITALS: BP 160/74; PULSE 66; RESP 12; TEMP 36.8; O2SAT 99
== END 2024-02-15 13:34 | disposition home or self-care (01) ==
PROVIDERS: Emergency Provider Student in an Organized Health Care Education/Training Program; PCP Internal Medicine Endocrinology, Diabetes & Metabolism
DX: H43.812 Vitreous degeneration, left eye (principal); H33.22 Serous retinal detachment, left eye; E87.5 Hyperkalemia; I48.91 Unspecified atrial fibrillation; E11.22 Type 2 diabetes mellitus with diabetic chronic kidney disease; I12.9 Hypertensive chronic kidney disease with stage 1 through stage 4 chronic kidney disease, or unspecified chronic kidney disease; N18.9 Chronic kidney disease, unspecified; J44.9 Chronic obstructive pulmonary disease, unspecified; Z79.01 Long term (current) use of anticoagulants; Z79.4 Long term (current) use of insulin; Z79.899 Other long term (current) drug therapy; Z99.81 Dependence on supplemental oxygen
CPT/HCPCS: 36415; 70450; 80048; 80053; 85025; 85610; 93005; 99284

== ENCOUNTER → 2024-02-15 09:51 | Outpatient (BNV) | payer MEDICARE, SELFPAY | PROVIDERS: Emergency Provider Student in an Organized Health Care Education/Training Program; PCP Internal Medicine Endocrinology, Diabetes & Metabolism; Visit Provider Internal Medicine Cardiovascular Disease | DX: R94.31 Abnormal electrocardiogram [ECG] [EKG] (principal) | CPT/HCPCS: 93010 ==

== ENCOUNTER 2024-03-09 15:21 | Outpatient (AMB) | payer MEDICARE, SELFPAY ==
--- NOTE | 2024-03-09 15:43 | A.OFFVIS_ITS ---
Vital Signs 03/09/24 15:44 Height 5 ft 2 in BP 102/60 Blood Pressure Location Lt brachial Position Sitting Pulse 73 Pulse Source Pulse Oximeter Pulse Oximetry (%) 96 Oxygen Delivery Method Nasal Cannula Oxygen Flow Rate 4 Intake Visit Reasons: Obstructive sleep apnea Intake Note: pt is here for follow up and states she is not feeling well, ? maybe pneumonia, cpap usage low, due to illness. She states she is coughing with phelgm, some yellow/green some foamy. Funny feeling right in throat area when she breaths, and this has been happening for a few weeks. Acute Specialist Required: No Allergies penicillin V Allergy (Severe, Verified 03/09/24 16:01) joint swelling and rash amlodipine [From [facility]] Adverse Reaction (Intermediate, Verified 03/09/24 16:01) edema Medication List - Last Reconciled 03/09/24 by Олег Morillo MD apixaban (Eliquis) 5 mg PO BID ascorbic acid (vitamin C) 500 mg PO DAILY aspirin 81 mg PO DAILY atorvastatin 80 mg PO BEDTIME 90 days carvedilol 25 mg PO BID@0900,1500 90 days cholecalciferol (vitamin D3) 1,250 mcg PO PISANO@0900 90 days ferrous sulfate 325 mg PO DAILY fexofenadine 180 mg PO DAILY FreeStyle Robert 2 [place] (flash glucose scanning reader) As directed NS FreeStyle Robert 2 Sensor (flash glucose sensor) As directed NS furosemide 40 mg PO BID hydralazine 10 mg PO BID insulin glargine (Lantus Solostar U-100 Insulin) 38 Units AM and 36 Units PM subcutaneously 2 times a day; 90 days insulin lispro See Protocol Sliding Scale: 150-200 Give 2 units 201-250 Give 4 units 251-300 Give 6 units 301-350 Give 8 units 351-400 Give 10 units 401-450 Give 12 units > 450 Give 12 units & call MD subcutaneously 4 times a day; lisinopril 10 mg See Protocol PO DAILY miscellaneous medical supply Oxygen?concentrator. ?Daily?As directed. 999 days multivitamin 1 tab PO DAILY sodium polystyrene sulfonate 15 grams PO 3XW venlafaxine ER 75 mg PO DAILY venlafaxine ER (Effexor XR) 37.5 mg PO BID Do you need a note to return to daycare/school/sports/work: No HPI HPI Obstructive sleep apnea: Details: VINCENT GRESHAM 68 YEARS OLD VERY PLEASANT FEMALE, COMES IN FOR A SPECIAL VISIT, COMPLAINS OF CHEST CONGESTION AND FREQUENT COUGH. SHE WAS TREATED FOR CHEST INFECTION LAST MONTH WITH A COURSE OF DOXYCYCLINE. SHE THINKS HIS NEVER CLEARED. SHE HAS NOT BEEN ABLE TO USE HER CPAP FOR THE LAST MONTH. SHE CONTINUES TO USE O2 3-4 L/MINUTE. DENIES FEVER OR CHILLS SHE DOES HAVE FREQUENT COUGH BUT NOT ABLE TO EXPECTORATES MUCH MUCUS. 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 CAP (community acquired pneumonia) Morbid (severe) obesity due to excess calories Chronic renal failure Secondary aldosteronism Acute renal failure Nocturnal hypoxemia Diabetes type 2, controlled HTN (hypertension) Morbid obesity due to excess calories AMY (obstructive sleep apnea) Pneumonia Obesity Elevated creatine kinase Congestive heart failure High cholesterol Diabetes type 2, uncontrolled Surgical History History of surgery History of D&C Family History Father Stroke Mother Stroke Hypertension Diabetes Maternal Grandmother Diabetes Hypertension Stroke Sister Diabetes Breast cancer Son Bipolar 1 disorder Overweight Other Mental health problem Substance abuse Social History Household Members: Children Housing: House Do you presently have visiting nurse or other home services: No Unable to assess alcohol history related to: Unable to respond Alcohol intake: current Alcohol intake frequency: holidays/special occasions only Patient Tobacco Use Status: Former Tobacco user e-Cigarette/Vaping Use: Never Used Second Hand Smoke Exposure: No Advance Directives Date on File: 06/09/21 service: No Current occupational status: retired Cognitive needs: No Hearing needs: No Vision needs: Yes Review of Systems Const All systems reviewed & are unremarkable except as noted in HPI and below Eyes Reports no additional complaints ENT Reports no additional complaints and Reports nasal congestion (Mild intermittent) Card Denies chest pain, Denies irregular heart rhythm, Reports leg edema (Only minimal at this time) and Reports dyspnea on exertion (Mild) Resp Reports cough (Mild intermittent), Reports dyspnea on exertion (Mild) and Denies wheezing GI Reports no additional complaints Reports no additional complaints Musc Reports no additional complaints Skin/Breast Reports system reviewed and no additional complaints, except as documented Neuro Reports no additional complaints Psych Reports no additional complaints Aller/Immun Denies wheezing Physical Exam Vital Signs: Last Vital Signs Pulse 73 03/09/24 15:44 BP 102/60 03/09/24 15:44 Pulse Ox 96 03/09/24 15:44 Oxygen Delivery Method Nasal Cannula 03/09/24 15:44 Oxygen Flow Rate 4 03/09/24 15:44 Last Vital Signs Temp 97.2 F 08/05/23 11:29 Pulse 65 08/05/23 11:29 Resp 20 08/05/23 11:29 BP 121/59 L 08/05/23 11:29 Pulse Ox 96 08/05/23 11:29 O2 Del Method Nasal Cannula 08/05/23 11:29 O2 Flow Rate 2 08/05/23 11:29 Oxygen Flow Rate 4 08/01/23 13:21 BMI result Body Mass Index 43.9 Const Other: Patient is a morbidly obese with a round face, short and obese neck. .Physical features typical for obstructive sleep apnea General: comfortable, no acute distress, alert and awake Orientation/consciousness: patient oriented x3 HEENT Head: Yes normal to inspection General nose exam: No nasal polyps present and No nasal discharge present Face and sinus: Yes sinuses nontender Mouth: oropharynx abnormals (Very narrow and crowded oropharynx) Throat: Yes posterior oropharynx normal Eyes General: appearance normal, both eyes and all related structures Neck Neck: Yes normal visual inspection, Yes no lymphadenopathy, Yes trachea midline and Yes no JVD Thyroid: Thyroid normal Chest Chest palpation & inspection: normal inspection of the chest, normal palpation of entire chest wall and no tenderness Resp Other: Percussion note is not perceptible because of thick chest wall. Breath sounds are generally diminished especially over the basilar areas. There are coarse breath sounds with says a few inspiratory crepitations over the left upper lobe area. Cardio Palpation: PMI not normal (Not palpable) Rate: regular rate Rhythm: regular rhythm Heart sounds: no gallops and no murmurs GI Palpation (GI): Soft to palpation, nontender, No hepatosplenomegaly present and no masses Auscultation: normal bowel sounds Back/Spine/Pelvis Other: Not examine Thoracic/Lumbar Spine: thoracic and lumbar spine normal to inspection Skin General skin exam: no rashes or lesions noted Neuro General: patient oriented x3 and no focal motor deficits Cranial nerves: Yes CN's II-XII intact bilaterally Extrem General: Yes normal to inspection, Yes no calf tenderness and Yes edema (TRACE OF EDEMA OF THE LEGS) Psych Appearance: grossly normal Speech and movement: Normal speech and movement present Assessment & Plan Assessment & Plan (1) Morbid obesity: Comment: PATIENT CONTINUES TO BE MORBIDLY OBESE. IS DIFFICULT FOR HER TO LOSE WEIGHT. Code(s): E66.01 - Morbid (severe) obesity due to excess calories Category: Medical Plan: It is understandable that she is not able to lose weight. (2) AMY on CPAP: Comment: This patient has been a very regular user of CPAP in the past. Recently she has not been able to use the CPAP because of her frequent bouts cough. Code(s): G47.33 - Obstructive sleep apnea (adult) (pediatric); Z99.89 - Dependence on other enabling machines and devices Category: Medical Plan: She is instructed to start using the CPAP once her acute cough and chest congestion clears. (3) Exercise hypoxemia: Comment: HER NOCTURNAL HYPOXEMIA WAS CORRECTED BY THE USE OF CPAP. SHE CONTINUES TO HAVE EXERCISE INDUCED HYPOXEMIA. SHE NEEDS O2 2 L/MINUTE WHENEVER SHE HAS TO DO SOME WORK OR GO OUTDOORS. Code(s): R09.02 - Hypoxemia Category: Medical Plan: Today while she is sick, she is requiring higher level of oxygen. I told her that she may increase to 3 L/minute when outdoors but at home go back to 2 L/minute. (4) Cough: Comment: Recently for the past 3-4 weeks she has had chest congestion with cough. On examination and chest auscultation she does have coarse breath sounds with some crepitations over the left upper lobe. And I suspect that she may have pneumonitis. Code(s): R05.9 - Cough, unspecified Category: Medical Plan: Chest x-ray is ordered. R/X DOXYCYCLINE 100 B.I.D. FOR 10 DAYS IS ORDERED. ROBITUSSIN 2 TSP T.I.D. FOR COUGH. REVISIT IN 1 WEEK Orders: Orders XR chest 2V Today G47.33 - Obstructive sleep apnea (adult) (pediatric), R05.9 - Cough, unspecified, R09.02 - Hypoxemia, Z99.89 - Dependence on other enabling machines and devices Coding Level of Care Code Est Pt Level 3 (28300) Diagnoses Morbid obesity E66.01 AMY on CPAP G47.33; Z99.89 Exercise hypoxemia R09.02 Cough R05.9
[2024-03-09 15:44] VITALS: BP 102/60; PULSE 73; O2SAT 96
== END 2024-03-09 16:12 | disposition home or self-care (01) ==
PROVIDERS: PCP Family Medicine; Visit Provider Internal Medicine
DX: E66.01 Morbid (severe) obesity due to excess calories (principal); G47.33 Obstructive sleep apnea (adult) (pediatric); Z99.89 Dependence on other enabling machines and devices; R09.02 Hypoxemia; R05.9 Cough, unspecified
CPT/HCPCS: 99213

== ENCOUNTER 2024-03-09 15:21 | Outpatient (REF) | payer MEDICARE, SELFPAY ==
--- NOTE | ~2024-03-09 | XR_ITS ---
EXAMINATION: XR CHEST CLINICAL INFORMATION: Hypoxemia. COMPARISON: Chest x-ray 08/05/2023. TECHNIQUE: 2 views of the chest were obtained. Provided for interpretation 03/18/2024. FINDINGS: The cardiomediastinal silhouette is stable. Worsening of bilateral airspace disease most prominent in the right upper lobe as compared to the prior study from 08/05/2023. No sizable effusion. Degenerative changes in the spine. XR/XR chest 2V IMPRESSION: Progressive or acute on chronic bilateral airspace disease compared to 08/05/2023. Clinical correlation is necessary. Consider chest CT for further evaluation.
== END 2024-03-09 15:22 | disposition home or self-care (01) ==
LOC: HO.XRAY 15:21
PROVIDERS: PCP Family Medicine; Visit Provider Internal Medicine
DX: R09.02 Hypoxemia (principal); R05.9 Cough, unspecified; E66.01 Morbid (severe) obesity due to excess calories; G47.33 Obstructive sleep apnea (adult) (pediatric); Z99.89 Dependence on other enabling machines and devices
CPT/HCPCS: 71046; 99212

== ENCOUNTER 2024-03-10 10:30 | Outpatient (AMB) | payer MEDICARE, SELFPAY ==
[2024-03-10 11:07] VITALS: BP 132/74; PULSE 69; O2SAT 93
--- NOTE | 2024-03-10 11:07 | MHC.PC.OV ---
Vital Signs 03/10/24 11:07 Height 5 ft 2 in BP 132/74 Blood Pressure Location Lt brachial Position Sitting Pulse 69 Pulse Source Pulse Oximeter Pulse Oximetry (%) 93 Oxygen Delivery Method Nasal Cannula Oxygen Flow Rate 2 Intake Visit Reasons: f/u diabetes, chronic conditions Intake Note: Patient is here to follow up on diabetes and chronic conditions. Patient states she has had blurry vision in left eye, she is going to see [place], for her vision. Allergies penicillin V Allergy (Severe, Verified 03/10/24 11:10) joint swelling and rash amlodipine [From [facility]] Adverse Reaction (Intermediate, Verified 03/10/24 11:10) edema Tobacco use date assessed: 03/10/24 Fall risk assessment: No Falls in past year Last assessed Fall Risk: 03/10/24 Dental Screening Dental Screen Date: 02/03/24 HPI f/u diabetes, chronic conditions HPI Details 69 y/o female presents to f/u diabetes, chronic conditions. Had asked her to increase sliding brenda by 1 unit for each blood sugar category. Continued her lantus. Had referred her to endocrinology. Still has ongoing significant anemia. They report last few days average blood sugar has been 192. They do note low blood sugars have improved. She has an appt. with Endocrinology. Vision changes for which pt went to ED in late January. Head CT negative. No eye pain/suspicioun was for a vitreous etiology of floaters and vision changes. 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 CAP (community acquired pneumonia) Morbid (severe) obesity due to excess calories Chronic renal failure Secondary aldosteronism Acute renal failure Nocturnal hypoxemia Diabetes type 2, controlled HTN (hypertension) Morbid obesity due to excess calories AMY (obstructive sleep apnea) Pneumonia Obesity Elevated creatine kinase Congestive heart failure High cholesterol Diabetes type 2, uncontrolled Surgical History History of surgery History of D&C Family History Father Stroke Mother Stroke Hypertension Diabetes Maternal Grandmother Diabetes Hypertension Stroke Sister Diabetes Breast cancer Son Bipolar 1 disorder Overweight Other Mental health problem Substance abuse Social History Household Members: Children Housing: House Do you presently have visiting nurse or other home services: No Unable to assess alcohol history related to: Unable to respond Alcohol intake: current Alcohol intake frequency: holidays/special occasions only Patient Tobacco Use Status: Former Tobacco user e-Cigarette/Vaping Use: Never Used Second Hand Smoke Exposure: No Advance Directives Date on File: 06/09/21 service: No Current occupational status: retired Cognitive needs: No Hearing needs: No Vision needs: Yes Questionnaire Thrive Questionnaire Date Thrive assessed: 08/03/23 MARE-7 AMB Questionnaire MARE-7 Date MARE - 7 assessed: 02/03/24 Source: Developed by Drs. Ministerio Chirinos, Clementina Mike, Tru Calderon and colleagues, with an educational bryce from [employer]. Review of Systems Const Denies chills, Denies fatigue, Denies fever(s), Denies headache(s) and Denies weakness ENT Denies dizziness and Denies headache(s) Card Denies dyspnea Resp Reports cough, Denies dyspnea and Denies wheezing Musc Denies numbness and Denies tingling Neuro Denies dizziness, Denies headache(s), Denies numbness, Denies tingling and Denies weakness Psych Denies anxiety and Denies depression Endo Denies fatigue Aller/Immun Denies wheezing Physical exam (Primary Care) Vital Signs: Last Vital Signs Pulse 69 03/10/24 11:07 BP 132/74 03/10/24 11:07 Pulse Ox 93 03/10/24 11:07 Oxygen Delivery Method Nasal Cannula 03/10/24 11:07 Oxygen Flow Rate 2 03/10/24 11:07 Tobacco/Smoking Status: Tobacco use Status Tobacco use date assessed 03/10/24 03/10/24 11:14 Patient Tobacco Use Status Former Tobacco user 03/10/24 11:14 e-Cigarette/Vaping Use Never Used 03/10/24 11:14 Thrive Assessment: Date of Thrive Assessment Date Thrive assessed 08/03/23 03/10/24 11:14 Const General: well developed; No acute distress Nutritional Appearance: well nourished Orientation/consciousness: patient oriented x3 HENMT Head: Yes normocephalic and Yes atraumatic Eyes General: appearance normal, both eyes and all related structures Pupils: Equal, round and reactive pupils present EOM: EOMs intact bilaterally Resp Other: R upper lobe squeaking, crackles bilateral lungs Effort & Inspection: normal respiratory effort Auscultation: not clear to auscultation bilaterally Neuro General: patient oriented x3 and gait normal Cranial nerves: Yes Equal, round and reactive pupils present Psych Affect: normal affect Assessment and Plan Assessment & Plan (1) Diabetes type 2, uncontrolled: Code(s): E11.65 - Type 2 diabetes mellitus with hyperglycemia Qualifiers: Coma presence: without coma Glycemic state: with hypoglycemia Qualified Code(s): E11.649 - Type 2 diabetes mellitus with hypoglycemia without coma Plan: Fewer?low?blood?sugars?though?her?morning?blood?sugars?are?still?running?rather?high. She?now?has?an?appointment?with?endocrinology?early?next?month Follow-up?with?endocrinology Continue?current?medication?regimen?and?continue?regular?meals. (2) Vision changes: Code(s): H53.9 - Unspecified visual disturbance Plan: Vision?changes?for?which?patient?went?to?the?ED?in?late?January Head?CT?was?negative No?eye?pain?and?suspicion?was?for?a?vitreous?etiology?of?floaters?and?vision?changes.? Has seen her Ophtho and has seen retinal specialist She?has?an?appointment?with ophthalmology on the (3) Anemia: Code(s): D64.9 - Anemia, unspecified Plan: Still?has?ongoing?significant?anemia. Will?refer?to?Hematology-Oncology (4) Hyperkalemia: Code(s): E87.5 - Hyperkalemia Plan: Mild/moderate?hyperkalemia?at?ED?and?was?given?treatment?for?this. Has seen Renal and given treatment 3x a week (5) Cough: Comment: Recently for the past 3-4 weeks she has had chest congestion with cough. On examination and chest auscultation she does have coarse breath sounds with some crepitations over the left upper lobe. And I suspect that she may have pneumonitis. Code(s): R05.9 - Cough, unspecified Plan: Crackles?at?bilateral?bases?and?wheezing/squeaks?at?upper?lung?[place]?on?the?right Chest?x-ray?shows?hazy?opacity?at?right?middle?lobe She?has?allergy?to?penicillins?and?beta?lactams.??She?also?has?several?contraindications?due?to?renal?failure. Will?send?a?Z-Blake Follow-up?with?pulmonology Orders: Orders Complete Blood Count Auto Diff Today D64.9 - Anemia, unspecified, Z00.00 - Encounter for general adult medical examination without abnormal findings Comprehensive Met. Panel Today D64.9 - Anemia, unspecified Referrals Hematology & Oncology Referral D64.9 - Anemia, unspecified Medications: New azithromycin (Zithromax Z-Blake) take 500 mg today (day 1), then 250 mg for 4 days (days 2-5) PO 5 days 6 tabs 0RF Coding Level of Care Code Est Pt Level 4 (27736) Diagnoses Uncontrolled type 2 diabetes mellitus with hypoglycemia without coma E11.649 Coma presence: without coma Glycemic state: with hypoglycemia Vision changes H53.9 Anemia D64.9 Hyperkalemia E87.5 Cough R05.9
== END 2024-03-10 11:53 | disposition home or self-care (01) ==
PROVIDERS: PCP Family Medicine; Visit Provider Family Medicine
DX: E11.649 Type 2 diabetes mellitus with hypoglycemia without coma (principal); H53.9 Unspecified visual disturbance; D64.9 Anemia, unspecified; E87.5 Hyperkalemia; R05.9 Cough, unspecified
CPT/HCPCS: 99214

== ENCOUNTER 2024-03-17 15:33 | Outpatient (AMB) | payer MEDICARE, SELFPAY ==
--- NOTE | 2024-03-17 15:46 | A.OFFVIS_ITS ---
Vital Signs 03/17/24 15:48 Height 5 ft 2 in BP 110/60 Blood Pressure Location Lt brachial Position Sitting Pulse 62 Pulse Source Pulse Oximeter Pulse Oximetry (%) 94 Oxygen Delivery Method Nasal Cannula Oxygen Flow Rate 3 Intake Visit Reasons: copd Intake Note: pt is here for follow up and states she is still coughing and has mucous still in throat. 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 Allergies penicillin V Allergy (Severe, Verified 03/17/24 16:11) joint swelling and rash amlodipine [From [facility]] Adverse Reaction (Intermediate, Verified 03/17/24 16:11) edema Medication List - Last Reconciled 03/17/24 by Олег Morillo MD apixaban (Eliquis) 5 mg PO BID ascorbic acid (vitamin C) 500 mg PO DAILY aspirin 81 mg PO DAILY atorvastatin 80 mg PO BEDTIME 90 days carvedilol 25 mg PO BID@0900,1500 90 days cholecalciferol (vitamin D3) 1,250 mcg PO PISANO@0900 90 days ferrous sulfate 325 mg PO DAILY fexofenadine 180 mg PO DAILY FreeStyle Robert 2 [place] (flash glucose scanning reader) As directed NS FreeStyle Robert 2 Sensor (flash glucose sensor) As directed NS furosemide 40 mg PO BID hydralazine 10 mg PO BID insulin glargine (Lantus Solostar U-100 Insulin) 38 Units AM and 36 Units PM subcutaneously 2 times a day; 90 days insulin lispro See Protocol Sliding Scale: 150-200 Give 2 units 201-250 Give 4 units 251-300 Give 6 units 301-350 Give 8 units 351-400 Give 10 units 401-450 Give 12 units > 450 Give 12 units & call subcutaneously 4 times a day; lisinopril 10 mg See Protocol PO DAILY miscellaneous medical supply Oxygen?concentrator. ?Daily?As directed. 999 days multivitamin 1 tab PO DAILY sodium polystyrene sulfonate 15 grams PO 3XW venlafaxine ER 75 mg PO DAILY venlafaxine ER (Effexor XR) 37.5 mg PO BID Do you need a note to return to daycare/school/sports/work: No HPI HPI copd: Details: Amaris 69 years old female comes for follow-up after a days. She has completed the course of doxycycline, She has been using O2 3 L/minute continuously. She is not on any other pulmonary meds. She has not been able to use CPAP. Remains morbidly obese, mostly in the wheelchair or recliner. Short of breath most of the time and has frequent cough almost dry without any expectoration, no wheezing. Chest x-ray shows the persistent infiltrate in the right lung, unchanged from previous x-rays. 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 CAP (community acquired pneumonia) Morbid (severe) obesity due to excess calories Chronic renal failure Secondary aldosteronism Acute renal failure Nocturnal hypoxemia Diabetes type 2, controlled HTN (hypertension) Morbid obesity due to excess calories AMY (obstructive sleep apnea) Pneumonia Obesity Elevated creatine kinase Congestive heart failure High cholesterol Diabetes type 2, uncontrolled Surgical History History of surgery History of D&C Family History Father Stroke Mother Stroke Hypertension Diabetes Maternal Grandmother Diabetes Hypertension Stroke Sister Diabetes Breast cancer Son Bipolar 1 disorder Overweight Other Mental health problem Substance abuse Social History Household Members: Children Housing: House Do you presently have visiting nurse or other home services: No Unable to assess alcohol history related to: Unable to respond Alcohol intake: current Alcohol intake frequency: holidays/special occasions only Patient Tobacco Use Status: Former Tobacco user e-Cigarette/Vaping Use: Never Used Second Hand Smoke Exposure: No Advance Directives Date on File: 06/09/21 service: No Current occupational status: retired Cognitive needs: No Hearing needs: No Vision needs: Yes Review of Systems Const All systems reviewed & are unremarkable except as noted in HPI and below Eyes Reports no additional complaints ENT Reports no additional complaints and Reports nasal congestion (Mild intermittent) Card Denies chest pain, Denies irregular heart rhythm, Reports leg edema (Only minimal at this time) and Reports dyspnea on exertion (Mild) Resp Reports cough (Mild intermittent), Reports dyspnea on exertion (Mild) and Denies wheezing GI Reports no additional complaints Reports no additional complaints Musc Reports no additional complaints Skin/Breast Reports system reviewed and no additional complaints, except as documented Neuro Reports no additional complaints Psych Reports no additional complaints Aller/Immun Denies wheezing Physical Exam Vital Signs: Last Vital Signs Pulse 62 03/17/24 15:48 BP 110/60 03/17/24 15:48 Pulse Ox 94 03/17/24 15:48 Oxygen Delivery Method Nasal Cannula 03/17/24 15:48 Oxygen Flow Rate 3 03/17/24 15:48 Last Vital Signs Temp 97.2 F 08/05/23 11:29 Pulse 65 08/05/23 11:29 Resp 20 08/05/23 11:29 BP 121/59 L 08/05/23 11:29 Pulse Ox 96 08/05/23 11:29 O2 Del Method Nasal Cannula 08/05/23 11:29 O2 Flow Rate 2 08/05/23 11:29 Oxygen Flow Rate 4 08/01/23 13:21 BMI result Body Mass Index 43.9 Const Other: Patient is a morbidly obese with a round face, short and obese neck. .Physical features typical for obstructive sleep apnea General: comfortable, no acute distress, alert and awake Orientation/consciousness: patient oriented x3 HEENT Head: Yes normal to inspection General nose exam: No nasal polyps present and No nasal discharge present Face and sinus: Yes sinuses nontender Mouth: oropharynx abnormals (Very narrow and crowded oropharynx) Throat: Yes posterior oropharynx normal Eyes General: appearance normal, both eyes and all related structures Neck Neck: Yes normal visual inspection, Yes no lymphadenopathy, Yes trachea midline and Yes no JVD Thyroid: Thyroid normal Chest Chest palpation & inspection: normal inspection of the chest, normal palpation of entire chest wall and no tenderness Resp Other: Percussion note is not perceptible because of thick chest wall. Breath sounds are generally diminished especially over the basilar areas. There are a few inspiratory crepitations over the right mid chest and basilar areas. Cardio Palpation: PMI not normal (Not palpable) Rate: regular rate Rhythm: regular rhythm Heart sounds: no gallops and no murmurs GI Palpation (GI): Soft to palpation, nontender, No hepatosplenomegaly present and no masses Auscultation: normal bowel sounds Back/Spine/Pelvis Other: Not examine Thoracic/Lumbar Spine: thoracic and lumbar spine normal to inspection Skin General skin exam: no rashes or lesions noted Neuro General: patient oriented x3 and no focal motor deficits Cranial nerves: Yes CN's II-XII intact bilaterally Extrem General: Yes normal to inspection, Yes no calf tenderness and Yes edema (TRACE OF EDEMA OF THE LEGS) Psych Appearance: grossly normal Speech and movement: Normal speech and movement present Results Reviewed Results Reviewed: Chest x-ray shows infiltrates in the right mid lung persistent, and unchanged from previous x-rays. Assessment & Plan Assessment & Plan (1) Morbid obesity: Comment: PATIENT CONTINUES TO BE MORBIDLY OBESE. IS DIFFICULT FOR HER TO LOSE WEIGHT. Code(s): E66.01 - Morbid (severe) obesity due to excess calories Category: Medical Plan: There is not much potential to lose weight (2) AMY on CPAP: Comment: This patient has been a very regular user of CPAP in the past. Recently she has not been able to use the CPAP because of her frequent bouts cough. Code(s): G47.33 - Obstructive sleep apnea (adult) (pediatric); Z99.89 - Dependence on other enabling machines and devices Category: Medical Plan: If not able, to use CPAP at least use O2 3 L/minute at night (3) Respiratory failure with hypoxia: Comment: She has persistent hypoxemia at rest as well as on minimal exercise. This seems to be due to combination of interstitial lung disease and congestive heart failure. Code(s): J96.91 - Respiratory failure, unspecified with hypoxia Category: Medical Plan: O2 3 L/minute continuously day and night. CT scan of the chest be performed to evaluate for interstitial lung disease. (4) Cough: Comment: Has ongoing cough which is quite bothersome, Has been treated with antibiotics without any change Code(s): R05.9 - Cough, unspecified Category: Medical Plan: At present I told her to use just cough syrup p.r.n. I a.m. working her up for possible interstitial. Lung disease (5) Interstitial lung disease: Comment: Persistent infiltrate in the right lung , indicates possible alveolitis/interstitial lung disease. Code(s): J84.9 - Interstitial pulmonary disease, unspecified Category: Medical Plan: CT scan of the chest is ordered Orders: Orders CT chest wo con - High Res Today J84.9 - Interstitial pulmonary disease, unspecified, J96.91 - Respiratory failure, unspecified with hypoxia, R05.9 - Cough, unspecified Coding Level of Care Code Est Pt Level 3 (81959) Diagnoses Morbid obesity E66.01 AMY on CPAP G47.33; Z99.89 Respiratory failure with hypoxia J96.91 Cough R05.9 Interstitial lung disease J84.9
[2024-03-17 15:48] VITALS: BP 110/60; PULSE 62; O2SAT 94
== END 2024-03-17 16:21 | disposition home or self-care (01) ==
PROVIDERS: PCP Family Medicine; Visit Provider Internal Medicine
DX: E66.01 Morbid (severe) obesity due to excess calories (principal); G47.33 Obstructive sleep apnea (adult) (pediatric); Z99.89 Dependence on other enabling machines and devices; J96.91 Respiratory failure, unspecified with hypoxia; R05.9 Cough, unspecified; J84.9 Interstitial pulmonary disease, unspecified
CPT/HCPCS: 99213

== ENCOUNTER → 2024-03-17 15:33 | Outpatient (BNVA) | payer MEDICARE, SELFPAY | PROVIDERS: PCP Family Medicine; Visit Provider Internal Medicine | DX: J96.91 Respiratory failure, unspecified with hypoxia (principal); J84.9 Interstitial pulmonary disease, unspecified; G47.33 Obstructive sleep apnea (adult) (pediatric); R05.9 Cough, unspecified; E66.01 Morbid (severe) obesity due to excess calories; Z99.89 Dependence on other enabling machines and devices | CPT/HCPCS: 99212 ==

== ENCOUNTER 2024-03-31 07:27 | Outpatient (REF) | payer MEDICARE, SELFPAY ==
--- NOTE | ~2024-03-31 | CT_ITS ---
EXAMINATION: CT CHEST WITHOUT CONTRAST CLINICAL INFORMATION: Respiratory failure with hypoxia. COMPARISON: Chest radiograph 03/09/2024. CT abdomen/pelvis 11/27/2022. CT chest 06/10/2021. TECHNIQUE: Multidetector volumetric CT imaging of the chest was obtained after without intravenous contrast. Axial MIP volume rendering provided. Sagittal and coronal reformatted images were obtained. This CT examination was performed using dose optimization techniques as appropriate, variously including the following: *Automated exposure control *Adjustment of mA and/or kV according to patient size (this includes techniques or standardized protocols for targeted exams where dose is matched to indication/reason for exam; i.e. extremities or head) *Use of iterative reconstruction technique DLP: 247 mGy-cm FINDINGS: LUNGS AND PLEURA: At the time of the prior study, scattered ground-glass opacities were present throughout both lungs along with septal thickening and bilateral pleural effusions thought to represent CHF. On the current exam, the left lung is significantly improved with some minimal residual ground-glass opacities seen. On the right, there are now coarsened interstitial markings seen with resolution of the larger ground-glass opacities. Some mild ground-glass changes still, however, persist. There is a suggestion of some honeycombing at the right lung base (for example 7:30). Trace right pleural effusion persists. MEDIASTINUM: The heart remains mildly enlarged. Some reactive mediastinal lymph nodes persist and are unchanged with the largest measuring 1.2 cm in short axis dimension in the right paratracheal region. VASCULAR: Extensive coronary calcium is present. No aortic aneurysm. AXILLA: No lymphadenopathy. UPPER ABDOMEN: Unremarkable. OSSEOUS STRUCTURES: Unremarkable. CT/CT chest wo con - High Res IMPRESSION: 1. Significant improvement in the appearance of the lungs with resolution of the larger ground-glass opacities. There are now coarse and interstitial markings seen in the right lung with some mild ground-glass changes still present. Trace right pleural effusion persists. Differential diagnosis would include unilateral pulmonary edema as well as some chronic interstitial disease with possible developing fibrotic changes. Infectious etiologies felt to be less likely. 2. Other incidental findings, as described above. Fleischner guidelines were followed.
== END 2024-03-31 07:28 | disposition home or self-care (01) ==
LOC: HO.CT 07:27
PROVIDERS: PCP Family Medicine; Visit Provider Internal Medicine
DX: J96.91 Respiratory failure, unspecified with hypoxia (principal); J84.9 Interstitial pulmonary disease, unspecified; R05.9 Cough, unspecified
CPT/HCPCS: 71250

== ENCOUNTER 2024-04-02 14:53 | Outpatient (AMB) | payer MEDICARE, SELFPAY ==
--- NOTE | 2024-04-02 14:57 | A.OFFVIS_ITS ---
Intake Visit Reasons: Obstructive sleep apnea Intake Note: pt is on the phone stating she is feeling a little better not coughing as much. 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 Allergies penicillin V Allergy (Severe, Verified 04/02/24 15:14) joint swelling and rash amlodipine [From [facility]] Adverse Reaction (Intermediate, Verified 04/02/24 15:14) edema Medication List - Last Reconciled 04/02/24 by Олег Morillo MD apixaban (Eliquis) 5 mg PO BID ascorbic acid (vitamin C) 500 mg PO DAILY aspirin 81 mg PO DAILY atorvastatin 80 mg PO BEDTIME 90 days carvedilol 25 mg PO BID@0900,1500 90 days cholecalciferol (vitamin D3) 1,250 mcg PO PISANO@0900 90 days ferrous sulfate 325 mg PO DAILY fexofenadine 180 mg PO DAILY FreeStyle Robert 2 [place] (flash glucose scanning reader) As directed NS FreeStyle Robert 2 Sensor (flash glucose sensor) As directed NS furosemide 40 mg PO BID hydralazine 10 mg PO BID insulin glargine (Lantus Solostar U-100 Insulin) 38 Units AM and 36 Units PM subcutaneously 2 times a day; 90 days insulin lispro See Protocol Sliding Scale: 150-200 Give 2 units 201-250 Give 4 units 251-300 Give 6 units 301-350 Give 8 units 351-400 Give 10 units 401-450 Give 12 units > 450 Give 12 units & call subcutaneously 4 times a day; lisinopril 10 mg See Protocol PO DAILY miscellaneous medical supply Oxygen?concentrator. ?Daily?As directed. 999 days multivitamin 1 tab PO DAILY sodium polystyrene sulfonate 15 grams PO 3XW venlafaxine ER 75 mg PO DAILY venlafaxine ER (Effexor XR) 37.5 mg PO BID Do you need a note to return to daycare/school/sports/work: No HPI HPI Obstructive sleep apnea: Details: THIS 69 YEARS OLD VERY PLEASANT FEMALE, WHO HAS HISTORY OF GROSS OBESITY AND OBSTRUCTIVE SLEEP APNEA, HAS BEEN HAVING LOT OF COUGH, WHICH SEEMS TO HAVE IMPROVED SINCE HER LAST VISIT OVER HERE. TODAY SHE WAS NOT ABLE TO COME TO THE OFFICE PERSONALLY SO A TELE VISIT WAS CONDUCTED. SHE CLAIMS THAT HER COUGH IS DOWN TO MINIMAL, AND SHE IS NOT USING ANY INHALERS OR ANY COUGH MEDICINE. SHE HAS HISTORY OF OBSTRUCTIVE SLEEP APNEA DUE TO HER GROSS OBESITY, AND LATELY BECAUSE SHE WAS SICK AND HAVING LOT OF COUGH SHE HAS NOT BEEN USING THE CPAP. SHE DOES USE OXYGEN MOSTLY 2 L/MINUTE AND SOMETIMES HAS TO INCREASE TO 3 L/MINUTE. DENIES ANY WHEEZING, AND DOES NOT NEED TO USE ANY BRONCHODILATOR INHALER. 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 CAP (community acquired pneumonia) Morbid (severe) obesity due to excess calories Chronic renal failure Secondary aldosteronism Acute renal failure Nocturnal hypoxemia Diabetes type 2, controlled HTN (hypertension) Morbid obesity due to excess calories AMY (obstructive sleep apnea) Pneumonia Obesity Elevated creatine kinase Congestive heart failure High cholesterol Diabetes type 2, uncontrolled Surgical History History of surgery History of D&C Family History Father Stroke Mother Stroke Hypertension Diabetes Maternal Grandmother Diabetes Hypertension Stroke Sister Diabetes Breast cancer Son Bipolar 1 disorder Overweight Other Mental health problem Substance abuse Social History Household Members: Children Housing: House Do you presently have visiting nurse or other home services: No Unable to assess alcohol history related to: Unable to respond Alcohol intake: current Alcohol intake frequency: holidays/special occasions only Patient Tobacco Use Status: Former Tobacco user e-Cigarette/Vaping Use: Never Used Second Hand Smoke Exposure: No Advance Directives Date on File: 06/09/21 service: No Current occupational status: retired Cognitive needs: No Hearing needs: No Vision needs: Yes Review of Systems Const All systems reviewed & are unremarkable except as noted in HPI and below Eyes Reports no additional complaints ENT Reports no additional complaints and Reports nasal congestion (Mild intermittent) Card Denies chest pain, Denies irregular heart rhythm, Reports leg edema (Only minimal at this time) and Reports dyspnea on exertion (Mild) Resp Reports cough (Mild intermittent), Reports dyspnea on exertion (Mild) and Denies wheezing GI Reports no additional complaints Reports no additional complaints Musc Reports no additional complaints Skin/Breast Reports system reviewed and no additional complaints, except as documented Neuro Reports no additional complaints Psych Reports no additional complaints Aller/Immun Denies wheezing Physical Exam TELE VISIT . SO NO PHYSICAL EXAMINATION PERFORMED. Telehealth Telehealth Telehealth Platform: Telephone Location of provider rendering services: practice address Location of patient: address on file Patient Identification confirmed using: Name, : Yes Telehealth method: voice only Patient verbally consented to treatment: Yes Patient verbally consented to billing insurance company: Yes Patient informed of any privacy concerns related to visit: Yes Minutes spent on Phone/Video with Pt.: 20 Results Reviewed Results Reviewed: CT SCAN OF THE CHEST IS PERFORMED ON 03/31. NOT OFFICIALLY READ BY RADIOLOGY YET. I HAVE LOOKED AT THE SCAN AND THERE IS EVIDENCE OF EXTENSIVE INTERSTITIAL LUNG DISEASE ON BOTH SIDES. Assessment & Plan Assessment & Plan (1) Morbid obesity: Comment: PATIENT CONTINUES TO BE MORBIDLY OBESE. IS DIFFICULT FOR HER TO LOSE WEIGHT. Code(s): E66.01 - Morbid (severe) obesity due to excess calories Category: Medical Plan: ADVISE TO STAY PHYSICALLY ACTIVE MUCH SHE CAN. (2) AMY on CPAP: Comment: This patient has been a very regular user of CPAP in the past. Recently she has not been able to use the CPAP because of her frequent bouts cough. Code(s): G47.33 - Obstructive sleep apnea (adult) (pediatric); Z99.89 - Dependence on other enabling machines and devices Category: Medical Plan: NOW THAT THE COUGH IS DOWN TO MINIMAL SHE IS ADVISED TO START USING THE CPAP AT NIGHT REGULARLY. (3) Respiratory failure with hypoxia: Comment: She has persistent hypoxemia at rest as well as on minimal exercise. This seems to be due to combination of interstitial lung disease and congestive heart failure. Code(s): J96.91 - Respiratory failure, unspecified with hypoxia Category: Medical Plan: PATIENT HAS BEEN STARTED ON OXYGEN THERAPY. SHE IS ADVISED TO USE O2 2 L/MINUTE AT REST, AND MAY INCREASE TO 3 L/MINUTE IF SHE IS WALKING AROUND OR FEELS MORE SHORT OF BREATH. (4) Interstitial lung disease: Comment: Persistent infiltrate in the right lung , indicates possible alveolitis/interstitial lung disease. CT scan of the chest performed but official reading is pending. Code(s): J84.9 - Interstitial pulmonary disease, unspecified Category: Medical Plan: At present we will treat her with oxygen administration. If symptoms get any worse such as exacerbation of cough or wheezing she may need to be treated with steroids. Will recheck her in 2 months, hopefully in the office. Coding Level of Care Code Tele Est Pt Level 3 (43617) Diagnoses Morbid obesity E66.01 AMY on CPAP G47.33; Z99.89 Respiratory failure with hypoxia J96.91 Interstitial lung disease J84.9
== END 2024-04-02 15:08 | disposition home or self-care (01) ==
LOC: HO.HPS 14:53
PROVIDERS: PCP Family Medicine; Visit Provider Internal Medicine
DX: G47.33 Obstructive sleep apnea (adult) (pediatric) (principal); Z99.89 Dependence on other enabling machines and devices; J96.91 Respiratory failure, unspecified with hypoxia; J84.9 Interstitial pulmonary disease, unspecified
CPT/HCPCS: G2252

== ENCOUNTER → 2024-04-02 14:53 | Outpatient (BNVA) | payer MEDICARE, SELFPAY | PROVIDERS: PCP Family Medicine; Visit Provider Internal Medicine ==

== ENCOUNTER 2024-04-13 11:36 | Outpatient (REF) | payer MEDICARE, SELFPAY ==
[2024-04-13 13:19] LABS: MANUAL DIFF FLAG NO
[2024-04-13 13:28] LABS: Basophils Absolute Auto 0.1 X10*3/uL (0.0-0.2); Basophils Percent Auto 0.6 % (0-2); Eosinophils Absolute Auto 0.4 X10*3/uL (0.0-0.4); Eosinophils Percent Auto 4.2 % (0-4); Hemoglobin 7.2 g/dl (12.0-16.0); Imm Gran Abs Auto 0.06 X10*3/uL (0.00-0.03); Imm Gran Pct Auto 0.6 % (0.0-0.4); Lymphocytes Percent Auto 9.9 % (20-40); Mean Platelet Volume 10.9 fL (9.4-12.3); Monocytes Absolute Auto 0.6 X10*3/uL (0.1-1.2); Monocytes Percent Auto 5.9 % (2-11); Neutrophils Absolute Auto 8.2 x10*3/uL (2.0-8.3); Neutrophils Percent Auto 78.8 % (45-73); Platelet Count 333 X10*3/uL (160-400); Red Cell Distribution Width 14.8 % (11.0-16.0); White Blood Count 10.5 X10*3/uL (4.8-10.8)
[2024-04-13 13:54] LABS: Alanine Aminotransferase 12 U/L (0-31); Albumin Level 2.6 g/dL (3.5-5.0); Alkaline Phosphatase 140 U/L (39-117); Anion Gap 12 (12-20); Aspartate Amino Transferase 13 U/L (5-31); Bilirubin Total 0.2 mg/dL (0.0-1.0); Blood Urea Nitrogen 50 mg/dL (9-16); Calcium 8.6 mg/dL (8.4-10.2); Carbon Dioxide 21 mmol/L (22-29); Chloride 114 mmol/L (96-108); Estimated Glomerular Filt Rate 16; Glucose Random 355 mg/dL (60-115); Potassium 4.7 mmol/L (3.3-5.1); Sodium 142 mmol/L (135-145)
== END 2024-04-13 11:37 | disposition home or self-care (01) ==
LOC: HO.HMGCLDS 11:36
PROVIDERS: PCP Family Medicine; Visit Provider Family Medicine
DX: Z00.00 Encounter for general adult medical examination without abnormal findings (principal); D64.9 Anemia, unspecified
CPT/HCPCS: 36415; 80053; 85025

== ENCOUNTER 2024-04-17 11:35 | Outpatient (AMB) | payer MEDICARE, SELFPAY ==
[2024-04-17 11:49] VITALS: BP 98/56; PULSE 68; O2SAT 96
--- NOTE | 2024-04-17 11:49 | A.OFFPC_ITS ---
Vital Signs 04/17/24 11:49 Height 5 ft 2 in BMI Reason not done Patient refused/unable BP 98/56 L Blood Pressure Location Rt brachial Position Sitting Pulse 68 Pulse Source Pulse Oximeter Pulse Oximetry (%) 96 Oxygen Delivery Method Room Air Oxygen Flow Rate 3 Intake Visit Reasons: f/u chronic conditions - see comments Intake Note: Patient is here to follow up on chronic conditions and would like to talk about fluid build up, and would like to talk about visit with Dr. Morillo. Allergies penicillin V Allergy (Severe, Verified 04/17/24 11:53) joint swelling and rash amlodipine [From [facility]] Adverse Reaction (Intermediate, Verified 04/17/24 11:53) edema Tobacco use date assessed: 04/17/24 Dental Screening Dental Screen Date: 02/03/24 HPI f/u chronic conditions - see comments HPI Details 69 y/o female presents to f/u diabetes a nd chronic conditions. Had referred to Hematology-Oncology for anemia. Labs were drawn 04/13/24. Reviewed labs with pt. Ongoing anemia. Last A1c 02/03/24 8.1%. Blood pressure today 98/56. She is on lisinopril 10mg daily. Pt notes she f/u with HemeOnc for her anemia and endocrinology for her diabetes. Pt records 5 instances of low blood sugars, down to 50s. Pt notes however she does not eat regular meals. 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 CAP (community acquired pneumonia) Morbid (severe) obesity due to excess calories Chronic renal failure Secondary aldosteronism Acute renal failure Nocturnal hypoxemia Diabetes type 2, controlled HTN (hypertension) Morbid obesity due to excess calories AMY (obstructive sleep apnea) Pneumonia Obesity Elevated creatine kinase Congestive heart failure High cholesterol Diabetes type 2, uncontrolled Surgical History History of surgery History of D&C Family History Father Stroke Mother Stroke Hypertension Diabetes Maternal Grandmother Diabetes Hypertension Stroke Sister Diabetes Breast cancer Son Bipolar 1 disorder Overweight Other Mental health problem Substance abuse Social History Household Members: Children Housing: House Do you presently have visiting nurse or other home services: No Unable to assess alcohol history related to: Unable to respond Alcohol intake: current Alcohol intake frequency: holidays/special occasions only Patient Tobacco Use Status: Former Tobacco user e-Cigarette/Vaping Use: Never Used Second Hand Smoke Exposure: No Advance Directives Date on File: 06/09/21 service: No Current occupational status: retired Cognitive needs: No Hearing needs: No Vision needs: Yes Questionnaire Thrive Questionnaire Date Thrive assessed: 08/03/23 MARE-7 AMB Questionnaire MARE-7 Date MARE - 7 assessed: 02/03/24 Source: Developed by Drs. Ministerio Chirinos, Clementina iMke, Tru Calderon and colleagues, with an educational bryce from [employer]. Review of Systems Const Denies chills, Denies fatigue, Denies fever(s), Denies headache(s) and Denies weakness ENT Denies dizziness and Denies headache(s) Card Denies dyspnea Resp Denies cough, Denies dyspnea, Denies wheezing and Denies other (shortness of breath) Musc Denies numbness and Denies tingling Neuro Denies dizziness, Denies headache(s), Denies numbness, Denies tingling and Denies weakness Psych Denies anxiety and Denies depression Endo Denies fatigue Aller/Immun Denies wheezing Physical exam (Primary Care) Vital Signs: Last Vital Signs Pulse 68 04/17/24 11:49 BP 98/56 L 04/17/24 11:49 Pulse Ox 96 04/17/24 11:49 Oxygen Delivery Method Room Air 04/17/24 11:49 Oxygen Flow Rate 3 04/17/24 11:49 Tobacco/Smoking Status: Tobacco use Status Tobacco use date assessed 04/17/24 04/17/24 12:00 Patient Tobacco Use Status Former Tobacco user 04/17/24 11:53 e-Cigarette/Vaping Use Never Used 04/17/24 11:53 Thrive Assessment: Date of Thrive Assessment Date Thrive assessed 08/03/23 04/17/24 11:53 Const Other: Pale and somewhat short of breath General: well developed; No acute distress Nutritional Appearance: well nourished Orientation/consciousness: patient oriented x3 [facility] Head: Yes normocephalic and Yes atraumatic Eyes General: appearance normal, both eyes and all related structures Pupils: Equal, round and reactive pupils present EOM: EOMs intact bilaterally Resp Effort & Inspection: normal respiratory effort Auscultation: clear to auscultation bilaterally Cardio Rate: regular rate Rhythm: regular rhythm Heart sounds: Murmur heart sound present Neuro General: patient oriented x3 and gait normal Cranial nerves: Yes Equal, round and reactive pupils present Extrem Other: LE Edema Psych Affect: normal affect Assessment and Plan Assessment & Plan (1) Anemia: Code(s): D64.9 - Anemia, unspecified Plan: Significant?anemia?and?on?examination,?patient?is?quite?pale?and?somewhat?short? of?breath?with?comorbidity?of?respiratory?failure?and?hypoxia?with? interstitial?lung?disease. Increased?murmur Some?lower?extremity?edema?and?low?blood?pressure Advised?patient?go?to?the?emergency?department?and?her?son?will?take?her?now?as? she?does?not?appear?to?be?in?acute?distress. (2) Hypertension, essential: Code(s): I10 - Essential (primary) hypertension Plan: Blood?pressure?is?too?low She?has?already?taken?her?1st?carvedilol?today?and?I?advised?her?to?hold?her?2nd ?dose?for?today. (3) Respiratory failure with hypoxia: Comment: She has persistent hypoxemia at rest as well as on minimal exercise. This seems to be due to combination of interstitial lung disease and congestive heart failure. Code(s): J96.91 - Respiratory failure, unspecified with hypoxia Plan: Followed?by??Ilia Kim?notes?interstitial?fibrosis?seen?on?CT?scan Recent?respiratory?infection Currently?however?patient?has?significant?anemia?complicating?her?hypoxemia?and? I?am?sending?her?to?the?ED (4) Diabetes type 2, uncontrolled: Code(s): E11.65 - Type 2 diabetes mellitus with hyperglycemia Qualifiers: Coma presence: without coma Glycemic state: with hypoglycemia Qualified Code(s): E11.649 - Type 2 diabetes mellitus with hypoglycemia without coma Plan: Blood?sugars?are?consistent?elevated?though?she?has?had?a?couple?of?low?blood?burrell gars. We?discussed?having?her?increase?her?evening?Lantus?to?38?units; she?will?take?38?units?b.i.d. No?changes?to?her?lispro?sliding?scale Coding Level of Care Code Est Pt Level 4 (59160) Diagnoses Anemia D64.9 Hypertension, essential I10 Respiratory failure with hypoxia J96.91 Uncontrolled type 2 diabetes mellitus with hypoglycemia without coma E11.649 Coma presence: without coma Glycemic state: with hypoglycemia
== END 2024-04-17 12:37 | disposition home or self-care (01) ==
PROVIDERS: PCP Family Medicine; Visit Provider Family Medicine
DX: D64.9 Anemia, unspecified (principal); I10 Essential (primary) hypertension; J96.91 Respiratory failure, unspecified with hypoxia; E11.649 Type 2 diabetes mellitus with hypoglycemia without coma
CPT/HCPCS: 99214

== ENCOUNTER 2024-04-17 14:18 | Emergency (ER) | payer MEDICARE, SELFPAY ==
[2024-04-17] VITALS (8 sets, daily range): BP systolic 00–208; BP diastolic 00–86; PULSE 67–70; RESP 15–20; TEMP 36.6–36.8; O2SAT 97–100; BMI 43.9
--- NOTE | 2024-04-17 14:30 | ED.GENADULT ---
HPI - General Adult General Chief complaint: General Medical Stated complaint: needs blood transfusion sent in by pcp Time Seen by Provider: 04/17/24 15:50 History of Present Illness ED Provider: Dr. Rosas HPI narrative: 69 y/o F patient; PMH HFpEF, CKD 3, IDDM, HLD, HTN, AMY on CPAP, interstitial lung disease on chronic 2L NC O2, anemia, atrial fibrillation on Eliquis; presents on recommendation of PCP for emergent blood transfusion. The patient was previously admitted to this hospital from 08/01 - 08/07/2023 for anemia with occult blood positive stool. EGD and colonoscopy performed on 08/06/2023 showed no discrete area of bleeding. Recommended at that time to start anticoagulation and continue following with gastroenterology. Patient states she is scheduled to meet with hematology for the first time in 1 month. She denies: syncope, SOB, chest pain, nausea/vomiting. She states she has chronically dark stool as she is on daily iron. Related Data Home Medications ?Medication ?Instructions ?Recorded ?Confirmed ascorbic acid (vitamin C) 500 mg 500 mg PO DAILY 09/22/20 03/17/24 tablet fexofenadine 180 mg tablet 180 mg PO DAILY 09/22/20 03/17/24 multivitamin 1 tab PO DAILY 09/12/22 03/17/24 ferrous sulfate 325 mg (65 mg 325 mg PO DAILY 11/27/22 03/17/24 iron) tablet insulin lispro 100 unit/mL See Rx Instructions subcut QID 08/01/23 03/17/24 subcutaneous pen sodium polystyrene sulfonate 15 g PO 3XW 08/01/23 03/17/24 venlafaxine 37.5 mg 37.5 mg PO BID 11/14/23 03/17/24 capsule,extended release 24 hr (Effexor XR) venlafaxine 75 mg capsule,extended 75 mg PO DAILY 02/03/24 03/17/24 release 24 hr Previous Rx's ?Medication ?Instructions ?Recorded aspirin 81 mg chewable tablet 81 mg PO DAILY #30 tabs 09/16/22 FreeStyle Robert 2 [place] (flash #1 ea 12/24/22 glucose scanning reader) insulin glargine 100 unit/mL (3 See Rx Instructions subcut BID 90 10/15/23 mL) subcutaneous pen (Lantus days #18 mL Solostar U-100 Insulin) hydralazine 10 mg tablet 10 mg PO BID #60 tabs 12/17/23 lisinopril 10 mg tablet 10 mg PO DAILY #90 tabs 01/01/24 carvedilol 25 mg tablet 25 mg PO BID@0900,1500 90 days #90 01/07/24 tabs atorvastatin 80 mg tablet 80 mg PO BEDTIME 90 days #90 tabs 01/20/24 miscellaneous medical supply #1 ea 02/03/24 cholecalciferol (vitamin D3) 1,250 1,250 mcg PO PISANO@0900 90 days #13 02/19/24 mcg (50,000 unit) capsule caps apixaban 5 mg tablet (Eliquis) 5 mg PO BID #60 tabs 03/02/24 furosemide 40 mg tablet 40 mg PO BID #60 tabs 04/08/24 FreeStyle Robert 2 Sensor (flash #2 ea 04/16/24 glucose sensor) Allergies Allergy/AdvReac Type Severity Reaction Status Date / Time penicillin V Allergy Severe joint Verified 04/17/24 14:32 swelling and rash [facility] AdvReac Intermediate edema Verified 04/17/24 14:32 Review of Systems Review of Systems: Yes all other systems are reviewed and are negative PMFSH Past Medical History Attestation statement: The following information was validated with the patient. 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 CAP (community acquired pneumonia) Morbid (severe) obesity due to excess calories Chronic renal failure Secondary aldosteronism Acute renal failure Nocturnal hypoxemia Diabetes type 2, controlled HTN (hypertension) Morbid obesity due to excess calories AMY (obstructive sleep apnea) Pneumonia Obesity Elevated creatine kinase Congestive heart failure High cholesterol Diabetes type 2, uncontrolled Surgical History History of surgery History of D&C Family History Family History Father Stroke Mother Stroke Hypertension Diabetes Maternal Grandmother Diabetes Hypertension Stroke Sister Diabetes Breast cancer Son Bipolar 1 disorder Overweight Other Mental health problem Substance abuse Social History Social History Household Members: Children Housing: House Do you presently have visiting nurse or other home services: No Unable to assess alcohol history related to: Unable to respond Alcohol intake: current Alcohol intake frequency: holidays/special occasions only Patient Tobacco Use Status: Former Tobacco user e-Cigarette/Vaping Use: Never Used Second Hand Smoke Exposure: No Advance Directives: Yes Advance Directives on File: Yes Advance Directives Date on File: 06/09/21 Do you have a plan to hurt others: No Plan service: No Current occupational status: retired Cognitive needs: No Hearing needs: No Vision needs: Yes Physical Exam ED Vital Signs: Vital Signs - 24 hr 04/17/24 14:27 04/17/24 16:25 04/17/24 16:48 Temperature 97.9 F 98.1 F 98.3 F Pulse Rate 68 68 67 Respiratory Rate 18 20 18 Blood Pressure 138/44 L 180/72 H 189/79 H Pulse Oximetry 100 97 Oxygen Delivery Method Nasal Cannula Nasal Cannula Oxygen Flow Rate 2 04/17/24 17:06 04/17/24 17:09 04/17/24 18:53 Temperature 97.9 F 97.9 F 98.3 F Pulse Rate 69 69 70 Respiratory Rate 18 15 18 Blood Pressure 196/81 H 196/81 H 208/86 H Pulse Oximetry 98 Oxygen Delivery Method Nasal Cannula Oxygen Flow Rate 2 04/17/24 19:31 Temperature 98.3 F Pulse Rate 67 Respiratory Rate 18 Blood Pressure 203/82 H Pulse Oximetry 97 Oxygen Delivery Method Room Air Oxygen Flow Rate BMI result Body Mass Index 43.9 Patient is afebrile and hemodynamically stable. Const General: cooperative and no acute distress Orientation/consciousness: patient oriented x3 HEN[facility] Head: Yes normal to inspection and Yes atraumatic Eyes General: appearance normal, both eyes and all related structures Pupils: Equal, round and reactive pupils present EOM: EOMs intact bilaterally Neck Neck: Yes normal visual inspection and Yes full ROM Chest Chest palpation & inspection: normal inspection of the chest and normal palpation of entire chest wall Resp Effort & Inspection: normal respiratory effort, able to speak in complete sentences, no cough and no respiratory distress Auscultation: clear to auscultation bilaterally Cardio Rate: regular rate Rhythm: regular rhythm Peripheral pulses: Peripheral pulses 2+ throughout GI Inspection: Yes normal to inspection, No Abdominal wall edema and No distended Palpation (GI): Soft to palpation, not firm, nontender, no guarding and not rigid Auscultation: normal bowel sounds Neuro General: patient oriented x3 Cranial nerves: Yes Equal, round and reactive pupils present Course Course Course Narrative: RME performed by Winter Young PA-C. Patient is a 69 year old assigned female at presenting to the emergency department with need for blood transfusion. Patient states she was told by her PCP to come in to get a transfusion by her PCP office. Detailed physical exam and review of systems are deferred to the scrubber system attendant. EKG and labs ordered. Patient placed back in the waiting room pending room availability and results. Reevaluation(s) Reevaluation #1: Patient is afebrile and hemodynamically stable. Reviewed triage orders. Hgb today 7.4, baseline Hgb 8.3 - 9.6. Will provide 1u pRBC. Mild PACHECO, Cr 3.54 (previously 2.89 on 04/13/2024). Patient reports significant improvement following pRBC transfusion. Able to ambulate without difficulty. On home O2 NC. Shared decision making with patient - she would prefer discharge to home with out-patient hematology follow up. Discussed calling office to expedite visit. Plan: Discharge to home with hematology, GI, and PCP follow up Return precautions given Medications Administered Discontinued Medications Generic Name Dose Route Start Last Admin Trade Name Freq PRN Reason Stop Dose Admin Sodium Chloride 100 mls @ 100 mls/hr 04/17/24 16:08 04/17/24 18:53 Ns IV 04/17/24 17:07 Infused ONCE ONE Infusion Medical Decision Making Lab Data 04/17/24 14:49 04/17/24 14:49 Labs: Lab Results 04/17/24 Range/Units 14:49 WBC 12.3 H (4.8-10.8) X10*3/uL RBC 2.48 L (4.20-5.50) X10*6/uL Hgb 7.4 L (12.0-16.0) g/dl Hct 24.5 L (37.0-47.0) % MCV 98.8 H (80.0-98.0) fL MCH 29.8 (27.0-33.0) pg MCHC 30.2 L (31.0-35.0) g/dl RDW 15.3 (11.0-16.0) % Plt Count 326 (160-400) X10*3/uL MPV 10.0 (9.4-12.3) fL Immature Gran % (Auto) 0.6 H (0.0-0.4) % Neut % (Auto) 75.8 H (45-73) % Lymph % (Auto) 12.8 L (20-40) % Smith % (Auto) 6.5 (2-11) % Eos % (Auto) 3.7 (0-4) % Baso % (Auto) 0.6 (0-2) % Lymph # (Auto) 1.6 (1.2-4.9) X10*3/uL Smith # (Auto) 0.8 (0.1-1.2) X10*3/uL Eos # (Auto) 0.5 H (0.0-0.4) X10*3/uL Baso # (Auto) 0.1 (0.0-0.2) X10*3/uL Abs Immat Gran (auto) 0.07 H (0.00-0.03) X10*3/uL Absolute Neuts (auto) 9.3 H (2.0-8.3) x10*3/uL Absolute Nucleated RBC 0.000 (0.0-0.012) X10*3/uL Nucleated RBC % (auto) 0.0 (0.0-0.2) /100WBC PT 13.2 (11.1-13.3) SEC INR 1.1 (0.9-1.1) APTT 32.3 (26.0-36.8) SEC Sodium 143 (135-145) mmol/L Potassium 5.1 (3.3-5.1) mmol/L Chloride 111 H (96-108) mmol/L Carbon Dioxide 24 (22-29) mmol/L Anion Gap 13 (12-20) BUN 66 H (9-16) mg/dL Creatinine 3.54 H (0.5-1.4) mg/dL Estim Creat Clear Calc 17.2 Estimated GFR 13 Random Glucose 141 H (60-115) mg/dL Calcium 8.5 (8.4-10.2) mg/dL Magnesium 1.9 (1.6-2.6) mg/dL Total Bilirubin 0.1 (0.0-1.0) mg/dL AST 17 (5-31) U/L ALT 16 (0-31) U/L Alkaline Phosphatase 144 H (39-117) U/L Total Protein 6.4 L (6.5-8.0) g/dL Albumin 2.8 L (3.5-5.0) g/dL Influenza Type A (PCR) NEGATIVE (Negative) Influenza Type B (PCR) NEGATIVE (Negative) RSV RNA Qual (PCR) NEGATIVE (Negative) SARS-CoV-2 RNA (RT-PCR) NEGATIVE (Negative) Blood Type O Positive Antibody Screen NEGATIVE Crossmatch See Detail Discharge Plan Discharge Clinical Impression: Anemia Patient Disposition: Home, Self-Care Instructions: Anemia (ED) Additional Instructions: As we discussed, you were seen today for anemia. You received 1 unit of red blood cell transfusion. It is important that you follow up with your PCP, hematology, and GI within the next 2 days. Return to the emergency department for: Passing out Chest pain Difficulty breathing, or increase in your level of home oxygen Prescriptions: No Action (DME) FreeStyle Robert 2 [place] Misc See Rx Instructions .Route Qty: 1 0RF Rx Instructions: As directed Lantus Solostar U-100 Insulin 100 unit/mL (3 mL) insulin pen See Rx Instructions subcut BID 90 Days Qty: 18 12RF Rx Instructions: 38 Units AM and 36 Units PM subcutaneously 2 times a day; lisinopril 10 mg tablet 10 mg PO DAILY Qty: 90 3RF Protocol: Hold for SBP< HOLD for SBP < : 90 carvedilol 25 mg tablet 25 mg PO BID@0900,1500 90 Days Qty: 90 2RF Rx Instructions: must administer with a meal/food atorvastatin 80 mg tablet 80 mg PO BEDTIME 90 Days Qty: 90 3RF cholecalciferol (vitamin D3) 1,250 mcg (50,000 unit) capsule 1,250 mcg PO PISANO@0900 90 Days Qty: 13 0RF Eliquis 5 mg tablet 5 mg PO BID Qty: 60 1RF Rx Instructions: INITIATE ON 08/11 furosemide 40 mg tablet 40 mg PO BID Qty: 60 2RF (DME) FreeStyle Robert 2 Sensor Kit See Rx Instructions .Route Qty: 2 5RF Rx Instructions: As directed multivitamin Tablet 1 tab PO DAILY aspirin 81 mg Tablet,Chewable 81 mg PO DAILY Qty: 30 0RF ferrous sulfate 325 mg (65 mg iron) Tablet 325 mg PO DAILY sodium polystyrene sulfonate Powder 15 g PO 3XW insulin lispro 100 unit/mL insulin pen See Rx Instructions subcut QID Protocol: Insulin Correction Scale Less than or equal to 110 ---- Give (units): 0 111 to 150 Give (units): 0 151 to 200 Give (units): 2 201 to 250 Give (units): 4 251 to 300 Give (units): 6 301 to 350 Give (units): 8 Greater than 350 Give (units): 10 Call MD if Blood Glucose > : 350 Rx Instructions: Sliding Scale: 150-200 Give 2 units 201-250 Give 4 units 251-300 Give 6 units 301-350 Give 8 units 351-400 Give 10 units 401-450 Give 12 units > 450 Give 12 units & call MD subcutaneously 4 times a day; fexofenadine 180 mg tablet 180 mg PO DAILY ascorbic acid (vitamin C) 500 mg tablet 500 mg PO DAILY venlafaxine 75 mg capsule,extended release 24hr 75 mg PO DAILY (DME) miscellaneous medical supply [facility] See Rx Instructions .ROUTE .MEDSUPPLY Qty: 1 0RF Rx Instructions: Oxygen?concentrator. ?Daily?As directed. 999 days venlafaxine [Effexor XR] 37.5 mg capsule,extended release 24hr 37.5 mg PO BID hydralazine 10 mg tablet 10 mg PO BID Qty: 60 6RF Referrals: Sadi Harden MD [Primary Care Provider] - 2 days [facility] [place] [facility] [Provider Group] - 2 days [facility] [place] [Provider Group] - 2 days Print Language: Upper Sorbian
--- NOTE | 2024-04-17 14:34 | ECG_ITS ---
Test Reason : WEAKNESS Blood Pressure : / mmHG Vent. Rate : 069 BPM Atrial Rate : 069 BPM P-R Int : 176 ms QRS Dur : 090 ms QT Int : 406 ms P-R-T Axes : 008 005 074 degrees QTc Int : 435 ms Normal sinus rhythm Minimal voltage criteria for LVH, may be normal variant ( R in aVL ) Borderline ECG When compared with ECG of 15-FEB-2024 10:00, No significant change was found Referred By: Winter Young Electronically Signed By:NICHOLE GARVIN MD
[2024-04-17 14:54] LABS: MANUAL DIFF FLAG NO
[2024-04-17 14:57] LABS: Basophils Absolute Auto 0.1 X10*3/uL (0.0-0.2); Basophils Percent Auto 0.6 % (0-2); Eosinophils Absolute Auto 0.5 X10*3/uL (0.0-0.4); Eosinophils Percent Auto 3.7 % (0-4); Hematocrit 24.5 % (37.0-47.0); Hemoglobin 7.4 g/dl (12.0-16.0); Imm Gran Abs Auto 0.07 X10*3/uL (0.00-0.03); Imm Gran Pct Auto 0.6 % (0.0-0.4); Lymphocytes Absolute Auto 1.6 X10*3/uL (1.2-4.9); Lymphocytes Percent Auto 12.8 % (20-40); Mean Corpuscular HGB Conc 30.2 g/dl (31.0-35.0); Mean Corpuscular Hemoglobin 29.8 pg (27.0-33.0); Mean Corpuscular Volume 98.8 fL (80.0-98.0); Monocytes Absolute Auto 0.8 X10*3/uL (0.1-1.2); Monocytes Percent Auto 6.5 % (2-11); Neutrophils Absolute Auto 9.3 x10*3/uL (2.0-8.3); Neutrophils Percent Auto 75.8 % (45-73); Platelet Count 326 X10*3/uL (160-400); Red Blood Count 2.48 X10*6/uL (4.20-5.50); Red Cell Distribution Width 15.3 % (11.0-16.0); White Blood Count 12.3 X10*3/uL (4.8-10.8)
[2024-04-17 15:02] LABS: INTERNATIONAL NORM RATIO 1.1 (0.9-1.1); Prothrombin Time 13.2 SEC (11.1-13.3)
[2024-04-17 15:05] LABS: Partial Thromboplastin Time 32.3 SEC (26.0-36.8)
[2024-04-17 15:09] LABS: Alanine Aminotransferase 16 U/L (0-31); Albumin Level 2.8 g/dL (3.5-5.0); Alkaline Phosphatase 144 U/L (39-117); Anion Gap 13 (12-20); Aspartate Amino Transferase 17 U/L (5-31); Bilirubin Total 0.1 mg/dL (0.0-1.0); Blood Urea Nitrogen 66 mg/dL (9-16); Calcium 8.5 mg/dL (8.4-10.2); Carbon Dioxide 24 mmol/L (22-29); Chloride 111 mmol/L (96-108); Creatinine Clr Calc Pharmacy 17.2; Estimated Glomerular Filt Rate 13; Glucose Random 141 mg/dL (60-115); Magnesium 1.9 mg/dL (1.6-2.6); Potassium 5.1 mmol/L (3.3-5.1); Sodium 143 mmol/L (135-145); Total Protein 6.4 g/dL (6.5-8.0)
[2024-04-17 15:51] LABS: Influenza A PCR NEGATIVE (Negative); Influenza B PCR NEGATIVE (Negative); Resp Syncy Virus RNA Qual PCR NEGATIVE (Negative); SARS COV2 PCR INHOUSE NEGATIVE (Negative)
== END 2024-04-17 20:35 | disposition home or self-care (01) ==
PROVIDERS: Physician Assistant Medical; Emergency Provider Emergency Medicine; PCP Family Medicine
DX: D64.9 Anemia, unspecified (principal); R94.31 Abnormal electrocardiogram [ECG] [EKG]; J84.9 Interstitial pulmonary disease, unspecified; I48.91 Unspecified atrial fibrillation; Z99.81 Dependence on supplemental oxygen; Z79.01 Long term (current) use of anticoagulants; Z03.818 Encounter for observation for suspected exposure to other biological agents ruled out; Z79.899 Other long term (current) drug therapy
CPT/HCPCS: 0241U; 36415; 36430; 80053; 83735; 85025; 85610; 85730; 86850; 86900; 86901; 86923; 93005; 96360; 96361; 99284; 99285; P9016

== ENCOUNTER → 2024-04-17 14:34 | Outpatient (BNV) | payer MEDICARE, SELFPAY | PROVIDERS: Emergency Provider Emergency Medicine; PCP Family Medicine; Visit Provider Internal Medicine Cardiovascular Disease | DX: R94.31 Abnormal electrocardiogram [ECG] [EKG] (principal); R53.1 Weakness | CPT/HCPCS: 93010 ==

== ENCOUNTER → 2024-05-19 08:45 | Outpatient (BNV) | payer MEDICARE, SELFPAY | PROVIDERS: PCP Family Medicine; Referring Provider Family Medicine; Visit Provider Internal Medicine Medical Oncology | DX: N18.4 Chronic kidney disease, stage 4 (severe) (principal); D63.1 Anemia in chronic kidney disease | CPT/HCPCS: 99204; 99213 ==

== ENCOUNTER 2024-05-29 16:20 | Outpatient (AMB) | payer MEDICARE, SELFPAY ==
--- NOTE | 2024-05-29 16:28 | A.OFFPC_ITS ---
Vital Signs 05/29/24 16:30 Height 5 ft 2 in Weight 246 lb 8 oz BMI 45.1 BP 130/80 Blood Pressure Location Rt brachial Position Sitting Respiration 16 Pulse 72 Pulse Source Pulse Oximeter Temp 97.6 F Temp Source Oral Pulse Oximetry (%) 96 Oxygen Delivery Method Nasal Cannula Oxygen Flow Rate 2 Intake Visit Reasons: f/u anemia, chronic conditions Intake Note: follow up anemia Allergies penicillin V Allergy (Severe, Verified 05/29/24 16:28) joint swelling and rash amlodipine [From [facility]] Adverse Reaction (Intermediate, Verified 05/29/24 16:28) edema Medication List - Last Reconciled 05/29/24 by Sadi Harden MD apixaban (Eliquis) 5 mg PO BID ascorbic acid (vitamin C) 500 mg PO DAILY aspirin 81 mg PO DAILY atorvastatin 80 mg PO BEDTIME 90 days carvedilol 25 mg PO BID@0900,1500 90 days cholecalciferol (vitamin D3) 1,250 mcg PO PISANO@0900 90 days ferrous sulfate 325 mg PO DAILY fexofenadine 180 mg PO DAILY FreeStyle Robert 2 [place] (flash glucose scanning reader) As directed NS FreeStyle Robert 2 Sensor (flash glucose sensor) As directed NS furosemide 40 mg PO BID hydralazine 10 mg PO BID insulin glargine (Lantus Solostar U-100 Insulin) 38 Units AM and 36 Units PM subcutaneously 2 times a day; 90 days insulin lispro See Protocol Sliding Scale: 150-200 Give 2 units 201-250 Give 4 units 251-300 Give 6 units 301-350 Give 8 units 351-400 Give 10 units 401-450 Give 12 units > 450 Give 12 units & call subcutaneously 4 times a day; lisinopril 10 mg See Protocol PO DAILY miscellaneous medical supply Oxygen?concentrator. ?Daily?As directed. 999 days multivitamin 1 tab PO DAILY sodium polystyrene sulfonate 15 grams PO 3XW venlafaxine ER 75 mg PO DAILY venlafaxine ER (Effexor XR) 37.5 mg PO BID Tobacco use date assessed: 04/17/24 Dental Screening Dental Screen Date: 02/03/24 HPI f/u anemia, chronic conditions HPI Details 69 y/o female presents to f/u anemia. Most recent labs drawn 05/19/24. Reviewed labs with pt. Ongoing anemia, improving - RBC 2.96, Hgb 9.0, Hct 28.5. Creatinine level 3.50. A1c today 05/29/24 is 7.1%. She notes she continues to f/u with Pulmonology, [facility]. [facility] Medical History Interstitial lung disease Respiratory failure with hypoxia Cough Anemia Hypertension, essential Exercise hypoxemia AMY on CPAP Morbid obesity Heme positive stool Atrial flutter Elevated serum creatinine 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 CAP (community acquired pneumonia) Morbid (severe) obesity due to excess calories Chronic renal failure Secondary aldosteronism Acute renal failure Nocturnal hypoxemia Diabetes type 2, controlled HTN (hypertension) Morbid obesity due to excess calories AMY (obstructive sleep apnea) Pneumonia Obesity Elevated creatine kinase Congestive heart failure High cholesterol Diabetes type 2, uncontrolled Surgical History History of surgery History of D&C Family History Father Stroke Mother Stroke Hypertension Diabetes Maternal Grandmother Diabetes Hypertension Stroke Sister Diabetes Breast cancer Son Bipolar 1 disorder Overweight Other Mental health problem Substance abuse Social History (Updated 05/19/24 @ 08:54 by Braxton Alan) Household Members: Children Housing: House Do you presently have visiting nurse or other home services: No Unable to assess alcohol history related to: Unable to respond Alcohol intake: current Alcohol intake frequency: holidays/special occasions only Patient Tobacco Use Status: Former Tobacco user e-Cigarette/Vaping Use: Never Used Second Hand Smoke Exposure: No Advance Directives Date on File: 06/09/21 service: No Current occupational status: retired Cognitive needs: No Hearing needs: No Vision needs: Yes Questionnaire Thrive Questionnaire Date Thrive assessed: 08/03/23 MARE-7 AMB Questionnaire MARE-7 Date MARE - 7 assessed: 02/03/24 Source: Developed by Drs. Ministerio Chirinos, Clementina Mike, Tru Calderon and colleagues, with an educational bryce from [employer]. Review of Systems Const Denies chills, Denies fatigue, Denies fever(s), Denies headache(s) and Denies weakness ENT Denies dizziness and Denies headache(s) Card Denies chest pain, Denies lightheadedness, Denies dyspnea and Denies other (Palpitations) Resp Denies cough, Denies dyspnea, Denies wheezing and Denies other ( shortness of breath) Musc Denies numbness and Denies tingling Neuro Denies dizziness, Denies headache(s), Denies numbness, Denies tingling, Denies paresthesias and Denies weakness Psych Denies anxiety and Denies depression Endo Denies fatigue Aller/Immun Denies wheezing Physical exam (Primary Care) Vital Signs: Last Vital Signs Temp 97.6 F 05/29/24 16:30 Pulse 72 05/29/24 16:30 Resp 16 05/29/24 16:30 BP 130/80 05/29/24 16:30 Pulse Ox 96 05/29/24 16:30 Oxygen Delivery Method Nasal Cannula 05/29/24 16:30 Oxygen Flow Rate 2 05/29/24 16:30 BMI result Body Mass Index 45.1 Tobacco/Smoking Status: Tobacco use Status Tobacco use date assessed 04/17/24 05/29/24 16:34 Patient Tobacco Use Status Former Tobacco user 05/29/24 16:34 e-Cigarette/Vaping Use Never Used 05/29/24 16:34 Thrive Assessment: Date of Thrive Assessment Date Thrive assessed 08/03/23 05/29/24 16:34 Const General: no acute distress and well developed Nutritional Appearance: well nourished and obese morbidly obese Orientation/consciousness: patient oriented x3 HENMT Head: Yes normocephalic and Yes atraumatic Eyes General: appearance normal, both eyes and all related structures Pupils: Equal, round and reactive pupils present EOM: EOMs intact bilaterally Resp Effort & Inspection: normal respiratory effort Auscultation: clear to auscultation bilaterally Cardio Rate: regular rate Rhythm: regular rhythm Heart sounds: S1 normal heart sound present, S2 normal heart sound present, no gallops, no murmurs and no rubs Neuro General: patient oriented x3 and gait normal Cranial nerves: Yes Equal, round and reactive pupils present Psych Affect: normal affect Assessment and Plan Assessment & Plan (1) Anemia: Code(s): D64.9 - Anemia, unspecified Plan: Patient?was?sent?to?the?ED?at?last?visit?due?to?significantly?low?H&H?with?numer ous?comorbidities She?was?transfused?1?unit?PRBCs More?recently?hemoglobin?is?9.6 She?had?an?appointment?with?her?hematology?oncologist?and?workup?is?underway Most?likely?has?anemia?of?chronic?disease. Follow-up?with?Hematology-Oncology?as?recommended (2) Chronic renal failure: Code(s): N18.9 - Chronic kidney disease, unspecified Plan: Chronic?renal?failure?and?followed?by?Dr. Sorto I?do?not?have?full,?most?recent?note?but?will?request?this. Patient?says??Cristina?is?discussing dialysis?with?her?and?she?will?likely?need?to?begin?this?in?the?near?future. Also?she?has?begun?Procrit?shots. Follow-up?with?nephrology?as?recommended (3) Hypertension, essential: Code(s): I10 - Essential (primary) hypertension Plan: Blood?pressure?is?fairly?well?controlled.??Goal?is?less?than?130/80 Continue?current?medications (4) Diabetes type 2, uncontrolled: Code(s): E11.65 - Type 2 diabetes mellitus with hyperglycemia Qualifiers: Coma presence: without coma Glycemic state: with hypoglycemia Qualified Code(s): E11.649 - Type 2 diabetes mellitus with hypoglycemia without coma Plan: A1c?much?improved?from?8.1%?down?to?7.1%?with?addition?of?Trulicity?and?increase ?of?Lantus Would?not?push?for?further?reduction?of?her?A1c.??Essentially?at?goal She?has?had?a?few?low?blood?sugars.??I?had?referred?her?to?endocrinology?but?her ?insurance?has?changed. Will?refer?her?to?endocrinology?at?[facility] No?changes?to?current?regimen.??Be?sure?to?have?regular?meals. (5) Respiratory failure with hypoxia: Comment: She has persistent hypoxemia at rest as well as on minimal exercise. This seems to be due to combination of interstitial lung disease and congestive heart failure. Code(s): J96.91 - Respiratory failure, unspecified with hypoxia Plan: Respiratory?failure?with?hypoxia?and?patient?is?oxygen?dependent. CT?scan?showed?likely?interstitial?fibrosis. Follow-up?with?pulmonology Continue?oxygen (6) Aortic stenosis: Code(s): I35.0 - Nonrheumatic aortic (valve) stenosis Qualifiers: Cardiac valve disease etiology: nonrheumatic Qualified Code(s): I35.0 - Nonrheumatic aortic (valve) stenosis Plan: History?of?aortic?stenosis?and?atrial?flutter.??She?is?on?apixaban Currently?stable Follow-up?with??Fili?as?recommended Coding Level of Care Code Est Pt Level 4 (68552) Diagnoses Anemia D64.9 Chronic renal failure N18.9 Hypertension, essential I10 Uncontrolled type 2 diabetes mellitus with hypoglycemia without coma E11.649 Coma presence: without coma Glycemic state: with hypoglycemia Respiratory failure with hypoxia J96.91 Nonrheumatic aortic valve stenosis I35.0 Cardiac valve disease etiology: nonrheumatic
[2024-05-29 16:30] VITALS: BP 130/80; PULSE 72; RESP 16; TEMP 36.4; O2SAT 96; BMI 45.1
== END 2024-05-29 17:01 | disposition home or self-care (01) ==
PROVIDERS: PCP Family Medicine; Visit Provider Family Medicine
DX: D64.9 Anemia, unspecified (principal); N18.9 Chronic kidney disease, unspecified; I12.9 Hypertensive chronic kidney disease with stage 1 through stage 4 chronic kidney disease, or unspecified chronic kidney disease; E11.649 Type 2 diabetes mellitus with hypoglycemia without coma; J96.91 Respiratory failure, unspecified with hypoxia; I35.0 Nonrheumatic aortic (valve) stenosis
CPT/HCPCS: 99214

== ENCOUNTER 2024-06-03 09:42 | Outpatient (AMB) | payer MEDICARE, SELFPAY ==
--- NOTE | 2024-06-03 09:44 | A.OFFVIS_ITS ---
Vital Signs 06/03/24 09:46 Height 5 ft 2 in Weight 240 lb BMI 43.9 BP 132/70 Blood Pressure Location Lt brachial Position Sitting Pulse 73 Pulse Source Pulse Oximeter Pulse Oximetry (%) 97 Oxygen Delivery Method Nasal Cannula Oxygen Flow Rate 2 Intake Visit Reasons: Obstructive sleep apnea Allergies penicillin V Allergy (Severe, Verified 06/03/24 09:49) joint swelling and rash amlodipine [From [facility]] Adverse Reaction (Intermediate, Verified 06/03/24 09:49) edema Medication List - Last Reconciled 06/03/24 by Yaquelin Mclean apixaban (Eliquis) 5 mg PO BID ascorbic acid (vitamin C) 500 mg PO DAILY aspirin 81 mg PO DAILY atorvastatin 80 mg PO BEDTIME 90 days carvedilol 25 mg PO BID@0900,1500 90 days cholecalciferol (vitamin D3) 1,250 mcg PO PISANO@0900 90 days ferrous sulfate 325 mg PO DAILY fexofenadine 180 mg PO DAILY FreeStyle Robert 2 [place] (flash glucose scanning reader) As directed NS FreeStyle Robert 2 Sensor (flash glucose sensor) As directed NS furosemide 40 mg PO BID hydralazine 10 mg PO BID insulin glargine (Lantus Solostar U-100 Insulin) 38 Units AM and 36 Units PM subcutaneously 2 times a day; 90 days insulin lispro See Protocol Sliding Scale: 150-200 Give 2 units 201-250 Give 4 units 251-300 Give 6 units 301-350 Give 8 units 351-400 Give 10 units 401-450 Give 12 units > 450 Give 12 units & call MD subcutaneously 4 times a day; lisinopril 10 mg See Protocol PO DAILY miscellaneous medical supply Oxygen?concentrator. ?Daily?As directed. 999 days multivitamin 1 tab PO DAILY sodium polystyrene sulfonate 15 grams PO 3XW venlafaxine ER 75 mg PO DAILY venlafaxine ER (Effexor XR) 37.5 mg PO BID Do you need a note to return to daycare/school/sports/work: No HPI HPI Obstructive sleep apnea: Details: Made he is 69 years old very pleasant morbidly obese female. She comes here for follow-up of sleep apnea, and hypoxemia. She has multiple comorbidities including chronic renal failure ,anemia , hyp,ertension diabetes mellitus, aortic stenosis, chronic interstitial disease of the right lung. Patient has not been able to use CPAP, and she uses oxygen 2 L/minute at night and also during the daytime. Breathing steel she has remained stable . She has only mild intermittent cough which is mostly nonproductive. Currently she is getting Procrit inj. therapy , and Hb/Hct. are slowly improving. 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 CAP (community acquired pneumonia) Morbid (severe) obesity due to excess calories Chronic renal failure Secondary aldosteronism Acute renal failure Nocturnal hypoxemia Diabetes type 2, controlled HTN (hypertension) Morbid obesity due to excess calories AMY (obstructive sleep apnea) Pneumonia Obesity Elevated creatine kinase Congestive heart failure High cholesterol Diabetes type 2, uncontrolled Surgical History History of surgery History of D&C Family History Father Stroke Mother Stroke Hypertension Diabetes Maternal Grandmother Diabetes Hypertension Stroke Sister Diabetes Breast cancer Son Bipolar 1 disorder Overweight Other Mental health problem Substance abuse Social History Household Members: Children Housing: House Do you presently have visiting nurse or other home services: No Unable to assess alcohol history related to: Unable to respond Alcohol intake: current Alcohol intake frequency: holidays/special occasions only Patient Tobacco Use Status: Former Tobacco user e-Cigarette/Vaping Use: Never Used Second Hand Smoke Exposure: No Advance Directives Date on File: 06/09/21 service: No Current occupational status: retired Cognitive needs: No Hearing needs: No Vision needs: Yes Review of Systems Const All systems reviewed & are unremarkable except as noted in HPI and below Eyes Reports no additional complaints ENT Reports no additional complaints and Reports nasal congestion (Mild intermittent) Card Denies chest pain, Denies irregular heart rhythm, Reports leg edema (Only minimal at this time) and Reports dyspnea on exertion (Mild) Resp Reports cough (Mild intermittent), Reports dyspnea on exertion (Mild) and Denies wheezing GI Reports no additional complaints Reports no additional complaints Musc Reports no additional complaints Skin/Breast Reports system reviewed and no additional complaints, except as documented Neuro Reports no additional complaints Psych Reports no additional complaints Aller/Immun Denies wheezing Physical Exam Vital Signs: Last Vital Signs Pulse 73 06/03/24 09:46 BP 132/70 06/03/24 09:46 Pulse Ox 97 06/03/24 09:46 Oxygen Delivery Method Nasal Cannula 06/03/24 09:46 Oxygen Flow Rate 2 06/03/24 09:46 BMI result Body Mass Index 43.9 Last Vital Signs Temp 97.2 F 08/05/23 11:29 Pulse 65 08/05/23 11:29 Resp 20 08/05/23 11:29 BP 121/59 L 08/05/23 11:29 Pulse Ox 96 08/05/23 11:29 O2 Del Method Nasal Cannula 08/05/23 11:29 O2 Flow Rate 2 08/05/23 11:29 Oxygen Flow Rate 4 08/01/23 13:21 BMI result Body Mass Index 43.9 Const Other: Patient is a morbidly obese with a round face, short and obese neck. .Physical features typical for obstructive sleep apnea General: comfortable, no acute distress, alert and awake Orientation/consciousness: patient oriented x3 HEENT Head: Yes normal to inspection General nose exam: No nasal polyps present and No nasal discharge present Face and sinus: Yes sinuses nontender Mouth: oropharynx abnormals (Very narrow and crowded oropharynx) Throat: Yes posterior oropharynx normal Eyes General: appearance normal, both eyes and all related structures Neck Neck: Yes normal visual inspection, Yes no lymphadenopathy, Yes trachea midline and Yes no JVD Thyroid: Thyroid normal Chest Chest palpation & inspection: normal inspection of the chest, normal palpation of entire chest wall and no tenderness Resp Other: Percussion note is not perceptible because of thick chest wall. Breath sounds are generally diminished especially over the basilar areas. There are a few inspiratory crepitations over the right mid chest and basilar areas. Cardio Palpation: PMI not normal (Not palpable) Rate: regular rate Rhythm: regular rhythm Heart sounds: no gallops and no murmurs GI Palpation (GI): Soft to palpation, nontender, No hepatosplenomegaly present and no masses Auscultation: normal bowel sounds Back/Spine/Pelvis Other: Not examine Thoracic/Lumbar Spine: thoracic and lumbar spine normal to inspection Skin General skin exam: no rashes or lesions noted Neuro General: patient oriented x3 and no focal motor deficits Cranial nerves: Yes CN's II-XII intact bilaterally Extrem General: Yes normal to inspection, Yes no calf tenderness and Yes edema (TRACE OF EDEMA OF THE LEGS) Psych Appearance: grossly normal Speech and movement: Normal speech and movement present Assessment & Plan Assessment & Plan (1) Interstitial lung disease: Comment: Persistent infiltrate in the right lung , indicates possible alveolitis/interstitial lung disease. clinically it is stable and not .very symptomatic at this time Code(s): J84.9 - Interstitial pulmonary disease, unspecified Category: Medical Plan: continue to use oxygen 2 L/minute (2) Cough: Comment: Has had quite bothersome cough in the past . At present cough is minimal and intermittent Code(s): R05.9 - Cough, unspecified Category: Medical Plan: no active treatment for cough control (3) Respiratory failure with hypoxia: Comment: She has persistent hypoxemia at rest as well as on minimal exercise. This seems to be due to combination of interstitial lung disease ,Anemia, and congestive heart failure. Code(s): J96.91 - Respiratory failure, unspecified with hypoxia Category: Medical Plan: continue to use O2 2 L/minute 24 hours a day (4) AMY on CPAP: Comment: This patient has longstanding history of obstructive sleep apnea and has been using CPAP very regularly in the past. now since the early part of this year she is not using CPAP because of cough. she is just using O2 2 L/minute at night. Code(s): G47.33 - Obstructive sleep apnea (adult) (pediatric); Z99.89 - Dependence on other enabling machines and devices Category: Medical Plan: OK to keep on using just O2 2 L/minute at night Coding Level of Care Code Est Pt Level 3 (82560) Diagnoses Interstitial lung disease J84.9 Cough R05.9 Respiratory failure with hypoxia J96.91 AMY on CPAP G47.33; Z99.89
[2024-06-03 09:46] VITALS: BP 132/70; PULSE 73; O2SAT 97; BMI 43.9
== END 2024-06-03 10:00 | disposition home or self-care (01) ==
PROVIDERS: PCP Family Medicine; Visit Provider Internal Medicine
DX: J84.9 Interstitial pulmonary disease, unspecified (principal); R05.9 Cough, unspecified; J96.91 Respiratory failure, unspecified with hypoxia; G47.33 Obstructive sleep apnea (adult) (pediatric); Z99.89 Dependence on other enabling machines and devices
CPT/HCPCS: 99213

== ENCOUNTER → 2024-06-03 09:42 | Outpatient (BNVA) | payer MEDICARE, SELFPAY | PROVIDERS: PCP Family Medicine; Visit Provider Internal Medicine | DX: J84.9 Interstitial pulmonary disease, unspecified (principal); R05.9 Cough, unspecified; J96.91 Respiratory failure, unspecified with hypoxia; G47.33 Obstructive sleep apnea (adult) (pediatric); Z99.89 Dependence on other enabling machines and devices; Z99.81 Dependence on supplemental oxygen | CPT/HCPCS: 99212 ==

== ENCOUNTER → 2024-06-15 07:54 | Outpatient (REF) | payer MEDICARE, SELFPAY ==
--- NOTE | 2024-06-15 07:57 | CA_ITS ---
Transthoracic Echocardiogram Patient (Last, First, Middle): Amaris Hook E Gender: Female Date of : 1955 Age: 69 Procedure Date: 06/15/2024 Procedure Type: Transthoracic Echocardiogram Location: OP Height: 157.48 cm Weight: 108.86 kg BSA: 2.07 m2 Heart Rate: 78 bpm BP: 130 / 70 mmHg Board Stacker: JESSICA Referring MD: Reena Keller BUTADIENE CONVERTER UTILITY OPERATOR-Joy Beam Racker: Aidan Penn MD Symptoms: I35.0 - Nonrheumatic aortic (valve) stenosis Study Quality: Fair but adequate ECG Rhythm: Sinus Conclusions: - 1. Low normal LV ejection fraction of 50-55% with grade 2 diastolic dysfunction 2. Mildly dilated left atrium 3. Mild aortic stenosis 4. Mildly dilated ascending aorta at 3.8 cm Findings Left Ventricle Normal left ventricular cavity size. There is normal left ventricular wall thickness. The left ventricular systolic function is low normal. The visually estimated ejection fraction is between 50-55%. Spectral Doppler is indicative of a pseudonormal filling pattern. E/E prime ratio is >15, consistent with elevated filling pressures. Evidence suggests grade II (moderate) diastolic dysfunction. Right Ventricle The right ventricle was not well visualized. Atria The left atrium is mildly dilated. Interatrial shunt cannot be excluded. The right atrium was not well visualized. Aortic Valve The aortic valve was not well visualized. There is mild calcification of the aortic valve. There is mild aortic valve stenosis. The peak aortic gradient is 17 mmHg.The mean gradient is 11 mmHg. The aortic valve area is 1.54 cm2. There is no aortic valve regurgitation. Mitral Valve The mitral valve was not well visualized. There is mild anterior mitral leaflet thickening. There is mild mitral annular calcification. There is no mitral valve regurgitation. There is no mitral valve stenosis. Pulmonic Valve The pulmonic valve was not well visualized. Tricuspid Valve The tricuspid valve was not well visualized. Tricuspid regurgitation envelope is inadequate for calculation of right ventricular systolic pressure. Great Vessels The aorta was not well visualized. The pulmonary artery was not well visualized. There is mild dilatation of the ascending aorta measuring 3.80 cm. Venous The inferior vena cava was not well visualized. Pericardium/Pleural The pericardium was not well visualized. Prior Study Comparison Changes noted compared to prior study dated: 07/15/2023. LV systolic function appears to be mildly reduced. Ascending aorta is at 3.8 cm. Measurements 2D Linear Measurements IVSd: 1.63 0.6-0.9/0.6-1.0 cm LVIDd: 4.65 3.9-5.3/4.2-5.9 cm LVIDd Index: 2.25 2.4-3.2/2.2-3.1 cm/m2 LVIDs: 3.20 2.0-3.6 cm LVPWd: 1.12 0.7-1.1 cm LA Diam: 4.80 2.7-3.8/3.0-4.0 cm LAIDs Index: 2.32 1.5-2.3 cm/m2 LV Mass: 316.87 67-162/88-224 g LV Mass Index: 153.08 43-95/49-115 g/m2 LVOT Diam: 2.20 3.0+(-)1.3 cm 2D Systolic Function EF 4C: 50.80 >55% EF 2C: 57.20 >55% EF BiP: 54.30 >55% Mitral Valve MV Pk E: 1.01 MV PK A: 0.93 MV Decel Time: 218.00 E/A: 1.10 E'Lateral: 5.55 E'Medial: 3.90 E/E' Med: 25.90 E/E' Lat: 18.20 PHT: 64.00 MVA PHT: 3.44 Decel [place]: 4.61 Aortic Valve AoV Pk Manny: 2.04 AoV Mn Manny: 1.54 AoV VTI: 0.45 AoV Pk Grad: 17.00 Aov Mn Grad: 11.00 MEIR Cont.VTI: 1.54 LVOT LVOT Pk Manny: 0.80 LVOT Mn Manny: 0.59 LVOT VTI: 0.18 LVOT Pk Grad: 3.00 LVOT Mn Grad: 2.00 LVOT Diam: 2.20 LVOT Area: 3.80 Diastolic Function MV Pk E: 1.01 MV Pk A: 0.93 E/A: 1.10 E'Medial: 3.90 E/E' Med: 25.90 E' Laterial: 5.55 E/E' Lat: 18.20 Right Ventricle TAPSE (mm): 16.60 TVS' Manny: 8.32 Tricuspid Valve RA Press: 3.00 Great Vessels Aorta Ao Asc: 3.80 2.1-3.4 cm Pulmonary Veins Pulm Vein S/D 1.10 Pulmonary Valve PV Pk Manny: 0.81 Peak PV Grad: 3.00 Updated in Other Vendor System with Status of Final Aidan Penn MD electronically signed on 06/15/2024 12:04:29 PM with status of Final
== END ==
LOC: HO.CARD 07:54
PROVIDERS: PCP Family Medicine; Visit Provider Nurse Practitioner Family
DX: I35.0 Nonrheumatic aortic (valve) stenosis (principal)
CPT/HCPCS: 93306

== ENCOUNTER → 2024-06-15 07:57 | Outpatient (BNV) | payer MEDICARE, SELFPAY | PROVIDERS: PCP Family Medicine; Visit Provider Internal Medicine Cardiovascular Disease | DX: I35.0 Nonrheumatic aortic (valve) stenosis (principal); I51.89 Other ill-defined heart diseases | CPT/HCPCS: 93306 ==

== ENCOUNTER 2024-06-30 15:16 | Outpatient (AMB) | payer MEDICARE, SELFPAY ==
[2024-06-30 15:30] VITALS: BP 122/78; PULSE 72; BMI 45.2
--- NOTE | 2024-06-30 15:30 | MHC.OFFVIS ---
Vital Signs 06/30/24 15:30 Height 5 ft 2 in Weight 246 lb 14.684 oz BMI 45.2 BP 122/78 Blood Pressure Location Lt brachial Position Sitting Pulse 72 Intake Visit Reasons: 1 year fu Intake Note: 1 year follow-up had ekg end march heart feeling good Flatwork Finisher Required: No Supervisor Weaving: Supervisor Weaving Present Accompanied by: Family/Other Allergies penicillin V Allergy (Severe, Verified 06/03/24 09:49) joint swelling and rash amlodipine [From [facility]] Adverse Reaction (Intermediate, Verified 06/03/24 09:49) edema Medication List - Last Reconciled 06/30/24 by Aidan Penn MD apixaban (Eliquis) 5 mg PO BID ascorbic acid (vitamin C) 500 mg PO DAILY aspirin 81 mg PO DAILY atorvastatin 80 mg PO BEDTIME 90 days carvedilol 25 mg PO BID@0900,1500 90 days cholecalciferol (vitamin D3) 1,250 mcg PO PISANO@0900 90 days ferrous sulfate 325 mg PO DAILY fexofenadine 180 mg PO DAILY FreeStyle Robert 2 [place] (flash glucose scanning reader) As directed NS FreeStyle Robert 2 Sensor (flash glucose sensor) As directed NS furosemide 40 mg PO BID hydralazine 10 mg PO BID insulin glargine (Lantus Solostar U-100 Insulin) 38 Units AM and 36 Units PM subcutaneously 2 times a day; 90 days insulin lispro See Protocol Sliding Scale: 150-200 Give 2 units 201-250 Give 4 units 251-300 Give 6 units 301-350 Give 8 units 351-400 Give 10 units 401-450 Give 12 units > 450 Give 12 units & call subcutaneously 4 times a day; lisinopril 10 mg See Protocol PO DAILY miscellaneous medical supply Oxygen?concentrator. ?Daily?As directed. 999 days multivitamin 1 tab PO DAILY pen needle, diabetic (BD Ultra-Fine Susana Pen Needle) 1 each topically 2-3 times a day sodium polystyrene sulfonate 15 grams PO 3XW venlafaxine ER 75 mg PO DAILY venlafaxine ER (Effexor XR) 37.5 mg PO ONCE HPI Comments Details: Amaris comes for follow-up for heart failure. Recent echocardiogram showed low normal LV ejection fraction with grade 2 diastolic dysfunction mild aortic stenosis. Overall she has not had any hospitalization the last year. She has done well. Currently taking on diuretic therapy. Using oxygen all the time. Also using CPAP at nighttime. Her blood pressures been well controlled. She has been reducing her salt intake. She denies any prolonged palpitation irregular heartbeat. No lightheadedness, syncope. Denies any exertional chest pain although she has minimal exercise activity. Denies any orthopnea, PND. 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 CAP (community acquired pneumonia) Morbid (severe) obesity due to excess calories Chronic renal failure Secondary aldosteronism Acute renal failure Nocturnal hypoxemia Diabetes type 2, controlled HTN (hypertension) Morbid obesity due to excess calories AMY (obstructive sleep apnea) Pneumonia Obesity Elevated creatine kinase Congestive heart failure High cholesterol Diabetes type 2, uncontrolled Surgical History History of surgery History of D&C Family History Father Stroke Mother Stroke Hypertension Diabetes Maternal Grandmother Diabetes Hypertension Stroke Sister Diabetes Breast cancer Son Bipolar 1 disorder Overweight Other Mental health problem Substance abuse Social History Household Members: Children Housing: House Do you presently have visiting nurse or other home services: No Unable to assess alcohol history related to: Unable to respond Alcohol intake: current Alcohol intake frequency: holidays/special occasions only Patient Tobacco Use Status: Former Tobacco user e-Cigarette/Vaping Use: Never Used Second Hand Smoke Exposure: No Advance Directives Date on File: 06/09/21 service: No Current occupational status: retired Cognitive needs: No Hearing needs: No Vision needs: Yes Review of Systems Const All systems reviewed & are unremarkable except as noted in HPI and below ENT Denies dizziness Card Denies chest pain, Denies chest pain at rest, Denies chest pain with activity, Denies rapid heart rate, Denies pedal edema, Denies edema, Denies leg edema, Denies lightheadedness, Denies palpitations, Denies dyspnea, Reports dyspnea on exertion and Denies orthopnea Resp Details: wearing O2 with nasal cannula Denies cough, Denies dyspnea and Reports dyspnea on exertion GI Denies hematochezia and Denies change in stool character Musc Reports abnormal gait, Reports limited range of motion, Denies muscle cramps, Denies muscle weakness, Denies numbness, Denies radiating pain into limb, Denies stiffness and Denies tingling Neuro Reports abnormal gait, Denies dizziness, Denies numbness and Denies tingling Endo Denies palpitations Physical Exam Vital Signs: Last Vital Signs Pulse 72 06/30/24 15:30 BP 122/78 06/30/24 15:30 BMI result Body Mass Index 45.2 Const General: cooperative, healthy appearing, comfortable and no acute distress Nutritional Appearance: obese morbidly obese Orientation/consciousness: patient oriented x3 Limitations: ambulation with walker Neck Neck: Yes trachea midline, Yes supple and Yes no JVD Resp Other: Lungs diminished Effort & Inspection: normal respiratory effort Auscultation: clear to auscultation bilaterally, no rhonchi, no wheezes and diminished lung sounds Cardio Jugular venous distension: no JVD Rate: regular rate Rhythm: regular rhythm Heart sounds: S1 normal heart sound present, S2 normal heart sound present, Murmur heart sound present (2/6 systolic, left sternal border) and no rubs Neuro General: patient oriented x3 Extrem General: Yes normal to inspection, No no pedal edema and No calf tenderness Psych Appearance: grossly normal Mental Status: mental status grossly normal Speech and movement: Normal speech and movement present Assessment & Plan Assessment & Plan (1) Aortic stenosis: Code(s): I35.0 - Nonrheumatic aortic (valve) stenosis Category: Medical Qualifiers: Cardiac valve disease etiology: nonrheumatic Qualified Code(s): I35.0 - Nonrheumatic aortic (valve) stenosis Plan: Aortic stenosis which is mild by echocardiogram clinically. No interventions except for medical therapy. Continue low-dose aspirin therapy. Continue aggressive vascular risk factor modification. Diabetes management aggressively being pursue through office with goal hemoglobin A1c less than 7%. Blood pressure is currently well optimized. Target goal LDL less than 70 mg/dL. (2) (HFpEF) heart failure with preserved ejection fraction: Code(s): I50.30 - Unspecified diastolic (congestive) heart failure Category: Medical Plan: Heart failure preserved ejection fraction with chronic respiratory failure. Clinically euvolemic and well compensated. Continue current diuretic dose. Management of heart failure were discussed. Daily weight monitoring avoidance of salt loading was discussed. Additional diuretics as need be. Continue aggressive blood pressure control which is currently well optimized. Encouraged to continue to use oxygen around the clock to help with reducing hypoxia related pulmonary vaso constriction. Continue CPAP therapy. Overall prognosis guarded. (3) Paroxysmal atrial flutter: Code(s): I48.92 - Unspecified atrial flutter Category: Medical Plan: Atrial flutter without any obvious clinical recurrence at this point time. Continue CPAP therapy. Continue full oral anticoagulation, currently on Eliquis therapy. There is no indication for additional aspirin therapy which will only contribute to worsening anemia. This will be discontinued. Avoidance of stimulants was discussed. Continue CPAP therapy. Will follow up in the clinic in 1 year's time, sooner p.r.n.. Thank you for allowing me to partake in his care Orders: Orders CA echo transthoracic complete 1 Year I35.0 - Nonrheumatic aortic (valve) stenosis Medications: Discontinued aspirin Discontinued Reason: Doctor's Order 81 mg PO DAILY 30 tabs 0RF Coding Level of Care Code Est Pt Level 4 (57044) Diagnoses Nonrheumatic aortic valve stenosis I35.0 Cardiac valve disease etiology: nonrheumatic (HFpEF) heart failure with preserved ejection fraction I50.30 Paroxysmal atrial flutter I48.92
== END 2024-06-30 15:59 | disposition home or self-care (01) ==
PROVIDERS: PCP Family Medicine; Visit Provider Internal Medicine Cardiovascular Disease
DX: I35.0 Nonrheumatic aortic (valve) stenosis (principal); I50.30 Unspecified diastolic (congestive) heart failure; I48.92 Unspecified atrial flutter
CPT/HCPCS: 99214

== ENCOUNTER → 2024-06-30 15:16 | Outpatient (BNVA) | payer MEDICARE, SELFPAY | PROVIDERS: PCP Family Medicine; Visit Provider Internal Medicine Cardiovascular Disease | DX: I35.0 Nonrheumatic aortic (valve) stenosis (principal); I50.30 Unspecified diastolic (congestive) heart failure; I48.92 Unspecified atrial flutter | CPT/HCPCS: 99212 ==

== ENCOUNTER 2024-07-14 15:22 | Outpatient (REF) | payer MEDICARE, SELFPAY | END 2024-07-14 15:23 | disposition home or self-care (01) | LOC: HO.LAB 15:22 | PROVIDERS: PCP Family Medicine | DX: R05.9 Cough, unspecified (principal) | CPT/HCPCS: 87880; 99212 ==

== ENCOUNTER 2024-07-14 15:22 | Outpatient (AMB) | payer MEDICARE, SELFPAY ==
--- NOTE | 2024-07-14 15:24 | MHC.OFFWIV ---
Intake Vital Signs 07/14/24 15:27 Height 5 ft 2 in BMI Reason not done Patient refused/unable BP 128/74 Blood Pressure Location Lt brachial Position Sitting Pulse 75 Pulse Source Pulse Oximeter Temp 98.5 F Temp Source Oral Pulse Oximetry (%) 94 Oxygen Delivery Method Nasal Cannula Intake Visit Reasons: EP-severe cough, green discharge, sore throat Intake Note: pt c/o severe cough w/ green phlegm, sore throat. Started last Patient Tobacco Use Status: Former Tobacco user Allergies penicillin V Allergy (Severe, Verified 07/14/24 15:58) joint swelling and rash amlodipine [From [facility]] Adverse Reaction (Intermediate, Verified 07/14/24 15:58) edema Medication List - Last Reconciled 07/14/24 by Douglas Zaman MD apixaban (Eliquis) 5 mg PO BID ascorbic acid (vitamin C) 500 mg PO DAILY atorvastatin 80 mg PO BEDTIME 90 days carvedilol 25 mg PO BID@0900,1500 90 days cholecalciferol (vitamin D3) 1,250 mcg PO PISANO@0900 90 days ferrous sulfate 325 mg PO DAILY fexofenadine 180 mg PO DAILY FreeStyle Robert 2 [place] (flash glucose scanning reader) As directed NS FreeStyle Robert 2 Sensor (flash glucose sensor) As directed NS furosemide 40 mg PO BID hydralazine 10 mg PO BID insulin glargine (Lantus Solostar U-100 Insulin) 38 Units AM and 36 Units PM subcutaneously 2 times a day; 90 days insulin lispro See Protocol Sliding Scale: 150-200 Give 2 units 201-250 Give 4 units 251-300 Give 6 units 301-350 Give 8 units 351-400 Give 10 units 401-450 Give 12 units > 450 Give 12 units & call subcutaneously 4 times a day; lisinopril 10 mg See Protocol PO DAILY miscellaneous medical supply Oxygen?concentrator. ?Daily?As directed. 999 days multivitamin 1 tab PO DAILY pen needle, diabetic (BD Ultra-Fine Susana Pen Needle) 1 each topically 2-3 times a day sodium polystyrene sulfonate 15 grams PO 3XW venlafaxine ER 75 mg PO DAILY venlafaxine ER (Effexor XR) 37.5 mg PO ONCE Do you need a note to return to daycare/school/sports/work: No HPI EP-severe cough, green discharge, sore throat HPI Details 69-year-old female presents to the office for a sick visit. Patient is experiencing symptoms of wheezing and shortness of breath. Nonproductive cough. She has been diagnosed with pulmonary fibrosis in the past. No fevers or chills. 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 CAP (community acquired pneumonia) Morbid (severe) obesity due to excess calories Chronic renal failure Secondary aldosteronism Acute renal failure Nocturnal hypoxemia Diabetes type 2, controlled HTN (hypertension) Morbid obesity due to excess calories AMY (obstructive sleep apnea) Pneumonia Obesity Elevated creatine kinase Congestive heart failure High cholesterol Diabetes type 2, uncontrolled Surgical History History of surgery History of D&C Family History Father Stroke Mother Stroke Hypertension Diabetes Maternal Grandmother Diabetes Hypertension Stroke Sister Diabetes Breast cancer Son Bipolar 1 disorder Overweight Other Mental health problem Substance abuse Social History Household Members: Children Housing: House Do you presently have visiting nurse or other home services: No Unable to assess alcohol history related to: Unable to respond Alcohol intake: current Alcohol intake frequency: holidays/special occasions only Patient Tobacco Use Status: Former Tobacco user e-Cigarette/Vaping Use: Never Used Second Hand Smoke Exposure: No Advance Directives Date on File: 06/09/21 service: No Current occupational status: retired Cognitive needs: No Hearing needs: No Vision needs: Yes Physical Exam Vital Signs: Last Vital Signs Temp 98.5 F 07/14/24 15:27 Pulse 75 07/14/24 15:27 BP 128/74 07/14/24 15:27 Pulse Ox 94 07/14/24 15:27 Oxygen Delivery Method Nasal Cannula 07/14/24 15:27 Const Other: Heavyset female in a wheelchair General: cooperative and healthy appearing Nutritional Appearance: well nourished Orientation/consciousness: patient oriented x3 Limitations: no limitations HEENT Head: Yes normal to inspection Eyes General: appearance normal, both eyes and all related structures Neck Neck: Yes normal visual inspection Chest Chest palpation & inspection: normal palpation of entire chest wall Resp Effort & Inspection: normal respiratory effort Neuro General: patient oriented x3 Results AMB Rapid Strep AMB Rapid Strep Negative Last Edit by Mitchell Schultz CMA on 07/14/24 15:44 Results Reviewed Results Reviewed: Laboratory Last Values Strep Scn [facility] Negative 07/14/24 15:26 Assessment & Plan Assessment & Plan (1) Cough: Code(s): R05.9 - Cough, unspecified Plan: Chest x-ray images were personally reviewed by me. No infiltrate seen. Azithromycin and albuterol called in. Will call with the results of the flu test. If symptoms do not improve to follow-up here. Orders: Orders SARS-CoV2/FLU/RSV Today J06.9 - Acute upper respiratory infection, unspecified AMB Rapid Strep Screen Today Z13.9 - Encounter for screening, unspecified XR chest 2V Today R05.9 - Cough, unspecified Coding Level of Care Code Est Pt Level 4 (82426) Diagnoses Cough R05.9
[2024-07-14 15:27] VITALS: BP 128/74; PULSE 75; TEMP 36.9; O2SAT 94
== END 2024-07-14 16:57 | disposition home or self-care (01) ==
PROVIDERS: PCP Family Medicine; Visit Provider Internal Medicine
DX: Z13.9 Encounter for screening, unspecified (principal); R05.9 Cough, unspecified

== ENCOUNTER 2024-07-14 15:59 | Outpatient (REF) | payer MEDICARE, SELFPAY ==
--- NOTE | ~2024-07-14 | XR_ITS ---
EXAMINATION: XR CHEST CLINICAL INFORMATION: R05.9 - Cough, unspecified COMPARISON: X-ray dated March 09, 2024 TECHNIQUE: 2 views of the chest were obtained. FINDINGS: Submitted for interpretation on September 21, 2024. Pulmonary reticular pattern. Improved aeration both lungs. No gross consolidation pleural effusion or pneumothorax. Cardiomediastinal silhouette is prominent, unchanged. Multilevel thoracic spondylosis. S-shaped curvature of the thoracolumbar spine. XR/XR chest 2V IMPRESSION: Improved aeration/resolving airspace disease since prior exam. Probable scoliosis. Electronically signed by: Dakotah Flanagan MD 09/21/2024 10:46 AM EST
[2024-07-15 11:42] LABS: Influenza A PCR NEGATIVE (Negative); Influenza B PCR NEGATIVE (Negative); Resp Syncy Virus RNA Qual PCR NEGATIVE (Negative); SARS COV2 PCR INHOUSE NEGATIVE (Negative)
== END 2024-07-14 16:00 | disposition home or self-care (01) ==
LOC: HO.HMGCX 15:59
PROVIDERS: PCP Family Medicine; Visit Provider Internal Medicine
DX: R05.9 Cough, unspecified (principal)
CPT/HCPCS: 0241U; 71046

== ENCOUNTER → 2024-07-14 16:02 | Outpatient (BNV) | payer MEDICARE, SELFPAY | PROVIDERS: PCP Family Medicine; Visit Provider Radiology Diagnostic Radiology | DX: R05.9 Cough, unspecified (principal) | CPT/HCPCS: 71046 ==

== ENCOUNTER → 2024-08-17 07:26 | Outpatient (AMB) | payer MEDICARE, SELFPAY ==
--- NOTE | 2024-08-17 07:36 | A.OFFVIS_ITS ---
Vital Signs 08/17/24 07:39 Height 5 ft 2 in Weight 242 lb BMI 44.3 BP 117/56 L Blood Pressure Location Lt brachial Position Sitting Pulse 67 Intake Visit Reasons: Anemia/pre colonoscopy Intake Note: Patient follow up for Anemia and pre Colonoscopy screening consult. Patient denies any GI issues. Chicken Handler Required: No Accompanied by: Family/Other Allergies penicillin V Allergy (Severe, Verified 11/26/24 15:37) joint swelling and rash amlodipine [From [facility]] Adverse Reaction (Intermediate, Verified 11/26/24 15:37) edema Medication List - Last Reconciled 08/17/24 by José Miguel Vale MD albuterol sulfate 90 mcg/actuation 1 inh inhalation QID PRN apixaban (Eliquis) 5 mg PO BID ascorbic acid (vitamin C) 500 mg PO DAILY atorvastatin 80 mg PO BEDTIME 90 days carvedilol 25 mg PO BID@0900,1500 90 days cholecalciferol (vitamin D3) 1,250 mcg PO PISANO@0900 90 days epoetin waqar (Procrit) 3,000 units subcut 2XW fexofenadine 180 mg PO DAILY FreeStyle Robert 2 [place] (flash glucose scanning reader) As directed NS FreeStyle Robert 2 Sensor (flash glucose sensor) As directed NS furosemide 40 mg PO BID hydralazine 10 mg PO BID insulin glargine (Lantus Solostar U-100 Insulin) 38 Units AM and 36 Units PM subcutaneously 2 times a day; 90 days insulin lispro See Protocol Sliding Scale: 150-200 Give 2 units 201-250 Give 4 units 251-300 Give 6 units 301-350 Give 8 units 351-400 Give 10 units 401-450 Give 12 units > 450 Give 12 units & call subcutaneously 4 times a day; miscellaneous medical supply Oxygen?concentrator. ?Daily?As directed. 999 days multivitamin 1 tab PO DAILY pen needle, diabetic (BD Ultra-Fine Susana Pen Needle) 1 each topically 2-3 times a day sodium polystyrene sulfonate 15 grams PO 3XW venlafaxine ER 75 mg PO DAILY venlafaxine ER (Effexor XR) 37.5 mg PO ONCE HPI HPI Anemia/pre colonoscopy: Details: GI clinic visit for this 69 YF with HFpEF, CKD 3, insulin-dependent diabetes type 2, HLD, HTN, AMY on CPAP at bedtime, and chronically on 2L O2 at home for FU of anemia and a hx of multiple colon polyps to schedule a FU colonoscopy TODAY'S VISIT: Patient follow up for Anemia and pre Colonoscopy screening consult. Patient denies symptoms of heartburn, dysphagia, vomiting, change in appetite or weight. Notes nausea when her stomach is empty and occasional heartburn Denies recent change in bowel habits, constipation, diarrhea, black stools or rectal bleeding. Getting procrit for anemia Pt has and a borderline low EF Patient has obstructive sleep apnea Denies problems with anesthesia in the past. Denies being on chronic anticoagulation. Pt reports she has chronic anemia for the past several years and has been taking oral iron supplements for greater than 6 yrs Pt admits to grazing during the day resulting in weight gain. She reports decreased p.o. intake since she has not been feeling well. Pt recalls she had a colonoscopy ? at age 53 (at [facility] or [facility]) which was negative. She is unsure if she had an EGD in the past. Pt smoked in the remote past and takes ETOH occasionally She has been on Home 02 since May, 2021. Patient has severe sleep apnea and uses a CPAP machine at home. She takes a baby aspirin daily. 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 Patient lives with her son and [id number]. Patient denies known family history of colon polyps, colon cancer or other GI malignancies. LABS IN [employer] : Reviewed IMAGING STUDIES: Reviewed ENDOSCOPIC STUDIES: 08/06/23 EGD AND COLON SHOWED: Endoscopy Findings: ESOPHAGUS: Small hiatal hernia STOMACH: Prominent and nodular appearing gastric folds - biopsied. Mild gastric antral erythema. Biopsies were obtained to check for H pylori. DUODENUM: Normal - biopsied to check for celiac sprue Colonoscopy Findings: Three medium to large sized and two small polyps removed Moderate diverticulosis seen in the left colon Prep was good to fair despite copious irrigation. There was undigested vegetable matter in the cecum, proximal AC, hepatic and splenic flexures which could not be suctioned Plan: I will contact the patient with pathology results Ok to initiate anticoagulation on 08/11/23 (pt can be started on enoxaparin in the am if she needs to be started on anticoagulation prior to 08/11/23) Repeat Colonoscopy interval based on path results - in 6-12 months if polyps are adenomatous (to check polypectomy sites in the rectum) and due to fair prep. Above findings were reviewed with the patient and colon polyps and diverticulosis handouts were given in the discharge area BIOPSIES SHOWED: A. Small bowel, biopsy: -Small-bowel/duodenal mucosa with preserved villi and no specific change; no evidence of celiac disease. B. Gastric antrum, biopsy: -Gastric antral mucosa with reactive/regenerative changes, dilated lamina propria capillaries, and minimal chronic inactive gastritis; negative for intestinal metaplasia and dysplasia (see comment). C. Gastric fold, biopsy: -Gastric body mucosa with reactive changes and minimal chronic inactive gastritis; negative for intestinal metaplasia and dysplasia (see comment). D. Colon, ascending, polyp: -Tubular adenoma; negative for high-grade dysplasia and carcinoma. E. Colon, transverse, polyp: -Tubular adenoma; negative for high-grade dysplasia and carcinoma. F. Colon, rectal polyps: -Tubulovillous adenoma with foci suspicious for high- grade dysplasia, appears completely excised; negative for carcinoma (see comment). -Tubulovillous adenoma (cannot evaluate margin); negative for high-grade dysplasia and carcinoma. Comment: (F): There is no submucosal invasion and this lesion lacks metastatic potential. Although the adenoma appears excised endoscopic follow-up is warranted to ensure there is no residual lesion PAST GI HISTORY BY REVIEW OF MEDICAL RECORDS: Pt was seen in consultation on 08/04/23 during hospitalization at [facility] 68 YF with HFpEF, CKD 3, insulin-dependent diabetes type 2, HLD, HTN, AMY on CPAP at bedtime, and chronically on 2L O2 at home admitted to [facility] on 08/01/23 with septis from multifocal pneumonia, CHF exacerbation + new-onset atrial flutter/RVR. GI consulted for evaluation of acute on chronic anemia with heme- positive stools. Pt reports she has chronic anemia for the past several years and has been taking oral iron supplements for greater than 5 yrs Pt recalls she had a colonoscopy ? at age 53 (at [facility] or [facility]) which was negative. She is unsure if she had an EGD in the past. Pt was seen in the GI clinic in 02/2023 and advised a Cologuard test which she has not done yet In the ED labs were significant for H&H of 7.9/25.1, 08/03/23 H & H was 7.7 & 25.2 and improved to 8.3 & 27.2 today after she was transfused 1 U PRBC. Iron studies are suggestive of anemia of chronic disease with ferritin of 4, 244 Normal Vitamin B12 and folate Anemia is likely multifactorial - a combination of anemia of chronic disease with superimposed ANDRY due to Upper or lower GI source Plan is to start anticoagulation after endoscopic workup is completed Elevated LFTs likely due to ACOSTA RECOMMENDATIONS 1. Agree with Iv antiemetics and PPI 2. Pt needs further evaluation with EGD and colonoscopy once her cardiac and pulmonary status is optimized. She will need cardiac and pulmonary clearance for anesthesia. 3. Hepatitis serologies, celiac serologies, AMA added to am lab [facility] Medical History Heartburn On anticoagulant therapy Interstitial lung disease Respiratory failure with hypoxia Cough Exercise hypoxemia MRSA carrier CAP (community acquired pneumonia) Morbid (severe) obesity due to excess calories Heme positive stool Atrial flutter Elevated serum creatinine AMY on CPAP Chronic renal failure Secondary aldosteronism Acute renal failure Nocturnal hypoxemia Morbid obesity Diabetes type 2, controlled Oxygen dependent HTN (hypertension) Morbid obesity due to excess calories AMY (obstructive sleep apnea) Pneumonia Obesity Elevated creatine kinase Anemia Congestive heart failure High cholesterol Diabetes type 2, uncontrolled Hypertension, essential Surgical History H/O colonoscopy History of surgery History of D&C Family History Father Stroke Mother Stroke Hypertension Diabetes Maternal Grandmother Diabetes Hypertension Stroke Sister Diabetes Breast cancer Son Bipolar 1 disorder Overweight Other Mental health problem Substance abuse Social History Household Members: Unknown / Unable to assess Housing: Unknown / Unable to assess Are you a primary emergency care tech to a significant other at home: No Do you presently have visiting nurse or other home services: No Unable to assess alcohol history related to: Unable to respond Alcohol intake: current Alcohol intake frequency: does not drink Comment: pt was medicated Patient Tobacco Use Status: Former Tobacco user e-Cigarette/Vaping Use: Never Used Second Hand Smoke Exposure: No Advance Directives Date on File: 06/09/21 service: No Current occupational status: retired Cognitive needs: No Hearing needs: No Vision needs: Yes Review of Systems Const All systems reviewed & are unremarkable except as noted in HPI and below Physical Exam Vital Signs: Last Vital Signs Pulse 67 08/17/24 07:39 BP 117/56 L 08/17/24 07:39 BMI result Body Mass Index 44.3 Const Other: Const General: well developed; No acute distress Nutritional Appearance: obese morbidly obese Orientation/consciousness: patient oriented x3 HENMT Head: Yes normocephalic and Yes atraumatic Eyes General: appearance normal, both eyes and all related structures Pupils: Equal, round and reactive pupils present EOM: EOMs intact bilaterally Resp Effort & Inspection: normal respiratory effort Auscultation: clear to auscultation bilaterally Cardio Rate: regular rate Rhythm: regular rhythm Heart sounds: S1 normal heart sound present, S2 normal heart sound present, no gallops, no murmurs and no rubs Neuro General: patient oriented x3 and gait normal Cranial nerves: Yes Equal, round and reactive pupils present Psych Affect: normal affect Assessment & Plan Assessment & Plan (1) Chronic anemia: Code(s): D64.9 - Anemia, unspecified Category: Medical Plan 69 YF with HFpEF, CKD 3, insulin-dependent diabetes type 2, HLD, HTN, AMY on CPAP at bedtime, and chronically on 2L O2 at home hospitalized at [facility] in 08/01/23 with septis from multifocal pneumonia, CHF exacerbation + new-onset atrial flutter/RVR. Pt was seen for evaluation of acute on chronic anemia with heme-positive stools. Pt reports she has chronic anemia for the past several years and has been taking oral iron supplements for greater than 5 yrs Patient denies symptoms of heartburn, dysphagia, vomiting, change in appetite or weight. Notes nausea when her stomach is empty and occasional heartburn Denies recent change in bowel habits, constipation, diarrhea, black stools or rectal bleeding. Getting procrit for anemia Iron studies are suggestive of anemia of chronic disease with ferritin of 4, 244 Normal Vitamin B12 and folate Elevated LFTs likely due to ACOSTA She has been on Home 02 since May, 2021. Patient has severe sleep apnea and uses a CPAP machine at home. 07/2023 three medium to large sized and two small polyps were removed during colonoscopy Pt was advised to schedule a FU colonoscopy to check polypectomy sites in the rectum and due to fair prep. FU in 6 months Coding Level of Care Code Est Pt Level 4 (71391) Diagnoses Chronic anemia D64.9 Time Spent (min) 23
[2024-08-17 07:39] VITALS: BP 117/56; PULSE 67; BMI 44.3
== END ==
PROVIDERS: PCP Family Medicine; Visit Provider Internal Medicine Gastroenterology
DX: D64.9 Anemia, unspecified (principal)
CPT/HCPCS: 99214

== ENCOUNTER → 2024-08-17 07:26 | Outpatient (BNVA) | payer MEDICARE, SELFPAY | PROVIDERS: PCP Family Medicine; Visit Provider Internal Medicine Gastroenterology ==

== ENCOUNTER 2024-09-08 14:38 | Outpatient (AMB) | payer MEDICARE, SELFPAY ==
--- NOTE | 2024-09-08 14:50 | MHC.OFFVIS ---
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 Dr Leblanc wanted patient to have consult now as she will be starting dialysis in the near future. Allergies penicillin V Allergy (Severe, Verified 09/08/24 14:52) joint swelling and rash amlodipine [From [facility]] Adverse Reaction (Intermediate, Verified 09/08/24 14:52) edema HPI HPI MEDICATION CARE MANAGER AV Fistula: Details: Very pleasant 69-year-old female Year old patient presents for chronic renal insufficiency and potential dialysis access. Reason for dialysis access includes CKD 4 Current GFR 21 Patient reports prior right IJ central lines x2 for septic pneumonia in the hospital Patient denies any previous fistular graft placement Expected time to dialysis is less than 6 months Hand dominance right Patient now presents for evaluation of permanent dialysis access [facility] Medical History Interstitial lung disease Respiratory failure with hypoxia Cough Anemia Hypertension, essential Exercise hypoxemia AMY on CPAP Morbid obesity Heme positive stool Atrial flutter Elevated serum creatinine 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 CAP (community acquired pneumonia) Morbid (severe) obesity due to excess calories Chronic renal failure Secondary aldosteronism Acute renal failure Nocturnal hypoxemia Diabetes type 2, controlled HTN (hypertension) Morbid obesity due to excess calories AMY (obstructive sleep apnea) Pneumonia Obesity Elevated creatine kinase Congestive heart failure High cholesterol Diabetes type 2, uncontrolled Surgical History History of surgery History of D&C Family History Father Stroke Mother Stroke Hypertension Diabetes Maternal Grandmother Diabetes Hypertension Stroke Sister Diabetes Breast cancer Son Bipolar 1 disorder Overweight Other Mental health problem Substance abuse Social History Household Members: Children Housing: House Do you presently have visiting nurse or other home services: No Unable to assess alcohol history related to: Unable to respond Alcohol intake: current Alcohol intake frequency: holidays/special occasions only Patient Tobacco Use Status: Former Tobacco user e-Cigarette/Vaping Use: Never Used Second Hand Smoke Exposure: No Advance Directives Date on File: 06/09/21 service: No Current occupational status: retired Cognitive needs: No Hearing needs: No Vision needs: Yes Review of Systems Const All systems reviewed & are unremarkable except as noted in HPI and below Reports no additional complaints ENT Reports Normal hearing present Card Denies chest pain, Denies chest pain at rest, Denies chest pain with activity and Denies pedal edema Resp Denies cough GI Denies abdominal pain Musc Denies abnormal gait, Denies muscle cramps and Denies radiating pain into limb Skin/Breast Denies skin ulcer and Denies wounds Neuro Reports Normal hearing present and Denies abnormal gait Psych Reports no additional complaints Physical Exam Const General: cooperative, healthy appearing and comfortable Orientation/consciousness: oriented to person, oriented to place and oriented to time HEENT Head: Yes normal to inspection Neck Neck: Yes normal visual inspection Carotids: no bruits Chest Chest palpation & inspection: normal inspection of the chest Resp Effort & Inspection: normal respiratory effort and able to speak in complete sentences Auscultation: clear to auscultation bilaterally, no crackles, no rales, no rhonchi and no wheezes Cardio Rate: regular rate Rhythm: regular rhythm Heart sounds: S1 normal heart sound present and S2 normal heart sound present Bruits: no carotid bruits Peripheral pulses: Peripheral pulses 2+ throughout GI Inspection: Yes normal to inspection Skin Wounds: no wounds Hair: normal Neuro General: oriented to person, oriented to place and oriented to time Cranial nerves: Yes CN's II-XII intact bilaterally and Yes Normal hearing present Cognition (Neuro): normal cognition Motor exam (neuro): 5/5 motor strength present throughout Extrem Other: venous exam: No significant superficial varicosities or spider telangiectasias, minimal edema General: No clubbing, No cyanosis and No edema Psych Appearance: grossly normal Mental Status: mental status grossly normal Speech and movement: Normal speech and movement present Assessment & Plan Assessment & Plan (1) CKD (chronic kidney disease) stage 4, GFR 15-29 ml/min: Code(s): N18.4 - Chronic kidney disease, stage 4 (severe) Category: Medical Plan: In short patient is need of permanent dialysis access. The patient will require left upper extremity AV fistula creation. Risks benefits complications including but not limited to bleeding infection steal tissue loss and limb loss were discussed in detail with the patient she understood and consented. We will try to move forward as soon as possible. Thank you for allowing us to assist in her care Coding Level of Care Code New Pt Level 4 (88881) Diagnoses CKD (chronic kidney disease) stage 4, GFR 15-29 ml/min N18.4
== END 2024-09-08 15:40 | disposition home or self-care (01) ==
PROVIDERS: PCP Family Medicine; Visit Provider Surgery Vascular Surgery
DX: N18.4 Chronic kidney disease, stage 4 (severe) (principal)
CPT/HCPCS: 99204

== ENCOUNTER → 2024-09-08 14:38 | Outpatient (BNVA) | payer MEDICARE, SELFPAY | PROVIDERS: PCP Family Medicine; Visit Provider Surgery Vascular Surgery | DX: N18.4 Chronic kidney disease, stage 4 (severe) (principal) | CPT/HCPCS: 99202 ==

== ENCOUNTER 2024-09-09 13:48 | Outpatient (REF) | payer MEDICARE, SELFPAY ==
--- NOTE | ~2024-09-09 | US_ITS ---
EXAMINATION: US TRIPLEX UPPER EXTREMITY, LEFT CLINICAL INFORMATION: Right kidney disease, stage IV. Left upper extremity vein mapping for fistula placement. COMPARISON: None available. TECHNIQUE: Color-flow triplex imaging with spectral analysis and compression Doppler was performed on the left upper extremity. FINDINGS: The left internal jugular, subclavian, and axillary veins are patent and free of thrombus. The imaged segment of the left brachiocephalic vein is patent. Spectral doppler waveforms are normal. The brachial, basilic, cephalic, radial, and ulnar veins are patent and compressible. Venous mapping: Basilic vein: Normal patency. Proximal upper arm: 0.4 cm and 2.2 cm in depth. Mid upper arm: 0.3 cm and 1.9 cm intact. Distal upper arm: 0.2 cm and 1.6 cm in depth. Cephalic vein: Normal patency. At shoulder: 0.4 cm and 2.1 cm in depth. Proximal upper arm: 0.5 cm and 1.3 cm in depth. Mid upper arm: 0.4 cm and 1.4 cm in depth. Distal upper arm: 0.4 cm and 1.2 cm in depth. Antecubital fossa: 0.7 cm and 0.6 cm in depth. Proximal forearm: 0.3 cm and 1.4 cm in depth. Mid forearm: 0.3 cm and 1.3 cm in depth. At wrist: 0.3 cm and 0.7 cm in depth. Brachial artery: Normal patency and waveforms. Peak systolic velocity 86 centimeters per second. Proximal upper arm: 0.5 cm and 2.1 cm in depth. Mid upper arm: 0.4 cm and 2.2 cm in depth. Distal upper arm: 0.4 cm and 2.0 cm in depth. Radial artery: Normal patency Abnormal. Peak systolic velocity: 56 cm/s. The spectral waveforms are not detected on the ultrasound. Proximal forearm: 0.3 cm and 2.0 cm in depth. Mid forearm: 0.3 cm and 1.9 cm in depth.. At wrist: 0.2 cm and 0.8 cm in depth. US/US venous duplex UE LT IMPRESSION: No acute deep venous thrombosis in the interrogated veins. Venous mapping provided on the chart. Radial artery patent with abnormal appearance although spectral waveforms are not depicted. Electronically signed by: Dakotah Flanagan MD 11/17/2024 10:59 AM EST RP
== END 2024-09-09 13:49 | disposition home or self-care (01) ==
LOC: HO.US 13:48
PROVIDERS: PCP Family Medicine; Visit Provider Surgery Vascular Surgery
DX: N18.4 Chronic kidney disease, stage 4 (severe) (principal)
CPT/HCPCS: 93971

== ENCOUNTER → 2024-09-09 13:59 | Outpatient (BNV) | payer MEDICARE, SELFPAY | PROVIDERS: PCP Family Medicine; Visit Provider Radiology Diagnostic Radiology | DX: N18.4 Chronic kidney disease, stage 4 (severe) (principal) | CPT/HCPCS: 93971 ==

== ENCOUNTER 2024-09-10 15:55 | Outpatient (REF) | payer MEDICARE, SELFPAY ==
[2024-09-10 16:21] LABS: MANUAL DIFF FLAG NO
[2024-09-10 16:44] LABS: Basophils Absolute Auto 0.1 X10*3/uL (0.0-0.2); Basophils Percent Auto 0.8 % (0-2); Eosinophils Absolute Auto 0.4 X10*3/uL (0.0-0.4); Eosinophils Percent Auto 3.1 % (0-4); Hematocrit 34.3 % (37.0-47.0); Hemoglobin 10.5 g/dl (12.0-16.0); Imm Gran Abs Auto 0.08 X10*3/uL (0.00-0.03); Imm Gran Pct Auto 0.7 % (0.0-0.4); Lymphocytes Absolute Auto 1.3 X10*3/uL (1.2-4.9); Lymphocytes Percent Auto 11.1 % (20-40); Mean Corpuscular HGB Conc 30.6 g/dl (31.0-35.0); Mean Corpuscular Hemoglobin 29.3 pg (27.0-33.0); Mean Corpuscular Volume 95.8 fL (80.0-98.0); Mean Platelet Volume 10.1 fL (9.4-12.3); Monocytes Absolute Auto 0.8 X10*3/uL (0.1-1.2); Monocytes Percent Auto 6.8 % (2-11); NRBC Pct Auto 0.2 /100WBC (0.0-0.2); Neutrophils Absolute Auto 8.8 x10*3/uL (2.0-8.3); Neutrophils Percent Auto 77.5 % (45-73); Platelet Count 374 X10*3/uL (160-400); Red Blood Count 3.58 X10*6/uL (4.20-5.50); Red Cell Distribution Width 16.9 % (11.0-16.0); White Blood Count 11.3 X10*3/uL (4.8-10.8)
[2024-09-10 17:28] LABS: Anion Gap 17 (12-20); Blood Urea Nitrogen 66 mg/dL (9-16); Calcium 8.3 mg/dL (8.4-10.2); Carbon Dioxide 21 mmol/L (22-29); Chloride 110 mmol/L (96-108); Glucose Random 92 mg/dL (60-115); Potassium 4.6 mmol/L (3.3-5.1); Sodium 143 mmol/L (135-145)
[2024-09-10 18:00] LABS: Estimated Glomerular Filt Rate 10
== END 2024-09-10 15:56 | disposition home or self-care (01) ==
LOC: HO.LAB 15:55
PROVIDERS: PCP Family Medicine; Visit Provider Family Medicine
DX: Z00.00 Encounter for general adult medical examination without abnormal findings (principal); D64.9 Anemia, unspecified
CPT/HCPCS: 36415; 80048; 85025

== ENCOUNTER 2024-09-14 15:22 | Outpatient (AMB) | payer MEDICARE, SELFPAY ==
--- NOTE | 2024-09-14 15:50 | MHC.PC.OV ---
Vital Signs 09/14/24 15:55 Height 5 ft 2 in Weight 252 lb 8 oz BMI 46.2 BP 140/70 H Blood Pressure Location Rt brachial Position Sitting Respiration 16 Pulse 77 Pulse Source Pulse Oximeter Temp 97.4 F Temp Source Oral Pulse Oximetry (%) 98 Oxygen Delivery Method Room Air Intake Visit Reasons: f/u chronic conditions Intake Note: f/u chronic conditions Allergies penicillin V Allergy (Severe, Verified 09/14/24 15:59) joint swelling and rash amlodipine [From [facility]] Adverse Reaction (Intermediate, Verified 09/14/24 15:59) edema Medication List - Last Reconciled 09/14/24 by Sadi Harden MD albuterol sulfate 90 mcg/actuation 1 inh inhalation QID PRN apixaban (Eliquis) 5 mg PO BID ascorbic acid (vitamin C) 500 mg PO DAILY atorvastatin 80 mg PO BEDTIME 90 days carvedilol 25 mg PO BID@0900,1500 90 days cholecalciferol (vitamin D3) 1,250 mcg PO PISANO@0900 90 days epoetin waqar (Procrit) 3,000 units subcut 2XW fexofenadine 180 mg PO DAILY FreeStyle Robert 2 Thornton (flash glucose scanning reader) As directed NS FreeStyle Robert 2 Sensor (flash glucose sensor) As directed NS furosemide 40 mg PO BID hydralazine 10 mg PO BID insulin glargine (Lantus Solostar U-100 Insulin) 38 Units AM and 36 Units PM subcutaneously 2 times a day; 90 days insulin lispro Sliding Scale: 150-200 Give 2 units 201-250 Give 4 units 251-300 Give 6 units 301-350 Give 8 units 351-400 Give 10 units 401-450 Give 12 units > 450 Give 12 units & call subcutaneously 4 times a day; 30 days miscellaneous medical supply Oxygen?concentrator. ?Daily?As directed. 999 days multivitamin 1 tab PO DAILY pen needle, diabetic (BD Ultra-Fine Susana Pen Needle) 1 each topically 2-3 times a day sodium polystyrene sulfonate 15 grams PO 3XW venlafaxine ER 75 mg PO DAILY venlafaxine ER (Effexor XR) 37.5 mg PO ONCE Tobacco use date assessed: 04/17/24 Dental Screening Dental Screen Date: 02/03/24 HPI f/u chronic conditions HPI Details 69 y/o female presents to f/u chronic conditions such as diabetes, CRF, chronic respiratory failure and anemia of chronic disease. Had seen vascular Dr. Julien. They had noted pt in need of permanent dialysis access. Pt also require L upper extremity AV fistula creation. Notes breathing has been improving. Chest x-ray has not been read yet. Prior A1c 7.1%. A1c today 7.2%. Notes blood sugar at home have been averaging 197s. 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 CAP (community acquired pneumonia) Morbid (severe) obesity due to excess calories Chronic renal failure Secondary aldosteronism Acute renal failure Nocturnal hypoxemia Diabetes type 2, controlled HTN (hypertension) Morbid obesity due to excess calories AMY (obstructive sleep apnea) Pneumonia Obesity Elevated creatine kinase Congestive heart failure High cholesterol Diabetes type 2, uncontrolled Surgical History History of surgery History of D&C Family History Father Stroke Mother Stroke Hypertension Diabetes Maternal Grandmother Diabetes Hypertension Stroke Sister Diabetes Breast cancer Son Bipolar 1 disorder Overweight Other Mental health problem Substance abuse Social History Household Members: Children Housing: House Do you presently have visiting nurse or other home services: No Unable to assess alcohol history related to: Unable to respond Alcohol intake: current Alcohol intake frequency: holidays/special occasions only Patient Tobacco Use Status: Former Tobacco user e-Cigarette/Vaping Use: Never Used Second Hand Smoke Exposure: No Advance Directives Date on File: 06/09/21 service: No Current occupational status: retired Cognitive needs: No Hearing needs: No Vision needs: Yes Questionnaire PHQ-9 Over the last 2 weeks, how often have you been bothered by any of the following problems? 1. Little interest or pleasure in doing things: not at all 2. Feeling down, depressed, or hopeless: not at all 3. Trouble falling or staying asleep, or sleeping too much: not at all 4. Feeling tired or having little energy: not at all 5. Poor appetite or overeating: not at all 6. Feeling bad about yourself - or that you are a failure or have let yourself or your family down: not at all 7. Trouble concentrating on things, such as reading the newspaper or watching television: not at all 8. Moving or speaking so slowly that other people could have noticed. Or the opposite - being so fidgety or restless that you have been moving around a lot more than usual: not at all 9. Thoughts that you would be better off or of hurting yourself in some way: not at all Total score: 0 Source: Developed by Drs. Ministerio Chirinos, Clementina Mike, Tru Calderon and colleagues, with an educational bryce from [employer]. Thrive Questionnaire Date Thrive assessed: 08/03/23 I am a: Patient What is your living situation today?: I have a steady place to live Within the past 12 months, did the food you bought not last and you didn't have the money to get more?: I choose not to answer this question Within the past 12 months, did you worry whether your food would run out before you got money to buy more?: Never true Do you have trouble paying for medicines?: No Do you have trouble getting transportation to medical appointments?: No Do you have trouble paying your heating and electricity bill?: No Do you have trouble taking care of your child, family member or friend?: No Do you have trouble with day-to-day activities such as bathing, preparing meals, shopping, managing finances, etc.?: No Are you currently unemployed and looking for a job?: No Are you interested in more education?: No Please select the resources that you would like help with: None Currently or been in a relationship where the following occur: No concerns reported THRIVE Score: 0 AUDIT C Alcohol Use Questionnaire (AUDIT-C) 1. How often do you have a drink containing alcohol?: Never Total Score: 0 MARE-7 AMB Questionnaire MARE-7 Date MARE - 7 assessed: 02/03/24 Feeling nervous, anxious, or on edge: 0 = Not at all Not being able to stop or control worryin = Not at all Worrying too much about different things: 0 = Not at all Trouble relaxin = Not at all Being so restless that it is hard to sit still: 0 = Not at all Becoming easily annoyed or irritable: 0 = Not at all Feeling afraid as if something awful might happen: 0 = Not at all Total MARE-7 score (0-4 normal; 5-9 mild; 10-14 moderate; 15-21 severe): 0 Source: Developed by Drs. Ministerio Chirinos, Clementina Mike, Tru Calderon and colleagues, with an educational bryce from [employer]. Review of Systems Const Denies chills, Denies fatigue, Denies fever(s), Denies headache(s) and Denies weakness ENT Denies dizziness and Denies headache(s) Card Denies dyspnea Resp Denies cough, Denies dyspnea, Denies wheezing and Denies other (shortness of breath) Musc Denies numbness and Denies tingling Neuro Denies dizziness, Denies headache(s), Denies numbness, Denies tingling and Denies weakness Psych Reports depression Endo Denies fatigue Aller/Immun Denies wheezing Physical exam (Primary Care) Vital Signs: Last Vital Signs Temp 97.4 F 09/14/24 15:55 Pulse 77 09/14/24 15:55 Resp 16 09/14/24 15:55 BP 140/70 H 09/14/24 15:55 Pulse Ox 98 09/14/24 15:55 Oxygen Delivery Method Room Air 09/14/24 15:55 BMI result Body Mass Index 46.2 Tobacco/Smoking Status: Tobacco use Status Tobacco use date assessed 04/17/24 09/14/24 15:51 Patient Tobacco Use Status Former Tobacco user 09/14/24 15:51 e-Cigarette/Vaping Use Never Used 09/14/24 15:51 PHQ-9: PHQ-9 Score PHQ-9: Total score 0 09/14/24 15:52 Thrive Assessment: Date of Thrive Assessment Date Thrive assessed 08/03/23 09/14/24 15:51 Currently or been in a relationship where the following occur: No concerns reported Const General: well developed; No acute distress Nutritional Appearance: obese morbidly obese Orientation/consciousness: patient oriented x3 HENMT Head: Yes normocephalic and Yes atraumatic Eyes General: appearance normal, both eyes and all related structures Pupils: Equal, round and reactive pupils present EOM: EOMs intact bilaterally Resp Effort & Inspection: normal respiratory effort Auscultation: clear to auscultation bilaterally Cardio Rate: regular rate Rhythm: regular rhythm Heart sounds: S1 normal heart sound present, S2 normal heart sound present, no gallops, no murmurs and no rubs Neuro General: patient oriented x3 and gait normal Cranial nerves: Yes Equal, round and reactive pupils present Psych Affect: normal affect Coding Level of Care Code Est Pt Level 4 (06183) Diagnoses CKD (chronic kidney disease) stage 4, GFR 15-29 ml/min N18.4 Interstitial lung disease J84.9 Anemia D64.9 Paroxysmal atrial flutter I48.92 (HFpEF) heart failure with preserved ejection fraction I50.30 Diabetes E11.9 Depression F32.9 Assessment & Plan Assessment & Plan (1) CKD (chronic kidney disease) stage 4, GFR 15-29 ml/min: Code(s): N18.4 - Chronic kidney disease, stage 4 (severe) Category: Medical Plan: Worsening?stage?IV?chronic?renal?failure. Followed?by?Dr. Bliss. Will?request?his?most?recent?notes He?is?expecting?progression?to?dialysis?and?has?referred?to?vascular?surgery?for?preparation?for?AV?fistula Follow-up?with?nephrology?as?recommended (2) Interstitial lung disease: Comment: Persistent infiltrate in the right lung , indicates possible alveolitis/interstitial lung disease. clinically it is stable and not .very symptomatic at this time Code(s): J84.9 - Interstitial pulmonary disease, unspecified Category: Medical Plan: Stable?and?lungs?are?clear Follow-up?with?Dr. Morillo (3) Anemia: Code(s): D64.9 - Anemia, unspecified Category: Medical Plan: Fairly?stable?on?Procrit Follow-up?with?nephrology?and?Hematology-Oncology (4) Paroxysmal atrial flutter: Code(s): I48.92 - Unspecified atrial flutter Category: Medical Plan: Stable Continue?apixaban Follow-up?with?Cardiology?as?recommended (5) (HFpEF) heart failure with preserved ejection fraction: Code(s): I50.30 - Unspecified diastolic (congestive) heart failure Category: Medical Plan: Stable Follow-up?with?Cardiology?as?recommended (6) Diabetes: Code(s): E11.9 - Type 2 diabetes mellitus without complications Category: Medical Plan: A1c?climbed?from?7.1%?to?7.2%. She?is?still?having?some?low?blood?sugars?though?not?as?low?as?previously Had?made?a?referral?to?endocrinology?but?she?has?not?been?seen?is?not?scheduled. Made?new?referral?today.??She?will?let?know?if?she?is?not?contacted. No?change?to?her?insulin?regimen?today.??Encouraged?her?to?work?on?diet Follow-up?with?endocrinology?and?follow-up?with?me?in?a?few?months (7) Depression: Code(s): F32.9 - Major depressive disorder, single episode, unspecified Category: Medical Plan: Patient?had?a?provider?and?is?stable?on?venlafaxine.??She?says?she?has?not?been?able?to?get?in?touch?with?the?provider. I?will?send?a?script?for?her?venlafaxine Will?ask?the?nurse?navigator?to?help?connect?her?with?a?therapist Orders: Referrals Endocrinology Referral E11.649 - Type 2 diabetes mellitus with hypoglycemia without coma, N18.4 - Chronic kidney disease, stage 4 (severe) Nurse Navigator Referral F32.9 - Major depressive disorder, single episode, unspecified Medications: Changed From venlafaxine ER 75 mg PO DAILY To venlafaxine ER Daily Dose is 112.5mg 75 mg PO DAILY 90 days 90 caps 3RF From venlafaxine ER (Effexor XR) 37.5 mg PO ONCE To venlafaxine ER (Effexor XR) Daily Dose is 112.5mg 37.5 mg PO DAILY 90 days 90 caps 3RF
[2024-09-14 15:55] VITALS: BP 140/70; PULSE 77; RESP 16; TEMP 36.3; O2SAT 98; BMI 46.2
== END 2024-09-14 16:26 | disposition home or self-care (01) ==
PROVIDERS: PCP Family Medicine; Visit Provider Family Medicine
DX: N18.4 Chronic kidney disease, stage 4 (severe) (principal); J84.9 Interstitial pulmonary disease, unspecified; I48.92 Unspecified atrial flutter; I50.30 Unspecified diastolic (congestive) heart failure; E11.9 Type 2 diabetes mellitus without complications; D64.9 Anemia, unspecified; F32.9 Major depressive disorder, single episode, unspecified

== ENCOUNTER → 2024-09-14 15:22 | Outpatient (BNVA) | payer MEDICARE, SELFPAY | PROVIDERS: PCP Family Medicine; Visit Provider Family Medicine | DX: N18.4 Chronic kidney disease, stage 4 (severe) (principal); J84.9 Interstitial pulmonary disease, unspecified; D64.9 Anemia, unspecified; I48.92 Unspecified atrial flutter; I50.30 Unspecified diastolic (congestive) heart failure; E11.9 Type 2 diabetes mellitus without complications; F32.9 Major depressive disorder, single episode, unspecified | CPT/HCPCS: 96127; 99212 ==

== ENCOUNTER 2024-10-01 15:19 | Outpatient (AMB) | payer MEDICARE, SELFPAY ==
[2024-10-01 15:21] VITALS: BP 128/78; PULSE 70; BMI 46.1
--- NOTE | 2024-10-01 15:21 | A.OFFVIS_ITS ---
Vital Signs 10/01/24 15:21 Height 5 ft 2 in Weight 252 lb BMI 46.1 BP 128/78 Blood Pressure Location Rt brachial Position Sitting Pulse 70 Pulse Source Pulse Oximeter Intake Visit Reasons: T2DM Intake Note: NEW Patient presents today to establish treatment for Type 2 Diabetes Mellitus: Last Diabetic eye exam was on: DUE in October Last Podiatry exam was on: Does not see a Entry Level Sales Representative Most recent HbA1c: 7.8%, 10/01/2024 Random Glucose- 191 mg/dL, Today Compound Worker Required: No Accompanied by: Daughter Allergies penicillin V Allergy (Severe, Verified 10/01/24 15:22) joint swelling and rash amlodipine [From [facility]] Adverse Reaction (Intermediate, Verified 10/01/24 15:22) edema HPI Comments Details: 69 year old female presenting for diabetic consultation CKD stage 4, HFPEF Eating dinner between 6-7pm. Generally taking about 10 units short acting before dinner. [facility] Medical History Heartburn On anticoagulant therapy Interstitial lung disease Respiratory failure with hypoxia Cough Exercise hypoxemia MRSA carrier CAP (community acquired pneumonia) Morbid (severe) obesity due to excess calories Heme positive stool Atrial flutter Elevated serum creatinine AMY on CPAP Chronic renal failure Secondary aldosteronism Acute renal failure Nocturnal hypoxemia Morbid obesity Diabetes type 2, controlled Oxygen dependent HTN (hypertension) Morbid obesity due to excess calories AMY (obstructive sleep apnea) Pneumonia Obesity Elevated creatine kinase Anemia Congestive heart failure High cholesterol Diabetes type 2, uncontrolled Hypertension, essential Surgical History H/O colonoscopy History of surgery History of D&C Family History Father Stroke Mother Stroke Hypertension Diabetes Maternal Grandmother Diabetes Hypertension Stroke Sister Diabetes Breast cancer Son Bipolar 1 disorder Overweight Other Mental health problem Substance abuse Social History Household Members: Children Housing: House Are you a primary point of care technician to a significant other at home: No Do you presently have visiting nurse or other home services: No Unable to assess alcohol history related to: Unable to respond Alcohol intake: current Alcohol intake frequency: does not drink Patient Tobacco Use Status: Former Tobacco user e-Cigarette/Vaping Use: Never Used Second Hand Smoke Exposure: No Advance Directives Date on File: 06/09/21 service: No Current occupational status: retired Cognitive needs: No Hearing needs: No Vision needs: Yes Physical Exam Vital Signs: Last Vital Signs Pulse 70 10/01/24 15:21 BP 128/78 10/01/24 15:21 BMI result Body Mass Index 46.1 Results AMB Hemoglobin A1c AMB Hemoglobin A1c 7.8 % Last Edit by MANNIE Coyle on 10/01/24 15:47 Results Reviewed Results Reviewed: Laboratory Last Values Glucose (Clinic) 191 mg/dL (60-115) H 10/01/24 15:31 Hgb A1c (Clinic) 7.8 % (4.0-6.0) H 10/01/24 15:35 Assessment & Plan Assessment & Plan Orders: Orders AMB Hemoglobin A1c 10/01/24 E11.649 - Type 2 diabetes mellitus with hypoglycemia without coma Medications: New acarbose with dinner 25 mg PO DAILY 90 tabs 3RF Mounjaro (tirzepatide) for 4 weeks 2.5 mg (0.5 mL) subcut QWEEK 2 mL 0RF NS Changed From insulin glargine (Lantus Solostar U-100 Insulin) 38 Units AM and 36 Units PM subcutaneously 2 times a day; 90 days 18 mL 12RF E11.9 - Type 2 diabetes mellitus without complications To Lantus Solostar U-100 Insulin (insulin glargine) 38 units (0.38 mL) subcut BID 45 mL 12RF 90 days NS E11.9 - Type 2 diabetes mellitus without complications From insulin lispro Sliding Scale: 150-200 Give 4 units 201-250 Give 6 units 251-300 Give 8 units 301-350 Give 10 units 351-400 Give 12 units 401-450 Give 14 units > 450 Give 16 units & call MD subcutaneously 4 times a day 15 minutes before meals; See Rx Instructions subcut QID 30 days 45 mL 11RF To insulin lispro Sliding Scale: 150-200 Give 2 units 201-250 Give 4 units 251-300 Give 6 units 301-350 Give 8 units 351-400 Give 10 units 401-450 Give 12 units > 450 Give 14 units & call MD subcutaneously 4 times a day 15 minutes before meals; See Rx Instructions units subcut QID 45 mL 11RF 30 days From insulin lispro Sliding Scale: 150-200 Give 2 units 201-250 Give 4 units 251-300 Give 6 units 301-350 Give 8 units 351-400 Give 10 units 401-450 Give 12 units > 450 Give 12 units & call MD subcutaneously 4 times a day; See Rx Instructions subcut QID 30 days 30 mL 11RF To insulin lispro Sliding Scale: 150-200 Give 4 units 201-250 Give 6 units 251-300 Give 8 units 301-350 Give 10 units 351-400 Give 12 units 401-450 Give 14 units > 450 Give 16 units & call MD subcutaneously 4 times a day 15 minutes before meals; See Rx Instructions units subcut QID 45 mL 11RF 30 days Coding
[2024-10-01 15:36] LABS: Glucose, Whole Blood 191 mg/dL (60-115)
== END 2024-10-01 16:00 | disposition home or self-care (01) ==
PROVIDERS: PCP Family Medicine; Visit Provider Internal Medicine
DX: E11.649 Type 2 diabetes mellitus with hypoglycemia without coma (principal)

== ENCOUNTER → 2024-10-01 15:19 | Outpatient (BNVA) | payer MEDICARE, SELFPAY | PROVIDERS: PCP Family Medicine; Visit Provider Internal Medicine | DX: E11.65 Type 2 diabetes mellitus with hyperglycemia (principal); E11.649 Type 2 diabetes mellitus with hypoglycemia without coma; Z79.4 Long term (current) use of insulin | CPT/HCPCS: 82947; 83036; 99212 ==

== ENCOUNTER 2024-10-19 07:45 | Day surgery (SDC) | payer MEDICARE, SELFPAY ==
[2024-10-19] VITALS (7 sets, daily range): BP systolic 141–180; BP diastolic 58–85; PULSE 75–78; RESP 18–20; TEMP 36.7–36.8; O2SAT 92–98; BMI 46.1
--- NOTE | 2024-10-19 07:55 | MHC.SHP ---
Pre-Procedural Eval Section A - 24 Hr Update-Section A only Date of Service: 10/19/24 The patient is an INPATIENT: No Changes since office visit: Yes Patient answered all questions The patient has been examined within 24 hours of the surgical procedure. The History & Physical has been completed within 30 days and I have reviewed it.: Yes Section B - Complete if H&P > 30 days Chief Complaint: Chronic kidney disease, stage 4 (severe) Allergies: Allergies Allergy/AdvReac Type Severity Reaction Status Date / Time penicillin V Allergy Severe joint Verified 10/01/24 15:22 swelling and rash amlodipine [From [facility]] AdvReac Intermediate edema Verified 10/01/24 15:22 Plan I have reviewed the history and physical and performed a pertinent physical examination on my patient. No changes have occurred unless specified. Time Spent With Patient Time: Total time managing care of this patient today ____ minutes.
[2024-10-19 08:35] LABS: Hematocrit 33.9 % (37.0-47.0); Hemoglobin 10.2 g/dl (12.0-16.0); Mean Corpuscular HGB Conc 30.1 g/dl (31.0-35.0); Mean Corpuscular Hemoglobin 28.8 pg (27.0-33.0); Mean Corpuscular Volume 95.8 fL (80.0-98.0); Mean Platelet Volume 9.7 fL (9.4-12.3); Platelet Count 386 X10*3/uL (160-400); Red Blood Count 3.54 X10*6/uL (4.20-5.50); Red Cell Distribution Width 16.5 % (11.0-16.0); White Blood Count 11.3 X10*3/uL (4.8-10.8)
[2024-10-19] MEDS: 0.9 % Sodium Chloride 1,000 ML 50 ML IVCONT (08:45)
[2024-10-19 09:01] LABS: Anion Gap 16 (12-20); Blood Urea Nitrogen 67 mg/dL (9-16); Calcium 8.5 mg/dL (8.4-10.2); Carbon Dioxide 22 mmol/L (22-29); Chloride 114 mmol/L (96-108); Creatinine Clr Calc Pharmacy 14.5; Estimated Glomerular Filt Rate 10; Glucose Fasting 99 mg/dL (60-99); Potassium 5.2 mmol/L (3.3-5.1); Sodium 147 mmol/L (135-145)
[2024-10-19 09:18] LABS: Glucose, Whole Blood 91 mg/dL (60-115)
[2024-10-19] MEDS: Albuterol Sulfate (0.083%) 2.5 MG/3 ML VIAL.NEB INHALE (09:28)
--- NOTE | 2024-10-19 10:07 | PC.NURSE ---
dr. segundo aware of stat labs critical result. ok to proceed. no interventions.
[2024-10-19 11:08] LABS: Glucose, Whole Blood 77 mg/dL (60-115)
[2024-10-19] MEDS: vancomycin HCL 1,500 MG in 0.9 % Sodium Chloride 500 ML 333.33 MG IV (11:29)
[2024-10-19] MEDS: Dextrose 50 % 25 GM/50 ML SYRINGE IVPUSH (11:31)
--- NOTE | 2024-10-19 11:47 | PC.NURSE ---
dr. grijalva updated regarding POC of 77. Ordered 12.5 amp dextrose given as ordered in DEC. Dr. Grijalva has remaining medication if needed in OR.
--- NOTE | 2024-10-19 13:34 | P.OP_ITS ---
Operative Note Operative Note Date of Service: 10/19/24 Narrative: Operative note by [facility] Preoperative diagnosis: Chronic renal insufficiency Postoperative diagnosis: Same Procedure: Left Arm brachiocephalic fistula creation (direct) Surgeon:Milad Julien M.D. Interactive Media Marketing Strategist: Almaz GARCIA Anesthesia: General with block Specimens: None Drains: None Estimated blood loss: 50 mL Indications: Patient was identified with chronic renal insufficiency by the nephrology team. Now presents for permanent dialysis access risks benefits complications including but not limited to bleeding, infection, ischemic neuropathy, heart failure, lymphedema, steal. The patient has signed the informed consent after reviewing risks, complications, benefits, and alternatives previously discussed with the patient. The patient was given the opportunity to ask any additional questions or voice any concerns. All questions were answered to the patient's satisfaction. Procedure in detail: Patient was brought to the operating room prior to which a time-out was called for patient identification and site verification. The patient was placed in a supine position. The left arm was prepped and draped in the standard surgical fashion. We made a small transverse incision in the antecubital fossa approximately 1-2 finger breaths just above the antecubital fossa. The cephalic vein was identified and mobilized. The fascia was incised, and the brachial artery was also identified and mobilized. Both these vessels were skeletonized. The brachial artery was free of significant disease. A good pulse was noted. The cephalic vein was mobilized proximally and distally. The brachial artery was mobilized proximally and distally. We administered 3000 units of systemic heparin. The brachial artery was then isolated with silastic loops and clamped proximally and distally. The cephalic vein was also clamped proximally. We then distally ligated the vein. We used a 2-0 silk suture ligature to close the vein. We then marked the vein. We brought the vein over and made sure there was appropriate reach. Longitudinal arteriotomy was made in the brachial artery, and this was splayed open using 2 separate stay 7 0 Prolene sutures. We then trimmed the cephalic vein appropriately. We did a circumferential anastomosis using a 6 0 Prolene. Prior to closure this was flushed clear. Then the anastomosis was completed. A good thrill was noted. Hemostasis was achieved. We closed the you wound using a deep layer of 2-0 Polysorb. Superficial layer of 3-0 Polysorb. Finally the skin was closed using a running 4-0 Monocryl in a subcuticular fashion. Sterile dressing was applied at the end the case. At the end the case sponge needle instrument counts were correct. Patient awoke and had a good radial and ulnar pulse. This note is constructed using voice recognition software. While every effort has been made to ensure accuracy, black top spreader machine operator errors may have been included. Thank you for allowing me to participate in the care of your patient. Yours sincerely, Milad Julien MD, FACS, R.P.V.I.
[2024-10-19] MEDS: Acetaminophen 325 MG TABLET 650 MG PO (14:00)
== END 2024-10-19 14:52 | disposition home or self-care (01) ==
PROVIDERS: Nurse Practitioner; PCP Family Medicine; Visit Provider Surgery Vascular Surgery
PROC: (CPT 36821; principal; 2024-10-19 09:30)
DX: E11.22 Type 2 diabetes mellitus with diabetic chronic kidney disease (principal); I13.0 Hypertensive heart and chronic kidney disease with heart failure and stage 1 through stage 4 chronic kidney disease, or unspecified chronic kidney disease; N18.4 Chronic kidney disease, stage 4 (severe); I50.9 Heart failure, unspecified; N17.9 Acute kidney failure, unspecified; Z79.4 Long term (current) use of insulin; D64.9 Anemia, unspecified; J84.9 Interstitial pulmonary disease, unspecified; Z99.81 Dependence on supplemental oxygen; G47.33 Obstructive sleep apnea (adult) (pediatric); Z88.0 Allergy status to penicillin; Z88.8 Allergy status to other drugs, medicaments and biological substances; Z87.891 Personal history of nicotine dependence
CPT/HCPCS: 36821; 36415; 80048; 82947; 85027; A4649; C1889; J0665; J1644; J2003; J2704; J2795; J3010; J3371

== ENCOUNTER → 2024-10-19 07:45 | Outpatient (BNV) | payer MEDICARE, SELFPAY | PROVIDERS: PCP Family Medicine; Visit Provider Surgery Vascular Surgery | DX: N18.9 Chronic kidney disease, unspecified (principal) | CPT/HCPCS: 36821 ==

== ENCOUNTER 2024-10-30 15:42 | Inpatient (IN) | payer MEDICARE, SELFPAY ==
--- NOTE | ~2024-10-30 | XR_ITS ---
EXAMINATION: XR CHEST CLINICAL INFORMATION: shortness of breath COMPARISON: 07/14/2024. 03/09/2024. CT chest high-resolution 03/31/2024. TECHNIQUE: 2 views of the chest were obtained. FINDINGS: There is cardiac enlargement. Apparent widening of the vascular pedicle is likely secondary to mild rotation and AP technique. Mild aortic calcification. Mediastinal contours otherwise normal. Vascular congestion in the hilar regions with engorgement. Lungs demonstrate hazy diffuse interstitial opacities right greater than left lungs, with relative sparing of the left apex. These findings likely represent CHF superimposed upon chronic interstitial lung disease. There may be a trace right effusion. No left effusion. There is no pneumothorax. There is no focal osseous or soft tissue abnormality. XR/XR chest 2V IMPRESSION: 1. Cardiomegaly. Widened vascular pedicle is most likely on the basis of AP technique and mild rotation. Ectatic vasculature is also a possibility. 2. Pulmonary findings suggestive of interstitial edema superimposed upon chronic interstitial lung disease, worst in the right lung, with relative sparing of the left apex. 3. Suggestion of tiny right effusion. Electronically signed by: Dereck Cuadra MD 10/30/2024 04:38 PM [facility]
[2024-10-30 16:08] VITALS: BP 127/59; PULSE 67; RESP 16; TEMP 36.9; O2SAT 98; BMI 46.1
--- NOTE | 2024-10-30 16:08 | ED_ITS ---
HPI - General Adult General Chief complaint: Dyspnea Stated complaint: diff breathing Time Seen by Provider: 10/30/24 18:53 Source: patient, family, EMS and old records reviewed Mode of arrival: EMS Limitations: no limitations History of Present Illness ED Provider: RUBIO HPI narrative: 69 yo female with PMH of afib on eliquis, CKD with recent L fistula with Dr. Julien no HD yet, follows with [facility], CHF with preserved EF, HTN, UTI, anemia, Dm2 comes in with c/o some weight gain but unclear how much, takes lasix 40mg BID reports she makes urine now here with c/o trying to meet her son then started to have dyspnea and the fire department arrived and put on 6L NC with sat only 94%. She had no chest pain, no recent fevers or productive sputum. She is 98% on 2L NC here. No other complaints. She was worried she was anemic no GIB symptoms reported but missed last two doses of her Procrit. 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) Location: chest Radiation: non-radiation Severity: moderate Relieving factors: rest Exacerbating factors: movement Associated symptoms: shortness of breath Treatments prior to arrival: none Related Data Home Medications ?Medication ?Instructions ?Recorded ?Confirmed ascorbic acid (vitamin C) 500 mg 500 mg PO DAILY 09/22/20 10/30/24 tablet fexofenadine 180 mg tablet 180 mg PO DAILY 09/22/20 10/30/24 multivitamin 1 tab PO DAILY 09/12/22 10/30/24 epoetin waqar 2,000 unit/mL 3,000 unit subcut Q2W 08/17/24 10/30/24 injection solution (Procrit) carvedilol 25 mg tablet 25 mg PO BID 10/30/24 10/30/24 cholecalciferol (vitamin D3) 1,250 1,250 mcg PO PISANO 10/30/24 10/30/24 mcg (50,000 unit) capsule tirzepatide 2.5 mg/0.5 mL 2.5 mg subcut MO 10/30/24 10/30/24 subcutaneous pen injector (Pako) Previous Rx's ?Medication ?Instructions ?Recorded [employer] Robert 2 Rogers (flash #1 ea 03/06/23 glucose scanning reader) miscellaneous medical supply #1 ea 02/03/24 FreeStyle Robert 2 Sensor (flash #2 ea 04/16/24 glucose sensor) hydralazine 10 mg tablet 10 mg PO BID #180 tabs 06/18/24 pen needle, diabetic 32 gauge x #300 ea 06/24/24 (BD Ultra-Fine Susana Pen Needle) albuterol sulfate 90 mcg/actuation 1 inh inhalation QID PRN shortness 07/14/24 aerosol inhaler of breath or wheezing #6.7 grams venlafaxine 37.5 mg 37.5 mg PO DAILY 90 days #90 caps 09/14/24 capsule,extended release 24 hr (Effexor XR) venlafaxine 75 mg capsule,extended 75 mg PO DAILY 90 days #90 caps 09/14/24 release 24 hr Lantus Solostar U-100 Insulin 100 38 unit (0.38 mL) subcut BID 90 10/01/24 unit/mL (3 mL) subcutaneous pen days #45 mL (insulin glargine) acarbose 25 mg tablet 25 mg PO DAILY #90 tabs 10/01/24 insulin lispro 100 unit/mL See Rx Instructions subcut QID 30 10/01/24 subcutaneous pen days #45 mL furosemide 40 mg tablet 40 mg PO BID #60 tabs 10/08/24 apixaban 5 mg tablet (Eliquis) 5 mg PO BID #60 tabs 10/13/24 atorvastatin 80 mg tablet 80 mg PO BEDTIME 90 days #90 tabs 10/13/24 Allergies Allergy/AdvReac Type Severity Reaction Status Date / Time penicillin V Allergy Severe joint Verified 10/30/24 16:11 swelling and rash amlodipine [From [facility]] AdvReac Intermediate edema Verified 10/30/24 16:11 Review of Systems 2 Review of Systems: Constitutional : No Fever, No Chills ENT/Mouth : No sore throat, No Rhinorrhea, No Swallowing Difficulty Eyes: No Eye Pain, No Swelling, No Redness Cardiovascular : No Chest Pain, positive SOB, No Orthopnea, positive Edema Respiratory : No Cough, No Sputum, No Wheezing, positive dyspnea Gastrointestinal : No Nausea, No Vomiting, No Diarrhea, No abdominal Pain, No Hematochezia, No Melena Genitourinary : No Dysuria, No Urinary Frequency, No Hematuria Musculoskeletal : No joint pain, No Myalgias Skin : No Skin Lesions, No rash Neuro : pos Weakness, No Numbness, No Dizziness, No Headache All other systems reviewed and are negative [facility] Past Medical History Attestation statement: The following information was validated with the patient. Source: old records reviewed Medical History Heartburn On anticoagulant therapy Interstitial lung disease Respiratory failure with hypoxia Cough Exercise hypoxemia MRSA carrier CAP (community acquired pneumonia) Morbid (severe) obesity due to excess calories Heme positive stool Atrial flutter Elevated serum creatinine AMY on CPAP Chronic renal failure Secondary aldosteronism Acute renal failure Nocturnal hypoxemia Morbid obesity Diabetes type 2, controlled Oxygen dependent HTN (hypertension) Morbid obesity due to excess calories AMY (obstructive sleep apnea) Pneumonia Obesity Elevated creatine kinase Anemia Congestive heart failure High cholesterol Diabetes type 2, uncontrolled Hypertension, essential Surgical History H/O colonoscopy History of surgery History of D&C Family History Family History Father Stroke Mother Stroke Hypertension Diabetes Maternal Grandmother Diabetes Hypertension Stroke Sister Diabetes Breast cancer Son Bipolar 1 disorder Overweight Other Mental health problem Substance abuse Social History Social History Household Members: Children Housing: House Are you a primary pharmacy customer care specialist to a significant other at home: No Do you presently have visiting nurse or other home services: No Unable to assess alcohol history related to: Unable to respond Alcohol intake: current Alcohol intake frequency: does not drink Comment: pt was medicated Patient Tobacco Use Status: Former Tobacco user Smoked in Last 30 Days: No e-Cigarette/Vaping Use: Never Used Second Hand Smoke Exposure: No Use of substances other than those prescribed or required for medical reasons: No Advance Directives: Yes Advance Directives on File: Yes Advance Directives Date on File: 06/09/21 Do you have a plan to hurt others: No Plan Nutrition Risks: No Nutritional Risk service: No Current occupational status: retired Cognitive needs: No Hearing needs: No Vision needs: Yes Physical Exam ED Vital Signs: Vital Signs - 24 hr 10/30/24 16:08 10/30/24 18:59 Temperature 98.4 F 97.5 F Pulse Rate 67 73 Respiratory Rate 16 18 Blood Pressure 127/59 L 173/86 H Pulse Oximetry 98 94 Oxygen Delivery Method Nasal Cannula Nasal Cannula Oxygen Flow Rate 2 BMI result Body Mass Index 46.1 Appearance: Alert. Oriented X3. No acute distress. Eyes: Pupils equal, round and reactive to light. ENT: Pharynx normal. Neck: Normal inspection. Neck supple. CVS: Normal heart rate and rhythm. Pulses normal. Respiratory: No respiratory distress. Breath sounds diminished with rales in bases Abdomen: Soft and nontender. Skin: Skin warm and dry. pale skin color. Normal skin turgor. Extremities: 1-2+ pitting lower extremity edema. No calf ttp . LUE I can feel a faint thrill there is moderate swelling in the AC fossa but no signs of infection, distal pulse intact Neuro: Oriented X 3. No motor deficit. No sensory deficit. CN2-12 intact Course Course Course Narrative: This is an RME performed by Evita Munoz CNP: Additional HPI, ROS, PE not included below will be deferred to primary provider. Patient is a 69-year-old female who presents emergency department for evaluation of dyspnea on exertion difficulty completing ADLs due to shortness of breath with onset today. 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 Her son drove her in. She has a supplemental O2 increased to 6 L from 2 L. Symptom onset today. She is due to start dialysis soon, 2 weeks ago had left AV fistula started. Reports no recent blood transfusions, receiving Procrit. Lung sounds with rales in the bilateral bases Plan: Serum labs, CXR, EKG Medications Administered Generic Name Dose Route Start Last Admin Trade Name Freq PRN Reason Stop Dose Admin Insulin Human Lispro 0 unit 10/30/24 21:00 10/30/24 21:53 Insulin Lispro 100 Unit/Ml 3 Ml Vial SUBCUT 2 unit QIDACHS [facility] Administration Protocol Discontinued Medications Generic Name Dose Route Start Last Admin Trade Name Freq PRN Reason Stop Dose Admin Furosemide 40 mg 10/30/24 19:11 10/30/24 19:20 Furosemide 40 Mg/4 Ml Vial IVPUSH 10/30/24 19:12 40 mg ONCE ONE Administration Protocol Insulin Human Regular 5 unit 10/30/24 20:48 10/30/24 21:08 Insulin Regular, Human 100 Unit/Ml 10 Ml Vial IVPUSH 10/30/24 20:49 Not Given ONCE STA Pantoprazole Sodium 80 mg 10/30/24 20:44 10/30/24 21:53 Pantoprazole Sodium 40 Mg/10 Ml Vial IVPUSH 10/30/24 20:45 80 mg ONCE STA Administration Sodium Zirconium Cyclosilicate 5 gm 10/30/24 19:11 10/30/24 19:19 Sodium Zirconium Cyclosilicate 5 Gm Powd.Pack PO 10/30/24 19:12 5 gm ONCE ONE Administration Medical Decision Making Medical Decision Making [facility] Narrative: 69 yo female with PMH of afib on eliquis, CKD with recent L fistula with Dr. Julien no HD yet, follows with [facility], CHF with preserved EF, HTN, UTI, anemia, Dm2 here with c/o dyspnea today but no chest pain - did not respond to her normal O2. At this time basic labs, EKG, trop x 2, doubt VTE given eliquis use. She has no symptoms now. No recent URI. Will need basic labs, anemia check, trop x 2. Could be CHF given edema and worsening kidney disease. Likely admit will dose with lokelma and start on IV lasix Differential Diagnosis Differential Diagnoses: The differential diagnosis associated with the presentation includes CHF, anemia Admission/Observation Consideration of admission/observation: Escalation of care including admission/observation considered admit for CHF Consult Healthcare Provider Management of the patient was discussed with: Hospitalist (will admit) Lab Data [facility] Lab Attestation statement: I reviewed the patient's lab results. 10/30/24 16:56 10/30/24 16:56 Labs: Lab Results 10/30/24 10/30/24 10/30/24 Range/Units 16:56 19:14 19:15 WBC 13.4 H (4.8-10.8) X10*3/uL RBC 2.87 L (4.20-5.50) X10*6/uL Hgb 8.3 L (12.0-16.0) g/dl Hct 28.1 L (37.0-47.0) % MCV 97.9 (80.0-98.0) fL MCH 28.9 (27.0-33.0) pg MCHC 29.5 L (31.0-35.0) g/dl RDW 17.1 H (11.0-16.0) % Plt Count 366 (160-400) X10*3/uL MPV 10.2 (9.4-12.3) fL Immature Gran % (Auto) 0.8 H (0.0-0.4) % Neut % (Auto) 89.3 H (45-73) % Lymph % (Auto) 4.8 L (20-40) % [place] % (Auto) 3.7 (2-11) % Eos % (Auto) 1.0 (0-4) % Baso % (Auto) 0.4 (0-2) % Lymph # (Auto) 0.6 L (1.2-4.9) X10*3/uL [place] # (Auto) 0.5 (0.1-1.2) X10*3/uL Eos # (Auto) 0.1 (0.0-0.4) X10*3/uL Baso # (Auto) 0.1 (0.0-0.2) X10*3/uL Abs Immat Gran (auto) 0.11 H (0.00-0.03) X10*3/uL Absolute Neuts (auto) 11.9 H (2.0-8.3) x10*3/uL Absolute Nucleated RBC 0.000 (0.0-0.012) X10*3/uL Nucleated RBC % (auto) 0.0 (0.0-0.2) /100WBC PT 13.6 H (10.9-12.4) SEC INR 1.2 H (0.9-1.1) Sodium 143 (135-145) mmol/L Potassium 5.6 H (3.3-5.1) mmol/L Chloride 115 H (96-108) mmol/L Carbon Dioxide 21 L (22-29) mmol/L Anion Gap 13 (12-20) BUN 68 H (9-16) mg/dL Creatinine 4.75 H* (0.5-1.4) mg/dL Estim Creat Clear Calc 13.2 Estimated GFR 9 Random Glucose 290 H (60-115) mg/dL Calcium 8.4 (8.4-10.2) mg/dL Magnesium 1.8 (1.6-2.6) mg/dL Total Bilirubin 0.2 (0.0-1.0) mg/dL AST 22 (5-31) U/L ALT 22 (0-31) U/L Alkaline Phosphatase 123 H (39-117) U/L Troponin I High Sens 16.2 21.5 H (<3.5-17.0) ng/L B-Natriuretic Peptide 946 H (<100) pg/mL Total Protein 6.6 (6.5-8.0) g/dL Albumin 3.0 L (3.5-5.0) g/dL Influenza Type A (PCR) NEGATIVE (Negative) Influenza Type B (PCR) NEGATIVE (Negative) RSV RNA Qual (PCR) NEGATIVE (Negative) SARS-CoV-2 RNA (RT-PCR) NEGATIVE (Negative) Blood Type O Positive Antibody Screen NEGATIVE Independent Interpretation I performed an independent interpretation of an: EKG and Plain X-Ray (edema) Interpretation: Rate: 67 Rhythm: NSR Baylis: normal Normal P waves. Normal DARIA. Normal QRS complex. ST T wave : no DENZEL, normal qTC:458 prior studies: no acute ischemia The study has been interpreted contemporaneously by me. . Radiology Impression Discussion of test interpretation with radiology: I have reviewed the radiologist's reading. Independent Historian Clinical information obtained from an independent historian. History obtained from or confirmed by: EMS and Other (daughter) External Record Review External record reviewed: Inpatient record and Outpatient record Discharge Plan Discharge Clinical Impression: Chronic anemia CKD (chronic kidney disease) Qualifiers: Chronic kidney disease stage: unspecified stage Qualified Code(s): N18.9 - Chronic kidney disease, unspecified Pulmonary edema Qualifiers: Chronicity: acute Qualified Code(s): J81.0 - Acute pulmonary edema Patient Disposition: Admitted As Inpatient
--- NOTE | 2024-10-30 16:13 | ECG_ITS ---
Test Reason : SOB Blood Pressure : */* mmHG Vent. Rate : 67 BPM Atrial Rate : 67 BPM P-R Int : 174 ms QRS Dur : 96 ms QT Int : 434 ms P-R-T Axes : 23 14 55 degrees QTcB Int : 458 ms Normal sinus rhythm Minimal voltage criteria for LVH, may be normal variant ( Reji product ) Borderline ECG When compared with ECG of 17-Apr-2024 14:40, No significant change was found Referred By: Bushra Munoz Electronically Signed By: PAPO PRITCHETT
[2024-10-30 17:02] LABS: MANUAL DIFF FLAG NO
[2024-10-30 17:13] LABS: Basophils Absolute Auto 0.1 X10*3/uL (0.0-0.2); Basophils Percent Auto 0.4 % (0-2); Eosinophils Absolute Auto 0.1 X10*3/uL (0.0-0.4); Hematocrit 28.1 % (37.0-47.0); Hemoglobin 8.3 g/dl (12.0-16.0); Imm Gran Abs Auto 0.11 X10*3/uL (0.00-0.03); Imm Gran Pct Auto 0.8 % (0.0-0.4); Lymphocytes Absolute Auto 0.6 X10*3/uL (1.2-4.9); Lymphocytes Percent Auto 4.8 % (20-40); Mean Corpuscular HGB Conc 29.5 g/dl (31.0-35.0); Mean Corpuscular Hemoglobin 28.9 pg (27.0-33.0); Mean Corpuscular Volume 97.9 fL (80.0-98.0); Mean Platelet Volume 10.2 fL (9.4-12.3); Monocytes Absolute Auto 0.5 X10*3/uL (0.1-1.2); Monocytes Percent Auto 3.7 % (2-11); Neutrophils Absolute Auto 11.9 x10*3/uL (2.0-8.3); Neutrophils Percent Auto 89.3 % (45-73); Platelet Count 366 X10*3/uL (160-400); Red Blood Count 2.87 X10*6/uL (4.20-5.50); Red Cell Distribution Width 17.1 % (11.0-16.0); White Blood Count 13.4 X10*3/uL (4.8-10.8)
[2024-10-30 17:20] LABS: INTERNATIONAL NORM RATIO 1.2 (0.9-1.1); Prothrombin Time 13.6 SEC (10.9-12.4)
[2024-10-30 17:21] LABS: Alanine Aminotransferase 22 U/L (0-31); Alkaline Phosphatase 123 U/L (39-117); Anion Gap 13 (12-20); Aspartate Amino Transferase 22 U/L (5-31); Bilirubin Total 0.2 mg/dL (0.0-1.0); Blood Urea Nitrogen 68 mg/dL (9-16); Calcium 8.4 mg/dL (8.4-10.2); Carbon Dioxide 21 mmol/L (22-29); Chloride 115 mmol/L (96-108); Creatinine Clr Calc Pharmacy 13.2; Estimated Glomerular Filt Rate 9; Glucose Random 290 mg/dL (60-115); Magnesium 1.8 mg/dL (1.6-2.6); Potassium 5.6 mmol/L (3.3-5.1); Sodium 143 mmol/L (135-145); Total Protein 6.6 g/dL (6.5-8.0)
[2024-10-30 17:25] LABS: B Type Natriuretic Peptide 946 pg/mL (<100)
[2024-10-30 17:26] LABS: Troponin-I High Sensitivity 16.2 ng/L (<3.5-17.0)
[2024-10-30 17:39] LABS: Influenza A PCR NEGATIVE (Negative); Influenza B PCR NEGATIVE (Negative); Resp Syncy Virus RNA Qual PCR NEGATIVE (Negative); SARS COV2 PCR INHOUSE NEGATIVE (Negative)
[2024-10-30 18:59] VITALS: BP 173/86; PULSE 73; RESP 18; TEMP 36.4; O2SAT 94
[2024-10-30] MEDS: Sodium Zirconium Cyclosilicate 5 GM POWD.PACK PO (19:19)
[2024-10-30] MEDS: Furosemide 40 MG/4 ML VIAL IVPUSH (19:20)
[2024-10-30 19:42] LABS: Troponin-I High Sensitivity 21.5 ng/L (<3.5-17.0)
--- NOTE | 2024-10-30 20:03 | PC.NURSE ---
Addendum entered by Darvin Gibson [facility] 10/30/24 21:18: Med rec reviewed Original Note: pt comes to ED with exertional SOB. Usually wears 2L and bumped up today when she was SOB when out with family.. In ED room pt is on 2L with SpO2 in the mid 90s. AV fistula surgery on 10/19 - site is red and swollen, not hot. Evaluated by provider. PT's family site looks improved from previously. IV line placed and 40mg lasix given IV. Lokelma also given. PT AOx4.
--- NOTE | 2024-10-30 20:28 | PM.IMHP ---
History of Present Illness Date of Service: 10/30/24 Attending physician on admission: Jason Hernandez Chief Complaint: SOB Pt is a 69-year-old female with a PMH significant for?paroxysmal AFib on Eliquis, HFpEF, CKD 4 with recent left fistula placed but not yet on HD, interstitial lung disease chronically on 2L home O2, HTN, HTN, and insulin-dependent type 2 diabetes who presents to the ED with?increased shortness a breath and LIM since this morning. Pt reports symptoms began earlier in the morning when she was getting ready for an appointment and became out of breath while dressing. Pt had to stop and rest before continuing. Pt continued to get out of breath with minimal exertion, eventually having to increase home O2 which offered some relief. EMS report when they arrived she was satting at 94% on 6L. Pt also complains of new nonproductive cough the past few days. Denies orthopnea or increased use of pillows. Had some increased lower leg edema especially left leg 2 days ago, but none today. Denies fever, chills, nausea, vomiting, abdominal pain. No chest pain/pressure, palpitations. Of note, pt reports she is supposed to be taking Lokelma 3 times a week, however can not tolerate the taste and has not been taking any Lokelma for the past few months. Pt also reports has missed her last 2 Procrit injections. Denies hemoptysis, hematemesis, hematochezia, melena, or any other acute bleeding. In the ED pt was hypertensive up to 173/86. Labs were significant for leukocytosis of 13.4, H&H 8.3/28.1, potassium 5.6, chloride 115, BUN 68, creatinine 4.75, alk-phos 123, initial troponin 16.2 with repeat flat at 21.5, BNP elevated at 946, and albumin 3.0. Tested negative for RSV, COVID, flu. CXR showed cardiomegaly and likely interstitial edema superimposed upon chronic interstitial lung disease. EKG demonstrated normal sinus rhythm without significant ST elevations or depressions, similar to previous. Pt was treated with Lokelma and Lasix IV 40 mg. Pt will be admitted to the hospital for treatment and further evaluation of multiple issues, including acute chronic hypoxic failure in the setting of CHF exacerbation, acute hyperkalemia, and acute on chronic anemia. Review of Systems Review of Systems: Negative except for that which is stated in the HPI. [facility] Medical History Heartburn On anticoagulant therapy Interstitial lung disease Respiratory failure with hypoxia Cough Exercise hypoxemia MRSA carrier CAP (community acquired pneumonia) Morbid (severe) obesity due to excess calories Heme positive stool Atrial flutter Elevated serum creatinine AMY on CPAP Chronic renal failure Secondary aldosteronism Acute renal failure Nocturnal hypoxemia Morbid obesity Diabetes type 2, controlled Oxygen dependent HTN (hypertension) Morbid obesity due to excess calories AMY (obstructive sleep apnea) Pneumonia Obesity Elevated creatine kinase Anemia Congestive heart failure High cholesterol Diabetes type 2, uncontrolled Hypertension, essential Family History Father Stroke Mother Stroke Hypertension Diabetes Maternal Grandmother Diabetes Hypertension Stroke Sister Diabetes Breast cancer Son Bipolar 1 disorder Overweight Other Mental health problem Substance abuse Surgical History H/O colonoscopy History of surgery History of D&C Social History Household Members: Children Housing: House Are you a primary career resource specialist to a significant other at home: No Do you presently have visiting nurse or other home services: No Unable to assess alcohol history related to: Unable to respond Alcohol intake: current Alcohol intake frequency: does not drink Comment: pt was medicated Patient Tobacco Use Status: Former Tobacco user Smoked in Last 30 Days: No e-Cigarette/Vaping Use: Never Used Second Hand Smoke Exposure: No Use of substances other than those prescribed or required for medical reasons: No Advance Directives: Yes Advance Directives on File: Yes Advance Directives Date on File: 06/09/21 Do you have a plan to hurt others: No Plan Nutrition Risks: No Nutritional Risk service: No Current occupational status: retired Cognitive needs: No Hearing needs: No Vision needs: Yes Meds Allergies Allergy/AdvReac Type Severity Reaction Status Date / Time penicillin V Allergy Severe joint Verified 10/30/24 16:11 swelling and rash amlodipine [From Norvasc] AdvReac Intermediate edema Verified 10/30/24 16:11 Home Medications ?Medication ?Instructions ?Recorded ?Confirmed ?Last Taken ?Type ascorbic acid (vitamin C) 500 mg 500 mg PO DAILY 09/22/20 10/30/24 10/30/24 History tablet fexofenadine 180 mg tablet 180 mg PO DAILY 09/22/20 10/30/24 10/30/24 History multivitamin 1 tab PO DAILY 09/12/22 10/30/24 10/30/24 History epoetin waqar 2,000 unit/mL 3,000 unit subcut Q2W 08/17/24 10/30/24 1 Month Ago History injection solution (Procrit) ~09/29/24 carvedilol 25 mg tablet 25 mg PO BID 10/30/24 10/30/24 10/30/24 History cholecalciferol (vitamin D3) 1,250 1,250 mcg PO PISANO 10/30/24 10/30/24 10/25/24 History mcg (50,000 unit) capsule tirzepatide 2.5 mg/0.5 mL 2.5 mg subcut MO 10/30/24 10/30/24 10/26/24 History subcutaneous pen injector (Pako) Physical Exam Vital Signs and Narrative: Vital Signs: Last Vital Signs Temp 97.5 F 10/30/24 18:59 Pulse 73 10/30/24 18:59 Resp 18 10/30/24 18:59 BP 173/86 H 10/30/24 18:59 Pulse Ox 94 10/30/24 18:59 O2 Del Method Nasal Cannula 10/30/24 18:59 O2 Flow Rate 2 10/30/24 18:59 Oxygen Flow Rate 2 10/30/24 16:08 BMI result Body Mass Index 46.1 General: AOx3, no acute distress Resp: Bibasilar crackles. CVS: S1, S2, RRR GI: +BS, NT, no distention Skin: Warm, dry Neuro: Cranial nerves II-XII grossly intact bilaterally. Motor grossly intact bilaterally Extremities: Non pitting lower leg edema Psych: Appropriate affect Results Labs 10/30/24 16:56 10/30/24 16:56 Labs: Laboratory Results - last 24 hr 10/30/24 10/30/24 10/30/24 16:56 19:14 19:15 MCV 97.9 MCH 28.9 MCHC 29.5 L RDW 17.1 H Plt Count 366 MPV 10.2 Immature Gran % (Auto) 0.8 H Neut % (Auto) 89.3 H Lymph % (Auto) 4.8 L [place] % (Auto) 3.7 Eos % (Auto) 1.0 Baso % (Auto) 0.4 Lymph # (Auto) 0.6 L [place] # (Auto) 0.5 Eos # (Auto) 0.1 Baso # (Auto) 0.1 Abs Immat Gran (auto) 0.11 H Absolute Neuts (auto) 11.9 H Absolute Nucleated RBC 0.000 Nucleated RBC % (auto) 0.0 PT 13.6 H INR 1.2 H Anion Gap 13 Estim Creat Clear Calc 13.2 Estimated GFR 9 Random Glucose 290 H Calcium 8.4 Magnesium 1.8 Total Bilirubin 0.2 AST 22 ALT 22 Alkaline Phosphatase 123 H Troponin I High Sens 16.2 21.5 H B-Natriuretic Peptide 946 H Total Protein 6.6 Albumin 3.0 L Influenza Type A (PCR) NEGATIVE Influenza Type B (PCR) NEGATIVE RSV RNA Qual (PCR) NEGATIVE SARS-CoV-2 RNA (RT-PCR) NEGATIVE Blood Type O Positive Antibody Screen NEGATIVE Imaging Radiologist's Impressions: Impressions Chest X-Ray 10/30/24 16:15 IMPRESSION: 1. Cardiomegaly. Widened vascular pedicle is most likely on the basis of AP technique and mild rotation. Ectatic vasculature is also a possibility. 2. Pulmonary findings suggestive of interstitial edema superimposed upon chronic interstitial lung disease, worst in the right lung, with relative sparing of the left apex. 3. Suggestion of tiny right effusion. Electronically signed by: Dereck Cuadra MD 10/30/2024 04:38 PM [facility] Assessment and Plan (1) Acute on chronic hypoxic respiratory failure: Status: Acute (2) Acute exacerbation of CHF (congestive heart failure): Status: Acute Plan Pt is a 69-year-old female with a PMH significant for?paroxysmal AFib on Eliquis, HFpEF, CKD 4 with recent left fistula placed but not yet on HD, interstitial lung disease chronically on 2L home O2, HTN, HTN, and insulin-dependent type 2 diabetes who presents to the ED with?increased shortness a breath and LIM since this morning. Pt will be admitted to the hospital for treatment and further evaluation of multiple issues, including acute chronic hypoxic failure in the setting of CHF exacerbation, acute hyperkalemia, and acute on chronic anemia. Acute on chronic hypoxic respiratory failure in the setting of acute CHF exacerbation Pt with increased SOB, O2 requirements, CXR showing interstitial edema, elevated BNP above baseline Will treat with Lasix 40 mg IV b.i.d. Echocardiogram Monitor I/O, daily weights, lytes Low-salt diet Cardiology consult Monitor on telemetry Acute hyperkalemia Potassium 5.6 at time of presentation Pt noncompliant with Lokelma at home Pt recently received left fistula with Dr. Julien, not yet on HD Pt received Lokelma in the ED Will treat with Lokelma daily for now Nephrology consult Follow up potassium closely Renal diet Monitor on telemetry Acute on chronic normocytic anemia Patient's H&H 8.3/28.1, decreased from 10.2/33.9 on 10/19/2024 Pt reports has missed her last 2 Procrit injections Pt denies active bleeding, no hematochezia, hematemesis, melena Will empirically treat with Protonix Hold Eliquis Follow H&H closely Elevated troponins Initial troponin 16.2 with repeat flat at 21.5 Pt asymptomatic, EKG without ischemic changes Likely type 2 in the setting of increased demand Monitor on telemetry HTN Continue carvedilol, hydralazine HLD Continue statin Insulin-dependent type 2 diabetes Sliding-scale insulin, Lantus AMY CPAP at night Full Code Attending:?Dr. Manzo DVT Prophylaxis: Pneumatic compression due to worsening anemia Pt will require a hospitalization of at least two nights for treatment of?acute on chronic hypoxic respiratory failure in the setting of acute CHF exacerbation, as well as acute on chronic anemia and acute hyperkalemia. Given patient's multiple comorbidities and inability to tolerate exertion, she will require hospital level care for administration of IV diuretics and close monitoring of cardiac function and labs. Quality Stroke Does the patient have a stroke diagnosis?: No VTE Prior VTE?: No VTE Risk Level:: Medical - moderate - high VTE Device Contraindication: N/A - Device Ordered VTE Drug Contraindication: Treatment Not Indicated
--- NOTE | 2024-10-30 21:00 | PHA.MEDREC ---
Pharmacy Consult ? Medication Reconciliation Pharmacy has completed the medication reconciliation. Spoke with patient and she was able to confirmed the medications. She confirmed her Insulin Lispro and stated she should be doing it QID before meals but states she is not compliant with it or when she tests sometimes she does not need to take it but confirmed she took it yesterday. She confirmed the Lantus Solostar and confirmed she is injecting 38 units in the morning and at night. She confirmed her Vitamin D3 50,000 unit tab once a week and confirmed she takes it on Sundays and took it this past Saturday. She confirmed the epoetin waqar 2,000 unit/mL injection solution and confirmed she is still taking it but has not been able to in about a month because she got sick for most of September, had a surgery on October 20 and was not able to take it then and then she said she was going to take it today but ended up in the ED. She confirmed her Monjaro 2.5 mg/0.5 mL injection and stated she just started it and took her first dose on Saturday10/26/24. She confirmed she took the Insulin Lispro and the Lantus Solostar yesterday and was not able to take them today and confirmed she took her morning dose of medications this morning.
[2024-10-30 21:02] LABS: Glucose, Whole Blood 168 mg/dL (60-115)
--- NOTE | 2024-10-30 21:06 | PC.NURSE ---
repeat POC 168. Per Dr. Hernandez hold IVP insulin for now for hyperkalemia and recheck labs by 0100 .
[2024-10-30 21:36] VITALS: BP 156/59; PULSE 82; RESP 22; TEMP 36.6; O2SAT 98
[2024-10-30] MEDS: Insulin Lispro 100 UNIT/ML 3 ML VIAL SUBCUT (21:53)
[2024-10-30] MEDS: Pantoprazole Sodium 40 MG/10 ML VIAL 80 MG IVPUSH (21:53)
--- NOTE | 2024-10-30 22:17 | PC.NURSE ---
1000 ml urine output
[2024-10-31] VITALS (8 sets, daily range): BP systolic 138–192; BP diastolic 58–89; PULSE 69–79; RESP 16–20; TEMP 36.6–37.2; O2SAT 94–97
[2024-10-31 01:41] LABS: Hematocrit 25.8 % (37.0-47.0); Hemoglobin 7.9 g/dl (12.0-16.0); Mean Corpuscular HGB Conc 30.6 g/dl (31.0-35.0); Mean Corpuscular Volume 94.9 fL (80.0-98.0); Platelet Count 348 X10*3/uL (160-400); Red Blood Count 2.72 X10*6/uL (4.20-5.50); Red Cell Distribution Width 16.9 % (11.0-16.0)
[2024-10-31 02:02] LABS: Anion Gap 14 (12-20); Blood Urea Nitrogen 70 mg/dL (9-16); Calcium 8.3 mg/dL (8.4-10.2); Carbon Dioxide 19 mmol/L (22-29); Chloride 115 mmol/L (96-108); Creatinine Clr Calc Pharmacy 13.8; Estimated Glomerular Filt Rate 10; Glucose Random 105 mg/dL (60-115); Magnesium 1.8 mg/dL (1.6-2.6); Potassium 4.4 mmol/L (3.3-5.1); Sodium 144 mmol/L (135-145)
[2024-10-31 02:06] LABS: Troponin-I High Sensitivity 26.2 ng/L (<3.5-17.0)
[2024-10-31 06:28] LABS: Alanine Aminotransferase 17 U/L (0-31); Albumin Level 2.8 g/dL (3.5-5.0); Alkaline Phosphatase 101 U/L (39-117); Anion Gap 15 (12-20); Aspartate Amino Transferase 19 U/L (5-31); Bilirubin Total 0.2 mg/dL (0.0-1.0); Blood Urea Nitrogen 67 mg/dL (9-16); Calcium 7.9 mg/dL (8.4-10.2); Carbon Dioxide 18 mmol/L (22-29); Chloride 116 mmol/L (96-108); Creatinine Clr Calc Pharmacy 13.6; Estimated Glomerular Filt Rate 9; Glucose Random 98 mg/dL (60-115); Potassium 4.2 mmol/L (3.3-5.1); Sodium 145 mmol/L (135-145); Total Protein 6.1 g/dL (6.5-8.0)
[2024-10-31 07:21] LABS: Glucose, Whole Blood 102 mg/dL (60-115)
--- NOTE | 2024-10-31 08:18 | PC.NURSE ---
pt is alert and oriented, skin pwd, respirations even and unlabored, ls diminished, pt does report feeling sob at this time, left upper arm brand new fistula- as of now no date set of for the start of dialysis, left arm also swollen
[2024-10-31] MEDS: Loratadine 10 MG TABLET PO (10:01)
[2024-10-31] MEDS: Pantoprazole Sodium 40 MG/10 ML VIAL IVPUSH ×2 (10:02→20:21)
[2024-10-31] MEDS: Venlafaxine HCl ER 37.5 MG CAP.ER.24H PO (10:02)
[2024-10-31] MEDS: Ascorbic Acid 500 MG TABLET PO (10:02)
[2024-10-31] MEDS: carvediloL 25 MG TABLET PO ×2 (10:02→20:20)
[2024-10-31] MEDS: Multivitamin TABLET 1 TAB PO (10:02)
[2024-10-31] MEDS: Insulin Glargine,Hum.rec.anlog 100 UNIT/ML 10 ML VIAL 38 UNIT SUBCUT ×2 (10:02→20:32)
[2024-10-31] MEDS: Venlafaxine HCl ER 75 MG CAP.ER.24H PO (10:03)
[2024-10-31] MEDS: 0.9 % Sodium Chloride Flush 3 ML SYRINGE IVFLUSH ×3 (10:37→20:25)
[2024-10-31] MEDS: Sodium Zirconium Cyclosilicate 5 GM POWD.PACK PO (11:00)
[2024-10-31 11:52] LABS: Glucose, Whole Blood 154 mg/dL (60-115)
[2024-10-31] MEDS: Insulin Lispro 100 UNIT/ML 3 ML VIAL SUBCUT (12:56)
--- NOTE | 2024-10-31 14:02 | P.PNIM_ITS ---
Subjective Subjective Date of Service: 10/31/24 Interval History: likely ckd 5 , chf , av fistula erythema Review of Systems sob somewhat improving, no chest pain denies any gross bleeding or melena Physical Exam 2 Vital Signs: Vital Signs: Last Vital Signs Temp 98.4 F 10/31/24 11:04 Pulse 72 10/31/24 11:04 Resp 18 10/31/24 11:04 BP 150/66 H 10/31/24 11:04 Pulse Ox 96 10/31/24 11:04 O2 Del Method Nasal Cannula 10/31/24 11:04 O2 Flow Rate 2 10/31/24 11:04 Oxygen Flow Rate 2 10/30/24 16:08 BMI result Body Mass Index 46.1 Appearance: Alert.? Oriented X3.? cvs: [id number], [id number] , no murmur res: air entry seems improving , has few rales sacttered at bases. abd: no rebound or guarding ,nt, bs present. ext pulses present , no cyanosis .edema mostly nonpittin neuro: axo3 , moves all ext. Objective Data Active Medications Acetaminophen (Acetaminophen 325 Mg Tablet) 975 mg PO Q6H PRN PRN Reason: Pain, Mild 1-3,fever,headache Ascorbic Acid (Ascorbic Acid 500 Mg Tablet) 500 mg PO DAILY [facility] Last Admin: 10/31/24 10:02 Dose: 500 mg Documented By: JOSE F Atorvastatin Calcium (Atorvastatin Calcium 80 Mg Tablet) 80 mg PO BEDTIME [facility] Carvedilol (Carvedilol 25 Mg Tablet) 25 mg PO BID [facility]; Protocol Last Admin: 10/31/24 10:02 Dose: 25 mg Documented By: JOSE F Glucose (Glucose Gel 15 Gm Gel..Gram.) 15 gm PO Q15M PRN; Protocol PRN Reason: per Hypoglycemia Standing Ord. Hydralazine HCl (Hydralazine Hcl 25 Mg Tablet) 25 mg PO BID [facility]; Protocol Dextrose (D10) 250 mls @ 750 mls/hr IV Q15M PRN; Protocol PRN Reason: per Hypoglycemia Standing Ord. Insulin Glargine (Insulin Glargine,Hum.Rec.Anlog 100 Unit/Ml 10 Ml Vial) 38 unit SUBCUT BID [facility] Last Admin: 10/31/24 10:02 Dose: 38 unit Documented By: JOSE F Insulin Human Lispro (Insulin Lispro 100 Unit/Ml 3 Ml Vial) 0 unit SUBCUT QIDACHS [facility]; Protocol Last Admin: 10/31/24 12:56 Dose: 2 unit Documented By: JOSE F Loratadine (Loratadine 10 Mg Tablet) 10 mg PO DAILY [facility] Last Admin: 10/31/24 10:01 Dose: 10 mg Documented By: JOSE F Multivitamins/Vitamin C (Multivitamin Tablet) 1 tab PO DAILY [facility] Last Admin: 10/31/24 10:02 Dose: 1 tab Documented By: JOSE F Non-Formulary Medication (Cholecalciferol (Vitamin D3)) 1,250 mcg PO PISANO [facility] Pantoprazole Sodium (Pantoprazole Sodium 40 Mg/10 Ml Vial) 40 mg IVPUSH BID [facility] Last Admin: 10/31/24 10:02 Dose: 40 mg Documented By: JOSE F Sodium Bicarbonate (Sodium Bicarbonate 650 Mg Tablet) 650 mg PO BID [facility] Sodium Chloride (0.9 % Sodium Chloride Flush 3 Ml Syringe) 3 ml IVFLUSH QSHIFT [facility] Last Admin: 10/31/24 10:37 Dose: 3 ml Documented By: JOSE F Sodium Zirconium Cyclosilicate (Sodium Zirconium Cyclosilicate 5 Gm Powd.Pack) 5 gm PO DAILY [facility] Last Admin: 10/31/24 11:00 Dose: 5 gm Documented By: JOSE F Venlafaxine HCl (Venlafaxine Hcl Er 37.5 Mg Cap.Er.24h) 37.5 mg PO DAILY [facility] Last Admin: 10/31/24 10:02 Dose: 37.5 mg Documented By: JOSE F Venlafaxine HCl (Venlafaxine Hcl Er 75 Mg Cap.Er.24h) 75 mg PO DAILY [facility] Last Admin: 10/31/24 10:03 Dose: 75 mg Documented By: JOSE F Labs 10/31/24 14:31 10/31/24 06:00 Labs: Laboratory Results - last 24 hr 10/30/24 10/30/24 10/30/24 16:56 19:14 19:15 MCV 97.9 MCH 28.9 MCHC 29.5 L RDW 17.1 H Plt Count 366 MPV 10.2 Immature Gran % (Auto) 0.8 H Neut % (Auto) 89.3 H Lymph % (Auto) 4.8 L Glades % (Auto) 3.7 Eos % (Auto) 1.0 Baso % (Auto) 0.4 Lymph # (Auto) 0.6 L Glades # (Auto) 0.5 Eos # (Auto) 0.1 Baso # (Auto) 0.1 Abs Immat Gran (auto) 0.11 H Absolute Neuts (auto) 11.9 H Absolute Nucleated RBC 0.000 Nucleated RBC % (auto) 0.0 Hold Purple Top PT 13.6 H INR 1.2 H Anion Gap 13 Estim Creat Clear Calc 13.2 Estimated GFR 9 POC Glucose Random Glucose 290 H Calcium 8.4 Magnesium 1.8 Total Bilirubin 0.2 AST 22 ALT 22 Alkaline Phosphatase 123 H Troponin I High Sens 16.2 21.5 H B-Natriuretic Peptide 946 H Total Protein 6.6 Albumin 3.0 L Influenza Type A (PCR) NEGATIVE Influenza Type B (PCR) NEGATIVE RSV RNA Qual (PCR) NEGATIVE SARS-CoV-2 RNA (RT-PCR) NEGATIVE Blood Type O Positive Antibody Screen NEGATIVE 10/30/24 10/31/24 10/31/24 20:58 01:23 06:00 MCV 94.9 MCH 29.0 MCHC 30.6 L RDW 16.9 H Plt Count 348 MPV 10.0 Immature Gran % (Auto) Neut % (Auto) Lymph % (Auto) Glades % (Auto) Eos % (Auto) Baso % (Auto) Lymph # (Auto) Glades # (Auto) Eos # (Auto) Baso # (Auto) Abs Immat Gran (auto) Absolute Neuts (auto) Absolute Nucleated RBC 0.000 Nucleated RBC % (auto) 0.0 Hold Purple Top SEE NOTE PT INR Anion Gap 14 15 Estim Creat Clear Calc 13.8 13.6 Estimated GFR 10 9 POC Glucose 168 H Random Glucose 105 98 Calcium 8.3 L 7.9 L Magnesium 1.8 Total Bilirubin 0.2 AST 19 ALT 17 Alkaline Phosphatase 101 Troponin I High Sens 26.2 H B-Natriuretic Peptide Total Protein 6.1 L Albumin 2.8 L Influenza Type A (PCR) Influenza Type B (PCR) RSV RNA Qual (PCR) SARS-CoV-2 RNA (RT-PCR) Blood Type Antibody Screen 10/31/24 10/31/24 07:18 11:03 MCV MCH MCHC RDW Plt Count MPV Immature Gran % (Auto) Neut % (Auto) Lymph % (Auto) Glades % (Auto) Eos % (Auto) Baso % (Auto) Lymph # (Auto) Glades # (Auto) Eos # (Auto) Baso # (Auto) Abs Immat Gran (auto) Absolute Neuts (auto) Absolute Nucleated RBC Nucleated RBC % (auto) Hold Purple Top PT INR Anion Gap Estim Creat Clear Calc Estimated GFR POC Glucose 102 154 H Random Glucose Calcium Magnesium Total Bilirubin AST ALT Alkaline Phosphatase Troponin I High Sens B-Natriuretic Peptide Total Protein Albumin Influenza Type A (PCR) Influenza Type B (PCR) RSV RNA Qual (PCR) SARS-CoV-2 RNA (RT-PCR) Blood Type Antibody Screen Assessment and Plan (1) Acute exacerbation of CHF (congestive heart failure): Status: Acute Assessment and Plan: 69-year-old female with a PMH significant for?paroxysmal AFib on Eliquis, HFpEF, CKD 4 with recent left fistula placed but not yet on HD, interstitial lung disease chronically on 2L home O2, HTN, HTN, and insulin-dependent type 2 diabetes who presents to the ED with?increased shortness a breath and LIM since this morning. Pt will be admitted to the hospital for treatment and further evaluation of multiple issues, including acute chronic hypoxic failure in the setting of CHF exacerbation, acute hyperkalemia, and acute on chronic anemia. Acute on chronic hypoxic respiratory failure in the setting of acute CHF exacerbation SOB somewhat improving, O2 requirements, CXR showing interstitial edema, elevated BNP above baseline trops thought to be related to demanad. Monitor on telemetry patient says her sob somewhat improving and also producing good urine after lasix but not documented. continue Lasix 40 mg IV b.i.d.,Echocardiogram Monitor I/O, daily weights, lytes,Low-salt diet d/w staff an patient in detail-we need close monitering of i/o. if does not improves further might need Hd. possible ckd5:Acute hyperkalemia improved with loklema has left fistula with Dr. Julien on 10/19/24, not yet on HD added sodium bicarb due to low bicarb. Nephrology consult- moniter renal function and electrolytes closely Acute on chronic normocytic anemia h/h : 7.7/24.9( which seems like hb above 8 when adjusted for hct). type and screen done hb/hct somewhat decreasing ? realted aocd ( workup done on 08/13 -please refer to hematology note). missed her last 2 Procrit injections, denies active bleeding, no hematochezia, hematemesis, melena. as per jul note Dr Dunne oncology:workup She had an upper endoscopy and colonoscopy in July which were benign. 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 moniter h/h . HTN Continue carvedilol, hydralazine HLD Continue statin Insulin-dependent type 2 diabetes Sliding-scale insulin, Lantus AMY CPAP at night Full Code DVT Prophylaxis: Pneumatic compression due to worsening anemia ongoing need for hospitalization for treatment of?acute on chronic hypoxic respiratory failure in the setting of acute CHF exacerbation and advanced ckd with electrolytic abnormalities- need i/o ,renal function electrolytic monitering ,oxygentapering. Quality Stroke Does the patient have a stroke diagnosis?: No VTE Prior VTE?: No VTE Risk Level:: Medical - moderate - high VTE Device Contraindication: N/A - Device Ordered VTE Drug Contraindication: Treatment Not Indicated
[2024-10-31 14:42] LABS: Hematocrit 24.9 % (37.0-47.0); Hemoglobin 7.7 g/dl (12.0-16.0)
[2024-10-31] MEDS: ceFAZolin Sodium/Dextrose,Iso 2 GM/50 ML PIGGYBACK IV (15:07)
[2024-10-31] MEDS: Sodium Bicarbonate 650 MG TABLET PO ×2 (15:07→20:22)
[2024-10-31 15:09] LABS: Iron 32 mcg/dL (30-160); Percent Iron Saturation 24 % (15-50); Total Iron Binding Capacity 134 mcg/dL (228-428); Unsaturated Iron Binding 102 ug/dL
[2024-10-31 15:44] LABS: Folate 15.8 ng/mL (> or = 4.0); Vitamin B12 566 pg/mL (200-900)
[2024-10-31 16:30] LABS: Glucose, Whole Blood 138 mg/dL (60-115)
[2024-10-31 17:33] LABS: Ferritin 2552 ng/mL (10-250)
[2024-10-31] MEDS: Apixaban 5 MG TABLET PO (20:20)
[2024-10-31] MEDS: Atorvastatin Calcium 80 MG TABLET PO (20:20)
[2024-10-31] MEDS: hydrALAZINE HCl 25 MG TABLET PO (20:21)
[2024-10-31 20:36] LABS: Glucose, Whole Blood 145 mg/dL (60-115)
[2024-11-01] VITALS (8 sets, daily range): BP systolic 129–186; BP diastolic 58–86; PULSE 67–97; RESP 18–20; TEMP 36.2–36.8; O2SAT 94–98
[2024-11-01 05:57] LABS: Glucose, Whole Blood 46 mg/dL (60-115)
[2024-11-01 06:17] LABS: Glucose, Whole Blood 75 mg/dL (60-115)
[2024-11-01 07:32] LABS: Glucose, Whole Blood 121 mg/dL (60-115)
[2024-11-01 08:00] LABS: Hematocrit 26.7 % (37.0-47.0); Hemoglobin 8.1 g/dl (12.0-16.0)
[2024-11-01 08:22] LABS: Anion Gap 15 (12-20); Blood Urea Nitrogen 66 mg/dL (9-16); Calcium 8.1 mg/dL (8.4-10.2); Carbon Dioxide 19 mmol/L (22-29); Chloride 114 mmol/L (96-108); Creatinine Clr Calc Pharmacy 13.4; Estimated Glomerular Filt Rate 9; Glucose Random 120 mg/dL (60-115); Potassium 4.7 mmol/L (3.3-5.1); Sodium 143 mmol/L (135-145)
[2024-11-01] MEDS: Sodium Bicarbonate 650 MG TABLET PO ×2 (08:39→21:43)
[2024-11-01] MEDS: Apixaban 5 MG TABLET PO ×2 (08:39→21:42)
[2024-11-01] MEDS: Ascorbic Acid 500 MG TABLET PO (08:39)
[2024-11-01] MEDS: Venlafaxine HCl ER 75 MG CAP.ER.24H PO (08:39)
[2024-11-01] MEDS: Pantoprazole Sodium 40 MG/10 ML VIAL IVPUSH ×2 (08:39→21:44)
[2024-11-01] MEDS: hydrALAZINE HCl 25 MG TABLET PO ×2 (08:39→21:42)
[2024-11-01] MEDS: Loratadine 10 MG TABLET PO (08:39)
[2024-11-01] MEDS: Multivitamin TABLET 1 TAB PO (08:39)
[2024-11-01] MEDS: Venlafaxine HCl ER 37.5 MG CAP.ER.24H PO (08:39)
[2024-11-01] MEDS: carvediloL 25 MG TABLET PO ×2 (08:39→21:43)
[2024-11-01] MEDS: 0.9 % Sodium Chloride Flush 3 ML SYRINGE IVFLUSH ×3 (08:43→21:44)
[2024-11-01] MEDS: Insulin Glargine,Hum.rec.anlog 100 UNIT/ML 10 ML VIAL 38 UNIT SUBCUT (08:43)
[2024-11-01] MEDS: Sodium Zirconium Cyclosilicate 5 GM POWD.PACK PO (11:00)
[2024-11-01 11:36] LABS: Glucose, Whole Blood 137 mg/dL (60-115)
--- NOTE | 2024-11-01 11:52 | MHC.CM.PN ---
PT REPORTS HE SON AND DAUGHTER IN LAW LIVE WITH HER SHE HAS NO SERVICES CURRENTLY, BUT IS WORKING WITH [facility] TO GET SOME IN PLACE SHE USES A CANE AND A WHEEL CHAIR PRN HCP ON FILE PCP: TREMAINE KOVACS IMM DELIVERED ON 10/31 DCP: HOME VIA FAM[facility] TRAN[facility]
--- NOTE | 2024-11-01 13:41 | P.PNIM_ITS ---
Subjective Subjective Date of Service: 11/01/24 Interval History: likely ckd 5 , chf , av fistula erythema Review of Systems sob somewhat improving, no chest pain denies any gross bleeding or melena Physical Exam 2 Vital Signs: Vital Signs: Last Vital Signs Temp 98.2 F 11/01/24 10:45 Pulse 79 11/01/24 10:45 Resp 18 11/01/24 10:45 BP 148/73 H 11/01/24 06:55 Pulse Ox 94 11/01/24 10:45 O2 Del Method Nasal Cannula 11/01/24 10:45 O2 Flow Rate 2 11/01/24 10:45 Oxygen Flow Rate 2 10/30/24 16:08 BMI result Body Mass Index 46.1 Appearance: Alert.? Oriented X3.? cvs: rrr, [id number] . res: air entry seems improving , has few rales sacttered at bases. abd: no rebound or guarding ,nt, bs present. ext pulses present , no cyanosis .edema mostly nonpittin neuro: axo3 , moves all ext. Objective Data Active Medications Acetaminophen (Acetaminophen 325 Mg Tablet) 975 mg PO Q6H PRN PRN Reason: Pain, Mild 1-3,fever,headache Apixaban (Apixaban 5 Mg Tablet) 5 mg PO BID [facility] Last Admin: 11/01/24 08:39 Dose: 5 mg Documented By: JOSE F Ascorbic Acid (Ascorbic Acid 500 Mg Tablet) 500 mg PO DAILY [facility] Last Admin: 11/01/24 08:39 Dose: 500 mg Documented By: JOSE F Atorvastatin Calcium (Atorvastatin Calcium 80 Mg Tablet) 80 mg PO BEDTIME [facility] Last Admin: 10/31/24 20:20 Dose: 80 mg Documented By: VARGAS Carvedilol (Carvedilol 25 Mg Tablet) 25 mg PO BID [facility]; Protocol Last Admin: 11/01/24 08:39 Dose: 25 mg Documented By: JOSE F Glucose (Glucose Gel 15 Gm Gel..Gram.) 15 gm PO Q15M PRN; Protocol PRN Reason: per Hypoglycemia Standing Ord. Hydralazine HCl (Hydralazine Hcl 25 Mg Tablet) 25 mg PO BID [facility]; Protocol Last Admin: 11/01/24 08:39 Dose: 25 mg Documented By: JOSE F Dextrose (D10) 250 mls @ 750 mls/hr IV Q15M PRN; Protocol PRN Reason: per Hypoglycemia Standing Ord. Insulin Glargine (Insulin Glargine,Hum.Rec.Anlog 100 Unit/Ml 10 Ml Vial) 38 unit SUBCUT BID [facility] Last Admin: 11/01/24 08:43 Dose: 38 unit Documented By: JOSE F Insulin Human Lispro (Insulin Lispro 100 Unit/Ml 3 Ml Vial) 0 unit SUBCUT QIDACHS [facility]; Protocol Last Admin: 11/01/24 11:40 Dose: Not Given Documented By: JOSE F Non-Admin Reason: No Insulin Coverage Loratadine (Loratadine 10 Mg Tablet) 10 mg PO DAILY [facility] Last Admin: 11/01/24 08:39 Dose: 10 mg Documented By: JOSE F Multivitamins/Vitamin C (Multivitamin Tablet) 1 tab PO DAILY [facility] Last Admin: 11/01/24 08:39 Dose: 1 tab Documented By: JOSE F Non-Formulary Medication (Cholecalciferol (Vitamin D3)) 1,250 mcg PO PISANO [facility] Pantoprazole Sodium (Pantoprazole Sodium 40 Mg/10 Ml Vial) 40 mg IVPUSH BID [facility] Last Admin: 11/01/24 08:39 Dose: 40 mg Documented By: JOSE F Sodium Bicarbonate (Sodium Bicarbonate 650 Mg Tablet) 650 mg PO BID [facility] Last Admin: 11/01/24 08:39 Dose: 650 mg Documented By: JOSE F Sodium Chloride (0.9 % Sodium Chloride Flush 3 Ml Syringe) 3 ml IVFLUSH QSHIFT [facility] Last Admin: 11/01/24 08:43 Dose: 3 ml Documented By: JOSE F Sodium Zirconium Cyclosilicate (Sodium Zirconium Cyclosilicate 5 Gm Powd.Pack) 5 gm PO DAILY [facility] Last Admin: 11/01/24 11:00 Dose: 5 gm Documented By: JOSE F Venlafaxine HCl (Venlafaxine Hcl Er 37.5 Mg Cap.Er.24h) 37.5 mg PO DAILY [facility] Last Admin: 11/01/24 08:39 Dose: 37.5 mg Documented By: JOSE F Venlafaxine HCl (Venlafaxine Hcl Er 75 Mg Cap.Er.24h) 75 mg PO DAILY [facility] Last Admin: 11/01/24 08:39 Dose: 75 mg Documented By: JOSE F Labs 11/01/24 07:28 11/01/24 07:28 Labs: Laboratory Results - last 24 hr 10/31/24 10/31/24 10/31/24 06:00 14:30 14:31 Anion Gap Estim Creat Clear Calc Estimated GFR POC Glucose Random Glucose Calcium Iron 32 TIBC 134 L % Saturation 24 Unsat Iron Binding 102 Ferritin 2552 H Vitamin B12 566 Folate 15.8 Hold Red Top See Note 10/31/24 10/31/24 11/01/24 16:23 20:26 05:50 Anion Gap Estim Creat Clear Calc Estimated GFR POC Glucose 138 H 145 H 46 L* Random Glucose Calcium Iron TIBC % Saturation Unsat Iron Binding Ferritin Vitamin B12 Folate Hold Red Top 11/01/24 11/01/24 11/01/24 06:12 07:01 07:28 Anion Gap 15 Estim Creat Clear Calc 13.4 Estimated GFR 9 POC Glucose 75 121 H Random Glucose 120 H Calcium 8.1 L Iron TIBC % Saturation Unsat Iron Binding Ferritin Vitamin B12 Folate Hold Red Top 11/01/24 11:25 Anion Gap Estim Creat Clear Calc Estimated GFR POC Glucose 137 H Random Glucose Calcium Iron TIBC % Saturation Unsat Iron Binding Ferritin Vitamin B12 Folate Hold Red Top Assessment and Plan (1) Acute exacerbation of CHF (congestive heart failure): Status: Acute Assessment and Plan: 69-year-old female with a PMH significant for?paroxysmal AFib on Eliquis, HFpEF, CKD 4 with recent left fistula placed but not yet on HD, interstitial lung disease chronically on 2L home O2, HTN, HTN, and insulin-dependent type 2 diabetes who presents to the ED with?increased shortness a breath and LIM since this morning. Pt will be admitted to the hospital for treatment and further evaluation of multiple issues, including acute chronic hypoxic failure in the setting of CHF exacerbation, acute hyperkalemia, and acute on chronic anemia. Acute on chronic hypoxic respiratory failure in the setting of acute CHF exacerbation SOB somewhat improving, O2 requirements, CXR showing interstitial edema, elevated BNP above baseline trops thought to be related to demand. plan: Monitor on telemetry i/o negative 870 ml. patient says her sob somewhat improving and also producing good urine after lasix but not documented. continue Lasix 40 mg IV b.i.d.,Echocardiogram Monitor I/O, daily weights, lytes,Low-salt diet d/w staff an patient in detail-we need close monitering of i/o. if does not improves further might need Hd. possible ckd5:Acute hyperkalemia improved with loklema has left fistula with Dr. Julien on 10/19/24, not yet on HD added sodium bicarb due to low bicarb. Nephrology consult- moniter renal function and electrolytes closely AV fistula area ? mild cellulitis vs postop chnages given cefzolin 2gm x1 yesterday, continue cefzolin 1 gm q12h blood culture pending Acute on chronic normocytic anemia h/h : 8.1/26.7 type and screen done hb/hct somewhat decreasing ? realted aocd ( workup done on 08/13 -please refer to hematology note). missed her last 2 Procrit injections, denies active bleeding, no hematochezia, hematemesis, melena. as per jul note Dr Dunne oncology:workup She had an upper endoscopy and colonoscopy in July which were benign. 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 moniter h/h . HTN Continue carvedilol, hydralazine HLD Continue statin Insulin-dependent type 2 diabetes Sliding-scale insulin, Lantus AMY CPAP at night Full Code DVT Prophylaxis: Pneumatic compression due to worsening anemia ongoing need for hospitalization for treatment of?acute on chronic hypoxic respiratory failure in the setting of acute CHF exacerbation and advanced ckd with electrolytic abnormalities- need i/o ,renal function electrolytic monitering ,oxygentapering. Quality Stroke Does the patient have a stroke diagnosis?: No VTE Prior VTE?: No VTE Risk Level:: Medical - moderate - high VTE Device Contraindication: N/A - Device Ordered VTE Drug Contraindication: Treatment Not Indicated
[2024-11-01] MEDS: ceFAZolin Sodium 1 GM VIAL IVPUSH (16:48)
[2024-11-01 16:54] LABS: Glucose, Whole Blood 139 mg/dL (60-115)
[2024-11-01 21:36] LABS: Glucose, Whole Blood 128 mg/dL (60-115)
[2024-11-01] MEDS: Atorvastatin Calcium 80 MG TABLET PO (21:43)
--- NOTE | 2024-11-01 23:19 | PM.EVENT ---
Event Note Date of Service: 11/01/24 Event Note: Chart reviewed D/w Dr. Lopez in detail Progressive ckd5: Acute hyperkalemia Resolved improved with loklema Left fistula with Dr. Julien on 10/19/24, not yet on HD- With ? cellulitis vs post OP changes Met acidosis - Mild Po Bicarb AV fistula area ? mild cellulitis vs postop chnages Cefzolin IV Blood culture pending Acute on chronic normocytic anemia h/h : 8.1/26.7= Fe stores - OK _ Epo 20 K x one dose Hopefully we can wait until AVF matures to star HD If discharged f/u in our office Thx Please call if u have questions Time Spent With Patient Time: Total time managing care of this patient today ____ minutes.
[2024-11-02] VITALS (9 sets, daily range): BP systolic 120–150; BP diastolic 58–70; PULSE 64–97; RESP 17–18; TEMP 36.1–36.8; O2SAT 94–99
--- NOTE | 2024-11-02 00:57 | PC.NURSE ---
Patient in a-fib with h.r from 80-105 bpm
[2024-11-02] MEDS: ceFAZolin Sodium 1 GM VIAL IVPUSH ×2 (02:56→15:31)
--- NOTE | 2024-11-02 07:00 | CA_ITS ---
Transthoracic Echocardiogram Patient (Last, First, Middle): Amaris Hook E Gender: Female Date of : 1955 Age: 69 Procedure Date: 11/02/2024 Procedure Type: Transthoracic Echocardiogram Location: [facility] [place] Height: 157. cm Weight: 114.31 kg BSA: 2.10 m2 Heart Rate: 106 bpm BP: 139 / 58 mmHg Welfare Administrator: PETR Referring MD: Jason Hernandez MD Symptoms: Acute CHF Study Quality: Adequate ECG Rhythm: Atrial Fibrillation Conclusions: - Normal left ventricular cavity size. There is severely increased left ventricular wall thickness. The left ventricular systolic function is low normal. The visually estimated ejection fraction is between 50-55%. - The basal inferior segment is hypokinetic. - Normal right ventricular cavity size. There is mildly decreased right ventricular systolic function. Findings Left Ventricle Normal left ventricular cavity size. There is severely increased left ventricular wall thickness. The left ventricular systolic function is low normal. The visually estimated ejection fraction is between 50-55%. There is evidence of regional wall motion abnormalities. Diastolic function is indeterminate on the basis of available data. Wall Motion Rest Echo Findings The basal inferior segment is hypokinetic. Right Ventricle Normal right ventricular cavity size. There is mildly decreased right ventricular systolic function. Atria The left atrium is mildly dilated. The right atrium is normal in size. Aortic Valve There is a normal trileaflet aortic valve. There is mild calcification of the aortic valve. There is mild aortic valve stenosis. There is no aortic valve regurgitation. Mitral Valve The mitral valve appears normal. There is mild mitral valve regurgitation. There is no mitral valve stenosis. Pulmonic Valve The pulmonic valve is likely normal. Tricuspid Valve Normal tricuspid valve structure. Normal right atrial pressure. There is no evidence of pulmonary hypertension. Great Vessels All visible segments of the aorta are normal in size. The visualized portions of the pulmonary artery and branches are normal. Venous The inferior vena cava is normal in size and collapses greater than 50% with inspiration. Pericardium/Pleural There is no evidence of pericardial effusion. Prior Study Comparison Changes noted compared to prior study dated: 06/15/2024. Mild RV dysfunction. Basal inferior hypokinesis in some views. Measurements 2D Linear Measurements IVSd: 1.48 0.6-0.9/0.6-1.0 cm LVIDd: 4.54 3.9-5.3/4.2-5.9 cm LVIDd Index: 2.16 2.4-3.2/2.2-3.1 cm/m2 LVIDs: 2.80 2.0-3.6 cm LVPWd: 1.50 0.7-1.1 cm LA Diam: 4.00 2.7-3.8/3.0-4.0 cm LAIDs Index: 1.90 1.5-2.3 cm/m2 LV Mass: 344.95 67-162/88-224 g LV Mass Index: 164.26 43-95/49-115 g/m2 LVOT Diam: 1.90 3.0+(-)1.3 cm 2D Systolic Function EF 4C: 52.50 >55% EF 2C: 49.40 >55% EF BiP: 52.10 >55% Mitral Valve MV VTI: 0.32 MV Pk Manny: 1.59 MV Mn Manny: 1.21 MV Pk Grad: 10.00 MV Mn Grad: 6.00 MV Pk E: 1.52 MV PK A: 0.86 MV Decel Time: 93.00 E/A: 1.80 E'Lateral: 8.50 E'Medial: 6.31 E/E' Med: 24.10 E/E' Lat: 17.90 PHT: 27.00 MVA PHT: 8.15 MVA Continuity: 1.59 Decel Benzie: 16.40 Aortic Valve AoV Pk Manny: 2.23 AoV Mn Manny: 1.65 AoV VTI: 0.42 AoV Pk Grad: 20.00 Aov Mn Grad: 12.00 MEIR Cont.VTI: 1.22 LVOT LVOT Pk Manny: 0.90 LVOT Mn Manny: 0.67 LVOT VTI: 0.18 LVOT Pk Grad: 3.00 LVOT Mn Grad: 2.00 LVOT Diam: 1.90 LVOT Area: 2.84 Diastolic Function MV Pk E: 1.52 MV Pk A: 0.86 E/A: 1.80 E'Medial: 6.31 E/E' Med: 24.10 E' Laterial: 8.50 E/E' Lat: 17.90 Right Ventricle TAPSE (mm): 16.50 TVS' Manny: 11.00 Tricuspid Valve TR Pk Manny: 1.64 TR Pk Grad: 11.00 RA Press: 3.00 RVSP: 14.00 Great Vessels Aorta Sinus of Valsalva: 3.30 2.0-3.5 cm Ao Asc: 3.20 2.1-3.4 cm Pulmonary Valve PV Pk Manny: 0.99 Peak PV Grad: 4.00 Updated in Other Vendor System with Status of Final Robles Mike MD electronically signed on 11/02/2024 8:39:28 PM with status of Final
[2024-11-02 07:35] LABS: Glucose, Whole Blood 88 mg/dL (60-115)
--- NOTE | 2024-11-02 08:40 | PC.NURSE ---
on monitor, pt tim gonsales.fib with HR sustaining
--- NOTE | 2024-11-02 08:40 | PC.NURSE ---
Addendum entered by Mariaelena Frazier RN 11/02/24 11:06: medicated per MAR, converted to NSR at 0947, notified Original Note: on monitor pt in a.fib with HR sustaining 130s-140s. pt asymtomatic at this time. notified
[2024-11-02] MEDS: carvediloL 25 MG TABLET PO ×2 (08:48→21:05)
[2024-11-02] MEDS: hydrALAZINE HCl 25 MG TABLET PO ×2 (08:48→21:04)
[2024-11-02 09:20] LABS: Anion Gap 16 (12-20); Blood Urea Nitrogen 68 mg/dL (9-16); Calcium 8.3 mg/dL (8.4-10.2); Carbon Dioxide 18 mmol/L (22-29); Chloride 113 mmol/L (96-108); Creatinine Clr Calc Pharmacy 13.5; Estimated Glomerular Filt Rate 9; Glucose Random 106 mg/dL (60-115); Potassium 4.7 mmol/L (3.3-5.1); Sodium 142 mmol/L (135-145)
[2024-11-02] MEDS: Multivitamin TABLET 1 TAB PO (09:35)
[2024-11-02] MEDS: Sodium Bicarbonate 650 MG TABLET PO ×3 (09:35→21:04)
[2024-11-02] MEDS: Venlafaxine HCl ER 37.5 MG CAP.ER.24H PO (09:36)
[2024-11-02] MEDS: Ascorbic Acid 500 MG TABLET PO (09:36)
[2024-11-02] MEDS: Apixaban 5 MG TABLET PO ×2 (09:36→21:05)
[2024-11-02] MEDS: Loratadine 10 MG TABLET PO (09:36)
[2024-11-02] MEDS: Venlafaxine HCl ER 75 MG CAP.ER.24H PO (09:36)
[2024-11-02] MEDS: Pantoprazole Sodium 40 MG/10 ML VIAL IVPUSH ×2 (09:36→21:08)
[2024-11-02] MEDS: Insulin Glargine,Hum.rec.anlog 100 UNIT/ML 10 ML VIAL 38 UNIT SUBCUT (09:36)
[2024-11-02] MEDS: 0.9 % Sodium Chloride Flush 3 ML SYRINGE IVFLUSH ×3 (09:41→21:08)
[2024-11-02] MEDS: Metoprolol Tartrate 5 MG/5 ML VIAL 2.5 MG IVPUSH (09:46)
[2024-11-02] MEDS: Furosemide 40 MG TABLET PO ×2 (11:03→18:30)
[2024-11-02 11:27] LABS: Glucose, Whole Blood 138 mg/dL (60-115)
--- NOTE | 2024-11-02 12:15 | ECG_ITS ---
Test Reason : converted into sinus Blood Pressure : */* mmHG Vent. Rate : 68 BPM Atrial Rate : 68 BPM P-R Int : 178 ms QRS Dur : 98 ms QT Int : 432 ms P-R-T Axes : 10 18 71 degrees QTcB Int : 459 ms Normal sinus rhythm Normal ECG When compared with ECG of 30-Oct-2024 16:31, No significant change was found Referred By: Facundo Lopez Electronically Signed By: Robles Mike
--- NOTE | 2024-11-02 12:24 | P.CONCA_ITS ---
History of Present Illness History of Present Illness Date of Service: 11/02/24 Requesting physician: Facundo Lopez Chief complaint: Acute CHF Narrative: [age] year female who we have been asked to see for shortness of breath and heart failure. She has known history of advanced chronic kidney disease and had a fistula placed in the left arm. She is being followed by Nephrology closely. She has background of paroxysmal atrial fibrillation and heart failure with preserved ejection fraction. Presenting with shortness of breath and lower extremity edema. She was given IV diuretics and has been feeling better since then. Blood pressure is well controlled. She is laying flat in bed and saying that she has improved significantly. No chest discomfort or any other concerning symptoms. [facility] Past Medical History Medical History Heartburn On anticoagulant therapy Interstitial lung disease Respiratory failure with hypoxia Cough Exercise hypoxemia MRSA carrier CAP (community acquired pneumonia) Morbid (severe) obesity due to excess calories Heme positive stool Atrial flutter Elevated serum creatinine AMY on CPAP Chronic renal failure Secondary aldosteronism Acute renal failure Nocturnal hypoxemia Morbid obesity Diabetes type 2, controlled Oxygen dependent HTN (hypertension) Morbid obesity due to excess calories AMY (obstructive sleep apnea) Pneumonia Obesity Elevated creatine kinase Anemia Congestive heart failure High cholesterol Diabetes type 2, uncontrolled Hypertension, essential Family History Family History Father Stroke Mother Stroke Hypertension Diabetes Maternal Grandmother Diabetes Hypertension Stroke Sister Diabetes Breast cancer Son Bipolar 1 disorder Overweight Other Mental health problem Substance abuse Surgical History Surgical History H/O colonoscopy History of surgery History of D&C Social History Social History Household Members: Family Housing: House Are you a primary neonatal intensive care nurse to a significant other at home: No Do you presently have visiting nurse or other home services: No Unable to assess alcohol history related to: Unable to respond Alcohol intake: current Alcohol intake frequency: does not drink Comment: pt was medicated Patient Tobacco Use Status: Former Tobacco user e-Cigarette/Vaping Use: Never Used Second Hand Smoke Exposure: No Advance Directives Date on File: 06/09/21 service: No Current occupational status: retired Cognitive needs: No Hearing needs: No Vision needs: Yes Meds Allergies Allergy/AdvReac Type Severity Reaction Status Date / Time penicillin V Allergy Severe joint Verified 10/30/24 16:11 swelling and rash amlodipine [From [facility]] AdvReac Intermediate edema Verified 10/30/24 16:11 Active Medications: Current Medications Acetaminophen (Acetaminophen 325 Mg Tablet) 975 mg PO Q6H PRN PRN Reason: Pain, Mild 1-3,fever,headache Apixaban (Apixaban 5 Mg Tablet) 5 mg PO BID [facility] Last Admin: 11/02/24 09:36 Dose: 5 mg Ascorbic Acid (Ascorbic Acid 500 Mg Tablet) 500 mg PO DAILY [facility] Last Admin: 11/02/24 09:36 Dose: 500 mg Atorvastatin Calcium (Atorvastatin Calcium 80 Mg Tablet) 80 mg PO BEDTIME [facility] Last Admin: 11/01/24 21:43 Dose: 80 mg Carvedilol (Carvedilol 25 Mg Tablet) 25 mg PO BID [facility]; Protocol Last Admin: 11/02/24 08:48 Dose: 25 mg Cefazolin Sodium (Cefazolin Sodium 1 Gm Vial) 1 gm IVPUSH Q12H [facility] Last Admin: 11/02/24 02:56 Dose: 1 gm Furosemide (Furosemide 40 Mg/4 Ml Vial) 40 mg IVPUSH DAILY [facility]; Protocol Glucose (Glucose Gel 15 Gm Gel..Gram.) 15 gm PO Q15M PRN; Protocol PRN Reason: per Hypoglycemia Standing Ord. Hydralazine HCl (Hydralazine Hcl 25 Mg Tablet) 25 mg PO BID [facility]; Protocol Last Admin: 11/02/24 08:48 Dose: 25 mg Dextrose (D10) 250 mls @ 750 mls/hr IV Q15M PRN; Protocol PRN Reason: per Hypoglycemia Standing Ord. Insulin Glargine (Insulin Glargine,Hum.Rec.Anlog 100 Unit/Ml 10 Ml Vial) 38 unit SUBCUT BID [facility] Last Admin: 11/02/24 09:36 Dose: 38 unit Insulin Human Lispro (Insulin Lispro 100 Unit/Ml 3 Ml Vial) 0 unit SUBCUT QIDACHS [facility]; Protocol Last Admin: 11/02/24 07:42 Dose: Not Given Loratadine (Loratadine 10 Mg Tablet) 10 mg PO DAILY [facility] Last Admin: 11/02/24 09:36 Dose: 10 mg Multivitamins/Vitamin C (Multivitamin Tablet) 1 tab PO DAILY [facility] Last Admin: 11/02/24 09:35 Dose: 1 tab Pantoprazole Sodium (Pantoprazole Sodium 40 Mg/10 Ml Vial) 40 mg IVPUSH BID [facility] Last Admin: 11/02/24 09:36 Dose: 40 mg Sodium Bicarbonate (Sodium Bicarbonate 650 Mg Tablet) 650 mg PO TID [facility] Sodium Chloride (0.9 % Sodium Chloride Flush 3 Ml Syringe) 3 ml IVFLUSH QSHIFT [facility] Last Admin: 11/02/24 09:41 Dose: 3 ml Sodium Zirconium Cyclosilicate (Sodium Zirconium Cyclosilicate 5 Gm Powd.Pack) 5 gm PO DAILY [facility] Last Admin: 11/02/24 09:37 Dose: Not Given Venlafaxine HCl (Venlafaxine Hcl Er 37.5 Mg Cap.Er.24h) 37.5 mg PO DAILY [facility] Last Admin: 11/02/24 09:36 Dose: 37.5 mg Venlafaxine HCl (Venlafaxine Hcl Er 75 Mg Cap.Er.24h) 75 mg PO DAILY [facility] Last Admin: 11/02/24 09:36 Dose: 75 mg Home Medications ?Medication ?Instructions ?Recorded ?Confirmed ?Last Taken ?Type ascorbic acid (vitamin C) 500 mg 500 mg PO DAILY 09/22/20 10/30/24 10/30/24 History tablet fexofenadine 180 mg tablet 180 mg PO DAILY 09/22/20 10/30/24 10/30/24 History multivitamin 1 tab PO DAILY 09/12/22 10/30/24 10/30/24 History epoetin waqar 2,000 unit/mL 3,000 unit subcut Q2W 08/17/24 10/30/24 1 Month Ago History injection solution (Procrit) ~09/29/24 carvedilol 25 mg tablet 25 mg PO BID 10/30/24 10/30/24 10/30/24 History cholecalciferol (vitamin D3) 1,250 1,250 mcg PO PISANO 10/30/24 10/30/24 10/25/24 History mcg (50,000 unit) capsule tirzepatide 2.5 mg/0.5 mL 2.5 mg subcut MO 10/30/24 10/30/24 10/26/24 History subcutaneous pen injector (Pako) Physical Exam 2 Vital Signs: Vital Signs: Last Vital Signs Temp 97.6 F 11/02/24 11:41 Pulse 64 11/02/24 11:41 Resp 18 11/02/24 11:41 BP 125/58 L 11/02/24 11:41 Pulse Ox 97 11/02/24 11:41 O2 Del Method Nasal Cannula 11/02/24 11:41 O2 Flow Rate 2 11/02/24 11:41 Oxygen Flow Rate 2 10/30/24 16:08 BMI result Body Mass Index 46.1 GENERAL APPEARANCE: in no acute distress, pleasant. On supplemental oxygen. NECK: no carotid bruit, no jugular venous distention. SKIN: no suspicious lesions, warm and dry. HEART: no murmurs, regular rate and rhythm. LUNGS: clear to auscultation bilaterally. ABDOMEN: soft, nontender. EXTREMITIES: Mild edema. PERIPHERAL PULSES: equal. NEUROLOGIC: No gross deficits, AAO X 3 Objective Labs and Meds 11/01/24 07:28 11/02/24 08:29 Lab results: Laboratory Results - last 24 hr 11/01/24 11/01/24 11/02/24 16:31 21:15 07:20 Hold Purple Top Sodium Potassium Chloride Carbon Dioxide Anion Gap BUN Creatinine Estim Creat Clear Calc Estimated GFR POC Glucose 139 H 128 H 88 Random Glucose Calcium 11/02/24 11/02/24 11/02/24 08:29 08:52 11:05 Hold Purple Top SEE NOTE Sodium 142 Potassium 4.7 Chloride 113 H Carbon Dioxide 18 L Anion Gap 16 BUN 68 H Creatinine 4.63 H* Estim Creat Clear Calc 13.5 Estimated GFR 9 POC Glucose 138 H Random Glucose 106 Calcium 8.3 L Assessment and Plan (1) Acute exacerbation of CHF (congestive heart failure): Status: Acute Plan [age] year female with acute on chronic congestive heart failure on background of advanced chronic kidney disease. She has been diuresed and is improving. I think she can be transitioned to oral diuretics. Would favor giving her 80 of Lasix in the morning and 40 in the afternoon. She was previously taking 40 mg p.o. b.i.d. Lasix. Blood pressure is well controlled. She has advanced CKD and had a fistula placed. Eventually she will be on dialysis but Nephrology is following her closely and currently there is no urgent indication. On anticoagulation for paroxysmal atrial fibrillation. Currently in sinus rhythm. We will continue to monitor on telemetry. Thank you for allowing me to participate in the care of your patient. Please feel free to contact me if you have any questions. Procedures Date of Service Date of Service: 11/02/24
--- NOTE | 2024-11-02 14:35 | P.PNIM_ITS ---
Subjective Subjective Date of Service: 11/02/24 Interval History: likely ckd 5 , chf , av fistula erythema afib with rvr Review of Systems sob somewhat improving, no chest pain denies any gross bleeding or melena Physical Exam 2 Vital Signs: Vital Signs: Last Vital Signs Temp 97.6 F 11/02/24 11:41 Pulse 64 11/02/24 11:41 Resp 18 11/02/24 11:41 BP 125/58 L 11/02/24 11:41 Pulse Ox 97 11/02/24 11:41 O2 Del Method Nasal Cannula 11/02/24 11:41 O2 Flow Rate 2 11/02/24 11:41 Oxygen Flow Rate 2 10/30/24 16:08 BMI result Body Mass Index 46.1 Appearance: Alert.? Oriented X3.? cvs: rrr, [id number] . res: air entry seems improving , has few rales sacttered at bases. abd: no rebound or guarding ,nt, bs present. ext pulses present , no cyanosis .edema mostly nonpittin neuro: axo3 , moves all ext. Objective Data Active Medications Acetaminophen (Acetaminophen 325 Mg Tablet) 975 mg PO Q6H PRN PRN Reason: Pain, Mild 1-3,fever,headache Apixaban (Apixaban 5 Mg Tablet) 5 mg PO BID [facility] Last Admin: 11/02/24 09:36 Dose: 5 mg Documented By: CARRIE Ascorbic Acid (Ascorbic Acid 500 Mg Tablet) 500 mg PO DAILY [facility] Last Admin: 11/02/24 09:36 Dose: 500 mg Documented By: CARRIE Atorvastatin Calcium (Atorvastatin Calcium 80 Mg Tablet) 80 mg PO BEDTIME [facility] Last Admin: 11/01/24 21:43 Dose: 80 mg Documented By: RAMYA Carvedilol (Carvedilol 25 Mg Tablet) 25 mg PO BID [facility]; Protocol Last Admin: 11/02/24 08:48 Dose: 25 mg Documented By: CARRIE Cefazolin Sodium (Cefazolin Sodium 1 Gm Vial) 1 gm IVPUSH Q12H [facility] Last Admin: 11/02/24 02:56 Dose: 1 gm Documented By: MAKEDA Furosemide (Furosemide 40 Mg Tablet) 40 mg PO BID@0900,1800 [facility]; Protocol Glucose (Glucose Gel 15 Gm Gel..Gram.) 15 gm PO Q15M PRN; Protocol PRN Reason: per Hypoglycemia Standing Ord. Hydralazine HCl (Hydralazine Hcl 25 Mg Tablet) 25 mg PO BID [facility]; Protocol Last Admin: 11/02/24 08:48 Dose: 25 mg Documented By: CARRIE Dextrose (D10) 250 mls @ 750 mls/hr IV Q15M PRN; Protocol PRN Reason: per Hypoglycemia Standing Ord. Insulin Glargine (Insulin Glargine,Hum.Rec.Anlog 100 Unit/Ml 10 Ml Vial) 38 unit SUBCUT BID [facility] Last Admin: 11/02/24 09:36 Dose: 38 unit Documented By: CARRIE Insulin Human Lispro (Insulin Lispro 100 Unit/Ml 3 Ml Vial) 0 unit SUBCUT QIDACHS [facility]; Protocol Last Admin: 11/02/24 12:46 Dose: Not Given Documented By: CARRIE Non-Admin Reason: No Insulin Coverage Loratadine (Loratadine 10 Mg Tablet) 10 mg PO DAILY [facility] Last Admin: 11/02/24 09:36 Dose: 10 mg Documented By: CARRIE Multivitamins/Vitamin C (Multivitamin Tablet) 1 tab PO DAILY [facility] Last Admin: 11/02/24 09:35 Dose: 1 tab Documented By: CARRIE Pantoprazole Sodium (Pantoprazole Sodium 40 Mg/10 Ml Vial) 40 mg IVPUSH BID [facility] Last Admin: 11/02/24 09:36 Dose: 40 mg Documented By: CARRIE Sodium Bicarbonate (Sodium Bicarbonate 650 Mg Tablet) 650 mg PO TID [facility] Sodium Chloride (0.9 % Sodium Chloride Flush 3 Ml Syringe) 3 ml IVFLUSH QSHIFT [facility] Last Admin: 11/02/24 09:41 Dose: 3 ml Documented By: CARRIE Sodium Zirconium Cyclosilicate (Sodium Zirconium Cyclosilicate 5 Gm Powd.Pack) 5 gm PO DAILY [facility] Last Admin: 11/02/24 09:37 Dose: Not Given Documented By: CARRIE Non-Admin Reason: Physician Held Med Venlafaxine HCl (Venlafaxine Hcl Er 37.5 Mg Cap.Er.24h) 37.5 mg PO DAILY [facility] Last Admin: 11/02/24 09:36 Dose: 37.5 mg Documented By: HO.RICCIAV Venlafaxine HCl (Venlafaxine Hcl Er 75 Mg Cap.Er.24h) 75 mg PO DAILY [facility] Last Admin: 11/02/24 09:36 Dose: 75 mg Documented By: CARRIE Labs 11/01/24 07:28 11/02/24 08:29 Labs: Laboratory Results - last 24 hr 11/01/24 11/01/24 11/02/24 16:31 21:15 07:20 Hold Purple Top Anion Gap Estim Creat Clear Calc Estimated GFR POC Glucose 139 H 128 H 88 Random Glucose Calcium 11/02/24 11/02/24 11/02/24 08:29 08:52 11:05 Hold Purple Top SEE NOTE Anion Gap 16 Estim Creat Clear Calc 13.5 Estimated GFR 9 POC Glucose 138 H Random Glucose 106 Calcium 8.3 L Microbiology Microbiology Results: Microbiology 10/31/24 13:59 Blood Culture - Preliminary Blood - Venous No growth after 24 hours. 10/31/24 14:04 Blood Culture - Preliminary Blood - Venous No growth after 24 hours. Assessment and Plan (1) Acute exacerbation of CHF (congestive heart failure): Status: Acute Assessment and Plan: 69-year-old female with a PMH significant for?paroxysmal AFib on Eliquis, HFpEF, CKD 4 with recent left fistula placed but not yet on HD, interstitial lung disease chronically on 2L home O2, HTN, HTN, and insulin-dependent type 2 diabetes who presents to the ED with?increased shortness a breath and LIM since this morning. Pt will be admitted to the hospital for treatment and further evaluation of multiple issues, including acute chronic hypoxic failure in the setting of CHF exacerbation, acute hyperkalemia, and acute on chronic anemia. Acute on chronic hypoxic respiratory failure in the setting of acute CHF exacerbation SOB somewhat improving, O2 requirements, CXR showing interstitial edema, elevated BNP above baseline trops thought to be related to demand. echo: 1. Low normal LV ejection fraction of 50-55% with grade 2 diastolic dysfunction 2. Mildly dilated left atrium 3. Mild aortic stenosis 4. Mildly dilated ascending aorta at 3.8 cm plan: Monitor on telemetry i/o negative 1.8 patient says her sob somewhat improving and also producing good urine after lasix but not documented. Monitor I/O, daily weights, lytes,Low-salt diet d/w staff an patient in detail-we need close monitering of i/o. d/w cardio/nephro -start on po lasix and moniter today possible ckd5:Acute hyperkalemia improved with loklema has left fistula with Dr. Julien on 10/19/24, not yet on HD added sodium bicarb due to low bicarb. Nephrology consult- moniter renal function and electrolytes closely AV fistula area ? mild cellulitis vs postop chnages given cefzolin 2gm x1 yesterday, continue cefzolin 1 gm q12h blood culture negative @24hrs Acute on chronic normocytic anemia h/h : 8.1/26.7 type and screen done hb/hct somewhat decreasing ? realted aocd ( workup done on 08/13 -please refer to hematology note). missed her last 2 Procrit injections, denies active bleeding, no hematochezia, hematemesis, melena. as per jul note Dr Dunne oncology:workup She had an upper endoscopy and colonoscopy in July which were benign. 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 moniter h/h . HTN Continue carvedilol, hydralazine HLD Continue statin Insulin-dependent type 2 diabetes Sliding-scale insulin, Lantus AMY CPAP at night Full Code DVT Prophylaxis: Pneumatic compression due to worsening anemia ongoing need for hospitalization for treatment of?acute on chronic hypoxic respiratory failure in the setting of acute CHF exacerbation and advanced ckd with electrolytic abnormalities- need i/o ,renal function electrolytic monitering ,oxygentapering. Quality Stroke Does the patient have a stroke diagnosis?: No VTE Prior VTE?: No VTE Risk Level:: Medical - moderate - high VTE Device Contraindication: N/A - Device Ordered VTE Drug Contraindication: Treatment Not Indicated
--- NOTE | 2024-11-02 14:42 | MHC.CM.PN ---
Per rounds and EMR review, pt requires ongoing treatment of acute hypoxic respiratory failure and CHF excerbation. CM to follow for DC needs.
--- NOTE | 2024-11-02 16:06 | PC.NURSE ---
Sodium bicarbonate 650 mg was administered orally at 1552 per orders. Education was provided to patient regarding the sodium bicarbonate including that the sodium bicarbonate was ordered to replace her bicarbonate and that side effects of this medication include nausea, bloating, and gas. Patient verbalized understanding and denied having any questions. Izabel Self, MSN, RN, [facility] Dance Choreographer
[2024-11-02 16:25] LABS: Glucose, Whole Blood 170 mg/dL (60-115)
[2024-11-02] MEDS: Insulin Lispro 100 UNIT/ML 3 ML VIAL SUBCUT ×2 (17:04→21:05)
[2024-11-02 20:47] LABS: Glucose, Whole Blood 155 mg/dL (60-115)
[2024-11-02] MEDS: Atorvastatin Calcium 80 MG TABLET PO (21:04)
[2024-11-03 03:30] VITALS: BP 138/62; PULSE 75; RESP 20; TEMP 36.3; O2SAT 95
[2024-11-03] MEDS: ceFAZolin Sodium 1 GM VIAL IVPUSH (03:44)
[2024-11-03 07:36] LABS: Glucose, Whole Blood 71 mg/dL (60-115)
[2024-11-03 08:00] VITALS: BP 140/58; PULSE 71; RESP 18; TEMP 36.2; O2SAT 96
[2024-11-03 08:15] LABS: Glucose, Whole Blood 97 mg/dL (60-115)
[2024-11-03] MEDS: Sodium Bicarbonate 650 MG TABLET PO (08:43)
[2024-11-03] MEDS: Apixaban 5 MG TABLET PO (08:43)
[2024-11-03] MEDS: Ascorbic Acid 500 MG TABLET PO (08:43)
[2024-11-03] MEDS: hydrALAZINE HCl 25 MG TABLET PO (08:43)
[2024-11-03] MEDS: Venlafaxine HCl ER 37.5 MG CAP.ER.24H PO (08:43)
[2024-11-03] MEDS: Loratadine 10 MG TABLET PO (08:43)
[2024-11-03] MEDS: Venlafaxine HCl ER 75 MG CAP.ER.24H PO (08:43)
[2024-11-03] MEDS: Furosemide 40 MG TABLET PO (08:44)
[2024-11-03] MEDS: 0.9 % Sodium Chloride Flush 3 ML SYRINGE IVFLUSH (08:44)
[2024-11-03] MEDS: carvediloL 25 MG TABLET PO (08:44)
[2024-11-03] MEDS: Multivitamin TABLET 1 TAB PO (08:44)
[2024-11-03] MEDS: Pantoprazole Sodium 40 MG/10 ML VIAL IVPUSH (08:44)
[2024-11-03 10:16] LABS: Anion Gap 14 (12-20); Blood Urea Nitrogen 71 mg/dL (9-16); Calcium 7.9 mg/dL (8.4-10.2); Carbon Dioxide 21 mmol/L (22-29); Chloride 111 mmol/L (96-108); Creatinine Clr Calc Pharmacy 13.3; Estimated Glomerular Filt Rate 9; Glucose Random 132 mg/dL (60-115); Potassium 5.1 mmol/L (3.3-5.1); Sodium 141 mmol/L (135-145)
[2024-11-03 11:34] LABS: Glucose, Whole Blood 122 mg/dL (60-115)
[2024-11-03 11:35] VITALS: BP 142/58; PULSE 68; O2SAT 95
[2024-11-03 11:45] VITALS: BP 142/58; PULSE 68; RESP 20; TEMP 36.3; O2SAT 95
[2024-11-03] MEDS: cefuroxime axetiL 250 MG TABLET PO (12:15)
--- NOTE | 2024-11-03 13:25 | P.DS_ITS ---
DS: Providers Provider Date of Service: 11/03/24 Date of admission: 10/30/24 20:44 Date of discharge: 11/03/24 Primary care physician: Sadi Harden MD Consults: 10/30/24 21:28 Consult to Nephrology Routine Consulting Provider: [facility] Reason for consultation: CKD, hyperkalemia Has provider been notified: No 11/02/24 09:43 Consult to Cardiology Routine Consulting Provider: [facility] Reason for consultation: Palpitations , a fib rvr , Chf Has provider been notified: No Attending physician on discharge: Facundo Lopez Discharging clinician: Facundo Lopez DS: Diagnosis Discharge Diagnosis (1) Acute exacerbation of CHF (congestive heart failure): Status: Acute DS: Summary Hospital Course Hospital Course: HPI:69-year-old female with a PMH significant for?paroxysmal AFib on Eliquis, HFpEF, CKD 4 with recent left fistula placed but not yet on HD, interstitial lung disease chronically on 2L home O2, HTN, HTN, and insulin-dependent type 2 diabetes who presents to the ED with?increased shortness a breath and LIM since this morning. Pt reports symptoms began earlier in the morning when she was getting ready for an appointment and became out of breath while dressing. Pt had to stop and rest before continuing. Pt continued to get out of breath with minimal exertion, eventually having to increase home O2 which offered some relief. EMS report when they arrived she was satting at 94% on 6L. Pt also complains of new nonproductive cough the past few days. Denies orthopnea or increased use of pillows. Had some increased lower leg edema especially left leg 2 days ago, but none today. Denies fever, chills, nausea, vomiting, abdominal pain. No chest pain/pressure, palpitations. Of note, pt reports she is supposed to be taking Lokelma 3 times a week, however can not tolerate the taste and has not been taking any Lokelma for the past few months. Pt also reports has missed her last 2 Procrit injections. Denies hemoptysis, hematemesis, hematochezia, melena, or any other acute bleeding. In the ED pt was hypertensive up to 173/86. Labs were significant for leukocytosis of 13.4, H&H 8.3/28.1, potassium 5.6, chloride 115, BUN 68, creatinine 4.75, alk-phos 123, initial troponin 16.2 with repeat flat at 21.5, BNP elevated at 946, and albumin 3.0. Tested negative for RSV, COVID, flu. CXR showed cardiomegaly and likely interstitial edema superimposed upon chronic interstitial lung disease. EKG demonstrated normal sinus rhythm without signi ficant ST elevations or depressions, similar to previous. Pt was treated with Lokelma and Lasix IV 40 mg. Pt will be admitted to the hospital for treatment and further evaluation of multiple issues, including acute chronic hypoxic failure in the setting of CHF exacerbation, acute hyperkalemia, and acute on chronic anemia. Hospital course: Patient was admitted to the hospital becauseAcute on chronic hypoxic respiratory failure in the setting of acute CHF exacerbation: Chest x-ray shows interstitial edema, patient has almost stage 5 kidney disease, has new AV fistula: Patient is started on IV diuretics-responded well, shortness of breath improved also oxygen demand also came to the baseline now. Echo: EF is 50-55%. Patient management discussed with nephrology and cardiology recommended to adjust Lasix, added extra Lasix 40 mg daily. Patient has mild hyperkalemia which is resolved with Lokelma. Recommended low- potassium diet. Also bicarb borderline added bicarb supplements. Patient had mild superficial cellulitis versus postop AV fistula skin changes: AV fistula bruits good, given IV cefazolin, blood cultures sent- erythema seems to be improved significantly, blood culture negative. Patient will be going home with p.o. Ceftin 250 mg b.i.d. for 5 more days. plan: Added Lasix 40 mg extra to her home regimen . CHF education given-if gains weight 2 lb or more or significant leg edema or new respiratory symptoms go to the nearest emergency room . Patient is to follow-up BMP and Nephrology as well as Cardiology outpatient. PT recommended home PT but patient declined for VNA and PT. Above management discussed with the patient detail length she understand in agreement with the above plan, time spent 40 minute. Time Attestation Total time managing care of this patient today: 40 mintues. Discharge Coordination Time (in mins): 40 min Quality: Safe Use of Opioids Does Pt have an Active Cancer Diagnosis on the Problem List?: No Quality: Stroke Does the patient have a stroke diagnosis?: No Physical Exam Vital Signs: Vital Signs: Last Vital Signs Temp 97.4 F 11/03/24 11:45 Pulse 68 11/03/24 11:45 Resp 20 11/03/24 11:45 BP 142/58 H 11/03/24 11:45 Pulse Ox 95 11/03/24 11:45 O2 Del Method Nasal Cannula 11/03/24 11:45 O2 Flow Rate 2 11/03/24 11:45 Oxygen Flow Rate 2 10/30/24 16:08 BMI result Body Mass Index 46.1 Appearance: Alert.? Oriented X3.? cvs: rrr, [id number] . res: air entry seems improving , has few rales sacttered at bases. abd: no rebound or guarding ,nt, bs present. ext pulses present , no cyanosis .edema mostly nonpittin neuro: axo3 , moves all ext. DS: Data Data Completed and Pending Completed studies during hospitalization [Text1]: Procedures Control Bleeding in Gastrointestinal Tract, Via Natural or Artificial Opening Endoscopic (08/01/23) Excision of Ascending Colon, Via Natural or Artificial Opening Endoscopic, Diagnostic (08/01/23) Excision of Duodenum, Via Natural or Artificial Opening Endoscopic, Diagnostic (08/01/23) Excision of Rectum, Via Natural or Artificial Opening Endoscopic, Diagnostic (08/01/23) Excision of Stomach, Pylorus, Via Natural or Artificial Opening Endoscopic, Diagnostic (08/01/23) Excision of Transverse Colon, Via Natural or Artificial Opening Endoscopic, Diagnostic (08/01/23) Insertion of Infusion Device into Superior Vena Cava, Percutaneous Approach (09/12/22) Transfusion of Nonautologous Red Blood Cells into Peripheral Vein, Percutaneous Approach (08/01/23) Ultrasonography of Superior Vena Cava, Guidance (09/12/22) Labs on day of discharge: Laboratory Results - last 24 hr 11/02/24 11/02/24 11/03/24 16:10 20:34 07:14 Sodium Potassium Chloride Carbon Dioxide Anion Gap BUN Creatinine Estim Creat Clear Calc Estimated GFR POC Glucose 170 H 155 H 71 Random Glucose Calcium 11/03/24 11/03/24 11/03/24 08:12 09:07 11:25 Sodium 141 Potassium 5.1 Chloride 111 H Carbon Dioxide 21 L Anion Gap 14 BUN 71 H Creatinine 4.69 H* Estim Creat Clear Calc 13.3 Estimated GFR 9 POC Glucose 97 122 H Random Glucose 132 H Calcium 7.9 L Preliminary micro results at discharge 10/31/24 13:59 Blood Culture - Preliminary Blood - Venous No growth after 48 hours. 10/31/24 14:04 Blood Culture - Preliminary Blood - Venous No growth after 48 hours. Imaging Chest x-ray: Radiologist's impression: ITS Impressions Chest X-Ray 10/30/24 16:15 IMPRESSION: 1. Cardiomegaly. Widened vascular pedicle is most likely on the basis of AP technique and mild rotation. Ectatic vasculature is also a possibility. 2. Pulmonary findings suggestive of interstitial edema superimposed upon chronic interstitial lung disease, worst in the right lung, with relative sparing of the left apex. 3. Suggestion of tiny right effusion. Electronically signed by: Dereck Cuadra MD 10/30/2024 04:38 PM [facility] Discharge Plan Discharge Anticipated Discharge Date/Time: 11/03/24 13:12 Patient Disposition: Home Health Service Discharge Diagnosis: Acute on chronic hypoxic respiratory failure in the setting of acute CHF exacerbation Referrals: Sadi Harden MD [Primary Care Provider] - 1 Week Discharge Medications: New cefuroxime axetil 250 mg Tablet 250 mg PO Q12H Qty: 10 0RF sodium bicarbonate 650 mg Tablet 650 mg PO TID Qty: 30 0RF furosemide [Lasix] 40 mg tablet 40 mg PO DAILY Qty: 60 0RF Continued (DME) FreeStyle Robert 2 [place] Misc See Rx Instructions .Route Qty: 1 0RF Rx Instructions: As directed (DME) FreeStyle Robert 2 Sensor Kit See Rx Instructions .Route Qty: 2 5RF Rx Instructions: As directed hydralazine 10 mg tablet 10 mg PO BID Qty: 180 1RF (DME) pen needle, diabetic [BD Ultra-Fine Susana Pen Needle] 32 gauge x 5/32 needle See Rx Instructions .Route Qty: 300 1RF Rx Instructions: 1 each topically 2-3 times a day furosemide 40 mg tablet 40 mg PO BID Qty: 60 2RF Eliquis 5 mg tablet 5 mg PO BID Qty: 60 1RF Rx Instructions: INITIATE ON 08/11 atorvastatin 80 mg tablet 80 mg PO BEDTIME 90 Days Qty: 90 3RF multivitamin Tablet 1 tab PO DAILY carvedilol 25 mg tablet 25 mg PO BID Rx Instructions: must administer with a meal/food cholecalciferol (vitamin D3) 1,250 mcg (50,000 unit) capsule 1,250 mcg PO PISANO Mounjaro 2.5 mg/0.5 mL pen injector 2.5 mg subcut MO Rx Instructions: for 4 weeks fexofenadine 180 mg tablet 180 mg PO DAILY ascorbic acid (vitamin C) 500 mg tablet 500 mg PO DAILY (DME) miscellaneous medical supply [facility] [place], [place] See Rx Instructions .ROUTE .MEDSUPPLY Qty: 1 0RF Rx Instructions: Oxygen?concentrator. ?Daily?As directed. 999 days albuterol sulfate 90 mcg/actuation HFA aerosol inhaler 1 inh inhalation QID PRN (Reason: shortness of breath or wheezing) Qty: 6.7 1RF Procrit 2,000 unit/mL solution 3,000 unit subcut Q2W acarbose 25 mg tablet 25 mg PO DAILY Qty: 90 3RF Rx Instructions: with dinner Lantus Solostar U-100 Insulin 100 unit/mL (3 mL) insulin pen 38 unit subcut BID 90 Days Qty: 45 12RF insulin lispro 100 unit/mL insulin pen See Rx Instructions subcut QID 30 Days Qty: 45 11RF Rx Instructions: Sliding Scale: 150-200 Give 2 units 201-250 Give 4 units 251-300 Give 6 units 301-350 Give 8 units 351-400 Give 10 units 401-450 Give 12 units > 450 Give 14 units & call MD subcutaneously 4 times a day 15 minutes before meals; venlafaxine 75 mg capsule,extended release 24hr 75 mg PO DAILY 90 Days Qty: 90 3RF Rx Instructions: Daily Dose is 112.5mg venlafaxine [Effexor XR] 37.5 mg capsule,extended release 24hr 37.5 mg PO DAILY 90 Days Qty: 90 3RF Rx Instructions: Daily Dose is 112.5mg Discharge Orders: Discharge Order (Routine); Ordered 11/03/24 Ordered By: Facundo Lopez Diet: Advance to usual diet Activity on Discharge: As tolerated Stand Alone Forms: Patient Portal Discharge page Print Language: Mosotho Other Ambulatory Orders: Basic Metabolic Panel (Routine) Timeframe: 1 Week Facility: [facility] - Location: Laboratory Ordered By: Facundo Lopez Care Plan Goals: Patient was admitted to the hospital becauseAcute on chronic hypoxic respiratory failure in the setting of acute CHF exacerbation: Chest x-ray shows interstitial edema, patient has almost stage 5 kidney disease, has new AV fistula: Patient is started on IV diuretics-responded well, shortness of breath improved also oxygen demand also came to the baseline now. Echo: EF is 50-55%. Patient management discussed with nephrology and cardiology recommended to adjust Lasix, added extra Lasix 40 mg daily. Patient has mild hyperkalemia which is resolved with Lokelma. Recommended low- potassium diet. Also bicarb borderline added bicarb supplements. Patient had mild superficial cellulitis versus postop AV fistula skin changes: AV fistula bruits good, given IV cefazolin, blood cultures sent- erythema seems to be improved significantly, blood culture negative. Patient will be going home with p.o. Ceftin 250 mg b.i.d. for 5 more days. Health Concerns: As above. Plan of Treatment: Added Lasix 40 mg extra to her home regimen . CHF education given-if gains weight 2 lb or more or significant leg edema or new respiratory symptoms go to the nearest emergency room . Patient is to follow-up BMP and Nephrology as well as Cardiology outpatient. Assessment: As above. Patient Instructions: Heart Failure (DC), Chronic Kidney Disease (DC), Cellulitis (DC)
--- NOTE | 2024-11-03 13:59 | MHC.CM.PN ---
Second IMM given 11/03. This CM met with pt to discuss discharge plan, PT is recommending home with services, pt is adamantly against having VNA services. Pt states she lives with her family and has been working with [facility], so she is all set. Hospitalist updated. Pts daughter will transport her home today.
--- NOTE | 2024-11-03 15:46 | PM.PNCARD ---
Subjective Subjective Date of Service: 11/03/24 Interval history: Seen examined at bedside. Clinically improved with diuresis. Physical Exam Vital Signs: Last Vital Signs Temp 97.4 F 11/03/24 11:45 Pulse 68 11/03/24 11:45 Resp 20 11/03/24 11:45 BP 142/58 H 11/03/24 11:45 Pulse Ox 95 11/03/24 11:45 O2 Del Method Nasal Cannula 11/03/24 11:45 O2 Flow Rate 2 11/03/24 11:45 Oxygen Flow Rate 2 10/30/24 16:08 BMI result Body Mass Index 46.1 GENERAL APPEARANCE: in no acute distress, pleasant. On supplemental oxygen. NECK: no carotid bruit, no jugular venous distention. SKIN: no suspicious lesions, warm and dry. HEART: no murmurs, regular rate and rhythm. LUNGS: clear to auscultation bilaterally. ABDOMEN: soft, nontender. EXTREMITIES: Mild edema. PERIPHERAL PULSES: equal. NEUROLOGIC: No gross deficits, AAO X 3 Objective Labs and Meds 11/01/24 07:28 11/03/24 09:07 Lab results: Laboratory Results - last 24 hr 11/02/24 11/02/24 11/03/24 16:10 20:34 07:14 Sodium Potassium Chloride Carbon Dioxide Anion Gap BUN Creatinine Estim Creat Clear Calc Estimated GFR POC Glucose 170 H 155 H 71 Random Glucose Calcium 11/03/24 11/03/24 11/03/24 08:12 09:07 11:25 Sodium 141 Potassium 5.1 Chloride 111 H Carbon Dioxide 21 L Anion Gap 14 BUN 71 H Creatinine 4.69 H* Estim Creat Clear Calc 13.3 Estimated GFR 9 POC Glucose 97 122 H Random Glucose 132 H Calcium 7.9 L Progress Note: A&P Assessment and plan (1) Acute exacerbation of CHF (congestive heart failure): Status: Acute Plan [age] year female with chronic kidney disease and acute on chronic congestive heart failure. She was diuresed and clinically improved. She has advanced CKD with creatinine clearance of 13. Creatinine is 4.69. She was taking 40 mg p.o. b.i.d. Lasix. I think she can be increased to 80 mg in the morning and 40 in the afternoon. Blood pressure controlled otherwise is reasonable. Overall clinically stable. Mild aortic valve stenosis based on echo from 11/09/2024. Clinically stable and will be discharged home and follow up with Nephrology. She will see us back in our office in few weeks. Thank you for allowing me to participate in the care of your patient. Please feel free to contact me if you have any questions. Time Spent With Patient Time: Total time managing care of this patient today ____ minutes. Progress Note: Quality Stroke Does the patient have a stroke diagnosis?: No Procedures Date of Service Date of Service: 11/03/24
== END 2024-11-03 16:10 | disposition home health service (06) | DRG 291 ==
LOC: HO.ED 19:48 → HO.EDOVER 20:51 → HO.IMC 10-31 07:59
PROVIDERS: Nurse Practitioner Family; Admitting Provider Internal Medicine; Emergency Provider Emergency Medicine; PCP Family Medicine; Visit Provider Internal Medicine
DX: I13.2 Hypertensive heart and chronic kidney disease with heart failure and with stage 5 chronic kidney disease, or end stage renal disease (principal); I50.33 Acute on chronic diastolic (congestive) heart failure; J96.21 Acute and chronic respiratory failure with hypoxia; N18.4 Chronic kidney disease, stage 4 (severe); T82.7XXA Infection and inflammatory reaction due to other cardiac and vascular devices, implants and grafts, initial encounter; L03.114 Cellulitis of left upper limb; E11.22 Type 2 diabetes mellitus with diabetic chronic kidney disease; I35.0 Nonrheumatic aortic (valve) stenosis; I48.0 Paroxysmal atrial fibrillation; E87.5 Hyperkalemia; D63.1 Anemia in chronic kidney disease; Z99.81 Dependence on supplemental oxygen; G47.33 Obstructive sleep apnea (adult) (pediatric); Z20.822 Contact with and (suspected) exposure to COVID-19; Z79.4 Long term (current) use of insulin; Z79.01 Long term (current) use of anticoagulants; Z79.899 Other long term (current) drug therapy
CPT/HCPCS: 0241U; 36415; 71046; 80048; 80053; 82607; 82728; 82746; 82947; 83540; 83735; 83880; 84484; 85014; 85018; 85025; 85027; 85610; 86850; 86900; 86901; 87040; 93005; 93306; 97161; 99285; J0690; J1940; J2470; Q9957

== ENCOUNTER → 2024-10-30 16:13 | Outpatient (BNV) | payer MEDICARE, SELFPAY | PROVIDERS: PCP Family Medicine; Visit Provider Radiology Diagnostic Radiology | DX: I51.7 Cardiomegaly (principal); J84.9 Interstitial pulmonary disease, unspecified | CPT/HCPCS: 71046 ==

== ENCOUNTER → 2024-10-30 16:13 | Outpatient (BNV) | payer MEDICARE, SELFPAY | PROVIDERS: Admitting Provider Internal Medicine; Emergency Provider Emergency Medicine; PCP Family Medicine; Visit Provider Internal Medicine | DX: R06.02 Shortness of breath (principal); R94.31 Abnormal electrocardiogram [ECG] [EKG] | CPT/HCPCS: 93010 ==

== ENCOUNTER 2024-10-30 20:44 | Outpatient (BNV) | payer MEDICARE, SELFPAY | END 2024-11-02 07:00 | PROVIDERS: Admitting Provider Internal Medicine; Emergency Provider Emergency Medicine; PCP Family Medicine; Visit Provider Internal Medicine Cardiovascular Disease | DX: J01.90 Acute sinusitis, unspecified (principal) | CPT/HCPCS: 93010 ==

== ENCOUNTER → 2024-10-30 20:44 | Outpatient (BNV) | payer MEDICARE, SELFPAY | PROVIDERS: Admitting Provider Internal Medicine; Emergency Provider Emergency Medicine; PCP Family Medicine; Visit Provider Internal Medicine Cardiovascular Disease | DX: I50.9 Heart failure, unspecified (principal) | CPT/HCPCS: 99222 ==

== ENCOUNTER → 2024-10-30 20:44 | Outpatient (BNV) | payer MEDICARE, SELFPAY | PROVIDERS: Admitting Provider Internal Medicine; Emergency Provider Emergency Medicine; PCP Family Medicine; Visit Provider Student in an Organized Health Care Education/Training Program | DX: I50.9 Heart failure, unspecified (principal); J96.01 Acute respiratory failure with hypoxia | CPT/HCPCS: 99223; 99232 ==

== ENCOUNTER 2024-11-11 15:27 | Outpatient (AMB) | payer MEDICARE, SELFPAY ==
[2024-11-11 15:39] VITALS: BP 122/60; PULSE 71; O2SAT 98; BMI 45.8
--- NOTE | 2024-11-11 15:39 | MHC.OFFVIS ---
Vital Signs 11/11/24 15:39 Height 5 ft 2 in Weight 250 lb 3.594 oz BMI 45.8 BP 122/60 Blood Pressure Location Lt brachial Position Sitting Pulse 71 Pulse Source Pulse Oximeter Pulse Oximetry (%) 98 Oxygen Delivery Method Nasal Cannula Oxygen Flow Rate 4 Intake Visit Reasons: obstructive sleep apnea Intake Note: pt is here for follow up and was in in September, and today states she thinks she is at her baseline, using oxygen day and night time use of oxygen. Cpr Ambulance Driver Required: No Allergies penicillin V Allergy (Severe, Verified 11/11/24 16:07) joint swelling and rash amlodipine [From [facility]] Adverse Reaction (Intermediate, Verified 11/11/24 16:07) edema Medication List - Last Reconciled 11/11/24 by Олег Morillo MD acarbose 25 mg PO DAILY albuterol sulfate 90 mcg/actuation 1 inh inhalation QID PRN apixaban (Eliquis) 5 mg PO BID ascorbic acid (vitamin C) 500 mg PO DAILY atorvastatin 80 mg PO BEDTIME 90 days carvedilol 25 mg PO BID cholecalciferol (vitamin D3) 1,250 mcg PO PISANO epoetin waqar (Procrit) 3,000 units subcut Q2W fexofenadine 180 mg PO DAILY FreeStyle Robert 2 [place] (flash glucose scanning reader) As directed NS FreeStyle Robert 2 Sensor (flash glucose sensor) As directed NS furosemide (Lasix) 40 mg PO DAILY furosemide 40 mg PO BID hydralazine 10 mg PO BID insulin lispro Sliding Scale: 150-200 Give 2 units 201-250 Give 4 units 251-300 Give 6 units 301-350 Give 8 units 351-400 Give 10 units 401-450 Give 12 units > 450 Give 14 units & call subcutaneously 4 times a day 15 minutes before meals; 30 days Lantus Solostar U-100 Insulin (insulin glargine) 38 units (0.38 mL) subcut BID 90 days NS miscellaneous medical supply Oxygen?concentrator. ?Daily?As directed. 999 days multivitamin 1 tab PO DAILY pen needle, diabetic (BD Ultra-Fine Susana Pen Needle) 1 each topically 2-3 times a day tirzepatide (Mounjaro) 2.5 mg subcut MO venlafaxine ER 75 mg PO DAILY 90 days venlafaxine ER (Effexor XR) 37.5 mg PO DAILY 90 days Do you need a note to return to daycare/school/sports/work: No HPI HPI obstructive sleep apnea: Details: This 69 years old very pleasant female is here for follow-up after 4 months. She is a case of morbid obesity, obstructive sleep apnea, hypoxemia, with congestive heart failure, diabetes mellitus and also chronic renal failure. From the breathing point of view she is okay as long as she uses oxygen. 2-3 L/minute continuously Recently she was hospitalized at [facility] because of increased fluid retention due to congestive heart failure. She has obstructive sleep apnea but has not been able to use the CPAP. She just uses oxygen 2 L/minute at night to overcome nocturnal hypoxemia. Because of her gross obesity, restrictive pulmonary disease, congestive heart failure, and anemia, she remains hypoxemic and requires O2 2 to 3 L/minute during the daytime also. Generally she is quite weak and ambulates with the cane or walker at home but for outdoors she has to come in the large wheelchair. She is asking to be evaluated for using a POC unit for outdoors. [facility] Medical History Heartburn On anticoagulant therapy Interstitial lung disease Respiratory failure with hypoxia Cough Exercise hypoxemia MRSA carrier CAP (community acquired pneumonia) Morbid (severe) obesity due to excess calories Heme positive stool Atrial flutter Elevated serum creatinine AMY on CPAP Chronic renal failure Secondary aldosteronism Acute renal failure Nocturnal hypoxemia Morbid obesity Diabetes type 2, controlled Oxygen dependent HTN (hypertension) Morbid obesity due to excess calories AMY (obstructive sleep apnea) Pneumonia Obesity Elevated creatine kinase Anemia Congestive heart failure High cholesterol Diabetes type 2, uncontrolled Hypertension, essential Surgical History H/O colonoscopy History of surgery History of D&C Family History Father Stroke Mother Stroke Hypertension Diabetes Maternal Grandmother Diabetes Hypertension Stroke Sister Diabetes Breast cancer Son Bipolar 1 disorder Overweight Other Mental health problem Substance abuse Social History Household Members: Family Housing: House Are you a primary career development counselor to a significant other at home: No Do you presently have visiting nurse or other home services: No Unable to assess alcohol history related to: Unable to respond Alcohol intake: current Alcohol intake frequency: does not drink Comment: pt was medicated Patient Tobacco Use Status: Former Tobacco user e-Cigarette/Vaping Use: Never Used Second Hand Smoke Exposure: No Advance Directives Date on File: 06/09/21 service: No Current occupational status: retired Cognitive needs: No Hearing needs: No Vision needs: Yes Review of Systems Const All systems reviewed & are unremarkable except as noted in HPI and below Eyes Reports no additional complaints ENT Reports no additional complaints and Reports nasal congestion (Mild intermittent) Card Denies chest pain, Denies irregular heart rhythm, Reports leg edema (Only minimal at this time) and Reports dyspnea on exertion (Mild) Resp Reports cough (Mild intermittent), Reports dyspnea on exertion (Mild) and Denies wheezing GI Reports no additional complaints Reports no additional complaints Musc Reports no additional complaints Skin/Breast Reports system reviewed and no additional complaints, except as documented Neuro Reports no additional complaints Psych Reports no additional complaints Aller/Immun Denies wheezing Physical Exam Vital Signs: Last Vital Signs Pulse 71 11/11/24 15:39 BP 122/60 11/11/24 15:39 Pulse Ox 98 11/11/24 15:39 Oxygen Delivery Method Nasal Cannula 11/11/24 15:39 Oxygen Flow Rate 4 11/11/24 15:39 BMI result Body Mass Index 45.8 Last Vital Signs Temp 97.2 F 08/05/23 11:29 Pulse 65 08/05/23 11:29 Resp 20 08/05/23 11:29 BP 121/59 L 08/05/23 11:29 Pulse Ox 96 08/05/23 11:29 O2 Del Method Nasal Cannula 08/05/23 11:29 O2 Flow Rate 2 08/05/23 11:29 Oxygen Flow Rate 4 08/01/23 13:21 BMI result Body Mass Index 43.9 Const Other: Patient is a morbidly obese with a round face, short and obese neck. .Physical features typical for obstructive sleep apnea General: comfortable, no acute distress, alert and awake Orientation/consciousness: patient oriented x3 HEENT Head: Yes normal to inspection General nose exam: No nasal polyps present and No nasal discharge present Face and sinus: Yes sinuses nontender Mouth: oropharynx abnormals (Very narrow and crowded oropharynx) Throat: Yes posterior oropharynx normal Eyes General: appearance normal, both eyes and all related structures Neck Neck: Yes normal visual inspection, Yes no lymphadenopathy, Yes trachea midline and Yes no JVD Thyroid: Thyroid normal Chest Chest palpation & inspection: normal inspection of the chest, normal palpation of entire chest wall and no tenderness Resp Other: Percussion note is not perceptible because of thick chest wall. Breath sounds are generally diminished especially over the basilar areas. There are a few inspiratory crepitations over the right mid chest and basilar areas. Cardio Palpation: PMI not normal (Not palpable) Rate: regular rate Rhythm: regular rhythm Heart sounds: no gallops and no murmurs GI Palpation (GI): Soft to palpation, nontender, No hepatosplenomegaly present and no masses Auscultation: normal bowel sounds Back/Spine/Pelvis Other: Not examine Thoracic/Lumbar Spine: thoracic and lumbar spine normal to inspection Skin General skin exam: no rashes or lesions noted Neuro General: patient oriented x3 and no focal motor deficits Cranial nerves: Yes CN's II-XII intact bilaterally Extrem General: Yes normal to inspection, Yes no calf tenderness and Yes edema (TRACE OF EDEMA OF THE LEGS) Psych Appearance: grossly normal Speech and movement: Normal speech and movement present Assessment & Plan Assessment & Plan (1) Morbid obesity: Comment: PATIENT CONTINUES TO BE MORBIDLY OBESE. IS DIFFICULT FOR HER TO LOSE WEIGHT. Code(s): E66.01 - Morbid (severe) obesity due to excess calories Category: Medical Plan: She has been seen by endocrinology. Has been started on Mounjaro injections , and expects to lose weight. (2) AMY on CPAP: Comment: This patient has longstanding history of obstructive sleep apnea and has been using CPAP very regularly in the past. NOW FOR THE PAST 1 YEAR OR SO SHE HAS NOT BEEN ABLE TO USE THE CPAP. INSTEAD OF CPAP SHE JUST USES O2 2 L/MINUTE AT NIGHT. BECAUSE OF HER ASSOCIATED CONGESTIVE HEART FAILURE AND GROSS RESTRICTIVE LUNG DISEASE, SHE HAS DAYTIME HYPOXEMIA WELL Code(s): G47.33 - Obstructive sleep apnea (adult) (pediatric); Z99.89 - Dependence on other enabling machines and devices Category: Medical Plan: OK TO USE O2 2-3 L/MINUTE AT NIGHT WELL DURING THE DAYTIME . PATIENT IS GOING TO HAVE 6 MINUTES WALK TEST, TO QUALIFY FOR OXYGEN CONSERVING UNIT . (3) Respiratory failure with hypoxia: Comment: She has persistent hypoxemia at rest as well as on minimal exercise. This seems to be due to combination of restrictive lung disease, interstitial lung disease ,Anemia, and congestive heart failure. Code(s): J96.91 - Respiratory failure, unspecified with hypoxia Category: Medical Plan: Continue using O2 2-3 L/minute to keep O2 sat above 90% Coding Level of Care Code Est Pt Level 4 (08220) Diagnoses Morbid obesity E66.01 AMY on CPAP G47.33; Z99.89 Respiratory failure with hypoxia J96.91
--- OUTSIDE RECORDS SUMMARY | 2024-11-11 17:46 | XMS_ITS | Clinical Summary ---
Author Organization [facility] Address [address] [place] [address] Phone Care Team Providers Care Undercover Cop Name Role Phone Sadi Harden MD Primary Care Provider [phone] [phone] Allergies Active Allergy Reactions Criticality Noted Date Comments Penicillins Other (see comments) 05/09/2022 Medications ascorbic acid (VITAMIN C) 500 MG tablet Take 500 mg by mouth 1 (one) time each day Active atorvastatin (LIPITOR) 80 MG tablet Take 80 mg by mouth 1 (one) time each day Active carvedilol (COREG) 25 MG tablet Take 25 mg by mouth in the morning and 25 mg in the evening. Take with meals. Active ferrous sulfate 325 (65 Fe) MG tablet Take 325 mg by mouth 1 (one) time each day with breakfast Active fexofenadine (NAPOLEON) 180 MG tablet Take 180 mg by mouth 1 (one) time each day Active furosemide (LASIX) 40 MG tablet Take 40 mg by mouth in the morning and 40 mg in the evening. Active insulin glargine (LANTUS) 100 UNIT/ML injection Inject 70 Units under the skin every night Active insulin lispro (HumaLOG) 100 UNIT/ML injection Inject under the skin 3 (three) times a day before meals Active aspirin (ST ROLA) 81 MG EC tablet Take 81 mg by mouth 1 (one) time each day Active lisinopril 10 MG tablet Take 10 mg by mouth 1 (one) time each day Active venlafaxine XR (EFFEXOR-XR) 37.5 MG 24 hr capsule Take 37.5 mg by mouth 1 (one) time each day 4 Active venlafaxine XR (EFFEXOR-XR) 75 MG 24 hr capsule Take 75 mg by mouth 1 (one) time each day 4 Active Eliquis 5 MG tablet Take 5 mg by mouth in the morning and 5 mg in the evening. 4 Active hydrALAZINE (APRESOLINE) 10 MG tablet Take 10 mg by mouth in the morning and 10 mg in the evening. 4 Active sodium polystyrene sulfonate (KAYEXALATE) powder Take 15 g by mouth 3 (three) times weekly on Saturday Active Epoetin Derick-epbx (Retacrit) 50219 UNIT/ML solution Inject as directed Active D3-50 1.25 MG (44716 UT) capsule TAKE 1 CAPSULE ORALLY EVERY SATURDAY AT 9:00 AM FOR 90 DAYS 4 Active Active Problems Problem Noted Date Diagnosed Date Secondary hyperparathyroidism 12/25/2023 Hyperphosphatemia 12/25/2023 Hyperkalemia 12/25/2023 Chronic kidney disease, stage 4 (severe) 022 Anemia of chronic renal failure 05/09/2022 Hypertension 05/09/2022 Proteinuria 05/09/2022 Acute nontraumatic kidney injury 05/09/2022 Dyslipidemia 05/09/2022 Murmur 05/09/2022 Diabetic glomerulonephritis 05/09/2022 Diabetes mellitus, not otherwise specified 05/09 Resolved Problems Problem Noted Date Diagnosed Date Resolved Date Depressive disorder 05/09/2022 08/08/20 22 [facility] 05/09/2022 08/08/2022 Fall on same level from slip ping, tripping and stumbling with subsequent striking against other object, initial encounter 05/20/2020 08/08/2022 Pain in right knee 05/20/2020 2 Strain of hamstring muscle 05/16/2020 1 Acute pharyngitis 08/06/2019 08/08/2022 Cough 08/06/2019 08/08/2022 Acute upper respiratory infection 08/04/2019 08/08/2022 Encounters Date Type Department Care Team Description 10/10/2024 Orders Only [facility] [address] [address] Dwayne Sorto MD Chronic kidney disease, stage 4 (severe) (HCC); Diabetic glomerulonephritis (HCC); Persistent proteinuria; Hypertension; Hyperkalemia; Other acute kidney failure (HCC); Secondary hyperparathyroidism (HCC) 09/21/2024 Documentation Only [facility] [address] [address] Dwayne Sorto MD No Show (No show/) from Last 3 Months Family History Medical History Relation Comments Stroke Father Diabetes Maternal Grandmother Hypertension Maternal Grandmother Stroke Maternal Grandmother Diabetes Mother Hypertension Mother Stroke Mother Cancer Sister Breast Cancer Diabetes Sister Relation Status Comments Father Maternal Grandmother Mother Sibling 1 Sibling 2 Sibling 3 Sister Social History Tobacco Use Types Packs/Day Years Used Date Smoking Tobacco: Never Alcohol Use Standard Drinks/Week Comments No 0 (1 standard drink = 0.6 oz pur e alcohol) Comments Unknown Sex and Gender Information Value Date Recorded Sex Assigned at Not on file Legal Sex Female 4:46 PM EST Gender Identity Not on file Sexual Orientation Not on file Last Filed Vital Signs Vital Sign Reading Time Taken Comments Blood Pressure 112/78 08/10/2024 9:02 AM EDT Pulse 66 08/10/2024 9:02 AM EDT Temperature - - Respiratory Rate - - Oxygen Saturation 97% 05/07/2024 7:48 AM EDT Inhaled Oxygen Concentration - - Weight 111 kg (245 lb) 08/10/2024 9:02 AM EDT Height 157.5 cm (5' 2 ) 05/07/2024 7:48 AM EDT Body Mass Index 44.81 05/07/2024 7:48 AM EDT Plan of Treatment Upcoming Encounters Date Type Department Care Team (Late st Contact Info) Description 11/19/2024 11:00 AM EST Office Visit [facility] [address] [address] Dwayne Sorto MD [address] [phone] Health Maintenance Due Date Last Done Comments Breast Cancer Screening 1955 Colorectal Cancer Screening: Annual FOBT 2003 Colorectal Cancer Screening: Colonoscopy 2003 Colorectal Cancer Screening: Sigmoidoscopy 2003 Pneumococcal Vaccine: 65+ Years (3 of 3 - PCV) 09/14/2010 09/14/2009, 09/18/2004, 07/25/1999 Diabetes: Ophthalmology Exam 11/20/2020 Diabetes: Pedal Pulse Checked 11/20/2020 Diabetes: Sensory Foot Exam 11/20/2020 Diabetes: Visual Foot Exam 11/20/2020 Diabetes: Hemoglobin A1C 05/22/2024 02/20/2024, 02/19 Influenza Vaccine (#1) 2024 9, 07/28/2008, 07/22/2006, Additional history exists Hepatitis B Vaccine Aged Out No longe r eligible based on patient's age to complete this topic Procedures Procedure Name Priority Date/Time Associated Diagnosis Comments EXT RESULT ENTRY Routine 09/10/2024 HEMOGLOBIN A1C Routine 02/20/2024 3:22 PM EDT from Last 3 Months or Most Recently Relevant to Health Maintenance Results * (ABNORMAL) EXT RESULT ENTRY (09/10/2024) WBC 11.3(A) 3.3 - 10.0 10*3/ML Red Blood Cell Count 3.58 Hemoglobin 10.5(A) 12.0 - 16.0 Hematocrit 34.3(A) 36.0 - 46.0 Platelets 374 150 - 399 10*3/UL MCV 95.8 82.0 - 108.0 Sodium 143 137 - 147 Potassium 4.6 3.4 - 5.5 Chloride 110.0(A) 99.0 - 108.0 Carbon Dioxide 21 mmol/L Anion Gap 17 <=30 MMOL/L Glucose 92 60 - 200 BUN 66(A) 4 - 21 mg/dL Creatinine 4.35(A) 0.50 - 1.10 mg/dL Calcium 8.3(A) 8.7 - 10.7 mg/dL eGFR Non-Afr Martiniquais 10 09/10/2024 us Historical Provider LAB BLOOD ORDERABLES Susan l Result * (ABNORMAL) Hemoglobin A1c (02/20/2024 3:22 PM EDT) Hemoglobin A1C 8.2(H) 4.8 - 5.6 % See order comments Comment: ? Prediabetes: 5.7 - 6.4 ? Diabetes: >6.4 ? Glycemic control for adults with diabetes: <7.0 02/20/2024 3:22 PM EDT 02/20/2024 Narrative [facility] - 02/21/2024 1:06 PM EDT Performed at: ??01 - [facility] [address] ??[id number] Construction Sales Representative: Judie Tarango MD, Phone: ??[phone] us Dwayne Sorto MD LAB BLOOD ORDERABLES Final Re sult Performing Organization Address City/State/[facility] Co de Phone Number [facility] See order comments Contact performing lab [facility] [place] [address] from Last 3 Months or Most Recently Relevant to Health Maintenance Insurance MEDICARE [id number] MEDICARE Care Teams Undercover Cop Relationship Specialty Start Date End Date Sadi Harden MD [address] [place] [id number] PCP - General Family Medicine 12/25/23
--- OUTSIDE RECORDS SUMMARY | 2024-11-11 17:46 | XMS_ITS | Encounter Summary ---
Author Organization [facility] Address [address] [place] [address] Phone Care Team Providers Care Lithographic Proofer Name Role Phone Sadi Harden MD Primary Care Provider [phone]- [phone] Encounter Details Date Type Department Care Team (Late Contact Info) Description 02/18/2023 Telephone [facility] [address] [place] [address] Bita Amaya Social History Tobacco Use Types Packs/Day Years Used Date Smoking Tobacco: Never Alcohol Use Standard Drinks/Week Comments No 0 (1 standard drink = 0.6 oz pur e alcohol) Comments Unknown Sex and Gender Information Value Date Recorded Sex Assigned at Not on file Legal Sex Female 4:46 PM EST Gender Identity Not on file Sexual Orientation Not on file documented as of this encounter Miscellaneous Notes * Telephone Encounter - Bita Amaya - 02/18/2023 10:27 AM EDT PT says that her script for Sodium Zirconium Cyclosilicate (Lokelma) 10 g pack is not covered with her insurance, she is asking for an alternative in place of this one. documented in this encounter Plan of Treatment Upcoming Encounters Date Type Department Care Team (Late Contact Info) Description 11/19/2024 11:00 AM EST Office Visit [facility] [address] [facility] [address] [place] [address] Dwayne Sorto MD [address] [phone] documented as of this encounter Visit Diagnoses Not on filedocumented in this encounter Care Teams Lithographic Proofer Relationship Specialty Start Date End Date Sadi Harden MD [facility] [place] [address] PCP - General Family Medicine 12/25/23 documented as of this encounter
--- OUTSIDE RECORDS SUMMARY | 2024-11-11 17:46 | XMS_ITS | Encounter Summary ---
Author Organization [facility] Address [address] [place] [phone] Phone Care Team Providers Care Shade Matcher Name Role Phone Sadi Harden MD Primary Care Provider [phone]- [phone] Encounter Details Date Type Department Care Team (Latest Contact Info) Description 10/10/2024 Orders Only [facility] [address] [address] Dwayne Sorto MD [address] [place] [phone] Chronic kidney disease, stage 4 (severe) (HCC); Diabetic glomerulonephritis (HCC); Persistent proteinuria; Hypertension; Hyperkalemia; Other acute kidney failure (HCC); Secondary hyperparathyroidism (HCC) Social History Tobacco Use Types Packs/Day Years [...] on file documented as of this encounter Plan of Treatment Upcoming Encounters Date Type Department Care Team (Late st Contact Info) Description 11/19/2024 11:00 AM EST Office Visit [facility] [place] [address] [address] Dwayne Sorto MD [address] [place] [phone] documented as of this encounter Visit Diagnoses Diagnosis Chronic kidney disease, stage 4 (severe) (HCC) Diabetic glomerulonephritis (HCC) Persistent proteinuria Hypertension Hyperkalemia Other acute kidney failure (HCC) Secondary hyperparathyroidism (HCC) documented in this encounter Care Teams Shade Matcher Relationship Specialty Start Date End Date Sadi Harden MD [address] [place] [id number] PCP - General Family Medicine 12/25/23 documented as of this encounter
== END 2024-11-11 16:06 | disposition home or self-care (01) ==
PROVIDERS: PCP Family Medicine; Visit Provider Internal Medicine
DX: E66.01 Morbid (severe) obesity due to excess calories (principal); G47.33 Obstructive sleep apnea (adult) (pediatric); Z99.89 Dependence on other enabling machines and devices; J96.91 Respiratory failure, unspecified with hypoxia
CPT/HCPCS: 99214

== ENCOUNTER → 2024-11-11 15:27 | Outpatient (BNVA) | payer MEDICARE, SELFPAY | PROVIDERS: PCP Family Medicine; Visit Provider Internal Medicine | DX: G47.33 Obstructive sleep apnea (adult) (pediatric) (principal); E66.01 Morbid (severe) obesity due to excess calories; I50.9 Heart failure, unspecified; J96.91 Respiratory failure, unspecified with hypoxia; Z99.81 Dependence on supplemental oxygen; Z99.89 Dependence on other enabling machines and devices; Z68.42 Body mass index [BMI] 45.0-49.9, adult | CPT/HCPCS: 99212 ==

== ENCOUNTER 2024-11-12 15:12 | Outpatient (AMB) | payer MEDICARE, SELFPAY ==
--- NOTE | 2024-11-12 15:15 | A.OFFVIS_ITS ---
Vital Signs 11/12/24 15:19 Height 5 ft 2 in Weight 250 lb 3.5 oz BMI 45.8 BP 124/76 Blood Pressure Location Rt brachial Position Sitting Pulse 70 Pulse Source Pulse Oximeter Intake Visit Reasons: T2DM Intake Note: Patient presents today for a follow-up on Type 2 Diabetes Mellitus: Last Diabetic eye exam was on: Last Podiatry exam was on: Does not see a Fish Flipper Most recent HbA1c: 7.8%, 10/01/2024 Random Glucose- mg/dL, Today Ballistics Tester Required: No Accompanied by: Daughter Allergies penicillin V Allergy (Severe, Verified 11/12/24 15:19) joint swelling and rash amlodipine [From [facility]] Adverse Reaction (Intermediate, Verified 11/12/24 15:19) edema HPI Comments Details: 69 year old female presenting for diabetic follow up Medical history CKD stage 4, HFPEF Current medications: Lantus 38 units am/36 units pm, sliding scale insulin-has not really been using, mounjaro, acarbose. Eating dinner between 6-7pm. Generally taking about 10 units with dinner. Sometimes taking the short acting into meal time. Interested in weight loss CGM downloaded GMI 6.7% high 22% TGT 75 % low 3%.Was in the hospital for blood clots. ROS CONSTITUTIONAL: Denies weight loss, fever and chills. HEENT: Denies changes in vision and hearing. RESPIRATORY: Denies SOB and cough. CV: Denies palpitations and CP GI: Denies abdominal pain, nausea, vomiting and diarrhea. : Denies dysuria and urinary frequency. MSK: Denies new myalgia and joint pain. SKIN: Denies rash and pruritus. NEUROLOGICAL: Denies headache PSYCHIATRIC: Denies recent changes in mood. PHYSICAL EXAM: GENERAL: Alert and oriented x 3. NAD EYES: EOMI. Anicteric. HENT: Moist mucous membranes. No scleral icterus. No cervical lymphadenopathy. LUNGS: Clear to auscultation bilaterally. CARDIOVASCULAR: Regular rate and rhythm. No murmur. No JVD. ABDOMEN: Soft, non-tender +bs EXTREMITIES: No edema. Non-tender. SKIN: No rashes or lesions. Warm. NEUROLOGIC: No focal neurological deficits. CN II-XII grossly intact PSYCHIATRIC: Cooperative. Appropriate mood and affect [facility] Medical History Heartburn On anticoagulant therapy Interstitial lung disease Respiratory failure with hypoxia Cough Exercise hypoxemia MRSA carrier CAP (community acquired pneumonia) Morbid (severe) obesity due to excess calories Heme positive stool Atrial flutter Elevated serum creatinine AMY on CPAP Chronic renal failure Secondary aldosteronism Acute renal failure Nocturnal hypoxemia Morbid obesity Diabetes type 2, controlled Oxygen dependent HTN (hypertension) Morbid obesity due to excess calories AMY (obstructive sleep apnea) Pneumonia Obesity Elevated creatine kinase Anemia Congestive heart failure High cholesterol Diabetes type 2, uncontrolled Hypertension, essential Surgical History H/O colonoscopy History of surgery History of D&C Family History Father Stroke Mother Stroke Hypertension Diabetes Maternal Grandmother Diabetes Hypertension Stroke Sister Diabetes Breast cancer Son Bipolar 1 disorder Overweight Other Mental health problem Substance abuse Social History Household Members: Family Housing: House Are you a primary rn critical care to a significant other at home: No Do you presently have visiting nurse or other home services: No Unable to assess alcohol history related to: Unable to respond Alcohol intake: current Alcohol intake frequency: does not drink Comment: pt was medicated Patient Tobacco Use Status: Former Tobacco user e-Cigarette/Vaping Use: Never Used Second Hand Smoke Exposure: No Advance Directives Date on File: 06/09/21 service: No Current occupational status: retired Cognitive needs: No Hearing needs: No Vision needs: Yes Physical Exam Vital Signs: Last Vital Signs Pulse 70 11/12/24 15:19 BP 124/76 11/12/24 15:19 BMI result Body Mass Index 45.8 Results Reviewed Results Reviewed: Laboratory Last Values Glucose (Clinic) 152 mg/dL (60-115) H 11/12/24 15:24 Assessment & Plan Assessment & Plan (1) Type 2 diabetes mellitus: Code(s): E11.9 - Type 2 diabetes mellitus without complications Category: Medical Qualifiers: Diabetes mellitus complication detail: without coma Diabetes mellitus complication status: with hypoglycemia Diabetes mellitus terminal carman insulin use: with terminal carman use Qualified Code(s): E11.649 - Type 2 diabetes mellitus with hypoglycemia without coma; Z79.4 - exterminator termite (current) use of insulin Plan: Congratulated on control but discussed need to signficantly decrease the frequency of lows Decrease lantus to 30 units BID. She will change from sliding scale which has been up to 14 units to 5u with meals if BG>200 cc Increase mounjaro to 5mg weekly. Continue acarbose Return in 3 months or sooner as needed Medications: New Mounjaro (tirzepatide) 5 mg (0.5 mL) subcut QWEEK 6 mL 3RF NS E11.65 - Type 2 diabetes mellitus with hyperglycemia, Z79.4 - jail (current) use of insulin Changed From Lantus Solostar U-100 Insulin (insulin glargine) 38 units (0.38 mL) subcut BID 90 days 45 mL 12RF NS E11.9 - Type 2 diabetes mellitus without complications To Lantus Solostar U-100 Insulin (insulin glargine) 34 units (0.34 mL) subcut BID 90 days 61.2 mL 12RF NS E11.9 - Type 2 diabetes mellitus without complications From Lantus Solostar U-100 Insulin (insulin glargine) 34 units (0.34 mL) subcut BID 90 days 61.2 mL 12RF NS E11.9 - Type 2 diabetes mellitus without complications To Lantus Solostar U-100 Insulin (insulin glargine) 30 units (0.3 mL) subcut BID 54 mL 12RF 90 days NS E11.9 - Type 2 diabetes mellitus without complications From insulin lispro Sliding Scale: 150-200 Give 2 units 201-250 Give 4 units 251-300 Give 6 units 301-350 Give 8 units 351-400 Give 10 units 401-450 Give 12 units > 450 Give 14 units & call MD subcutaneously 4 times a day 15 minutes before meals; See Rx Instructions subcut QID 30 days 45 mL 11RF To insulin lispro Take 5 units before meals if BG>200 See Rx Instructions units subcut QID 45 mL 11RF 30 days Coding Level of Care Code Est Pt Level 5 (30842) Diagnoses Type 2 diabetes mellitus with hypoglycemia without coma, with long-term current use of insulin E11.649; Z79.4 Diabetes mellitus complication detail: without coma Diabetes mellitus complication status: with hypoglycemia Diabetes mellitus terminal carman insulin use: with terminal carman use
[2024-11-12 15:19] VITALS: BP 124/76; PULSE 70; BMI 45.8
[2024-11-12 15:30] LABS: Glucose, Whole Blood 152 mg/dL (60-115)
== END 2024-11-12 15:47 | disposition home or self-care (01) ==
PROVIDERS: PCP Family Medicine; Visit Provider Internal Medicine
DX: E11.649 Type 2 diabetes mellitus with hypoglycemia without coma (principal); Z79.4 Long term (current) use of insulin

== ENCOUNTER → 2024-11-12 15:12 | Outpatient (BNVA) | payer MEDICARE, SELFPAY | PROVIDERS: PCP Family Medicine; Visit Provider Internal Medicine | DX: E11.649 Type 2 diabetes mellitus with hypoglycemia without coma (principal); E11.65 Type 2 diabetes mellitus with hyperglycemia; Z79.4 Long term (current) use of insulin | CPT/HCPCS: 82947; 99212 ==

== ENCOUNTER 2024-11-19 14:21 | Outpatient (AMB) | payer MEDICARE, SELFPAY ==
--- NOTE | 2024-11-19 14:40 | AM.OFFVISNUR ---
Intake Visit Reasons: 6MW Tapper Operator Required: No Allergies penicillin V Allergy (Severe, Verified 11/12/24 15:19) joint swelling and rash amlodipine [From [facility]] Adverse Reaction (Intermediate, Verified 11/12/24 15:19) edema Office Procedures 6 Minute Walk Time:: 14:25 SPO2 % at rest: 87 Pulse at rest: 72 SPO2 % during excercise: 83 Pulse during excercise: 86 SPO2 % after excercise: 94 Pulse after excercise: 88 Distance in yards walked: 150 Low Score: 8 Performance Observations:: Pt ambulated O2 sat on R/A at rest 87%, O2 applies on Pulsed O2 @ 2lpm O2 sat increased to 91%, Pt ambulated on level ground with the use of cane, after approximately 20 steps, O2 sat decreased to 84% stopped increased O2 to 4lpm pulsed. Pt O2 came up to 91% resumed ambulation O2 sat decreased to 83%, O2 changed to 3lpm cont flow O2 sat increased to 94% Recommend cont flow O2 at 3lpm cont flow. 42489 - 6 Minute Walk Coding CPT Codes Coding ([id number])
[2024-11-19 14:46] VITALS: PULSE 72; O2SAT 87
--- OUTSIDE RECORDS SUMMARY | 2024-11-19 18:19 | XMS_ITS | Encounter Summary ---
Author Organization [facility] Address [address] [address] Phone Care Team Providers Care Pv Installer Tech Name Role Phone Sadi Harden MD Primary Care Provider [phone]- [phone] Reason for Visit * Reason Onset Date Comments No Show 11/19/2024 No show Encounter Details Date Type Department Care Team (Latest Contact Info) Description 11/19/2024 Documentation Only [facility] [address] [phone] Dwayne Sorto MD [address] [phone] No Show (No show/) Social History Tobacco Use Types Packs/Day Years [...] as of this encounter Plan of Treatment Not on file documented as of this encounter Visit Diagnoses Not on filedocumented in this encounter Care Teams Pv Installer Tech Relationship Specialty Start Date End Date Sadi Harden MD [address] [place] [address] PCP - General Family Medicine 12/25/23 documented as of this encounter
--- OUTSIDE RECORDS SUMMARY | 2024-11-19 18:19 | XMS_ITS | Clinical Summary ---
Author Organization [facility] Address [address] [facility] [address] [place] [address] Phone Care Team Providers Care Loader Engineer Name Role Phone Sadi Harden MD Primary Care Provider [phone] [phone] Allergies Active Allergy Reactions Criticality Noted Date [...] weekly on Saturday Active Epoetin Derick-epbx (Retacrit) 32332 UNIT/ML solution Inject as directed Active D3-50 1.25 MG (42664 UT) capsule TAKE 1 CAPSULE ORALLY EVERY [...] 05/09/2022 08/08/20 22 Hypertensive heart disease w ithout heart failure 05/09/2022 08/08/2022 Fall on same level from slip ping, tripping and stumbling with subsequent striking against other object, initial encounter 05/20/2020 08/08/2022 Pain in right knee 05/20/2020 2 Strain of hamstring muscle 05/16/2020 1 Acute pharyngitis 08/06/2019 08/08/2022 Cough 08/06/2019 08/08/2022 Acute upper respiratory infection 08/04/2019 08/08/2022 Encounters Date Type Department Care Team Description 11/19/2024 Documentation Only [facility] [address] [place] [phone] Dwayne Sorto MD No Show (No show/) 10/10/2024 Orders Only [facility] [address] [place] [phone] Dwayne Sorto MD Chronic kidney disease, stage 4 (severe) (HCC); Diabetic glomerulonephritis (HCC); Persistent proteinuria; Hypertension; Hyperkalemia; Other acute kidney failure (HCC); Secondary hyperparathyroidism (HCC) 09/21/2024 Documentation Only [facility] [address] [place] [phone] Dwayne Sorto MD No Show (No show/) [...] 05/07/2024 7:48 AM EDT Plan of Treatment Health Maintenance Due Date Last Done Comments [...] 8.3(A) 8.7 - 10.7 mg/dL eGFR Non-Afr Bahraini 10 09/10/2024 us Historical Provider LAB BLOOD ORDERABLES Susan l Result * (ABNORMAL) Hemoglobin A1c (02/20/2024 3:22 PM EDT) Hemoglobin A1C 8.2(H) 4.8 - 5.6 % See order comments Comment: ? Prediabetes: 5.7 - 6.4 ? Diabetes: >6.4 ? Glycemic control for adults with diabetes: <7.0 02/20/2024 3:22 PM EDT 02/20/2024 Narrative [facility] - 02/21/2024 1:06 PM EDT Performed at: ??01 - [facility] [address] ??[id number] Ruby Engineer: Judie Tarango MD, Phone: ??[phone] us Dwayne Sorto MD LAB BLOOD ORDERABLES Final Re sult [facility] See order comments [place] [address] from Last 3 Months or Most Recently Relevant to Health Maintenance Insurance MEDICARE MEDICARE Care Teams Loader Engineer Relationship Specialty Start Date End Date Sadi Harden MD [facility] [place] [address] PCP - General Family Medicine 12/25/23
--- OUTSIDE RECORDS SUMMARY | 2024-11-19 18:19 | XMS_ITS | Encounter Summary ---
Author Organization [facility] Address [address] [place] [address] Phone Care Team Providers Care Vacuum Pan Tender Name Role Phone Sadi Harden MD Primary Care Provider [phone] Encounter Details Date Type Department Care Team (Late st Contact Info) Description 02/18/2023 Telephone [facility] [address] [place] [phone] Bita Amaya Social History Tobacco Use Types [...] documented in this encounter Plan of Treatment Not on file documented as of this encounter Visit Diagnoses Not on filedocumented in this encounter Care Teams Vacuum Pan Tender Relationship Specialty Start Date End Date Sadi Harden MD [address] [place] [address] PCP - General Family Medicine 12/25/23 documented as of this encounter
== END 2024-11-19 15:23 | disposition home or self-care (01) ==
PROVIDERS: PCP Family Medicine; Visit Provider Internal Medicine
DX: J96.90 Respiratory failure, unspecified, unspecified whether with hypoxia or hypercapnia (principal)

== ENCOUNTER → 2024-11-19 14:21 | Outpatient (BNVA) | payer MEDICARE, SELFPAY | PROVIDERS: PCP Family Medicine; Visit Provider Internal Medicine | DX: Z13.83 Encounter for screening for respiratory disorder NEC (principal) | CPT/HCPCS: 94618 ==

== ENCOUNTER 2024-11-19 15:30 | Outpatient (RCR) | payer MEDICARE, SELFPAY ==
[2024-05-19 08:56] VITALS: BP 105/54; PULSE 72; O2SAT 95; BMI 44.1
--- NOTE | 2024-05-19 09:35 | P.CNHO_ITS ---
Subjective - Subjective Chief complaint: Consult for: Normochromic normocytic anemia. Patient: new to practice Consult date: 05/19/24 Requesting Physician: Sadi Harden MD Primary Care Provider: Sadi Harden MD Family Provider: Sadi Harden MD Medical Summary: DIAGNOSIS: NORMOCHROMIC NORMOCYTIC ANEMIA. HPI - Consult Narrative Reason for consult: Consult for: Anemia. Narrative: Amaris Hook is a 69 year old lady, referred by Dr. Sadi Harden on account of anemia. From 04/17: CBC: WBC 12.3, HGB 7.4, HCT 24.5, MCV 98.8, PLT 326. Review of previous labs: 04/13 HGB 7.2. 02/14. HGB 8.4. 08/29/2023. HGB 9.6. 06/10. HGB 8.3. PAST MEDICAL HISTORY: 1. Hypertension. 2. Diabetes. 3. CKD stage 4. FAMILY HISTORY: Mom of a stroke at 67. A brother had a head injury and had a stroke. 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 She has been for 19 years. She has 2 sons. She tried smoking at the age of 18. Denies alcohol. ROS: She tells me she has had anemia all her life. Lately her energy level has been pretty good. She did need a blood transfusion last month. No fever chills or night sweats. Appetite is good. She denies weight loss. She denies headache. She feels a bit dizzy. This morning her blood pressure and blood sugar were both low. Sugar was 69. She took orange juice and did not take her morning insulin. She denies chest pain. She has shortness of breath related to CHF and pulmonary fibrosis. She sees Dr. Morillo. She gets occasional heartburn. She gets occasional nausea. No vomiting. No abdominal pain. She denies any bowel complaints. No gross blood in the stools. She had an upper endoscopy and colonoscopy in July which were benign. She has CKD, stage IV. She sees Dr. Evans in [place]. She denies any joint pain or muscle pain. Denies any focal weakness. She has history of depression. She is on venlafaxine. No skin rashes no pruritus. Review of Systems - Constitutional Reports no additional constitutional complaints - Eyes Reports no additional eye complaints - ENT Reports no additional ear, nose, mouth, and throat complaints - Cardiovascular Reports no additional cardiovascular complaints - Respiratory Reports no additional respiratory complaints - Gastrointestinal Reports no additional gastrointestinal complaints - Genitourinary Reports no additional female genitourinary complaints - Musculoskeletal Reports no additional musculoskeletal complaints - Integumentary/Breasts Skin/Breast: Reports no additional skin complaints - Neurologic Reports no additional neurologic complaints - Psychiatric Reports no additional psychiatric complaints - Endocrine Reports no additional endocrine complaints - Hematologic/Lymphatic Reports no additional hematologic/lymphatic complaints - Allergic/Immunologic Reports no additional allergic/immunologic complaints Oncology Screenings - ECOG Performance Status ECOG Performance Status: 1 [facility] Medical History: Medical History (Last Reviewed 05/19/24 @ 08:54 by Braxton Alan) Acute renal failure Anemia Atrial flutter CAP (community acquired pneumonia) Chronic renal failure Congestive heart failure Cough Diabetes type 2, controlled Diabetes type 2, uncontrolled Elevated creatine kinase Elevated serum creatinine Exercise hypoxemia Heme positive stool High cholesterol HTN (hypertension) Hypertension, essential Interstitial lung disease Morbid (severe) obesity due to excess calories Morbid obesity Morbid obesity due to excess calories MRSA carrier Nocturnal hypoxemia Obesity AMY (obstructive sleep apnea) AMY on CPAP Oxygen dependent Pneumonia Respiratory failure with hypoxia Secondary aldosteronism Functional capacity: uses cane/walker Patient : No Family History: Family History (Last Reviewed 05/19/24 @ 08:54 by Braxton Alan) Father Stroke Mother Stroke Hypertension Diabetes Maternal Grandmother Diabetes Hypertension Stroke Sister Diabetes Breast cancer Son Bipolar 1 disorder Overweight Other Mental health problem Substance abuse Surgical History: Surgical History (Last Reviewed 05/19/24 @ 08:54 by Braxton Alan) History of D&C History of surgery Social History: Social History (Last Updated 05/19/24 @ 08:54 by Braxton Alan) Living Situation History: Household Members: Children Housing: House Do you presently have visiting nurse or other home services: No Alcohol History: Unable to assess alcohol history related to: Unable to respond Alcohol History Details: 1. How often do you have a drink containing alcohol?: a. Never Tobacco History: Patient Tobacco Use Status: Former Tobacco user e-Cigarette/Vaping Use: Never Used Second Hand Smoke Exposure: No Substance Use History: Use of substances other than those prescribed or required for medical reasons : No Domestic Abuse History: Have you been hit, kicked, punched, or otherwise hurt by someone within the past year? If so, by whom?: No Do you feel safe in your current relationship?: Yes Advance Directives: Advance Directives Date on File: 06/09/21 Homicidal Assessment: Do you have thoughts of harming others: None Do you have a plan to hurt others: No Plan Nutrition Assessment: Patient : No Occupation Assessmet: service: No Current occupational status: retired Home Medications and Allergies Home Medications ?Medication ?Instructions ?Recorded ?Confirmed ?Type ascorbic acid (vitamin C) 500 mg 500 mg PO DAILY 09/22/20 05/19/24 History tablet fexofenadine 180 mg tablet 180 mg PO DAILY 09/22/20 05/19/24 History multivitamin 1 tab PO DAILY 09/12/22 05/19/24 History ferrous sulfate 325 mg (65 mg 325 mg PO DAILY 11/27/22 05/19/24 History iron) tablet insulin lispro 100 unit/mL See Rx Instructions subcut QID 08/01/23 05/19/24 History subcutaneous pen sodium polystyrene sulfonate 15 g PO 3XW 08/01/23 05/19/24 History venlafaxine 37.5 mg 37.5 mg PO BID 11/14/23 05/19/24 History capsule,extended release 24 hr (Effexor XR) venlafaxine 75 mg capsule,extended 75 mg PO DAILY 02/03/24 05/19/24 History release 24 hr Allergies Allergy/AdvReac Type Severity Reaction Status Date / Time penicillin V Allergy Severe joint Verified 05/19/24 08:54 swelling and rash amlodipine [From [facility]] AdvReac Intermediate edema Verified 05/19/24 08:54 Physical Exam Vital signs: Vital Signs Pulse 72 05/19/24 08:56 BP 105/54 L 05/19/24 08:56 Pulse Ox 95 05/19/24 08:56 O2 Del Method Room Air 05/19/24 08:56 Intake & Output 05/18/24 05/19/24 05/19/24 18:59 06:59 18:59 Other: Weight 109.3 kg Weight in Grams [id number] Weight 109.3 kg Hem/Onc Consult Result - Labs CBC & Chem 7: 05/19/24 10:01 05/19/24 10:01 Assessment and Plan Patient Active problem list reviewed?: Yes (1) Anemia Status: Acute Assessment and plan: This is a pleasant 69-year-old lady with a history of chronic normochromic normocytic anemia, although the recent indices were a little macrocytic. DIFFERENTIAL DIAGNOSIS: 1. ANEMIA OF CHRONIC DISEASE: This is most likely. He does have underlying CKD stage 4. She follows with renal. 2. B12/FOLATE DEFICIENCY: Is also a possibility. 3. IRON DEFICIENCY ANEMIA; is not likely. Iron Studies: . She has an elevated ferritin level. 4. HEMOLYTIC ANEMIA: Is in the differential. 5. UNDERLYING MYELO INFILTRATIVE DISORDER: MDS can be associated with elevated MCV. Lymphoma versus multiple myeloma PLAN: I will proceed with further evaluation. Will check CBCD: WBC 10.6, HGB 9, HCT 28.5, MCV 96.3, PLT 351. Check iron studies and a ferritin: 1701 Check B12 and folate levels: 560/16.3. Check LDH: 348. Check an SIEP. I checked the type and screen but fortunately she did not need a transfusion today. Check EPO level: 7. Will start her on Procrit therapy for CKD. Will continue that Q 2 weekly, initially. All her questions were answered to her satisfaction. She will return in 6 weeks for a follow-up visit. Thank you, CC: Sadi Harden MD. - Time Spent With Patient Time Spent with Patient (in minutes): 30
--- NOTE | 2024-05-19 09:52 | HO.HEMONCPA ---
NO PA REQUIIRED FOR BCR/ABL [id number] & [id number] PER [facility]
--- NOTE | 2024-05-19 09:58 | HO.HEMONCPA ---
[id number] AUTH # [id number] DOS 05/19/24 - 05/19/25 FOR 24 DOSES AT 40,000 UNITS EVERY 2 WEEKS
[2024-05-19 10:10] LABS: Baso%MD 0.5 %; Eos%MD 4.1 %; Hematocrit 28.5 % (37.0-47.0); IG%MD 0.7 %; Lymph%MD 10.2 %; Mean Corpuscular HGB Conc 31.6 g/dl (31.0-35.0); Mean Corpuscular Hemoglobin 30.4 pg (27.0-33.0); Mean Corpuscular Volume 96.3 fL (80.0-98.0); Mean Platelet Volume 9.6 fL (9.4-12.3); Mono%MD 6.3 %; Neut%MD 78.2 %; Platelet Count 351 X10*3/uL (160-400); Red Blood Count 2.96 X10*6/uL (4.20-5.50); Red Cell Distribution Width 14.3 % (11.0-16.0); White Blood Count 10.6 X10*3/uL (4.8-10.8)
[2024-05-19] MEDS: Epoetin Alfa 40,000 UNIT/ML VIAL 40000 UNIT SUBCUT (10:30)
[2024-05-19 10:36] LABS: Alanine Aminotransferase 13 U/L (0-31); Alkaline Phosphatase 119 U/L (39-117); Anion Gap 13 (12-20); Aspartate Amino Transferase 18 U/L (5-31); Bilirubin Total 0.2 mg/dL (0.0-1.0); Blood Urea Nitrogen 62 mg/dL (9-16); Calcium 9.2 mg/dL (8.4-10.2); Carbon Dioxide 22 mmol/L (22-29); Chloride 111 mmol/L (96-108); Creatinine Clr Calc Pharmacy 17.3; Estimated Glomerular Filt Rate 13; Glucose Random 162 mg/dL (60-115); Lactate Dehydrogenase 348 U/L (122-220); Sodium 141 mmol/L (135-145); Total Protein 6.7 g/dL (6.5-8.0)
--- NOTE | 2024-05-19 10:36 | MHC.HEMONC ---
Pt here for q 2 week Procrit injection (RADHA verma 05/19/25) Labs drawn by stiff leg operator-specimen to lab. H & H 9.0/28.5/351 Procrit 34709 units sc given in right arm per pt request-tolerated well-no edema or redness at site after injection. Next appointment scheduled-calendar given
[2024-05-19 10:56] LABS: Band Neutrophils Percent 0 % (3-5); Basophils Abs Manual 0.2 X10*3/uL (0.0-0.2); Basophils Percent Manual 2 % (0-2); Eosinophils Absolute Manual 0.7 X10*3/uL (0.0-0.4); Eosinophils Percent Manual 7 % (0-4); Lymphocytes Absolute Manual 1.5 X10*3/uL (1.2-4.9); Lymphocytes Percent Manual 14 % (20-40); Monocytes Absolute Manual 0.2 X10*3/uL (0.1-1.2); Monocytes Percent Manual 2 % (2-11); Neutrophils Percent Manual 75 % (45-73)
[2024-05-19 10:59] LABS: Platelet Estimate NORMAL (NORMAL); Platelet Morphology Comment NORMAL; RBC Morphology NORMAL
[2024-05-19 11:03] LABS: Folate 16.3 ng/mL (> or = 4.0); Vitamin B12 560 pg/mL (200-900)
[2024-05-19 11:30] LABS: Ferritin 1701 ng/mL (10-250)
[2024-05-22 13:33] LABS: IgA 268 mg/dL (70-320); IgG 1110 mg/dL (600-1540); IgM 27 mg/dL (50-300)
[2024-06-02 14:00] LABS: MANUAL DIFF FLAG NO
[2024-06-02 14:13] LABS: Basophils Absolute Auto 0.1 X10*3/uL (0.0-0.2); Basophils Percent Auto 0.8 % (0-2); Eosinophils Absolute Auto 0.3 X10*3/uL (0.0-0.4); Eosinophils Percent Auto 3.3 % (0-4); Hematocrit 31.1 % (37.0-47.0); Hemoglobin 9.7 g/dl (12.0-16.0); Imm Gran Abs Auto 0.02 X10*3/uL (0.00-0.03); Imm Gran Pct Auto 0.2 % (0.0-0.4); Lymphocytes Absolute Auto 0.8 X10*3/uL (1.2-4.9); Lymphocytes Percent Auto 9.7 % (20-40); Mean Corpuscular HGB Conc 31.2 g/dl (31.0-35.0); Mean Corpuscular Volume 96.3 fL (80.0-98.0); Mean Platelet Volume 9.8 fL (9.4-12.3); Monocytes Absolute Auto 0.6 X10*3/uL (0.1-1.2); Monocytes Percent Auto 6.7 % (2-11); Neutrophils Absolute Auto 6.8 x10*3/uL (2.0-8.3); Neutrophils Percent Auto 79.3 % (45-73); Platelet Count 341 X10*3/uL (160-400); Red Blood Count 3.23 X10*6/uL (4.20-5.50); Red Cell Distribution Width 15.1 % (11.0-16.0); White Blood Count 8.6 X10*3/uL (4.8-10.8)
[2024-06-02 14:27] VITALS: BP 120/64; PULSE 71; RESP 18; TEMP 36.1; O2SAT 96
[2024-06-02] MEDS: Epoetin Alfa 40,000 UNIT/ML VIAL 40000 UNIT SUBCUT (14:31)
--- NOTE | 2024-06-02 17:26 | MHC.HEMONC ---
Pt was in for Q2week Procrit injection, nurse verified PA, labs drawn/reviewed, Hgb improved to 9.7 today, pt's VSS, Dr. Dunne updated. Nurse admin procrit 40,000 units SC to pt's LUE, which was well-tolerated. Pt was given calendar of lab results and next appt, to return in 2 weeks, departed via w/c.
[2024-06-12 15:52] LABS: MANUAL DIFF FLAG NO
[2024-06-12 15:56] LABS: Basophils Absolute Auto 0.1 X10*3/uL (0.0-0.2); Eosinophils Absolute Auto 0.5 X10*3/uL (0.0-0.4); Eosinophils Percent Auto 4.7 % (0-4); Hematocrit 31.5 % (37.0-47.0); Hemoglobin 9.8 g/dl (12.0-16.0); Imm Gran Abs Auto 0.07 X10*3/uL (0.00-0.03); Imm Gran Pct Auto 0.7 % (0.0-0.4); Lymphocytes Absolute Auto 1.1 X10*3/uL (1.2-4.9); Mean Corpuscular HGB Conc 31.1 g/dl (31.0-35.0); Mean Corpuscular Hemoglobin 30.4 pg (27.0-33.0); Mean Corpuscular Volume 97.8 fL (80.0-98.0); Mean Platelet Volume 9.7 fL (9.4-12.3); Monocytes Absolute Auto 0.7 X10*3/uL (0.1-1.2); Monocytes Percent Auto 6.9 % (2-11); NRBC Pct Auto 0.2 /100WBC (0.0-0.2); Neutrophils Absolute Auto 7.4 x10*3/uL (2.0-8.3); Neutrophils Percent Auto 75.7 % (45-73); Platelet Count 357 X10*3/uL (160-400); Red Blood Count 3.22 X10*6/uL (4.20-5.50); Red Cell Distribution Width 15.7 % (11.0-16.0); White Blood Count 9.7 X10*3/uL (4.8-10.8)
--- NOTE | 2024-06-12 16:19 | MHC.HEMONC ---
Pt was in for pre-procrit CBC lab draw, had labs drawn/reviewed, asked to syat to wait for results to see if she needs to return on 06/15 for Q2week procrit inj. Pt's Hgb resulted 9.8, was 9.7 2 weeks ago when she received 2nd dose of procrit 40,000 units. Pt was disappointed, but nurse assured her that improvements sometimes can take larger quantity of doses before manifesting. Pt was given copy of lab results, to return 06/15 for procrit inj.
[2024-06-15 08:53] VITALS: BP 122/59; PULSE 70
[2024-06-15] MEDS: Epoetin Alfa 40,000 UNIT/ML VIAL 40000 UNIT SUBCUT (08:55)
[2024-06-29 16:02] LABS: MANUAL DIFF FLAG NO
[2024-06-29 16:05] LABS: Basophils Absolute Auto 0.1 X10*3/uL (0.0-0.2); Basophils Percent Auto 0.5 % (0-2); Eosinophils Absolute Auto 0.4 X10*3/uL (0.0-0.4); Eosinophils Percent Auto 3.3 % (0-4); Hematocrit 34.5 % (37.0-47.0); Hemoglobin 10.7 g/dl (12.0-16.0); Imm Gran Abs Auto 0.05 X10*3/uL (0.00-0.03); Imm Gran Pct Auto 0.4 % (0.0-0.4); Lymphocytes Absolute Auto 0.9 X10*3/uL (1.2-4.9); Lymphocytes Percent Auto 7.9 % (20-40); Mean Corpuscular Hemoglobin 30.2 pg (27.0-33.0); Mean Corpuscular Volume 97.5 fL (80.0-98.0); Monocytes Absolute Auto 0.7 X10*3/uL (0.1-1.2); Monocytes Percent Auto 5.8 % (2-11); Neutrophils Absolute Auto 9.3 x10*3/uL (2.0-8.3); Neutrophils Percent Auto 82.1 % (45-73); Platelet Count 339 X10*3/uL (160-400); Red Blood Count 3.54 X10*6/uL (4.20-5.50); Red Cell Distribution Width 15.6 % (11.0-16.0); White Blood Count 11.3 X10*3/uL (4.8-10.8)
--- NOTE | 2024-06-29 16:54 | MHC.HEMONC ---
Pt was in today for pre-procrit lab draw, had blood drawn peripherally, results reviewed, Hgb resulted 10.7. Nurse called pt at home. no answer, left detailed VM explaining that she is not indicated to receive procrit tomorrow w/ Hgb above 10.5, however if she is fatigued or otherwise symptomatic, per Dr. Dunne, she may receive the procrit inj w/ Hgb below 11.0. Nurse requested CB to confirm whether pt would like to attend the appt or not, left CB#.
[2024-07-28 13:31] VITALS: BP 191/85; PULSE 74; O2SAT 99
[2024-07-28 13:34] LABS: Basophils Absolute Auto 0.1 X10*3/uL (0.0-0.2); Basophils Percent Auto 0.7 % (0-2); Eosinophils Absolute Auto 0.6 X10*3/uL (0.0-0.4); Eosinophils Percent Auto 5.1 % (0-4); Hemoglobin 9.4 g/dl (12.0-16.0); Imm Gran Abs Auto 0.05 X10*3/uL (0.00-0.03); Imm Gran Pct Auto 0.5 % (0.0-0.4); Lymphocytes Absolute Auto 1.2 X10*3/uL (1.2-4.9); Lymphocytes Percent Auto 11.1 % (20-40); MANUAL DIFF FLAG NO; Mean Corpuscular HGB Conc 31.3 g/dl (31.0-35.0); Mean Corpuscular Hemoglobin 30.1 pg (27.0-33.0); Mean Corpuscular Volume 96.2 fL (80.0-98.0); Mean Platelet Volume 9.7 fL (9.4-12.3); Monocytes Absolute Auto 0.8 X10*3/uL (0.1-1.2); Monocytes Percent Auto 7.5 % (2-11); Neutrophils Absolute Auto 8.3 x10*3/uL (2.0-8.3); Neutrophils Percent Auto 75.1 % (45-73); Platelet Count 389 X10*3/uL (160-400); Red Blood Count 3.12 X10*6/uL (4.20-5.50); Red Cell Distribution Width 15.2 % (11.0-16.0); White Blood Count 11.1 X10*3/uL (4.8-10.8)
[2024-07-28 13:56] LABS: Alanine Aminotransferase 13 U/L (0-31); Alkaline Phosphatase 116 U/L (39-117); Anion Gap 15 (12-20); Aspartate Amino Transferase 16 U/L (5-31); Bilirubin Total 0.2 mg/dL (0.0-1.0); Blood Urea Nitrogen 81 mg/dL (9-16); Calcium 8.8 mg/dL (8.4-10.2); Carbon Dioxide 21 mmol/L (22-29); Chloride 113 mmol/L (96-108); Creatinine Clr Calc Pharmacy 15.4; Estimated Glomerular Filt Rate 11; Glucose Random 220 mg/dL (60-115); Potassium 5.5 mmol/L (3.3-5.1); Sodium 143 mmol/L (135-145); Total Protein 6.4 g/dL (6.5-8.0)
[2024-07-28] MEDS: Epoetin Alfa 40,000 UNIT/ML VIAL 40000 UNIT SUBCUT (14:10)
--- NOTE | 2024-07-28 14:16 | PM.HEMONCPN ---
Medical Summary - Medical Summary Date of Service: 07/28/24 Chief complaint: Follow-up for: Anemia of chronic disease due to stage 4 kidney disease. Primary Care Provider: Sadi Harden MD Medical Summary: DIAGNOSIS: NORMOCHROMIC NORMOCYTIC ANEMIA. CURRENT THERAPY: Procrit 86264 units q 2 weekly. Interval History Interval history: Amaris Hook is a 69 year old lady, here for a follow-up visit. Her energy level has been pretty good. Only thing is her blood pressure was rather elevated today. She has no complaints. No fever chills or night sweats. She denies headache no dizziness. She denies chest pain. She has shortness of breath. She denies abdominal pain. She gets occasional heartburn. She gets occasional nausea. No vomiting. She denies any bowel complaints. No gross blood in the stools. She had an upper endoscopy and colonoscopy in July which were benign. Appetite is good. She denies weight loss. She has CKD, stage IV. She sees Dr. Evans in [place]. She denies any joint pain or muscle pain. Denies any focal weakness. She has history of depression. She is on venlafaxine. No skin rashes no pruritus. PRESENTING HISTORY: She was referred by Dr. Sadi Harden on account of anemia. She tells me she has had anemia all her life. She did need a blood transfusion in March. From 04/17: CBC: WBC 12.3, HGB 7.4, HCT 24.5, MCV 98.8, PLT 326. Review of previous labs: 04/13 HGB 7.2. 02/14. HGB 8.4. 08/29/2023. HGB 9.6. 8/21. HGB 8.3. PAST MEDICAL HISTORY: 1. Hypertension. 2. Diabetes. 3. CKD stage 4. 4. CHF and pulmonary fibrosis. She sees Dr. Morillo. FAMILY HISTORY: Mom of a stroke at 67. A brother had a head injury and had a stroke. 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 She has been for 19 years. She has 2 sons. She tried smoking at the age of 18. Denies alcohol. Review of Systems - Constitutional Reports system reviewed and no additional complaints, except as documented, Denies lack of energy, Denies weight loss - Eyes Reports system reviewed and no additional complaints, except as documented - ENT Reports system reviewed and no additional complaints, except as documented - Cardiovascular Reports system reviewed and no additional complaints, except as documented - Respiratory Reports no additional respiratory complaints - Gastrointestinal Reports system reviewed and no additional complaints, except as documented - Genitourinary Reports no additional female genitourinary complaints - Musculoskeletal Reports system reviewed and no additional complaints, except as documented - Integumentary/Breasts Skin/Breast: Reports no additional skin complaints - Neurologic Reports system reviewed and no additional complaints, except as documented - Psychiatric Reports system reviewed and no additional complaints, except as documented - Endocrine Reports no additional endocrine complaints - Hematologic/Lymphatic Reports system reviewed and no additional complaints, except as documented - Allergic/Immunologic Reports system reviewed and no additional complaints, except as documented PMFSH Medical History: Medical History (Last Reviewed 07/28/24 @ 13:30 by Braxton Alan) Acute renal failure Anemia Atrial flutter CAP (community acquired pneumonia) Chronic renal failure Congestive heart failure Cough Diabetes type 2, controlled Diabetes type 2, uncontrolled Elevated creatine kinase Elevated serum creatinine Exercise hypoxemia Heme positive stool High cholesterol HTN (hypertension) Hypertension, essential Interstitial lung disease Morbid (severe) obesity due to excess calories Morbid obesity Morbid obesity due to excess calories MRSA carrier Nocturnal hypoxemia Obesity AMY (obstructive sleep apnea) AMY on CPAP Oxygen dependent Pneumonia Respiratory failure with hypoxia Secondary aldosteronism Functional capacity: uses cane/walker Patient : No Family History: Family History (Last Reviewed 07/28/24 @ 13:30 by Braxton Alan) Father Stroke Mother Stroke Hypertension Diabetes Maternal Grandmother Diabetes Hypertension Stroke Sister Diabetes Breast cancer Son Bipolar 1 disorder Overweight Other Mental health problem Substance abuse Surgical History: Surgical History (Last Reviewed 07/28/24 @ 13:30 by Braxton Alan) History of D&C History of surgery Social History: Social History (Last Reviewed 07/28/24 @ 13:30 by Braxton Alan) Living Situation History: Household Members: Children Housing: House Do you presently have visiting nurse or other home services: No Alcohol History: Unable to assess alcohol history related to: Unable to respond Alcohol History Details: 1. How often do you have a drink containing alcohol?: a. Never Tobacco History: Patient Tobacco Use Status: Former Tobacco user e-Cigarette/Vaping Use: Never Used Second Hand Smoke Exposure: No Substance Use History: Use of substances other than those prescribed or required for medical reasons: No Domestic Abuse History: Have you been hit, kicked, punched, or otherwise hurt by someone within the past year? If so, by whom?: No Do you feel safe in your current relationship?: Yes Advance Directives: Advance Directives Date on File: 06/09/21 Homicidal Assessment: Do you have thoughts of harming others: None Do you have a plan to hurt others: No Plan Nutrition Assessment: Patient : No Occupation Assessmet: service: No Current occupational status: retired Oncology Screenings - ECOG Performance Status ECOG Performance Status: 0 Home Medications and Allergies Current Medications: Current Medications Epoetin Derick (Epoetin Derick 40,000 Unit/Ml Vial) 40,000 unit SUBCUT ONCE LORRIE Stop: 07/28/24 23:59 Last Admin: 07/28/24 14:10 Dose: 40,000 unit Home Medications ?Medication ?Instructions ?Recorded ?Confirmed ?Type ascorbic acid (vitamin C) 500 mg 500 mg PO DAILY 09/22/20 07/28/24 History tablet fexofenadine 180 mg tablet 180 mg PO DAILY 09/22/20 07/28/24 History multivitamin 1 tab PO DAILY 09/12/22 07/28/24 History ferrous sulfate 325 mg (65 mg 325 mg PO DAILY 11/27/22 07/28/24 History iron) tablet insulin lispro 100 unit/mL See Rx Instructions subcut QID 08/01/23 07/28/24 History subcutaneous pen sodium polystyrene sulfonate 15 g PO 3XW 08/01/23 07/28/24 History venlafaxine 75 mg capsule,extended 75 mg PO DAILY 02/03/24 07/28/24 History release 24 hr venlafaxine 37.5 mg 37.5 mg PO ONCE 06/30/24 07/28/24 History capsule,extended release 24 hr (Effexor XR) Allergies Allergy/AdvReac Type Severity Reaction Status Date / Time penicillin V Allergy Severe joint Verified 07/28/24 13:30 swelling and rash amlodipine [From [facility]] AdvReac Intermediate edema Verified 07/28/24 13:30 Exam Vital signs: Vital Signs Temp 97.0 F 06/02/24 14:27 Pulse 74 07/28/24 13:31 Resp 18 06/02/24 14:27 BP 191/85 H 07/28/24 13:31 Pulse Ox 99 07/28/24 13:31 O2 Del Method Room Air 07/28/24 13:31 O2 Flow Rate 2 06/02/24 14:27 Weight 109.3 kg BMI result Body Mass Index 44.1 - Constitutional Present: no acute distress - Routine HEENT Exam Head: Present: normal inspection Eye: Present: normal appearance ENT: Present: mucous membranes moist - Routine Neck Exam Present: full ROM - Routine Respiratory Exam Present: CTAB - Routine Cardiovascular Exam Cardiovascular: Present: RRR, S1, S2 - Routine Abdominal Exam Present: soft, nontender - Routine Rectal Exam Patient deferred: digital exam - Routine Extremities Exam Present: nontender - Routine Back/Spine/Pelvis Exam Back/Spine: Present: full ROM - Routine Skin Exam Present: intact - Routine Neurological Exam Present: alert, oriented X3 - Routine Psychiatric Exam Present: normal affect Data - Labs CBC & Chem 7: 07/28/24 13:28 07/28/24 13:28 Labs: Laboratory Last Values WBC 11.1 X10*3/uL (4.8-10.8) H 07/28/24 13:28 RBC 3.12 X10*6/uL (4.20-5.50) L 07/28/24 13:28 Hgb 9.4 g/dl (12.0-16.0) L 07/28/24 13:28 Hct 30.0 % (37.0-47.0) L 07/28/24 13:28 MCV 96.2 fL (80.0-98.0) 07/28/24 13:28 MCH 30.1 pg (27.0-33.0) 07/28/24 13:28 MCHC 31.3 g/dl (31.0-35.0) 07/28/24 13: RDW 15.2 % (11.0-16.0) 07/28/24 13:28 Plt Count 389 X10*3/uL (160-400) 07/28/24 13:28 MPV 9.7 fL (9.4-12.3) 07/28/24 13:28 Immature Gran % (Auto) 0.5 % (0.0-0.4) H 07/28/24 13:28 Neut % (Auto) 75.1 % (45-73) H 07/28/24 13:28 Lymph % (Auto) 11.1 % (20-40) L 07/28/24 13:28 [place] % (Auto) 7.5 % (2-11) 07/28/24 13:28 Eos % (Auto) 5.1 % (0-4) H 07/28/24 13:28 Baso % (Auto) 0.7 % (0-2) 07/28/24 13:28 Lymph # (Auto) 1.2 X10*3/uL (1.2-4.9) 07/28/24 13:28 [place] # (Auto) 0.8 X10*3/uL (0.1-1.2) 07/28/24 13:28 Eos # (Auto) 0.6 X10*3/uL (0.0-0.4) H 07/28/24 13:28 Baso # (Auto) 0.1 X10*3/uL (0.0-0.2) 07/28/24 13:28 Abs Immat Gran (auto) 0.05 X10*3/uL (0.00-0.03) H 07/28/24 13:28 Absolute Neuts (auto) 8.3 x10*3/uL (2.0-8.3) 07/28/24 13:28 Absolute Nucleated RBC 0.000 X10*3/uL (0.0-0.012) 07/28/24 13:28 Nucleated RBC % (auto) 0.0 /100WBC (0.0-0.2) 07/28/24 13:28 Neutrophils % (Manual) 75 % (45-73) H 05/19/24 10:01 Band Neutrophils % 0 % (3-5) L 05/19/24 10:01 Lymphocytes % (Manual) 14 % (20-40) L 05/19/24 10:01 Monocytes % (Manual) 2 % (2-11) 05/19/24 10:01 Eosinophils % (Manual) 7 % (0-4) H 05/19/24 10:01 Basophils % (Manual) 2 % (0-2) 05/19/24 10:01 Abs Neuts (Manual) 8.0 X10*3/uL (2.0-8.3) 05/19/24 10:01 Lymphocytes # (Manual) 1.5 X10*3/uL (1.2-4.9) 05/19/24 10:01 Monocytes # (Manual) 0.2 X10*3/uL (0.1-1.2) 05/19/24 10:01 Eosinophils # (Manual) 0.7 X10*3/uL (0.0-0.4) H 05/19/24 10:01 Basophils # (Manual) 0.2 X10*3/uL (0.0-0.2) 05/19/24 10:01 Platelet Estimate NORMAL (NORMAL) 05/19/24 10:01 Plt Morphology Comment NORMAL 05/19/24 10:01 RBC Morphology NORMAL 05/19/24 10:01 Sodium 143 mmol/L (135-145) 07/28/24 13:28 Potassium 5.5 mmol/L (3.3-5.1) H 07/28/24 13:28 Chloride 113 mmol/L (96-108) H 07/28/24 13:28 Carbon Dioxide 21 mmol/L (22-29) L 07/28/24 13:28 Anion Gap 15 (12-20) 07/28/24 13:28 BUN 81 mg/dL (9-16) H 07/28/24 13:28 Creatinine 3.95 mg/dL (0.5-1.4) H 07/28/24 13:28 Estim Creat Clear Calc 15.4 07/28/24 13:28 Estimated GFR 11 07/28/24 13:28 Random Glucose 220 mg/dL (60-115) H 07/28/24 13:28 Calcium 8.8 mg/dL (8.4-10.2) 07/28/24 13:28 Erythropoietin 7.0 mIU/mL (2.6-18.5) 05/19/24 10:01 Ferritin 1701 ng/mL (10-250) H 05/19/24 10:01 Total Bilirubin 0.2 mg/dL (0.0-1.0) 07/28/24 13:28 AST 16 U/L (5-31) 07/28/24 13:28 ALT 13 U/L (0-31) 07/28/24 13:28 Alkaline Phosphatase 116 U/L (39-117) 07/28/24 13:28 Lactate Dehydrogenase 348 U/L (122-220) H 05/19/24 10:01 Total Protein 6.4 g/dL (6.5-8.0) L 07/28/24 13:28 Albumin 3.0 g/dL (3.5-5.0) L 07/28/24 13:28 Vitamin B12 560 pg/mL (200-900) 05/19/24 10:01 Folate 16.3 ng/mL (> or = 4.0) 05/19/24 10:01 Hold Yellow Top See Note 07/28/24 13:28 IgG Total 1110 mg/dL (600-1540) 05/19/24 10:01 IgA Total 268 mg/dL (70-320) 05/19/24 10:01 IgM 27 mg/dL (50-300) L 05/19/24 10:01 JERE Interpretation SEE NOTE 05/19/24 10:01 BCR/abl Interp & Reprt See Note 05/19/24 10:01 Blood Type O Positive 05/19/24 09:57 Antibody Screen NEGATIVE 05/19/24 09:57 Assessment and Plan Patient Active problem list reviewed?: Yes (1) Anemia Status: Acute Assessment and plan: This is a pleasant 69-year-old lady with a history of chronic normochromic normocytic anemia, although the recent indices were a little macrocytic. DIFFERENTIAL DIAGNOSIS: 1. ANEMIA OF CHRONIC DISEASE: This is most likely. He does have underlying CKD stage 4. She follows with renal. 2. B12/FOLATE DEFICIENCY: Is also a possibility. 3. IRON DEFICIENCY ANEMIA; is not likely. Iron Studies: . She has an elevated ferritin level. 4. HEMOLYTIC ANEMIA: Is in the differential. 5. UNDERLYING MYELO INFILTRATIVE DISORDER: MDS can be associated with elevated MCV. Lymphoma versus multiple myeloma I proceeded with further evaluation. l checked CBCD: WBC 10.6, HGB 9, HCT 28.5, MCV 96.3, PLT 351. Checked iron studies and a ferritin: 1701 Checked B12 and folate levels: 560/16.3. Checked LDH: 348. Checked an SIEP. I checked the type and screen but fortunately she did not need a transfusion. Checked EPO level: 7. She was started her on Procrit therapy for CKD. Her energy level has improved. Hemoglobin did go up. Today's hemoglobin: 9.4. Ferritin: 1765. PLAN: Will continue the Procrit Q 2 weekly. Will follow-up on her iron studies as well. She will return in 3 months for a follow-up visit. All her questions were answered to her satisfaction. Thank you, CC: Sadi Harden MD. - Time Spent With Patient Time Spent with Patient (in minutes): 25
--- NOTE | 2024-07-28 14:42 | MHC.HEMONC ---
Pt here for q 2 week Procrit injection ( RADHA LIND TIL 05/19/25) Labs drawn by account engineer-specimen to lab. H & H 9.4.0/platelets 38.9 Procrit 40,000 units given sc in left arm-tolerated well. No edema or redness at site after injection. Next appointment scheduled-calendar given
[2024-07-28 14:55] LABS: Ferritin 1765 ng/mL (10-250)
[2024-08-11 15:37] LABS: MANUAL DIFF FLAG NO
[2024-08-11 15:42] LABS: Basophils Absolute Auto 0.1 X10*3/uL (0.0-0.2); Basophils Percent Auto 0.7 % (0-2); Eosinophils Absolute Auto 0.5 X10*3/uL (0.0-0.4); Eosinophils Percent Auto 4.6 % (0-4); Hematocrit 29.9 % (37.0-47.0); Hemoglobin 9.2 g/dl (12.0-16.0); Imm Gran Abs Auto 0.05 X10*3/uL (0.00-0.03); Imm Gran Pct Auto 0.5 % (0.0-0.4); Lymphocytes Absolute Auto 0.9 X10*3/uL (1.2-4.9); Lymphocytes Percent Auto 8.7 % (20-40); Mean Corpuscular HGB Conc 30.8 g/dl (31.0-35.0); Mean Corpuscular Hemoglobin 29.7 pg (27.0-33.0); Mean Corpuscular Volume 96.5 fL (80.0-98.0); Mean Platelet Volume 10.1 fL (9.4-12.3); Monocytes Absolute Auto 0.6 X10*3/uL (0.1-1.2); Monocytes Percent Auto 5.8 % (2-11); Neutrophils Absolute Auto 8.2 x10*3/uL (2.0-8.3); Neutrophils Percent Auto 79.7 % (45-73); Platelet Count 314 X10*3/uL (160-400); Red Cell Distribution Width 16.4 % (11.0-16.0); White Blood Count 10.3 X10*3/uL (4.8-10.8)
[2024-08-11 15:55] VITALS: BP 134/60; PULSE 75; RESP 18; TEMP 36; O2SAT 100
--- NOTE | 2024-08-11 15:56 | MHC.HEMONC ---
Pt here for q 2 week Procrit injection (PA APPROVED FROM 05/19/24-05/19/25) Labs drawn by cnc milling machine operator-specimen to lab. H & H 9.2/29.9/platelets 314. Procrit 40,000 units given sc left arm-tolerated well. No edema or redness at site after injection. Next appointment scheduled-calendar given
[2024-08-11] MEDS: Epoetin Alfa 40,000 UNIT/ML VIAL 40000 UNIT SUBCUT (15:58)
[2024-08-25 15:12] LABS: MANUAL DIFF FLAG NO
[2024-08-25 15:23] LABS: Basophils Absolute Auto 0.1 X10*3/uL (0.0-0.2); Basophils Percent Auto 0.7 % (0-2); Eosinophils Absolute Auto 0.3 X10*3/uL (0.0-0.4); Eosinophils Percent Auto 2.9 % (0-4); Hematocrit 32.2 % (37.0-47.0); Imm Gran Abs Auto 0.06 X10*3/uL (0.00-0.03); Imm Gran Pct Auto 0.5 % (0.0-0.4); Lymphocytes Absolute Auto 0.9 X10*3/uL (1.2-4.9); Lymphocytes Percent Auto 7.6 % (20-40); Mean Corpuscular HGB Conc 31.1 g/dl (31.0-35.0); Mean Corpuscular Volume 96.7 fL (80.0-98.0); Mean Platelet Volume 10.2 fL (9.4-12.3); Monocytes Absolute Auto 0.8 X10*3/uL (0.1-1.2); Monocytes Percent Auto 6.8 % (2-11); Neutrophils Absolute Auto 9.2 x10*3/uL (2.0-8.3); Neutrophils Percent Auto 81.5 % (45-73); Platelet Count 345 X10*3/uL (160-400); Red Blood Count 3.33 X10*6/uL (4.20-5.50); Red Cell Distribution Width 16.6 % (11.0-16.0); White Blood Count 11.3 X10*3/uL (4.8-10.8)
[2024-08-25] MEDS: Epoetin Alfa 40,000 UNIT/ML VIAL 40000 UNIT SUBCUT (15:35)
[2024-08-25 15:50] VITALS: BP 137/63; RESP 69
--- NOTE | 2024-08-25 15:51 | MHC.HEMONC ---
Pt here for q 2 week Procrit injection (RADHA APPROVED FROM 05/19/24-05/19/25) Labs drawn by certified diabetes educator-specimen to lab. HGB 10.0 Procrit 40,000 units given sc left arm-tolerated well. No edema or redness at site after injection. Next appointment scheduled-calendar given. Patient departed via wheelchair with family.
[2024-09-08 13:14] LABS: MANUAL DIFF FLAG NO
[2024-09-08 13:19] LABS: Basophils Percent Auto 0.5 % (0-2); Eosinophils Absolute Auto 0.3 X10*3/uL (0.0-0.4); Eosinophils Percent Auto 3.3 % (0-4); Hematocrit 34.4 % (37.0-47.0); Hemoglobin 10.4 g/dl (12.0-16.0); Imm Gran Abs Auto 0.02 X10*3/uL (0.00-0.03); Imm Gran Pct Auto 0.2 % (0.0-0.4); Lymphocytes Absolute Auto 1.2 X10*3/uL (1.2-4.9); Lymphocytes Percent Auto 13.1 % (20-40); Mean Corpuscular HGB Conc 30.2 g/dl (31.0-35.0); Mean Corpuscular Hemoglobin 29.4 pg (27.0-33.0); Mean Corpuscular Volume 97.2 fL (80.0-98.0); Mean Platelet Volume 9.7 fL (9.4-12.3); Monocytes Absolute Auto 0.8 X10*3/uL (0.1-1.2); Monocytes Percent Auto 8.5 % (2-11); Neutrophils Absolute Auto 6.6 x10*3/uL (2.0-8.3); Neutrophils Percent Auto 74.4 % (45-73); Platelet Count 310 X10*3/uL (160-400); Red Blood Count 3.54 X10*6/uL (4.20-5.50); White Blood Count 8.8 X10*3/uL (4.8-10.8)
[2024-09-08 13:57] VITALS: BP 130/63; PULSE 71; RESP 18; TEMP 36.6; O2SAT 97
[2024-09-08] MEDS: Epoetin Alfa 40,000 UNIT/ML VIAL 40000 UNIT SUBCUT (13:59)
--- NOTE | 2024-09-08 14:04 | MHC.HEMONC ---
Pt here for q 2 week Procrit injection (PA APPROVED FROM 05/19/24-05/19/25) Labs drawn by security systems integrator-specimen to lab. H & H 10.4/34.4 platelets 310. Procrit 40,000 units given sc left arm-tolerated well. No edema or redness at site after injection. Next appointment scheduled-calendar given
[2024-09-22 15:38] LABS: Basophils Absolute Auto 0.1 X10*3/uL (0.0-0.2); Basophils Percent Auto 0.7 % (0-2); Eosinophils Absolute Auto 0.3 X10*3/uL (0.0-0.4); Eosinophils Percent Auto 3.5 % (0-4); Hematocrit 31.6 % (37.0-47.0); Hemoglobin 9.6 g/dl (12.0-16.0); Imm Gran Abs Auto 0.05 X10*3/uL (0.00-0.03); Imm Gran Pct Auto 0.5 % (0.0-0.4); Lymphocytes Percent Auto 10.8 % (20-40); MANUAL DIFF FLAG NO; Mean Corpuscular HGB Conc 30.4 g/dl (31.0-35.0); Mean Corpuscular Hemoglobin 29.4 pg (27.0-33.0); Mean Corpuscular Volume 96.6 fL (80.0-98.0); Mean Platelet Volume 10.3 fL (9.4-12.3); Monocytes Absolute Auto 0.7 X10*3/uL (0.1-1.2); Neutrophils Absolute Auto 7.4 x10*3/uL (2.0-8.3); Neutrophils Percent Auto 77.5 % (45-73); Platelet Count 328 X10*3/uL (160-400); Red Blood Count 3.27 X10*6/uL (4.20-5.50); Red Cell Distribution Width 16.9 % (11.0-16.0); White Blood Count 9.6 X10*3/uL (4.8-10.8)
[2024-09-22] MEDS: Epoetin Alfa 40,000 UNIT/ML VIAL 40000 UNIT SUBCUT (16:32)
[2024-09-22 16:51] VITALS: BP 200/93; PULSE 90; RESP 18; TEMP 36.4; O2SAT 99
--- NOTE | 2024-09-22 16:52 | MHC.HEMONC ---
Pt was in today for Q2week Procrit injection, nurse verified PA, labs drawn/reviewed, Hgb down to 9.6 today, pt hypertensive w/ seated BP of 200/93, stated she is due for her evening dose of hydralazine and furosemide, Dr. Dunne updated. Nurse admin procrit 40,000 units SC to pt's RUE, which was well-tolerated. Pt was given calendar of lab results and next appt, to return in 2 weeks, departed via w/c.
[2024-11-19 15:01] LABS: MANUAL DIFF FLAG NO
[2024-11-19 15:07] LABS: Basophils Absolute Auto 0.1 X10*3/uL (0.0-0.2); Basophils Percent Auto 0.6 % (0-2); Eosinophils Absolute Auto 0.4 X10*3/uL (0.0-0.4); Eosinophils Percent Auto 3.2 % (0-4); Hematocrit 26.6 % (37.0-47.0); Hemoglobin 7.8 g/dl (12.0-16.0); Imm Gran Abs Auto 0.06 X10*3/uL (0.00-0.03); Imm Gran Pct Auto 0.5 % (0.0-0.4); Lymphocytes Absolute Auto 1.2 X10*3/uL (1.2-4.9); Lymphocytes Percent Auto 9.6 % (20-40); Mean Corpuscular HGB Conc 29.3 g/dl (31.0-35.0); Mean Corpuscular Volume 98.9 fL (80.0-98.0); Monocytes Absolute Auto 0.7 X10*3/uL (0.1-1.2); Monocytes Percent Auto 5.8 % (2-11); Neutrophils Percent Auto 80.3 % (45-73); Platelet Count 335 X10*3/uL (160-400); Red Blood Count 2.69 X10*6/uL (4.20-5.50); Red Cell Distribution Width 16.1 % (11.0-16.0); White Blood Count 12.5 X10*3/uL (4.8-10.8)
[2024-11-19] MEDS: Epoetin Alfa 40,000 UNIT/ML VIAL 40000 UNIT SUBCUT (15:37)
[2024-11-19 15:51] VITALS: BP 154/67; PULSE 63; RESP 20; TEMP 35.8; O2SAT 100
--- NOTE | 2024-11-19 15:58 | MHC.HEMONC ---
Addendum entered by Keely Villafana RN 11/19/24 16:03: Creatinine 4.[address] Dunne Original Note: Here for q2 week procrit. Hgb 7.[address] Dunne. Pt denies sob, dizziness. Discussed possible transfusion, but pt declines stating she feels wonderful . Procrit 40,000units given right arm and tolerated well. Pt scheduled for next procrit on 12/01, and will call if any problems before that. Calendar given and pt departed via wheelchair.
[2024-11-19 15:59] LABS: Alanine Aminotransferase < 6 U/L (0-31); Albumin Level 3.1 g/dL (3.5-5.0); Anion Gap 16 (12-20); Aspartate Amino Transferase 20 U/L (5-31); Bilirubin Total 0.2 mg/dL (0.0-1.0); Blood Urea Nitrogen 67 mg/dL (9-16); Calcium 8.6 mg/dL (8.4-10.2); Carbon Dioxide 23 mmol/L (22-29); Chloride 109 mmol/L (96-108); Creatinine Clr Calc Pharmacy 13.1; Estimated Glomerular Filt Rate 9; Ferritin 1335 ng/mL (10-250); Glucose Random 184 mg/dL (60-115); Potassium 4.9 mmol/L (3.3-5.1); Sodium 143 mmol/L (135-145)
[2024-11-19 16:23] LABS: Alkaline Phosphatase 127 U/L (39-117)
== END 2024-12-17 12:23 | disposition home or self-care (01) ==
LOC: HO.ONC 15:30
PROVIDERS: PCP Family Medicine; Referring Provider Family Medicine; Visit Provider Internal Medicine Medical Oncology
DX: N18.4 Chronic kidney disease, stage 4 (severe) (principal); D63.1 Anemia in chronic kidney disease
CPT/HCPCS: 36415; 80053; 81206; 81207; 82607; 82668; 82728; 82746; 82784; 83615; 85007; 85025; 85027; 86334; 86850; 86900; 86901; 96372; 99202; 99212; J0885

== ENCOUNTER 2024-11-26 15:07 | Inpatient (IN) | payer MEDICARE, SELFPAY ==
[2024-11-26] VITALS (47 sets, daily range): BP systolic 53–264; BP diastolic 17–139; PULSE 30–104; RESP 15–25; TEMP 36.3–36.6; O2SAT 64–100; BMI 44.3
--- NOTE | 2024-11-26 | ECG_ITS ---
Test Reason : HR CHANGE Blood Pressure : */* mmHG Vent. Rate : 47 BPM Atrial Rate : 47 BPM P-R Int : 138 ms QRS Dur : 118 ms QT Int : 512 ms P-R-T Axes : 94 35 -1 degrees QTcB Int : 453 ms Sinus bradycardia Incomplete left bundle branch block Borderline ECG When compared with ECG of 26-Nov-2024 15:36, Sinus rhythm has replaced Atrial fibrillation Inverted T waves have replaced nonspecific T wave abnormality in Inferior leads Referred By: Shakira Thomas Electronically Signed By: Robles Mike
--- NOTE | ~2024-11-26 | XR_ITS ---
EXAMINATION: XR CHEST CLINICAL INFORMATION: sob COMPARISON: Numerous prior x-rays, most recently 10/30/2024. High-resolution chest CT 04/30/2024. TECHNIQUE: Frontal view of the chest was obtained. FINDINGS: Study is limited due to habitus and apical lordotic technique. This limits sensitivity. Subtle stable interstitial changes noted in the lung bases, similar to prior exams. No focal pneumonia. No effusions allowing for technical limitation. There is cardiac enlargement with prominent epicardial fat. Vascular pedicle is prominent due to technique and mediastinal fat. XR/XR chest 1V IMPRESSION: 1. Limited by habitus and apical lordotic technique. 2. Similar interstitial changes in the lower lungs. Cardiomegaly. 3. Allowing for technique, no active superimposed disease. Electronically signed by: Dereck Cuadra MD 11/26/2024 04:26 PM [facility]
--- NOTE | ~2024-11-26 | XR_ITS ---
CLINICAL HISTORY: Line placement 1 view chest x-ray Comparison: CT/SR - CT CHEST WO IV CON - 11/26/24 17:20 EST Findings: The lungs are clear. Rotated image. The ET tube and the enteric tube are in satisfactory position. The right IJ central venous catheter tip in the region of SVC. Heart size is normal. No acute fracture. IMPRESSION: 1. Rotated dimension limits evaluation. Right IJ central venous catheter tip is within the region of SVC. This document has been electronically signed by: Manny Jamison MD on 11/26/2024 20:18:57
--- NOTE | ~2024-11-26 | FL_ITS ---
EXAMINATION: FL GUIDANCE ONLY HISTORY: pacemaker insertion, dual COMPARISON: None available. TECHNIQUE: Fluoroscopy time: 1 minute, 32.8 seconds. Cumulative Dose: 28.127 mGy. DAP: 12.235 mGym2 Images: 2. FINDINGS: Fluoroscopic spot films of the chest demonstrate a lead projected over the cardiac silhouette. FL/FL guidance in OR IMPRESSION: Fluoroscopy during procedure. Please see procedure report for additional information. Electronically signed by: Ministerio Roberts MD 11/27/2024 03:47 PM JONO
--- NOTE | ~2024-11-26 | CT_ITS ---
CLINICAL HISTORY: sob, hypotensive, r o pna CT chest without contrast Comparison: CT/AK/SR - CT CHEST WO CON - HIGH RES - 03/31/24 07:47 EDT Findings: Mild cardiomegaly. Moderate coronary artery disease. No pericardial effusion. The visualized thyroid and mediastinum are unremarkable. Lower lobe predominant architectural distortion and ground-glass opacities. No honeycombing, grossly unchanged in the interval. No focal consolidation. No pleural effusion or pneumothorax. The upper abdomen is unremarkable. No acute fractures. IMPRESSION: 1. No acute disease within the chest. 2. Diffuse patchy ground-glass opacity of both lungs and lower lobe predominant architectural distortion consistent with chronic interstitial lung disease (NSIP pattern), Grossly unchanged in the interval. 3. Mild cardiomegaly and moderate coronary artery calcification. This document has been electronically signed by: Manny Jamison MD on 11/26/2024 18:08:36
--- NOTE | 2024-11-26 15:27 | ECG_ITS ---
Test Reason : SOB Blood Pressure : */* mmHG Vent. Rate : 62 BPM Atrial Rate : * BPM P-R Int : * ms QRS Dur : 100 ms QT Int : 468 ms P-R-T Axes : * 24 38 degrees QTcB Int : 475 ms Junctional rhythm with PACs Nonspecific ST and T wave abnormality Abnormal ECG When compared with ECG of 02-Nov-2024 12:10, Junctional rhythm present Referred By: Shahla Srivastava Electronically Signed By: Robles Mike
[2024-11-26 15:31] LABS: Glucose, Whole Blood 178 mg/dL (60-115)
--- OUTSIDE RECORDS SUMMARY | 2024-11-26 15:45 | XMS_ITS | Encounter Summary ---
Author Organization [facility] Address [address] [place] [address] Phone Care Team Providers Care Resident Services Director Name Role Phone Sadi Harden MD Primary Care Provider [phone]- [phone] Encounter Details Date Type Department Care Team (Late Contact Info) Description 02/18/2023 Telephone [facility] [address] [place] [address] Bita Amaya Social History Tobacco [...] Department Care Team (Late Contact Info) Description 01/26/2025 8:20 AM EDT Office Visit [facility] [address] [facility] [address] [place] [address] Dwanye Sorto MD [address] [address] documented as of this encounter Visit Diagnoses Not on filedocumented in this encounter Care Teams Resident Services Director Relationship Specialty Start Date End Date Sadi Harden MD [facility] [place] [address] PCP - General Family Medicine 12/25/23 documented as of this encounter
--- OUTSIDE RECORDS SUMMARY | 2024-11-26 15:45 | XMS_ITS | Encounter Summary ---
Author Organization [facility] Address [address] [address] Phone Care Team Providers Care [employer] Name Role Phone Sadi Harden MD Primary Care Provider [phone]- [phone] Encounter Details Date Type Department Care Team (Late st Contact Info) Description 11/24/2024 Office Communication [facility] [address] [address] Dwayne Sorto MD [address] [address] Social History Tobacco Use Types Packs/Day Years [...] encounter Miscellaneous Notes * Telephone Encounter - Dwayne Sorto MD - 11/24/2024 9:34 AM EST Please get the operative report of her dialysis access surgery from [facility] from Dr Julien -he did a fistula or graft on her arm around september documented in this encounter Plan of Treatment Upcoming Encounters Date Type Department Care Team (Late st Contact Info) Description 01/26/2025 8:20 AM EDT Office Visit [facility] [address] [address] Dwayne Sorto MD [address] [address] documented as of this encounter Visit Diagnoses Not on filedocumented in this encounter Care Teams [employer] Relationship Specialty Start Date End Date Sadi Harden MD [address] [place] [id number] PCP - General Family Medicine 12/25/23 documented as of this encounter
--- OUTSIDE RECORDS SUMMARY | 2024-11-26 15:45 | XMS_ITS | Encounter Summary ---
Author Organization [facility] Address [address] [place] [phone] Phone Care Team Providers Care Director Of Labor Relations Name Role Phone Sadi Harden MD Primary Care Provider [phone]- [phone] Reason for Visit * Reason Onset Date Comments No Show 11/19/2024 No show Encounter Details Date Type Department Care Team (Latest Contact Info) Description 11/19/2024 Documentation Only [facility] [address] [address] Dwayne Sorto MD [address] [place] [phone] No Show (No show/) Social History [...] Office Visit [facility] [address] [address] Dwayne Sorto MD [address] [place] [phone] documented as of this encounter Visit Diagnoses Not on filedocumented in this encounter Care Teams Director Of Labor Relations Relationship Specialty Start Date End Date Sadi Harden MD [address] [place] [id number] PCP - General Family Medicine 12/25/23 documented as of this encounter
--- OUTSIDE RECORDS SUMMARY | 2024-11-26 15:45 | XMS_ITS | Encounter Summary ---
Author Organization [facility] Address [facility] [address] Phone Care Team Providers Care Heel Varnisher Name Role Phone Sadi Harden MD Primary Care Provider +1- [phone] Encounter Details Date Type Department Care Team (Latest Contact Info) Description 11/24/2024 9:00 AM EST Office Visit [facility] [address] [address] Dwayne Sorto MD [address] [address] Chronic kidney disease, stage 4 (severe) (HCC) (Primary Dx); Diabetic glomerulonephritis (HCC); Dyslipidemia; Hyperkalemia; Hypertension; Persistent proteinuria; Secondary hyperparathyroidism (HCC); Other acute kidney failure (HCC) Social History Tobacco Use Types Packs/Day [...] on file documented as of this encounter Last Filed Vital Signs Vital Sign Reading Time Taken Comments Blood Pressure 119/97 11/24/2024 8:55 AM EST Pulse 70 11/24/2024 8:55 AM EST Temperature - - Respiratory Rate - - Oxygen Saturation 97% 11/24/2024 8:55 AM EST Inhaled Oxygen Concentration - - Weight 110 kg (242 lb) 11/24/2024 8:55 AM EST Height 157.5 cm (5' 2 ) 11/24/2024 8:55 AM EST Body Mass Index 44.26 11/24/2024 8:55 AM EST documented in this encounter Progress Notes * Dwayne Sorto MD - 11/24/2024 9:00 AM EST [facility] Office Visit Patient Name: Amaris Hook, Female Date of : 1955, 69 y.o. Date: 11/24/2024 History of Present Illness Amaris Hook is a 69 y.o. female who is here for follow up of multiple medical problems including ckd, mica, hyperkalemia, and proteinuria. Was hospitalized at [facility] and I corresponded with hospital physicians and Dr cordova who was covering that week for us. She has access surgert. She was able to avoid dialysis that admission but gfr is declining and she is close to needing to init iate hd. I accessed [facility] which showed creatinine 4.5 mg/dl and gfr < 15 cc/min. This is stable after 10 lb diuresis . On 11/20/24 creat 4.6 with gfr 9 cc/min. Hbg 7. She is in retacrit at [facility] . She has an arm access now Interim history since the last encounter was reviewed. No acute complaints were voiced. Denied chest pain, flank pain, hematuria, hemoptysis or fevers. All other systems were reviewed and negative. Available lab results were reviewed and discussed. Medication list was reviewed and discussed. Any available out of office blood pressure readings were reviewed and discussed. CV and Renal risk was assessed and discussed. The following portions of the patient's chart were reviewed in this encounter and updated as appropriate: Allergies Meds Problems Med Hx Surg Hx Fam Hx Past Medical History Past Medical History: Diagnosis Date Anemia Bilateral lower limb edema Chronic kidney disease stage 2 Congestive heart failure (HCC) Depressive disorder Essential hypertension Hyperlipidemia Hypoxemia Nocturnal hypoxemia Obesity Pneumonia Sleep apnea Type 2 diabetes mellitus (HCC) Past Surgical History Past Surgical History: Procedure Laterality Date DILATION AND CURETTAGE OF UTERUS Family History Family History Problem Relation Age of Onset Stroke Mother Diabetes Mother Hypertension Mother Stroke Father Cancer Sister Breast Cancer Diabetes Sister Stroke Maternal Grandmother Hypertension Maternal Grandmother Diabetes Maternal Grandmother Social History Social History Tobacco Use Smoking status: Never Smokeless tobacco: Not on file Substance Use Topics Alcohol use: No Medication List Current Outpatient Medications Medication Sig Dispense Refill acarbose (PRECOSE) 25 MG tablet Take 25 mg by mouth 1 (one) time each day in the evening ascorbic acid (VITAMIN C) 500 MG tablet Take 500 mg by mouth 1 (one) time each day atorvastatin (LIPITOR) 80 MG tablet Take 80 mg by mouth 1 (one) time each day carvedilol (COREG) 25 MG tablet Take 25 mg by mouth in the morning and 25 mg in the evening. Take with meals. D3-50 1.25 MG (93210 UT) capsule TAKE 1 CAPSULE ORALLY EVERY SATURDAY AT 9:00 AM FOR 90 DAYS Eliquis 5 MG tablet Take 5 mg by mouth in the morning and 5 mg in the evening. Epoetin Derick-epbx (Retacrit) 32443 UNIT/ML solution Inject as directed ferrous sulfate 325 (65 Fe) MG tablet Take 325 mg by mouth 1 (one) time each day with breakfast fexofenadine (NAPOLEON) 180 MG tablet Take 180 mg by mouth 1 (one) time each day furosemide (LASIX) 40 MG tablet Take 2 tablets (80 mg total) by mouth in the morning and 2 tablets (80 mg total) in the evening. 360 tablet 3 hydrALAZINE (APRESOLINE) 10 MG tablet Take 10 mg by mouth in the morning and 10 mg in the evening. insulin glargine (LANTUS) 100 UNIT/ML injection Inject 70 Units under the skin every night insulin lispro (HumaLOG) 100 UNIT/ML injection Inject under the skin 3 (three) times a day before meals lisinopril 10 MG tablet Take 10 mg by mouth 1 (one) time each day Mounjaro 5 MG/0.5ML solution auto-injector Inject 0.5 mL under the skin every 7 (seven) days sodium polystyrene sulfonate (KAYEXALATE) powder Take 15 g by mouth 3 (three) times weekly on Saturday venlafaxine XR (EFFEXOR-XR) 37.5 MG 24 hr capsule Take 37.5 mg by mouth 1 (one) time each day venlafaxine XR (EFFEXOR-XR) 75 MG 24 hr capsule Take 75 mg by mouth 1 (one) time each day No current facility-administered medications for this visit. Allergy List Allergies Allergen Reactions Penicillins Other (see comments) Physical Exam BP 119/97 (BP Location: Right upper arm, Patient Position: Sitting) Pulse 70 Ht 5' 2 (1.575 m) Wt 242 lb (110 kg) SpO2 97% BMI 44.26 kg/m?? Last 3 office BP readings: BP Readings from Last 3 Encounters: 11/24/24 119/97 08/10/24 112/78 05/07/24 129/73 General: Wheelchair - obese, continuous o2 Neuro: alert interactive without delirium Eyes: anicteric. Diminished vision and uses seeing cane ENT: moist membranes, no stridor Cardiovascular: regular rate and rhythm, no rub Pulmonary: no distress or tachypnea. Dry crackles both bases bilaterally Abdomen: soft and nondistended ++ obesity with thick neck girdth Genitourinary: no suprapubic tenderness or bladder distension to palpation Musculoskeletal: No bony tenderness or deviation Dermatologic: No visible rash on exposed skin Hematologic: no petechiae or ecchymoses on exposed skin Extremities: edema is mild pit bilateral ankles Right upper arm access has an OK bruit but no thrill and feels deep. Scar is healed. Seen with daughter Labs Chemistry Lab Units 11/19/24 0000 09/10/24 0000 08/06/24 1559 02/20/24 1522 12/24/23 1541 04/29/23 1403 01/29/23 1542 01/29/23 1541 CREATININE mg/dL 4.63* 4.35* 3.97* 2.46* 2.8* 2.3* -- 2.5* BUN mg/dL 67* 66* 89* 49* 43* 40* -- 56* POTASSIUM 4.9 4.6 5.2 5.1 5.5* 5.4* -- 5.8* SODIUM 143 143 145* 144 144 142 -- 139 CO2 mmol/L 23 21 17* 15* 19* 19* -- 23 CHLORIDE 109.0* 110.0* 109* 112* 106 109* -- 104 ALBUMIN g/dL 3.1* -- 2.9* 3.3* 3.7 3.5 -- 3.7 EGFRNAFR -- 10 -- -- 18 22 -- 20 EGFR mL/min/1.73 -- -- 12* 21* -- -- -- -- HEMOGLOBIN A1C % -- -- -- 8.2* -- -- -- -- WBC AUTO 10*3/ML 12.5* 11.3* 12.1* 11.2* 12.6* 11.2* < > -- HEMATOCRIT 26.6* 34.3* 31.1* 27.3* 34.1* 35.2* < > -- HEMOGLOBIN 7.8* 10.5* 9.9* 8.8* 10.4* 10.4* < > -- PLATELETS AUTO 10*3/UL 335 374 386 402 405 346 < > -- < > = values in this interval not displayed. Bone Mineral Lab Units 11/19/24 0000 09/10/24 0000 08/06/24 1559 02/20/24 1522 12/24/23 1541 04/29/23 1403 01/29/23 1542 01/29/23 1541 CALCIUM mg/dL 8.6* 8.3* 8.4* 8.5* 8.9 8.9 -- 9.4 PHOSPHORUS mg/dL -- -- 6.2* 4.4* 5.3* 3.8 -- 5.6* ALK PHOS IU/L -- -- 184* 151* 183* 154* -- 149* PTH pg/mL -- -- 127* 116* 260* 144* 83* -- VITAMIN D NG/ML -- -- -- -- 38.7 35.2 -- 31.5 VIT D 25 HYDROXY ng/mL -- -- 24.6* 37.0 -- -- -- -- Urine Lab Units 08/07/24 0650 02/20/24 1522 PROT/CREAT RATIO UR mg/g creat 8,553* 10,198* Iron Studies Lab Units 08/06/24 1559 02/20/24 1522 FERRITIN ng/mL 1,725* 1,923* TIBC ug/dL 191* 179* IRON SATURATION % 26 31 No lab exists for component: CYCLOSPORITR Office u/s 07/2022 - very limited due to morbid obesity. Right kidney may be a little smaller then left. No obstruction Ct scan [facility] 11/2022 no obstruction - small nonobst stone Assessment & Plan 1. Chronic kidney disease, stage 4 (severe) ([facility]) 2. Diabetic glomerulonephritis ([facility]) 3. Dyslipidemia 4. Hyperkalemia 5. Hypertension 6. Persistent proteinuria 7. Secondary hyperparathyroidism ([facility]) 8. Other acute kidney failure ([facility]) Impression and Plan? 1. Chronic kidney disease stage 5 - Progressive decline in the backdrop of diabetic retinopathy andmicroalbuminuria and a longstanding history of insulin requiring diabetes mellitus and now heavy proteinuria. Statistically this is likely diabetic nephropathy. ?This is exacerbated by nonadherence, daily nsaids, poor insight and multiple MICA including summer 2021, 08/2022 and 11/2022. Continues to deteriorate and GFR now < 15 cc/min in 2024. No uremia or acute front end ui developer indicator today but heading that way - estimated time to dialysis <6 mos but GFR down to 9 cc/min now and may be sooner. Was just hospitalized with chf 10/2024. We are awaiting arm access clearance - it was just created [facility] Anaya 2. Recurrent MICA 2014, 2021, 2022 - creatinine peaked above 3.5 in 2021 - baseline now 4.6 mg/dl with gfr < 10 3. Hyperkalemia. 2/2 mica and acei? - recurrent - nonadherent with binders often - was high in [facility] admit again 10/2024 4. Microalbuminuria. TP/cr less then 220 mg/day on tp/cr? in 2014. Now she has nephrotic range numbers > 10 gm/day in 2023 5. Hypertension. Better with diuresis 6. Morbid Obesity. ?7. Dyslipidemia. ? 8. Strong family history of kidney failure in her mother 9. Proton pump inhibitor use. stopped 10/2014 10. Long standing dm - suboptimally controlled with sequelae 11. AMY and nocturnal hypoxemia - cpap - pulmonary fibrosis - now continuous o2 since 07/2023 12. Nonadherence - lack or follow up - poor insight - daily nsaids - no shows - no follow through on k binders and diet - etc - continues 13. Vit d deficiency with secondary hyperparathyroidism - phosp trending up. Pth still < 250 vitd low 14. Normocytic anemia - likely epo deficient - needed transfusion 02/2024 - started retacrit with hematology office ([facility])summer 2023 - last level 7 DISCUSSION/RECOMMENDATIONS: -she has progressive stage 5 diabetic nephropathy that seems to be declining at a rate of 4 cc/min per year with heavy and progressive proteinuria -estimated time to dialysis <6 months and may be sooner as gfr is down even further -she needs to stay off nsaids indefinietly -dry weight and hydration status to balance kidney and heart is important -adjust meds for gfr <10 cc/min -glycemic control -amy treatment indicated -dialysis education provided multiple encounters and she chooses hemodialysis and requests [facility] surgery -she has no peripheral arm veins and access will be an issue. -she had access created and then had cellulitis -access today has a bruit but poor thrill and seems very deep and may not be readily available in the near future -she declined transplant referral after discussions -she was hospitalized 10/2024 at [facility] and was still making urine, responded to higher diuretics and is without uremia, so she avoided initiation of HD. However it was discussed imminently PLAN: -try to get hbg > 10 with iv iron an dretacrit -continue higher lasix 80/40 -see Dr Julien soon -she will need to initiate dialysis in the near coming months. We will initiate hemodialysis once DR Julien feels arm access is viable. -unfortunately the access is young and seems deep and may not be viable before she needs to start -rtc 6 weeks with labs Orders Placed This Encounter Comprehensive Metabolic Panel Uric Acid Magnesium Phosphorus PTH, Intact Vitamin D 25 Hydroxy CBC and Differential Protein, Total, Random Urine w/Creatinine (Protein/Creat Ratio) Ferritin Iron Panel (Fe, TIBC, TSAT) furosemide (LASIX) 40 MG tablet Return in about 2 months (around 01/22/2025) for OV with labs 1-2 weeks prior to visit. Dwayne Sorto MD documented in this encounter Plan of Treatment Upcoming Encounters Date Type Department Care Team (Late st Contact Info) Description 01/26/2025 8:20 AM EDT Office Visit [facility] P. [address] [address] Dwayne Sorto MD [address] [address] Scheduled Orders Name Type Priority Associated Diagnoses Orde r Schedule Comprehensive Metabolic Panel Lab Routine Chronic kidney disease, stage 4 (severe) (HCC) Diabetic glomerulonephritis (HCC) Dyslipidemia Hyperkalemia Hypertension Persistent proteinuria Secondary hyperparathyroidism (HCC) Other acute kidney failure (HCC) Expected: 01/22/2025, Expires: 12/22/2025 Uric Acid Lab Routine Chronic kidney disease, stage 4 (severe) (HCC) Diabetic glomerulonephritis (HCC) Dyslipidemia Hyperkalemia Hypertension Persistent proteinuria Secondary hyperparathyroidism (HCC) Other acute kidney failure (HCC) Expected: 01/22/2025, Expires: 12/22/2025 Magnesium Lab Routine Chronic kidney disease, stage 4 (severe) (HCC) Diabetic glomerulonephritis (HCC) Dyslipidemia Hyperkalemia Hypertension Persistent proteinuria Secondary hyperparathyroidism (HCC) Other acute kidney failure (HCC) Expected: 01/22/2025, Expires: 12/22/2025 Phosphorus Lab Routine Chronic kidney disease, stage 4 (severe) (HCC) Diabetic glomerulonephritis (HCC) Dyslipidemia Hyperkalemia Hypertension Persistent proteinuria Secondary hyperparathyroidism (HCC) Other acute kidney failure (HCC) Expected: 01/22/2025, Expires: 12/22/2025 PTH, Intact Lab Routine Chronic kidney disease, stage 4 (severe) (HCC) Diabetic glomerulonephritis (HCC) Dyslipidemia Hyperkalemia Hypertension Persistent proteinuria Secondary hyperparathyroidism (HCC) Other acute kidney failure (HCC) Expected: 01/22/2025, Expires: 12/22/2025 Vitamin D 25 Hydroxy Lab Routine Chronic kidney disease, stage 4 (severe) (HCC) Diabetic glomerulonephritis (HCC) Dyslipidemia Hyperkalemia Hypertension Persistent proteinuria Secondary hyperparathyroidism (HCC) Other acute kidney failure (HCC) Expected: 01/22/2025, Expires: 12/22/2025 CBC and Differential Lab Routine Chronic kidney disease, stage 4 (severe) (HCC) Diabetic glomerulonephritis (HCC) Dyslipidemia Hyperkalemia Hypertension Persistent proteinuria Secondary hyperparathyroidism (HCC) Other acute kidney failure (HCC) Expected: 01/22/2025, Expires: 12/22/2025 Protein, Total, Random Urine w/Creatinine (Protein/Creat Ratio) Lab Routine Chronic kidney disease, stage 4 (severe) (HCC) Diabetic glomerulonephritis (HCC) Dyslipidemia Hyperkalemia Hypertension Persistent proteinuria Secondary hyperparathyroidism (HCC) Other acute kidney failure (HCC) Expected: 01/22/2025, Expires: 12/22/2025 Ferritin Lab Routine Chronic kidney disease, stage 4 (severe) (HCC) Diabetic glomerulonephritis (HCC) Dyslipidemia Hyperkalemia Hypertension Persistent proteinuria Secondary hyperparathyroidism (HCC) Other acute kidney failure (HCC) Expected: 01/22/2025, Expires: 12/22/2025 Iron Panel (Fe, TIBC, TSAT) Lab Routine Chronic kidney disease, stage 4 (severe) (HCC) Diabetic glomerulonephritis (HCC) Dyslipidemia Hyperkalemia Hypertension Persistent proteinuria Secondary hyperparathyroidism (HCC) Other acute kidney failure (HCC) Expected: 01/22/2025, Expires: 12/22/2025 documented as of this encounter Procedures Procedure Name Priority Date/Time Associated Diagnosis Comments EXT RESULT ENTRY Routine 11/19/2024 documented in this encounter Results * (ABNORMAL) EXT RESULT ENTRY (11/19/2024) WBC 12.5(A) 3.3 - 10.0 10*3/ML Red Blood Cell Count 2.69 Hemoglobin 7.8(A) 12.0 - 16.0 Hematocrit 26.6(A) 36.0 - 46.0 Platelets 335 150 - 399 10*3/UL MCV 98.9 82.0 - 108.0 Sodium 143 137 - 147 Potassium 4.9 3.4 - 5.5 Chloride 109.0(A) 99.0 - 108.0 Carbon Dioxide 23 mmol/L Anion Gap 16 <=30 MMOL/L Glucose 184 60 - 200 BUN 67(A) 4 - 21 mg/dL Creatinine 4.63(A) 0.50 - 1.10 mg/dL Total Protein 7.0 6.4 - 8.2 G/DL Albumin 3.1(A) 3.5 - 5.0 g/dL Calcium 8.6(A) 8.7 - 10.7 mg/dL Total Bilirubin 0.20 MG/DL ALT (SGPT) <6 U/L AST (SGOT) 20 U/L 11/19/2024 us Historical Provider LAB BLOOD ORDERABLES Susan l Result documented in this encounter Visit Diagnoses Diagnosis Chronic kidney disease, stage 4 (severe) (HCC)- Primary Diabetic glomerulonephritis (HCC) Dyslipidemia Hyperkalemia Hypertension Persistent proteinuria Secondary hyperparathyroidism (HCC) Other acute kidney failure (HCC) documented in this encounter Care Teams Heel Varnisher Relationship Specialty Start Date End Date Sadi Harden MD [address] [place] [id number] PCP - General Family Medicine 12/25/23 documented as of this encounter
--- OUTSIDE RECORDS SUMMARY | 2024-11-26 15:45 | XMS_ITS | Clinical Summary ---
Author Organization [facility] Address [address] [place] [phone] Phone Care Team Providers Care Mining Engineering Technologist Name Role Phone Sadi Harden MD Primary Care Provider [phone] Allergies Active Allergy Reactions Criticality Noted Date [...] mouth 1 (one) time each day Active insulin glargine (LANTUS) 100 UNIT/ML injection Inject 70 Units under the skin every night Active insulin lispro (HumaLOG) 100 UNIT/ML injection Inject under the skin 3 (three) times a day before meals Active lisinopril 10 MG tablet Take 10 [...] weekly on Saturday Active Epoetin Derick-epbx (Retacrit) 47441 UNIT/ML solution Inject as directed Active D3-50 1.25 MG (21007 UT) capsule TAKE 1 CAPSULE ORALLY EVERY SATURDAY AT 9:00 AM FOR 90 DAYS 4 Active acarbose (PRECOSE) 25 MG tablet Take 25 mg by mouth 1 (one) time each day in the evening 4 Active Mounjaro 5 MG/0.5ML solution auto-injector Inject 0.5 mL under the skin every 7 (seven) days 5 Active furosemide (LASIX) 40 MG tablet Take 2 tablets (80 mg total) by mouth in the morning and 2 tablets (80 mg total) in the evening. 360 tablet 3 5 11/24/19 26 Active furosemide (LASIX) 40 MG tablet Take 40 mg by mouth in the morning and 40 mg in the evening. 11/24/19 25 Discontinu ed(Reorder (does not appear on AVS)) aspirin (ST ROLA) 81 MG EC tablet Take 81 mg by mouth 1 (one) time each day 11/24/19 25 Discontinu ed(Med List Maintenanc e) Active Problems Problem Noted Date Diagnosed Date [...] 05/09/2022 08/08/20 22 Hypertensive heart disease w [facility] heart failure 05/09/2022 08/08/2022 Fall on same level from slip ping, tripping and stumbling with subsequent striking against other object, initial encounter 05/20/2020 08/08/2022 Pain in right knee 05/20/2020 2 Strain of hamstring muscle 05/16/2020 1 Acute pharyngitis 08/06/2019 08/08/2022 Cough 08/06/2019 08/08/2022 Acute upper respiratory infection 08/04/2019 08/08/2022 Encounters Date Type Department Care Team Description 11/24/2024 9:00 AM EST Office Visit [facility] [address] [phone] Dwayne Sorto MD Chronic kidney disease, stage 4 (severe) (HCC) (Primary Dx); Diabetic glomerulonephritis (HCC); Dyslipidemia; Hyperkalemia; Hypertension; Persistent proteinuria; Secondary hyperparathyroidism (HCC); Other acute kidney failure (HCC) 11/24/2024 Office Communication [facility] [address] [phone] Dwayne Sorto MD 11/19/2024 Documentation Only [facility] [address] [phone] Dwayne Sorto MD No Show (No show/) 10/10/2024 Orders Only [facility] [address] [phone] Dwayne Sorto MD Chronic kidney disease, stage 4 (severe) (HCC); Diabetic glomerulonephritis (HCC); Persistent proteinuria; Hypertension; Hyperkalemia; Other acute kidney failure (HCC); Secondary hyperparathyroidism (HCC) 09/21/2024 Documentation Only [facility] [address] [phone] Dwayne Sorto MD No Show (No show/) [...] Mass Index 44.26 11/24/2024 8:55 AM EST Plan of Treatment Upcoming Encounters Date Type Department Care Team (Late st Contact Info) Description 01/26/2025 8:20 AM EDT Office Visit [facility] [address] [phone] Dwayne Sorto MD [address] [phone] Health Maintenance Due Date Last Done Comments [...] Diagnosis Comments EXT RESULT ENTRY Routine 11/19/2024 EXT RESULT ENTRY Routine 09/10/2024 HEMOGLOBIN A1C Routine 02/20/2024 3:22 PM EDT from Last 3 Months or Most Recently Relevant to Health Maintenance Results * (ABNORMAL) EXT RESULT ENTRY (11/19/2024) Only the most recent of2 resultswithin the time period is included. WBC 12.5(A) 3.3 - 10.0 10*3/ML Red [...] PM EDT Performed at: ??01 - [facility] [address] ??[id number] Asphalt Paver Operator: Judie Tarango MD, Phone: ??[phone] us Dwayne Sorto MD LAB BLOOD ORDERABLES Final Re sult [facility] See order comments [place] [address] from Last 3 Months or Most Recently Relevant to Health Maintenance Insurance MEDICARE [id number] MEDICARE Care Teams Mining Engineering Technologist Relationship Specialty Start Date End Date Sadi Harden MD [id number] [phone] PCP - General Family Medicine 12/25/23
[2024-11-26 16:20] LABS: Basophils Absolute Auto 0.1 X10*3/uL (0.0-0.2); Basophils Percent Auto 0.5 % (0-2); Eosinophils Absolute Auto 0.2 X10*3/uL (0.0-0.4); Eosinophils Percent Auto 1.2 % (0-4); Hematocrit 25.8 % (37.0-47.0); Hemoglobin 7.8 g/dl (12.0-16.0); Imm Gran Pct Auto 0.7 % (0.0-0.4); Lymphocytes Absolute Auto 1.4 X10*3/uL (1.2-4.9); Lymphocytes Percent Auto 9.9 % (20-40); MANUAL DIFF FLAG NO; Mean Corpuscular HGB Conc 30.2 g/dl (31.0-35.0); Mean Corpuscular Volume 99.2 fL (80.0-98.0); Mean Platelet Volume 10.1 fL (9.4-12.3); Monocytes Absolute Auto 0.9 X10*3/uL (0.1-1.2); Monocytes Percent Auto 6.5 % (2-11); NRBC Pct Auto 0.6 /100WBC (0.0-0.2); Neutrophils Percent Auto 81.2 % (45-73); Platelet Count 345 X10*3/uL (160-400); Red Cell Distribution Width 17.7 % (11.0-16.0); White Blood Count 13.6 X10*3/uL (4.8-10.8)
[2024-11-26 16:22] LABS: Magnesium 2.3 mg/dL (1.6-2.6)
[2024-11-26 16:25] LABS: Troponin-I High Sensitivity 727.3 ng/L (<3.5-17.0)
[2024-11-26 16:40] LABS: Influenza A PCR NEGATIVE (Negative); Influenza B PCR NEGATIVE (Negative); Resp Syncy Virus RNA Qual PCR NEGATIVE (Negative); SARS COV2 PCR INHOUSE NEGATIVE (Negative)
[2024-11-26 16:41] LABS: Lactic Acid 3.4 mmol/L (0.5-2.0)
[2024-11-26 17:04] LABS: B Type Natriuretic Peptide 649 pg/mL (<100)
--- NOTE | 2024-11-26 17:05 | ED_ITS ---
HPI - SOB/Dyspnea General Chief Complaint: Dyspnea Stated Complaint: low blood pressure and pulse Time Seen by Provider: 11/26/24 15:46 Source: patient and family Mode of arrival: ambulatory Limitations: no limitations History of Present Illness ED Provider: Dr. Isa Wynn HPI Narrative: Patient comes to emergency room accompanied by her family. Patient complaining of weakness and shortness of breath, patient reports that she feels better and can breathe better when she is laying flat. According to the patient, she was discharged from the hospital 3 weeks ago. Patient was here for CHF exacerbation. Patient states that after her discharge she was doing well, her Lasix was increased, does not believe that she has been gaining weight from fluid. Patient states that yesterday she started noticing that she had a bit of worsening shortness of breath. Patient admits that she uses oxygen at home due to chronic interstitial lung disease. Patient denies any chest pain or any near syncopal or syncopal episodes. Patient's family checked her blood pressure yesterday, they report that for the last 24 hours, her blood pressure has been in the 70s systolic. Patient was hoping to sleep it off and feel better by today. However, patient states that she still feels weak. No chest pain, increased shortness of breath from baseline. Patient denies fever or chills, denies coughing, denies any UTI symptoms Related Data Home Medications ?Medication ?Instructions ?Recorded ?Confirmed ascorbic acid (vitamin C) 500 mg 500 mg PO DAILY 09/22/20 11/11/24 tablet fexofenadine 180 mg tablet 180 mg PO DAILY 09/22/20 11/11/24 multivitamin 1 tab PO DAILY 09/12/22 11/11/24 epoetin waqar 2,000 unit/mL 3,000 unit subcut Q2W 08/17/24 11/11/24 injection solution (Procrit) carvedilol 25 mg tablet 25 mg PO BID 10/30/24 11/11/24 cholecalciferol (vitamin D3) 1,250 1,250 mcg PO PISANO 10/30/24 11/11/24 mcg (50,000 unit) capsule Previous Rx's ?Medication ?Instructions ?Recorded FreeStyle Robert 2 Crystal (flash #1 ea 12/24/22 glucose scanning reader) miscellaneous medical supply #1 ea 02/03/24 FreeStyle Robert 2 Sensor (flash #2 ea 04/16/24 glucose sensor) hydralazine 10 mg tablet 10 mg PO BID #180 tabs 06/18/24 pen needle, diabetic 32 gauge x #300 ea 06/24/24 (BD Ultra-Fine Susana Pen Needle) albuterol sulfate 90 mcg/actuation 1 inh inhalation QID PRN shortness 07/14/24 aerosol inhaler of breath or wheezing #6.7 grams venlafaxine 37.5 mg 37.5 mg PO DAILY 90 days #90 caps 09/14/24 capsule,extended release 24 hr (Effexor XR) venlafaxine 75 mg capsule,extended 75 mg PO DAILY 90 days #90 caps 09/14/24 release 24 hr acarbose 25 mg tablet 25 mg PO DAILY #90 tabs 10/01/24 furosemide 40 mg tablet 40 mg PO BID #60 tabs 10/08/24 apixaban 5 mg tablet (Eliquis) 5 mg PO BID #60 tabs 10/13/24 atorvastatin 80 mg tablet 80 mg PO BEDTIME 90 days #90 tabs 10/13/24 furosemide 40 mg tablet (Lasix) 40 mg PO DAILY #60 tabs 11/03/24 Lantus Solostar U-100 Insulin 100 30 unit (0.3 mL) subcut BID 90 11/12/24 unit/mL (3 mL) subcutaneous pen days #54 mL (insulin glargine) Mounjaro 5 mg/0.5 mL subcutaneous 5 mg (0.5 mL) subcut QWEEK #6 mL 11/12/24 pen injector (tirzepatide) insulin lispro 100 unit/mL See Rx Instructions subcut QID 30 11/12/24 subcutaneous pen days #45 mL Allergies Allergy/AdvReac Type Severity Reaction Status Date / Time penicillin V Allergy Severe joint Verified 11/26/24 15:37 swelling and rash amlodipine [From [facility]] AdvReac Intermediate edema Verified 11/26/24 15:37 Review of Systems 2 Review of Systems: Constitutional : No Weight loss, No Fever, No Chills, No Night Sweats, No Fatigue, No Malaise ENT/Mouth : No Hearing loss, No Ear Pain, No Nasal Congestion, No Sinus Pain, No Hoarseness, No sore throat, No Rhinorrhea, No Swallowing Difficulty Eyes: No Eye Pain, No Swelling, No Redness, No Foreign Body, No Discharge, No Vision Changes Cardiovascular : No Chest Pain, complaining of increased shortness of breath, at baseline lower extremity edema, denies orthopnea, states that she feels more comfortable breathing when she is lying flat Respiratory : No Cough, No Sputum, No Wheezing, No Smoke Exposure, No Dyspnea Gastrointestinal : No Nausea, No Vomiting, No Diarrhea, No Constipation, No abdominal Pain, No Hematochezia, No Melena Genitourinary : no irregular bleeding, No Dysuria, No Urinary Frequency, No Hematuria, No Urinary Incontinence, No Urgency, No Flank Pain, No Urinary Flow Changes, No Hesitancy Musculoskeletal : No joint pain, No Myalgias, No Joint Swelling Skin : No Skin Lesions, No rash Neuro : No Weakness, No Numbness, No Paresthesias, No Loss of Consciousness, No Dizziness, No Headache Psych : No Anxiety/Panic, No Depression, No SI/HI/AH/VH, No Social Issues, Heme/Lymph: No Bruising, No Bleeding,No Lymphadenopathy Endocrine : No Polyuria, No Polydipsia, No Temperature Intolerance [facility] Past Medical History Medical History Heartburn On anticoagulant therapy Interstitial lung disease Respiratory failure with hypoxia Cough Exercise hypoxemia MRSA carrier CAP (community acquired pneumonia) Morbid (severe) obesity due to excess calories Heme positive stool Atrial flutter Elevated serum creatinine AMY on CPAP Chronic renal failure Secondary aldosteronism Acute renal failure Nocturnal hypoxemia Morbid obesity Diabetes type 2, controlled Oxygen dependent HTN (hypertension) Morbid obesity due to excess calories AMY (obstructive sleep apnea) Pneumonia Obesity Elevated creatine kinase Anemia Congestive heart failure High cholesterol Diabetes type 2, uncontrolled Hypertension, essential Surgical History H/O colonoscopy History of surgery History of D&C Family History Family History Father Stroke Mother Stroke Hypertension Diabetes Maternal Grandmother Diabetes Hypertension Stroke Sister Diabetes Breast cancer Son Bipolar 1 disorder Overweight Other Mental health problem Substance abuse Social History Social History Household Members: Family Housing: House Are you a primary healthcare specialist to a significant other at home: No Do you presently have visiting nurse or other home services: No Unable to assess alcohol history related to: Unable to respond Alcohol intake: current Alcohol intake frequency: does not drink Comment: pt was medicated Patient Tobacco Use Status: Former Tobacco user Smoked in Last 30 Days: No e-Cigarette/Vaping Use: Never Used Second Hand Smoke Exposure: No Use of substances other than those prescribed or required for medical reasons: No Advance Directives: Yes Advance Directives on File: Yes Advance Directives Date on File: 06/09/21 Do you have a plan to hurt others: No Plan service: No Current occupational status: retired Cognitive needs: No Hearing needs: No Vision needs: Yes Physical Exam 2 Vital Signs: Vital Signs: Last Vital Signs Temp 97.9 F 11/26/24 15:38 Pulse 76 11/26/24 22:38 Resp 20 11/26/24 19:36 BP 214/88 H 11/26/24 22:38 Pulse Ox 100 11/26/24 21:08 O2 Del Method Nasal Cannula 11/26/24 18:28 O2 Flow Rate 4 11/26/24 18:28 FiO2 100 11/26/24 20:00 Oxygen Flow Rate 4 11/26/24 15:36 BMI result Body Mass Index 44.3 Medications Administered Generic Name Dose Route Start Last Admin Trade Name Freq PRN Reason Stop Dose Admin Fentanyl 1,000 mcg in 100 mls @ 0 mls/hr 11/26/24 20:45 11/26/24 21:30 Sublimaze/Ns IVCONT 200 mcg/hr .Q0M LORRIE 20 mls/hr Titration Protocol Per Protocol Norepinephrine Bitartrate 8 mg in 250 mls @ 0 mls/hr 11/26/24 20:45 11/26/24 22:38 Levophed IVCONT 0 mcg/kg/min .Q0M LORRIE 0 mls/hr Titration Protocol Per Protocol Dobutamine HCl/Dextrose 500 mg in 250 mls @ 0 mls/hr 11/26/24 20:45 11/26/24 19:26 Dobutrex IVCONT 0 mcg/kg/min .Q0M LORRIE 0 mls/hr Titration Protocol Per Protocol Discontinued Medications Generic Name Dose Route Start Last Admin Trade Name Freq PRN Reason Stop Dose Admin Sodium Chloride 500 mls @ 999 mls/hr 11/26/24 17:01 11/26/24 17:30 Ns IVCONT 11/26/24 17:31 Infused .Q31M ONE Infusion Piperacillin Sod/Tazobactam 50 mls @ 100 mls/hr 11/26/24 19:42 11/26/24 20:16 Sod 3.375 gm/ Sodium Chloride IV 11/26/24 20:11 Infused ONCE ONE Infusion Calcium Gluconate 2 gm in 100 mls @ 50 mls/hr 11/26/24 20:08 11/26/24 20:50 Calcium Gluconate IV 11/26/24 22:07 50 mls/hr ONCE ONE Administration Propofol 100 mg 11/26/24 22:35 11/26/24 21:30 Propofol 200 Mg/20 Ml Vial IVPUSH 11/26/24 22:36 100 mg ONCE ONE Administration Medical Decision Making Medical Decision Making MDM Narrative: My interpretation of labs: Patient's white blood cell count 13.6, patient has chronic leukocytosis. No signs of infection. At baseline chronic anemia, chemistry pending. Lactic acid 3.4, troponin sudden 127.3, BNP 649, chest x-ray does not show any signs of overt pulmonary edema. Patient has at baseline +1 pitting edema Patient denies any URI or UTI symptoms. Patient has new EKG findings, bigeminy. Patient has chronic atrial fibrillation, however now patient has low RVR. Also found to be hypotensive in the 70s to 80s systolic. At this time, 17:07, infection/sepsis is not suspected. I discussed the patient with Dr. Mike from cardiology. So far, seems that the reason for the patient's elevated lactic acid and low blood pressure is due to diuresis with lasix, secondary to the recent increase in patient's Lasix. Less likely to be cardiogenic shock. Sepsis is not suspected. Recommendations from cardiology: 500 mL bolus, careful hydration due to history of CHF, and re-evaluation, no pressors for now. Chest x-ray: Limited by body habitus, no overt pulmonary edema, no active superimposed disease. CT scan of the chest pending Within 30 minutes the 500 mL bolus, patient's blood pressure improved to the high 90s low 100 systolic pressure. Patient awake and alert At 19:00, patient's family came out of the room asking for help, the patient was not ?breathing right? Patient was having agonal breathing, heart rate dropped to the 30s. Patient was assisted with Ambu bag ventilation, heart rate in the low 30s, likely secondary to hypoxia. Patient does have pulse. atropine was given. Patient's heart rate still in the 30s, given a 2nd and 3rd dose. In the meantime intubation setting was taken place. Patient was intubated, blood pressure in the 50s, patient was started on dobutamine At maximum dose of dobutamine, patient's blood pressure is still in the low 60s systolic. Levophed was started Cardiogenic shock still suspected. All of patient's labs Eventually blood pressure increased to 200 systolic, heart rate in the 70s to 90s, oxygen saturation 99% intubated. Dobutamine was discontinued, patient is still on Levophed and fentanyl drip I discussed the patient with Dr. Mike, agreed with current management, agree to have dobutamine discontinued at this time and keep the patient on Levophed. On chest x-ray after intubation , OG-tube insertion and central line placement: Patient may be developing infiltrates which were not seen on CT scan earlier today. Possible aspiration when the patient went unresponsive? Patient was empirically treated with Zosyn All of patient's labs being repeated, at this time, 822, 2nd set of labs pending, urinalysis pending At this time, 20:15, patient's blood pressure improved to the 170s systolic, heart rate in the 90s, oxygen saturation 100% intubated CT scan to rule out pulmonary embolism was considered. However, patient's creatinine is too elevated. Patient had been unstable with liable blood pressure and O2 saturations, could not go for a V/Q scan. However, it is low probability that this may be a pulmonary embolism, patient is on Eliquis. On previous CT scans and physical exam, there were no obvious indications for right heart strain We are on downtime for labs and radiology Faxed chest x-ray shows that the lungs are clear, ET tube and enteric tube are in satisfactory position, right IJ is in the superior vena cava Patient was straight cath, urine has been sent to the lab At this time, 22:13, patient's urine returned. The only possible source of infection at this time is a UTI. When patient arrived, patient denied any UTI symptoms. Patient has already been covered with Zosyn. A UTI is very unlikely to have caused patient's initial symptoms, respiratory difficulties or increase in troponin Patient is not a candidate for a 30 mL/kilogram candidate, bolus exclusion form has been added Patient's nurse noted the patient has coffee-ground fluid coming from the mouth. Fluid collected, sent to the lab for to rule out GI bleed. Patient's hemoglobin is at baseline 22:27: Patient's 2nd troponin 880.8, potassium 4.7 I discussed the troponin elevation with Dr. Mike. Patient's EKG does not show ischemic changes. We will not start heparin. Also, upper GI heme steady pending I discussed the patient with Dr. Webster, pt being admitted to the ICU Differential Diagnosis Differential Diagnoses: The differential diagnosis associated with the presentation includes (CHF) Admission/Observation Consideration of admission/observation: Escalation of care including admission/observation considered Consult Healthcare Provider Management of the patient was discussed with: Hospitalist and Vegetable Handler Lab Data MDM Lab Attestation statement: I reviewed the patient's lab results. 11/26/24 16:12 11/26/24 17:07 Labs: Lab Results 11/26/24 11/26/24 11/26/24 Range/Units 15:11 15:54 16:12 WBC 13.6 H (4.8-10.8) X10*3/uL RBC 2.60 L (4.20-5.50) X10*6/uL Hgb 7.8 L (12.0-16.0) g/dl Hct 25.8 L (37.0-47.0) % MCV 99.2 H (80.0-98.0) fL MCH 30.0 (27.0-33.0) pg MCHC 30.2 L (31.0-35.0) g/dl RDW 17.7 H (11.0-16.0) % Plt Count 345 (160-400) X10*3/uL MPV 10.1 (9.4-12.3) fL Immature Gran % (Auto) 0.7 H (0.0-0.4) % Neut % (Auto) 81.2 H (45-73) % Lymph % (Auto) 9.9 L (20-40) % [place] % (Auto) 6.5 (2-11) % Eos % (Auto) 1.2 (0-4) % Baso % (Auto) 0.5 (0-2) % Lymph # (Auto) 1.4 (1.2-4.9) X10*3/uL [place] # (Auto) 0.9 (0.1-1.2) X10*3/uL Eos # (Auto) 0.2 (0.0-0.4) X10*3/uL Baso # (Auto) 0.1 (0.0-0.2) X10*3/uL Abs Immat Gran (auto) 0.10 H (0.00-0.03) X10*3/uL Absolute Neuts (auto) 11.0 H (2.0-8.3) x10*3/uL Absolute Nucleated RBC 0.080 H (0.0-0.012) X10*3/uL Nucleated RBC % (auto) 0.6 H (0.0-0.2) /100WBC VBG pH (7.32-7.43) VBG pCO2 mmHg VBG pO2 mmHg VBG HCO3 (22-26) mmol/L VBG O2 Saturation % VBG Base Excess mmol/L Sodium (135-145) mmol/L Potassium (3.3-5.1) mmol/L Chloride (96-108) mmol/L Carbon Dioxide (22-29) mmol/L Anion Gap (12-20) BUN (9-16) mg/dL Creatinine (0.5-1.4) mg/dL Estim Creat Clear Calc Estimated GFR POC Glucose 178 H (60-115) mg/dL Random Glucose (60-115) mg/dL Lactic Acid 3.4 H* (0.5-2.0) mmol/L Calcium (8.4-10.2) mg/dL Magnesium 2.3 (1.6-2.6) mg/dL Troponin I High Sens 727.3 H* D (<3.5-17.0) ng/L B-Natriuretic Peptide 649 H (<100) pg/mL Urine Color Urine Appearance Urine pH (5.0-9.0) Ur Specific [place] (1.005-1.025) Urine Protein (Neg-Trace) mg/dL Urine Glucose (UA) (Negative) mg/dL Urine Ketones (Negative) mg/dL Urine Blood (Negative) Urine Nitrite (Negative) Ur Leukocyte Esterase (Negative) Urine RBC (0-2) /HPF Urine WBC (0-5) /HPF Urine WBC Clumps Ur Squamous Epith Cells (0-2) /HPF Urine Bacteria (None Seen) Hyaline Casts (0-2) /LPF Influenza Type A (PCR) NEGATIVE (Negative) Influenza Type B (PCR) NEGATIVE (Negative) RSV RNA Qual (PCR) NEGATIVE (Negative) SARS-CoV-2 RNA (RT-PCR) NEGATIVE (Negative) Blood Type O Positive Antibody Screen NEGATIVE 11/26/24 11/26/24 11/26/24 Range/Units 17:07 17:15 19:01 WBC (4.8-10.8) X10*3/uL RBC (4.20-5.50) X10*6/uL Hgb (12.0-16.0) g/dl Hct (37.0-47.0) % MCV (80.0-98.0) fL MCH (27.0-33.0) pg MCHC (31.0-35.0) g/dl RDW (11.0-16.0) % Plt Count (160-400) X10*3/uL MPV (9.4-12.3) fL Immature Gran % (Auto) (0.0-0.4) % Neut % (Auto) (45-73) % Lymph % (Auto) (20-40) % [place] % (Auto) (2-11) % Eos % (Auto) (0-4) % Baso % (Auto) (0-2) % Lymph # (Auto) (1.2-4.9) X10*3/uL [place] # (Auto) (0.1-1.2) X10*3/uL Eos # (Auto) (0.0-0.4) X10*3/uL Baso # (Auto) (0.0-0.2) X10*3/uL Abs Immat Gran (auto) (0.00-0.03) X10*3/uL Absolute Neuts (auto) (2.0-8.3) x10*3/uL Absolute Nucleated RBC (0.0-0.012) X10*3/uL Nucleated RBC % (auto) (0.0-0.2) /100WBC VBG pH 7.35 (7.32-7.43) VBG pCO2 46 mmHg VBG pO2 30 mmHg VBG HCO3 26 (22-26) mmol/L VBG O2 Saturation 35.0 % VBG Base Excess 0.8 mmol/L Sodium 139 (135-145) mmol/L Potassium 5.5 H (3.3-5.1) mmol/L Chloride 107 (96-108) mmol/L Carbon Dioxide 20 L (22-29) mmol/L Anion Gap 18 (12-20) BUN 68 H (9-16) mg/dL Creatinine 5.05 H* (0.5-1.4) mg/dL Estim Creat Clear Calc 12.1 Estimated GFR 8 POC Glucose 156 H (60-115) mg/dL Random Glucose 209 H (60-115) mg/dL Lactic Acid (0.5-2.0) mmol/L Calcium 7.8 L D (8.4-10.2) mg/dL Magnesium (1.6-2.6) mg/dL Troponin I High Sens (<3.5-17.0) ng/L B-Natriuretic Peptide (<100) pg/mL Urine Color Urine Appearance Urine pH (5.0-9.0) Ur Specific [place] (1.005-1.025) Urine Protein (Neg-Trace) mg/dL Urine Glucose (UA) (Negative) mg/dL Urine Ketones (Negative) mg/dL Urine Blood (Negative) Urine Nitrite (Negative) Ur Leukocyte Esterase (Negative) Urine RBC (0-2) /HPF Urine WBC (0-5) /HPF Urine WBC Clumps Ur Squamous Epith Cells (0-2) /HPF Urine Bacteria (None Seen) Hyaline Casts (0-2) /LPF Influenza Type A (PCR) (Negative) Influenza Type B (PCR) (Negative) RSV RNA Qual (PCR) (Negative) SARS-CoV-2 RNA (RT-PCR) (Negative) Blood Type Antibody Screen 11/26/24 11/26/24 Range/Units 20:28 20:32 WBC (4.8-10.8) X10*3/uL RBC (4.20-5.50) X10*6/uL Hgb (12.0-16.0) g/dl Hct (37.0-47.0) % MCV (80.0-98.0) fL MCH (27.0-33.0) pg MCHC (31.0-35.0) g/dl RDW (11.0-16.0) % Plt Count (160-400) X10*3/uL MPV (9.4-12.3) fL Immature Gran % (Auto) (0.0-0.4) % Neut % (Auto) (45-73) % Lymph % (Auto) (20-40) % [place] % (Auto) (2-11) % Eos % (Auto) (0-4) % Baso % (Auto) (0-2) % Lymph # (Auto) (1.2-4.9) X10*3/uL [place] # (Auto) (0.1-1.2) X10*3/uL Eos # (Auto) (0.0-0.4) X10*3/uL Baso # (Auto) (0.0-0.2) X10*3/uL Abs Immat Gran (auto) (0.00-0.03) X10*3/uL Absolute Neuts (auto) (2.0-8.3) x10*3/uL Absolute Nucleated RBC (0.0-0.012) X10*3/uL Nucleated RBC % (auto) (0.0-0.2) /100WBC VBG pH (7.32-7.43) VBG pCO2 mmHg VBG pO2 mmHg VBG HCO3 (22-26) mmol/L VBG O2 Saturation % VBG Base Excess mmol/L Sodium (135-145) mmol/L Potassium (3.3-5.1) mmol/L Chloride (96-108) mmol/L Carbon Dioxide (22-29) mmol/L Anion Gap (12-20) BUN (9-16) mg/dL Creatinine (0.5-1.4) mg/dL Estim Creat Clear Calc Estimated GFR POC Glucose (60-115) mg/dL Random Glucose (60-115) mg/dL Lactic Acid (0.5-2.0) mmol/L Calcium (8.4-10.2) mg/dL Magnesium (1.6-2.6) mg/dL Troponin I High Sens 880.8 H* (<3.5-17.0) ng/L B-Natriuretic Peptide (<100) pg/mL Urine Color Yellow Urine Appearance Turbid Urine pH 6.5 (5.0-9.0) Ur Specific [place] 1.020 (1.005-1.025) Urine Protein 300 (3+) H (Neg-Trace) mg/dL Urine Glucose (UA) 250 H (Negative) mg/dL Urine Ketones Negative (Negative) mg/dL Urine Blood Large (3+) H (Negative) Urine Nitrite Positive H (Negative) Ur Leukocyte Esterase Large (3+) H (Negative) Urine RBC 11-20 H (0-2) /HPF Urine WBC >50 H (0-5) /HPF Urine WBC Clumps Present Ur Squamous Epith Cells 0-2 (0-2) /HPF Urine Bacteria 3+ (None Seen) Hyaline Casts 0-2 (0-2) /LPF Influenza Type A (PCR) (Negative) Influenza Type B (PCR) (Negative) RSV RNA Qual (PCR) (Negative) SARS-CoV-2 RNA (RT-PCR) (Negative) Blood Type Antibody Screen Independent Interpretation I performed an independent interpretation of an: EKG and CT Scan Interpretation: Mild cardiomegaly. Moderate coronary artery disease. No pericardial effusion. The visualized thyroid and mediastinum are unremarkable. Lower lobe predominant architectural distortion and ground-glass opacities. No honeycombing, grossly unchanged in the interval. No focal consolidation. No pleural effusion or pneumothorax. The upper abdomen is unremarkable. No acute fractures. IMPRESSION: 1. No acute disease within the chest. 2. Diffuse patchy ground-glass opacity of both lungs and lower lobe predominant architectural distortion consistent with chronic interstitial lung disease (NSIP pattern), Grossly unchanged in the interval. 3. Mild cardiomegaly and moderate coronary artery calcification Procedures Procedure Narrative Procedure Narrative: Ultrasound-guided IV 18 gauge 1-3/4 inch IV placed in right upper extremity, adequate blood return, flushes well, secured with Tegaderm. Performed by Shahla Srivastava PA-C Central Line Placement Right IJ: Time Out Performed: Yes Patient Placed on Monitor/Pulse Ox: Yes Prep: mask, gown and gloves Central Line Prep: Chlorhexidine scrub Ultrasound Used for Placement: Yes Central Line Lumen Inserted: triple Post Procedure: sutured in place, good blood return, all ports aspirated, flushed, capped and sterile dressing applied Post Procedure X-Ray: tip of catheter in good position and no pneumothorax seen Patient Tolerated Procedure: well and no complications Complications: none Intubation Intubation Type:: Endotracheal Tube Insertion Time out performed: Yes sedative: Etomidate Mg Given: 20 paralytic: Rocuronium Mg Given: 50 Laryngoscope: other (GlideScope) ET Tube Size: 7.5 ET Tube Uncuffed: No Tube Secured Depth (cm): 25 Tube Secured Location: lips Tube Placement Confirmation: visualized tube passing through cords, equal breath sounds bilaterally, no breath sounds over epigastrium and confirmation by capnometry Patient Tolerated Procedure: well and no complications Intubation Complications: none Discharge Plan Discharge Clinical Impression: Cardiogenic shock, Acute UTI, Respiratory failure Patient Disposition: Admitted As Inpatient Sepsis Bolus Exclusion Sepsis Bolus Exclusion CHF/Renal Failure This patient met severe sepsis criteria due to the following condition(s):: H ypotension In my clinical judgement the administration of 30 ml/kg of crystalloid would be detrimental to this patient due to the patient's following conditions:: NYHA class III or IV Heart Failure(symptoms with low exertion or rest) Replace the 30 mls/kg with (Zero amount not acceptable and all fluids for severe sepsis must be given at GREATER than 125 mls/hr) Crystalloids amount given in mls: (rate must be at least 150cc/hr): 999 Colloids amount given in mls:: 500
[2024-11-26] MEDS: 0.9 % Sodium Chloride 500 ML 999 ML IVCONT (17:10)
[2024-11-26 17:32] LABS: VBG Base Excess 0.8 mmol/L; VBG HCO3 26 mmol/L (22-26); VBG pCO2 46 mmHg; VBG pH 7.35 (7.32-7.43); VBG pO2 30 mmHg
[2024-11-26 17:33] LABS: Venous Blood Gas Refer to POC result
[2024-11-26 17:39] LABS: Anion Gap 18 (12-20); Blood Urea Nitrogen 68 mg/dL (9-16); Calcium 7.8 mg/dL (8.4-10.2); Carbon Dioxide 20 mmol/L (22-29); Chloride 107 mmol/L (96-108); Creatinine Clr Calc Pharmacy 12.1; Estimated Glomerular Filt Rate 8; Glucose Random 209 mg/dL (60-115); Potassium 5.5 mmol/L (3.3-5.1); Sodium 139 mmol/L (135-145)
[2024-11-26 18:17] LABS: Reflex Lactate? Lactic Acid Added
[2024-11-26] MEDS: DOBUTamine HCL/D5W 500 MG/250 ML IV.SOLN 16.47 MG IVCONT (19:10)
[2024-11-26] MEDS: Norepinephrine Bitartrate/D5W 8 MG/250 ML PLAST..BAG 205.82 MG IVCONT (19:16)
[2024-11-26] MEDS: fentaNYL citrate/NS 1,000 MCG/100 ML PLAST..BAG 2.5 MCG IVCONT (19:36)
[2024-11-26] MEDS: Piperacillin Sodium/Tazobactam 3.375 GM in 0.9 % Sodium Chloride 50 ML IV (19:45)
[2024-11-26] MEDS: Calcium Gluconate/NaCl,Iso-Osm 2 GM/100 ML PLAST..BAG IV (20:50)
[2024-11-26 20:59] LABS: Glucose, Whole Blood 156 mg/dL (60-115)
[2024-11-26] MEDS: propofoL 1,000 MG/100 ML VIAL 19.76 MG IVCONT (21:30)
[2024-11-26] MEDS: propofoL 200 MG/20 ML VIAL 100 MG IVPUSH (21:30)
[2024-11-26 21:32] LABS: Appearance Urine Turbid; Color Urine Yellow; Glucose Urine UA 250 mg/dL (Negative); Leukocyte Esterase Urine Large (3+) (Negative); Nitrite Urine Positive (Negative); PH 6.5 (5.0-9.0); UMIC TRIGGER UACC YES; Urine Blood Large (3+) (Negative); Urine Ketones Negative (Negative); Urine Protein 300 (3+) mg/dL (Neg-Trace)
[2024-11-26 21:55] LABS: Bacteria Urine 3+ (None Seen); Hyaline Casts Urine 0-2 /LPF (0-2); Squamous Epithelial Cell Urine 0-2 /HPF (0-2); UACC Culture Trigger YES; WBC Clumps Urine Present; WBC Urine >50 /HPF (0-5)
[2024-11-26 22:29] LABS: GASOB Int Neg Ctl Valid YES; GASOB Int Pos Ctl Valid YES; GASOB Lot 20632; Occult Blood Gastric POSITIVE (NEG)
--- NOTE | 2024-11-26 22:43 | PC.NURSE ---
late entry- [id number]- see code sheet. this rn assumed care of pt, pt family and previous rn at bedside, previous RN called for assistance to pt room. pt noted to be lethargic, cordero in color and not responsive, pt sating 50% and bradycardic at 29. called to bedside and RT at bedside, manual bagging began. 1947- Central line placed in pt right neck, chest xray confirming placement. 2021- temp sensing lee placed, 16F, pt voided 200ml of cloudy yellow urine, sample obtained and sent to lab. 2120- pt noted to desat on vent to 85%, rt and provider called to bedside, manual bagging preformed, pt sating 100%, placed back onto vent. 2199- ICU MD at bedside to accept pt. family remains at bedside at this time.
[2024-11-26 22:46] LABS: Potassium 4.7 mmol/L (3.3-5.1); Sodium 140 mmol/L (135-145)
[2024-11-26 22:47] LABS: Anion Gap 21 (12-20); Blood Urea Nitrogen 69 mg/dL (9-16); Carbon Dioxide 17 mmol/L (22-29); Chloride 107 mmol/L (96-108); Estimated Glomerular Filt Rate 9
[2024-11-26 22:48] LABS: Calcium 7.8 mg/dL (8.4-10.2); Glucose Random 253 mg/dL (60-115)
[2024-11-26 22:56] LABS: B Type Natriuretic Peptide 538 pg/mL (<100)
[2024-11-26 23:16] LABS: Phosphorus 7.7 mg/dL (2.7-4.5); Potassium 4.6 mmol/L (3.3-5.1)
[2024-11-26 23:51] LABS: ~Lactic Acid-LAB USE ONLY 3.1 mmol/L (0.5-2.0)
[2024-11-27] VITALS (80 sets, daily range): BP systolic 0–251; BP diastolic 0–105; PULSE 0–121; RESP 15–29; TEMP 35–38.2; O2SAT 79–100; BMI 44.1; BMI 45.3
[2024-11-27 00:27] LABS: Glucose, Whole Blood 161 mg/dL (60-115)
[2024-11-27] MEDS: Atropine Sulfate 1 MG/10 ML SYRINGE IVPUSH (01:18)
[2024-11-27] MEDS: DOPamine HCL/D5W 400 MG/250 ML PLAST..BAG 20.58 MG IVCONT ×2 (01:20→12:33)
[2024-11-27] MEDS: propofoL 1,000 MG/100 ML VIAL 26.35 MG IVCONT (01:28)
[2024-11-27] MEDS: fentaNYL citrate/NS 1,000 MCG/100 ML PLAST..BAG 20 MCG IVCONT (01:30)
--- NOTE | 2024-11-27 02:00 | PC.NURSE ---
Pt arrived to unit from ED at 0118 intubated?and sedated. HR 40s afib on tele, bp 51/16 - atropine 1 mg IVP given per CRANE HOIST [facility] LIFT OPERATOR Shakira, levophed started?at 0.05 mcg/kg/min, dopamine started at 5 mcg/kg/min? - see emar for titrations. RASS -4, sedation decreased per CRANE HOIST [facility] LIFT OPERATOR - see emar for titrations. ETT #7.5 25 cm?@ lip, vent settings?ACVC 20/300/8/100%. OG tube to intermittent suction per CRANE HOIST [facility] LIFT OPERATOR. Skin intact. Safety measures in place.?
--- NOTE | 2024-11-27 05:15 | PM.CCHP ---
History of Present Illness Date of Service: 11/27/24 Attending physician on admission: Bryson Webster Chief Complaint: Dyspnea, hypotension Ms. Hook is a 69-year-old female with a PMH significant for paroxysmal AFib on Eliquis, HFpEF, CKD 4 with recent left fistula placed (no HD yet) interstitial lung disease on chronic home O2, HTN, insulin-dependent type 2 diabetes?presented to the emergency room with worsening shortness of breath,?weakness and low blood pressure. She denied any chest pain, near syncopal event, chills, cough, UTI symptoms. Of note, the patient was admitted to this facility about 2-? weeks ago for treatment of acute on chronic hypoxic respiratory failure in the setting of CHF and electrolyte abnormalities in the setting of advanced CKD. On arrival to the ED, the patient's blood pressure was 69/29, heart rate? 58, respiratory rate 17, O2 Sat? 96 on 4 LNC. Afebrile. Laboratory data significant for WBC 13.6, hemoglobin 7.8, hematocrit 25.8, platelets 345, potassium 5.5, CO2 20, BUN 68, creatinine 5.05, troponin 727.3, BNP 649. ABG 7.35 46 30 26. Urinalysis indicative of a UTI. ? Occult blood positive.? Respiratory panel negative. Imaging: Chest x-ray showed no focal pneumonia or effusions. Chest CT consistent with chronic interstitial lung disease.?Mild cardiomegaly and moderate coronary artery calcification noted. ED course: While in the emergency room the patient became bradycardic down to the 30s and was noted to have agonal breathing. She was intubated for airway protection. She was sedated with propofol and fentanyl. She received a 500 cc bolus of normal saline and was given 3.375 g Zosyn.? She was managed with Levophed and dobutamine for hypotension per cardiology recommendation. Upon arrival to the ICU, the pt's HR was 35-42 with pause up to about 8 seconds. Bigeminy noted. BP 59/25. She was given Atropine 1 mg and was started on a dopamine drip in addition to the norepinephrine that was already running. The pt's HR normalized to 80's, SBP up to 130's. Pt was then titrated off norepinephrine. Review of Systems Review of Systems: Yes unobtainable due to endotracheal tube PMFSH Past Medical History Medical History Heartburn On anticoagulant therapy Interstitial lung disease Respiratory failure with hypoxia Cough Exercise hypoxemia MRSA carrier CAP (community acquired pneumonia) Morbid (severe) obesity due to excess calories Heme positive stool Atrial flutter Elevated serum creatinine AMY on CPAP Chronic renal failure Secondary aldosteronism Acute renal failure Nocturnal hypoxemia Morbid obesity Diabetes type 2, controlled Oxygen dependent HTN (hypertension) Morbid obesity due to excess calories AMY (obstructive sleep apnea) Pneumonia Obesity Elevated creatine kinase Anemia Congestive heart failure High cholesterol Diabetes type 2, uncontrolled Hypertension, essential Family History Family History Father Stroke Mother Stroke Hypertension Diabetes Maternal Grandmother Diabetes Hypertension Stroke Sister Diabetes Breast cancer Son Bipolar 1 disorder Overweight Other Mental health problem Substance abuse Surgical History Surgical History H/O colonoscopy History of surgery History of D&C Social History Social History Household Members: Unknown / Unable to assess Housing: Unknown / Unable to assess Are you a primary urgent care physician to a significant other at home: No Do you presently have visiting nurse or other home services: No Unable to assess alcohol history related to: Unable to respond Alcohol intake: current Alcohol intake frequency: does not drink Comment: pt was medicated Patient Tobacco Use Status: Former Tobacco user Smoked in Last 30 Days: No e-Cigarette/Vaping Use: Never Used Second Hand Smoke Exposure: No Use of substances other than those prescribed or required for medical reasons: Unable to respond Advance Directives: Yes Advance Directives on File: Yes Advance Directives Date on File: 06/09/21 Do you have a plan to hurt others: No Plan Recently lost weight without trying: Unsure Nutrition Risks: No Nutritional Risk Patient : No service: No Current occupational status: retired Cognitive needs: No Hearing needs: No Vision needs: Yes Meds Allergies Allergy/AdvReac Type Severity Reaction Status Date / Time penicillin V Allergy Severe joint Verified 11/26/24 15:37 swelling and rash amlodipine [From [facility]] AdvReac Intermediate edema Verified 11/26/24 15:37 Active Medications: Current Medications Chlorhexidine Gluconate (Chlorhexidine Gluc Oral Rinse 15 Ml Mouthwash) 15 ml BUCCAL TID [facility] Dextrose (Dextrose 50 % 25 Gm/50 Ml Syringe) 25 gm IVPUSH Q15M PRN; Protocol PRN Reason: per Hypoglycemia Standing Ord. Glucose (Glucose Gel 15 Gm Gel..Gram.) 15 gm PO Q15M PRN; Protocol PRN Reason: per Hypoglycemia Standing Ord. Heparin Sodium (Porcine) (Heparin Sodium,Porcine 5,000 Unit/Ml Vial) 5,000 unit SUBCUT Q8H [place] Fentanyl (Sublimaze/Ns) 1,000 mcg in 100 mls @ 0 mls/hr IVCONT .Q0M [facility]; Protocol Last Titration: 11/27/24 01:57 Dose: 175 mcg/hr, 17.5 mls/hr Norepinephrine Bitartrate (Levophed) 8 mg in 250 mls @ 0 mls/hr IVCONT .Q0M [facility]; Protocol Last Titration: 11/27/24 05:02 Dose: 0 mcg/kg/min, 0 mls/hr Propofol (Diprivan) 1,000 mg in 100 mls @ 0 mls/hr IVCONT .Q0M [facility]; Protocol Last Titration: 11/27/24 02:11 Dose: 10 mcg/kg/min, 6.59 mls/hr Dopamine HCl/Dextrose (Dopamine Hcl/D5w) 400 mg in 250 mls @ 0 mls/hr IVCONT .Q0M [facility]; Protocol Last Titration: 11/27/24 01:23 Dose: 10 mcg/kg/min, 41.16 mls/hr Insulin Human Lispro (Insulin Lispro 100 Unit/Ml 3 Ml Vial) 0 unit SUBCUT Q6H [facility]; Protocol Last Admin: 11/27/24 01:55 Dose: Not Given Naloxone HCl (Naloxone Hcl 0.4 Mg/Ml Vial) 0.2 mg IVPUSH Q2M PRN PRN Reason: Excessive sedation or RR < 8 Pantoprazole Sodium (Pantoprazole Sodium 40 Mg/10 Ml Vial) 40 mg IVPUSH DAILY@0630 [facility] Home Medications ?Medication ?Instructions ?Recorded ?Confirmed ?Last Taken ?Type ascorbic acid (vitamin C) 500 mg 500 mg PO DAILY 09/22/20 11/11/24 10/30/24 History tablet fexofenadine 180 mg tablet 180 mg PO DAILY 09/22/20 11/11/24 10/30/24 History multivitamin 1 tab PO DAILY 09/12/22 11/11/24 10/30/24 History epoetin waqar 2,000 unit/mL 3,000 unit subcut Q2W 08/17/24 11/11/24 1 Month Ago History injection solution (Procrit) ~09/29/24 carvedilol 25 mg tablet 25 mg PO BID 10/30/24 11/11/24 10/30/24 History cholecalciferol (vitamin D3) 1,250 1,250 mcg PO PISANO 10/30/24 11/11/24 10/25/24 History mcg (50,000 unit) capsule Physical Exam Vital Signs: Vital Signs: Last Vital Signs Temp 97.5 F 11/27/24 04:00 Pulse 80 11/27/24 05:02 Resp 26 H 11/27/24 04:00 BP 164/69 H 11/27/24 05:02 Pulse Ox 97 11/27/24 04:00 O2 Del Method Mechanical Ventil ation 11/27/24 04:00 O2 Flow Rate 4 11/26/24 18:28 FiO2 75 11/27/24 04:00 Oxygen Flow Rate 4 11/26/24 15:36 BMI result Body Mass Index 44.1 Const: General: no acute distress Nutritional Appearance: obese HEENT: Head: Yes normocephalic and Yes atraumatic General nose exam: Normal external nose present (Nares patent, septum midline, sinuses nontender bilaterally.) Neck: Neck: Yes supple (no thyromegaly, trachea midline.) Carotids: normal carotid upstroke Resp: Auscultation: clear to auscultation bilaterally (normal work of breathing, no accessory muscle use) Cardio: Jugular venous distension: no JVD Rate: regular rate and bradycardic Rhythm: regular rhythm Heart sounds: no gallops, no murmurs and no rubs Peripheral pulses: Peripheral pulses 2+ throughout GI: Palpation (GI): Soft to palpation (nondistended.) and nontender Skin: General skin exam: no rashes or lesions noted and elasticity normal Wounds: wound noted Extrem: General: Yes full ROM, Yes capillary refill normal, Yes no clubbing, cyanosis or edema and Yes AV fistula (left upper arm: +thrill +bruit ) Results Labs 11/27/24 05:16 11/26/24 22:26 Labs: Laboratory Results - last 24 hr 11/26/24 11/26/24 11/26/24 15:11 15:54 16:12 MCV 99.2 H MCH 30.0 MCHC 30.2 L RDW 17.7 H Plt Count 345 MPV 10.1 Immature Gran % (Auto) 0.7 H Neut % (Auto) 81.2 H Lymph % (Auto) 9.9 L [place] % (Auto) 6.5 Eos % (Auto) 1.2 Baso % (Auto) 0.5 Lymph # (Auto) 1.4 [place] # (Auto) 0.9 Eos # (Auto) 0.2 Baso # (Auto) 0.1 Abs Immat Gran (auto) 0.10 H Absolute Neuts (auto) 11.0 H Absolute Nucleated RBC 0.080 H Nucleated RBC % (auto) 0.6 H VBG pH VBG pCO2 VBG pO2 VBG HCO3 VBG O2 Saturation VBG Base Excess Anion Gap Estim Creat Clear Calc Estimated GFR POC Glucose 178 H Random Glucose Lactic Acid 3.4 H* Lactic Acid F/U @ 2Hr Calcium Phosphorus Magnesium 2.3 Troponin I High Sens 727.3 H* D B-Natriuretic Peptide 649 H Urine Color Urine Appearance Urine pH Ur Specific [place] Urine Protein Urine Glucose (UA) Urine Ketones Urine Blood Urine Nitrite Ur Leukocyte Esterase Urine RBC Urine WBC Urine WBC Clumps Ur Squamous Epith Cells Urine Bacteria Hyaline Casts Gastric Occult Blood Influenza Type A (PCR) NEGATIVE Influenza Type B (PCR) NEGATIVE RSV RNA Qual (PCR) NEGATIVE SARS-CoV-2 RNA (RT-PCR) NEGATIVE Blood Type O Positive Antibody Screen NEGATIVE 11/26/24 11/26/24 11/26/24 17:07 17:15 19:01 MCV MCH MCHC RDW Plt Count MPV Immature Gran % (Auto) Neut % (Auto) Lymph % (Auto) [place] % (Auto) Eos % (Auto) Baso % (Auto) Lymph # (Auto) [place] # (Auto) Eos # (Auto) Baso # (Auto) Abs Immat Gran (auto) Absolute Neuts (auto) Absolute Nucleated RBC Nucleated RBC % (auto) VBG pH 7.35 VBG pCO2 46 VBG pO2 30 VBG HCO3 26 VBG O2 Saturation 35.0 VBG Base Excess 0.8 Anion Gap 18 Estim Creat Clear Calc 12.1 Estimated GFR 8 POC Glucose 156 H Random Glucose 209 H Lactic Acid Lactic Acid F/U @ 2Hr Calcium 7.8 L D Phosphorus Magnesium Troponin I High Sens B-Natriuretic Peptide Urine Color Urine Appearance Urine pH Ur Specific [place] Urine Protein Urine Glucose (UA) Urine Ketones Urine Blood Urine Nitrite Ur Leukocyte Esterase Urine RBC Urine WBC Urine WBC Clumps Ur Squamous Epith Cells Urine Bacteria Hyaline Casts Gastric Occult Blood Influenza Type A (PCR) Influenza Type B (PCR) RSV RNA Qual (PCR) SARS-CoV-2 RNA (RT-PCR) Blood Type Antibody Screen 11/26/24 11/26/24 11/26/24 20:28 20:32 22:18 MCV MCH MCHC RDW Plt Count MPV Immature Gran % (Auto) Neut % (Auto) Lymph % (Auto) [place] % (Auto) Eos % (Auto) Baso % (Auto) Lymph # (Auto) [place] # (Auto) Eos # (Auto) Baso # (Auto) Abs Immat Gran (auto) Absolute Neuts (auto) Absolute Nucleated RBC Nucleated RBC % (auto) VBG pH VBG pCO2 VBG pO2 VBG HCO3 VBG O2 Saturation VBG Base Excess Anion Gap 21 H Estim Creat Clear Calc 12.2 Estimated GFR 9 POC Glucose Random Glucose 253 H D Lactic Acid Lactic Acid F/U @ 2Hr 3.1 H* Calcium 7.8 L Phosphorus Magnesium Troponin I High Sens 880.8 H* B-Natriuretic Peptide 538 H Urine Color Yellow Urine Appearance Turbid Urine pH 6.5 Ur Specific [place] 1.020 Urine Protein 300 (3+) H Urine Glucose (UA) 250 H Urine Ketones Negative Urine Blood Large (3+) H Urine Nitrite Positive H Ur Leukocyte Esterase Large (3+) H Urine RBC 11-20 H Urine WBC >50 H Urine WBC Clumps Present Ur Squamous Epith Cells 0-2 Urine Bacteria 3+ Hyaline Casts 0-2 Gastric Occult Blood POSITIVE H Influenza Type A (PCR) Influenza Type B (PCR) RSV RNA Qual (PCR) SARS-CoV-2 RNA (RT-PCR) Blood Type Antibody Screen 11/26/24 11/27/24 22:26 00:14 MCV MCH MCHC RDW Plt Count MPV Immature Gran % (Auto) Neut % (Auto) Lymph % (Auto) [place] % (Auto) Eos % (Auto) Baso % (Auto) Lymph # (Auto) [place] # (Auto) Eos # (Auto) Baso # (Auto) Abs Immat Gran (auto) Absolute Neuts (auto) Absolute Nucleated RBC Nucleated RBC % (auto) VBG pH VBG pCO2 VBG pO2 VBG HCO3 VBG O2 Saturation VBG Base Excess Anion Gap Cancelled Estim Creat Clear Calc Cancelled Estimated GFR Cancelled POC Glucose 161 H Random Glucose Cancelled Lactic Acid Lactic Acid F/U @ 2Hr Calcium Cancelled Phosphorus 7.7 H Magnesium Troponin I High Sens B-Natriuretic Peptide Urine Color Urine Appearance Urine pH Ur Specific [place] Urine Protein Urine Glucose (UA) Urine Ketones Urine Blood Urine Nitrite Ur Leukocyte Esterase Urine RBC Urine WBC Urine WBC Clumps Ur Squamous Epith Cells Urine Bacteria Hyaline Casts Gastric Occult Blood Influenza Type A (PCR) Influenza Type B (PCR) RSV RNA Qual (PCR) SARS-CoV-2 RNA (RT-PCR) Blood Type Antibody Screen Imaging Radiologist's Impressions: Impressions Chest X-Ray 11/26/24 15:57 IMPRESSION: 1. Limited by habitus and apical lordotic technique. 2. Similar interstitial changes in the lower lungs. Cardiomegaly. 3. Allowing for technique, no active superimposed disease. Electronically signed by: Dereck Cuadra MD 11/26/2024 04:26 PM [facility] Assessment and Plan (1) Respiratory failure: Qualifiers: Chronicity: acute Respiratory failure complication: unspecified whether with hypoxia or hypercapnia Qualified Code(s): J96.00 - Acute respiratory failure, unspecified whether with hypoxia or hypercapnia Status: Acute (2) Cardiogenic shock: Status: Acute (3) Acute UTI: Status: Acute (4) Type 2 diabetes mellitus: Qualifiers: Diabetes mellitus complication detail: without coma Diabetes mellitus complication status: with hypoglycemia Diabetes mellitus shelter insulin use: with termite control representative use Qualified Code(s): E11.649 - Type 2 diabetes mellitus with hypoglycemia without coma; Z79.4 - terminal carman (current) use of insulin Status: Acute (5) Chronic anemia: Status: Acute (6) CKD (chronic kidney disease) stage 4, GFR 15-29 ml/min: Status: Acute (7) Paroxysmal atrial flutter: Status: Acute (8) (HFpEF) heart failure with preserved ejection fraction: Qualifiers: Heart failure chronicity: unspecified Qualified Code(s): I50.30 - Unspecified diastolic (congestive) heart failure Status: Acute Plan 69-year-old female with history of paroxysmal AFib on Eliquis, HFpEF, CKD 4 with recent left fistula (no HD yet), interstitial lung disease on chronic home O2, HTN, insulin-dependent type 2 diabetes admitted with acute respiratory failure, cardiogenic shock, UTI. Neuro: No acute issues.? Cardiac: Underlying AFib on Eliquis. HFpEF, last echo 11/02/2024. Cardiogenic shock. Atropine, dopamine for rate and pressor control. TSH. Daily weight. Monitor I&O. Elevated trop without ischemic changes on EKG. Appreciate input from cardiology.? Pulmonary: Intubated for airway protection. Underlying interstitial lung dz. No infiltrates noted on CXR, but possibly aspirated when unresponsive. Unable to perform CTA due to renal function. VQ scan. Renal: CKD 4 with recent left fistula placement. Creat 5.02 (4.2-4.7 over the last few months). Non-oliguric. Pt was supposed to see Dr Julien today to assess fistula for patency. Continue to monitor electrolytes, renal indices and I/O. Appreciate input from renal. Vascular consult placed.?? Endo:? Underlying DM2. SS insulin per protocol. GI:? No acute issues. ID: Sepsis not suspected. Treated with Zosyn for UTI. Heme/Onc:? Chronic normocytic anemia. Psych:? No acute issues. Miscellaneous:? No acute issues. Prophylaxis:? Heparin Diet:? NPO? Patient's care was discussed in detail with Dr. Webster.? He is aware of all the above as well as the plan of care for this patient. Total time managing care of this patient today: 60 minutes.
[2024-11-27 05:27] LABS: VBG HCO3 23 mmol/L (22-26); VBG pCO2 44 mmHg; VBG pH 7.31 (7.32-7.43); VBG pO2 52 mmHg
[2024-11-27 05:37] LABS: Venous Blood Gas Refer to POC result
[2024-11-27 05:42] LABS: MANUAL DIFF FLAG NO
[2024-11-27 05:47] LABS: Basophils Absolute Auto 0.1 X10*3/uL (0.0-0.2); Basophils Percent Auto 0.5 % (0-2); Eosinophils Absolute Auto 0.2 X10*3/uL (0.0-0.4); Eosinophils Percent Auto 1.2 % (0-4); Hematocrit 28.6 % (37.0-47.0); Hemoglobin 8.6 g/dl (12.0-16.0); Imm Gran Abs Auto 0.09 X10*3/uL (0.00-0.03); Imm Gran Pct Auto 0.5 % (0.0-0.4); Lymphocytes Absolute Auto 1.9 X10*3/uL (1.2-4.9); Lymphocytes Percent Auto 11.5 % (20-40); Mean Corpuscular HGB Conc 30.1 g/dl (31.0-35.0); Mean Corpuscular Hemoglobin 29.3 pg (27.0-33.0); Mean Corpuscular Volume 97.3 fL (80.0-98.0); Mean Platelet Volume 10.1 fL (9.4-12.3); Monocytes Absolute Auto 1.1 X10*3/uL (0.1-1.2); Monocytes Percent Auto 6.6 % (2-11); NRBC Pct Auto 0.3 /100WBC (0.0-0.2); Neutrophils Absolute Auto 13.1 x10*3/uL (2.0-8.3); Neutrophils Percent Auto 79.7 % (45-73); Platelet Count 408 X10*3/uL (160-400); Red Blood Count 2.94 X10*6/uL (4.20-5.50); Red Cell Distribution Width 17.7 % (11.0-16.0); White Blood Count 16.5 X10*3/uL (4.8-10.8)
[2024-11-27] MEDS: Pantoprazole Sodium 40 MG/10 ML VIAL IVPUSH (06:06)
[2024-11-27] MEDS: fentaNYL citrate/NS 1,000 MCG/100 ML PLAST..BAG 17.5 MCG IVCONT (06:12)
[2024-11-27 06:16] LABS: Alanine Aminotransferase 377 U/L (0-31); Albumin Level 3.2 g/dL (3.5-5.0); Alkaline Phosphatase 168 U/L (39-117); Anion Gap 22 (12-20); Aspartate Amino Transferase 540 U/L (5-31); Bilirubin Total 0.2 mg/dL (0.0-1.0); Blood Urea Nitrogen 70 mg/dL (9-16); Calcium 8.2 mg/dL (8.4-10.2); Carbon Dioxide 19 mmol/L (22-29); Chloride 105 mmol/L (96-108); Creatinine Clr Calc Pharmacy 11.9; Estimated Glomerular Filt Rate 8; Glucose Random 241 mg/dL (60-115); Magnesium 2.3 mg/dL (1.6-2.6); Potassium 4.5 mmol/L (3.3-5.1); Sodium 141 mmol/L (135-145); Total Protein 7.1 g/dL (6.5-8.0)
[2024-11-27 06:17] LABS: Troponin-I High Sensitivity 2510.3 ng/L (<3.5-17.0)
[2024-11-27] MEDS: Insulin Lispro 100 UNIT/ML 3 ML VIAL SUBCUT ×2 (06:23→11:39)
[2024-11-27] MEDS: Piperacillin Sodium/Tazobactam 2.25 GM in 0.9 % Sodium Chloride 50 ML IV (06:24)
[2024-11-27 06:27] LABS: TSH reflex Free T4 4.41 uIU/mL (0.32-4.0)
--- NOTE | 2024-11-27 06:33 | ECG_ITS ---
Test Reason : atkinm Blood Pressure : */* mmHG Vent. Rate : 64 BPM Atrial Rate : * BPM P-R Int : * ms QRS Dur : 96 ms QT Int : 460 ms P-R-T Axes : * 39 19 degrees QTcB Int : 474 ms Junctional rhythm with PACs Nonspecific ST abnormality Abnormal ECG When compared with ECG of 26-Nov-2024 19:17, Junctional rhythm present Referred By: Bryson Webster Electronically Signed By: Robles Mike
[2024-11-27] MEDS: Norepinephrine Bitartrate/D5W 8 MG/250 ML PLAST..BAG 20.49 MG IVCONT (06:36)
[2024-11-27] MEDS: DOPamine HCL/D5W 400 MG/250 ML PLAST..BAG 61.75 MG IVCONT (06:39)
[2024-11-27 07:05] LABS: Free T4 (Free Thyroxine) 0.82 ng/dL (0.71-1.85)
[2024-11-27] MEDS: EPINEPHrine 1 MG/10 ML SYRINGE IVPUSH ×3 (07:56→11:20)
[2024-11-27] MEDS: Chlorhexidine Gluc Oral Rinse 15 ML MOUTHWASH BUCCAL ×2 (08:27→16:42)
[2024-11-27] MEDS: Heparin Sodium,Porcine 5,000 UNIT/ML VIAL 5000 UNIT SUBCUT (08:27)
[2024-11-27 08:35] LABS: Troponin-I High Sensitivity 880.8 ng/L (<3.5-17.0)
[2024-11-27 08:42] LABS: Creatinine Clr Calc Pharmacy 12.3
[2024-11-27] MEDS: vancomycin/NS 2,000 MG/500 ML PLAST..BAG 250 MG IV (09:30)
--- NOTE | 2024-11-27 10:05 | PHA.PROG ---
Admission Date/Time: November 26, 2024 21:18 Indication: Weight in k.3 kg Adjusted body weight in K.98 kg [place] body weight in K.1 Obesity Dosing Indication % IBW: Serum Creatinine - Last 168 Hours 11/26/24 11/26/24 11/26/24 17:07 20:28 22:26 Creatinine 5.05 H* 5.02 H* Cancelled 11/27/24 05:16 Creatinine 5.10 H* Estimated CrCl and GFR - Last 168 Hours 11/26/24 11/26/24 11/26/24 17:07 20:28 22:26 Estim Creat Clear Calc 12.1 12.3 Cancelled Estimated GFR 8 9 Cancelled 11/27/24 05:16 Estim Creat Clear Calc 11.9 Estimated GFR 8 Vancomycin Loading Dose: 2000 mg x 1 Current Vancomycin Dosing Regimen: dose based on level Vancomycin Monitoring using AUC goal of 400 - 600 range with trough as surrogate marker: Date and Time for next Vancomycin Level to be drawn: random 11/28/24 @0900 Pharmacist Comments on Vancomycin plan:dose based on level. patient has renal dysfunction and BMI = 45.3 Vancomycin dosing will take advantage of [employer] as a clinical decision support tool that uses Bayesian modeling to calculate individual patient's pharmacokinetic parameters and forecast the patient's drug concentration time course with the target goal AUC 24 range of 400 - 600 mg/L/hr.
--- NOTE | 2024-11-27 10:21 | PM.CNGS ---
History of Present Illness Consult details Consult date: 11/27/24 Reason for consult: other (Dialysis access) Narrative: 69-year-old female well known to us status post left upper extremity brachiocephalic fistula placement on 10/19/2024 presents for re-evaluation. She presented to the emergency department yesterday with dyspnea and shortness of breath. During her emergency room course she became extremely bradycardic with agonal breathing. In addition she had 2nd pauses. She was subsequently intubated and started on pressors. At the time of my examination manufacturing sr engineer was present in the room. Concern was for cardiogenic shock. Last GFR is stable at 8. Review of Systems Review of Systems: Yes unobtainable due to endotracheal tube Musculoskeletal: Musculoskeletal: Denies radiating pain into limb PMFSH Past Medical History Medical History Heartburn On anticoagulant therapy Interstitial lung disease Respiratory failure with hypoxia Cough Exercise hypoxemia MRSA carrier CAP (community acquired pneumonia) Morbid (severe) obesity due to excess calories Heme positive stool Atrial flutter Elevated serum creatinine AMY on CPAP Chronic renal failure Secondary aldosteronism Acute renal failure Nocturnal hypoxemia Morbid obesity Diabetes type 2, controlled Oxygen dependent HTN (hypertension) Morbid obesity due to excess calories AMY (obstructive sleep apnea) Pneumonia Obesity Elevated creatine kinase Anemia Congestive heart failure High cholesterol Diabetes type 2, uncontrolled Hypertension, essential Family History Family History Father Stroke Mother Stroke Hypertension Diabetes Maternal Grandmother Diabetes Hypertension Stroke Sister Diabetes Breast cancer Son Bipolar 1 disorder Overweight Other Mental health problem Substance abuse Surgical History Surgical History H/O colonoscopy History of surgery History of D&C Social History Social History Household Members: Unknown / Unable to assess Housing: Unknown / Unable to assess Are you a primary healthcare corporate account director to a significant other at home: No Do you presently have visiting nurse or other home services: No Unable to assess alcohol history related to: Unable to respond Alcohol intake: current Alcohol intake frequency: does not drink Comment: pt was medicated Patient Tobacco Use Status: Former Tobacco user Smoked in Last 30 Days: No e-Cigarette/Vaping Use: Never Used Second Hand Smoke Exposure: No Use of substances other than those prescribed or required for medical reasons: Unable to respond Currently Displaying Signs/Symptoms of Drug Intoxication Withdrawal: No Advance Directives: Yes Advance Directives on File: Yes Advance Directives Date on File: 06/09/21 Do you have a plan to hurt others: No Plan Recently lost weight without trying: Unsure Nutrition Risks: No Nutritional Risk Patient : No service: No Current occupational status: retired Cognitive needs: No Hearing needs: No Vision needs: Yes Meds Allergies Allergy/AdvReac Type Severity Reaction Status Date / Time penicillin V Allergy Severe joint Verified 11/26/24 15:37 swelling and rash amlodipine [From [facility]] AdvReac Intermediate edema Verified 11/26/24 15:37 Active Medications: Current Medications Chlorhexidine Gluconate (Chlorhexidine Gluc Oral Rinse 15 Ml Mouthwash) 15 ml BUCCAL TID [facility] Last Admin: 11/27/24 08:27 Dose: 15 ml Dextrose (Dextrose 50 % 25 Gm/50 Ml Syringe) 25 gm IVPUSH Q15M PRN; Protocol PRN Reason: per Hypoglycemia Standing Ord. Glucose (Glucose Gel 15 Gm Gel..Gram.) 15 gm PO Q15M PRN; Protocol PRN Reason: per Hypoglycemia Standing Ord. Heparin Sodium (Porcine) (Heparin Sodium,Porcine 5,000 Unit/Ml Vial) 5,000 unit SUBCUT Q8H [facility] Last Admin: 11/27/24 08:27 Dose: 5,000 unit Fentanyl (Sublimaze/Ns) 1,000 mcg in 100 mls @ 0 mls/hr IVCONT .Q0M [facility]; Protocol Last Titration: 11/27/24 06:35 Dose: 150 mcg/hr, 15 mls/hr Propofol (Diprivan) 1,000 mg in 100 mls @ 0 mls/hr IVCONT .Q0M [facility]; Protocol Last Titration: 11/27/24 02:11 Dose: 10 mcg/kg/min, 6.59 mls/hr Dopamine HCl/Dextrose (Dopamine Hcl/D5w) 400 mg in 250 mls @ 0 mls/hr IVCONT .Q0M [facility]; Protocol Last Titration: 11/27/24 10:09 Dose: 5 mcg/kg/min, 20.58 mls/hr Piperacillin Sod/Tazobactam (Sod 2.25 gm/ Sodium Chloride) 50 mls @ 100 mls/hr IV Q8H [facility] Last Infusion: 11/27/24 07:21 Dose: Infused Norepinephrine Bitartrate (Levophed) 8 mg in 250 mls @ 0 mls/hr IVCONT .Q0M [facility]; Protocol Last Titration: 11/27/24 09:33 Dose: 0.05 mcg/kg/min, 10.25 mls/hr Vancomycin HCl (Vancomycin/Ns) 2,000 mg in 500 mls @ 250 mls/hr IV ONCE ONE Stop: 11/27/24 10:58 Last Admin: 11/27/24 09:30 Dose: 250 mls/hr Epinephrine 5 mg/ Sodium (Chloride) 255 mls @ 0 mls/hr IVCONT .Q0M [facility]; Protocol Last Admin: 11/27/24 10:00 Dose: 0.2 mcg/kg/min, 68.73 mls/hr Vancomycin HCl 500 mg/ Sodium (Chloride) 110 mls @ 110 mls/hr IV ONCE ONE Stop: 11/27/24 11:14 Insulin Human Lispro (Insulin Lispro 100 Unit/Ml 3 Ml Vial) 0 unit SUBCUT Q6H [facility]; Protocol Last Admin: 11/27/24 06:23 Dose: 4 unit Naloxone HCl (Naloxone Hcl 0.4 Mg/Ml Vial) 0.2 mg IVPUSH Q2M PRN PRN Reason: Excessive sedation or RR < 8 Pantoprazole Sodium (Pantoprazole Sodium 40 Mg/10 Ml Vial) 40 mg IVPUSH DAILY@0630 [facility] Last Admin: 11/27/24 06:06 Dose: 40 mg Pharmacy Consult (Consult Rx Vancomycin Dosing) 1 each MISCELLANE DAILY PRN PRN Reason: Consult order Home Medications ?Medication ?Instructions ?Recorded ?Confirmed ?Last Taken ?Type ascorbic acid (vitamin C) 500 mg 500 mg PO DAILY 09/22/20 11/11/24 10/30/24 History tablet fexofenadine 180 mg tablet 180 mg PO DAILY 09/22/20 11/11/24 10/30/24 History multivitamin 1 tab PO DAILY 09/12/22 11/11/24 10/30/24 History epoetin waqar 2,000 unit/mL 3,000 unit subcut Q2W 08/17/24 11/11/24 1 Month Ago History injection solution (Procrit) ~09/29/24 carvedilol 25 mg tablet 25 mg PO BID 10/30/24 11/11/24 10/30/24 History cholecalciferol (vitamin D3) 1,250 1,250 mcg PO PISANO 10/30/24 11/11/24 10/25/24 History mcg (50,000 unit) capsule Physical Exam Vital Signs: Vital Signs: Last Vital Signs Temp 99.7 F 11/27/24 10:00 Pulse 106 H 11/27/24 10:09 Resp 23 H 11/27/24 10:00 BP 166/66 H 11/27/24 10:09 Pulse Ox 100 11/27/24 10:00 O2 Del Method Mechanical Ventil ation 11/27/24 10:00 O2 Flow Rate 4 11/26/24 18:28 FiO2 80 11/27/24 10:00 Oxygen Flow Rate 4 11/26/24 15:36 BMI result Body Mass Index 45.3 Const: Other: Intubated and sedated General: cooperative HEENT: Head: Yes normal to inspection Neck: Neck: Yes normal visual inspection Carotids: no bruits Chest: Chest palpation & inspection: normal inspection of the chest Resp: Effort & Inspection: normal respiratory effort and able to speak in complete sentences Auscultation: clear to auscultation bilaterally, no crackles, no rales, no rhonchi and no wheezes Cardio: Rate: regular rate Rhythm: regular rhythm Heart sounds: S1 normal heart sound present and S2 normal heart sound present Bruits: no carotid bruits Peripheral pulses: Peripheral pulses 2+ throughout GI: Inspection: Yes normal to inspection Skin: Wounds: no wounds Hair: normal Neuro: Cranial nerves: Yes CN's II-XII intact bilaterally Cognition (Neuro): normal cognition Motor exam (neuro): 5/5 motor strength present throughout Extrem: Other: venous exam: No significant superficial varicosities or spider telangiectasias, minimal edema General: No clubbing, No cyanosis and No edema Psych: Appearance: grossly normal Mental Status: mental status grossly normal Speech and movement: Normal speech and movement present Results Labs 11/27/24 05:16 11/27/24 05:16 Labs: Abnormal lab results 11/26/24 11/26/24 11/26/24 Range/Units 15:11 15:54 16:12 WBC 13.6 H (4.8-10.8) X10*3/uL RBC 2.60 L (4.20-5.50) X10*6/uL Hgb 7.8 L (12.0-16.0) g/dl Hct 25.8 L (37.0-47.0) % MCV 99.2 H (80.0-98.0) fL MCHC 30.2 L (31.0-35.0) g/dl RDW 17.7 H (11.0-16.0) % Plt Count (160-400) X10*3/uL Immature Gran % (Auto) 0.7 H (0.0-0.4) % Neut % (Auto) 81.2 H (45-73) % Lymph % (Auto) 9.9 L (20-40) % Abs Immat Gran (auto) 0.10 H (0.00-0.03) X10*3/uL Absolute Neuts (auto) 11.0 H (2.0-8.3) x10*3/uL Absolute Nucleated RBC 0.080 H (0.0-0.012) X10*3/uL Nucleated RBC % (auto) 0.6 H (0.0-0.2) /100WBC VBG pH (7.32-7.43) Potassium (3.3-5.1) mmol/L Carbon Dioxide (22-29) mmol/L Anion Gap (12-20) BUN (9-16) mg/dL Creatinine (0.5-1.4) mg/dL POC Glucose 178 H (60-115) mg/dL Random Glucose (60-115) mg/dL Lactic Acid 3.4 H* (0.5-2.0) mmol/L Lactic Acid F/U @ 2Hr (0.5-2.0) mmol/L Calcium (8.4-10.2) mg/dL Phosphorus (2.7-4.5) mg/dL AST (5-31) U/L ALT (0-31) U/L Alkaline Phosphatase (39-117) U/L Troponin I High Sens 727.3 H* D (<3.5-17.0) ng/L B-Natriuretic Peptide 649 H (<100) pg/mL Albumin (3.5-5.0) g/dL TSH (0.32-4.0) uIU/mL Urine Protein (Neg-Trace) mg/dL Urine Glucose (UA) (Negative) mg/dL Urine Blood (Negative) Urine Nitrite (Negative) Ur Leukocyte Esterase (Negative) Urine RBC (0-2) /HPF Urine WBC (0-5) /HPF Gastric Occult Blood (NEG) 11/26/24 11/26/24 11/26/24 Range/Units 17:07 19:01 20:28 WBC (4.8-10.8) X10*3/uL RBC (4.20-5.50) X10*6/uL Hgb (12.0-16.0) g/dl Hct (37.0-47.0) % MCV (80.0-98.0) fL MCHC (31.0-35.0) g/dl RDW (11.0-16.0) % Plt Count (160-400) X10*3/uL Immature Gran % (Auto) (0.0-0.4) % Neut % (Auto) (45-73) % Lymph % (Auto) (20-40) % Abs Immat Gran (auto) (0.00-0.03) X10*3/uL Absolute Neuts (auto) (2.0-8.3) x10*3/uL Absolute Nucleated RBC (0.0-0.012) X10*3/uL Nucleated RBC % (auto) (0.0-0.2) /100WBC VBG pH (7.32-7.43) Potassium 5.5 H (3.3-5.1) mmol/L Carbon Dioxide 20 L 17 L (22-29) mmol/L Anion Gap 21 H (12-20) BUN 68 H 69 H (9-16) mg/dL Creatinine 5.05 H* 5.02 H* (0.5-1.4) mg/dL POC Glucose 156 H (60-115) mg/dL Random Glucose 209 H 253 H D (60-115) mg/dL Lactic Acid (0.5-2.0) mmol/L Lactic Acid F/U @ 2Hr 3.1 H* (0.5-2.0) mmol/L Calcium 7.8 L D 7.8 L (8.4-10.2) mg/dL Phosphorus (2.7-4.5) mg/dL AST (5-31) U/L ALT (0-31) U/L Alkaline Phosphatase (39-117) U/L Troponin I High Sens 880.8 H* (<3.5-17.0) ng/L B-Natriuretic Peptide 538 H (<100) pg/mL Albumin (3.5-5.0) g/dL TSH (0.32-4.0) uIU/mL Urine Protein (Neg-Trace) mg/dL Urine Glucose (UA) (Negative) mg/dL Urine Blood (Negative) Urine Nitrite (Negative) Ur Leukocyte Esterase (Negative) Urine RBC (0-2) /HPF Urine WBC (0-5) /HPF Gastric Occult Blood (NEG) 11/26/24 11/26/24 11/26/24 Range/Units 20:32 22:18 22:26 WBC (4.8-10.8) X10*3/uL RBC (4.20-5.50) X10*6/uL Hgb (12.0-16.0) g/dl Hct (37.0-47.0) % MCV (80.0-98.0) fL MCHC (31.0-35.0) g/dl RDW (11.0-16.0) % Plt Count (160-400) X10*3/uL Immature Gran % (Auto) (0.0-0.4) % Neut % (Auto) (45-73) % Lymph % (Auto) (20-40) % Abs Immat Gran (auto) (0.00-0.03) X10*3/uL Absolute Neuts (auto) (2.0-8.3) x10*3/uL Absolute Nucleated RBC (0.0-0.012) X10*3/uL Nucleated RBC % (auto) (0.0-0.2) /100WBC VBG pH (7.32-7.43) Potassium (3.3-5.1) mmol/L Carbon Dioxide (22-29) mmol/L Anion Gap (12-20) BUN (9-16) mg/dL Creatinine (0.5-1.4) mg/dL POC Glucose (60-115) mg/dL Random Glucose (60-115) mg/dL Lactic Acid (0.5-2.0) mmol/L Lactic Acid F/U @ 2Hr (0.5-2.0) mmol/L Calcium (8.4-10.2) mg/dL Phosphorus 7.7 H (2.7-4.5) mg/dL AST (5-31) U/L ALT (0-31) U/L Alkaline Phosphatase (39-117) U/L Troponin I High Sens (<3.5-17.0) ng/L B-Natriuretic Peptide (<100) pg/mL Albumin (3.5-5.0) g/dL TSH (0.32-4.0) uIU/mL Urine Protein 300 (3+) H (Neg-Trace) mg/dL Urine Glucose (UA) 250 H (Negative) mg/dL Urine Blood Large (3+) H (Negative) Urine Nitrite Positive H (Negative) Ur Leukocyte Esterase Large (3+) H (Negative) Urine RBC 11-20 H (0-2) /HPF Urine WBC >50 H (0-5) /HPF Gastric Occult Blood POSITIVE H (NEG) 11/27/24 11/27/24 11/27/24 Range/Units 00:14 05:16 05:22 WBC 16.5 H (4.8-10.8) X10*3/uL RBC 2.94 L (4.20-5.50) X10*6/uL Hgb 8.6 L (12.0-16.0) g/dl Hct 28.6 L (37.0-47.0) % MCV (80.0-98.0) fL MCHC 30.1 L (31.0-35.0) g/dl RDW 17.7 H (11.0-16.0) % Plt Count 408 H (160-400) X10*3/uL Immature Gran % (Auto) 0.5 H (0.0-0.4) % Neut % (Auto) 79.7 H (45-73) % Lymph % (Auto) 11.5 L (20-40) % Abs Immat Gran (auto) 0.09 H (0.00-0.03) X10*3/uL Absolute Neuts (auto) 13.1 H (2.0-8.3) x10*3/uL Absolute Nucleated RBC 0.050 H (0.0-0.012) X10*3/uL Nucleated RBC % (auto) 0.3 H (0.0-0.2) /100WBC VBG pH 7.31 L (7.32-7.43) Potassium (3.3-5.1) mmol/L Carbon Dioxide 19 L (22-29) mmol/L Anion Gap 22 H (12-20) BUN 70 H (9-16) mg/dL Creatinine 5.10 H* (0.5-1.4) mg/dL POC Glucose 161 H (60-115) mg/dL Random Glucose 241 H (60-115) mg/dL Lactic Acid (0.5-2.0) mmol/L Lactic Acid F/U @ 2Hr (0.5-2.0) mmol/L Calcium 8.2 L (8.4-10.2) mg/dL Phosphorus (2.7-4.5) mg/dL AST 540 H (5-31) U/L ALT 377 H (0-31) U/L Alkaline Phosphatase 168 H (39-117) U/L Troponin I High Sens 2510.3 H* D (<3.5-17.0) ng/L B-Natriuretic Peptide (<100) pg/mL Albumin 3.2 L (3.5-5.0) g/dL TSH 4.41 H (0.32-4.0) uIU/mL Urine Protein (Neg-Trace) mg/dL Urine Glucose (UA) (Negative) mg/dL Urine Blood (Negative) Urine Nitrite (Negative) Ur Leukocyte Esterase (Negative) Urine RBC (0-2) /HPF Urine WBC (0-5) /HPF Gastric Occult Blood (NEG) Short CBC 11/26/24 11/27/24 Range/Units 16:12 05:16 WBC 13.6 H 16.5 H (4.8-10.8) X10*3/uL Hgb 7.8 L 8.6 L (12.0-16.0) g/dl Hct 25.8 L 28.6 L (37.0-47.0) % Plt Count 345 408 H (160-400) X10*3/uL BMP 11/26/24 11/26/24 11/26/24 17:07 20:28 22:26 Sodium 139 140 Cancelled Potassium 5.5 H 4.7 Cancelled Chloride 107 107 Carbon Dioxide 20 L 17 L BUN 68 H 69 H Creatinine 5.05 H* 5.02 H* Calcium 7.8 L D 7.8 L 11/26/24 11/27/24 22:26 05:16 Sodium 141 Potassium 4.6 4.5 Chloride Cancelled 105 Carbon Dioxide Cancelled 19 L BUN Cancelled 70 H Creatinine Cancelled 5.10 H* Calcium Cancelled 8.2 L Liver Function 11/27/24 Range/Units 05:16 Total Bilirubin 0.2 (0.0-1.0) mg/dL AST 540 H (5-31) U/L ALT 377 H (0-31) U/L Alkaline Phosphatase 168 H (39-117) U/L Albumin 3.2 L (3.5-5.0) g/dL Urine 11/26/24 11/26/24 11/26/24 Range/Units 20:32 20:32 20:32 Urine Color Cancelled Yellow Urine Appearance Cancelled Turbid Urine pH Cancelled Ur Specific [place] Urine Protein Urine Glucose (UA) 11/26/24 11/26/24 11/26/24 Range/Units 20:32 20:32 20:32 Urine Color Urine Appearance Urine pH 6.5 Ur Specific [place] Cancelled 1.020 Urine Protein Cancelled 300 (3+) H Urine Glucose (UA) Cancelled 11/26/24 Range/Units 20:32 Urine Color Urine Appearance Urine pH Ur Specific [place] Urine Protein Urine Glucose (UA) 250 H All other labs normal. Assessment and Plan (1) CKD (chronic kidney disease): Qualifiers: Chronic kidney disease stage: unspecified stage Qualified Code(s): N18.9 - Chronic kidney disease, unspecified Status: Acute Plan In short patient is in cardiogenic shock. She is requiring multiple pressors. I was unable to appreciate a thrill or bruit on the fistula itself. This may be secondary to hypotension or may have even clotted off during this entire episode. If dialysis is required she will require temporary line or PermCath. We can readdress the fistula once she improves as an outpatient. Thank you for allowing us to assist in her care. If there are any questions or concerns please do not hesitate to contact us. Procedures Date of Service Date of Service: 11/27/24
--- NOTE | 2024-11-27 10:26 | PM.CNCAR ---
History of Present Illness History of Present Illness Date of Service: 11/27/24 Requesting physician: Bryson Webster Chief complaint: Symptomatic bradycardia Narrative: 69-year-old female who we have been asked to see for symptomatic bradycardia. She presented yesterday with hypotension. By ER report initially she was not in any heart failure and was given some IV fluids. Later she was noticed to be short of breath and had episode of bradycardia. Difficult to say what happened 1st but she ended up being intubated at that stage. She was on vasopressors. Overnight she has required dopamine, Levophed and epinephrine mostly for heart rate management. She also had episodes of bradycardia with significant hypotension and required transcutaneous pacing. Currently she is not being transcutaneously paced but is on dopamine 10, Levophed and epi. Her blood pressure is high at times in 190s and purely these medications are given to her for bradycardia. Telemetry reviewed which showed mostly junctional rhythm but in between she had some sinus beats. [facility] Past Medical History Medical History Heartburn On anticoagulant therapy Interstitial lung disease Respiratory failure with hypoxia Cough Exercise hypoxemia MRSA carrier CAP (community acquired pneumonia) Morbid (severe) obesity due to excess calories Heme positive stool Atrial flutter Elevated serum creatinine AMY on CPAP Chronic renal failure Secondary aldosteronism Acute renal failure Nocturnal hypoxemia Morbid obesity Diabetes type 2, controlled Oxygen dependent HTN (hypertension) Morbid obesity due to excess calories AMY (obstructive sleep apnea) Pneumonia Obesity Elevated creatine kinase Anemia Congestive heart failure High cholesterol Diabetes type 2, uncontrolled Hypertension, essential Family History Family History Father Stroke Mother Stroke Hypertension Diabetes Maternal Grandmother Diabetes Hypertension Stroke Sister Diabetes Breast cancer Son Bipolar 1 disorder Overweight Other Mental health problem Substance abuse Surgical History Surgical History H/O colonoscopy History of surgery History of D&C Social History Social History Household Members: Unknown / Unable to assess Housing: Unknown / Unable to assess Are you a primary care transition coordinator to a significant other at home: No Do you presently have visiting nurse or other home services: No Unable to assess alcohol history related to: Unable to respond Alcohol intake: current Alcohol intake frequency: does not drink Comment: pt was medicated Patient Tobacco Use Status: Former Tobacco user Smoked in Last 30 Days: No e-Cigarette/Vaping Use: Never Used Second Hand Smoke Exposure: No Use of substances other than those prescribed or required for medical reasons: Unable to respond Currently Displaying Signs/Symptoms of Drug Intoxication Withdrawal: No Advance Directives: Yes Advance Directives on File: Yes Advance Directives Date on File: 06/09/21 Do you have a plan to hurt others: No Plan Recently lost weight without trying: Unsure Nutrition Risks: No Nutritional Risk Patient : No service: No Current occupational status: retired Cognitive needs: No Hearing needs: No Vision needs: Yes Meds Allergies Allergy/AdvReac Type Severity Reaction Status Date / Time penicillin V Allergy Severe joint Verified 11/26/24 15:37 swelling and rash amlodipine [From [facility]] AdvReac Intermediate edema Verified 11/26/24 15:37 Active Medications: Current Medications Chlorhexidine Gluconate (Chlorhexidine Gluc Oral Rinse 15 Ml Mouthwash) 15 ml BUCCAL TID [facility] Last Admin: 11/27/24 08:27 Dose: 15 ml Dextrose (Dextrose 50 % 25 Gm/50 Ml Syringe) 25 gm IVPUSH Q15M PRN; Protocol PRN Reason: per Hypoglycemia Standing Ord. Glucose (Glucose Gel 15 Gm Gel..Gram.) 15 gm PO Q15M PRN; Protocol PRN Reason: per Hypoglycemia Standing Ord. Heparin Sodium (Porcine) (Heparin Sodium,Porcine 5,000 Unit/Ml Vial) 5,000 unit SUBCUT Q8H [facility] Last Admin: 11/27/24 08:27 Dose: 5,000 unit Fentanyl (Sublimaze/Ns) 1,000 mcg in 100 mls @ 0 mls/hr IVCONT .Q0M [facility]; Protocol Last Titration: 11/27/24 06:35 Dose: 150 mcg/hr, 15 mls/hr Propofol (Diprivan) 1,000 mg in 100 mls @ 0 mls/hr IVCONT .Q0M [facility]; Protocol Last Titration: 11/27/24 02:11 Dose: 10 mcg/kg/min, 6.59 mls/hr Dopamine HCl/Dextrose (Dopamine Hcl/D5w) 400 mg in 250 mls @ 0 mls/hr IVCONT .Q0M [facility]; Protocol Last Titration: 11/27/24 10:09 Dose: 5 mcg/kg/min, 20.58 mls/hr Piperacillin Sod/Tazobactam (Sod 2.25 gm/ Sodium Chloride) 50 mls @ 100 mls/hr IV Q8H [facility] Last Infusion: 11/27/24 07:21 Dose: Infused Norepinephrine Bitartrate (Levophed) 8 mg in 250 mls @ 0 mls/hr IVCONT .Q0M [facility]; Protocol Last Titration: 11/27/24 09:45 Dose: 0 mcg/kg/min, 0 mls/hr Vancomycin HCl (Vancomycin/Ns) 2,000 mg in 500 mls @ 250 mls/hr IV ONCE ONE Stop: 11/27/24 10:58 Last Admin: 11/27/24 09:30 Dose: 250 mls/hr Epinephrine 5 mg/ Sodium (Chloride) 255 mls @ 0 mls/hr IVCONT .Q0M [facility]; Protocol Last Admin: 11/27/24 10:00 Dose: 0.2 mcg/kg/min, 68.73 mls/hr Vancomycin HCl 500 mg/ Sodium (Chloride) 110 mls @ 110 mls/hr IV ONCE ONE Stop: 11/27/24 11:14 Insulin Human Lispro (Insulin Lispro 100 Unit/Ml 3 Ml Vial) 0 unit SUBCUT Q6H [facility]; Protocol Last Admin: 11/27/24 06:23 Dose: 4 unit Naloxone HCl (Naloxone Hcl 0.4 Mg/Ml Vial) 0.2 mg IVPUSH Q2M PRN PRN Reason: Excessive sedation or RR < 8 Pantoprazole Sodium (Pantoprazole Sodium 40 Mg/10 Ml Vial) 40 mg IVPUSH DAILY@0630 [facility] Last Admin: 11/27/24 06:06 Dose: 40 mg Pharmacy Consult (Consult Rx Vancomycin Dosing) 1 each MISCELLANE DAILY PRN PRN Reason: Consult order Home Medications ?Medication ?Instructions ?Recorded ?Confirmed ?Last Taken ?Type ascorbic acid (vitamin C) 500 mg 500 mg PO DAILY 09/22/20 11/27/24 10/30/24 History tablet fexofenadine 180 mg tablet 180 mg PO DAILY 09/22/20 11/27/24 10/30/24 History multivitamin 1 tab PO DAILY 09/12/22 11/27/24 10/30/24 History epoetin waqar 2,000 unit/mL 3,000 unit subcut Q2W 08/17/24 11/27/24 1 Month Ago History injection solution (Procrit) ~09/29/24 carvedilol 25 mg tablet 25 mg PO BID 10/30/24 11/27/24 10/30/24 History cholecalciferol (vitamin D3) 1,250 1,250 mcg PO PISANO 10/30/24 11/27/24 10/25/24 History mcg (50,000 unit) capsule insulin glargine 100 unit/mL (3 36 unit subcut BEDTIME 11/27/24 11/27/24 Unknown History mL) subcutaneous pen (Lantus Solostar U-100 Insulin) insulin glargine 100 unit/mL (3 38 unit subcut DAILY 11/27/24 11/27/24 Unknown History mL) subcutaneous pen (Lantus Solostar U-100 Insulin) tirzepatide 5 mg/0.5 mL 5 mg subcut MO 11/27/24 11/27/24 11/23/24 History subcutaneous pen injector (Mounjaro) Physical Exam Vital Signs: Vital Signs: Last Vital Signs Temp 99.7 F 11/27/24 10:00 Pulse 106 H 11/27/24 10:09 Resp 23 H 11/27/24 10:00 BP 166/66 H 11/27/24 10:09 Pulse Ox 100 11/27/24 10:00 O2 Del Method Mechanical Ventil ation 11/27/24 10:00 O2 Flow Rate 4 11/26/24 18:28 FiO2 80 11/27/24 10:00 Oxygen Flow Rate 4 11/26/24 15:36 BMI result Body Mass Index 45.3 GENERAL APPEARANCE: Sedated and intubated. NECK: no carotid bruit, no jugular venous distention. SKIN: no suspicious lesions, warm and dry. HEART: Systolic murmur aortic area, regular rate and rhythm. LUNGS: clear to auscultation anteriorly. ABDOMEN: soft. PERIPHERAL PULSES: equal. NEUROLOGIC: Sedated and intubated. Objective Labs and Meds 11/27/24 05:16 11/27/24 05:16 Lab results: Laboratory Results - last 24 hr 02/06/25 02/06/25 02/06/25 15:11 15:54 16:12 WBC 13.6 H RBC 2.60 L Hgb 7.8 L Hct 25.8 L MCV 99.2 H MCH 30.0 MCHC 30.2 L RDW 17.7 H Plt Count 345 MPV 10.1 Immature Gran % (Auto) 0.7 H Neut % (Auto) 81.2 H Lymph % (Auto) 9.9 L [place] % (Auto) 6.5 Eos % (Auto) 1.2 Baso % (Auto) 0.5 Lymph # (Auto) 1.4 [place] # (Auto) 0.9 Eos # (Auto) 0.2 Baso # (Auto) 0.1 Abs Immat Gran (auto) 0.10 H Absolute Neuts (auto) 11.0 H Absolute Nucleated RBC 0.080 H Nucleated RBC % (auto) 0.6 H VBG pH VBG pCO2 VBG pO2 VBG HCO3 VBG O2 Saturation VBG Base Excess Sodium Potassium Chloride Carbon Dioxide Anion Gap BUN Creatinine Estim Creat Clear Calc Estimated GFR POC Glucose 178 H Random Glucose Lactic Acid 3.4 H* Lactic Acid F/U @ 2Hr Calcium Phosphorus Magnesium 2.3 Total Bilirubin AST ALT Alkaline Phosphatase Troponin I High Sens 727.3 H* D B-Natriuretic Peptide 649 H Total Protein Albumin TSH Free T4 Urine Color Urine Appearance Urine pH Ur Specific [place] Urine Protein Urine Glucose (UA) Urine Ketones Urine Blood Urine Nitrite Ur Leukocyte Esterase Urine RBC Urine WBC Urine WBC Clumps Ur Squamous Epith Cells Urine Bacteria Hyaline Casts Gastric Occult Blood Influenza Type A (PCR) NEGATIVE Influenza Type B (PCR) NEGATIVE RSV RNA Qual (PCR) NEGATIVE SARS-CoV-2 RNA (RT-PCR) NEGATIVE Blood Type O Positive Antibody Screen NEGATIVE 11/26/24 11/26/24 11/26/24 17:07 17:15 19:01 WBC RBC Hgb Hct MCV MCH MCHC RDW Plt Count MPV Immature Gran % (Auto) Neut % (Auto) Lymph % (Auto) [place] % (Auto) Eos % (Auto) Baso % (Auto) Lymph # (Auto) [place] # (Auto) Eos # (Auto) Baso # (Auto) Abs Immat Gran (auto) Absolute Neuts (auto) Absolute Nucleated RBC Nucleated RBC % (auto) VBG pH 7.35 VBG pCO2 46 VBG pO2 30 VBG HCO3 26 VBG O2 Saturation 35.0 VBG Base Excess 0.8 Sodium 139 Potassium 5.5 H Chloride 107 Carbon Dioxide 20 L Anion Gap 18 BUN 68 H Creatinine 5.05 H* Estim Creat Clear Calc 12.1 Estimated GFR 8 POC Glucose 156 H Random Glucose 209 H Lactic Acid Lactic Acid F/U @ 2Hr Calcium 7.8 L D Phosphorus Magnesium Total Bilirubin AST ALT Alkaline Phosphatase Troponin I High Sens B-Natriuretic Peptide Total Protein Albumin TSH Free T4 Urine Color Urine Appearance Urine pH Ur Specific [place] Urine Protein Urine Glucose (UA) Urine Ketones Urine Blood Urine Nitrite Ur Leukocyte Esterase Urine RBC Urine WBC Urine WBC Clumps Ur Squamous Epith Cells Urine Bacteria Hyaline Casts Gastric Occult Blood Influenza Type A (PCR) Influenza Type B (PCR) RSV RNA Qual (PCR) SARS-CoV-2 RNA (RT-PCR) Blood Type Antibody Screen 11/26/24 11/26/24 11/26/24 20:28 20:32 20:32 WBC RBC Hgb Hct MCV MCH MCHC RDW Plt Count MPV Immature Gran % (Auto) Neut % (Auto) Lymph % (Auto) [place] % (Auto) Eos % (Auto) Baso % (Auto) Lymph # (Auto) [place] # (Auto) Eos # (Auto) Baso # (Auto) Abs Immat Gran (auto) Absolute Neuts (auto) Absolute Nucleated RBC Nucleated RBC % (auto) VBG pH VBG pCO2 VBG pO2 VBG HCO3 VBG O2 Saturation VBG Base Excess Sodium 140 Potassium 4.7 Chloride 107 Carbon Dioxide 17 L Anion Gap 21 H BUN 69 H Creatinine 5.02 H* Estim Creat Clear Calc 12.3 Estimated GFR 9 POC Glucose Random Glucose 253 H D Lactic Acid Lactic Acid F/U @ 2Hr 3.1 H* Calcium 7.8 L Phosphorus Magnesium Total Bilirubin AST ALT Alkaline Phosphatase Troponin I High Sens 880.8 H* B-Natriuretic Peptide 538 H Total Protein Albumin TSH Free T4 Urine Color Cancelled Yellow Urine Appearance Cancelled Urine pH Ur Specific [place] Urine Protein Urine Glucose (UA) Urine Ketones Urine Blood Urine Nitrite Ur Leukocyte Esterase Urine RBC Urine WBC Urine WBC Clumps Ur Squamous Epith Cells Urine Bacteria Hyaline Casts Gastric Occult Blood Influenza Type A (PCR) Influenza Type B (PCR) RSV RNA Qual (PCR) SARS-CoV-2 RNA (RT-PCR) Blood Type Antibody Screen 11/26/24 11/26/24 11/26/24 20:32 20:32 20:32 WBC RBC Hgb Hct MCV MCH MCHC RDW Plt Count MPV Immature Gran % (Auto) Neut % (Auto) Lymph % (Auto) [place] % (Auto) Eos % (Auto) Baso % (Auto) Lymph # (Auto) [place] # (Auto) Eos # (Auto) Baso # (Auto) Abs Immat Gran (auto) Absolute Neuts (auto) Absolute Nucleated RBC Nucleated RBC % (auto) VBG pH VBG pCO2 VBG pO2 VBG HCO3 VBG O2 Saturation VBG Base Excess Sodium Potassium Chloride Carbon Dioxide Anion Gap BUN Creatinine Estim Creat Clear Calc Estimated GFR POC Glucose Random Glucose Lactic Acid Lactic Acid F/U @ 2Hr Calcium Phosphorus Magnesium Total Bilirubin AST ALT Alkaline Phosphatase Troponin I High Sens B-Natriuretic Peptide Total Protein Albumin TSH Free T4 Urine Color Urine Appearance Turbid Urine pH Cancelled 6.5 Ur Specific [place] Cancelled 1.020 Urine Protein Cancelled Urine Glucose (UA) Urine Ketones Urine Blood Urine Nitrite Ur Leukocyte Esterase Urine RBC Urine WBC Urine WBC Clumps Ur Squamous Epith Cells Urine Bacteria Hyaline Casts Gastric Occult Blood Influenza Type A (PCR) Influenza Type B (PCR) RSV RNA Qual (PCR) SARS-CoV-2 RNA (RT-PCR) Blood Type Antibody Screen 11/26/24 11/26/24 11/26/24 20:32 20:32 20:32 WBC RBC Hgb Hct MCV MCH MCHC RDW Plt Count MPV Immature Gran % (Auto) Neut % (Auto) Lymph % (Auto) [place] % (Auto) Eos % (Auto) Baso % (Auto) Lymph # (Auto) [place] # (Auto) Eos # (Auto) Baso # (Auto) Abs Immat Gran (auto) Absolute Neuts (auto) Absolute Nucleated RBC Nucleated RBC % (auto) VBG pH VBG pCO2 VBG pO2 VBG HCO3 VBG O2 Saturation VBG Base Excess Sodium Potassium Chloride Carbon Dioxide Anion Gap BUN Creatinine Estim Creat Clear Calc Estimated GFR POC Glucose Random Glucose Lactic Acid Lactic Acid F/U @ 2Hr Calcium Phosphorus Magnesium Total Bilirubin AST ALT Alkaline Phosphatase Troponin I High Sens B-Natriuretic Peptide Total Protein Albumin TSH Free T4 Urine Color Urine Appearance Urine pH Ur Specific [place] Urine Protein 300 (3+) H Urine Glucose (UA) Cancelled 250 H Urine Ketones Cancelled Negative Urine Blood Cancelled Urine Nitrite Ur Leukocyte Esterase Urine RBC Urine WBC Urine WBC Clumps Ur Squamous Epith Cells Urine Bacteria Hyaline Casts Gastric Occult Blood Influenza Type A (PCR) Influenza Type B (PCR) RSV RNA Qual (PCR) SARS-CoV-2 RNA (RT-PCR) Blood Type Antibody Screen 11/26/24 11/26/24 11/26/24 20:32 20:32 20:32 WBC RBC Hgb Hct MCV MCH MCHC RDW Plt Count MPV Immature Gran % (Auto) Neut % (Auto) Lymph % (Auto) [place] % (Auto) Eos % (Auto) Baso % (Auto) Lymph # (Auto) [place] # (Auto) Eos # (Auto) Baso # (Auto) Abs Immat Gran (auto) Absolute Neuts (auto) Absolute Nucleated RBC Nucleated RBC % (auto) VBG pH VBG pCO2 VBG pO2 VBG HCO3 VBG O2 Saturation VBG Base Excess Sodium Potassium Chloride Carbon Dioxide Anion Gap BUN Creatinine Estim Creat Clear Calc Estimated GFR POC Glucose Random Glucose Lactic Acid Lactic Acid F/U @ 2Hr Calcium Phosphorus Magnesium Total Bilirubin AST ALT Alkaline Phosphatase Troponin I High Sens B-Natriuretic Peptide Total Protein Albumin TSH Free T4 Urine Color Urine Appearance Urine pH Ur Specific [place] Urine Protein Urine Glucose (UA) Urine Ketones Urine Blood Large (3+) H Urine Nitrite Cancelled Positive H Ur Leukocyte Esterase Cancelled Large (3+) H Urine RBC 11-20 H Urine WBC >50 H Urine WBC Clumps Present Ur Squamous Epith Cells 0-2 Urine Bacteria 3+ Hyaline Casts 0-2 Gastric Occult Blood Influenza Type A (PCR) Influenza Type B (PCR) RSV RNA Qual (PCR) SARS-CoV-2 RNA (RT-PCR) Blood Type Antibody Screen 11/26/24 11/26/24 11/26/24 22:18 22:26 22:26 WBC RBC Hgb Hct MCV MCH MCHC RDW Plt Count MPV Immature Gran % (Auto) Neut % (Auto) Lymph % (Auto) [place] % (Auto) Eos % (Auto) Baso % (Auto) Lymph # (Auto) [place] # (Auto) Eos # (Auto) Baso # (Auto) Abs Immat Gran (auto) Absolute Neuts (auto) Absolute Nucleated RBC Nucleated RBC % (auto) VBG pH VBG pCO2 VBG pO2 VBG HCO3 VBG O2 Saturation VBG Base Excess Sodium Cancelled Potassium Cancelled 4.6 Chloride Cancelled Carbon Dioxide Cancelled Anion Gap Cancelled BUN Cancelled Creatinine Cancelled Estim Creat Clear Calc Cancelled Estimated GFR Cancelled POC Glucose Random Glucose Cancelled Lactic Acid Lactic Acid F/U @ 2Hr Calcium Cancelled Phosphorus 7.7 H Magnesium Total Bilirubin AST ALT Alkaline Phosphatase Troponin I High Sens B-Natriuretic Peptide Total Protein Albumin TSH Free T4 Urine Color Urine Appearance Urine pH Ur Specific [place] Urine Protein Urine Glucose (UA) Urine Ketones Urine Blood Urine Nitrite Ur Leukocyte Esterase Urine RBC Urine WBC Urine WBC Clumps Ur Squamous Epith Cells Urine Bacteria Hyaline Casts Gastric Occult Blood POSITIVE H Influenza Type A (PCR) Influenza Type B (PCR) RSV RNA Qual (PCR) SARS-CoV-2 RNA (RT-PCR) Blood Type Antibody Screen 11/27/24 11/27/24 11/27/24 00:14 05:16 05:22 WBC 16.5 H RBC 2.94 L Hgb 8.6 L Hct 28.6 L MCV 97.3 MCH 29.3 MCHC 30.1 L RDW 17.7 H Plt Count 408 H MPV 10.1 Immature Gran % (Auto) 0.5 H Neut % (Auto) 79.7 H Lymph % (Auto) 11.5 L [place] % (Auto) 6.6 Eos % (Auto) 1.2 Baso % (Auto) 0.5 Lymph # (Auto) 1.9 [place] # (Auto) 1.1 Eos # (Auto) 0.2 Baso # (Auto) 0.1 Abs Immat Gran (auto) 0.09 H Absolute Neuts (auto) 13.1 H Absolute Nucleated RBC 0.050 H Nucleated RBC % (auto) 0.3 H VBG pH 7.31 L VBG pCO2 44 VBG pO2 52 VBG HCO3 23 VBG O2 Saturation 74.0 VBG Base Excess -3.0 Sodium 141 Potassium 4.5 Chloride 105 Carbon Dioxide 19 L Anion Gap 22 H BUN 70 H Creatinine 5.10 H* Estim Creat Clear Calc 11.9 Estimated GFR 8 POC Glucose 161 H Random Glucose 241 H Lactic Acid Lactic Acid F/U @ 2Hr Calcium 8.2 L Phosphorus Magnesium 2.3 Total Bilirubin 0.2 AST 540 H ALT 377 H Alkaline Phosphatase 168 H Troponin I High Sens 2510.3 H* D B-Natriuretic Peptide Total Protein 7.1 Albumin 3.2 L TSH 4.41 H Free T4 0.82 Urine Color Urine Appearance Urine pH Ur Specific [place] Urine Protein Urine Glucose (UA) Urine Ketones Urine Blood Urine Nitrite Ur Leukocyte Esterase Urine RBC Urine WBC Urine WBC Clumps Ur Squamous Epith Cells Urine Bacteria Hyaline Casts Gastric Occult Blood Influenza Type A (PCR) Influenza Type B (PCR) RSV RNA Qual (PCR) SARS-CoV-2 RNA (RT-PCR) Blood Type Antibody Screen Imaging Radiologist's impression: Impressions Chest X-Ray 11/26/24 15:57 IMPRESSION: 1. Limited by habitus and apical lordotic technique. 2. Similar interstitial changes in the lower lungs. Cardiomegaly. 3. Allowing for technique, no active superimposed disease. Electronically signed by: Dereck Cuadra MD 11/26/2024 04:26 PM [facility] Assessment and Plan (1) Symptomatic bradycardia: Status: Acute (2) (HFpEF) heart failure with preserved ejection fraction: Qualifiers: Heart failure chronicity: unspecified Qualified Code(s): I50.30 - Unspecified diastolic (congestive) heart failure Status: Acute Plan 69 year female with background history of heart failure with preserved ejection fraction, chronic kidney disease with acute kidney injury currently and mild aortic valve stenosis. She is currently in the intensive care unit on pressors for symptomatic bradycardia. Mostly her rhythm was junctional overnight. She is still is in junctional rhythm with some premature atrial complexes. With pressors her heart rate is okay currently. I have discussed the case with electrophysiology Dr. Vargas and we have decided to proceed with a permanent pacemaker. Echo was done and I will review it in detail but LV/RV function appears normal. Keep holding Apixaban for now. Hopefully as she gets the pacemaker we can wean her off the pressors. Mildly elevated troponin-Type 2 from hypoperfusion and elevated creatinine. We will follow along with you. Procedures Date of Service Date of Service: 11/27/24
--- NOTE | 2024-11-27 10:32 | MHC.CLN ---
RE; CONSULT PT IS INTUBATED AND SEDATED PT IS CURRENTLY NPO IF TF NEEDED; RECOMMEND NEPRO AT MAX GOAL RATE 25ML/HR WITH 240ML FREE WATER FLUSH Q 8 HRS TO PROVIDE 1080KCALS (1254KCALS WITH SEDATION; 25KCALS/KG BASED ON IBW), 49G PROTEIN, 1156ML TOTAL FREE WATER FROM FORMULA AND FLUSHES (23ML/KG BASED ON IBW) MONITOR TOLERANCE AND LYTES SEE ALSO FULL CLINICAL NUTRITION ASSESSMENT
--- NOTE | 2024-11-27 11:04 | PHA.MEDREC ---
Addendum entered by Keyshawn Estevez RPh 11/27/24 11:39: Reviewed by [facility] Original Note: Pharmacy Consult ? Medication Reconciliation Pharmacy has completed the medication reconciliation. Spoke to patient daughter to confirm med list. Daughter was able to confirm all patient medication. Daughter states patient was just discharged from [facility] [place] and there are no changes. Utilized discharge packed and what patient confirmed to confirm med list.
[2024-11-27] MEDS: propofoL 1,000 MG/100 ML VIAL 6.59 MG IVCONT (11:19)
[2024-11-27 11:40] LABS: Glucose, Whole Blood 199 mg/dL (60-115)
[2024-11-27] MEDS: fentaNYL citrate/NS 1,000 MCG/100 ML PLAST..BAG 15 MCG IVCONT (12:13)
--- NOTE | 2024-11-27 12:49 | HO.ANESPROP2 ---
HPI - Anesthesia Eval Consult details Narrative: 69 yr old female patient in ICU in cardiogenic shock, acute respiratory failure, UTI Symptomatic bradycardia. On norepinephrine, dopamine and epinephrine infusions +/- transcutaneous pacing. Intubated and ventilated. For ICD placement PMFSH Active Problems Active Problems: All Active Problems Symptomatic bradycardia (Acute) Cardiogenic shock (Acute) Respiratory failure (Acute) Acute UTI (Acute) CKD (chronic kidney disease) stage 4, GFR 15-29 ml/min (Acute) (HFpEF) heart failure with preserved ejection fraction (Acute) Type 2 diabetes mellitus (Acute) Acute exacerbation of CHF (congestive heart failure) (Acute) Chronic anemia (Acute) Pulmonary edema (Acute) CKD (chronic kidney disease) (Acute) Diabetes (Acute) Paroxysmal atrial flutter (Acute) Hypoglycemia (Acute) Unsteady gait (Acute) Hospital discharge follow-up (Acute) Dizziness (Acute) Monitoring for anticoagulant use (Acute) New onset atrial flutter (Acute) Sepsis (Acute) Acute on chronic hypoxic respiratory failure (Acute) Acute worsening of stage 3 chronic kidney disease (Acute) Iron 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 (chronic) (Acute) Elevated LFTs (Acute) Advance directive discussed with patient (Acute) Hyperkalemia (Acute) Colon cancer screening (Acute) Screening mammogram for breast cancer (Acute) Electrolyte abnormality (Acute) E-coli UTI (Acute) Leukocytosis (Acute) Left flank pain (Acute) Hypertensive encephalopathy (Acute) Normal physical exam (Acute) Hyperglycemia due to diabetes mellitus (Acute) Cough due to MARGAUX inhibitor (Acute) UTI (urinary tract infection) (Acute) Nausea and vomiting (Acute) Cough (Acute) Preoperative clearance (Acute) Aortic stenosis (Acute) Supplemental oxygen dependent (Acute) Contusion of left hip (Acute) Urine findings abnormal (Acute) Depression (Acute) Interstitial lung disease (Acute) Respiratory failure with hypoxia (Acute) Cough (Acute) Anemia (Acute) Hypertension, essential (Acute) Exercise hypoxemia (Acute) Morbid obesity (Acute) AMY on CPAP (Acute) Chronic renal failure (Acute) Diabetes type 2, uncontrolled (Acute) HTN (hypertension) (Acute) Nocturnal hypoxemia (Acute) Pneumonia (Acute) Past Medical History Medical History Heartburn On anticoagulant therapy Interstitial lung disease Respiratory failure with hypoxia Cough Exercise hypoxemia MRSA carrier CAP (community acquired pneumonia) Morbid (severe) obesity due to excess calories Heme positive stool Atrial flutter Elevated serum creatinine AMY on CPAP Chronic renal failure Secondary aldosteronism Acute renal failure Nocturnal hypoxemia Morbid obesity Diabetes type 2, controlled Oxygen dependent HTN (hypertension) Morbid obesity due to excess calories AMY (obstructive sleep apnea) Pneumonia Obesity Elevated creatine kinase Anemia Congestive heart failure High cholesterol Diabetes type 2, uncontrolled Hypertension, essential Family History Family History Father Stroke Mother Stroke Hypertension Diabetes Maternal Grandmother Diabetes Hypertension Stroke Sister Diabetes Breast cancer Son Bipolar 1 disorder Overweight Other Mental health problem Substance abuse Family history of problems with anesthesia: No Surgical History Surgical History H/O colonoscopy History of surgery History of D&C History of Problems with Anesthesia: No Social History Social History Household Members: Unknown / Unable to assess Housing: Unknown / Unable to assess Are you a primary career technical education teacher to a significant other at home: No Do you presently have visiting nurse or other home services: No Unable to assess alcohol history related to: Unable to respond Alcohol intake: current Alcohol intake frequency: does not drink Comment: pt was medicated Patient Tobacco Use Status: Former Tobacco user Smoked in Last 30 Days: No e-Cigarette/Vaping Use: Never Used Second Hand Smoke Exposure: No Use of substances other than those prescribed or required for medical reasons: Unable to respond Currently Displaying Signs/Symptoms of Drug Intoxication Withdrawal: No Advance Directives: Yes Advance Directives on File: Yes Advance Directives Date on File: 06/09/21 Do you have a plan to hurt others: No Plan Recently lost weight without trying: Unsure Nutrition Risks: No Nutritional Risk Patient : No service: No Current occupational status: retired Cognitive needs: No Hearing needs: No Vision needs: Yes Meds Allergies Allergy/AdvReac Type Severity Reaction Status Date / Time penicillin V Allergy Severe joint Verified 11/26/24 15:37 swelling and rash amlodipine [From Norvas] AdvReac Intermediate edema Verified 11/26/24 15:37 Active Medications: Current Medications Chlorhexidine Gluconate (Chlorhexidine Gluc Oral Rinse 15 Ml Mouthwash) 15 ml BUCCAL TID LORRIE Last Admin: 11/27/24 08:27 Dose: 15 ml Dextrose (Dextrose 50 % 25 Gm/50 Ml Syringe) 25 gm IVPUSH Q15M PRN; Protocol PRN Reason: per Hypoglycemia Standing Ord. Glucose (Glucose Gel 15 Gm Gel..Gram.) 15 gm PO Q15M PRN; Protocol PRN Reason: per Hypoglycemia Standing Ord. Heparin Sodium (Porcine) (Heparin Sodium,Porcine 5,000 Unit/Ml Vial) 5,000 unit SUBCUT Q8H LORRIE Last Admin: 11/27/24 08:27 Dose: 5,000 unit Fentanyl (Sublimaze/Ns) 1,000 mcg in 100 mls @ 0 mls/hr IVCONT .Q0M LORRIE; Protocol Last Admin: 11/27/24 12:13 Dose: 150 mcg/hr, 15 mls/hr Propofol (Diprivan) 1,000 mg in 100 mls @ 0 mls/hr IVCONT .Q0M LORRIE; Protocol Last Admin: 11/27/24 11:19 Dose: 10 mcg/kg/min, 6.59 mls/hr Dopamine HCl/Dextrose (Dopamine Hcl/D5w) 400 mg in 250 mls @ 0 mls/hr IVCONT .Q0M LORRIE; Protocol Last Admin: 11/27/24 12:33 Dose: 5 mcg/kg/min, 20.58 mls/hr Piperacillin Sod/Tazobactam (Sod 2.25 gm/ Sodium Chloride) 50 mls @ 100 mls/hr IV Q8H LORRIE Last Infusion: 11/27/24 07:21 Dose: Infused Norepinephrine Bitartrate (Levophed) 8 mg in 250 mls @ 0 mls/hr IVCONT .Q0M LORRIE; Protocol Last Titration: 11/27/24 09:45 Dose: 0 mcg/kg/min, 0 mls/hr Epinephrine 5 mg/ Sodium (Chloride) 255 mls @ 0 mls/hr IVCONT .Q0M LORRIE; Protocol Last Titration: 11/27/24 12:26 Dose: 0.4 mcg/kg/min, 137.46 mls/hr Vancomycin HCl 500 mg/ Sodium (Chloride) 110 mls @ 110 mls/hr IV ONCE ONE Stop: 11/27/24 11:14 Insulin Human Lispro (Insulin Lispro 100 Unit/Ml 3 Ml Vial) 0 unit SUBCUT Q6H LORRIE; Protocol Last Admin: 11/27/24 11:39 Dose: 2 unit Naloxone HCl (Naloxone Hcl 0.4 Mg/Ml Vial) 0.2 mg IVPUSH Q2M PRN PRN Reason: Excessive sedation or RR < 8 Pantoprazole Sodium (Pantoprazole Sodium 40 Mg/10 Ml Vial) 40 mg IVPUSH DAILY@0630 PENDING SALE TO [facility] Last Admin: 11/27/24 06:06 Dose: 40 mg Pharmacy Consult (Consult Rx Vancomycin Dosing) 1 each MISCELLANE DAILY PRN PRN Reason: Consult order Home Medications ?Medication ?Instructions ?Recorded ?Confirmed ?Last Taken ?Type ascorbic acid (vitamin C) 500 mg 500 mg PO DAILY 09/22/20 11/27/24 10/30/24 History tablet fexofenadine 180 mg tablet 180 mg PO DAILY 09/22/20 11/27/24 10/30/24 History multivitamin 1 tab PO DAILY 09/12/22 11/27/24 10/30/24 History epoetin waqar 2,000 unit/mL 3,000 unit subcut Q2W 08/17/24 11/27/24 1 Month Ago History injection solution (Procrit) ~09/29/24 carvedilol 25 mg tablet 25 mg PO BID 10/30/24 11/27/24 10/30/24 History cholecalciferol (vitamin D3) 1,250 1,250 mcg PO PISANO 10/30/24 11/27/24 10/25/24 History mcg (50,000 unit) capsule insulin glargine 100 unit/mL (3 36 unit subcut BEDTIME 11/27/24 11/27/24 Unknown History mL) subcutaneous pen (Lantus Solostar U-100 Insulin) insulin glargine 100 unit/mL (3 38 unit subcut DAILY 11/27/24 11/27/24 Unknown History mL) subcutaneous pen (Lantus Solostar U-100 Insulin) tirzepatide 5 mg/0.5 mL 5 mg subcut MO 11/27/24 11/27/24 11/23/24 History subcutaneous pen injector (Moelizabeth) Exam Height,Weight and Vital Signs: Height 5 ft 2 in Weight 112.3 kg Last Vital Signs Temp 100.4 F 11/27/24 12:00 Pulse 97 11/27/24 12:33 Resp 20 11/27/24 12:00 BP 150/57 H 11/27/24 12:33 Pulse Ox 96 11/27/24 12:00 O2 Del Method Mechanical Ventilation 11/27/24 12:00 O2 Flow Rate 4 11/26/24 18:28 FiO2 80 11/27/24 12:00 Oxygen Flow Rate 4 11/26/24 15:36 Pertinent Lab Results Pertinent Lab Results: Laboratory Tests 11/26/24 11/26/24 11/26/24 15:11 15:54 16:12 WBC 13.6 H RBC 2.60 L Hgb 7.8 L Hct 25.8 L MCV 99.2 H MCH 30.0 MCHC 30.2 L RDW 17.7 H Plt Count 345 MPV 10.1 Immature Gran % (Auto) 0.7 H Neut % (Auto) 81.2 H Lymph % (Auto) 9.9 L [place] % (Auto) 6.5 Eos % (Auto) 1.2 Baso % (Auto) 0.5 Lymph # (Auto) 1.4 [place] # (Auto) 0.9 Eos # (Auto) 0.2 Baso # (Auto) 0.1 Abs Immat Gran (auto) 0.10 H Absolute Neuts (auto) 11.0 H Absolute Nucleated RBC 0.080 H Nucleated RBC % (auto) 0.6 H VBG pH VBG pCO2 VBG pO2 VBG HCO3 VBG O2 Saturation VBG Base Excess Sodium Potassium Chloride Carbon Dioxide Anion Gap BUN Creatinine Estim Creat Clear Calc Estimated GFR POC Glucose 178 H Random Glucose Lactic Acid 3.4 H* Lactic Acid F/U @ 2Hr Calcium Phosphorus Magnesium 2.3 Total Bilirubin AST ALT Alkaline Phosphatase Troponin I High Sens 727.3 H* D B-Natriuretic Peptide 649 H Total Protein Albumin TSH Free T4 Urine Color Urine Appearance Urine pH Ur Specific [place] Urine Protein Urine Glucose (UA) Urine Ketones Urine Blood Urine Nitrite Ur Leukocyte Esterase Urine RBC Urine WBC Urine WBC Clumps Ur Squamous Epith Cells Urine Bacteria Hyaline Casts Gastric Occult Blood Influenza Type A (PCR) NEGATIVE Influenza Type B (PCR) NEGATIVE RSV RNA Qual (PCR) NEGATIVE SARS-CoV-2 RNA (RT-PCR) NEGATIVE Blood Type O Positive Antibody Screen NEGATIVE 11/26/24 11/26/24 11/26/24 17:07 17:15 19:01 WBC RBC Hgb Hct MCV MCH MCHC RDW Plt Count MPV Immature Gran % (Auto) Neut % (Auto) Lymph % (Auto) [place] % (Auto) Eos % (Auto) Baso % (Auto) Lymph # (Auto) [place] # (Auto) Eos # (Auto) Baso # (Auto) Abs Immat Gran (auto) Absolute Neuts (auto) Absolute Nucleated RBC Nucleated RBC % (auto) VBG pH 7.35 VBG pCO2 46 VBG pO2 30 VBG HCO3 26 VBG O2 Saturation 35.0 VBG Base Excess 0.8 Sodium 139 Potassium 5.5 H Chloride 107 Carbon Dioxide 20 L Anion Gap 18 BUN 68 H Creatinine 5.05 H* Estim Creat Clear Calc 12.1 Estimated GFR 8 POC Glucose 156 H Random Glucose 209 H Lactic Acid Lactic Acid F/U @ 2Hr Calcium 7.8 L D Phosphorus Magnesium Total Bilirubin AST ALT Alkaline Phosphatase Troponin I High Sens B-Natriuretic Peptide Total Protein Albumin TSH Free T4 Urine Color Urine Appearance Urine pH Ur Specific [place] Urine Protein Urine Glucose (UA) Urine Ketones Urine Blood Urine Nitrite Ur Leukocyte Esterase Urine RBC Urine WBC Urine WBC Clumps Ur Squamous Epith Cells Urine Bacteria Hyaline Casts Gastric Occult Blood Influenza Type A (PCR) Influenza Type B (PCR) RSV RNA Qual (PCR) SARS-CoV-2 RNA (RT-PCR) Blood Type Antibody Screen 11/26/24 11/26/24 11/26/24 20:28 20:32 20:32 WBC RBC Hgb Hct MCV MCH MCHC RDW Plt Count MPV Immature Gran % (Auto) Neut % (Auto) Lymph % (Auto) [place] % (Auto) Eos % (Auto) Baso % (Auto) Lymph # (Auto) [place] # (Auto) Eos # (Auto) Baso # (Auto) Abs Immat Gran (auto) Absolute Neuts (auto) Absolute Nucleated RBC Nucleated RBC % (auto) VBG pH VBG pCO2 VBG pO2 VBG HCO3 VBG O2 Saturation VBG Base Excess Sodium 140 Potassium 4.7 Chloride 107 Carbon Dioxide 17 L Anion Gap 21 H BUN 69 H Creatinine 5.02 H* Estim Creat Clear Calc 12.3 Estimated GFR 9 POC Glucose Random Glucose 253 H D Lactic Acid Lactic Acid F/U @ 2Hr 3.1 H* Calcium 7.8 L Phosphorus Magnesium Total Bilirubin AST ALT Alkaline Phosphatase Troponin I High Sens 880.8 H* B-Natriuretic Peptide 538 H Total Protein Albumin TSH Free T4 Urine Color Cancelled Yellow Urine Appearance Cancelled Urine pH Ur Specific [place] Urine Protein Urine Glucose (UA) Urine Ketones Urine Blood Urine Nitrite Ur Leukocyte Esterase Urine RBC Urine WBC Urine WBC Clumps Ur Squamous Epith Cells Urine Bacteria Hyaline Casts Gastric Occult Blood Influenza Type A (PCR) Influenza Type B (PCR) RSV RNA Qual (PCR) SARS-CoV-2 RNA (RT-PCR) Blood Type Antibody Screen 11/26/24 11/26/24 11/26/24 20:32 20:32 20:32 WBC RBC Hgb Hct MCV MCH MCHC RDW Plt Count MPV Immature Gran % (Auto) Neut % (Auto) Lymph % (Auto) [place] % (Auto) Eos % (Auto) Baso % (Auto) Lymph # (Auto) [place] # (Auto) Eos # (Auto) Baso # (Auto) Abs Immat Gran (auto) Absolute Neuts (auto) Absolute Nucleated RBC Nucleated RBC % (auto) VBG pH VBG pCO2 VBG pO2 VBG HCO3 VBG O2 Saturation VBG Base Excess Sodium Potassium Chloride Carbon Dioxide Anion Gap BUN Creatinine Estim Creat Clear Calc Estimated GFR POC Glucose Random Glucose Lactic Acid Lactic Acid F/U @ 2Hr Calcium Phosphorus Magnesium Total Bilirubin AST ALT Alkaline Phosphatase Troponin I High Sens B-Natriuretic Peptide Total Protein Albumin TSH Free T4 Urine Color Urine Appearance Turbid Urine pH Cancelled 6.5 Ur Specific [place] Cancelled 1.020 Urine Protein Cancelled Urine Glucose (UA) Urine Ketones Urine Blood Urine Nitrite Ur Leukocyte Esterase Urine RBC Urine WBC Urine WBC Clumps Ur Squamous Epith Cells Urine Bacteria Hyaline Casts Gastric Occult Blood Influenza Type A (PCR) Influenza Type B (PCR) RSV RNA Qual (PCR) SARS-CoV-2 RNA (RT-PCR) Blood Type Antibody Screen 11/26/24 11/26/24 11/26/24 20:32 20:32 20:32 WBC RBC Hgb Hct MCV MCH MCHC RDW Plt Count MPV Immature Gran % (Auto) Neut % (Auto) Lymph % (Auto) [place] % (Auto) Eos % (Auto) Baso % (Auto) Lymph # (Auto) [place] # (Auto) Eos # (Auto) Baso # (Auto) Abs Immat Gran (auto) Absolute Neuts (auto) Absolute Nucleated RBC Nucleated RBC % (auto) VBG pH VBG pCO2 VBG pO2 VBG HCO3 VBG O2 Saturation VBG Base Excess Sodium Potassium Chloride Carbon Dioxide Anion Gap BUN Creatinine Estim Creat Clear Calc Estimated GFR POC Glucose Random Glucose Lactic Acid Lactic Acid F/U @ 2Hr Calcium Phosphorus Magnesium Total Bilirubin AST ALT Alkaline Phosphatase Troponin I High Sens B-Natriuretic Peptide Total Protein Albumin TSH Free T4 Urine Color Urine Appearance Urine pH Ur Specific [place] Urine Protein 300 (3+) H Urine Glucose (UA) Cancelled 250 H Urine Ketones Cancelled Negative Urine Blood Cancelled Urine Nitrite Ur Leukocyte Esterase Urine RBC Urine WBC Urine WBC Clumps Ur Squamous Epith Cells Urine Bacteria Hyaline Casts Gastric Occult Blood Influenza Type A (PCR) Influenza Type B (PCR) RSV RNA Qual (PCR) SARS-CoV-2 RNA (RT-PCR) Blood Type Antibody Screen 11/26/24 11/26/24 11/26/24 20:32 20:32 20:32 WBC RBC Hgb Hct MCV MCH MCHC RDW Plt Count MPV Immature Gran % (Auto) Neut % (Auto) Lymph % (Auto) [place] % (Auto) Eos % (Auto) Baso % (Auto) Lymph # (Auto) [place] # (Auto) Eos # (Auto) Baso # (Auto) Abs Immat Gran (auto) Absolute Neuts (auto) Absolute Nucleated RBC Nucleated RBC % (auto) VBG pH VBG pCO2 VBG pO2 VBG HCO3 VBG O2 Saturation VBG Base Excess Sodium Potassium Chloride Carbon Dioxide Anion Gap BUN Creatinine Estim Creat Clear Calc Estimated GFR POC Glucose Random Glucose Lactic Acid Lactic Acid F/U @ 2Hr Calcium Phosphorus Magnesium Total Bilirubin AST ALT Alkaline Phosphatase Troponin I High Sens B-Natriuretic Peptide Total Protein Albumin TSH Free T4 Urine Color Urine Appearance Urine pH Ur Specific [place] Urine Protein Urine Glucose (UA) Urine Ketones Urine Blood Large (3+) H Urine Nitrite Cancelled Positive H Ur Leukocyte Esterase Cancelled Large (3+) H Urine RBC 11-20 H Urine WBC >50 H Urine WBC Clumps Present Ur Squamous Epith Cells 0-2 Urine Bacteria 3+ Hyaline Casts 0-2 Gastric Occult Blood Influenza Type A (PCR) Influenza Type B (PCR) RSV RNA Qual (PCR) SARS-CoV-2 RNA (RT-PCR) Blood Type Antibody Screen 11/26/24 11/26/24 11/26/24 22:18 22:26 22:26 WBC RBC Hgb Hct MCV MCH MCHC RDW Plt Count MPV Immature Gran % (Auto) Neut % (Auto) Lymph % (Auto) [place] % (Auto) Eos % (Auto) Baso % (Auto) Lymph # (Auto) [place] # (Auto) Eos # (Auto) Baso # (Auto) Abs Immat Gran (auto) Absolute Neuts (auto) Absolute Nucleated RBC Nucleated RBC % (auto) VBG pH VBG pCO2 VBG pO2 VBG HCO3 VBG O2 Saturation VBG Base Excess Sodium Cancelled Potassium Cancelled 4.6 Chloride Cancelled Carbon Dioxide Cancelled Anion Gap Cancelled BUN Cancelled Creatinine Cancelled Estim Creat Clear Calc Cancelled Estimated GFR Cancelled POC Glucose Random Glucose Cancelled Lactic Acid Lactic Acid F/U @ 2Hr Calcium Cancelled Phosphorus 7.7 H Magnesium Total Bilirubin AST ALT Alkaline Phosphatase Troponin I High Sens B-Natriuretic Peptide Total Protein Albumin TSH Free T4 Urine Color Urine Appearance Urine pH Ur Specific [place] Urine Protein Urine Glucose (UA) Urine Ketones Urine Blood Urine Nitrite Ur Leukocyte Esterase Urine RBC Urine WBC Urine WBC Clumps Ur Squamous Epith Cells Urine Bacteria Hyaline Casts Gastric Occult Blood POSITIVE H Influenza Type A (PCR) Influenza Type B (PCR) RSV RNA Qual (PCR) SARS-CoV-2 RNA (RT-PCR) Blood Type Antibody Screen 11/27/24 11/27/24 11/27/24 00:14 05:16 05:22 WBC 16.5 H RBC 2.94 L Hgb 8.6 L Hct 28.6 L MCV 97.3 MCH 29.3 MCHC 30.1 L RDW 17.7 H Plt Count 408 H MPV 10.1 Immature Gran % (Auto) 0.5 H Neut % (Auto) 79.7 H Lymph % (Auto) 11.5 L [place] % (Auto) 6.6 Eos % (Auto) 1.2 Baso % (Auto) 0.5 Lymph # (Auto) 1.9 [place] # (Auto) 1.1 Eos # (Auto) 0.2 Baso # (Auto) 0.1 Abs Immat Gran (auto) 0.09 H Absolute Neuts (auto) 13.1 H Absolute Nucleated RBC 0.050 H Nucleated RBC % (auto) 0.3 H VBG pH 7.31 L VBG pCO2 44 VBG pO2 52 VBG HCO3 23 VBG O2 Saturation 74.0 VBG Base Excess -3.0 Sodium 141 Potassium 4.5 Chloride 105 Carbon Dioxide 19 L Anion Gap 22 H BUN 70 H Creatinine 5.10 H* Estim Creat Clear Calc 11.9 Estimated GFR 8 POC Glucose 161 H Random Glucose 241 H Lactic Acid Lactic Acid F/U @ 2Hr Calcium 8.2 L Phosphorus Magnesium 2.3 Total Bilirubin 0.2 AST 540 H ALT 377 H Alkaline Phosphatase 168 H Troponin I High Sens 2510.3 H* D B-Natriuretic Peptide Total Protein 7.1 Albumin 3.2 L TSH 4.41 H Free T4 0.82 Urine Color Urine Appearance Urine pH Ur Specific [place] Urine Protein Urine Glucose (UA) Urine Ketones Urine Blood Urine Nitrite Ur Leukocyte Esterase Urine RBC Urine WBC Urine WBC Clumps Ur Squamous Epith Cells Urine Bacteria Hyaline Casts Gastric Occult Blood Influenza Type A (PCR) Influenza Type B (PCR) RSV RNA Qual (PCR) SARS-CoV-2 RNA (RT-PCR) Blood Type Antibody Screen 11/27/24 11:36 WBC RBC Hgb Hct MCV MCH MCHC RDW Plt Count MPV Immature Gran % (Auto) Neut % (Auto) Lymph % (Auto) [place] % (Auto) Eos % (Auto) Baso % (Auto) Lymph # (Auto) [place] # (Auto) Eos # (Auto) Baso # (Auto) Abs Immat Gran (auto) Absolute Neuts (auto) Absolute Nucleated RBC Nucleated RBC % (auto) VBG pH VBG pCO2 VBG pO2 VBG HCO3 VBG O2 Saturation VBG Base Excess Sodium Potassium Chloride Carbon Dioxide Anion Gap BUN Creatinine Estim Creat Clear Calc Estimated GFR POC Glucose 199 H Random Glucose Lactic Acid Lactic Acid F/U @ 2Hr Calcium Phosphorus Magnesium Total Bilirubin AST ALT Alkaline Phosphatase Troponin I High Sens B-Natriuretic Peptide Total Protein Albumin TSH Free T4 Urine Color Urine Appearance Urine pH Ur Specific [place] Urine Protein Urine Glucose (UA) Urine Ketones Urine Blood Urine Nitrite Ur Leukocyte Esterase Urine RBC Urine WBC Urine WBC Clumps Ur Squamous Epith Cells Urine Bacteria Hyaline Casts Gastric Occult Blood Influenza Type A (PCR) Influenza Type B (PCR) RSV RNA Qual (PCR) SARS-CoV-2 RNA (RT-PCR) Blood Type Antibody Screen Narrative Narrative: Patient in ICU. Sedated. Inbtubated. Ventilated. History obtained by reviewing records. Family at bedside. ETT #7.5 25cm @ lips OGT in-situ RIJ TLC Vent settings: AC/PC Fi02 100% RR20 PEEP 8 PS 15 Temp 100.6 Airway Other: Intubated Assessment and Plan Assessment Anesthesia Assessment: Anesthesia Plan Discussed (Plan discussed with patient's family/HCP) Final Anesthetic Review Family History of Problems with Anesthesia: No History of Problems with Anesthesia: No NPO: Yes ASA Class: V and Emergency Final Preanesthetic Review: Meds/Allgs Chart Reviewed, Consent Obtained/Reviewed and Anes Risks/Benef Reviewed Patient Risk: High Procedure Risk: High Assessment/Block/Sedation in SS: Assess/Block/Sedation-SS Anesthetic Plan Anesthetic Plan: GA (Patient already intubated) Disposition: Inp. Admit - ICU (Return to ICU post procedure)
--- NOTE | 2024-11-27 14:20 | MHC.CM.PN ---
Pt intubated in ICU and unable to participate in CM assessment. Information obtained from pt's HCP/dtr Ivone who states pt resides alone and does not have services. Pt has [employer] for home O2 and uses a cane or w/c when outside of the home. Dtr assists w/transportation. Discussed possible d/c needs for pt: Ivone would like to wait for pt's improvement before assisting w/d/c planning. She said her mother would be receptive to VNA but STR is not known. No referrals at this time. IMM in chart. HCP on file. CM to follow.
[2024-11-27 14:32] LABS: ABG Base Excess -9.1 mmol/L; ABG HCO3 17 mmol/L (22-26); ABG pCO2 36 mmHg (32-45); ABG pH 7.26 (7.35-7.45); ABG pO2 406 mmHg (83-108)
--- NOTE | 2024-11-27 16:16 | HO.HCP_ITS ---
Health Care Proxy Invocation Health Care Proxy Declaration: I, ____Bryson Webster , on the date cited below, have determined that, Amaris Hook , lacks the capacity to make or communicate, informed health care decision. This determination is made in accordance with accepted standards of medical judgment and pursuant to [place] c. 201[place], the [place] Health Care Proxy Law. The cause, nature, extent and probable duration of the patient's inapacity are described below: Cause: Cardiogenic shock with multiple cardiac arrests Nature: Organic Extent: Severe Probable Duration of Patient's Incapacity: Unclear
[2024-11-27] MEDS: Sodium Bicarbonate 8.4% 50 MEQ/50 ML SYRINGE IVPUSH (16:17)
--- NOTE | 2024-11-27 16:17 | PM.CCN ---
Critical Care Event Note Summary Date of Service: 11/27/24 Code activated: No Narrative: Patient returned to ICU from OR after attempted permanent pacemaker placement, abandoned secondary to multiple cardiac arrest in OR with successful resuscitation. Patient had transjugular temporary wire placed. After arrival to the intensive care unit patient with repeat cardiac arrest with CPR started immediately and successful resuscitation after 15 minutes of CPR. Overall poor prognosis discussed with patient's healthcare proxy and family who made decision to switch code status to DNR DNI. Critical Care Time (minutes): 30
--- NOTE | 2024-11-27 16:20 | P.CONCA_ITS ---
History of Present Illness History of Present Illness Date of Service: 11/27/24 Requesting physician: Robles Mike Chief complaint: Symptomatic bradycardia Narrative: 69-year old female with medical history significant for HFpEF, obesity, CKD 4, DM2, paroxysmal atrial fibrillation, AMY on CPAP, and HTN presented to the ER c/o fatigue and SOB. She was noted to be bradycardic. She was intubated for respiratory failure and started on pressors and inotrope support. She was noted to have pauses >8 seconds in duration on telemetry. EP was consulted for permanent pacemaker implantation for bradycardia. Risks, benefits, and alternatives of permanent pacemaker implantation were discussed with the patient and we mutually decided to proceed forward with permanent pacemaker implantation. Review of Systems 2 Review of Systems: Unable to be obtained as pt is intubated and sedated. [facility] Past Medical History Medical History Heartburn On anticoagulant therapy Interstitial lung disease Respiratory failure with hypoxia Cough Exercise hypoxemia MRSA carrier CAP (community acquired pneumonia) Morbid (severe) obesity due to excess calories Heme positive stool Atrial flutter Elevated serum creatinine AMY on CPAP Chronic renal failure Secondary aldosteronism Acute renal failure Nocturnal hypoxemia Morbid obesity Diabetes type 2, controlled Oxygen dependent HTN (hypertension) Morbid obesity due to excess calories AMY (obstructive sleep apnea) Pneumonia Obesity Elevated creatine kinase Anemia Congestive heart failure High cholesterol Diabetes type 2, uncontrolled Hypertension, essential Family History Family History Father Stroke Mother Stroke Hypertension Diabetes Maternal Grandmother Diabetes Hypertension Stroke Sister Diabetes Breast cancer Son Bipolar 1 disorder Overweight Other Mental health problem Substance abuse Surgical History Surgical History H/O colonoscopy History of surgery History of D&C Social History Social History Household Members: Unknown / Unable to assess Housing: Unknown / Unable to assess Are you a primary manager medicare to a significant other at home: No Do you presently have visiting nurse or other home services: No Unable to assess alcohol history related to: Unable to respond Alcohol intake: current Alcohol intake frequency: does not drink Comment: pt was medicated Patient Tobacco Use Status: Former Tobacco user Smoked in Last 30 Days: No e-Cigarette/Vaping Use: Never Used Second Hand Smoke Exposure: No Use of substances other than those prescribed or required for medical reasons: Unable to respond Currently Displaying Signs/Symptoms of Drug Intoxication Withdrawal: No Advance Directives: Yes Advance Directives on File: Yes Advance Directives Date on File: 06/09/21 Do you have a plan to hurt others: No Plan Recently lost weight without trying: Unsure Nutrition Risks: No Nutritional Risk Patient : No service: No Current occupational status: retired Cognitive needs: No Hearing needs: No Vision needs: Yes Meds Allergies Allergy/AdvReac Type Severity Reaction Status Date / Time penicillin V Allergy Severe joint Verified 11/26/24 15:37 swelling and rash amlodipine [From [facility]] AdvReac Intermediate edema Verified 11/26/24 15:37 Active Medications: Current Medications Chlorhexidine Gluconate (Chlorhexidine Gluc Oral Rinse 15 Ml Mouthwash) 15 ml BUCCAL TID [facility] Last Admin: 11/27/24 08:27 Dose: 15 ml Dextrose (Dextrose 50 % 25 Gm/50 Ml Syringe) 25 gm IVPUSH Q15M PRN; Protocol PRN Reason: per Hypoglycemia Standing Ord. Glucose (Glucose Gel 15 Gm Gel..Gram.) 15 gm PO Q15M PRN; Protocol PRN Reason: per Hypoglycemia Standing Ord. Heparin Sodium (Porcine) (Heparin Sodium,Porcine 5,000 Unit/Ml Vial) 5,000 unit SUBCUT Q8H [facility] Last Admin: 11/27/24 08:27 Dose: 5,000 unit Fentanyl (Sublimaze/Ns) 1,000 mcg in 100 mls @ 0 mls/hr IVCONT .Q0M [facility]; Protocol Last Admin: 11/27/24 12:13 Dose: 150 mcg/hr, 15 mls/hr Propofol (Diprivan) 1,000 mg in 100 mls @ 0 mls/hr IVCONT .Q0M [facility]; Protocol Last Admin: 11/27/24 11:19 Dose: 10 mcg/kg/min, 6.59 mls/hr Dopamine HCl/Dextrose (Dopamine Hcl/D5w) 400 mg in 250 mls @ 0 mls/hr IVCONT .Q0M [facility]; Protocol Last Admin: 11/27/24 12:33 Dose: 5 mcg/kg/min, 20.58 mls/hr Piperacillin Sod/Tazobactam (Sod 2.25 gm/ Sodium Chloride) 50 mls @ 100 mls/hr IV Q8H [facility] Last Infusion: 11/27/24 07:21 Dose: Infused Norepinephrine Bitartrate (Levophed) 8 mg in 250 mls @ 0 mls/hr IVCONT .Q0M [facility]; Protocol Last Titration: 11/27/24 09:45 Dose: 0 mcg/kg/min, 0 mls/hr Epinephrine 5 mg/ Sodium (Chloride) 255 mls @ 0 mls/hr IVCONT .Q0M [facility]; Protocol Last Titration: 11/27/24 12:26 Dose: 0.4 mcg/kg/min, 137.46 mls/hr Vancomycin HCl 500 mg/ Sodium (Chloride) 110 mls @ 110 mls/hr IV ONCE ONE Stop: 11/27/24 11:14 Insulin Human Lispro (Insulin Lispro 100 Unit/Ml 3 Ml Vial) 0 unit SUBCUT Q6H [facility]; Protocol Last Admin: 11/27/24 11:39 Dose: 2 unit Naloxone HCl (Naloxone Hcl 0.4 Mg/Ml Vial) 0.2 mg IVPUSH Q2M PRN PRN Reason: Excessive sedation or RR < 8 Pantoprazole Sodium (Pantoprazole Sodium 40 Mg/10 Ml Vial) 40 mg IVPUSH DAILY@0630 [facility] Last Admin: 11/27/24 06:06 Dose: 40 mg Pharmacy Consult (Consult Rx Vancomycin Dosing) 1 each MISCELLANE DAILY PRN PRN Reason: Consult order Home Medications ?Medication ?Instructions ?Recorded ?Confirmed ?Last Taken ?Type ascorbic acid (vitamin C) 500 mg 500 mg PO DAILY 09/22/20 11/27/24 10/30/24 History tablet fexofenadine 180 mg tablet 180 mg PO DAILY 09/22/20 11/27/24 10/30/24 History multivitamin 1 tab PO DAILY 09/12/22 11/27/24 10/30/24 History epoetin waqar 2,000 unit/mL 3,000 unit subcut Q2W 08/17/24 11/27/24 1 Month Ago History injection solution (Procrit) ~09/29/24 carvedilol 25 mg tablet 25 mg PO BID 10/30/24 11/27/24 10/30/24 History cholecalciferol (vitamin D3) 1,250 1,250 mcg PO PISANO 10/30/24 11/27/24 10/25/24 History mcg (50,000 unit) capsule insulin glargine 100 unit/mL (3 36 unit subcut BEDTIME 11/27/24 11/27/24 Unknown History mL) subcutaneous pen (Lantus Solostar U-100 Insulin) insulin glargine 100 unit/mL (3 38 unit subcut DAILY 11/27/24 11/27/24 Unknown History mL) subcutaneous pen (Lantus Solostar U-100 Insulin) tirzepatide 5 mg/0.5 mL 5 mg subcut MO 11/27/24 11/27/24 11/23/24 History subcutaneous pen injector (Pako) Physical Exam 2 Vital Signs: Vital Signs: Last Vital Signs Temp 100.8 F H 11/27/24 13:00 Pulse 81 11/27/24 13:00 Resp 23 H 11/27/24 13:00 BP 140/51 H 11/27/24 13:00 Pulse Ox 93 11/27/24 13:00 O2 Del Method Mechanical Ventil ation 11/27/24 13:00 O2 Flow Rate 4 11/26/24 18:28 FiO2 80 11/27/24 13:00 Oxygen Flow Rate 4 11/26/24 15:36 BMI result Body Mass Index 45.3 Const: Other: NAD HEENT: Other: anicteric Chest: Other: CTAB Cardio: Other: regular rate, no murmur GI: Other: soft abdomen Skin: Other: cool Neuro: Other: unable to be assessed due to being sedated Psych: Other: unable to be assessed due to being sedated Objective Labs and Meds 11/27/24 05:16 11/27/24 05:16 Lab results: Laboratory Results - last 24 hr 11/26/24 11/26/24 11/26/24 15:11 15:54 16:12 WBC 13.6 H RBC 2.60 L Hgb 7.8 L Hct 25.8 L MCV 99.2 H MCH 30.0 MCHC 30.2 L RDW 17.7 H Plt Count 345 MPV 10.1 Immature Gran % (Auto) 0.7 H Neut % (Auto) 81.2 H Lymph % (Auto) 9.9 L Hartley % (Auto) 6.5 Eos % (Auto) 1.2 Baso % (Auto) 0.5 Lymph # (Auto) 1.4 Hartley # (Auto) 0.9 Eos # (Auto) 0.2 Baso # (Auto) 0.1 Abs Immat Gran (auto) 0.10 H Absolute Neuts (auto) 11.0 H Absolute Nucleated RBC 0.080 H Nucleated RBC % (auto) 0.6 H O2 Saturation ABG pH at Pt Temp ABG pCO2 at Pt Temp ABG pO2 at Pt Temp ABG HCO3 ABG Base Excess (Actual) VBG pH VBG pCO2 VBG pO2 VBG HCO3 VBG O2 Saturation VBG Base Excess Sodium Potassium Chloride Carbon Dioxide Anion Gap BUN Creatinine Estim Creat Clear Calc Estimated GFR POC Glucose 178 H Random Glucose Lactic Acid 3.4 H* Lactic Acid F/U @ 2Hr Calcium Phosphorus Magnesium 2.3 Total Bilirubin AST ALT Alkaline Phosphatase Troponin I High Sens 727.3 H* D B-Natriuretic Peptide 649 H Total Protein Albumin TSH Free T4 Urine Color Urine Appearance Urine pH Ur Specific [place] Urine Protein Urine Glucose (UA) Urine Ketones Urine Blood Urine Nitrite Ur Leukocyte Esterase Urine RBC Urine WBC Urine WBC Clumps Ur Squamous Epith Cells Urine Bacteria Hyaline Casts Gastric Occult Blood Influenza Type A (PCR) NEGATIVE Influenza Type B (PCR) NEGATIVE RSV RNA Qual (PCR) NEGATIVE SARS-CoV-2 RNA (RT-PCR) NEGATIVE Blood Type O Positive Antibody Screen NEGATIVE 11/26/24 11/26/24 11/26/24 17:07 17:15 19:01 WBC RBC Hgb Hct MCV MCH MCHC RDW Plt Count MPV Immature Gran % (Auto) Neut % (Auto) Lymph % (Auto) Hartley % (Auto) Eos % (Auto) Baso % (Auto) Lymph # (Auto) [place] # (Auto) Eos # (Auto) Baso # (Auto) Abs Immat Gran (auto) Absolute Neuts (auto) Absolute Nucleated RBC Nucleated RBC % (auto) O2 Saturation ABG pH at Pt Temp ABG pCO2 at Pt Temp ABG pO2 at Pt Temp ABG HCO3 ABG Base Excess (Actual) VBG pH 7.35 VBG pCO2 46 VBG pO2 30 VBG HCO3 26 VBG O2 Saturation 35.0 VBG Base Excess 0.8 Sodium 139 Potassium 5.5 H Chloride 107 Carbon Dioxide 20 L Anion Gap 18 BUN 68 H Creatinine 5.05 H* Estim Creat Clear Calc 12.1 Estimated GFR 8 POC Glucose 156 H Random Glucose 209 H Lactic Acid Lactic Acid F/U @ 2Hr Calcium 7.8 L D Phosphorus Magnesium Total Bilirubin AST ALT Alkaline Phosphatase Troponin I High Sens B-Natriuretic Peptide Total Protein Albumin TSH Free T4 Urine Color Urine Appearance Urine pH Ur Specific [place] Urine Protein Urine Glucose (UA) Urine Ketones Urine Blood Urine Nitrite Ur Leukocyte Esterase Urine RBC Urine WBC Urine WBC Clumps Ur Squamous Epith Cells Urine Bacteria Hyaline Casts Gastric Occult Blood Influenza Type A (PCR) Influenza Type B (PCR) RSV RNA Qual (PCR) SARS-CoV-2 RNA (RT-PCR) Blood Type Antibody Screen 11/26/24 11/26/24 11/26/24 19:43 20:28 20:32 WBC RBC Hgb Hct MCV MCH MCHC RDW Plt Count MPV Immature Gran % (Auto) Neut % (Auto) Lymph % (Auto) Hartley % (Auto) Eos % (Auto) Baso % (Auto) Lymph # (Auto) Hartley # (Auto) Eos # (Auto) Baso # (Auto) Abs Immat Gran (auto) Absolute Neuts (auto) Absolute Nucleated RBC Nucleated RBC % (auto) O2 Saturation 99.0 ABG pH at Pt Temp 7.26 L ABG pCO2 at Pt Temp 36 ABG pO2 at Pt Temp 406 H ABG HCO3 17 L ABG Base Excess (Actual) -9.1 VBG pH VBG pCO2 VBG pO2 VBG HCO3 VBG O2 Saturation VBG Base Excess Sodium 140 Potassium 4.7 Chloride 107 Carbon Dioxide 17 L Anion Gap 21 H BUN 69 H Creatinine 5.02 H* Estim Creat Clear Calc 12.3 Estimated GFR 9 POC Glucose Random Glucose 253 H D Lactic Acid Lactic Acid F/U @ 2Hr 3.1 H* Calcium 7.8 L Phosphorus Magnesium Total Bilirubin AST ALT Alkaline Phosphatase Troponin I High Sens 880.8 H* B-Natriuretic Peptide 538 H Total Protein Albumin TSH Free T4 Urine Color Cancelled Urine Appearance Urine pH Ur Specific [place] Urine Protein Urine Glucose (UA) Urine Ketones Urine Blood Urine Nitrite Ur Leukocyte Esterase Urine RBC Urine WBC Urine WBC Clumps Ur Squamous Epith Cells Urine Bacteria Hyaline Casts Gastric Occult Blood Influenza Type A (PCR) Influenza Type B (PCR) RSV RNA Qual (PCR) SARS-CoV-2 RNA (RT-PCR) Blood Type Antibody Screen 11/26/24 11/26/24 11/26/24 20:32 20:32 20:32 WBC RBC Hgb Hct MCV MCH MCHC RDW Plt Count MPV Immature Gran % (Auto) Neut % (Auto) Lymph % (Auto) Hartley % (Auto) Eos % (Auto) Baso % (Auto) Lymph # (Auto) Hartley # (Auto) Eos # (Auto) Baso # (Auto) Abs Immat Gran (auto) Absolute Neuts (auto) Absolute Nucleated RBC Nucleated RBC % (auto) O2 Saturation ABG pH at Pt Temp ABG pCO2 at Pt Temp ABG pO2 at Pt Temp ABG HCO3 ABG Base Excess (Actual) VBG pH VBG pCO2 VBG pO2 VBG HCO3 VBG O2 Saturation VBG Base Excess Sodium Potassium Chloride Carbon Dioxide Anion Gap BUN Creatinine Estim Creat Clear Calc Estimated GFR POC Glucose Random Glucose Lactic Acid Lactic Acid F/U @ 2Hr Calcium Phosphorus Magnesium Total Bilirubin AST ALT Alkaline Phosphatase Troponin I High Sens B-Natriuretic Peptide Total Protein Albumin TSH Free T4 Urine Color Yellow Urine Appearance Cancelled Turbid Urine pH Cancelled 6.5 Ur Specific [place] Cancelled Urine Protein Urine Glucose (UA) Urine Ketones Urine Blood Urine Nitrite Ur Leukocyte Esterase Urine RBC Urine WBC Urine WBC Clumps Ur Squamous Epith Cells Urine Bacteria Hyaline Casts Gastric Occult Blood Influenza Type A (PCR) Influenza Type B (PCR) RSV RNA Qual (PCR) SARS-CoV-2 RNA (RT-PCR) Blood Type Antibody Screen 11/26/24 11/26/24 11/26/24 20:32 20:32 20:32 WBC RBC Hgb Hct MCV MCH MCHC RDW Plt Count MPV Immature Gran % (Auto) Neut % (Auto) Lymph % (Auto) Hartley % (Auto) Eos % (Auto) Baso % (Auto) Lymph # (Auto) Hartley # (Auto) Eos # (Auto) Baso # (Auto) Abs Immat Gran (auto) Absolute Neuts (auto) Absolute Nucleated RBC Nucleated RBC % (auto) O2 Saturation ABG pH at Pt Temp ABG pCO2 at Pt Temp ABG pO2 at Pt Temp ABG HCO3 ABG Base Excess (Actual) VBG pH VBG pCO2 VBG pO2 VBG HCO3 VBG O2 Saturation VBG Base Excess Sodium Potassium Chloride Carbon Dioxide Anion Gap BUN Creatinine Estim Creat Clear Calc Estimated GFR POC Glucose Random Glucose Lactic Acid Lactic Acid F/U @ 2Hr Calcium Phosphorus Magnesium Total Bilirubin AST ALT Alkaline Phosphatase Troponin I High Sens B-Natriuretic Peptide Total Protein Albumin TSH Free T4 Urine Color Urine Appearance Urine pH Ur Specific [place] 1.020 Urine Protein Cancelled 300 (3+) H Urine Glucose (UA) Cancelled 250 H Urine Ketones Cancelled Urine Blood Urine Nitrite Ur Leukocyte Esterase Urine RBC Urine WBC Urine WBC Clumps Ur Squamous Epith Cells Urine Bacteria Hyaline Casts Gastric Occult Blood Influenza Type A (PCR) Influenza Type B (PCR) RSV RNA Qual (PCR) SARS-CoV-2 RNA (RT-PCR) Blood Type Antibody Screen 11/26/24 11/26/24 11/26/24 20:32 20:32 20:32 WBC RBC Hgb Hct MCV MCH MCHC RDW Plt Count MPV Immature Gran % (Auto) Neut % (Auto) Lymph % (Auto) Hart[place] % (Auto) Eos % (Auto) Baso % (Auto) Lymph # (Auto) [place] # (Auto) Eos # (Auto) Baso # (Auto) Abs Immat Gran (auto) Absolute Neuts (auto) Absolute Nucleated RBC Nucleated RBC % (auto) O2 Saturation ABG pH at Pt Temp ABG pCO2 at Pt Temp ABG pO2 at Pt Temp ABG HCO3 ABG Base Excess (Actual) VBG pH VBG pCO2 VBG pO2 VBG HCO3 VBG O2 Saturation VBG Base Excess Sodium Potassium Chloride Carbon Dioxide Anion Gap BUN Creatinine Estim Creat Clear Calc Estimated GFR POC Glucose Random Glucose Lactic Acid Lactic Acid F/U @ 2Hr Calcium Phosphorus Magnesium Total Bilirubin AST ALT Alkaline Phosphatase Troponin I High Sens B-Natriuretic Peptide Total Protein Albumin TSH Free T4 Urine Color Urine Appearance Urine pH Ur Specific [place] Urine Protein Urine Glucose (UA) Urine Ketones Negative Urine Blood Cancelled Large (3+) H Urine Nitrite Cancelled Positive H Ur Leukocyte Esterase Cancelled Urine RBC Urine WBC Urine WBC Clumps Ur Squamous Epith Cells Urine Bacteria Hyaline Casts Gastric Occult Blood Influenza Type A (PCR) Influenza Type B (PCR) RSV RNA Qual (PCR) SARS-CoV-2 RNA (RT-PCR) Blood Type Antibody Screen 11/26/24 11/26/24 11/26/24 20:32 22:18 22:26 WBC RBC Hgb Hct MCV MCH MCHC RDW Plt Count MPV Immature Gran % (Auto) Neut % (Auto) Lymph % (Auto) [place] % (Auto) Eos % (Auto) Baso % (Auto) Lymph # (Auto) [place] # (Auto) Eos # (Auto) Baso # (Auto) Abs Immat Gran (auto) Absolute Neuts (auto) Absolute Nucleated RBC Nucleated RBC % (auto) O2 Saturation ABG pH at Pt Temp ABG pCO2 at Pt Temp ABG pO2 at Pt Temp ABG HCO3 ABG Base Excess (Actual) VBG pH VBG pCO2 VBG pO2 VBG HCO3 VBG O2 Saturation VBG Base Excess Sodium Cancelled Potassium Cancelled Chloride Carbon Dioxide Anion Gap BUN Creatinine Estim Creat Clear Calc Estimated GFR POC Glucose Random Glucose Lactic Acid Lactic Acid F/U @ 2Hr Calcium Phosphorus Magnesium Total Bilirubin AST ALT Alkaline Phosphatase Troponin I High Sens B-Natriuretic Peptide Total Protein Albumin TSH Free T4 Urine Color Urine Appearance Urine pH Ur Specific [place] Urine Protein Urine Glucose (UA) Urine Ketones Urine Blood Urine Nitrite Ur Leukocyte Esterase Large (3+) H Urine RBC 11-20 H Urine WBC >50 H Urine WBC Clumps Present Ur Squamous Epith Cells 0-2 Urine Bacteria 3+ Hyaline Casts 0-2 Gastric Occult Blood POSITIVE H Influenza Type A (PCR) Influenza Type B (PCR) RSV RNA Qual (PCR) SARS-CoV-2 RNA (RT-PCR) Blood Type Antibody Screen 11/26/24 11/27/24 11/27/24 22:26 00:14 05:16 WBC 16.5 H RBC 2.94 L Hgb 8.6 L Hct 28.6 L MCV 97.3 MCH 29.3 MCHC 30.1 L RDW 17.7 H Plt Count 408 H MPV 10.1 Immature Gran % (Auto) 0.5 H Neut % (Auto) 79.7 H Lymph % (Auto) 11.5 L [place] % (Auto) 6.6 Eos % (Auto) 1.2 Baso % (Auto) 0.5 Lymph # (Auto) 1.9 Hartley # (Auto) 1.1 Eos # (Auto) 0.2 Baso # (Auto) 0.1 Abs Immat Gran (auto) 0.09 H Absolute Neuts (auto) 13.1 H Absolute Nucleated RBC 0.050 H Nucleated RBC % (auto) 0.3 H O2 Saturation ABG pH at Pt Temp ABG pCO2 at Pt Temp ABG pO2 at Pt Temp ABG HCO3 ABG Base Excess (Actual) VBG pH VBG pCO2 VBG pO2 VBG HCO3 VBG O2 Saturation VBG Base Excess Sodium 141 Potassium 4.6 4.5 Chloride Cancelled 105 Carbon Dioxide Cancelled 19 L Anion Gap Cancelled 22 H BUN Cancelled 70 H Creatinine Cancelled 5.10 H* Estim Creat Clear Calc Cancelled 11.9 Estimated GFR Cancelled 8 POC Glucose 161 H Random Glucose Cancelled 241 H Lactic Acid Lactic Acid F/U @ 2Hr Calcium Cancelled 8.2 L Phosphorus 7.7 H Magnesium 2.3 Total Bilirubin 0.2 AST 540 H ALT 377 H Alkaline Phosphatase 168 H Troponin I High Sens 2510.3 H* D B-Natriuretic Peptide Total Protein 7.1 Albumin 3.2 L TSH 4.41 H Free T4 0.82 Urine Color Urine Appearance Urine pH Ur Specific [place] Urine Protein Urine Glucose (UA) Urine Ketones Urine Blood Urine Nitrite Ur Leukocyte Esterase Urine RBC Urine WBC Urine WBC Clumps Ur Squamous Epith Cells Urine Bacteria Hyaline Casts Gastric Occult Blood Influenza Type A (PCR) Influenza Type B (PCR) RSV RNA Qual (PCR) SARS-CoV-2 RNA (RT-PCR) Blood Type Antibody Screen 11/27/24 11/27/24 05:22 11:36 WBC RBC Hgb Hct MCV MCH MCHC RDW Plt Count MPV Immature Gran % (Auto) Neut % (Auto) Lymph % (Auto) [place] % (Auto) Eos % (Auto) Baso % (Auto) Lymph # (Auto) [place] # (Auto) Eos # (Auto) Baso # (Auto) Abs Immat Gran (auto) Absolute Neuts (auto) Absolute Nucleated RBC Nucleated RBC % (auto) O2 Saturation ABG pH at Pt Temp ABG pCO2 at Pt Temp ABG pO2 at Pt Temp ABG HCO3 ABG Base Excess (Actual) VBG pH 7.31 L VBG pCO2 44 VBG pO2 52 VBG HCO3 23 VBG O2 Saturation 74.0 VBG Base Excess -3.0 Sodium Potassium Chloride Carbon Dioxide Anion Gap BUN Creatinine Estim Creat Clear Calc Estimated GFR POC Glucose 199 H Random Glucose Lactic Acid Lactic Acid F/U @ 2Hr Calcium Phosphorus Magnesium Total Bilirubin AST ALT Alkaline Phosphatase Troponin I High Sens B-Natriuretic Peptide Total Protein Albumin TSH Free T4 Urine Color Urine Appearance Urine pH Ur Specific [place] Urine Protein Urine Glucose (UA) Urine Ketones Urine Blood Urine Nitrite Ur Leukocyte Esterase Urine RBC Urine WBC Urine WBC Clumps Ur Squamous Epith Cells Urine Bacteria Hyaline Casts Gastric Occult Blood Influenza Type A (PCR) Influenza Type B (PCR) RSV RNA Qual (PCR) SARS-CoV-2 RNA (RT-PCR) Blood Type Antibody Screen Imaging Radiologist's impression: Impressions Chest X-Ray 11/26/24 15:57 IMPRESSION: 1. Limited by habitus and apical lordotic technique. 2. Similar interstitial changes in the lower lungs. Cardiomegaly. 3. Allowing for technique, no active superimposed disease. Electronically signed by: Dereck Cuadra MD 11/26/2024 04:26 PM EST RP Guidance Fluoroscopy 11/27/24 14:43 IMPRESSION: Fluoroscopy during procedure. Please see procedure report for additional information. Electronically signed by: Ministerio Roberts MD 11/27/2024 03:47 PM EST RP Assessment and Plan (1) Symptomatic bradycardia: Status: Acute (2) Cardiogenic shock: Status: Acute (3) Respiratory failure: Qualifiers: Chronicity: acute Respiratory failure complication: unspecified whether with hypoxia or hypercapnia Qualified Code(s): J96.00 - Acute respiratory failure, unspecified whether with hypoxia or hypercapnia Status: Acute (4) Acute UTI: Status: Acute (5) CKD (chronic kidney disease) stage 4, GFR 15-29 ml/min: Status: Acute (6) (HFpEF) heart failure with preserved ejection fraction: Qualifiers: Heart failure chronicity: unspecified Qualified Code(s): I50.30 - Unspecified diastolic (congestive) heart failure Status: Acute (7) Type 2 diabetes mellitus: Qualifiers: 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 Prior to initiation of the procedure, during peripheral IV access and arterial line placement, patient was noted to be in PEA. CPR was promptly initiated. I was present for and supervised the CPR. Please refer to the code blue documentation regarding further details pertaining to the cardiac arrest. In light of this, I elected to proceed with temporary pacemaker implantation via L. IJ with Dr. Mike's assistance. Desirable capture was obtained. The system was locked and the sheath was sutured to the underlying skin. Despite this, the patient coded again (PEA) and CPR was again restarted with ROSC. I, along with Dr. Mike (cardiology) and Dr. Webster (ICU) discussed the patient's critical condition with the family members at length. The family members decided to proceed against further CPR if the patient experiences another cardiac arrest. Recommend continuing ICU care. There is likely more than the cardiac component contributing to patient's critical condition - such as sepsis. Her blood cultures are pending. If we see clinical improvement and pt's condition improves over the next few days we can revisit permanent pacemaker implantation at that point. For now, recommend temporary transvenous pacemaker for cardiac support. Total time managing care of this patient today: 90 minutes. Procedures Date of Service Date of Service: 11/27/24
--- NOTE | 2024-11-27 16:33 | PC.RT ---
Omer Gonzalez called on pt w/ RN x3, RT and OR team at bedside. RT took pt off ventilator and initiated bag valve ventilation. Throughout code, pt was frequently in line suctioned w/ shashank. Copious amounts of tabitah blood suctioned endotracheally and orally. Post ROSC, pt placed back on ventilator. Will continue to monitor.
--- NOTE | 2024-11-27 16:49 | PM.DDS ---
Discharge Sum: Prov Provider Primary care physician: Sadi Harden MD Consults: 11/27/24 05:46 Consult to Cardiology Stat Consulting Provider: [facility] Reason for consultation: cardiogenic shock, bradycardia, evaluatr for PPM Has provider been notified: No Consult to Nephrology Stat Consulting Provider: [facility] Reason for consultation: Renal failure Has provider been notified: No Consult to Vascular Surgery Stat Consulting Provider: [facility] Reason for consultation: AV fisula patency Has provider been notified: No Discharge Sum: Diag Contributing Factors (1) Symptomatic bradycardia: (2) Cardiogenic shock: (3) Respiratory failure: (4) Acute UTI: (5) CKD (chronic kidney disease) stage 4, GFR 15-29 ml/min: (6) (HFpEF) heart failure with preserved ejection fraction: (7) Type 2 diabetes mellitus: Discharge Sum: Summary Date and Time Date of admission: 11/26/24 21:18 Date of : 11/27/24 Time of : 16:50 Summary Details: Old lady with underlying AFib on Eliquis, diastolic heart failure, CKD stage 4, ILD on home O2 admitted on 11/27/2024 with dyspnea, syncopal event, and hypotension. On ER evaluation patient in shock requiring pressor support. Further in ER patient with development of bradycardia and agonal breathing, intubated for airway protection and administered atropine with improvement in her bradycardia. Patient admitted to the intensive care unit. Further hospital course significant for bradycardic episode with recurrent shock requiring transcutaneous pacing and multiple pressor support. Patient evaluated by Cardiology service and taken for permanent pacemaker to operating room. Patient with multiple cardiac arrests in the operating room during attempted permanent pacemaker placement. Permanent pacemaker placement abandoned secondary to multiple cardiac arrest in OR with successful resuscitation. Patient had transjugular temporary wire placed. After arrival to the intensive care unit patient with repeat cardiac arrest with CPR started immediately and successful resuscitation after 15 minutes of CPR. Overall poor prognosis discussed with patient's healthcare proxy and family who made decision to switch code status to DNR DNI. Thereafter, patient with a repeat pulseless electrical activity arrest at 16:15, pronounced at that time. Additional Data Confirmation of as documented by pronouncing clinician: no pulse, no respirations and no heart sounds Family: at bedside Attending physician: Bryson Webster MD
--- NOTE | 2024-11-27 16:50 | PC.RT ---
Pt taken off ventilator per MD request. ETT still in place. Pt .
--- NOTE | 2024-11-27 17:00 | CA_ITS ---
Transthoracic Echocardiogram Patient (Last, First, Middle): Amaris Hook E Gender: Female Date of : 1955 Age: 69 Procedure Date: 11/27/2024 Procedure Type: Transthoracic Echocardiogram Location: ICU Height: 157. cm Weight: 112.01 kg BSA: 2.09 m2 Heart Rate: 93 bpm BP: 148 / 64 mmHg Geotechnicial Properties Technician: Referring MD: Bryson Webster MD Symptoms: cardiogenic shock Study Quality: Adequate w/Contrast ECG Rhythm: Atrial Fibrillation Conclusions: - Normal left ventricular size and systolic function. There is moderately increased left ventricular wall thickness. The visually estimated ejection fraction is between 60-65%. - Normal right ventricular cavity size. There is mild to moderately decreased right ventricular systolic function. - There is mild aortic valve stenosis. Findings Procedure Information Contrast agent, definity, is being given per protocol without apparent complications. Left Ventricle Normal left ventricular size and systolic function. There is moderately increased left ventricular wall thickness. The visually estimated ejection fraction is between 60-65%. There is no evidence of regional wall motion abnormalities. Diastolic function is indeterminate on the basis of available data. Right Ventricle Normal right ventricular cavity size. There is mild to moderately decreased right ventricular systolic function. Atria The left atrium is normal in size. Aortic Valve The aortic valve was not well visualized. There is mild calcification of the aortic valve. There is mild aortic valve stenosis. There is no aortic valve regurgitation. Mitral Valve The mitral valve appears normal. There is no mitral valve regurgitation. There is no mitral valve stenosis. Pulmonic Valve The pulmonic valve was not well visualized. Tricuspid Valve Normal tricuspid valve structure. There is no tricuspid valve regurgitation. Indeterminate right atrial pressure. Great Vessels All visible segments of the aorta are normal in size. The visualized portions of the pulmonary artery and branches are normal. Venous The inferior vena cava is dilated and does not collapse with inspiration. Pericardium/Pleural There is no evidence of pericardial effusion. Prior Study Comparison Changes noted compared to prior study dated: 11/02/2024. RV mild to moderate dysfunction (mild before). Measurements 2D Linear Measurements IVSd: 1.30 0.6-0.9/0.6-1.0 cm LVIDd: 4.32 3.9-5.3/4.2-5.9 cm LVIDd Index: 2.07 2.4-3.2/2.2-3.1 cm/m2 LVIDs: 2.85 2.0-3.6 cm LVPWd: 1.27 0.7-1.1 cm LA Diam: 2.90 2.7-3.8/3.0-4.0 cm LAIDs Index: 1.39 1.5-2.3 cm/m2 LV Mass: 256.32 67-162/88-224 g LV Mass Index: 122.64 43-95/49-115 g/m2 LVOT Diam: 2.10 3.0+(-)1.3 cm Mitral Valve MV Pk E: 0.73 MV Decel Time: 299.00 E'Lateral: 15.80 E'Medial: 8.27 E/E' Med: 8.90 E/E' Lat: 4.60 PHT: 88.00 MVA PHT: 2.50 Decel Wilkinson: 2.45 Aortic Valve AoV Pk Manny: 2.64 AoV Mn Manny: 1.71 AoV VTI: 0.36 AoV Pk Grad: 28.00 Aov Mn Grad: 14.00 MEIR Cont.VTI: 1.37 LVOT LVOT Pk Manny: 1.07 LVOT Mn Manny: 0.68 LVOT VTI: 0.14 LVOT Pk Grad: 5.00 LVOT Mn Grad: 2.00 LVOT Diam: 2.10 LVOT Area: 3.46 Diastolic Function MV Pk E: 0.73 E'Medial: 8.27 E/E' Med: 8.90 E' Laterial: 15.80 E/E' Lat: 4.60 Right Ventricle TAPSE (mm): 19.80 Tricuspid Valve TR Pk Manny: 2.59 TR Pk Grad: 27.00 Great Vessels Aorta Sinus of Valsalva: 2.90 2.0-3.5 cm Ao Asc: 2.90 2.1-3.4 cm Pulmonary Valve PV Pk Manny: 1.03 Peak PV Grad: 4.00 Updated in Other Vendor System with Status of Final Robles Mike MD electronically signed on 11/27/2024 12:38:17 PM with status of Final
--- NOTE | 2024-11-27 18:55 | PC.NURSE ---
Assumed care of patient 0700 Pt had several episodes of bradycardia summarized with interventions below: #1 07:57 bradycardia down to 48, decreased BP 55/16, SaO2 decreased and then unable to read SaO2 due to poor perfusion. Pt cool, dusky, mottled skin . Pt given Epi 1mg IVP once per MD, levophed gtt increased. Pt paced transcutaneously with zoll monitor at 60mA, 80 ppm. #2 08:22 similar symptoms of bradycardia, decreased BP with MAP<65, low SaO2. Given 1 mg Epi IVP per MD, levophed gtt titrated up per MD. Pt paced transcutaneously with zoll monitor at 60mA, 80 ppm. See MAR Cardiology consult assessed patient. Plan for pacemenaker placement today. These episodes of bradycardia continued at the following times:? #3 08:50? #4 11:00 - 1 mg epi IVP given? #5 12:07 #6 13:00 Each episode lasted between 5-10 minutes. Epinephrine gtt started per MD. Pt paced transcutaneously with zoll monitor at 60mA, 80 ppm during these episodes. Epi gtt increased per protocol.? Pt transported to OR at 13:30 for pacemaker placement. Dopamine Gtt @5, Epi gtt @0.4, Levophed off, Propofol @10, fentanyl @150. Patient transcutaneously paced via zoll monitor en route to OR at 60mA, 80ppm.? Pt returned from OR 15:55. New temporary pacing wire to ventricle placed in OR.? Settings: 100ppm, 5mA. V-paced at 100bpm. Upon pt return, end tidal decreased to 16, pacing on monitor less than 100 ppb. PEA arrest, pt on zoll monitor. See Code Blue documentation. Omer blue called overhead. discussed pt clinical condition with family. Code status changed to DNR/DNI per HCP. Pt 16:50
[2024-11-28 11:31] LABS: ABG Refer to POC result
--- NOTE | 2024-12-11 09:42 | P.CDIM_ITS ---
PROVIDER RESPONSE TEXT: To clarify, the appropriate diagnosis supported by the clinical indicators: After study Sepsis has been ruled out QUERY TEXT: PHYSICIAN'S DOCUMENTATION REQUEST Date of Query: 12/11/2024 09:17 AM EST Patient Name: Amaris Hook Admit Date: 11/27/2024 Dear Bryson Wbester MD, RETROSPECTIVE QUERY A review of the medical record indicates additional documentation may be needed. Please review below and update the documentation accordingly. Clinical indicators: ED 11/26/24- Patient met Severe Sepsis criteria with Hypotension. WBC 13.6/16.5 LA 3.4 HR 50/48 L RR Temp 97.9/100.8 Patient's urine returned, the only possible source of infection at this time is a UTI. Patient is alr kayce covered with Zosyn. UA+ Cardiology consult note dated 11/27 - Recommend continuing ICU care. There is likely more than the card iac component contributing to patient's critical condition - Such as Sepsis. Her blood cultures are pending. ICU note dated 11/27 - ID: Sepsis not suspected. Treating with Zosyn for UTI. Intubated/Vent support Please clarify the documentation of Sepsis: Sepsis remains a known or suspected condition for this patient possible, probable, unable to rule out Severe Sepsis After study Sepsis has been ruled out Other (explain) Clinically unable to determine (explain) Thank you, Saadia Escamilla, CCS, CDIS Use of terms such as suspected, likely, concern for, or probable (associated with a specific diagnosi s that is being evaluated, monitored, or treated as if it exists) are acceptable and can be coded in the inpatient se tting, when documented at the time of discharge. Please use your independent medical judgment in providing your response. THIS QUERY IS PART OF THE PERMANENT MEDICAL RECORD
--- NOTE | 2024-12-11 09:42 | P.CDIM_ITS ---
PROVIDER RESPONSE TEXT: To clarify, the appropriate diagnosis supported by the clinical indicators: Other (explain): Cardiogenic shock QUERY TEXT: PHYSICIAN'S DOCUMENTATION REQUEST Date of Query: 12/11/2024 08:59 AM EST Patient Name: Amaris Hook Admit Date: 11/27/2024 Dear Bryson Webster MD, RETROSPECTIVE QUERY A review of the medical record indicates additional documentation may be needed. Please review below and update the documentation accordingly. Clinical Indicators: ED 11/26 -Patient having short of breath, agonal breathing, Ambu bag ventilation, heart rate dropped to the 30's likely secondary to hypoxia. Intubated, started on Dobutamine. Levophed started. Cardiogenic shock is suspected at this time. Cardiology consultation note dated 11/27/24 - Patient is currently in ICU on pressors for symptomatic b radycardia. Mildly elevated troponin-Type 2 from hypoperfusion and elevated creatinine. ICU note 11/27 - While in ED PT's HR was 35-42 with pause up to about 8 seconds. Bigeminy noted. BP 59/ 25. Atropine 1mg and was started on dopamine drip. Troponin levels: 727.3/880.05/2510.3 Please clarify a diagnosis that could possibly correlates with these elevated Troponin levels:, if kn own: Type 2 Myocardial infarction possible, suspected, probable Other specified Other (explain) Clinically unable to determine (explain) Thank you, Saadia Escamilla, CCS, CDIS Use of terms such as suspected, likely, concern for, or probable (associated with a specific diagnosi s that is being evaluated, monitored, or treated as if it exists) are acceptable and can be coded in the inpatient se tting, when documented at the time of discharge. Please use your independent medical judgment in providing your response. THIS QUERY IS PART OF THE PERMANENT MEDICAL RECORD
== END 2024-11-27 16:50 | disposition expired | DRG 308 ==
LOC: HO.ED 16:19 → HO.EDOVER 22:17 → HO.ICU 11-27
PROVIDERS: Physician Assistant Medical; Student in an Organized Health Care Education/Training Program; Admitting Provider Nurse Practitioner Family; Emergency Provider Emergency Medicine; PCP Family Medicine; Visit Provider Internal Medicine Pulmonary Disease
DX: I49.5 Sick sinus syndrome (principal); J96.20 Acute and chronic respiratory failure, unspecified whether with hypoxia or hypercapnia; I13.0 Hypertensive heart and chronic kidney disease with heart failure and stage 1 through stage 4 chronic kidney disease, or unspecified chronic kidney disease; I50.32 Chronic diastolic (congestive) heart failure; N18.4 Chronic kidney disease, stage 4 (severe); N39.0 Urinary tract infection, site not specified; J84.9 Interstitial pulmonary disease, unspecified; Z68.42 Body mass index [BMI] 45.0-49.9, adult; N17.9 Acute kidney failure, unspecified; E11.22 Type 2 diabetes mellitus with diabetic chronic kidney disease; I48.0 Paroxysmal atrial fibrillation; Z66 Do not resuscitate; R57.0 Cardiogenic shock; I46.9 Cardiac arrest, cause unspecified; D63.1 Anemia in chronic kidney disease; G47.33 Obstructive sleep apnea (adult) (pediatric); E66.01 Morbid (severe) obesity due to excess calories; Z99.81 Dependence on supplemental oxygen; Z20.822 Contact with and (suspected) exposure to COVID-19; Z79.4 Long term (current) use of insulin; Z79.01 Long term (current) use of anticoagulants; Z79.899 Other long term (current) drug therapy
CPT/HCPCS: 0241U; 36415; 71045; 71250; 80048; 80053; 81001; 82271; 82803; 82947; 83605; 83735; 83880; 84100; 84132; 84439; 84443; 84484; 85025; 86850; 86900; 86901; 87040; 87086; 87088; 87186; 93005; 93306; 94002; 94003; 94799; 99285; C1769; C1894; J0171; J0461; J0613; J1250; J1265; J1644; J2003; J2250; J2371; J2470; J2543; J2704; J3010; J3370

== ENCOUNTER → 2024-11-26 15:57 | Outpatient (BNV) | payer MEDICARE, SELFPAY | PROVIDERS: Emergency Provider Emergency Medicine; PCP Family Medicine; Visit Provider Radiology Diagnostic Radiology | DX: R06.02 Shortness of breath (principal); I95.9 Hypotension, unspecified | CPT/HCPCS: 71045; 71250 ==

== ENCOUNTER 2024-11-26 21:18 | Outpatient (BNV) | payer MEDICARE, SELFPAY | END 2024-11-27 17:00 | PROVIDERS: Admitting Provider Nurse Practitioner Family; Emergency Provider Emergency Medicine; PCP Family Medicine; Visit Provider Internal Medicine Cardiovascular Disease | DX: I49.2 Junctional premature depolarization (principal) | CPT/HCPCS: 93010 ==

== ENCOUNTER → 2024-11-26 21:18 | Outpatient (BNV) | CPT/HCPCS: 93010; 99223 ==

== ENCOUNTER → 2024-11-26 21:18 | Outpatient (BNV) | payer MEDICARE, SELFPAY | PROVIDERS: Admitting Provider Nurse Practitioner Family; Emergency Provider Emergency Medicine; PCP Family Medicine; Visit Provider Surgery Vascular Surgery | DX: N18.9 Chronic kidney disease, unspecified (principal) | CPT/HCPCS: 99024 ==

== ENCOUNTER → 2024-11-26 21:18 | Outpatient (BNV) | payer MEDICARE, SELFPAY | PROVIDERS: Admitting Provider Nurse Practitioner Family; Emergency Provider Emergency Medicine; PCP Family Medicine; Visit Provider Internal Medicine Pulmonary Disease | DX: R00.1 Bradycardia, unspecified (principal); R57.0 Cardiogenic shock; J96.00 Acute respiratory failure, unspecified whether with hypoxia or hypercapnia; N39.0 Urinary tract infection, site not specified; N18.4 Chronic kidney disease, stage 4 (severe); I50.30 Unspecified diastolic (congestive) heart failure; E11.649 Type 2 diabetes mellitus with hypoglycemia without coma; Z79.4 Long term (current) use of insulin | CPT/HCPCS: 99239; 99499 ==